=== PATIENT | female | born 1955 | race Caucasian/White ===

== ENCOUNTER 2024-01-09 09:11 | Outpatient (AMB) | payer MEDICARE, SELFPAY ==
--- NOTE | 2024-01-09 09:59 | MHC.OFFWIV ---
Intake Vital Signs 01/09/24 10:01 Weight 89.358 kg BP 136/80 Blood Pressure Location Rt brachial Position Sitting Pulse 74 Pulse Source Pulse Oximeter Pulse Oximetry (%) 98 Oxygen Delivery Method Room Air Intake Visit Reasons: EST/balance issues fell on tuesday (lobby) Intake Note: Patient here is having balance issues, has had a couple of falls since moving here in august. pt also mentions she has been having getting words out and memory issues. Son has a concern of maybe pt over medicating. Patient Tobacco Use Status: Former Tobacco user Accompanied by: Son Allergies No Known Allergies Allergy (Verified 01/09/24 10:06) Do you need a note to return to daycare/school/sports/work: No HPI HPI Comments History of Present Illness Details 1028 68 year old female hx of bipolar d/o, htn presents w/ difficulties w/ ambulation and changes in speech over the past 1-2 weeks worsening. She is here with her son who recently brought her here from [place]. These changes are new and has never occurred in the past. Patient tells me know something is really wrong because I have never felt this way. Denies chest pain, shortness breath, fevers, chills, nausea, vomiting, abdominal pain, changes in urination Patient with a very unsteady shuffling gait swaying from side to side and an interrupted speech with multiple pauses between words and some confusion. Concerns for TIA/stroke/electrolyte abnormalities/UTI. Patient should be evaluated in the emergency department [facility] Social History Patient Tobacco Use Status: Former Tobacco user Review of Systems Const All systems reviewed & are unremarkable except as noted in HPI and below Physical Exam Vital Signs: Last Vital Signs Pulse 74 01/09/24 10:01 BP 136/80 01/09/24 10:01 Pulse Ox 98 01/09/24 10:01 Oxygen Delivery Method Room Air 01/09/24 10:01 vss Appearance: Alert.? Oriented X3.? No acute distress.? Head: Normocephalic, atraumatic, no step-offs or deformities Eyes: Pupils equal, round and reactive to light.? ENT: Pharynx normal.? Neck: Normal inspection.? Neck supple.? CVS: Normal heart rate and rhythm.? Pulses normal.? Respiratory: No respiratory distress.? Breath sounds normal.? Abdomen: Soft and nontender.? Skin: Skin warm and dry.? Normal skin color.? Normal skin turgor.? Extremities: No lower extremity edema.? No calf ttp. 5/5 strength to bilateral upper and lower extremities Back: No midline tenderness, no C-spine tenderness, full range of motion, no CVA tenderness bilaterally Neuro: Oriented X 3.? No motor deficit.? No sensory deficit. CN 2-12 intact Assessment & Plan Assessment & Plan (1) Difficulty with speech: Code(s): R47.9 - Unspecified speech disturbances (2) Gait abnormality: Code(s): R26.9 - Unspecified abnormalities of gait and mobility Plan Take your medications as prescribed. If you were prescribed antibiotics today, it is important that you take your medication to their entirety, do not skip any doses, do not finish them early. Follow-up with your primary care provider this week. Return to the emergency department with new or worsening symptoms. Such as fevers, chills, chest pain, shortness of breath, nausea, vomiting, dizziness, headache, vision changes, lethargy In case of emergency call 911 Coding Level of Care Code Est Pt Level 3 (87695) Diagnoses Difficulty with speech R47.9 Gait abnormality R26.9
[2024-01-09 10:01] VITALS: BP 136/80; PULSE 74; O2SAT 98
== END 2024-01-09 15:27 | disposition home or self-care (01) ==
PROVIDERS: PCP Nurse Practitioner Family; Visit Provider Physician Assistant
DX: R47.9 Unspecified speech disturbances (principal); R26.9 Unspecified abnormalities of gait and mobility
CPT/HCPCS: 99213

== ENCOUNTER 2024-01-09 10:51 | Emergency (ER) | payer MEDICARE, SELFPAY ==
--- NOTE | ~2024-01-09 | CT_ITS ---
EXAMINATION: CT HEAD WITHOUT CONTRAST CT CERVICAL SPINE WITHOUT CONTRAST CLINICAL INFORMATION: Fall. Head strike. Neurologic deficits. COMPARISON: None available. TECHNIQUE: Contiguous axial imaging was performed from the skull base to vertex without intravenous administration of contrast. Contiguous axial imaging was performed from the upper chest through the skull base without intravenous administration of contrast. Coronal and sagittal reformats were obtained at the acquisition workstation. This CT examination was performed using dose optimization techniques as appropriate, variously including the following: *Automated exposure control. *Adjustment of mA and/or kV according to patient size (this includes techniques or standardized protocols for targeted exams where dose is matched to indication/reason for exam; i.e. extremities or head). *Use of iterative reconstruction technique. DLP: 1144 mGy-cm FINDINGS: Head: There is no evidence of acute intracranial hemorrhage or edematous territorial infarction. Delgado-white matter differentiation is preserved. Scattered and partially confluent hypoattenuation in the periventricular and deep white matter are consistent with mild to moderate microangiopathy. Proportional prominence of the ventricles and sulcal spaces without evidence of obstructive hydrocephalus. No abnormal mass effect or midline shift. No extra-axial fluid collections. No acute soft tissue or osseous abnormalities. Mild mucosal thickening of the paranasal sinuses. The mastoid air cells and middle ear cavities are clear. Cervical Spine: Instrumented anterior fusion of C4-C7. The atlantooccipital and atlantoaxial articulations remain well aligned. Moderate degenerative arthropathy of the atlantodental articulation. Straightening of the normal cervical lordosis. Mild degenerative anterolisthesis of C7 on T1. Otherwise, there is anatomic alignment of the vertebral bodies and posterior elements. No evidence of acute fracture or subluxation. The vertebral body heights are maintained. Facet and uncovertebral joint arthropathy leads to osseous encroachment on the neural foramina from C2-T1. There is no prevertebral soft tissue swelling. The thyroid gland and remaining cervical soft tissues are within normal limits. The lung apices demonstrate no abnormalities. CT/CT cervical spine wo IV con IMPRESSION: 1. No evidence of acute intracranial hemorrhage or edematous territorial infarction. 2. No evidence of acute fracture or traumatic subluxation of the cervical spine. 3. Mild to moderate underlying microangiopathy and generalized cerebral volume loss. 4. Instrumented anterior fusion of C4-C7. Moderate multilevel degenerative spondyloarthropathy of the cervical spine.
--- NOTE | ~2024-01-09 | MR_ITS ---
EXAMINATION: MR BRAIN WITHOUT CONTRAST CLINICAL INFORMATION: Question stroke. COMPARISON: Head CT dated 01/09/2024. TECHNIQUE: Multiplanar, multisequence imaging of the brain was performed without contrast. FINDINGS: No diffusion abnormalities are identified to suggest an acute infarct. The ventricles are normal in size. No mass effect or midline shift is seen. Mild to moderate scattered white matter signal changes are visible. There is mild to moderate bifrontal volume loss with concordant ex vacuo dilatation of the ventricles. There is symmetric T1 hyperintense signal change in the globus pallidus of the basal ganglia bilaterally. No extra-axial fluid collections are seen. The brainstem and cerebellum are normal. The gradient refocused acquisition is normal. The craniovertebral junction, marrow signal, and midline structures are normal. The major intracranial flow voids at the level of the [place] of [place] are preserved. The dural venous sinus flow voids are maintained. There is a mild amount of fluid in the right mastoid air cells. The left mastoid air cells are clear. There is a [id number] fluid level in the right sphenoid sinus and mild to moderate ethmoid sinus mucosal thickening. MR/MR head/brain wo con IMPRESSION: No acute intracranial process. No acute infarct. Scattered nonspecific mild to moderate white matter signal changes which may be due to chronic microangiopathy. Symmetric signal changes in the globus pallidus of the basal ganglia bilaterally is nonspecific but can be seen in the setting of hepatic dysfunction; clinically correlate.
--- NOTE | 2024-01-09 11:31 | ED.GENADULT ---
HPI - General Adult General Chief complaint: Neuro Symptoms/Deficit Stated complaint: falling memory loss Time Seen by Provider: 01/09/24 12:26 History of Present Illness HPI narrative: this is RME note I already signed the chart Related Data Home Medications Medication Instructions Recorded Confirmed acetaminophen 325 mg tablet 650 mg PO Q8H PRN ARTHRITIS PAIN 01/09/24 01/09/24 albuterol sulfate 90 mcg/actuation 1 inh inhalation BID PRN Shortness 01/09/24 01/09/24 aerosol inhaler Of Breath Or Wheezing aspirin 81 mg tablet,delayed 81 mg PO DAILY 01/09/24 01/09/24 release atorvastatin 80 mg tablet 80 mg PO DAILY 01/09/24 01/09/24 carbamazepine 200 mg tablet 200 mg PO TID 01/09/24 01/09/24 citalopram 40 mg tablet 40 mg PO DAILY 01/09/24 01/09/24 clopidogrel 75 mg tablet (Plavix) 75 mg PO DAILY 01/09/24 01/09/24 cyclobenzaprine 10 mg tablet 10 mg PO BEDTIME PRN Headache 01/09/24 01/09/24 ergocalciferol (vitamin D2) 1,250 1,250 mcg PO LEYVA 01/09/24 01/09/24 mcg (50,000 unit) capsule famotidine 40 mg tablet 40 mg PO BEDTIME 01/09/24 01/09/24 furosemide 20 mg tablet 20 mg PO DAILY 01/09/24 01/09/24 lactobacillus combination no.4 3 3,000 mmu cells PO DAILY 01/09/24 01/09/24 billion cell capsule (Probiotic) lorazepam 1 mg tablet 1 mg PO QID PRN Anxiety 01/09/24 01/09/24 metoprolol tartrate 25 mg tablet 12.5 mg PO DAILY 01/09/24 01/09/24 multivitamin with minerals-folic 1 tab PO DAILY 01/09/24 01/09/24 acid 0.4 mg tablet omega-3 fatty acids 1,000 mg PO DAILY 01/09/24 01/09/24 quetiapine 200 mg tablet,extended 200 mg PO BEDTIME 01/09/24 01/09/24 release 24 hr temazepam 30 mg capsule 30 mg PO BEDTIME PRN Sleep 01/09/24 01/09/24 Allergies Allergy/AdvReac Type Severity Reaction Status Date / Time No Known Allergies Allergy Verified 01/09/24 10:06 [facility] Social History Social History Patient Tobacco Use Status: Former Tobacco user Smoked in Last 30 Days: No Use of substances other than those prescribed or required for medical reasons: No Advance Directives: No Advance Directives Information Provided: No Physical Exam ED Vital Signs: Vital Signs - 24 hr 01/09/24 11:32 01/09/24 14:05 01/09/24 14:08 Temperature 98.1 F 97.7 F Pulse Rate 94 95 89 Respiratory Rate 16 18 Blood Pressure 127/80 131/74 146/94 H Pulse Oximetry 97 94 96 Oxygen Delivery Method Room Air Room Air 01/09/24 15:40 Temperature Pulse Rate 89 Respiratory Rate 17 Blood Pressure 146/94 H Pulse Oximetry 96 Oxygen Delivery Method Room Air BMI result Body Mass Index 38.3 Course Course Course Narrative: RME:?68 yo female here from (per Bobbi) for eval of gait/ balance disturbance, speech changes x1 week. admits to fall with head strike 3 days ago, on plavix. unknown down time. son saw her 1 day following fall. takes lorazepam- manages medications herself. 4/5 strength to RUE. no facial droop. slurred speech. aox3. ambulating w/ walker. labs imaging ordered Full HPI, ROS and PE to be performed by the primary ED provider. Reevaluation(s) Reevaluation #1: MRI showed no acute intracranial pathology, awaiting for case management and placement versus home physical therapy will Start the patient under physician observation. MRI of the brain:No acute intracranial process. No acute infarct. Scattered nonspecific mild to moderate white matter signal changes which may be due to chronic microangiopathy. Symmetric signal changes in the globus pallidus of the basal ganglia bilaterally is nonspecific but can be seen in the setting of hepatic dysfunction; clinically correlate. Time: 19:23 Medications Administered Discontinued Medications Generic Name Dose Route Start Last Admin Trade Name Freq PRN Reason Stop Dose Admin Magnesium Sulfate 2 gm in 50 mls @ 25 mls/hr 01/09/24 13:01 01/09/24 15:04 Magnesium Sulfate/H2o IV 01/09/24 15:00 Infused ONCE ONE Infusion Potassium Chloride 20 meq 01/09/24 14:02 01/09/24 14:05 Potassium Chloride Er 20 Meq Tab.Er.Prt PO 01/09/24 14:03 20 meq ONCE ONE Administration Medical Decision Making Medical Decision Making [facility] Narrative: Patient presented to emergency department because of frequent fall increasing weakness will check labs ST-T C-spine. Differential Diagnosis Differential Diagnoses: The differential diagnosis associated with the presentation includes Differential diagnosis is broad which include the CVA/polypharmacy Lab Data 01/09/24 12:28 01/09/24 12:28 Labs: Lab Results 01/09/24 01/09/24 01/09/24 Range/Units 12:28 16:24 16:27 WBC 3.5 L (4.8-10.8) X10*3/uL RBC 4.13 L (4.20-5.50) X10*6/uL Hgb 12.1 (12.0-16.0) g/dl Hct 36.3 L (37.0-47.0) % MCV 87.9 (80.0-98.0) fL MCH 29.3 (27.0-33.0) pg MCHC 33.3 (31.0-35.0) g/dl RDW 13.9 (11.0-16.0) % Plt Count 91 L (160-400) X10*3/uL MPV 10.0 (9.4-12.3) fL Immature Gran % (Auto) 0.6 H (0.0-0.4) % Neut % (Auto) 61.4 (45-73) % Lymph % (Auto) 19.4 L (20-40) % Cloud % (Auto) 14.8 H (2-11) % Eos % (Auto) 2.9 (0-4) % Baso % (Auto) 0.9 (0-2) % Lymph # (Auto) 0.7 L (1.2-4.9) X10*3/uL [place] # (Auto) 0.5 (0.1-1.2) X10*3/uL Eos # (Auto) 0.1 (0.0-0.4) X10*3/uL Baso # (Auto) 0.0 (0.0-0.2) X10*3/uL Abs Immat Gran (auto) 0.02 (0.00-0.03) X10*3/uL Absolute Neuts (auto) 2.1 (2.0-8.3) x10*3/uL Absolute Nucleated RBC 0.000 (0.0-0.012) X10*3/uL Nucleated RBC % (auto) 0.0 (0.0-0.2) /100WBC PT 15.3 H (11.1-13.3) SEC INR 1.3 H (0.9-1.1) APTT 38.9 H (26.0-36.8) SEC Sodium 140 (135-145) mmol/L Potassium 3.1 L (3.3-5.1) mmol/L Chloride 105 (96-108) mmol/L Carbon Dioxide 26 (22-29) mmol/L Anion Gap 12 (12-20) BUN 9 (9-16) mg/dL Creatinine 0.85 (0.5-1.4) mg/dL Estim Creat Clear Calc 62.8 Estimated GFR > 60 Random Glucose 104 (60-115) mg/dL Calcium 8.6 (8.4-10.2) mg/dL Magnesium 1.3 L* 1.8 (1.6-2.6) mg/dL Total Bilirubin 1.4 H (0.0-1.0) mg/dL AST 51 H (5-31) U/L ALT 24 (0-31) U/L Alkaline Phosphatase 171 H (39-117) U/L Total Creatine Kinase 450 H (26-140) U/L Total Protein 6.8 (6.5-8.0) g/dL Albumin 3.3 L (3.5-5.0) g/dL Urine Color Yellow Urine Appearance Clear Urine pH 7.5 (5.0-9.0) Ur Specific [place] 1.010 (1.005-1.025) Urine Protein Negative (Neg-Trace) mg/dL Urine Glucose (UA) Negative (Negative) mg/dL Urine Ketones Negative (Negative) mg/dL Urine Blood Negative (Negative) Urine Nitrite Negative (Negative) Ur Leukocyte Esterase Trace H (Negative) Urine RBC 0-2 (0-2) /HPF Urine WBC 0-5 (0-5) /HPF Ur Squamous Epith Cells 0-2 (0-2) /HPF Urine Bacteria None Seen (None Seen) Hyaline Casts 0-2 (0-2) /LPF COVID-19 (CODY) Negative (Negative) COVID-19 Clin Com See Note Discharge Plan Discharge Clinical Impression: Fall, Hypomagnesemia, Hypokalemia, Polypharmacy Patient Disposition: Still a Patient Prescriptions: No Action carbamazepine 200 mg Tablet 200 mg PO TID quetiapine 200 mg Tablet Extended Release 24 Hr 200 mg PO BEDTIME acetaminophen 325 mg Tablet 650 mg PO Q8H PRN (Reason: ARTHRITIS PAIN) aspirin 81 mg Tablet,Delayed Release (Dr/Ec) 81 mg PO DAILY furosemide 20 mg Tablet 20 mg PO DAILY ergocalciferol (vitamin D2) 1,250 mcg (50,000 unit) Capsule 1,250 mcg PO LYEVA [place] 3 Capsule 1,000 mg PO DAILY multivit with min-folic acid [Daily Multiple For Women 50+] 0.4 mg Tablet 1 tab PO DAILY Probiotic 3 billion cell Capsule 3,000 mmu cells PO DAILY Rx Instructions: administer with a meal cyclobenzaprine 10 mg tablet 10 mg PO BEDTIME PRN (Reason: Headache) famotidine 40 mg tablet 40 mg PO BEDTIME metoprolol tartrate 25 mg tablet 12.5 mg PO DAILY atorvastatin 80 mg tablet 80 mg PO DAILY albuterol sulfate 90 mcg/actuation HFA aerosol inhaler 1 inh inhalation BID PRN (Reason: Shortness Of Breath Or Wheezing) clopidogrel [Plavix] 75 mg tablet 75 mg PO DAILY lorazepam 1 mg tablet 1 mg PO QID PRN (Reason: Anxiety) citalopram 40 mg tablet 40 mg PO DAILY temazepam 30 mg capsule 30 mg PO BEDTIME PRN (Reason: Sleep)
[2024-01-09 11:32] VITALS: BP 127/80; PULSE 94; RESP 16; TEMP 36.7; O2SAT 97; BMI 38.3
[2024-01-09 12:32] LABS: MANUAL DIFF FLAG NO
--- NOTE | 2024-01-09 12:33 | ED.NEUROSD ---
HPI - Neuro Symptoms/Deficit General Chief Complaint: Neuro Symptoms/Deficit Stated Complaint: falling memory loss Time Seen by Provider: 01/09/24 12:26 Source: patient Mode of arrival: ambulatory Limitations: no limitations History of Present Illness HPI Narrative: This is a 68 years old female referred to us from the urgent care because for the last week she has been progressively getting weak she fell on Tuesday at home, to be noted though she has taking a lot of psychiatric medication which included benzodiazepine Flexeril. She fell on Tuesday because she lost her balance. Denies any chest pain shortness of breath. Onset (ago): week(s) (1) Timing confirmed by: family member (son) Severity: mild Quality: weak Relieving factors: none Exacerbating factors: none Context: gradual onset Associated symptoms: denies other symptoms Related Data Home Medications Medication Instructions Recorded Confirmed albuterol sulfate 90 mcg/actuation 1 inh inhalation QID 01/09/24 aerosol inhaler atorvastatin 80 mg tablet 80 mg PO DAILY 01/09/24 carbamazepine 200 mg 200 mg PO BID 01/09/24 capsule,extended release [id number] citalopram 40 mg tablet 40 mg PO DAILY 01/09/24 clopidogrel 75 mg tablet (Plavix) 75 mg PO DAILY 01/09/24 cyclobenzaprine 10 mg tablet 10 mg PO BEDTIME PRN 01/09/24 famotidine 40 mg tablet 40 mg PO BEDTIME 01/09/24 lorazepam 1 mg tablet 1 mg PO TID PRN 01/09/24 metoprolol tartrate 25 mg tablet 25 mg PO DAILY 01/09/24 quetiapine 200 mg tablet 200 mg PO BEDTIME 01/09/24 temazepam 30 mg capsule 30 mg PO BEDTIME PRN 01/09/24 Allergies Allergy/AdvReac Type Severity Reaction Status Date / Time No Known Allergies Allergy Verified 01/09/24 10:06 Review of Systems Constitutional: Constitutional: Reports no additional constitutional complaints ENT: Reports system reviewed and no additional complaints, except as documented [facility] Past Medical History Attestation statement: The following information was validated with the patient. [facility] Narrative: Bipolar disorder,htn Social History Social History Patient Tobacco Use Status: Former Tobacco user Smoked in Last 30 Days: No Use of substances other than those prescribed or required for medical reasons: No Advance Directives: No Advance Directives Information Provided: No Physical Exam Vital Signs: Vital Signs: Last Vital Signs Temp 97.7 F 01/09/24 14:05 Pulse 89 01/09/24 15:40 Resp 17 01/09/24 15:40 BP 146/94 H 01/09/24 15:40 Pulse Ox 96 01/09/24 15:40 O2 Del Method Room Air 01/09/24 15:40 BMI result Body Mass Index 38.3 Const: General: cooperative Nutritional Appearance: well nourished Orientation/consciousness: patient oriented x3 Limitations: no limitations HEENT: Head: Yes normal to inspection General nose exam: Normal external nose present Face and sinus: Yes normal facial exam Mouth: Normal oral and palatal mucosa present Neck: Neck: Yes normal visual inspection and Yes full ROM Chest: Chest palpation & inspection: normal inspection of the chest Resp: Effort & Inspection: normal respiratory effort Auscultation: rhonchi Cardio: Jugular venous distension: no JVD Rate: regular rate Rhythm: regular rhythm GI: Inspection: Yes normal to inspection Palpation (GI): Soft to palpation, not firm and nontender Auscultation: normal bowel sounds Neuro: General: patient oriented x3 Cranial nerves: Yes CN's II-XII intact bilaterally Cognition (Neuro): normal cognition Course Reevaluation(s) Reevaluation #1: pt did well with PT I think the reason for her symptoms is polypharmacy ,will get MRI brain anyway if negative will d/c home I am off shift now signed out to Dr Farris Time: 16:11 Medications Administered Discontinued Medications Generic Name Dose Route Start Last Admin Trade Name Freq PRN Reason Stop Dose Admin Magnesium Sulfate 2 gm in 50 mls @ 25 mls/hr 01/09/24 13:01 01/09/24 15:04 Magnesium Sulfate/H2o IV 01/09/24 15:00 Infused ONCE ONE Infusion Potassium Chloride 20 meq 01/09/24 14:02 01/09/24 14:05 Potassium Chloride Er 20 Meq Tab.Er.Prt PO 01/09/24 14:03 20 meq ONCE ONE Administration Procedures EJ/Peripheral Line Arm R: Time Out Performed: Yes Skin Cleansed in Sterile Fashion: Yes Size (gauge): 20 IV Secured and Dressing Applied: Yes Patient Tolerated Procedure: well Additional Comments: under US cannulated rt brachial vein with 20 saturnino catheter Medical Decision Making Lab Data 01/09/24 12:28 01/09/24 12:28 Labs: Lab Results 01/09/24 Range/Units 12:28 WBC 3.5 L (4.8-10.8) X10*3/uL RBC 4.13 L (4.20-5.50) X10*6/uL Hgb 12.1 (12.0-16.0) g/dl Hct 36.3 L (37.0-47.0) % MCV 87.9 (80.0-98.0) fL MCH 29.3 (27.0-33.0) pg MCHC 33.3 (31.0-35.0) g/dl RDW 13.9 (11.0-16.0) % Plt Count 91 L (160-400) X10*3/uL MPV 10.0 (9.4-12.3) fL Immature Gran % (Auto) 0.6 H (0.0-0.4) % Neut % (Auto) 61.4 (45-73) % Lymph % (Auto) 19.4 L (20-40) % [place] % (Auto) 14.8 H (2-11) % Eos % (Auto) 2.9 (0-4) % Baso % (Auto) 0.9 (0-2) % Lymph # (Auto) 0.7 L (1.2-4.9) X10*3/uL [place] # (Auto) 0.5 (0.1-1.2) X10*3/uL Eos # (Auto) 0.1 (0.0-0.4) X10*3/uL Baso # (Auto) 0.0 (0.0-0.2) X10*3/uL Abs Immat Gran (auto) 0.02 (0.00-0.03) X10*3/uL Absolute Neuts (auto) 2.1 (2.0-8.3) x10*3/uL Absolute Nucleated RBC 0.000 (0.0-0.012) X10*3/uL Nucleated RBC % (auto) 0.0 (0.0-0.2) /100WBC PT 15.3 H (11.1-13.3) SEC INR 1.3 H (0.9-1.1) APTT 38.9 H (26.0-36.8) SEC Sodium 140 (135-145) mmol/L Potassium 3.1 L (3.3-5.1) mmol/L Chloride 105 (96-108) mmol/L Carbon Dioxide 26 (22-29) mmol/L Anion Gap 12 (12-20) BUN 9 (9-16) mg/dL Creatinine 0.85 (0.5-1.4) mg/dL Estim Creat Clear Calc 62.8 Estimated GFR > 60 Random Glucose 104 (60-115) mg/dL Calcium 8.6 (8.4-10.2) mg/dL Magnesium 1.3 L* (1.6-2.6) mg/dL Total Bilirubin 1.4 H (0.0-1.0) mg/dL AST 51 H (5-31) U/L ALT 24 (0-31) U/L Alkaline Phosphatase 171 H (39-117) U/L Total Creatine Kinase 450 H (26-140) U/L Total Protein 6.8 (6.5-8.0) g/dL Albumin 3.3 L (3.5-5.0) g/dL Discharge Plan Discharge Clinical Impression: Hypomagnesemia, Hypokalemia, Polypharmacy Fall Qualifiers: Encounter type: initial encounter Qualified Code(s): W19.XXXA - Unspecified fall, initial encounter Patient Disposition: Still a Patient Prescriptions: No Action cyclobenzaprine 10 mg tablet 10 mg PO BEDTIME PRN famotidine 40 mg tablet 40 mg PO BEDTIME metoprolol tartrate 25 mg tablet 25 mg PO DAILY atorvastatin 80 mg tablet 80 mg PO DAILY albuterol sulfate 90 mcg/actuation HFA aerosol inhaler 1 inh inhalation QID clopidogrel [Plavix] 75 mg tablet 75 mg PO DAILY lorazepam 1 mg tablet 1 mg PO TID PRN quetiapine 200 mg tablet 200 mg PO BEDTIME citalopram 40 mg tablet 40 mg PO DAILY carbamazepine 200 mg capsule, ER multiphase 12 hr 200 mg PO BID temazepam 30 mg capsule 30 mg PO BEDTIME PRN
[2024-01-09 12:36] LABS: Basophils Percent Auto 0.9 % (0-2); Eosinophils Absolute Auto 0.1 X10*3/uL (0.0-0.4); Eosinophils Percent Auto 2.9 % (0-4); Hematocrit 36.3 % (37.0-47.0); Hemoglobin 12.1 g/dl (12.0-16.0); Imm Gran Abs Auto 0.02 X10*3/uL (0.00-0.03); Imm Gran Pct Auto 0.6 % (0.0-0.4); Lymphocytes Absolute Auto 0.7 X10*3/uL (1.2-4.9); Lymphocytes Percent Auto 19.4 % (20-40); Mean Corpuscular HGB Conc 33.3 g/dl (31.0-35.0); Mean Corpuscular Hemoglobin 29.3 pg (27.0-33.0); Mean Corpuscular Volume 87.9 fL (80.0-98.0); Monocytes Absolute Auto 0.5 X10*3/uL (0.1-1.2); Monocytes Percent Auto 14.8 % (2-11); Neutrophils Absolute Auto 2.1 x10*3/uL (2.0-8.3); Neutrophils Percent Auto 61.4 % (45-73); Red Blood Count 4.13 X10*6/uL (4.20-5.50); Red Cell Distribution Width 13.9 % (11.0-16.0); White Blood Count 3.5 X10*3/uL (4.8-10.8)
[2024-01-09 12:44] LABS: INTERNATIONAL NORM RATIO 1.3 (0.9-1.1); Prothrombin Time 15.3 SEC (11.1-13.3)
[2024-01-09 12:47] LABS: Partial Thromboplastin Time 38.9 SEC (26.0-36.8)
[2024-01-09 12:49] LABS: Alanine Aminotransferase 24 U/L (0-31); Albumin Level 3.3 g/dL (3.5-5.0); Alkaline Phosphatase 171 U/L (39-117); Anion Gap 12 (12-20); Aspartate Amino Transferase 51 U/L (5-31); Bilirubin Total 1.4 mg/dL (0.0-1.0); Blood Urea Nitrogen 9 mg/dL (9-16); Calcium 8.6 mg/dL (8.4-10.2); Carbon Dioxide 26 mmol/L (22-29); Chloride 105 mmol/L (96-108); Creatinine Clr Calc Pharmacy 62.8; Estimated Glomerular Filt Rate > 60; Glucose Random 104 mg/dL (60-115); Magnesium 1.3 mg/dL (1.6-2.6); Potassium 3.1 mmol/L (3.3-5.1); Sodium 140 mmol/L (135-145); Total Protein 6.8 g/dL (6.5-8.0)
[2024-01-09 12:55] LABS: Platelet Count 91 X10*3/uL (160-400)
--- NOTE | 2024-01-09 13:44 | PC.NURSE ---
pt is alert and oriented, skin pwd, respirations even and unlabored, pt reports for about a month not feeling herself, having difficulty work finding that comes and goes, feeling off balanced and general weak, had a fall few days ago and hit the back of her head and right upper arm bruising noticed, no viable facial droop, speech is clear at this time, moving all extremities but the left arm had a very small drift with slightly weaker hand grasp, denies pain at this time, vs stable and ns on the monitor
[2024-01-09] MEDS: Magnesium Sulfate/H2O 2 GM/50 ML PIGGYBACK IV (14:03)
[2024-01-09 14:05] VITALS: BP 131/74; PULSE 95; RESP 18; TEMP 36.5; O2SAT 94
[2024-01-09] MEDS: Potassium Chloride ER 20 MEQ TAB.ER.PRT PO (14:05)
[2024-01-09 14:08] VITALS: BP 146/94; PULSE 89; O2SAT 96
[2024-01-09 15:40] VITALS: BP 146/94; PULSE 89; RESP 17; O2SAT 96
[2024-01-09 16:35] LABS: Appearance Urine Clear; Color Urine Yellow; Glucose Urine UA Negative (Negative); Leukocyte Esterase Urine Trace (Negative); Nitrite Urine Negative (Negative); PH 7.5 (5.0-9.0); UMIC TRIGGER UACC YES; Urine Blood Negative (Negative); Urine Ketones Negative (Negative); Urine Protein Negative (Neg-Trace)
[2024-01-09 16:38] LABS: Bacteria Urine None Seen (None Seen); Hyaline Casts Urine 0-2 /LPF (0-2); RBC Urine 0-2 /HPF (0-2); Squamous Epithelial Cell Urine 0-2 /HPF (0-2); WBC Urine 0-5 /HPF (0-5)
[2024-01-09 16:47] LABS: Magnesium 1.8 mg/dL (1.6-2.6)
[2024-01-09 17:00] LABS: COVID-19 Test Negative (Negative); IDNOW Serial# 152EDE1D
--- NOTE | 2024-01-09 17:23 | PC.NURSE ---
Pt off to MRI
--- NOTE | 2024-01-09 17:37 | MHC.CM.ED ---
Addendum entered by Senait Jaquez 01/09/24 21:17: Pt noted to have steady gait with rollator. CM met with daughter in law and son at their request. Daughter in law tells CM that patient does not always use her rollator and will furniture surf at home. They understand that CM cannot arrange home PT without a PCP. They are aware that CM will follow up with Adult Medicine tomorrow regarding earlier PCP appointment for this patient. Also aware that task was sent to [facility] for intake. Contact card given. Addendum entered by Senait Jaquez 01/09/24 19:44: Awaiting am call from Adult Primary Medicine RE: First visit appointment earlier than scheduled 04/11. ([id number]). Pt to remain overnight per provider to facilitate Outpatient therapy order and earlier PCP appointment. CM to call Dr. Loera's laboratory secretary for outpatient order form.- Tori ([id number]). ED provider will need to complete and CM will fax to [facility]. Pt and son aware and agreeable. CM will follow for discharge. Addendum entered by Senait Jaquez 01/09/24 17:55: Per Dr. Loera, the PCP's normally order outpatient physical therapy. His laboratory secretary does have a form that the provider can complete for outpatient PT and then it gets faxed to PT. CM will follow up in the am. Son is requesting to speak with a provider regarding his mothers medications and possible interactions. Dr. French aware. CM called and spoke with pharmacist. They will meet with jung galindo. Addendum entered by Senait Jaquez 01/09/24 17:52: CM called Adult primary care in [place] to discuss ordering outpatient PT, as ED provider cannot order it. Also discussed patient situation and need for an earlier appointment with Gunnar Torres. CM will need to follow up in the morning regarding possible earlier appointment for this patient. Original Note: CM met with patient and her son/HCP/POA Gunnar Chambers ([phone]) per request of Dr. Baker. Pt is alert and oriented x3. Very pleasant. Moved to area from [place] to be closer to her son. Pt has had some medical issues and family wanted her closer to them. Pt had lived in [facility] for 20 years. Pt has an initial PCP appointment with Gunnar Torres on April 11. Pt had a fall today and some memory issues. Family has some concerns regarding her medications. Pt is normally independent and still drives. PT is recommending outpatient physical therapy. Pt uses a rollator. Discussed referral to [facility] for intake for possible services, including [employer]-light housekeeping, laundry and life alert. Task sent to [facility] with request to contact patient's son, Gunnar. CM following for discharge planning.
--- NOTE | 2024-01-09 18:14 | PHA.MEDREC ---
Pharmacy Consult ? Medication Reconciliation Pharmacy has completed the medication reconciliation.MED REC COMPLETE USING LIST PROVIDED AT BEDSIDE BY SON. HE IS UNSURE OF HOW CONSISTENT HIS MOTHER IS AT TAKING HER MEDICATIONS. THIS INFORMATION IS BEING RELAYED TO PROVIDER.
[2024-01-09 20:11] VITALS: BP 130/80; PULSE 89; RESP 16; TEMP 36.3; O2SAT 97
--- NOTE | 2024-01-09 20:55 | PC.NURSE ---
pt and family educated on plan of care by Dr. Oliveira and Smiley CM RN. pt and family deny further questions/concerns. nad. pt awaiting cm services consult in am. report given to overflow rn. awaiting transport.
[2024-01-09 21:32] VITALS: BP 121/68; PULSE 85; RESP 18; TEMP 36.6; O2SAT 97
--- NOTE | 2024-01-09 22:03 | PC.NURSE ---
pt came from ed and placed in overflow bed 10. pt reported that she has a small infiltrated site from an iv on previous shift in main ed from magnesium- rn observed, appears about 2 inches of elevation, no redness, mildly cool but no other issues noted. called pharmacy-[facility] pharmacist stated to place cold pack for magnesium. elevated w pillow. pt reports she feels back to baseline with no noted neuro deficits (moves all extrem. equally, clear speech, no drift of extrem., face symmetrical, aox4, strong grasp, speaks w/o difficulty).
--- NOTE | 2024-01-09 22:17 | PC.NURSE ---
this rn working on home medication list with patient at bedside.
--- NOTE | 2024-01-09 22:30 | PC.NURSE ---
home meds confirmed.
--- NOTE | 2024-01-09 23:39 | PC.NURSE ---
this rn assumed care of pt. pt resting in stretcher watching tv, no acute distress noted. pt reporting right sided neck pain, request to [facility] for tylenol.
[2024-01-10] MEDS: Acetaminophen 325 MG TABLET 650 MG PO ×2 (00:06→09:38)
--- NOTE | 2024-01-10 00:09 | PC.NURSE ---
pt medicated per mar, pt tolerated well with water.
--- NOTE | 2024-01-10 00:47 | PC.NURSE ---
pt ambulated to bathroom with walker with steady gait, denies dizziness and SOB.
[2024-01-10 01:39] VITALS: BP 115/68; PULSE 86; RESP 16; O2SAT 94
[2024-01-10 06:12] VITALS: BP 111/60; PULSE 78; RESP 20; O2SAT 98
--- NOTE | 2024-01-10 10:15 | PC.NURSE ---
assumed care of pt at 0700. pt a&o x4, pleasant, calm, and cooperative. pt ate breakfast and ambulated with walker and standby assist to bathroom, steady gait. pt asking about when she is going to be discharged. ARAVIND Martines and AZAM Jaramillo both notified. AZAM Jaramillo sts trying to set up outpatient PT. pt updated and aware of care plan. pt medicated per jan with PRN tylenol for neck pain. pt currently resting quietly in bed, in no apparent distress. rr even/unlabored. call harmon within reach. plan of care ongoing.
--- NOTE | 2024-01-10 11:57 | MHC.CM.PN ---
Patient remains in ER overflow. Outpatient physical therapy order form signed by Che NAZARIO and faxed to [facility]. Patient aware office will call to arrange an appointment. Dorys from [facility] has already spoke to patient. T/W attempted to move up patient's 1st PCP appointment to establish care. Unfortunately this is not feasable at this time because Dr Mcgowan has decreased her hours. Her VACUUM EXTRACTOR OPERATOR, Jamison, is not able to take medically complex patients. MERY BelcherO, will try to reach out to office to get a sooner appointment. Patient and son Gunnar are both aware of this. Gunnar will be at [facility] to transport patient home at 1230pm. Patient, Mita REESE and Che NAZARIO aware. Continue to monitor for d/c needs.
== END 2024-01-10 12:53 | disposition home or self-care (01) ==
PROVIDERS: Physician Assistant Medical; Emergency Provider Emergency Medicine; PCP Nurse Practitioner Family
DX: E83.42 Hypomagnesemia (principal); E87.6 Hypokalemia; Z79.899 Other long term (current) drug therapy; Z91.81 History of falling; Z11.52 Encounter for screening for COVID-19
CPT/HCPCS: 36410; 36415; 70450; 70551; 72125; 80053; 81001; 82550; 83735; 85025; 85610; 85730; 87635; 96365; 97161; 99285; J3475

== ENCOUNTER 2024-02-06 08:58 | Outpatient (AMB) | payer MEDICARE, SELFPAY ==
--- NOTE | 2024-02-06 09:00 | A.OFFPC_ITS ---
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 interaction Allergies No Known Allergies Allergy (Verified 02/27/24 22:06) Medication List - Last Reconciled 02/06/24 by Molly Mcgowan MD acetaminophen 650 mg PO Q8H PRN albuterol sulfate 90 mcg/actuation 1 inh inhalation BID PRN ammonium lactate 12% 1 appl topical BID aspirin 81 mg PO DAILY atorvastatin 80 mg PO DAILY carbamazepine 200 mg PO TID citalopram 40 mg PO DAILY clopidogrel (Plavix) 75 mg PO DAILY cyclobenzaprine 10 mg PO BEDTIME PRN ergocalciferol (vitamin D2) 1,250 mcg PO LEYVA famotidine 40 mg PO BEDTIME furosemide 20 mg PO DAILY lactobacillus combination no.4 (Probiotic) 3,000 mmu cells PO DAILY metoprolol tartrate 12.5 mg PO DAILY multivit with min-folic acid 0.4 mg 1 tab PO DAILY nystatin 1 appl topical DAILY omega-3 fatty acids 1,000 mg PO DAILY quetiapine ER 200 mg PO BEDTIME temazepam 15 mg PO BEDTIME PRN Tobacco use date assessed: 02/06/24 Fall risk assessment: 1 Fall in past year Last assessed Fall Risk: 02/06/24 Dental Screening Dental Screen Date: 02/06/24 Did you have a dental visit in the last 12 months?: No Was dental information given to patient?: Patient declined HPI 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 She recently moved up here from [place]. She has history of hypertension currently on metoprolol tartrate 12.5 mg once a day and furosemide 20 mg daily.. She has hyperlipidemia currently on atorvastatin 80 mg once a day as well as [place] 3 fatty acid supplements daily. She has coronary artery disease status post CABG x2 on 11/2018, and cardiac catheterization done 2009, and 2018 both of which came back negative for any blockage. She has history of colon cancer in 2016 , with history of ileostomy , history small-bowel obstruction and narrowing of her esophagus 11/17/2020 with history of esophageal dilatation done. She had a screening colonoscopy done by Dr. 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 She is a former smoker quit in 2012, gets yearly low-dose CTs scan for lung cancer screening. Last screening was done 07/21/2023 which showed presence of fibrotic changes of the lung which is stable and presence of pulmonary nodules measuring up to 3 mm with recommendation to repeat another low-dose chest CT in 12 months. She had a screening mammogram done last 10/04/2022 which showed scattered areas of fibroglandular density, no new focal asymmetry or suspicious grouped microcalcifications, architectural distortion or secondary signs of malignancy, no evidence of malignancy or significant change from prior study. She has been diagnosed to have bipolar 1 disorder and is currently taking citalopram to 40 mg daily, quetiapine ER 200 mg at bedtime, carbamazepine, and temazepam 15 mg at bedtime as needed for insomnia. She currently still sees her psychiatrist, Lou Solano via telehealth. [facility] Medical History (Updated 02/28/24 @ 00:47 by Molly Mcgowan MD) Cervical radiculopathy due to degenerative joint disease of spine Essential hypertension Hyperlipidemia History of radius fracture Former cigarette smoker Degenerative disc disease, cervical CAD (coronary artery disease) Hx of colon cancer, stage III Surgical History History of esophagogastroduodenoscopy (EGD) History of surgery on right wrist History of tonsillectomy History of resection of small bowel History of parotidectomy History of lysis of adhesions Hx of laparoscopic adjustable gastric banding History of exploratory laparotomy Hx laparoscopic cholecystectomy Hx of colonoscopy History of cardiac catheterization History of bunionectomy History of appendectomy History of cervical discectomy History of cervical corpectomy History of fusion of cervical spine Hx of two vessel coronary artery bypass graft Family History Sister Substance use disorder Insulin dependent type 1 diabetes mellitus Mother Colon cancer Breast cancer Coronary artery disease High cholesterol Essential hypertension Social History Patient Tobacco Use Status: Former Tobacco user e-Cigarette/Vaping Use: Never Used Advance Directives: No Advance Directives Information Provided: No Questionnaire PHQ-9 Over the last 2 weeks, how often have you been bothered by any of the following problems? 1. Little interest or pleasure in doing things: not at all 2. Feeling down, depressed, or hopeless: more than half the days 3. Trouble falling or staying asleep, or sleeping too much: more than half the days 4. Feeling tired or having little energy: not at all 5. Poor appetite or overeating: not at all 6. Feeling bad about yourself - or that you are a failure or have let yourself or your family down: not at all 7. Trouble concentrating on things, such as reading the newspaper or watching television: not at all 8. Moving or speaking so slowly that other people could have noticed. Or the opposite - being so fidgety or restless that you have been moving around a lot more than usual: not at all 9. Thoughts that you would be better off or of hurting yourself in some way: not at all Total score: 4 Depression Screening Interpretation: Positive (Currently followed by her psychiatrist, johanne solano via telehealth) Depression Screening Follow-up: Existing condition, In treatment and Community Mental Health Worker F/U Depression Screening Done: Yes 04171 - PHQ-9 Billing: Yes Source: Developed by Drs. Philipp Najera, Nga Sage, Benjamin Berman and colleagues, with an educational ashli from [employer]. Thrive Questionnaire Date Thrive assessed: 02/06/24 I am a: Patient What is your living situation today?: I have a steady place to live Within the past 12 months, did the food you bought not last and you didn't have the money to get more?: Never true Within the past 12 months, did you worry whether your food would run out before you got money to buy more?: Never true Do you have trouble paying for medicines?: No Do you have trouble getting transportation to medical appointments?: No Do you have trouble paying your heating and electricity bill?: No Do you have trouble taking care of your child, family member or friend?: No Do you have trouble with day-to-day activities such as bathing, preparing meals, shopping, managing finances, etc.?: No Are you currently unemployed and looking for a job?: No Are you interested in more education?: No THRIVE Score: 0 AUDIT C Alcohol Use Questionnaire (AUDIT-C) 1. How often do you have a drink containing alcohol?: Never Total Score: 0 REY-7 AMB Questionnaire REY-7 Date REY - 7 assessed: 02/06/24 Feeling nervous, anxious, or on edge: 0 = Not at all Not being able to stop or control worryin = Not at all Worrying too much about different things: 0 = Not at all Trouble relaxin = Not at all Being so restless that it is hard to sit still: 0 = Not at all Becoming easily annoyed or irritable: 0 = Not at all Feeling afraid as if something awful might happen: 0 = Not at all Total REY-7 score (0-4 normal; 5-9 mild; 10-14 moderate; 15-21 severe): 0 Source: Developed by Drs. Philipp Najera, Nga Sage, Benjamin Berman and colleagues, with an educational ashli from [employer]. REY-7 Assessment Billing REY-7 Assessment Tool: REY-7 Assessment 19239 Review of Systems Const Denies fatigue, Denies fever(s), Denies headache(s) and Denies weakness Eyes Denies change in vision ENT Denies dizziness, Denies headache(s), Denies nasal congestion, Denies nasal discharge and Denies sore throat Card Denies chest pain, Denies lightheadedness, Denies palpitations and Denies dyspnea Resp Denies chest congestion, Denies cough, Denies dyspnea and Denies wheezing GI Denies abdominal pain, Denies change in bowel habits and Denies heartburn Denies hematuria, Denies urinary frequency, Denies dysuria and Denies urinary urgency Musc Denies joint swelling and Reports stiffness Skin/Breast Denies breast pain, Denies breast mass, Denies lesions and Reports rash (Recurrent in skin folds) Neuro Denies dizziness, Denies headache(s) and Denies weakness Psych Reports as per HPI Endo Denies fatigue, Denies polydipsia, Denies polyuria and Denies palpitations Yonas/Lymph Denies easy bleeding and Reports easy bruising Aller/Immun Denies seasonal rhinorrhea and Denies wheezing Physical exam (Primary Care) Vital Signs: Last Vital Signs Pulse 99 02/06/24 09:05 BP 102/70 02/06/24 09:05 Pulse Ox 96 02/06/24 09:05 Oxygen Delivery Method Room Air 02/06/24 09:05 BMI result Body Mass Index 38.9 Tobacco/Smoking Status: Tobacco use Status Tobacco use date assessed 02/06/24 02/06/24 09:03 Patient Tobacco Use Status Former Tobacco user 02/06/24 09:03 e-Cigarette/Vaping Use Never Used 02/06/24 09:03 PHQ-9: PHQ-9 Score PHQ-9: Total score 4 02/13/24 03:42 Depression Screening Interpretation: Positive (Currently followed by her psychiatrist, johanne solano via telehealth) Depression Screening Follow-up: Existing condition, In treatment and Community Mental Health Worker F/U Thrive Assessment: Date of Thrive Assessment Date Thrive assessed 02/06/24 02/06/24 09:31 Const General: comfortable, no acute distress and alert Orientation/consciousness: patient oriented x3 HENMT Ears: external ears normal, TM's normal bilaterally and EAC's normal General nose exam: Normal external nose present and No nasal discharge present Mouth: Normal oral and palatal mucosa present, oropharynx normal and moist mucous membranes Eyes General: appearance normal, both eyes and all related structures Neck Neck: Yes full ROM, Yes no lymphadenopathy and Yes supple Resp Effort & Inspection: normal respiratory effort and able to speak in complete sentences Auscultation: clear to auscultation bilaterally Cardio Rate: regular rate Rhythm: regular rhythm Heart sounds: S1 normal heart sound present and S2 normal heart sound present GI Palpation (GI): Soft to palpation, nontender and no masses Auscultation: normal bowel sounds Back/Spine/Pelvis Back: No back tenderness Skin General skin exam: no rashes or lesions noted Neuro General: patient oriented x3, moves all extremities, Normal light touch and pain sensation and no focal motor deficits Cranial nerves: Yes CN's II-XII intact bilaterally Cognition (Neuro): normal cognition Extrem General: Yes full ROM, Yes no joint enlargement, Yes no clubbing, cyanosis or edema and Yes no calf tenderness Psych Appearance: grossly normal and well kempt Mental Status: mental status grossly normal Speech and movement: Normal speech and movement present Affect: normal affect Attitude: cooperative Thought process: Normal thought process present Assessment and Plan Assessment & Plan (1) Hx of colon cancer, stage III: Code(s): Z85.038 - Personal history of other malignant neoplasm of large intestine Plan: Referred to GI for follow-up regarding history of colon cancer (2) CAD (coronary artery disease): Code(s): I25.10 - Atherosclerotic heart disease of [place] coronary artery without angina pectoris Plan: Continue aspirin 81 mg daily, metoprolol tartrate 12.5 mg once a day currently on atorvastatin 80 mg daily, cardiology consult ordered (3) Hyperlipidemia: Code(s): E78.5 - Hyperlipidemia, unspecified Plan: Fasting lipid panel ordered, currently on atorvastatin 80 mg daily (4) Essential hypertension: Code(s): I10 - Essential (primary) hypertension Plan: Blood pressure at goal of less than 130/80. Continue with current medication. Reinforced importance of following a low sodium diet, getting regular exercise, and lowering stress levels. (5) Cervical radiculopathy due to degenerative joint disease of spine: Code(s): M47.22 - Other spondylosis with radiculopathy, cervical region Plan: Anterior cervical diskectomy and fusion C6-C7, cage and plate reconstruction, performed by Dr. Robbie Harrison at [facility] 01/11/2014, referral to neuro spine surgery ordered for further evaluation and management of ongoing cervical neck pain (6) Hx of two vessel coronary artery bypass graft: Code(s): Z95.1 - Presence of aortocoronary bypass graft (7) Screening for lung cancer: Code(s): Z12.2 - Encounter for screening for malignant neoplasm of respiratory organs Plan: Referral to thoracic surgery lung cancer screening Orders: Orders MM tomosynthesis screening BI 02/06/24 Z12.31 - Encounter for screening mammogram for malignant neoplasm of breast, Z87.81 - Personal history of (healed) traumatic fracture, Z78.0 - Asymptomatic menopausal state Comprehensive [place]. Panel Fast 02/09/24 E78.5 - Hyperlipidemia, unspecified, I25.10 - Atherosclerotic heart disease of [place] coronary artery without angina pectoris, Z95.1 - Presence of aortocoronary bypass graft, I10 - Essential (primary) hypertension Vitamin D 25-OH Total 02/09/24 E78.5 - Hyperlipidemia, unspecified, I25.10 - Atherosclerotic heart disease of [place] coronary artery without angina pectoris, Z95.1 - Presence of aortocoronary bypass graft, I10 - Essential (primary) hypertension XR DEXA axial skeleton 02/06/24 Z12.31 - Encounter for screening mammogram for malignant neoplasm of breast, Z87.81 - Personal history of (healed) traumatic fracture, Z78.0 - Asymptomatic menopausal state Lipid Panel 02/09/24 E78.5 - Hyperlipidemia, unspecified, I25.10 - Atherosclerotic heart disease of [place] coronary artery without angina pectoris, Z95.1 - Presence of aortocoronary bypass graft, I10 - Essential (primary) hypertension Complete Blood Count Auto Diff 02/09/24 E78.5 - Hyperlipidemia, unspecified, I25.10 - Atherosclerotic heart disease of [place] coronary artery without angina pectoris, Z95.1 - Presence of aortocoronary bypass graft, I10 - Essential (primary) hypertension Referrals Thoracic Surgery Referral Z12.2 - Encounter for screening for malignant neoplasm of respiratory organs Gastroenterology Referral Z85.038 - Personal history of other malignant neoplasm of large intestine, Z87.891 - Personal history of nicotine dependence Cardiology Referral Z95.1 - Presence of aortocoronary bypass graft, I25.10 - Atherosclerotic heart disease of [place] coronary artery without angina pectoris Neuro Spine Referral M47.22 - Other spondylosis with radiculopathy, cervical region, Z98.1 - Arthrodesis status Medications: New nystatin 1 appl topical DAILY ammonium lactate 12% 1 appl topical BID Coding Level of Care Code New Pt Level 4 (86921) Diagnoses Hx of colon cancer, stage III Z85.038 CAD (coronary artery disease) I25.10 Hyperlipidemia E78.5 Essential hypertension I10 Cervical radiculopathy due to degenerative joint disease of spine M47.22 Hx of two vessel coronary artery bypass graft Z95.1 Screening for lung cancer Z12.2 Additional Codes REY-7 Assessment Billing - REY-7 Assessment Tool: REY-7 Assessment 70704 ([id number])
[2024-02-06 09:05] VITALS: BP 102/70; PULSE 99; O2SAT 96; BMI 38.9
== END 2024-02-06 10:33 | disposition home or self-care (01) ==
PROVIDERS: PCP Nurse Practitioner Family; Visit Provider Internal Medicine
DX: Z85.038 Personal history of other malignant neoplasm of large intestine (principal); I25.10 Atherosclerotic heart disease of native coronary artery without angina pectoris; E78.5 Hyperlipidemia, unspecified; I10 Essential (primary) hypertension; M47.22 Other spondylosis with radiculopathy, cervical region; Z95.1 Presence of aortocoronary bypass graft; Z12.2 Encounter for screening for malignant neoplasm of respiratory organs
CPT/HCPCS: 99204

== ENCOUNTER 2024-02-09 08:45 | Outpatient (REF) | payer MEDICARE, SELFPAY ==
[2024-02-09 10:12] LABS: MANUAL DIFF FLAG NO
[2024-02-09 10:30] LABS: Basophils Percent Auto 0.8 % (0-2); Eosinophils Absolute Auto 0.2 X10*3/uL (0.0-0.4); Eosinophils Percent Auto 5.3 % (0-4); Hematocrit 35.6 % (37.0-47.0); Hemoglobin 12.3 g/dl (12.0-16.0); Imm Gran Abs Auto 0.01 X10*3/uL (0.00-0.03); Imm Gran Pct Auto 0.3 % (0.0-0.4); Lymphocytes Absolute Auto 0.6 X10*3/uL (1.2-4.9); Lymphocytes Percent Auto 16.7 % (20-40); Mean Corpuscular HGB Conc 34.6 g/dl (31.0-35.0); Mean Corpuscular Hemoglobin 29.8 pg (27.0-33.0); Mean Corpuscular Volume 86.2 fL (80.0-98.0); Mean Platelet Volume 11.1 fL (9.4-12.3); Monocytes Absolute Auto 0.5 X10*3/uL (0.1-1.2); Monocytes Percent Auto 13.1 % (2-11); Neutrophils Absolute Auto 2.3 x10*3/uL (2.0-8.3); Neutrophils Percent Auto 63.8 % (45-73); Platelet Count 119 X10*3/uL (160-400); Red Blood Count 4.13 X10*6/uL (4.20-5.50); Red Cell Distribution Width 13.3 % (11.0-16.0); White Blood Count 3.6 X10*3/uL (4.8-10.8)
[2024-02-09 11:21] LABS: Alanine Aminotransferase 27 U/L (0-31); Albumin Level 3.3 g/dL (3.5-5.0); Alkaline Phosphatase 189 U/L (39-117); Anion Gap 13 (12-20); Aspartate Amino Transferase 67 U/L (5-31); Blood Urea Nitrogen 8 mg/dL (9-16); Calcium 8.7 mg/dL (8.4-10.2); Carbon Dioxide 22 mmol/L (22-29); Chloride 105 mmol/L (96-108); Cholesterol 130 mg/dL (<200); Estimated Glomerular Filt Rate > 60; Glucose Fasting 97 mg/dL (60-99); HDL Cholesterol 50 mg/dL (>40); LDL Cholesterol Calculated 61 mg/dL (<100); Potassium 3.7 mmol/L (3.3-5.1); Sodium 136 mmol/L (135-145); Total Protein 6.9 g/dL (6.5-8.0); Triglycerides 96 mg/dL (<150)
[2024-02-09 11:26] LABS: Vitamin D 25-OH Total 33.1 ng/mL (>30)
== END 2024-02-09 08:46 | disposition home or self-care (01) ==
LOC: HO.HMGCLDS 08:45
PROVIDERS: PCP Internal Medicine; Visit Provider Internal Medicine
DX: E78.5 Hyperlipidemia, unspecified (principal); I25.10 Atherosclerotic heart disease of native coronary artery without angina pectoris; I10 Essential (primary) hypertension; Z95.1 Presence of aortocoronary bypass graft
CPT/HCPCS: 36415; 80053; 80061; 82306; 85025

== ENCOUNTER 2024-02-17 09:06 | Outpatient (AMB) | payer MEDICARE, SELFPAY ==
--- NOTE | 2024-02-17 09:20 | HO.SPINEOV ---
Intake Intake Visit Reasons: cervical radiculopathy Intake Note: Ms. To is here today c/o neck pain. 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 She is a very nice 68-year-old female who underwent anterior cervical fusion in 2013 in [facility]. She had anterior fusion from C4-C7. She tells me that the diagnosis at the time was suspected myelopathy, she had weakness and numbness in her hands and arms and was told she had spinal cord compression. At that time she underwent the surgery, was placed in a collar, had an uneventful recovery and actually did quite well and improved her symptoms dramatically. She was doing well until about August of last year when she started to notice increased in her neck pain. Specifically the left suboccipital area, and midline cervical neck pain. She started taking Tylenol to help with that and it did alleviate the pain to some degree. Over time the symptoms progressed to feelings of tingling in her hands with feelings of weakness in her right arm. She has also had balance issues and has had multiple falls. She was sent here today for evaluation in the setting of her history of neck surgery and cervical CT showing adjacent segment disease around her previous surgical site. PMH: She has fairly extensive medical history, she is history of coronary disease, she had what sounds like a myocardial infarction in 2019 and underwent double bypass surgery. She recovered from that uneventful and had been following up with her equestrian trainer in [place], otherwise doing stable. 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 She has a history of colon cancer in 2016, she had a colectomy, subsequently underwent chemotherapy and then had a reversal of her colostomy. She did get peripheral neuropathy after the chemo. History of parotidectomy, history of diverticulitis, history of bipolar disorder, COPD. She uses nebulizers twice a day. History of GERD, hypertension. Denies any history of bleeding disorders, blood clots, kidney issues. Social hx: She was a smoker for 30 years but quit when she had her heart attack, she has not drink, use alcohol or any recreational drugs Medications: Tylenol, albuterol, baby aspirin, Plavix, atorvastatin, Tegretol ( for mood stabilization), citalopram, cyclobenzaprine, Pepcid, Lasix, Seroquel, temazepam, omega-3 fatty acids, nystatin, multivitamin Allergies: None Physical exam: No acute distress, patient will stand up on her own with the help of a walker but is unsteady, needing assistance to walk to the examining table. She is able to stand up slowly on the examining table on her own. She has weakness of both of her hands which I would rate as 4-5. She has some mild weakness of her deltoids as well but I am not sure if this is pain related. The rest of the muscle groups of the upper extremities are normal strength. She has weakness of bilateral iliopsoas which I would rate as 4-5 as well. Distal lower extremity strength is full. She is diffusely hyperreflexic with Froilan sign on her left hand as well as clonus in both of her ankles. Imaging review: Patient has a cervical CT at [facility] in December showing extensive anterior fusion from C4-C7. There is adjacent disc break down the C3-4 as well the C7-T1 areas. They are limitations as to what I can tell about the spinal canal because of the CT scan. Impression: 60-year-old female with C4-C7 anterior cervical fusion in 2013 for which she did very well after the surgery but sounds like she is developing adjacent segment disease with posterior neck pain, balance issues, tingling of her hands with signs of myelopathy on her examination including weakness of her hands, iliopsoas and hyperreflexia. I will obtain an urgent cervical MRI so we can evaluate this a little more closely determine if she needs any more surgery. Thank you for allowing us to care for your patient. The total time spent with this visit with this patient was 45 minutes reviewing history, physical exam, cervical CT imaging review, and implementation of treatment plan or further diagnostic testing Thuan Thomas MD,PhD [facility] Orders: Orders MR cervical spine wo con Today G95.9 - Disease of spinal cord, unspecified Coding Level of Care Code New Pt Level 4 (82607) Diagnoses Cervical myelopathy G95.9
== END 2024-02-17 09:56 | disposition home or self-care (01) ==
PROVIDERS: PCP Internal Medicine; Referring Provider Internal Medicine; Visit Provider Physician Assistant
DX: G95.9 Disease of spinal cord, unspecified (principal)
CPT/HCPCS: 99204

== ENCOUNTER → 2024-02-17 09:06 | Outpatient (BNVA) | payer MEDICARE, SELFPAY | PROVIDERS: PCP Internal Medicine; Visit Provider Physician Assistant | DX: G95.9 Disease of spinal cord, unspecified (principal) | CPT/HCPCS: 99202 ==

== ENCOUNTER 2024-02-25 10:46 | Outpatient (REF) | payer MEDICARE, SELFPAY ==
--- NOTE | ~2024-02-25 | MR_ITS ---
MR CERVICAL SPINE WITHOUT CONTRAST CLINICAL INFORMATION: Disease of the spinal cord. Weakness and numbness of the arms. COMPARISON: Cervical spine CT 03/09/2024. TECHNIQUE: MRI of the cervical spine was obtained using routine sequences without contrast. FINDINGS: There are redemonstrated postoperative changes following ACDF at the C4-C7 levels and probable corpectomy at C5-C6. Surgical hardware is not diagnostically assessed on MRI. There is mild degenerative anterior subluxation of C7 on T1 which is unchanged. Cervical alignment is otherwise preserved. The craniocervical junction is unremarkable. Cervical arterial flow voids are maintained. No significant extra spinal soft tissue findings. No cord signal changes accounting for artifact. C2-C3: Uncovertebral joint spurring and advanced facet arthropathy result in moderate to severe bilateral foraminal stenosis. No central canal stenosis. Posterior disc contour normal. C3-C4: Left-sided uncovertebral joint spurring and facet arthropathy result in moderate to severe left-sided foraminal stenosis. No central canal and no right foraminal stenosis. C4-C5: Right paracentral osteophytic ridging mildly narrows the central canal. Uncovertebral joint spurring and facet arthropathy result in mild bilateral foraminal encroachment. C5-C6: Right paracentral osteophytic ridging mildly narrows the central canal. Uncovertebral joint spurring and facet arthropathy result in mild right-sided foraminal encroachment. C6-C7: Osteophytic ridging mildly narrows the central canal. Uncovertebral joint spurring and facet arthropathy result in mild to moderate right-sided foraminal encroachment. C7-T1: Mild degenerative anterior subluxation. Uncovered disc osteophyte and ligamentum flavum thickening mildly narrow the central canal. Uncovertebral joint spurring and facet arthropathy result in mild bilateral foraminal encroachment. MR/MR cervical spine wo con IMPRESSION: There are postoperative changes following ACDF at the C4-C7 levels and probable C5-C6 corpectomy. Surgical hardware is not diagnostically assessed on MRI. Spondylitic changes result in moderate to severe bilateral C2-C3 and moderate to severe left C3-C4 foraminal stenosis. There is no severe central canal stenosis within the cervical spine and there are no definite cord signal changes accounting for artifact.
== END 2024-02-25 10:47 | disposition home or self-care (01) ==
LOC: HO.MRI 10:46
PROVIDERS: PCP Internal Medicine; Visit Provider Physician Assistant
DX: Z13.89 Encounter for screening for other disorder (principal)
CPT/HCPCS: 72141

== ENCOUNTER 2024-02-27 21:43 | Inpatient (IN) | payer MEDICARE, SELFPAY ==
--- NOTE | ~2024-02-27 | CT_ITS ---
EXAMINATION: CT ABDOMEN AND PELVIS WITHOUT CONTRAST CLINICAL INFORMATION: Question small bowel obstruction COMPARISON: None available. TECHNIQUE: Multidetector volumetric imaging was performed from the superior aspect of the liver through the pubic symphysis. Sagittal and coronal reformatted images were obtained on the technologist's workstation. This CT examination was performed using dose optimization techniques as appropriate, variously including the following: *Automated exposure control *Adjustment of mA and/or kV according to patient size (this includes techniques or standardized protocols for targeted exams where dose is matched to indication/reason for exam; i.e. extremities or head) *Use of iterative reconstruction technique DLP: 733 mGy-cm FINDINGS: LUNG BASES: The visualized lung bases are grossly unremarkable. LIVER, GALLBLADDER, AND BILIARY TREE: The liver is normal in size, shape, and attenuation. No focal hepatic lesion or biliary ductal dilatation is identified on this noncontrast exam. Patient is status post cholecystectomy. PANCREAS: Moderately atrophic. SPLEEN: Borderline enlarged. ADRENAL GLANDS: Unremarkable. KIDNEYS AND URETERS: No hydronephrosis or obstructing calculus bilaterally. BLADDER: Unremarkable. GASTROINTESTINAL TRACT: Gastric band is present across the proximal stomach. The stomach distal to the band is distended with gas and fluid. There are multiple dilated gas and fluid-filled loops of proximal to mid small bowel, as well as a prominent fecalized segment of small bowel in the lower abdomen at the location of suture lines. The distalmost small bowel, in contrast, appears collapsed. Overall bowel gas pattern is suspicious for a small bowel obstruction. The colon is mostly collapsed, which limits evaluation for wall thickening. There is mild colonic diverticulosis. There is diffuse mesenteric stranding. Trace free fluid is present. No definite free air is seen. ABDOMINAL WALL: Gastric band port in the anterior subcutaneous abdominal wall. LYMPH NODES: No lymphadenopathy is seen, though assessment is limited in the absence of intravenous contrast. VASCULAR: Scattered atherosclerotic calcifications. PELVIC VISCERA: Unremarkable. OSSEOUS STRUCTURES: Degenerative changes are noted in the spine. CT/CT abdomen pelvis wo IV con IMPRESSION: 1. Multiple dilated loops of proximal to mid small bowel, suspicious for a small bowel obstruction. Transition point is suspected to be in the vicinity of a suture line in the lower abdomen. 2. Gastric band across the proximal stomach. The stomach distal to the band is distended with gas and fluid. 3. Diffuse mesenteric stranding and trace free fluid. 4. Limited evaluation for wall thickening throughout much of the colon due to luminal collapse; the possibility of a colitis would be difficult to exclude.
--- NOTE | ~2024-02-27 | XR_ITS ---
EXAMINATION: XR CHEST CLINICAL INFORMATION: Post NG tube COMPARISON: None available. TECHNIQUE: Frontal view of the chest was obtained. FINDINGS: Enteric tube tip lies in the region of the gastric antrum. Sternal wires are present. Gastric band is noted. There is slight elevation of the left hemidiaphragm. No focal consolidation is seen. No evidence of pneumothorax or significant pleural effusion. Slight prominence of the perihilar interstitium. Cardiac size is within normal limits. There is dense mitral annular calcification. No acute osseous findings are seen. XR/XR chest 1V IMPRESSION: 1. Enteric tube tip in the region of the gastric antrum. 2. Slight prominence of the perihilar interstitium, which could reflect airways disease.
[2024-02-27 22:00] VITALS: BP 128/78; BP 130/78; PULSE 78; PULSE 94; RESP 20; TEMP 36.3; O2SAT 98; BMI 36.6
--- NOTE | 2024-02-27 22:07 | ECG_ITS ---
Test Reason : CHEST PAIN Blood Pressure : / mmHG Vent. Rate : 091 BPM Atrial Rate : 000 BPM P-R Int : 000 ms QRS Dur : 114 ms QT Int : 396 ms P-R-T Axes : 000 -78 034 degrees QTc Int : 487 ms Atrial fibrillation Left anterior fascicular block Cannot rule out Anterior infarct , age undetermined Abnormal ECG No previous ECGs available Referred By: Generic ED Physician Electronically Signed By:JACEK JOYA
--- NOTE | 2024-02-27 22:15 | ED_ITS ---
HPI - Abdominal Pain General Chief Complaint: Abdominal Pain Stated Complaint: Abdominal pain, back pain, NVD hx of bowel obst Time Seen by Provider: 02/27/24 22:14 Source: patient Mode of arrival: ambulatory Limitations: no limitations History of Present Illness HPI narrative: Patient's history of colon cancer status post resection in 2016 since then she had multiple times bowel obstruction at least 5 times today since 1599 patient has been diffuse abdominal pain multiple vomiting similar to that in the past when she had bowel obstruction , patient had normal bowel movement at 15:00 last bowel obstruction was 2020 no fever no chills no chest pain or palpitation Related Data Home Medications ?Medication ?Instructions ?Recorded ?Confirmed acetaminophen 325 mg tablet 650 mg PO Q8H PRN ARTHRITIS PAIN 01/09/24 02/06/24 albuterol sulfate 90 mcg/actuation 1 inh inhalation BID PRN Shortness 01/09/24 02/06/24 aerosol inhaler Of Breath Or Wheezing aspirin 81 mg tablet,delayed 81 mg PO DAILY 01/09/24 02/06/24 release carbamazepine 200 mg tablet 200 mg PO TID 01/09/24 02/06/24 citalopram 40 mg tablet 40 mg PO DAILY 01/09/24 02/06/24 clopidogrel 75 mg tablet (Plavix) 75 mg PO DAILY 01/09/24 02/06/24 cyclobenzaprine 10 mg tablet 10 mg PO BEDTIME PRN Headache 01/09/24 02/06/24 furosemide 20 mg tablet 20 mg PO DAILY 01/09/24 02/06/24 lactobacillus combination no.4 3 3,000 mmu cells PO DAILY 01/09/24 02/06/24 billion cell capsule (Probiotic) metoprolol tartrate 25 mg tablet 12.5 mg PO DAILY 01/09/24 02/06/24 multivitamin with minerals-folic 1 tab PO DAILY 01/09/24 02/06/24 acid 0.4 mg tablet omega-3 fatty acids 1,000 mg PO DAILY 01/09/24 02/06/24 quetiapine 200 mg tablet,extended 200 mg PO BEDTIME 01/09/24 02/06/24 release 24 hr ammonium lactate 12 % topical cream 1 appl topical BID 02/06/24 02/06/24 nystatin 100,000 unit/gram topical 1 appl topical DAILY 02/06/24 02/06/24 powder temazepam 30 mg capsule 15 mg PO BEDTIME PRN Sleep 02/06/24 02/06/24 Previous Rx's ?Medication ?Instructions ?Recorded atorvastatin 80 mg tablet 80 mg PO DAILY #90 tabs 02/14/24 ergocalciferol (vitamin D2) 1,250 1,250 mcg PO LEYVA #13 caps 02/14/24 mcg (50,000 unit) capsule famotidine 40 mg tablet 40 mg PO BEDTIME #90 tabs 02/14/24 Allergies Allergy/AdvReac Type Severity Reaction Status Date / Time No Known Allergies Allergy Verified 02/27/24 22:06 Review of Systems Review of Systems Yes all other systems are reviewed and are negative [facility] Past Medical History Medical History (Updated 02/28/24 @ 06:44 by Jose Fam MD) Cervical radiculopathy due to degenerative joint disease of spine Essential hypertension Hyperlipidemia History of radius fracture Former cigarette smoker Degenerative disc disease, cervical CAD (coronary artery disease) Hx of colon cancer, stage III Surgical History History of esophagogastroduodenoscopy (EGD) History of surgery on right wrist History of tonsillectomy History of resection of small bowel History of parotidectomy History of lysis of adhesions Hx of laparoscopic adjustable gastric banding History of exploratory laparotomy Hx laparoscopic cholecystectomy Hx of colonoscopy History of cardiac catheterization History of bunionectomy History of appendectomy History of cervical discectomy History of cervical corpectomy History of fusion of cervical spine Hx of two vessel coronary artery bypass graft Family History Family History Sister Substance use disorder Insulin dependent type 1 diabetes mellitus Mother Colon cancer Breast cancer Coronary artery disease High cholesterol Essential hypertension Social History Social History Patient Tobacco Use Status: Former Tobacco user e-Cigarette/Vaping Use: Never Used Advance Directives: No Advance Directives Information Provided: No Nutrition Risks: Acute nausea or vomiting x1 week and Gastrointestinal Malabsorption Physical Exam ED Vital Signs: Vital Signs - 24 hr 02/27/24 22:00 Temperature 97.4 F Pulse Rate 94 Respiratory Rate 20 Blood Pressure 130/78 Pulse Oximetry 98 Oxygen Delivery Method Room Air BMI result Body Mass Index 36.6 Appearance: Alert. Oriented X3. In mild distress. Eyes: No pallor or icterus ENT: Pharynx normal. Oral Mucosa moist Neck: Normal inspection. Neck supple. CVS: Normal heart rate and rhythm. PACs+ Pulses normal. Respiratory: No respiratory distress. Equal air entry bilateral, no wheezing/rales/rhonchi Abdomen: Soft and tenderness in bilateral lower abdominal no rebound tenderness or guard Bowel sounds are sluggish, no mass palpable, no CVA tenderness Skin: Skin warm and dry. Normal skin color. Normal skin turgor. Extremities: No lower extremity edema. No calf tenderness Neuro: Oriented X 3. No motor deficit. Medical Decision Making Medical Decision Making [facility] Narrative: Patient clinically small-bowel obstruction with history of same multiple times NGT was placed which drained about 1200 cc of gastric fluid patient feeling much better CT scan revealed small bowel obstruction with transition point at the surgical site. Will call surgeon for admission Differential Diagnosis Differential Diagnoses: The differential diagnosis associated with the presentation includes Small bowel obstruction/diverticulitis Admission/Observation Consideration of admission/observation: Escalation of care including admission/observation considered Consult Healthcare Provider Management of the patient was discussed with: [place] Surgeon Dr. Regalado Lab Data [facility] Lab Attestation statement: I reviewed the patient's lab results. 02/27/24 23:05 02/27/24 23:05 Labs: Lab Results 02/27/24 Range/Units 23:05 WBC 7.9 (4.8-10.8) X10*3/uL RBC 4.23 (4.20-5.50) X10*6/uL Hgb 12.8 (12.0-16.0) g/dl Hct 36.9 L (37.0-47.0) % MCV 87.2 (80.0-98.0) fL MCH 30.3 (27.0-33.0) pg MCHC 34.7 (31.0-35.0) g/dl RDW 13.4 (11.0-16.0) % Plt Count 143 L (160-400) X10*3/uL MPV 10.3 (9.4-12.3) fL Immature Gran % (Auto) 0.3 (0.0-0.4) % Neut % (Auto) 80.9 H (45-73) % Lymph % (Auto) 7.0 L (20-40) % [place] % (Auto) 10.0 (2-11) % Eos % (Auto) 1.3 (0-4) % Baso % (Auto) 0.5 (0-2) % Lymph # (Auto) 0.6 L (1.2-4.9) X10*3/uL [place] # (Auto) 0.8 (0.1-1.2) X10*3/uL Eos # (Auto) 0.1 (0.0-0.4) X10*3/uL Baso # (Auto) 0.0 (0.0-0.2) X10*3/uL Abs Immat Gran (auto) 0.02 (0.00-0.03) X10*3/uL Absolute Neuts (auto) 6.4 (2.0-8.3) x10*3/uL Absolute Nucleated RBC 0.000 (0.0-0.012) X10*3/uL Nucleated RBC % (auto) 0.0 (0.0-0.2) /100WBC PT 14.5 H (11.1-13.3) SEC INR 1.2 H (0.9-1.1) APTT 35.1 (26.0-36.8) SEC Sodium 133 L (135-145) mmol/L Potassium 4.0 (3.3-5.1) mmol/L Chloride 101 (96-108) mmol/L Carbon Dioxide 22 (22-29) mmol/L Anion Gap 14 (12-20) BUN 11 (9-16) mg/dL Creatinine 0.87 (0.5-1.4) mg/dL Estim Creat Clear Calc 69.9 Estimated GFR > 60 Random Glucose 122 H (60-115) mg/dL Lactic Acid 1.5 (0.5-2.0) mmol/L Calcium 9.1 (8.4-10.2) mg/dL Magnesium 1.5 L (1.6-2.6) mg/dL Total Bilirubin 0.8 (0.0-1.0) mg/dL AST 40 H (5-31) U/L ALT 21 (0-31) U/L Alkaline Phosphatase 203 H (39-117) U/L Troponin I High Sens 4.9 (<3.5-17.0) ng/L Total Protein 7.5 (6.5-8.0) g/dL Albumin 3.6 (3.5-5.0) g/dL Independent Interpretation I performed an independent interpretation of an: CT Scan Radiology Impression Discussion of test interpretation with radiology: I have reviewed the radiologist's reading. Radiologist Impression: [address] [address] [address] Scan Report Signed Patient: Deidre To MR#: [id number] : 1955 Acct:[id number] Age/Sex: 68 / F ADM Date: 02/27/24 Loc: HO.ED Attending Dr: Ordering Physician: Jose Fam MD Date of Service: 02/27/24 Procedure(s): CT abdomen pelvis wo IV con Accession Number(s): [id number] cc: Molly Mcgowan MD; Jose Fam MD~ EXAMINATION: CT ABDOMEN AND PELVIS WITHOUT CONTRAST CLINICAL INFORMATION: Question small bowel obstruction COMPARISON: None available. TECHNIQUE: Multidetector volumetric imaging was performed from the superior aspect of the liver through the pubic symphysis. Sagittal and coronal reformatted images were obtained on the technologist's workstation. This CT examination was performed using dose optimization techniques as appropriate, variously including the following: *Automated exposure control *Adjustment of mA and/or kV according to patient size (this includes techniques or standardized protocols for targeted exams where dose is matched to indication/reason for exam; i.e. extremities or head) *Use of iterative reconstruction technique DLP: 733 mGy-cm FINDINGS: LUNG BASES: The visualized lung bases are grossly unremarkable. LIVER, GALLBLADDER, AND BILIARY TREE: The liver is normal in size, shape, and attenuation. No focal hepatic lesion or biliary ductal dilatation is identified on this noncontrast exam. Patient is status post cholecystectomy. PANCREAS: Moderately atrophic. SPLEEN: Borderline enlarged. ADRENAL GLANDS: Unremarkable. KIDNEYS AND URETERS: No hydronephrosis or obstructing calculus bilaterally. BLADDER: Unremarkable. GASTROINTESTINAL TRACT: Gastric band is present across the proximal stomach. The stomach distal to the band is distended with gas and fluid. There are multiple dilated gas and fluid-filled loops of proximal to mid small bowel, as well as a prominent fecalized segment of small bowel in the lower abdomen at the location of suture lines. The distalmost small bowel, in contrast, appears collapsed. Overall bowel gas pattern is suspicious for a small bowel obstruction. The colon is mostly collapsed, which limits evaluation for wall thickening. There is mild colonic diverticulosis. There is diffuse mesenteric stranding. Trace free fluid is present. No definite free air is seen. ABDOMINAL WALL: Gastric band port in the anterior subcutaneous abdominal wall. LYMPH NODES: No lymphadenopathy is seen, though assessment is limited in the absence of intravenous contrast. VASCULAR: Scattered atherosclerotic calcifications. PELVIC VISCERA: Unremarkable. OSSEOUS STRUCTURES: Degenerative changes are noted in the spine. CT/CT abdomen pelvis wo IV con IMPRESSION: 1. Multiple dilated loops of proximal to mid small bowel, suspicious for a small bowel obstruction. Transition point is suspected to be in the vicinity of a suture line in the lower abdomen. 2. Gastric band across the proximal stomach. The stomach distal to the band is distended with gas and fluid. 3. Diffuse mesenteric stranding and trace free fluid. 4. Limited evaluation for wall thickening throughout much of the colon due to luminal collapse; the possibility of a colitis would be difficult to exclude. Medications Administered Generic Name Dose Route Start Last Admin Trade Name Freq PRN Reason Stop Dose Admin Lactated Ringer's 1,000 mls @ 100 mls/hr 02/28/24 02:30 02/28/24 03:51 Lr IVCONT 100 mls/hr .Q10H LAURA Administration Discontinued Medications Generic Name Dose Route Start Last Admin Trade Name Freq PRN Reason Stop Dose Admin Sodium Chloride 1,000 mls @ 999 mls/hr 02/27/24 22:32 02/28/24 01:46 Ns IV 02/27/24 23:32 Infused .Q1H1M ONE Infusion Lidocaine HCl 1 appl 02/28/24 00:41 02/28/24 01:35 Lidocaine Hcl 4 % Mpf W/Madgic 5 Ml Ampul TOPICAL 02/28/24 00:42 1 appl ONCE ONE Administration Protocol Morphine Sulfate 4 mg 02/27/24 22:32 02/27/24 23:37 Morphine Sulfate 4 Mg/Ml Cartridge IVPUSH 02/27/24 22:33 4 mg ONCE ONE Administration Protocol Ondansetron HCl 4 mg 02/27/24 22:32 02/27/24 23:37 Ondansetron Hcl 4 Mg/2 Ml Vial IVPUSH 02/27/24 22:33 4 mg ONCE ONE Administration Discharge Plan Discharge Clinical Impression: Small bowel obstruction Patient Disposition: Admitted As Inpatient
[2024-02-27 23:12] LABS: MANUAL DIFF FLAG NO
[2024-02-27 23:13] LABS: Basophils Percent Auto 0.5 % (0-2); Eosinophils Absolute Auto 0.1 X10*3/uL (0.0-0.4); Eosinophils Percent Auto 1.3 % (0-4); Hematocrit 36.9 % (37.0-47.0); Hemoglobin 12.8 g/dl (12.0-16.0); Imm Gran Abs Auto 0.02 X10*3/uL (0.00-0.03); Imm Gran Pct Auto 0.3 % (0.0-0.4); Lymphocytes Absolute Auto 0.6 X10*3/uL (1.2-4.9); Mean Corpuscular HGB Conc 34.7 g/dl (31.0-35.0); Mean Corpuscular Hemoglobin 30.3 pg (27.0-33.0); Mean Corpuscular Volume 87.2 fL (80.0-98.0); Mean Platelet Volume 10.3 fL (9.4-12.3); Monocytes Absolute Auto 0.8 X10*3/uL (0.1-1.2); Neutrophils Absolute Auto 6.4 x10*3/uL (2.0-8.3); Neutrophils Percent Auto 80.9 % (45-73); Platelet Count 143 X10*3/uL (160-400); Red Blood Count 4.23 X10*6/uL (4.20-5.50); Red Cell Distribution Width 13.4 % (11.0-16.0); White Blood Count 7.9 X10*3/uL (4.8-10.8)
[2024-02-27 23:18] LABS: INTERNATIONAL NORM RATIO 1.2 (0.9-1.1); Prothrombin Time 14.5 SEC (11.1-13.3)
[2024-02-27 23:21] LABS: Lactic Acid 1.5 mmol/L (0.5-2.0); Partial Thromboplastin Time 35.1 SEC (26.0-36.8)
[2024-02-27 23:32] LABS: Troponin-I High Sensitivity 4.9 ng/L (<3.5-17.0)
[2024-02-27] MEDS: ondansetron HCL 4 MG/2 ML VIAL IVPUSH (23:37)
[2024-02-27] MEDS: 0.9 % Sodium Chloride 1,000 ML 999 ML IV (23:37)
[2024-02-27] MEDS: Morphine Sulfate 4 MG/ML CARTRIDGE IVPUSH (23:37)
[2024-02-28 00:41] LABS: Alanine Aminotransferase 21 U/L (0-31); Albumin Level 3.6 g/dL (3.5-5.0); Alkaline Phosphatase 203 U/L (39-117); Anion Gap 14 (12-20); Aspartate Amino Transferase 40 U/L (5-31); Bilirubin Total 0.8 mg/dL (0.0-1.0); Blood Urea Nitrogen 11 mg/dL (9-16); Calcium 9.1 mg/dL (8.4-10.2); Carbon Dioxide 22 mmol/L (22-29); Chloride 101 mmol/L (96-108); Creatinine Clr Calc Pharmacy 69.9; Estimated Glomerular Filt Rate > 60; Glucose Random 122 mg/dL (60-115); Magnesium 1.5 mg/dL (1.6-2.6); Sodium 133 mmol/L (135-145); Total Protein 7.5 g/dL (6.5-8.0)
[2024-02-28] MEDS: Lidocaine HCl 4 % MPF w/MADgic 5 ML AMPUL 1 APPL TOPICAL (01:35)
[2024-02-28] MEDS: Lactated Ringers 1,000 ML 100 ML IVCONT (03:51)
[2024-02-28 06:10] VITALS: BP 131/89; PULSE 100; RESP 12; TEMP 37.1; O2SAT 94
--- NOTE | 2024-02-28 07:00 | CA_ITS ---
Transthoracic Echocardiogram Patient (Last, First, Middle): Deidre To, Gender: Female Date of : 1955 Age: 68 Procedure Date: 02/28/2024 Procedure Type: Transthoracic Echocardiogram Location: S3E Height: 152.4 cm Weight: 92.53 kg BSA: 1.88 m2 Heart Rate: bpm BP: 131 / 89 mmHg Personnel Recruiter: Referring MD: Katie NAZARIO Symptoms: new onset afib Study Quality: Fair ECG Rhythm: Atrial Fibrillation Conclusions: - The left ventricular systolic function is hyperdynamic. The visually estimated ejection fraction is >70%. - There is moderately increased left ventricular wall thickness. - The left atrium is severely dilated. - There is moderate calcification of the aortic valve. There is mild aortic valve stenosis. There is mild aortic valve regurgitation. - There is severe mitral annular calcification. - Mild pulmonary hypertension is present. Findings Left Ventricle Normal left ventricular cavity size. There is moderately increased left ventricular wall thickness. The left ventricular systolic function is hyperdynamic. The visually estimated ejection fraction is >70%. Diastolic function is indeterminate on the basis of available data. Right Ventricle Mildly increased right ventricular cavity size. There is normal right ventricular systolic function. Atria The left atrium is severely dilated. The right atrium is normal in size. Aortic Valve There is moderate calcification of the aortic valve. There is mild aortic valve stenosis. There is mild aortic valve regurgitation. Mitral Valve There is severe mitral annular calcification. There is mild mitral valve regurgitation. There is no mitral valve stenosis. Pulmonic Valve The pulmonic valve is likely normal. Tricuspid Valve Normal tricuspid valve structure. There is mild tricuspid valve regurgitation. Mild pulmonary hypertension is present. Great Vessels The asc aorta is normal in size. Small plaque is seen in the sino tubular ridge. Venous The inferior vena cava is normal in size and collapses greater than 50% with inspiration. Pericardium/Pleural There is no evidence of pericardial effusion. Prior Study Comparison No prior study available for comparison. Measurements 2D Linear Measurements IVSd: 1.40 0.6-0.9/0.6-1.0 cm LVIDd: 3.75 3.9-5.3/4.2-5.9 cm LVIDd Index: 1.99 2.4-3.2/2.2-3.1 cm/m2 LVIDs: 2.51 2.0-3.6 cm LVPWd: 1.39 0.7-1.1 cm Ao Root: 2.80 2.1-3.5 cm LA Diam: 4.70 2.7-3.8/3.0-4.0 cm LAIDs Index: 2.50 1.5-2.3 cm/m2 LV Mass: 236.07 67-162/88-224 g LV Mass Index: 125.57 43-95/49-115 g/m2 LVOT Diam: 1.90 3.0+(-)1.3 cm 2D Systolic Function EF 4C: 72.20 >55% EF 2C: 60.30 >55% EF BiP: 66.80 >55% Mitral Valve MV VTI: 0.49 MV Pk Aj: 2.20 MV Mn Aj: 1.03 MV Pk Grad: 19.00 MV Mn Grad: 6.00 MV Pk E: 1.21 MV Decel Time: 187.00 E'Lateral: 9.36 E'Medial: 6.85 E/E' Med: 17.70 E/E' Lat: 12.90 PHT: 55.00 MVA PHT: 4.00 MVA Continuity: 2.06 Decel Tensas: 6.47 Aortic Valve AoV Pk Aj: 2.89 AoV Mn Aj: 1.95 AoV VTI: 0.55 AoV Pk Grad: 33.00 Aov Mn Grad: 19.00 FLETCHER Cont.VTI: 1.85 AI Pk Aj: 4.23 AI Tensas: 3.47 LVOT LVOT Pk Aj: 1.75 LVOT Mn Aj: 1.22 LVOT VTI: 0.36 LVOT Pk Grad: 12.00 LVOT Mn Grad: 7.00 LVOT Diam: 1.90 LVOT Area: 2.84 Diastolic Function MV Pk E: 1.21 E'Medial: 6.85 E/E' Med: 17.70 E' Laterial: 9.36 E/E' Lat: 12.90 Right Ventricle TAPSE (mm): 21.00 TVS' Aj: 13.00 Tricuspid Valve TR Pk Aj: 3.17 TR Pk Grad: 40.00 RA Press: 8.00 RVSP: 48.00 Great Vessels Aorta Ao Root-2D: 2.80 2.0-3.7 cm Ao Asc: 3.10 2.1-3.4 cm Pulmonary Valve PV Pk Aj: 1.22 Peak PV Grad: 6.00 Updated in Other Vendor System with Status of Final Vijay Han MD electronically signed on 02/28/2024 4:34:40 PM with status of Final
--- NOTE | 2024-02-28 07:26 | ECG_ITS ---
Test Reason : ARRYTHMIA Blood Pressure : / mmHG Vent. Rate : 102 BPM Atrial Rate : 000 BPM P-R Int : 000 ms QRS Dur : 120 ms QT Int : 392 ms P-R-T Axes : 000 -82 036 degrees QTc Int : 510 ms Atrial fibrillation with rapid ventricular response with premature ventricular or aberrantly conducted complexes Left anterior fascicular block Abnormal ECG When compared with ECG of 27-FEB-2024 22:18, No significant change was found Referred By: Jose Fam Electronically Signed By:JACEK JOYA
--- NOTE | 2024-02-28 08:05 | P.HPGS_ITS ---
History of Present Illness History of Present Illness Date of Service: 02/28/24 Chief complaint: Small bowel obstruction Narrative: Deidre To is a 68 year old female multiple previous abdominal surgeries, admitted this morning for abdominal pain and vomiting. She says that this star tania last night. She describes the pain as diffuse. She used to live in [place] but has moved here to be closer to her son who now takes care of her. She says that she has had 5 admissions in the hospital for small bowel obstruction since her surgeries. She says that she has NG tube each time this normally resolves after a few days She has a history of sigmoid resection for colon cancer in 2017 done in [place]. She says she had chemotherapy after that. She had an ileostomy at that time as well and she had this reversed eventually. She has a history of cholecystectomy. She had a gastric band placed in the this past She has a history of coronary disease and had 2 vessel bypass 5 years ago. She currently states that her abdominal pain is much improved. She had an NG tube placed early this morning with large amounts of drainage on initial placement. She says that she has had problems with memory recently . She does not recall when her last flatus or BM was. Review of Systems Constitutional: Constitutional: Denies chills and Denies fever(s) Cardiovascular: Cardiovascular: Denies chest pain, Denies dyspnea and Denies dyspnea on exertion Respiratory: Respiratory: Denies cough, Denies dyspnea and Denies dyspnea on exertion Gastrointestinal: Gastrointestinal: Denies hematochezia and Denies change in bowel habits Genitourinary: Genitourinary: Denies hematuria Musculoskeletal: Musculoskeletal: Denies back pain and Denies limited range of motion Neurologic: Denies focal weakness and Denies convulsions Psychiatric: Psychiatric: Denies depression and Denies mood swings [facility] Past Medical History Medical History Atrial fibrillation Cervical radiculopathy due to degenerative joint disease of spine Essential hypertension Hyperlipidemia History of radius fracture Former cigarette smoker Degenerative disc disease, cervical CAD (coronary artery disease) Hx of colon cancer, stage III Family History Family History Sister Substance use disorder Insulin dependent type 1 diabetes mellitus Mother Colon cancer Breast cancer Coronary artery disease High cholesterol Essential hypertension Surgical History Surgical History History of esophagogastroduodenoscopy (EGD) History of surgery on right wrist History of tonsillectomy History of resection of small bowel History of parotidectomy History of lysis of adhesions Hx of laparoscopic adjustable gastric banding History of exploratory laparotomy Hx laparoscopic cholecystectomy Hx of colonoscopy History of cardiac catheterization History of bunionectomy History of appendectomy History of cervical discectomy History of cervical corpectomy History of fusion of cervical spine Hx of two vessel coronary artery bypass graft Social History Social History Patient Tobacco Use Status: Former Tobacco user e-Cigarette/Vaping Use: Never Used Advance Directives: No Advance Directives Information Provided: No Nutrition Risks: Acute nausea or vomiting x1 week and Gastrointestinal Malabsorption Meds Allergies Allergy/AdvReac Type Severity Reaction Status Date / Time No Known Allergies Allergy Verified 02/27/24 22:06 Active Medications: Current Medications Heparin Sodium (Porcine) (Heparin Sodium,Porcine 5,000 Unit/Ml Vial) 5,000 unit SUBCUT Q8H [facility] Lactated Ringer's (Lr) 1,000 mls @ 100 mls/hr IVCONT .Q10H [facility] Last Admin: 02/28/24 03:51 Dose: 100 mls/hr Morphine Sulfate (Morphine Sulfate 4 Mg/Ml Cartridge) 3 mg IVPUSH Q3H PRN; Protocol PRN Reason: Pain, Severe (Pain Scale 7-10) Ondansetron HCl (Ondansetron Hcl 4 Mg/2 Ml Vial) 4 mg IVPUSH Q6H PRN PRN Reason: nausea Sodium Chloride (0.9 % Sodium Chloride Flush 3 Ml Syringe) 3 ml IVFLUSH QSHIFT [facility] Last Admin: 02/28/24 07:48 Dose: Not Given Home Medications ?Medication ?Instructions ?Recorded ?Confirmed ?Last Taken ?Type acetaminophen 325 mg tablet 650 mg PO Q8H PRN ARTHRITIS PAIN 01/09/24 02/06/24 Unknown History albuterol sulfate 90 mcg/actuation 1 inh inhalation BID PRN Shortness 01/09/24 02/06/24 Unknown History aerosol inhaler Of Breath Or Wheezing aspirin 81 mg tablet,delayed 81 mg PO DAILY 01/09/24 02/06/24 Unknown History release carbamazepine 200 mg tablet 200 mg PO TID 01/09/24 02/06/24 Unknown History citalopram 40 mg tablet 40 mg PO DAILY 01/09/24 02/06/24 Unknown History clopidogrel 75 mg tablet (Plavix) 75 mg PO DAILY 01/09/24 02/06/24 Unknown History cyclobenzaprine 10 mg tablet 10 mg PO BEDTIME PRN Headache 01/09/24 02/06/24 Unknown History furosemide 20 mg tablet 20 mg PO DAILY 01/09/24 02/06/24 Unknown History lactobacillus combination no.4 3 3,000 mmu cells PO DAILY 01/09/24 02/06/24 Unknown History billion cell capsule (Probiotic) metoprolol tartrate 25 mg tablet 12.5 mg PO DAILY 01/09/24 02/06/24 Unknown History multivitamin with minerals-folic 1 tab PO DAILY 01/09/24 02/06/24 Unknown History acid 0.4 mg tablet omega-3 fatty acids 1,000 mg PO DAILY 01/09/24 02/06/24 Unknown History quetiapine 200 mg tablet,extended 200 mg PO BEDTIME 01/09/24 02/06/24 Unknown History release 24 hr ammonium lactate 12 % topical cream 1 appl topical BID 02/06/24 02/06/24 Unknown History nystatin 100,000 unit/gram topical 1 appl topical DAILY 02/06/24 02/06/24 Unknown History powder temazepam 30 mg capsule 15 mg PO BEDTIME PRN Sleep 02/06/24 02/06/24 Unknown History Physical Exam Vital Signs: Vital Signs: Last Vital Signs Temp 98.7 F 02/28/24 06:10 Pulse 100 02/28/24 06:10 Resp 12 02/28/24 06:10 BP 131/89 02/28/24 06:10 Pulse Ox 94 02/28/24 06:10 O2 Del Method Room Air 02/28/24 06:10 BMI result Body Mass Index 36.6 Const: General: comfortable and no acute distress Orientation/consciousness: patient oriented x3 Neck: Neck: Yes no lymphadenopathy Resp: Auscultation: clear to auscultation bilaterally Cardio: Rhythm: abnormal rhythm GI: Other: Has long midline laparotomy incision Palpation (GI): Soft to palpation, Tenderness to palpation present (GI) (Mild tenderness diffusely) and no guarding Neuro: General: patient oriented x3 Results Results Labs: Short CBC 02/27/24 Range/Units 23:05 WBC 7.9 (4.8-10.8) X10*3/uL Hgb 12.8 (12.0-16.0) g/dl Hct 36.9 L (37.0-47.0) % Plt Count 143 L (160-400) X10*3/uL BMP 02/27/24 23:05 Sodium 133 L Potassium 4.0 Chloride 101 Carbon Dioxide 22 BUN 11 Creatinine 0.87 Calcium 9.1 Liver Function 02/27/24 Range/Units 23:05 Total Bilirubin 0.8 (0.0-1.0) mg/dL AST 40 H (5-31) U/L ALT 21 (0-31) U/L Alkaline Phosphatase 203 H (39-117) U/L Albumin 3.6 (3.5-5.0) g/dL Abdomen CT scan report/results: report reviewed and image reviewed CT scan - pelvis: report reviewed and image reviewed Additional studies: Laboratory Results WBC 7.9 X10*3/uL (4.8-10.8) 02/27/24 23:05 RBC 4.23 X10*6/uL (4.20-5.50) 02/27/24 23:05 Hgb 12.8 g/dl (12.0-16.0) 02/27/24 23:05 Hct 36.9 % (37.0-47.0) L 02/27/24 23:05 MCV 87.2 fL (80.0-98.0) 02/27/24 23:05 MCH 30.3 pg (27.0-33.0) 02/27/24 23:05 MCHC 34.7 g/dl (31.0-35.0) 02/27/24 23:05 RDW 13.4 % (11.0-16.0) 02/27/24 23:05 Plt Count 143 X10*3/uL (160-400) L 02/27/24 23:05 MPV 10.3 fL (9.4-12.3) 02/27/24 23:05 Immature Gran % (Auto) 0.3 % (0.0-0.4) 02/27/24 23:05 Neut % (Auto) 80.9 % (45-73) H 02/27/24 23:05 Lymph % (Auto) 7.0 % (20-40) L 02/27/24 23:05 Page % (Auto) 10.0 % (2-11) 02/27/24 23:05 Eos % (Auto) 1.3 % (0-4) 02/27/24 23:05 Baso % (Auto) 0.5 % (0-2) 02/27/24 23:05 Lymph # (Auto) 0.6 X10*3/uL (1.2-4.9) L 02/27/24 23:05 Page # (Auto) 0.8 X10*3/uL (0.1-1.2) 02/27/24 23:05 Eos # (Auto) 0.1 X10*3/uL (0.0-0.4) 02/27/24 23:05 Baso # (Auto) 0.0 X10*3/uL (0.0-0.2) 02/27/24 23:05 Abs Immat Gran (auto) 0.02 X10*3/uL (0.00-0.03) 02/27/24 23:05 Absolute Neuts (auto) 6.4 x10*3/uL (2.0-8.3) 02/27/24 23:05 Absolute Nucleated RBC 0.000 X10*3/uL (0.0-0.012) 02/27/24 23:05 Nucleated RBC % (auto) 0.0 /100WBC (0.0-0.2) 02/27/24 23:05 PT 14.5 SEC (11.1-13.3) H 02/27/24 23:05 INR 1.2 (0.9-1.1) H 02/27/24 23:05 APTT 35.1 SEC (26.0-36.8) 02/27/24 23:05 Sodium 133 mmol/L (135-145) L 02/27/24 23:05 Potassium 4.0 mmol/L (3.3-5.1) 02/27/24 23:05 Chloride 101 mmol/L (96-108) 02/27/24 23:05 Carbon Dioxide 22 mmol/L (22-29) 02/27/24 23:05 Anion Gap 14 (12-20) 02/27/24 23:05 BUN 11 mg/dL (9-16) 02/27/24 23:05 Creatinine 0.87 mg/dL (0.5-1.4) 02/27/24 23:05 Estim Creat Clear Calc 69.9 02/27/24 23:05 Estimated GFR > 60 02/27/24 23:05 Random Glucose 122 mg/dL (60-115) H 02/27/24 23:05 Lactic Acid 1.5 mmol/L (0.5-2.0) 02/27/24 23:05 Calcium 9.1 mg/dL (8.4-10.2) 02/27/24 23:05 Magnesium 1.5 mg/dL (1.6-2.6) L 02/27/24 23:05 Total Bilirubin 0.8 mg/dL (0.0-1.0) 02/27/24 23:05 AST 40 U/L (5-31) H 02/27/24 23:05 ALT 21 U/L (0-31) 02/27/24 23:05 Alkaline Phosphatase 203 U/L (39-117) H 02/27/24 23:05 Troponin I High Sens 4.9 ng/L (<3.5-17.0) 02/27/24 23:05 Total Protein 7.5 g/dL (6.5-8.0) 02/27/24 23:05 Albumin 3.6 g/dL (3.5-5.0) 02/27/24 23:05 Impressions Abdomen/Pelvis CT 02/27/24 22:55 IMPRESSION: 1. Multiple dilated loops of proximal to mid small bowel, suspicious for a small bowel obstruction. Transition point is suspected to be in the vicinity of a suture line in the lower abdomen. 2. Gastric band across the proximal stomach. The stomach distal to the band is distended with gas and fluid. 3. Diffuse mesenteric stranding and trace free fluid. 4. Limited evaluation for wall thickening throughout much of the colon due to luminal collapse; the possibility of a colitis would be difficult to exclude. Chest X-Ray 02/28/24 02:05 IMPRESSION: 1. Enteric tube tip in the region of the gastric antrum. 2. Slight prominence of the perihilar interstitium, which could reflect airways disease. Assessment and Plan (1) Small bowel obstruction: Status: Acute She was admitted this morning because of vomiting and abdominal pain. Her CAT scan shows dilated small bowel loops with a possible transition point in the pel vis consistent with partial small-bowel obstruction. She has had multiple episodes of this in the past in [place]. An NG tube has been placed. There was significant output initially Her abdominal exam is otherwise benign and she feels subjectively better. We will keep her NPO with the NG tube in place. She is on IV fluids for hydration. She understands that if she has worsening overall clinical picture, she may need laparotomy. She currently looks well. I have discussed the above with her son Gunnar Chambers at [phone]. (2) New onset a-fib: Status: Acute She used to be in atrial fibrillation on the monitor. This is new as she does not have a history of this from before. I have consulted the hospitalist abigail fournier. She does have a history of coronary disease so she may need to be followed by a anesthesia attending as well. Quality Stroke Does the patient have a stroke diagnosis?: No VTE Prior VTE?: No VTE Risk Level:: Medical - moderate - high VTE Device Contraindication: N/A - Device Ordered VTE Drug Contraindication: N/A - Med Ordered Procedures Date of Service Date of Service: 02/28/24
--- NOTE | 2024-02-28 09:04 | P.CONHOSP_ITS ---
History of Present Illness Data of Consult Service Date: 02/28/24 Requesting physician: Ryan Regalado Primary Care Provider: Molly Mcgowan MD [facility] Reason for consult: medical management 68-year-old female with history of hypertension, hyperlipidemia, cervical radiculopathy, coronary artery disease s/p cabg 2019, history of colon cancer with new onset atrial fibrillation admitted to general surgery with consult placed hospitalist service for medical management. She presents to the ED yesterday evening for evaluation of diffuse abdominal pain, vomiting and was diagnosed with small-bowel obstruction. While in the ED, EKG showed new onset atrial fibrillation, rate 91 with repeat EKG showing rate 102 with atrial fibrillation no acute ischemic changes. Renal function was baseline electrolyte levels normal except for mild hyponatremia of 133. She has been experiencing dyspnea on exertion for several weeks. She denies any headaches, lightheadedness, palpitations, dyspnea at rest, orthopnea, bilateral lower extremity edema, or chest pain. CXR negative for any pulmonary edema or effusions. Review of Systems 2 Review of Systems: General: No fevers, malaise, unintentional weight loss HEENT: No blurred vision, diplopia. No sore throat, nasal congestion, rhinorrhea, sinus pain, ear pain Cardiovascular: No chest pain, palpitations, or leg edema Respiratory: +GARCIA. No orthopnea, wheezing, cough GI: +abd pain, +vomiting, +nausea. No diarrhea, constipation, melena, hematochezia : No dysuria, hematuria, increased urinary frequency, decreased urinary output MSK: No myalgia, back pain Neuro: No headaches, weakness, paresthesias Skin: No rashes or lesions [facility] Medical History Atrial fibrillation Cervical radiculopathy due to degenerative joint disease of spine Essential hypertension Hyperlipidemia History of radius fracture Former cigarette smoker Degenerative disc disease, cervical CAD (coronary artery disease) Hx of colon cancer, stage III Family History Sister Substance use disorder Insulin dependent type 1 diabetes mellitus Mother Colon cancer Breast cancer Coronary artery disease High cholesterol Essential hypertension Surgical History History of esophagogastroduodenoscopy (EGD) History of surgery on right wrist History of tonsillectomy History of resection of small bowel History of parotidectomy History of lysis of adhesions Hx of laparoscopic adjustable gastric banding History of exploratory laparotomy Hx laparoscopic cholecystectomy Hx of colonoscopy History of cardiac catheterization History of bunionectomy History of appendectomy History of cervical discectomy History of cervical corpectomy History of fusion of cervical spine Hx of two vessel coronary artery bypass graft Social History Household Members: None Housing: Apartment Do you presently have visiting nurse or other home services: No Patient Tobacco Use Status: Former Tobacco user e-Cigarette/Vaping Use: Never Used Meds Allergies Allergy/AdvReac Type Severity Reaction Status Date / Time No Known Allergies Allergy Verified 02/27/24 22:06 Active Medications: Current Medications Heparin Sodium (Porcine) (Heparin Sodium,Porcine 5,000 Unit/Ml Vial) 5,000 unit SUBCUT Q8H [facility] Lactated Ringer's (Lr) 1,000 mls @ 100 mls/hr IVCONT .Q10H [facility] Last Admin: 02/28/24 03:51 Dose: 100 mls/hr Morphine Sulfate (Morphine Sulfate 4 Mg/Ml Cartridge) 3 mg IVPUSH Q3H PRN; Protocol PRN Reason: Pain, Severe (Pain Scale 7-10) Ondansetron HCl (Ondansetron Hcl 4 Mg/2 Ml Vial) 4 mg IVPUSH Q6H PRN PRN Reason: nausea Sodium Chloride (0.9 % Sodium Chloride Flush 3 Ml Syringe) 3 ml IVFLUSH QSHIFT [facility] Last Admin: 02/28/24 07:48 Dose: Not Given Home Medications ?Medication ?Instructions ?Recorded ?Confirmed ?Last Taken ?Type acetaminophen 325 mg tablet 650 mg PO Q8H PRN ARTHRITIS PAIN 01/09/24 02/28/24 Unknown History aspirin 81 mg tablet,delayed 81 mg PO DAILY 01/09/24 02/28/24 02/27/24 History release carbamazepine 200 mg tablet 200 mg PO TID 01/09/24 02/28/24 02/27/24 History citalopram 40 mg tablet 40 mg PO DAILY 01/09/24 02/28/24 02/27/24 History clopidogrel 75 mg tablet (Plavix) 75 mg PO DAILY 01/09/24 02/28/24 02/27/24 History cyclobenzaprine 10 mg tablet 10 mg PO BEDTIME PRN Pain 01/09/24 02/28/24 Unknown History furosemide 20 mg tablet 20 mg PO DAILY 01/09/24 02/28/24 02/27/24 History lactobacillus combination no.4 3 3,000 mmu cells PO DAILY 01/09/24 02/28/24 02/27/24 History billion cell capsule (Probiotic) metoprolol tartrate 25 mg tablet 12.5 mg PO BID 01/09/24 02/28/24 02/27/24 History quetiapine 200 mg tablet,extended 200 mg PO BEDTIME 01/09/24 02/28/24 02/26/24 History release 24 hr ammonium lactate 12 % topical cream 1 appl topical BID 02/06/24 02/28/24 02/27/24 History temazepam 30 mg capsule 15 mg PO BEDTIME PRN Sleep 02/06/24 02/28/24 02/26/24 History albuterol sulfate 2.5 mg/3 mL 2.5 mg inhalation BID 02/28/24 02/28/24 02/27/24 History (0.083 %) solution for nebulization multivitamin 1 tab PO DAILY 02/28/24 02/28/24 02/27/24 History omega-3 fatty acids-fish oil 684 1 cap PO DAILY 02/28/24 02/28/24 02/27/24 History mg-1,200 mg capsule,delayed release pantoprazole 40 mg tablet,delayed 40 mg PO BID 02/28/24 02/28/24 02/27/24 History release Physical Exam 2 Vital Signs and Narrative: Vital Signs: Last Vital Signs Temp 98.7 F 02/28/24 06:10 Pulse 100 02/28/24 06:10 Resp 12 02/28/24 06:10 BP 131/89 02/28/24 06:10 Pulse Ox 94 02/28/24 06:10 O2 Del Method Room Air 02/28/24 06:10 BMI result Body Mass Index 36.6 Constitutional - Awake and Alert, No apparent distress Eyes - PERRLA, EOMI Cardiovascular - S1S2, irregularly irregular, rate normal, No edema Respiratory - Normal lung expansion, Normal respiratory effort, No respiratory distress, CTA bilaterally Gastrointestinal - NT / ND; +BS; No rebound or guarding - No CVA tenderness Extremities - no calf tenderness bilaterally, no swelling Musculoskeletal - Normal inspection, normal ROM Skin - Warm/Dry Neurological - Alert & oriented x3, CN II-XII in tact, 5/5 strength BUE and BLE Psychological - Appropriate affect Results Labs 02/27/24 23:05 02/27/24 23:05 Labs: Laboratory Results - last 24 hr 02/27/24 23:05 MCV 87.2 MCH 30.3 MCHC 34.7 RDW 13.4 Plt Count 143 L MPV 10.3 Immature Gran % (Auto) 0.3 Neut % (Auto) 80.9 H Lymph % (Auto) 7.0 L [place] % (Auto) 10.0 Eos % (Auto) 1.3 Baso % (Auto) 0.5 Lymph # (Auto) 0.6 L [place] # (Auto) 0.8 Eos # (Auto) 0.1 Baso # (Auto) 0.0 Abs Immat Gran (auto) 0.02 Absolute Neuts (auto) 6.4 Absolute Nucleated RBC 0.000 Nucleated RBC % (auto) 0.0 PT 14.5 H INR 1.2 H APTT 35.1 Anion Gap 14 Estim Creat Clear Calc 69.9 Estimated GFR > 60 Random Glucose 122 H Lactic Acid 1.5 Calcium 9.1 Magnesium 1.5 L Total Bilirubin 0.8 AST 40 H ALT 21 Alkaline Phosphatase 203 H Troponin I High Sens 4.9 Total Protein 7.5 Albumin 3.6 Imaging Radiologist's Impressions: Impressions Abdomen/Pelvis CT 02/27/24 22:55 IMPRESSION: 1. Multiple dilated loops of proximal to mid small bowel, suspicious for a small bowel obstruction. Transition point is suspected to be in the vicinity of a suture line in the lower abdomen. 2. Gastric band across the proximal stomach. The stomach distal to the band is distended with gas and fluid. 3. Diffuse mesenteric stranding and trace free fluid. 4. Limited evaluation for wall thickening throughout much of the colon due to luminal collapse; the possibility of a colitis would be difficult to exclude. Chest X-Ray 02/28/24 02:05 IMPRESSION: 1. Enteric tube tip in the region of the gastric antrum. 2. Slight prominence of the perihilar interstitium, which could reflect airways disease. Assessment and Plan (1) Atrial fibrillation: Status: Inactive (2) Small bowel obstruction: Status: Acute (3) New onset a-fib: Status: Acute Plan 68-year-old female with history of hypertension, hyperlipidemia, cervical radiculopathy, coronary artery disease, history of colon cancer with new onset atrial fibrillation admitted to general surgery with consult placed hospitalist service for medical management. #SBO -plan per General surgery -NG tube in place attached to suction # new onset atrial fibrillation-rate controlled -initiate heparin drip per protocol per Cardiology, okay per Dr. Regalado -hold DAPT at this time. Will discharge on asa and eliquis, dc plavix -metoprolol 12.5 mg b.i.d. -advanced to cardiac diet -echocardiogram -cardiology consult -monitor on telemetry # hypertension -continue metoprolol, Lasix # CAD/HLD -hold DAPT in case of surgery. Continue metoprolol, statin -DC plavix on dc (cabg 2018) # mood disorder -Continue home medications Thank you for this consult, will continue following
[2024-02-28 09:27] VITALS: BP 133/62; PULSE 110; RESP 18; TEMP 36.2; O2SAT 96
--- NOTE | 2024-02-28 10:07 | PM.CNCAR ---
History of Present Illness History of Present Illness Date of Service: 02/28/24 Chief complaint: Small bowel obstruction Narrative: This is a cardiology consultation regarding atrial fibrillation. It seems that she used to live in [place] and has moved here. History of coronary artery bypass surgery in 2019. She is currently here for small bowel obstruction. In this context, noted to have atrial fibrillation and does no prior history documented. Patient herself does not have any clear cardiac symptoms at this time. Per surgery note, vomiting/abdominal pain and CT scan shows dilated small bowel suggestive of partial small bowel obstruction. She has had this apparently the past. Status post NG tube placement. She is also NPO. Review of Systems Review of Systems: Yes all other systems are reviewed and are negative Constitutional: Constitutional: Reports as per HPI and Reports no additional constitutional complaints Eyes: Eyes: Reports as per HPI and Denies no additional eye complaints ENT: Denies system reviewed and no additional complaints, except as documented and Reports as per HPI Cardiovascular: Cardiovascular: Reports as per HPI, Reports no additional cardiovascular complaints, Denies acrocyanosis, Denies cool extremities, Denies chest pain, Denies leg edema, Denies lightheadedness, Denies palpitations and Denies dyspnea Respiratory: Respiratory: Reports as per HPI, Denies no additional respiratory complaints and Denies dyspnea Gastrointestinal: Gastrointestinal: Reports as per HPI, Denies no additional gastrointestinal complaints, Reports abdominal pain, Reports nausea and Reports vomiting Genitourinary: Genitourinary: Reports as per HPI Musculoskeletal: Musculoskeletal: Reports no additional musculoskeletal complaints and Reports as per HPI Integumentary/Breasts: Skin/Breast: Reports system reviewed and no additional complaints, except as docu Neurologic: Reports system reviewed and no additional complaints, except as documented and Reports as per HPI Psychiatric: Psychiatric: Reports no additional psychiatric complaints and Reports as per HPI Endocrine: Endocrine: Reports no additional endocrine complaints, Reports as per HPI and Denies palpitations Hematologic/Lymphatic: Hematologic/Lymphatic: Reports no additional hematologic/lymphatic complaints and Reports as per HPI Allergic/Immunologic: Allergic/Immunologic: Reports no additional allergic/immunologic complaints and Reports as per HPI [facility] Past Medical History Medical History Atrial fibrillation Cervical radiculopathy due to degenerative joint disease of spine Essential hypertension Hyperlipidemia History of radius fracture Former cigarette smoker Degenerative disc disease, cervical CAD (coronary artery disease) Hx of colon cancer, stage III Family History Family History Sister Substance use disorder Insulin dependent type 1 diabetes mellitus Mother Colon cancer Breast cancer Coronary artery disease High cholesterol Essential hypertension Surgical History Surgical History History of esophagogastroduodenoscopy (EGD) History of surgery on right wrist History of tonsillectomy History of resection of small bowel History of parotidectomy History of lysis of adhesions Hx of laparoscopic adjustable gastric banding History of exploratory laparotomy Hx laparoscopic cholecystectomy Hx of colonoscopy History of cardiac catheterization History of bunionectomy History of appendectomy History of cervical discectomy History of cervical corpectomy History of fusion of cervical spine Hx of two vessel coronary artery bypass graft Social History Social History Household Members: None Housing: Apartment Do you presently have visiting nurse or other home services: No Patient Tobacco Use Status: Former Tobacco user e-Cigarette/Vaping Use: Never Used Meds Allergies Allergy/AdvReac Type Severity Reaction Status Date / Time No Known Allergies Allergy Verified 02/27/24 22:06 Active Medications: Current Medications Heparin Sodium (Porcine) (Heparin Sodium,Porcine 5,000 Unit/Ml Vial) 5,000 unit SUBCUT Q8H [facility] Lactated Ringer's (Lr) 1,000 mls @ 100 mls/hr IVCONT .Q10H [facility] Last Admin: 02/28/24 03:51 Dose: 100 mls/hr Morphine Sulfate (Morphine Sulfate 4 Mg/Ml Cartridge) 3 mg IVPUSH Q3H PRN; Protocol PRN Reason: Pain, Severe (Pain Scale 7-10) Ondansetron HCl (Ondansetron Hcl 4 Mg/2 Ml Vial) 4 mg IVPUSH Q6H PRN PRN Reason: nausea Sodium Chloride (0.9 % Sodium Chloride Flush 3 Ml Syringe) 3 ml IVFLUSH QSHIFT [facility] Last Admin: 02/28/24 07:48 Dose: Not Given Home Medications ?Medication ?Instructions ?Recorded ?Confirmed ?Last Taken ?Type acetaminophen 325 mg tablet 650 mg PO Q8H PRN ARTHRITIS PAIN 01/09/24 02/06/24 Unknown History albuterol sulfate 90 mcg/actuation 1 inh inhalation BID PRN Shortness 01/09/24 02/06/24 Unknown History aerosol inhaler Of Breath Or Wheezing aspirin 81 mg tablet,delayed 81 mg PO DAILY 01/09/24 02/06/24 Unknown History release carbamazepine 200 mg tablet 200 mg PO TID 01/09/24 02/06/24 Unknown History citalopram 40 mg tablet 40 mg PO DAILY 01/09/24 02/06/24 Unknown History clopidogrel 75 mg tablet (Plavix) 75 mg PO DAILY 01/09/24 02/06/24 Unknown History cyclobenzaprine 10 mg tablet 10 mg PO BEDTIME PRN Headache 01/09/24 02/06/24 Unknown History furosemide 20 mg tablet 20 mg PO DAILY 01/09/24 02/06/24 Unknown History lactobacillus combination no.4 3 3,000 mmu cells PO DAILY 01/09/24 02/06/24 Unknown History billion cell capsule (Probiotic) metoprolol tartrate 25 mg tablet 12.5 mg PO DAILY 01/09/24 02/06/24 Unknown History multivitamin with minerals-folic 1 tab PO DAILY 01/09/24 02/06/24 Unknown History acid 0.4 mg tablet omega-3 fatty acids 1,000 mg PO DAILY 01/09/24 02/06/24 Unknown History quetiapine 200 mg tablet,extended 200 mg PO BEDTIME 01/09/24 02/06/24 Unknown History release 24 hr ammonium lactate 12 % topical cream 1 appl topical BID 02/06/24 02/06/24 Unknown History nystatin 100,000 unit/gram topical 1 appl topical DAILY 02/06/24 02/06/24 Unknown History powder temazepam 30 mg capsule 15 mg PO BEDTIME PRN Sleep 02/06/24 02/06/24 Unknown History Physical Exam Vital Signs: Vital Signs: Last Vital Signs Temp 97.2 F 02/28/24 09:27 Pulse 110 H 02/28/24 09:27 Resp 18 02/28/24 09:27 BP 133/62 02/28/24 09:27 Pulse Ox 96 02/28/24 09:27 O2 Del Method Room Air 02/28/24 09:27 BMI result Body Mass Index 36.6 Const: General: comfortable and no acute distress Orientation/consciousness: patient oriented x3 HEENT: Other: Unremarkable Head: Yes normal to inspection Neck: Neck: Yes normal visual inspection Chest: Chest palpation & inspection: normal inspection of the chest Resp: Auscultation: clear to auscultation bilaterally Cardio: Palpation: normal PMI Heart sounds: S1 normal heart sound present, S2 normal heart sound present, no gallops, no murmurs and no rubs GI: Palpation (GI): Soft to palpation Back/Spine/Pelvis: Other: unremarkable Skin: General skin exam: no rashes or lesions noted Neuro: General: patient oriented x3 Extrem: General: Yes normal to inspection Psych: Mental Status: mental status grossly normal Objective Labs and Meds 02/27/24 23:05 02/27/24 23:05 Lab results: Laboratory Results - last 24 hr 02/27/24 23:05 WBC 7.9 RBC 4.23 Hgb 12.8 Hct 36.9 L MCV 87.2 MCH 30.3 MCHC 34.7 RDW 13.4 Plt Count 143 L MPV 10.3 Immature Gran % (Auto) 0.3 Neut % (Auto) 80.9 H Lymph % (Auto) 7.0 L [place] % (Auto) 10.0 Eos % (Auto) 1.3 Baso % (Auto) 0.5 Lymph # (Auto) 0.6 L [place] # (Auto) 0.8 Eos # (Auto) 0.1 Baso # (Auto) 0.0 Abs Immat Gran (auto) 0.02 Absolute Neuts (auto) 6.4 Absolute Nucleated RBC 0.000 Nucleated RBC % (auto) 0.0 PT 14.5 H INR 1.2 H APTT 35.1 Sodium 133 L Potassium 4.0 Chloride 101 Carbon Dioxide 22 Anion Gap 14 BUN 11 Creatinine 0.87 Estim Creat Clear Calc 69.9 Estimated GFR > 60 Random Glucose 122 H Lactic Acid 1.5 Calcium 9.1 Magnesium 1.5 L Total Bilirubin 0.8 AST 40 H ALT 21 Alkaline Phosphatase 203 H Troponin I High Sens 4.9 Total Protein 7.5 Albumin 3.6 ECG Interpretation: EKG from February 26 with atrial fibrillation at 91/Min; leftward axis; cannot exclude old anterior infarct. Repeat EKG is similar. Imaging Radiologist's impression: Impressions Abdomen/Pelvis CT 02/27/24 22:55 IMPRESSION: 1. Multiple dilated loops of proximal to mid small bowel, suspicious for a small bowel obstruction. Transition point is suspected to be in the vicinity of a suture line in the lower abdomen. 2. Gastric band across the proximal stomach. The stomach distal to the band is distended with gas and fluid. 3. Diffuse mesenteric stranding and trace free fluid. 4. Limited evaluation for wall thickening throughout much of the colon due to luminal collapse; the possibility of a colitis would be difficult to exclude. Chest X-Ray 02/28/24 02:05 IMPRESSION: 1. Enteric tube tip in the region of the gastric antrum. 2. Slight prominence of the perihilar interstitium, which could reflect airways disease. Assessment and Plan (1) New onset a-fib: Status: Acute (2) Small bowel obstruction: Status: Acute (3) CAD (coronary artery disease): Status: Acute Plan High sensitivity troponin within normal limits. Patient essentially has newly detected atrial fibrillation of uncertain duration in the context of small-bowel obstruction and with a prior history of coronary artery disease/coronary artery bypass. At the current time, she is NPO. Her ventricular rate is not too fast and hence okay to just monitor. If it does indeed go very rapid, then may need Cardizem intravenously. We will get an echocardiogram. Most likely rate control only at this time based on the overall clinical situation. With regard to anticoagulation, will need to discuss with surgery. Unclear bleeding risk with small-bowel obstruction. Will follow-up with you. Procedures Date of Service Date of Service: 02/28/24
--- NOTE | 2024-02-28 10:41 | PHA.MEDREC ---
Pharmacy Consult ? Medication Reconciliation Pharmacy has completed the medication reconciliation. Spoke to patient, she has her medication list with her and confirmed them. She takes albuterol solution BID, pantoprazole 40 mg BID, metoprolol tart 12.5 mg BID and no famotidine.
--- NOTE | 2024-02-28 12:07 | MHC.CM.PN ---
IMM delivered. Patient lives in an apartment alone. Son lives nearby and provides support/transportation PRN. Ambulates w/ rollator. Indp w/ hygiene. PCP Molly Mcgowan MD Patient reports her HCP is her son Gunnar. Copy requested. Gunnar will bring. DP: Goal is home self care. Son to transport. CM will continue to follow.
--- NOTE | 2024-02-28 14:59 | PM.EVENT ---
Event Note Date of Service: 02/29/24 Event Note: Feels better denies abdominal pain no nausea or vomiting abdomen soft and benign just started on heparin drip for the onset atrial fibrillation keep NG tube in place son Gunnar Chambers updated again Time Spent With Patient Time: Total time managing care of this patient today ____ minutes.
[2024-02-28] MEDS: carBAMazepine 200 MG TABLET PO ×2 (15:49→20:37)
[2024-02-28] MEDS: 0.9 % Sodium Chloride 1,000 ML 80 ML IVCONT (15:49)
--- NOTE | 2024-02-28 16:01 | PC.NURSE ---
Heparin drip ordered. Difficulty getting a 2nd IV line for patient to have both IV fluids and Heparin drip infusing. Pt NPO. Ultrasound guided IV trained staff attempted midline without success. 22g peripheral inserted left forearm. Phlebotomy having difficulty drawing PTT-HD. Awaiting results to start Heparin Drip. Dr. Dan aware. Patient had 5 Beat Vtach at [address] Dan notified.
[2024-02-28 16:22] LABS: PTT Heparin Drip 34.6 SEC (53-77.9)
[2024-02-28] MEDS: Heparin Sodium,Porcine 5,000 UNIT/ML VIAL 4000 UNIT IVPUSH (16:39)
[2024-02-28] MEDS: Heparin Sodium,Porcine/1/2NS 25,000 UNIT/250 ML IV.SOLN 10 UNIT IVCONT (16:44)
--- NOTE | 2024-02-28 17:29 | PC.NURSE ---
Patient can be off tele monitor for testing per Dr. Dan
--- NOTE | 2024-02-28 17:54 | HO.MIDLINE ---
Midline Insertion MIDLINE INSERTION Diagnosis:SBO Indication: poor iv access Pertinent Labs: reviewed Technique: Using sterile technique including cap and mask, glove and drape, the right arm was prepped and draped in the usual sterile fashion of full barrier technique with G. Using ultrasound guidance, right basilic vein access was obtained . 4fr nonPASV PowerMidline catheter was positioned. The procedure was performed in [facility]. Ultrasound was used to document vein patency and for needle entry. A formal ultrasound picture was recorded. [employer]ice has released the line for use and it is currently dressed with a StatLock, Tegaderm, and CHG disc. Verification has been performed for blood return and line patency. Arm Circumference: 35.5cm Equipment: BARD PowerMidline catheter Catheter Type: 4fr nonPASV catheter trimmed to 10cm Lot #: [id number]
[2024-02-28 18:18] VITALS: BP 139/85; PULSE 103; RESP 17; TEMP 36.6; O2SAT 94
[2024-02-28] MEDS: Acetaminophen 325 MG TABLET 650 MG PO (18:47)
[2024-02-28 19:09] VITALS: BP 130/73; PULSE 109; RESP 18; TEMP 36.8; O2SAT 95
[2024-02-28] MEDS: Albuterol Sulfate (0.083%) 2.5 MG/3 ML VIAL.NEB INHALE (19:33)
[2024-02-28 19:39] VITALS: PULSE 103; RESP 18; O2SAT 95
[2024-02-28] MEDS: Omeprazole 20 MG CAPSULE.DR PO (20:37)
[2024-02-28] MEDS: Metoprolol Tartrate 12.5 MG HALFTAB PO (20:37)
[2024-02-28] MEDS: QUEtiapine Fumarate 100 MG TABLET PO (20:38)
[2024-02-28] MEDS: Ammonium Lactate 12 % Cream 140 GM TUBE 1 APPL TOPICAL (20:58)
--- NOTE | 2024-02-28 21:01 | PC.NURSE ---
Small amt of bleeding noted around midline insertion site,arm elevated on a pillow,drsg with light pressure applied,will monitor,patient is on heparin drip,Dr. Helm notified
[2024-02-28] MEDS: Temazepam 15 MG CAPSULE PO (22:49)
[2024-02-28 23:48] LABS: PTT Heparin Drip 125.1 SEC (53-77.9)
[2024-02-29] VITALS (7 sets, daily range): BP systolic 126–140; BP diastolic 60–80; PULSE 95–99; RESP 16–18; TEMP 36.1–37.2; O2SAT 95–97
[2024-02-29 01:40] LABS: PTT Heparin Drip 89.8 SEC (53-77.9)
[2024-02-29] MEDS: 0.9 % Sodium Chloride 1,000 ML 80 ML IVCONT ×2 (04:14→15:30)
[2024-02-29 06:29] LABS: PTT Heparin Drip 67.7 SEC (53-77.9)
[2024-02-29] MEDS: Albuterol Sulfate (0.083%) 2.5 MG/3 ML VIAL.NEB INHALE ×2 (08:00→20:08)
[2024-02-29] MEDS: QUEtiapine Fumarate 100 MG TABLET PO ×2 (08:21→20:49)
[2024-02-29] MEDS: Furosemide 20 MG TABLET PO (08:21)
[2024-02-29] MEDS: Omeprazole 20 MG CAPSULE.DR PO ×2 (08:21→20:50)
[2024-02-29] MEDS: carBAMazepine 200 MG TABLET PO ×3 (08:21→20:50)
[2024-02-29] MEDS: Metoprolol Tartrate 12.5 MG HALFTAB PO ×2 (08:21→20:50)
[2024-02-29] MEDS: Heparin Sodium,Porcine Flush 50 UNITS, 0.9 % Sodium Chloride Flush 5 ML IVFLUSH (08:22)
[2024-02-29] MEDS: Escitalopram Oxalate 20 MG TABLET PO (08:22)
[2024-02-29] MEDS: Multivitamin TABLET 1 TAB PO (08:22)
[2024-02-29] MEDS: Atorvastatin Calcium 80 MG TABLET PO (08:22)
[2024-02-29] MEDS: Ammonium Lactate 12 % Cream 140 GM TUBE 1 APPL TOPICAL ×2 (08:23→20:46)
--- NOTE | 2024-02-29 09:03 | P.PNIM_ITS ---
Subjective Subjective Date of Service: 02/29/24 Interval History: passing gas, had 2 episodes of asympatomatic 4-5 beat NSVT Physical Exam 2 Vital Signs: Vital Signs: Last Vital Signs Temp 97.4 F 02/29/24 07:34 Pulse 99 02/29/24 08:04 Resp 16 02/29/24 08:04 BP 140/76 H 02/29/24 08:21 Pulse Ox 96 02/29/24 07:34 O2 Del Method Room Air 02/29/24 07:34 BMI result Body Mass Index 36.6 Const: General: comfortable and no acute distress O rientation/consciousness: patient oriented x3 HEENT: Other: Unremarkable Head: Yes normal to inspection Neck: Neck: Yes normal visual inspection Chest: Chest palpation & inspection: normal inspection of the chest Resp: Auscultation: clear to auscultation bilaterally Cardio: Palpation: normal PMI Heart sounds: S1 normal heart sound present, S2 normal heart sound present, no gallops, no murmurs and no rubs GI: Palpation (GI): Soft to palpation Back/Spine/Pelvis: Other: unremarkable Skin: General skin exam: no rashes or lesions noted Neuro: General: patient oriented x3 Extrem: General: Yes normal to inspection Psych: Mental Status: mental status grossly normal Objective Data Active Medications Acetaminophen (Acetaminophen 325 Mg Tablet) 650 mg PO Q8H PRN PRN Reason: ARTHRITIS PAIN Last Admin: 02/28/24 18:47 Dose: 650 mg Documented By: JENNY Albuterol Sulfate (Albuterol Sulfate (0.083%) 2.5 Mg/3 Ml Vial.Neb) 2.5 mg INHALE BID [facility] Last Admin: 02/29/24 08:00 Dose: 2.5 mg Documented By: DEANNA Atorvastatin Calcium (Atorvastatin Calcium 80 Mg Tablet) 80 mg PO DAILY [facility] Last Admin: 02/29/24 08:22 Dose: 80 mg Documented By: REBECCA Carbamazepine (Carbamazepine 200 Mg Tablet) 200 mg PO TID [facility] Last Admin: 02/29/24 08:21 Dose: 200 mg Documented By: REBECCA Heparin Sodium (Porcine) 50 (units/ Sodium Chloride 5 ml) 0 units IVFLUSH QSHIFT [facility] Last Admin: 02/29/24 08:22 Dose: 50 unit Documented By: JENNIFEREMA Ergocalciferol (Ergocalciferol (Vitamin D2) 1,250 Mcg Capsule) 1,250 mcg PO LEYVA [facility] Escitalopram Oxalate (Escitalopram Oxalate 20 Mg Tablet) 20 mg PO DAILY [facility] Last Admin: 02/29/24 08:22 Dose: 20 mg Documented By: COTEMA Furosemide (Furosemide 20 Mg Tablet) 20 mg PO DAILY [facility]; Protocol Last Admin: 02/29/24 08:21 Dose: 20 mg Documented By: COTEMA Heparin Sodium (Porcine) (Heparin Sodium,Porcine 5,000 Unit/Ml Vial) 3,900 unit 40 unit/kg (3900 unit) IVPUSH PROTOCOL BOLUS PRN; Protocol PRN Reason: 40 unit/kg - Heparin Protocol Heparin Sodium (Porcine) (Heparin Sodium,Porcine 5,000 Unit/Ml Vial) 7,700 unit 80 unit/kg (7700 unit) IVPUSH PROTOCOL BOLUS PRN; Protocol PRN Reason: 80 unit/kg - Heparin Protocol Heparin Sodium/Sodium Chloride (Heparin Sodium,Porcine/1/2ns) 25,000 unit in 250 mls @ 0 mls/hr IVCONT .Q0M [facility]; Protocol Last Titration: 02/29/24 07:11 Dose: 6.33 units/kg/hr, 6.13 mls/hr Documented By: JONATHAN Co-signed By: COTEMA Sodium Chloride (Ns) 1,000 mls @ 80 mls/hr IVCONT .[id number] [facility] Last Admin: 02/29/24 04:14 Dose: 80 mls/hr Documented By: ALEXIA Lactic Acid (Ammonium Lactate 12 % Cream 140 Gm Tube) 1 appl TOPICAL BID [facility]; Protocol Last Admin: 02/29/24 08:23 Dose: 1 appl Documented By: COTEMA Metoprolol Tartrate (Metoprolol Tartrate 12.5 Mg Halftab) 12.5 mg PO BID [facility]; Protocol Last Admin: 02/29/24 08:21 Dose: 12.5 mg Documented By: COTEMA Morphine Sulfate (Morphine Sulfate 4 Mg/Ml Cartridge) 3 mg IVPUSH Q3H PRN; Protocol PRN Reason: Pain, Severe (Pain Scale 7-10) Multivitamins/Vitamin C (Multivitamin Tablet) 1 tab PO DAILY [facility] Last Admin: 02/29/24 08:22 Dose: 1 tab Documented By: HO.COTEMA Omeprazole (Omeprazole 20 Mg Capsule.) 20 mg PO BID [facility] Last Admin: 02/29/24 08:21 Dose: 20 mg Documented By: COTEMA Ondansetron HCl (Ondansetron Hcl 4 Mg/2 Ml Vial) 4 mg IVPUSH Q6H PRN PRN Reason: nausea Quetiapine Fumarate (Quetiapine Fumarate 100 Mg Tablet) 100 mg PO BID [facility] Last Admin: 02/29/24 08:21 Dose: 100 mg Documented By: COTEMA Sodium Chloride (0.9 % Sodium Chloride Flush 3 Ml Syringe) 3 ml IVFLUSH QSHIFT [facility] Last Admin: 02/29/24 07:22 Dose: Not Given Documented By: COTEMA Non-Admin Reason: IV Running Temazepam (Temazepam 15 Mg Capsule) 15 mg PO BEDTIME PRN PRN Reason: Sleep Last Admin: 02/28/24 22:49 Dose: 15 mg Documented By: BEIT Labs 02/27/24 23:05 02/27/24 23:05 Labs: Laboratory Results - last 24 hr 02/28/24 02/28/24 02/29/24 15:48 23:18 01:19 aPTT Heparin Protocol 34.6 L 125.1 H* D 89.8 H D 02/29/24 05:59 aPTT Heparin Protocol 67.7 D Assessment and Plan (1) New onset a-fib: Status: Acute Plan 68F PMH htn, hld, cervical radiculopathy, CAD, colon ca, presented with SBO, now with ?new onset afib SBO plan per surgery has NGT, npo, ivf, reports passing gas afib - ?new onset rate reasonably well controlled on metoprolol tartate 12.5mg bid continue iv heparin drip - change to eliquis when SBO resolved echo - EF >70%, LAE, lvh (see report) htn metoprolol CAD holding DAPT in case of surgery when restarting, can hold off on plavix indefinitely as now on anticoagulation, continue asa when restarting statin dvt prophylaxis - on iv heparin full code Quality Stroke Does the patient have a stroke diagnosis?: No VTE Prior VTE?: No VTE Risk Level:: Medical - moderate - high VTE Device Contraindication: N/A - Device Ordered VTE Drug Contraindication: N/A - Med Ordered
--- NOTE | 2024-02-29 09:52 | P.PNGS_ITS ---
Subjective Subjective Date of Service: 02/29/24 <So Mullins PA-C - Last Filed: 02/29/24 09:55> 02/29/24 <yRan Regalado MD - Last Filed: 02/29/24 13:36> Interval history: Denies abdominal pain or nausea. She is passing flatus. Feels hungry. OOB to bathroom to void. <So Mullins PA-C - Last Filed: 02/29/24 09:55> Physical Exam 2 Vital Signs: Vital Signs: Last Vital Signs Temp 97.4 F 02/29/24 07:34 Pulse 99 02/29/24 08:04 Resp 16 02/29/24 08:04 BP 140/76 H 02/29/24 08:21 Pulse Ox 96 02/29/24 07:34 O2 Del Method Room Air 02/29/24 07:34 BMI result Body Mass Index 36.6 <So Mullins PA-C - Last Filed: 02/29/24 09:55> Const: General: comfortable, no acute distress and alert <So Mullins PA-C - Last Filed: 02/29/24 09:55> Orientation/consciousness: patient oriented x3 <So Mullins PA-C - Last Filed: 02/29/24 09:55> Resp: Effort & Inspection: normal respiratory effort <So Mullins PA-C - Last Filed: 02/29/24 09:55> GI: Inspection: No distended <So Mullins PA-C - Last Filed: 02/29/24 09:55> Palpation (GI): Soft to palpation, Tenderness to palpation present (GI) (very mild discomfort upper abd) and no guarding <So Mullins PA-C - Last Filed: 02/29/24 09:55> Skin: General skin exam: no rashes or lesions noted <BIANCA Weinstein Last Filed: 02/29/24 09:55> Neuro: General: patient oriented x3 and moves all extremities <BIANCA Weinstein Last Filed: 02/29/24 09:55> Objective Data Active Medications Acetaminophen (Acetaminophen 325 Mg Tablet) 650 mg PO Q8H PRN PRN Reason: ARTHRITIS PAIN Last Admin: 02/28/24 18:47 Dose: 650 mg Documented By: JENNY Albuterol Sulfate (Albuterol Sulfate (0.083%) 2.5 Mg/3 Ml Vial.Neb) 2.5 mg INHALE BID [facility] Last Admin: 02/29/24 08:00 Dose: 2.5 mg Documented By: DEANNA Atorvastatin Calcium (Atorvastatin Calcium 80 Mg Tablet) 80 mg PO DAILY [facility] Last Admin: 02/29/24 08:22 Dose: 80 mg Documented By: COTEMA Carbamazepine (Carbamazepine 200 Mg Tablet) 200 mg PO TID [facility] Last Admin: 02/29/24 08:21 Dose: 200 mg Documented By: COTEMA Heparin Sodium (Porcine) 50 (units/ Sodium Chloride 5 ml) [address] [facility] [facility] Last Admin: 02/29/24 08:22 Dose: 50 unit Documented By: COTEMA Ergocalciferol (Ergocalciferol (Vitamin D2) 1,250 Mcg Capsule) 1,250 mcg PO [facility] Escitalopram Oxalate (Escitalopram Oxalate 20 Mg Tablet) 20 mg PO DAILY [facility] Last Admin: 02/29/24 08:22 Dose: 20 mg Documented By: COTEMA Furosemide (Furosemide 20 Mg Tablet) 20 mg PO DAILY [facility]; Protocol Last Admin: 02/29/24 08:21 Dose: 20 mg Documented By: COTEMA Heparin Sodium (Porcine) (Heparin Sodium,Porcine 5,000 Unit/Ml Vial) 3,900 unit 40 unit/kg (3900 unit) IVPUSH PROTOCOL BOLUS PRN; Protocol PRN Reason: 40 unit/kg - Heparin Protocol Heparin Sodium (Porcine) (Heparin Sodium,Porcine 5,000 Unit/Ml Vial) 7,700 unit 80 unit/kg (7700 unit) IVPUSH PROTOCOL BOLUS PRN; Protocol PRN Reason: 80 unit/kg - Heparin Protocol Heparin Sodium/Sodium Chloride (Heparin Sodium,Porcine/1/2ns) 25,000 unit in 250 mls @ 0 mls/hr IVCONT .Q0M [facility]; Protocol Last Titration: 02/29/24 07:11 Dose: 6.33 units/kg/hr, 6.13 mls/hr Documented By: JONATHAN Co-signed By: COTEMA Sodium Chloride (Ns) 1,000 mls @ 80 mls/hr IVCONT .[id number] [facility] Last Admin: 02/29/24 04:14 Dose: 80 mls/hr Documented By: ALEXIA Magnesium Sulfate (Magnesium Sulfate/H2o) 2 gm in 50 mls @ 25 mls/hr IV ONCE ONE Stop: 02/29/24 11:02 Lactic Acid (Ammonium Lactate 12 % Cream 140 Gm Tube) 1 appl TOPICAL BID [facility]; Protocol Last Admin: 02/29/24 08:23 Dose: 1 appl Documented By: COTEMA Metoprolol Tartrate (Metoprolol Tartrate 12.5 Mg Halftab) 12.5 mg PO BID [facility]; Protocol Last Admin: 02/29/24 08:21 Dose: 12.5 mg Documented By: COTEMA Morphine Sulfate (Morphine Sulfate 4 Mg/Ml Cartridge) 3 mg IVPUSH Q3H PRN; Protocol PRN Reason: Pain, Severe (Pain Scale 7-10) Multivitamins/Vitamin C (Multivitamin Tablet) 1 tab PO DAILY [facility] Last Admin: 02/29/24 08:22 Dose: 1 tab Documented By: JENNIFEREMA Omeprazole (Omeprazole 20 Mg Capsule.) 20 mg PO BID [facility] Last Admin: 02/29/24 08:21 Dose: 20 mg Documented By: COTEMA Ondansetron HCl (Ondansetron Hcl 4 Mg/2 Ml Vial) 4 mg IVPUSH Q6H PRN PRN Reason: nausea Quetiapine Fumarate (Quetiapine Fumarate 100 Mg Tablet) 100 mg PO BID [facility] Last Admin: 02/29/24 08:21 Dose: 100 mg Documented By: COTEMA Sodium Chloride (0.9 % Sodium Chloride Flush 3 Ml Syringe) 3 ml IVFLUSH QSHIFT [facility] Last Admin: 02/29/24 07:22 Dose: Not Given Documented By: COTEMA Non-Admin Reason: IV Running Temazepam (Temazepam 15 Mg Capsule) 15 mg PO BEDTIME PRN PRN Reason: Sleep Last Admin: 02/28/24 22:49 Dose: 15 mg Documented By: JADONIT <So Mullins PA-C - Last Filed: 02/29/24 09:55> Labs CBC & Chem 7: 02/27/24 23:05 02/27/24 23:05 <So Mullins PA-C - Last Filed: 02/29/24 09:55> Labs: Laboratory Results - last 24 hr 02/28/24 02/28/24 02/29/24 15:48 23:18 01:19 aPTT Heparin Protocol 34.6 L 125.1 H* D 89.8 H D 02/29/24 05:59 aPTT Heparin Protocol 67.7 D <So Mullins PA-C - Last Filed: 02/29/24 09:55> Procedures Date of Service Date of Service: 02/29/24 <So Mullins PA-C - Last Filed: 02/29/24 09:55> 02/29/24 <Ryan Regalado MD - Last Filed: 02/29/24 13:36> Progress Note: A&P Assessment and plan (1) New onset a-fib: Status: Acute <So Mullins PA-C - Last Filed: 02/29/24 09:55> (2) Small bowel obstruction: Status: Acute <So Mullins PA-C - Last Filed: 02/29/24 09:55> Assessment and Plan: Much improved Denies abdominal pain Passing flatus Abdomen soft and benign She looks well Likely to DC her NG tube today Hospitalist following for new onset AFib Seen and examined independently <Ryan Regalado MD - Last Filed: 02/29/24 13:36> Assessment and Plan: SBO symptoms resolved, now with evidence of GI function and NGT output low. Will clamp NGT for 4 hrs, check residual. Unclamp sooner if develops recurrent abd pain, nausea or vomiting. Encouraged OOB/ambulation today. Hospitalists following- ?new onset a fib- on metoprolol tartate bid and heparin drip while NPO. Appreciate input. <So Mullins PA-C - Last Filed: 02/29/24 09:55> Time Spent With Patient Time: Total time managing care of this patient today ____ minutes. <So Mullins PA-C - Last Filed: 02/29/24 09:55> Quality Stroke Does the patient have a stroke diagnosis?: No <So Mullins PA-C - Last Filed: 02/29/24 09:55> VTE Prior VTE?: No <BIANCA Weinstein Last Filed: 02/29/24 09:55> VTE Risk Level:: Medical - moderate - high <BIANCA Weinstein Last Filed: 02/29/24 09:55> VTE Device Contraindication: N/A - Device Ordered <BIANCA Weinstein Last Filed: 02/29/24 09:55> VTE Drug Contraindication: N/A - Med Ordered <BIANCA Weinstein Last Filed: 02/29/24 09:55>
[2024-02-29] MEDS: Magnesium Sulfate/H2O 2 GM/50 ML PIGGYBACK IV (10:26)
[2024-02-29 14:18] LABS: PTT Heparin Drip 73.7 SEC (53-77.9)
--- NOTE | 2024-02-29 14:27 | MHC.CM.PN ---
CM assisted patient in completing HCP. Patient named agents 1) son Gunnar and 2) daughter in law Tess. Copy given to patient and son, copy placed in chart and uploaded to [employer].
[2024-02-29] MEDS: Heparin Sodium,Porcine/1/2NS 25,000 UNIT/250 ML IV.SOLN 6.13 UNIT IVCONT (15:27)
--- NOTE | 2024-02-29 15:30 | MHC.CM.PN ---
per rounds pt not dc today dc plan remains home no services
[2024-02-29] MEDS: Acetaminophen 325 MG TABLET 650 MG PO (20:49)
[2024-03-01] MEDS: Temazepam 15 MG CAPSULE PO (01:28)
[2024-03-01] MEDS: 0.9 % Sodium Chloride 1,000 ML 80 ML IVCONT (02:57)
[2024-03-01 03:01] VITALS: BP 100/57; PULSE 79; RESP 16; TEMP 36.6; O2SAT 95
[2024-03-01 06:06] LABS: Hematocrit 30.6 % (37.0-47.0); Mean Corpuscular HGB Conc 32.7 g/dl (31.0-35.0); Mean Corpuscular Hemoglobin 29.5 pg (27.0-33.0); Mean Corpuscular Volume 90.3 fL (80.0-98.0); Mean Platelet Volume 10.4 fL (9.4-12.3); Red Blood Count 3.39 X10*6/uL (4.20-5.50); Red Cell Distribution Width 13.8 % (11.0-16.0)
[2024-03-01 06:17] LABS: PTT Heparin Drip 42.4 SEC (53-77.9)
[2024-03-01 06:31] LABS: Alanine Aminotransferase 17 U/L (0-31); Albumin Level 2.7 g/dL (3.5-5.0); Alkaline Phosphatase 157 U/L (39-117); Aspartate Amino Transferase 44 U/L (5-31); Bilirubin Direct 0.5 mg/dL (0.0-0.5); Bilirubin Total 0.9 mg/dL (0.0-1.0); Blood Urea Nitrogen 11 mg/dL (9-16); Calcium 7.9 mg/dL (8.4-10.2); Carbon Dioxide 22 mmol/L (22-29); Chloride 108 mmol/L (96-108); Estimated Glomerular Filt Rate > 60; Glucose Fasting 92 mg/dL (60-99); Magnesium 1.6 mg/dL (1.6-2.6); Potassium 3.4 mmol/L (3.3-5.1); Sodium 138 mmol/L (135-145); Total Protein 5.5 g/dL (6.5-8.0)
[2024-03-01 06:33] LABS: Platelet Count 95 X10*3/uL (160-400)
[2024-03-01 06:34] LABS: Anion Gap 11 (12-20)
[2024-03-01] MEDS: Heparin Sodium,Porcine 5,000 UNIT/ML VIAL 3900 UNIT IVPUSH (07:15)
[2024-03-01 07:31] VITALS: BP 121/75; PULSE 92; RESP 16; TEMP 36.3; O2SAT 96
[2024-03-01] MEDS: Albuterol Sulfate (0.083%) 2.5 MG/3 ML VIAL.NEB INHALE (07:35)
[2024-03-01 07:36] VITALS: PULSE 92; RESP 16; O2SAT 97
--- NOTE | 2024-03-01 07:37 | P.PNGS_ITS ---
Subjective Subjective Date of Service: 03/01/24 <So Mullins PA-C - Last Filed: 03/01/24 07:39> 03/01/24 <Ryan Regalado MD - Last Filed: 03/01/24 08:07> Interval history: Tolerating liquids without nausea or vomiting. Denies abd pain. Passing flatus and moving bowels. <So Mullins PA-C - Last Filed: 03/01/24 07:39> Physical Exam 2 Vital Signs: Vital Signs: Last Vital Signs Temp 97.4 F 03/01/24 07:31 Pulse 92 03/01/24 07:36 Resp 16 03/01/24 07:36 BP 121/75 03/01/24 07:31 Pulse Ox 96 03/01/24 07:31 O2 Del Method Room Air 03/01/24 07:31 BMI result Body Mass Index 36.6 <So Mullins PA-C - Last Filed: 03/01/24 07:39> Const: General: comfortable, no acute distress and alert <So Mullins PA-C - Last Filed: 03/01/24 07:39> Orientation/consciousness: patient oriented x3 <So Mullins PA-C - Last Filed: 03/01/24 07:39> Resp: Effort & Inspection: normal respiratory effort <So Mullins PA-C - Last Filed: 03/01/24 07:39> GI: Inspection: No distended <So Mullins PA-C - Last Filed: 03/01/24 07:39> Palpation (GI): Soft to palpation, nontender and no guarding <So Mullins PA-C - Last Filed: 03/01/24 07:39> Skin: General skin exam: no rashes or lesions noted <BIANCA Weinstein Last Filed: 03/01/24 07:39> Neuro: General: patient oriented x3 and moves all extremities <BIANCA Weinstein Last Filed: 03/01/24 07:39> Objective Data Active Medications Acetaminophen (Acetaminophen 325 Mg Tablet) 650 mg PO Q8H PRN PRN Reason: ARTHRITIS PAIN Last Admin: 02/29/24 20:49 Dose: 650 mg Documented By: ELYSSA Albuterol Sulfate (Albuterol Sulfate (0.083%) 2.5 Mg/3 Ml Vial.Neb) 2.5 mg INHALE BID [facility] Last Admin: 03/01/24 07:35 Dose: 2.5 mg Documented By: DEANNA Atorvastatin Calcium (Atorvastatin Calcium 80 Mg Tablet) 80 mg PO DAILY [facility] Last Admin: 02/29/24 08:22 Dose: 80 mg Documented By: COTEMA Carbamazepine (Carbamazepine 200 Mg Tablet) 200 mg PO TID [facility] Last Admin: 02/29/24 20:50 Dose: 200 mg Documented By: ELYSSA Heparin Sodium (Porcine) 50 (units/ Sodium Chloride 5 ml) [facility] Last Admin: 03/01/24 07:36 Dose: Not Given Documented By: EUSEBIO Non-Admin Reason: Heparin infusion running. Ergocalciferol (Ergocalciferol (Vitamin D2) 1,250 Mcg Capsule) 1,250 mcg PO LEYVA [facility] Escitalopram Oxalate (Escitalopram Oxalate 20 Mg Tablet) 20 mg PO DAILY [facility] Last Admin: 02/29/24 08:22 Dose: 20 mg Documented By: COTEMA Furosemide (Furosemide 20 Mg Tablet) 20 mg PO DAILY [facility]; Protocol Last Admin: 02/29/24 08:21 Dose: 20 mg Documented By: COTEMA Heparin Sodium (Porcine) (Heparin Sodium,Porcine 5,000 Unit/Ml Vial) 3,900 unit 40 unit/kg (3900 unit) IVPUSH PROTOCOL BOLUS PRN; Protocol PRN Reason: 40 unit/kg - Heparin Protocol Last Admin: 03/01/24 07:15 Dose: 3,900 unit Documented By: EUESBIO Heparin Sodium (Porcine) (Heparin Sodium,Porcine 5,000 Unit/Ml Vial) 7,700 unit 80 unit/kg (7700 unit) IVPUSH PROTOCOL BOLUS PRN; Protocol PRN Reason: 80 unit/kg - Heparin Protocol Heparin Sodium/Sodium Chloride (Heparin Sodium,Porcine/1/2ns) 25,000 unit in 250 mls @ 0 mls/hr IVCONT .Q0M [facility]; Protocol Last Titration: 03/01/24 07:19 Dose: 8.33 units/kg/hr, 8.06 mls/hr Documented By: EUSEBIO Co-signed By: DAVID Sodium Chloride (Ns) 1,000 mls @ 80 mls/hr IVCONT .[id number] [facility] Last Admin: 03/01/24 02:57 Dose: 80 mls/hr Documented By: ELYSSA Lactic Acid (Ammonium Lactate 12 % Cream 140 Gm Tube) 1 appl TOPICAL BID [facility]; Protocol Last Admin: 02/29/24 20:46 Dose: 1 appl Documented By: ELYSSA Metoprolol Tartrate (Metoprolol Tartrate 12.5 Mg Halftab) 12.5 mg PO BID [facility]; Protocol Last Admin: 02/29/24 20:50 Dose: 12.5 mg Documented By: ELYSSA Morphine Sulfate (Morphine Sulfate 4 Mg/Ml Cartridge) 3 mg IVPUSH Q3H PRN; Protocol PRN Reason: Pain, Severe (Pain Scale 7-10) Multivitamins/Vitamin C (Multivitamin Tablet) 1 tab PO DAILY [facility] Last Admin: 02/29/24 08:22 Dose: 1 tab Documented By: COTEMA Omeprazole (Omeprazole 20 Mg Capsule.Dr) 20 mg PO BID [facility] Last Admin: 02/29/24 20:50 Dose: 20 mg Documented By: ELYSSA Ondansetron HCl (Ondansetron Hcl 4 Mg/2 Ml Vial) 4 mg IVPUSH Q6H PRN PRN Reason: nausea Quetiapine Fumarate (Quetiapine Fumarate 100 Mg Tablet) 100 mg PO BID [facility] Last Admin: 02/29/24 20:49 Dose: 100 mg Documented By: ELYSSA Sodium Chloride (0.9 % Sodium Chloride Flush 3 Ml Syringe) 3 ml IVFLUSH QSHIFT [facility] Last Admin: 02/29/24 23:01 Dose: Not Given Documented By: ELYSSA Non-Admin Reason: IV Running Temazepam (Temazepam 15 Mg Capsule) 15 mg PO BEDTIME PRN PRN Reason: Sleep Last Admin: 03/01/24 01:28 Dose: 15 mg Documented By: ELYSSA <So Mullins PA-C - Last Filed: 03/01/24 07:39> Labs CBC & Chem 7: 03/01/24 05:49 03/01/24 05:49 <So Mullins PA-C - Last Filed: 03/01/24 07:39> Labs: Laboratory Results - last 24 hr 02/29/24 03/01/24 14:03 05:49 MCV 90.3 MCH 29.5 MCHC 32.7 RDW 13.8 Plt Count 95 L D MPV 10.4 Absolute Nucleated RBC 0.000 Nucleated RBC % (auto) 0.0 aPTT Heparin Protocol 73.7 42.4 L D Anion Gap 11 L Estim Creat Clear Calc 80.0 Estimated GFR > 60 Fasting Glucose 92 Calcium 7.9 L D Magnesium 1.6 Total Bilirubin 0.9 Direct Bilirubin 0.5 AST 44 H ALT 17 Alkaline Phosphatase 157 H Total Protein 5.5 L Albumin 2.7 L <So Mullins PA-C - Last Filed: 03/01/24 07:39> Procedures Date of Service Date of Service: 03/01/24 <So Mullins PA-C - Last Filed: 03/01/24 07:39> 03/01/24 <Ryan Regalado MD - Last Filed: 03/01/24 08:07> Progress Note: A&P Assessment and plan (1) New onset a-fib: Status: Acute <So Mullins PA-C - Last Filed: 03/01/24 07:39> Assessment and Plan: denies abdl pain has been tolerating clears passing flatus, had BMs abd soft ok to advance diet as tolerated seen and examined independently <Ryan Regalado MD - Last Filed: 03/01/24 08:07> (2) Small bowel obstruction: Status: Acute <So Mullins PA-C - Last Filed: 03/01/24 07:39> Assessment and Plan: SBO resolved. Abd remains benign, good GI function. Will advance to solid diet. Can transition to PO anticoag. <So Mullins PA-C - Last Filed: 03/01/24 07:39> Time Spent With Patient Time: Total time managing care of this patient today ____ minutes. <BIANCA Weinstein Last Filed: 03/01/24 07:39> Quality Stroke Does the patient have a stroke diagnosis?: No <BIANCA Weinstein Filed: 03/01/24 07:39> VTE Prior VTE?: No <So Mullins PA-C - Last Filed: 03/01/24 07:39> VTE Risk Level:: Medical - moderate - high <So Mullins PA-C - Last Filed: 03/01/24 07:39> VTE Device Contraindication: N/A - Device Ordered <So Mullins PA-C - Last Filed: 03/01/24 07:39> VTE Drug Contraindication: N/A - Med Ordered <BIANCA Weinstein Last Filed: 03/01/24 07:39>
[2024-03-01 08:40] VITALS: BP 121/69; PULSE 84
[2024-03-01 08:44] VITALS: BP 121/69
[2024-03-01] MEDS: Escitalopram Oxalate 20 MG TABLET PO (08:44)
[2024-03-01] MEDS: Ammonium Lactate 12 % Cream 140 GM TUBE 1 APPL TOPICAL (08:44)
[2024-03-01] MEDS: Furosemide 20 MG TABLET PO (08:44)
[2024-03-01] MEDS: 0.9 % Sodium Chloride Flush 3 ML SYRINGE IVFLUSH (08:44)
[2024-03-01] MEDS: carBAMazepine 200 MG TABLET PO ×2 (08:45→15:09)
[2024-03-01] MEDS: QUEtiapine Fumarate 100 MG TABLET PO (08:45)
[2024-03-01] MEDS: Multivitamin TABLET 1 TAB PO (08:45)
[2024-03-01] MEDS: Metoprolol Tartrate 12.5 MG HALFTAB PO (08:45)
[2024-03-01] MEDS: Omeprazole 20 MG CAPSULE.DR PO (08:45)
[2024-03-01] MEDS: Atorvastatin Calcium 80 MG TABLET PO (08:45)
[2024-03-01] MEDS: Apixaban 5 MG TABLET PO (10:26)
--- NOTE | 2024-03-01 11:03 | P.PNIM_ITS ---
Subjective Subjective Date of Service: 03/01/24 Interval History: seen and evaluated feels better overall tolerating diet passing gas Review of Systems Review of Systems: Yes all other systems are reviewed and are negative Physical Exam 2 Vital Signs: Vital Signs: Last Vital Signs Temp 97.4 F 03/01/24 07:31 Pulse 84 03/01/24 08:40 Resp 16 03/01/24 07:36 BP 121/69 03/01/24 08:44 Pulse Ox 96 03/01/24 07:31 O2 Del Method Room Air 03/01/24 07:31 BMI result Body Mass Index 36.6 Const: Other: Constitutional : interactive, not in distress Cardiovascular : no JVP, no lower extremity edema Respiratory : bilateral chest movement, not in resp distress Gastrointestinal: soft, lax, Non tender Skin : Warm, Dry Neurological : Alert & oriented , No focal deficit Objective Data Active Medications Acetaminophen (Acetaminophen 325 Mg Tablet) 650 mg PO Q8H PRN PRN Reason: ARTHRITIS PAIN Last Admin: 02/29/24 20:49 Dose: 650 mg Documented By: ELYSSA Albuterol Sulfate (Albuterol Sulfate (0.083%) 2.5 Mg/3 Ml Vial.Neb) 2.5 mg INHALE BID [facility] Last Admin: 03/01/24 07:35 Dose: 2.5 mg Documented By: DEANNA Apixaban (Apixaban 5 Mg Tablet) 5 mg PO BID [facility] Last Admin: 03/01/24 10:26 Dose: 5 mg Documented By: EUSEBIO Atorvastatin Calcium (Atorvastatin Calcium 80 Mg Tablet) 80 mg PO DAILY [facility] Last Admin: 03/01/24 08:45 Dose: 80 mg Documented By: EUSEBIO Carbamazepine (Carbamazepine 200 Mg Tablet) 200 mg PO TID [facility] Last Admin: 03/01/24 08:45 Dose: 200 mg Documented By: EUSEBIO Ergocalciferol (Ergocalciferol (Vitamin D2) 1,250 Mcg Capsule) 1,250 mcg PO [facility] Escitalopram Oxalate (Escitalopram Oxalate 20 Mg Tablet) 20 mg PO DAILY [facility] Last Admin: 03/01/24 08:44 Dose: 20 mg Documented By: EUSEBIO Furosemide (Furosemide 20 Mg Tablet) 20 mg PO DAILY [facility]; Protocol Last Admin: 03/01/24 08:44 Dose: 20 mg Documented By: EUSEBIO Sodium Chloride (Ns) 1,000 mls @ 80 mls/hr IVCONT .[id number] [facility] Last Infusion: 03/01/24 10:21 Dose: 0 mls/hr Documented By: EUSEBIO Lactic Acid (Ammonium Lactate 12 % Cream 140 Gm Tube) 1 appl TOPICAL BID [facility]; Protocol Last Admin: 03/01/24 08:44 Dose: 1 appl Documented By: EUSEBIO Metoprolol Tartrate (Metoprolol Tartrate 12.5 Mg Halftab) 12.5 mg PO BID [facility]; Protocol Last Admin: 03/01/24 08:45 Dose: 12.5 mg Documented By: EUSEBIO Morphine Sulfate (Morphine Sulfate 4 Mg/Ml Cartridge) 3 mg IVPUSH Q3H PRN; Protocol PRN Reason: Pain, Severe (Pain Scale 7-10) Multivitamins/Vitamin C (Multivitamin Tablet) 1 tab PO DAILY [facility] Last Admin: 03/01/24 08:45 Dose: 1 tab Documented By: EUSEBIO Omeprazole (Omeprazole 20 Mg Capsule.Dr) 20 mg PO BID [facility] Last Admin: 03/01/24 08:45 Dose: 20 mg Documented By: EUSEBIO Ondansetron HCl (Ondansetron Hcl 4 Mg/2 Ml Vial) 4 mg IVPUSH Q6H PRN PRN Reason: nausea Quetiapine Fumarate (Quetiapine Fumarate 100 Mg Tablet) 100 mg PO BID [facility] Last Admin: 03/01/24 08:45 Dose: 100 mg Documented By: EUSEBIO Sodium Chloride (0.9 % Sodium Chloride Flush 3 Ml Syringe) 3 ml IVFLUSH QSHIFT [facility] Last Admin: 03/01/24 08:44 Dose: 3 ml Documented By: EUSEBIO Temazepam (Temazepam 15 Mg Capsule) 15 mg PO BEDTIME PRN PRN Reason: Sleep Last Admin: 03/01/24 01:28 Dose: 15 mg Documented By: ELYSSA Labs 03/01/24 05:49 03/01/24 05:49 Labs: Laboratory Results - last 24 hr 02/29/24 03/01/24 14:03 05:49 MCV 90.3 MCH 29.5 MCHC 32.7 RDW 13.8 Plt Count 95 L D MPV 10.4 Absolute Nucleated RBC 0.000 Nucleated RBC % (auto) 0.0 aPTT Heparin Protocol 73.7 42.4 L D Anion Gap 11 L Estim Creat Clear Calc 80.0 Estimated GFR > 60 Fasting Glucose 92 Calcium 7.9 L D Magnesium 1.6 Total Bilirubin 0.9 Direct Bilirubin 0.5 AST 44 H ALT 17 Alkaline Phosphatase 157 H Total Protein 5.5 L Albumin 2.7 L Assessment and Plan (1) New onset a-fib: Status: Acute Plan 68F PMH htn, hld, cervical radiculopathy, CAD, colon ca, presented with SBO, now with ?new onset afib SBO plan per surgery tolerating PO , advanced to regular afib of new onset echo - EF >70%, LAE, lvh (see report) controlled on metoprolol tartate 12.5mg bid dc iv heparin drip - start eliquis DC Plavix htn metoprolol CAD holding DAPT in case of surgery can hold off on plavix indefinitely as now on anticoagulation, continue asa statin dvt prophylaxis - on iv heparin full code Quality Stroke Does the patient have a stroke diagnosis?: No VTE Prior VTE?: No VTE Risk Level:: Medical - moderate - high VTE Device Contraindication: N/A - Device Ordered VTE Drug Contraindication: N/A - Med Ordered
[2024-03-01 11:43] VITALS: PULSE 117; O2SAT 96
--- NOTE | 2024-03-01 13:28 | PM.EVENT ---
Event Note Date of Service: 03/01/24 Event Note: States she feels well well tolerating diet Has BMs and flatus Denies abdominal pain Abdomen soft and benign, nontender She has been ambulating Okay to DC home She says she is familiar with her small-bowel obstruction as she has had 5 episodes in the past She is to follow up with her primary care physician because of her new onset atrial fibrillation She has been started on Eliquis Discussed with hospitalist service Time Spent With Patient Time: Total time managing care of this patient today ____ minutes.
--- NOTE | 2024-03-01 13:38 | MHC.CM.PN ---
IMM 03/01/24 Patient is discharged to home self care. She has arranged for transportation home.
--- NOTE | 2024-03-01 15:25 | HO.REMOVAL ---
Removal of PICC/Midline Removal of PICC/Midline: Removal of PICC/Midline: 1. Date: 03/01/24 2. Reason removed: No longer needed 3. Inserted length: 10 CM 4. Removed length: 10 CM intact midline 5. A dressing was placed over the site upon removal. No edema or bleeding at the site.
--- NOTE | 2024-03-05 11:47 | PM.DS ---
DS: Providers Provider Date of Service: 03/01/24 Date of admission: 02/28/24 02:19 Date of discharge: 03/01/24 Primary care physician: Molly Mcgowan MD Attending physician on admission: Ryan Regalado Consults: 02/28/24 02:24 Consult to Hospitalist Routine Comment: Consulting Provider: Hospitalist Reason For Exam: HTN, CAD 02/28/24 09:09 Consult to Cardiology Routine Consulting Provider: [facility] Cardiovascular Services Reason for consultation: new onset afib Attending physician on discharge: Ryan Regalado DS: Diagnosis Discharge Diagnosis (1) New onset a-fib: Status: Acute DS: Summary Hospital Course Hospital Course: HPI AT ADMISSION: Deidre To is a 68 year old female multiple previous abdominal surgeries, admitted this morning for abdominal pain and vomiting. She says that this started last night. She describes the pain as diffuse. She used to live in [place] but has moved here to be closer to her son who now takes care of her. She says that she has had 5 admissions in the hospital for small bowel obstruction since her surgeries. She says that she has NG tube each time this normally resolves after a few days. She has a history of sigmoid resection for colon cancer in 2017 done in [place]. She says she had chemotherapy after that. She had an ileostomy at that time as well and she had this reversed eventually. She has a history of cholecystectomy. She had a gastric band placed in the this past. She has a history of coronary disease and had 2 vessel bypass 5 years ago. Her CAT scan shows dilated small bowel loops with a possible transition point in the pelvis consistent with partial small-bowel obstruction. She reports multiple episodes of SBOs in the past in [place]. She had an NG tube placed early this morning with large amounts of drainage on initial placement. She currently states that her abdominal pain is much improved. She says that she has had problems with memory recently. She does not recall when her last flatus or BM was. HOSPITAL COURSE: She was admitted to the surgical service for further treatment of the SBO. NGT was placed in the ED and this was continued to suction for bowel decompression. She was continued on IVF, PRN IV analgesics and antiemetics. She had an uncomplicated hospital course. She had very little NGT output the following day and her symptoms had resolved. Her NGT was clamped and she was reassessed and had little residual and remained asymptomatic. She had also began to pass flatus. The NGT was discontinued and she was started on clear liquids. Her diet was advanced the following day to solids. She was tolerating a solid diet without any abdominal pain, nausea or vomiting and was moving her bowels with a benign abdomen on the day of discharge. She was discharged to home on 03/01/24 in stable condition. New onset A fib She was found to be in atrial fibrillation on the monitor in the ED and confirmed on EKG which was new. Hospitalist and cardiology consult was obtained for further management. Her rate appeared to be controlled and her home medication of metoprolol 12.5 mg BID was continued. She was started on heparin drip per protocol. Echo was performed which showed EF >70%, LAE, lvh (see report). Heparin drip was continued until she could tolerate oral intake and she was transitioned to Xarelto 20mg PO every night. Given her anticoagulation, the plavix was discontinued. 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 Status at Discharge Functional status at discharge: independent ambulation Overall status at discharge: patient is progressing back to baseline Time Attestation Discharge Coordination Time (in mins): 40 Quality: Safe Use of Opioids Does Pt have an Active Cancer Diagnosis on the Problem List?: No Quality: Stroke Does the patient have a stroke diagnosis?: No Physical Exam Vital Signs: Vital Signs: Last Vital Signs Temp 97.4 F 03/01/24 07:31 Pulse 117 H 03/01/24 11:43 Resp 16 03/01/24 07:36 BP 121/69 03/01/24 08:44 Pulse Ox 96 03/01/24 11:43 O2 Del Method Room Air 03/01/24 07:31 BMI result Body Mass Index 36.6 Const: General: comfortable, no acute distress and alert GI: Inspection: No distended Palpation (GI): Soft to palpation and nontender Percussion: Yes normal to percussion Skin: General skin exam: no rashes or lesions noted Discharge Plan Discharge Anticipated Discharge Date/Time: 03/01/24 13:27 Patient Disposition: Home, Self-Care Discharge Diagnosis: SBO, a fib Referrals: Molly Mcgowan MD [Primary Care Provider] - 1 Week Discharge Medications: New Xarelto 20 mg tablet 20 mg PO QPM Qty: 90 0RF Rx Instructions: must administer with evening meal Continued atorvastatin 80 mg tablet 80 mg PO DAILY Qty: 90 1RF ergocalciferol (vitamin D2) 1,250 mcg (50,000 unit) capsule 1,250 mcg PO LEYVA Qty: 13 0RF carbamazepine 200 mg Tablet 200 mg PO TID quetiapine 200 mg Tablet Extended Release 24 Hr 200 mg PO BEDTIME acetaminophen 325 mg Tablet 650 mg PO Q8H PRN (Reason: ARTHRITIS PAIN) aspirin 81 mg Tablet,Delayed Release (Dr/Ec) 81 mg PO DAILY furosemide 20 mg Tablet 20 mg PO DAILY Probiotic 3 billion cell Capsule 3,000 mmu cells PO DAILY Rx Instructions: administer with a meal multivitamin Tablet 1 tab PO DAILY albuterol sulfate 2.5 mg /3 mL (0.083 %) Solution For Nebulization 2.5 mg INHALATION BID pantoprazole 40 mg Tablet,Delayed Release (Dr/Ec) 40 mg PO BID omega-3 fatty acids-fish oil 684-1,200 mg Capsule,Delayed Release(Dr/Ec) 1 cap PO DAILY ammonium lactate 12 % cream 1 appl topical BID cyclobenzaprine 10 mg tablet 10 mg PO BEDTIME PRN (Reason: Pain) metoprolol tartrate 25 mg tablet 12.5 mg PO BID citalopram 40 mg tablet 40 mg PO DAILY temazepam 30 mg capsule 15 mg PO BEDTIME PRN (Reason: Sleep) Discontinued clopidogrel [Plavix] 75 mg tablet 75 mg PO DAILY Discharge Orders: Discharge Order (Routine); Ordered 03/01/24 Ordered By: Ryan Regalado Diet: Advance to usual diet Activity on Discharge: No heavy lifting Stand Alone Forms: Patient Portal Discharge page Print Language: Tamazight Activity Restrictions/Additional Instructions: Follow up with your PCP doctor regarding your new atrial fibrillation. Call Your Doctor If: ? ? -Your temperature exceeds 101.5? F? ? ? -You experience excessive pain or swelling ? ? -You have an unexpected reaction to medication ? ? -You experience continued vomiting/nausea Care Plan Goals: Return to baseline health and resume normal activities. Health Concerns: hx of colon cancer CAD new onset a fib Plan of Treatment: conservative management of SBO anticoagulation for a fib Assessment: Improved Discharge Date/Time: 03/01/24 15:59
== END 2024-03-01 15:59 | disposition home or self-care (01) | DRG 389 ==
LOC: HO.ED 22:14 → HO.EDOVER 02-28 02:29 → HO.S3 02-28 07:23
PROVIDERS: Internal Medicine; Physician Assistant; Admitting Provider Surgery; Emergency Provider Internal Medicine; PCP Internal Medicine; Visit Provider Surgery
DX: K56.609 Unspecified intestinal obstruction, unspecified as to partial versus complete obstruction (principal); I47.20 Ventricular tachycardia, unspecified; I25.10 Atherosclerotic heart disease of native coronary artery without angina pectoris; I10 Essential (primary) hypertension; E78.5 Hyperlipidemia, unspecified; F39 Unspecified mood [affective] disorder; I48.91 Unspecified atrial fibrillation; Z95.1 Presence of aortocoronary bypass graft; Z85.038 Personal history of other malignant neoplasm of large intestine; Z87.891 Personal history of nicotine dependence; Z79.82 Long term (current) use of aspirin; Z79.899 Other long term (current) drug therapy
CPT/HCPCS: 36410; 36415; 71045; 72141; 74176; 80048; 80053; 80076; 83605; 83735; 84484; 85025; 85027; 85610; 85730; 93005; 93306; 94640; 97162; 99285; C1751; J1642; J1644; J2270; J2405; J3475; J7120

== ENCOUNTER → 2024-02-27 22:07 | Outpatient (BNV) | payer MEDICARE, SELFPAY | PROVIDERS: Admitting Provider Surgery; Emergency Provider Internal Medicine; PCP Internal Medicine; Visit Provider Internal Medicine | DX: R07.9 Chest pain, unspecified (principal); I48.91 Unspecified atrial fibrillation; I44.4 Left anterior fascicular block | CPT/HCPCS: 93010 ==

== ENCOUNTER → 2024-02-28 02:19 | Outpatient (BNV) | payer MEDICARE, SELFPAY | PROVIDERS: Admitting Provider Surgery; Emergency Provider Internal Medicine; PCP Internal Medicine; Visit Provider Internal Medicine | DX: I48.91 Unspecified atrial fibrillation (principal); K56.609 Unspecified intestinal obstruction, unspecified as to partial versus complete obstruction; I25.10 Atherosclerotic heart disease of native coronary artery without angina pectoris; I35.2 Nonrheumatic aortic (valve) stenosis with insufficiency; I34.81 Nonrheumatic mitral (valve) annulus calcification | CPT/HCPCS: 93010; 93306; 99223 ==

== ENCOUNTER → 2024-02-28 02:19 | Outpatient (BNV) | payer MEDICARE, SELFPAY | PROVIDERS: Admitting Provider Surgery; Emergency Provider Internal Medicine; PCP Internal Medicine; Visit Provider Physician Assistant | DX: I48.91 Unspecified atrial fibrillation (principal) | CPT/HCPCS: 99222; 99231; 99232 ==

== ENCOUNTER → 2024-02-28 02:19 | Outpatient (BNV) | payer MEDICARE, SELFPAY | PROVIDERS: Admitting Provider Surgery; Emergency Provider Internal Medicine; PCP Internal Medicine; Visit Provider Surgery | DX: K56.609 Unspecified intestinal obstruction, unspecified as to partial versus complete obstruction (principal); I48.91 Unspecified atrial fibrillation | CPT/HCPCS: 99223; 99232; 99239 ==

== ENCOUNTER 2024-03-13 09:26 | Outpatient (AMB) | payer MEDICARE, SELFPAY ==
--- NOTE | 2024-03-13 09:56 | MHC.PC.OV ---
Vital Signs 03/13/24 09:57 Height 5 ft Weight 195 lb BMI 38.1 BP 102/80 Blood Pressure Location Lt brachial Position Sitting Pulse 96 Pulse Source Pulse Oximeter Pulse Oximetry (%) 95 Oxygen Delivery Method Room Air Intake Visit Reasons: [facility] Intake Note: Pt is here today for her [facility] Allergies No Known Allergies Allergy (Verified 04/04/24 13:50) Tobacco use date assessed: 03/13/24 Fall risk assessment: 1 Fall in past year Last assessed Fall Risk: 03/13/24 Dental Screening Dental Screen Date: 03/13/24 Did you have a dental visit in the last 12 months?: No Was dental information given to patient?: Patient declined HPI [facility] HPI Details 68 year old female with history of colon cancer s/p multiple previous abdominal surgeries, history of coronary disease and had 2 vessel bypass 5 years ago recently admitted for acute abdominal pain and vomitig . CT scan showed partial small-bowel obstruction, treated with placement of an NG tube with large amounts of drainage on initial placement, and resolution of symptomss. Her diet was advanced and tolerated solid diet without any abdominal pain, nausea or vomiting and was moving her bowels with a benign abdomen on the day of discharge. She was discharged to home on 03/01/24 in stable condition. She was found to be in atrial fibrillation on the monitor in the ED and confirmed on EKG . Cardiology consult obtained ,continued on metoprolol 12.5 mg BID Echo was performed which showed EF >70%, LAE, lvh . Shwas placed on Xarelto 20mg PO every night, plavix was discontinued. She has been feeling well since discharge, except for some gait unsteadiness, and has an appointment already with cardiology scheduled for 05/08/2024. [facility] Medical History Unsteady gait Thrombocytopenia Anemia Atrial fibrillation Cervical radiculopathy due to degenerative joint disease of spine Essential hypertension Hyperlipidemia History of radius fracture Former cigarette smoker Degenerative disc disease, cervical CAD (coronary artery disease) Hx of colon cancer, stage III Surgical History History of esophagogastroduodenoscopy (EGD) History of surgery on right wrist History of tonsillectomy History of resection of small bowel History of parotidectomy History of lysis of adhesions Hx of laparoscopic adjustable gastric banding History of exploratory laparotomy Hx laparoscopic cholecystectomy Hx of colonoscopy History of cardiac catheterization History of bunionectomy History of appendectomy History of cervical discectomy History of cervical corpectomy History of fusion of cervical spine Hx of two vessel coronary artery bypass graft Family History Sister Substance use disorder Insulin dependent type 1 diabetes mellitus Mother Colon cancer Breast cancer Coronary artery disease High cholesterol Essential hypertension Social History Household Members: None Housing: Apartment Do you presently have visiting nurse or other home services: No Patient Tobacco Use Status: Former Tobacco user e-Cigarette/Vaping Use: Never Used service: No Current occupational status: retired Cognitive needs: No Hearing needs: No Vision needs: Yes Questionnaire Thrive Questionnaire Date Thrive assessed: 02/28/24 REY-7 AMB Questionnaire REY-7 Date REY - 7 assessed: 02/06/24 Source: Developed by Drs. Philipp Najera, Nga Sage, Benjamin Berman and colleagues, with an educational ashli from [employer]. Review of Systems Const Denies fatigue, Denies fever(s), Denies headache(s) and Denies weakness Eyes Denies change in vision ENT Denies dizziness, Denies headache(s), Denies nasal congestion and Denies sore throat Card Denies chest pain, Denies lightheadedness, Denies palpitations and Denies dyspnea Resp Denies chest congestion, Denies cough, Denies dyspnea and Denies wheezing GI Denies abdominal pain, Denies change in bowel habits and Denies heartburn Denies hematuria, Denies urinary frequency, Denies dysuria and Denies urinary urgency Musc Denies joint swelling and Reports stiffness Neuro Denies dizziness, Denies headache(s) and Denies weakness Psych Reports as per HPI Endo Denies fatigue, Denies polydipsia, Denies polyuria and Denies palpitations Yonas/Lymph Denies easy bleeding and Reports easy bruising Aller/Immun Denies seasonal rhinorrhea and Denies wheezing Physical exam (Primary Care) Vital Signs: Last Vital Signs Pulse 96 03/13/24 09:57 BP 102/80 03/13/24 09:57 Pulse Ox 95 03/13/24 09:57 Oxygen Delivery Method Room Air 03/13/24 09:57 BMI result Body Mass Index 38.1 Tobacco/Smoking Status: Tobacco use Status Tobacco use date assessed 03/13/24 03/13/24 09:59 Patient Tobacco Use Status Former Tobacco user 03/13/24 09:59 e-Cigarette/Vaping Use Never Used 03/13/24 09:59 Thrive Assessment: Date of Thrive Assessment Date Thrive assessed 02/28/24 03/13/24 09:59 Const General: comfortable, no acute distress and alert Orientation/consciousness: patient oriented x3 HENMT Ears: external ears normal General nose exam: Normal external nose present and No nasal discharge present Mouth: Normal oral and palatal mucosa present, oropharynx normal and moist mucous membranes Eyes General: appearance normal, both eyes and all related structures Neck Neck: Yes full ROM, Yes no lymphadenopathy and Yes supple Resp Effort & Inspection: normal respiratory effort and able to speak in complete sentences Auscultation: clear to auscultation bilaterally Cardio Rhythm: abnormal rhythm irregularly irregular GI Palpation (GI): Soft to palpation, nontender and no masses Auscultation: normal bowel sounds Back/Spine/Pelvis Back: No back tenderness Skin General skin exam: no rashes or lesions noted Neuro General: patient oriented x3, moves all extremities, Normal light touch and pain sensation and no focal motor deficits Cranial nerves: Yes CN's II-XII intact bilaterally Cognition (Neuro): normal cognition Extrem General: Yes full ROM, Yes no joint enlargement, Yes no clubbing, cyanosis or edema and Yes no calf tenderness Psych Appearance: grossly normal and well kempt Mental Status: mental status grossly normal Speech and movement: Normal speech and movement present Affect: normal affect Attitude: cooperative Thought process: Normal thought process present Results Reviewed Results Reviewed: Name: Deidre To Age/Sex: 68/F : 1955 Unit#: [id number] Attend Dr: Ryan Regalado MD Re02/28/24 Status: DIS IN Location: [facility] 351-1 Disch: 03/01/24 SPEC : [id number] PABLITO: 03/01/24 STATUS: COMP REQ : [id number] RECD: 03/01/[address]: Roni Dan MD COMP: 03/01/24 ENTERED: 03/01/[address]: Molly Mcgowan MD, Francis MD ORDERED: CBC No Diff Test Result Flag Reference WBC 4.0 L 4.8-10.8 X10*3/uL RBC 3.39 L 4.20-5.50 X10*6/uL HGB 10.0 # L 12.0-16.0 g/dl HCT 30.6 L 37.0-47.0 % MCV 90.3 80.0-98.0 fL MCH 29.5 27.0-33.0 pg MCHC 32.7 31.0-35.0 g/dl RDW 13.8 11.0-16.0 % PLT 95 # L 160-400 X10*3/uL Confirmed by smear. MPV 10.4 9.4-12.3 fL NRBC Pct Auto 0.0 0.0-0.2 /100WBC NRBC Abs Auto 0.000 0.0-0.012 X10*3/uL Name: Deidre To Age/Sex: 68/F : 1955 Unit#: [id number] Attend Dr: Ryan Regalado MD Re02/28/24 Status: DIS IN Location: [place] [address] Disch: 03/01/24 SPEC : [id number] PABLITO: 03/01/24 STATUS: COMP REQ : [id number] RECD: 03/01/[address]: Roni Dan MD COMP: 03/01/24 ENTERED: 03/01/[address]: Molly Mcgowan MD, Francis MD ORDERED: Liver Panel, Met Prof Fast, MG Test Result Flag Reference Sodium 138 135-145 mmol/L Potassium 3.4 3.3-5.1 mmol/L CL 108 96-108 mmol/L CO2 22 22-29 mmol/L Gap 11 L 12-20 BUN 11 9-16 mg/dL Creat 0.76 0.5-1.4 mg/dL Estimated CrCl 80.0 Provided height and weight: 162.56 cm, 96.8 kg. eGFR (calculated from the MDRD study equation) and eCrCl (calculated from the Cockcroft-Gault equation) are based on different parameters and may not yield comparable results. If eCrCl result is absurd, please check patient's height/weight. EGFR > 60 NOTE: For -[place] individuals, multiply the result by 1.210. Chronic Kidney Disease: Estimated GFR < 60 mL/min/1.73m2 Severe Kidney Disease: Estimated GFR < 15 mL/min/1.73m2 FBS 92 60-99 mg/dL CA 7.9 # L 8.4-10.2 mg/dL Magnesium 1.6 1.6-2.6 mg/dL Total Bili 0.9 0.0-1.0 mg/dL Direct Bili 0.5 0.0-0.5 mg/dL AST (GOT) 44 H 5-31 U/L ALT (GPT) 17 0-31 U/L Protein, Total 5.5 L 6.5-8.0 g/dL Alb 2.7 L 3.5-5.0 g/dL Alk Phos 157 H 39-117 U/L Assessment and Plan Assessment & Plan (1) New onset a-fib: Code(s): I48.91 - Unspecified atrial fibrillation Plan: Patient currently taking 12.5 mg metoprolol, also taking 20 mg of rivaroxaban. Patient has 1st cardiology appointment in 1 month (2) Hypocalcemia: Code(s): E83.51 - Hypocalcemia Plan: Likely due to recent episodes of nausea and vomiting due to small-bowel obstruction. Comprehensive metabolic panel ordered (3) Unsteady gait: Code(s): R26.81 - Unsteadiness on feet Plan: Referred to physical therapy (4) Anemia: Comment: Most recent hemoglobin 12.3 and HCT is 36.2 Code(s): D64.9 - Anemia, unspecified Qualifiers: Anemia type: unspecified type Qualified Code(s): D64.9 - Anemia, unspecified Plan: Will check iron profile and CBC again in 2 weeks Orders: Orders Comprehensive [place]. Panel Fast 2 Weeks I48.91 - Unspecified atrial fibrillation, D64.9 - Anemia, unspecified, D69.6 - Thrombocytopenia, unspecified, E83.51 - Hypocalcemia IRON PROFILE 2 Weeks I48.91 - Unspecified atrial fibrillation, D64.9 - Anemia, unspecified, D69.6 - Thrombocytopenia, unspecified, E83.51 - Hypocalcemia PT Evaluation and Treatment 03/13/24 R26.81 - Unsteadiness on feet AMB EKG-In Office 03/13/24 I48.91 - Unspecified atrial fibrillation Complete Blood Count Auto Diff 2 Weeks I48.91 - Unspecified atrial fibrillation, D64.9 - Anemia, unspecified, D69.6 - Thrombocytopenia, unspecified, E83.51 - Hypocalcemia Medications: Refilled rivaroxaban (Xarelto) must administer with evening meal 20 mg PO QPM 90 tabs 1RF Coding Level of Care Code Est Pt Level 4 (03622) Diagnoses New onset a-fib I48.91 Hypocalcemia E83.51 Unsteady gait R26.81 Anemia, unspecified type D64.9 Anemia type: unspecified type
[2024-03-13 09:57] VITALS: BP 102/80; PULSE 96; O2SAT 95; BMI 38.1
== END 2024-03-13 11:03 | disposition home or self-care (01) ==
PROVIDERS: PCP Internal Medicine; Visit Provider Internal Medicine
DX: I48.91 Unspecified atrial fibrillation (principal); E83.51 Hypocalcemia; R26.81 Unsteadiness on feet; D64.9 Anemia, unspecified
CPT/HCPCS: 99214

== ENCOUNTER 2024-03-22 12:23 | Outpatient (REF) | payer MEDICARE, SELFPAY ==
--- NOTE | ~2024-03-22 | MM_ITS ---
EXAMINATION: BONE DENSITOMETRY CLINICAL INDICATION: Encounter for screening mammogram for malignant neoplasm of breast. COMPARISON: This is the patient's baseline examination. TECHNIQUE: Using a Nexis Vision DXA System (software version: 13.1) manufactured by [employer], dual-energy x-ray absorptiometry was performed of the lumbar spine and left hip. The images are of good technical quality. Summary results are attached. FINDINGS: LEFT FEMUR, NECK: BMD 1.109 g/cm2, Z-score 1.6, T-score 0.5, normal. LEFT FEMUR, TOTAL: BMD 1.221 g/cm2, Z-score 2.5, T-score 1.7, normal. AP SPINE L1-L3 (excluding L4): The data of L1-L4 has been changed to exclude the L4 vertebral body, because degenerative sclerosis at this level may cause overestimation of lumbar spine density. BMD 1.285 g/cm2, Z-score 1.8, T-score 1.0, normal. IDENTIFIED RISK FACTORS: History of fracture (adult), menopause. HISTORY OF FRACTURE: Wrist. MEDICATIONS: Vitamin D. MM/XR DEXA axial skeleton IMPRESSION: 1. DIAGNOSIS: Normal bone density based on the lowest T-score value of 0.5 in the femoral neck applying World Health Organization criteria. 2. 10-YEAR FRACTURE RISK PREDICTION, FRAX: According to the guidelines, FRAX calculation should only be performed on patients in the osteopenia bone density category. Therefore, FRAX was not performed on this patient.? 3. Treatment Recommendations: NOF guidelines recommend consideration for treatment in postmenopausal women and men age 50 and older presenting with the following: -A hip or vertebral (clinical or morphometric) fracture. -T-score less than or equal to -2.5 at the femoral neck or spine after appropriate evaluation to exclude secondary causes. -Low bone mass at the hip or spine and a 10-year fracture probability by FRAX of greater than or equal to 3% for hip fracture or greater than or equal to 20% for major osteoporotic fracture based on the [place] adapted WHO algorithm. 4. Other Recommendations: All treatment decisions require clinical judgment and consideration of individual patient factors, including patient preferences, comorbidities, previous drug use, risk factors not captured in the FRAX model (e.g. frailty, falls, vitamin D deficiency, increased bone turnover, interval significant decline in bone density) and possible under or overestimation of fracture risk by FRAX. FUTURE SCAN RECOMMENDATION: People with diagnosed cases of osteoporosis or at high risk for fracture should have regular bone mineral density tests. For patients eligible for Medicare, routine testing is allowed once every 2 years. The testing frequency can be increased to one year for patients who have rapidly progressing disease, those who are receiving or discontinuing medical therapy to restore bone mass, or have additional risk factors.
--- NOTE | ~2024-03-22 | MM_ITS ---
EXAMINATION: MM SCREENING DIGITAL BREAST TOMOSYNTHESIS, BILATERAL CLINICAL INFORMATION: Screening. Asymptomatic. COMPARISON: Mammography: This study is compared with prior exams dating back to 2020. TECHNIQUE: Digital breast tomosynthesis is performed in both the craniocaudal and mediolateral oblique views along with computer-aided detection (CAD). Synthesized 2D images are generated from the tomosynthesis. FINDINGS: There are scattered areas of fibroglandular density (ACR BI-RADS breast composition Category b). There are no significant masses, abnormal calcifications, or other abnormalities. Bilateral, benign secretory calcifications are present in each breast. MM/MM tomosynthesis screening BI IMPRESSION: No mammographic evidence of malignancy. ASSESSMENT: BI-RADS BI-RADS 2 - Benign Findings RECOMMENDATION: Routine annual mammography screening. 1 year F/U This examination should not preclude the clinical evaluation of a suspicious palpable abnormality. This patient's information was entered into a reminder system with a target due date for their next mammogram.
== END 2024-03-22 12:24 | disposition home or self-care (01) ==
LOC: HO.MAMMO 12:23
PROVIDERS: PCP Internal Medicine; Visit Provider Internal Medicine
DX: Z12.31 Encounter for screening mammogram for malignant neoplasm of breast (principal); Z13.820 Encounter for screening for osteoporosis; Z78.0 Asymptomatic menopausal state; Z87.81 Personal history of (healed) traumatic fracture
CPT/HCPCS: 77063; 77067; 77080

== ENCOUNTER → 2024-03-22 13:00 | Outpatient (BNV) | payer MEDICARE, SELFPAY | PROVIDERS: PCP Internal Medicine; Visit Provider Radiology Diagnostic Radiology | DX: Z12.31 Encounter for screening mammogram for malignant neoplasm of breast (principal) | CPT/HCPCS: 77063; 77067 ==

== ENCOUNTER 2024-03-30 13:01 | Outpatient (REF) | payer MEDICARE, SELFPAY ==
[2024-03-30 16:07] LABS: MANUAL DIFF FLAG NO
[2024-03-30 16:20] LABS: Basophils Percent Auto 0.7 % (0-2); Eosinophils Absolute Auto 0.2 X10*3/uL (0.0-0.4); Eosinophils Percent Auto 4.8 % (0-4); Hematocrit 36.3 % (37.0-47.0); Hemoglobin 12.3 g/dl (12.0-16.0); Imm Gran Abs Auto 0.01 X10*3/uL (0.00-0.03); Imm Gran Pct Auto 0.2 % (0.0-0.4); Lymphocytes Absolute Auto 0.7 X10*3/uL (1.2-4.9); Lymphocytes Percent Auto 17.7 % (20-40); Mean Corpuscular HGB Conc 33.9 g/dl (31.0-35.0); Mean Corpuscular Hemoglobin 29.9 pg (27.0-33.0); Mean Corpuscular Volume 88.3 fL (80.0-98.0); Mean Platelet Volume 10.9 fL (9.4-12.3); Monocytes Absolute Auto 0.7 X10*3/uL (0.1-1.2); Monocytes Percent Auto 16.5 % (2-11); Neutrophils Absolute Auto 2.5 x10*3/uL (2.0-8.3); Neutrophils Percent Auto 60.1 % (45-73); Platelet Count 132 X10*3/uL (160-400); Red Blood Count 4.11 X10*6/uL (4.20-5.50); Red Cell Distribution Width 13.1 % (11.0-16.0); White Blood Count 4.2 X10*3/uL (4.8-10.8)
[2024-03-30 16:21] LABS: Alanine Aminotransferase 21 U/L (0-31); Albumin Level 3.7 g/dL (3.5-5.0); Alkaline Phosphatase 186 U/L (39-117); Anion Gap 15 (12-20); Aspartate Amino Transferase 48 U/L (5-31); Bilirubin Total 0.8 mg/dL (0.0-1.0); Blood Urea Nitrogen 8 mg/dL (9-16); Calcium 8.9 mg/dL (8.4-10.2); Carbon Dioxide 23 mmol/L (22-29); Chloride 103 mmol/L (96-108); Estimated Glomerular Filt Rate > 60; Glucose Fasting 65 mg/dL (60-99); Iron 53 mcg/dL (30-160); Percent Iron Saturation 18 % (15-50); Potassium 3.9 mmol/L (3.3-5.1); Sodium 137 mmol/L (135-145); Total Iron Binding Capacity 291 mcg/dL (228-428); Total Protein 7.5 g/dL (6.5-8.0); Unsaturated Iron Binding 238 ug/dL
== END 2024-03-30 13:02 | disposition home or self-care (01) ==
LOC: HO.HMGCLDS 13:01
PROVIDERS: PCP Internal Medicine; Visit Provider Internal Medicine
DX: I48.91 Unspecified atrial fibrillation (principal); D64.9 Anemia, unspecified; D69.6 Thrombocytopenia, unspecified; E83.51 Hypocalcemia
CPT/HCPCS: 36415; 80053; 83540; 85025

== ENCOUNTER → 2024-04-04 13:25 | Outpatient (AMB) | payer MEDICARE, SELFPAY ==
[2024-04-04 13:50] VITALS: BP 96/70; PULSE 66; O2SAT 96; BMI 38.5
--- NOTE | 2024-04-04 13:50 | A.OFFPC_ITS ---
Vital Signs 04/04/24 13:50 Height 5 ft Weight 197 lb BMI 38.5 BP 96/70 Blood Pressure Location Rt brachial Position Sitting Pulse 66 Pulse Source Pulse Oximeter Pulse Oximetry (%) 96 Oxygen Delivery Method Room Air Intake Visit Reasons: cataract surgery Dr. farris 04/23 & 04/30 Intake Note: Pt is here today for her cartaract surgery with Dr. Farris Rt eye 04/23 & Lt eye 04/30 Allergies No Known Allergies Allergy (Verified 04/04/24 13:50) Medication List - Last Reconciled 04/04/24 by PIETRO Ornelas acetaminophen 650 mg PO Q8H PRN albuterol sulfate 2.5 mg inhalation BID ammonium lactate 12% 1 appl topical BID aspirin 81 mg PO DAILY atorvastatin 80 mg PO DAILY carbamazepine 200 mg PO TID citalopram 40 mg PO DAILY cyclobenzaprine 10 mg PO BEDTIME PRN ergocalciferol (vitamin D2) 1,250 mcg PO LEYVA famotidine 40 mg PO DAILY furosemide 20 mg PO DAILY lactobacillus combination no.4 (Probiotic) 3,000 mmu cells PO DAILY metoprolol tartrate 12.5 mg PO BID multivitamin 1 tab PO DAILY omega-3 fatty acids-fish oil 684-1,200 mg 1 cap PO DAILY omeprazole 20 mg PO BID quetiapine ER 200 mg PO BEDTIME rivaroxaban (Xarelto) 20 mg PO QPM temazepam 15 mg PO BEDTIME PRN Tobacco use date assessed: 04/04/24 Fall risk assessment: 1 Fall in past year Last assessed Fall Risk: 04/04/24 Dental Screening Dental Screen Date: 04/04/24 Did you have a dental visit in the last 12 months?: No Was dental information given to patient?: Patient declined HPI HPI Comments History of Present Illness Details Patient is a 68-year-old female in today for preop clearance for bilateral cataract surgery. She has a past medical history significant for hypertension, coronary artery disease, AFib, hyperlipidemia, colon cancer, GERD, and Bipolar disorder. Patient has no complaints at the time of appointment. She is scheduled to get cataract surgery on 04/23/2024 and 04/30/2024. [facility] Medical History Unsteady gait Thrombocytopenia Anemia Atrial fibrillation Cervical radiculopathy due to degenerative joint disease of spine Essential hypertension Hyperlipidemia History of radius fracture Former cigarette smoker Degenerative disc disease, cervical CAD (coronary artery disease) Hx of colon cancer, stage III Surgical History History of esophagogastroduodenoscopy (EGD) History of surgery on right wrist History of tonsillectomy History of resection of small bowel History of parotidectomy History of lysis of adhesions Hx of laparoscopic adjustable gastric banding History of exploratory laparotomy Hx laparoscopic cholecystectomy Hx of colonoscopy History of cardiac catheterization History of bunionectomy History of appendectomy History of cervical discectomy History of cervical corpectomy History of fusion of cervical spine Hx of two vessel coronary artery bypass graft Family History Sister Substance use disorder Insulin dependent type 1 diabetes mellitus Mother Colon cancer Breast cancer Coronary artery disease High cholesterol Essential hypertension Social History Household Members: None Housing: Apartment Do you presently have visiting nurse or other home services: No Patient Tobacco Use Status: Former Tobacco user e-Cigarette/Vaping Use: Never Used service: No Current occupational status: retired Cognitive needs: No Hearing needs: No Vision needs: Yes Questionnaire PHQ-9 Over the last 2 weeks, how often have you been bothered by any of the following problems? 20409 - PHQ-9 Billing: Patient declined-do not bill Source: Developed by Drs. Philipp Najera, Nga Sage, Benjamin Berman and colleagues, with an educational ashli from [employer]. Thrive Questionnaire Date Thrive assessed: 02/28/24 REY-7 AMB Questionnaire REY-7 Date REY - 7 assessed: 02/06/24 Source: Developed by Drs. Philipp Najera, Nga Sage, Benjamin Berman and colleagues, with an educational ashli from [employer]. REY-7 Assessment Billing REY-7 Assessment Tool: pt declined-do not bill Review of Systems Const All systems reviewed & are unremarkable except as noted in HPI and below Physical exam (Primary Care) Vital Signs: Last Vital Signs Pulse 66 04/04/24 13:50 BP 96/70 04/04/24 13:50 Pulse Ox 96 04/04/24 13:50 Oxygen Delivery Method Room Air 04/04/24 13:50 Care Plan Goal for BP management: Patient has been instructed to take blood pressure measurements at home multiple times during the day. BMI result Body Mass Index 38.5 Tobacco/Smoking Status: Tobacco use Status Tobacco use date assessed 04/04/24 04/04/24 13:58 Patient Tobacco Use Status Former Tobacco user 04/04/24 13:58 e-Cigarette/Vaping Use Never Used 04/04/24 13:58 Thrive Assessment: Date of Thrive Assessment Date Thrive assessed 02/28/24 04/04/24 13:58 Const Other: Appearance: Alert.? Oriented X3.? No acute distress.? Head: Normocephalic, atraumatic, Eyes: Pupils equal, round and reactive to light. Sclera white. ? ENT: Pharynx normal.?TM intact and pearly espino. Neck: Normal inspection.? Neck supple.? CVS: Afib controlled.? Pulses normal.? Respiratory: No respiratory distress.? Breath sounds normal.? Neuro: Oriented X 3.? Office Procedures EKG [id number], Complete Assessment and Plan Assessment & Plan (1) Pre-operative clearance: Comment: Patient is here for preop clearance for bilateral cataract surgery. Due to patient's new onset AFib, she has not yet been seen by Cardiology, will need preoperative clearance from Cardiology before procedure. Code(s): Z01.818 - Encounter for other preprocedural examination (2) New onset a-fib: Comment: Patient currently taking 12.5 mg metoprolol, also taking 20 mg of rivaroxaban. Patient has 1st cardiology appointment in 1 month Code(s): I48.91 - Unspecified atrial fibrillation (3) Hyperlipidemia: Comment: Patient is currently taking 80 mg atorvastatin. Code(s): E78.5 - Hyperlipidemia, unspecified Qualifiers: Hyperlipidemia type: unspecified Qualified Code(s): E78.5 - Hyperlipidemia, unspecified (4) CAD (coronary artery disease): Comment: History of CABG x2 in 2019. Patient currently taking 81 mg aspirin, atorvastatin 80 mg, metoprolol 12.5 mg, and furosemide 20 mg. Patient is also utilizing the omega-3 fatty acid fish oil. Code(s): I25.10 - Atherosclerotic heart disease of resighini coronary artery without angina pectoris Qualifiers: Coronary Disease-Associated Artery/Lesion type: unspecified vessel or lesion type Associated angina: unspecified whether angina present [place] vs. transplanted heart: resighini heart Qualified Code(s): I25.10 - Atherosclerotic heart disease of resighini coronary artery without angina pectoris (5) GERD (gastroesophageal reflux disease): Comment: Patient is currently taking famotidine 40 mg p.o. daily. Code(s): K21.9 - Gastro-esophageal reflux disease without esophagitis Qualifiers: Esophagitis presence: esophagitis presence not specified Qualified Code(s): K21.9 - Gastro-esophageal reflux disease without esophagitis (6) Anemia: Comment: Most recent hemoglobin 12.3 and HCT is 36.2 Code(s): D64.9 - Anemia, unspecified Qualifiers: Anemia type: unspecified type Qualified Code(s): D64.9 - Anemia, unspecified Plan Patient will need clearance from cardiology. Orders: Orders AMB EKG-In Office Today Z13.6 - Encounter for screening for cardiovascular disorders Coding Level of Care Code Est Pt Level 3 (79245) Diagnoses Pre-operative clearance Z01.818 New onset a-fib I48.91 Hyperlipidemia, unspecified hyperlipidemia type E78.5 Hyperlipidemia type: unspecified Coronary artery disease involving resighini heart, unspecified vessel or lesion type, unspecified whether angina present I25.10 Coronary Disease-Associated Artery/Lesion type: unspecified vessel or lesion type Associated angina: unspecified whether angina present [place] vs. transplanted heart: resighini heart Gastroesophageal reflux disease, unspecified whether esophagitis present K21.9 Esophagitis presence: esophagitis presence not specified Anemia, unspecified type D64.9 Anemia type: unspecified type CPT Codes EKG - CPT: 31193-[id number], Complete ([id number]) Time Spent (min) 32
== END ==
PROVIDERS: PCP Internal Medicine; Visit Provider Nurse Practitioner Primary Care
DX: I48.91 Unspecified atrial fibrillation (principal); E78.5 Hyperlipidemia, unspecified; I25.10 Atherosclerotic heart disease of native coronary artery without angina pectoris
CPT/HCPCS: 93000; 99213

== ENCOUNTER 2024-04-10 15:19 | Outpatient (AMB) | payer MEDICARE, SELFPAY ==
[2024-04-10 15:24] VITALS: BP 102/58; PULSE 87; BMI 38.3
--- NOTE | 2024-04-10 15:24 | MHC.OFFVIS ---
Vital Signs 04/10/24 15:24 Height 5 ft Weight 196 lb 3.382 oz BMI 38.3 BP 102/58 L Blood Pressure Location Lt brachial Position Sitting Pulse 87 Pulse Source Monitor Intake Visit Reasons: pre-op cataract with ekg Allergies No Known Allergies Allergy (Verified 04/04/24 13:50) Medication List - Last Reconciled 04/10/24 by Concetta Arce NP acetaminophen 650 mg PO Q8H PRN albuterol sulfate 2.5 mg inhalation BID ammonium lactate 12% 1 appl topical BID aspirin 81 mg PO DAILY atorvastatin 80 mg PO DAILY carbamazepine 200 mg PO TID citalopram 40 mg PO DAILY cyclobenzaprine 10 mg PO BEDTIME PRN ergocalciferol (vitamin D2) 1,250 mcg PO LEYVA famotidine 40 mg PO DAILY furosemide 20 mg PO DAILY lactobacillus combination no.4 (Probiotic) 3,000 mmu cells PO DAILY metoprolol tartrate 12.5 mg PO BID multivitamin 1 tab PO DAILY omeprazole 20 mg PO BID quetiapine ER 200 mg PO BEDTIME rivaroxaban (Xarelto) 20 mg PO QPM temazepam 15 mg PO BEDTIME PRN HPI Comments Details: 68-year-old female presents for preop clearance for bilateral cataract surgery. Past medical history significant for hypertension, coronary artery disease with two vessel grafting, Atrial fibrillation, and hyperlipidemia. Patient denies any chest pains, shortness of breath, or dizziness. She is scheduled to get cataract surgery on 04/23/2024 and 04/30/2024. She is pretty sedentary due to needing to use a walker for ambulation. [facility] Medical History Unsteady gait Thrombocytopenia Anemia Atrial fibrillation Cervical radiculopathy due to degenerative joint disease of spine Essential hypertension Hyperlipidemia History of radius fracture Former cigarette smoker Degenerative disc disease, cervical CAD (coronary artery disease) Hx of colon cancer, stage III Surgical History History of esophagogastroduodenoscopy (EGD) History of surgery on right wrist History of tonsillectomy History of resection of small bowel History of parotidectomy History of lysis of adhesions Hx of laparoscopic adjustable gastric banding History of exploratory laparotomy Hx laparoscopic cholecystectomy Hx of colonoscopy History of cardiac catheterization History of bunionectomy History of appendectomy History of cervical discectomy History of cervical corpectomy History of fusion of cervical spine Hx of two vessel coronary artery bypass graft Family History Sister Substance use disorder Insulin dependent type 1 diabetes mellitus Mother Colon cancer Breast cancer Coronary artery disease High cholesterol Essential hypertension Social History Household Members: None Housing: Apartment Do you presently have visiting nurse or other home services: No Patient Tobacco Use Status: Former Tobacco user e-Cigarette/Vaping Use: Never Used service: No Current occupational status: retired Cognitive needs: No Hearing needs: No Vision needs: Yes Review of Systems Const Denies weakness ENT Denies dizziness Card Denies chest pain, Denies chest pain with activity, Denies syncope, Denies rapid heart rate, Denies pedal edema, Denies edema, Denies leg edema, Denies lightheadedness, Denies palpitations, Denies dyspnea, Denies dyspnea on exertion and Denies orthopnea Resp Denies cough, Denies dyspnea and Denies dyspnea on exertion GI Denies hematochezia and Denies change in stool character Musc Denies abnormal gait, Denies muscle cramps, Denies muscle weakness, Denies numbness, Denies radiating pain into limb and Denies tingling Neuro Denies abnormal gait, Denies dizziness, Denies syncope, Denies numbness, Denies tingling and Denies weakness Endo Denies palpitations Physical Exam Vital Signs: Last Vital Signs Pulse 87 04/10/24 15:24 BP 102/58 L 04/10/24 15:24 BMI result Body Mass Index 38.3 Office Procedures EKG Details: EKG today. Atrial fibrillation. Left anterior fascicular block. Rate 87 bpm. QRS 108ms. QTc 486ms. [id number], Complete Assessment & Plan Assessment & Plan (1) Pre-operative clearance: Comment: Patient is here for preop clearance for bilateral cataract surgery. Due to patient's new onset AFib, she has not yet been seen by Cardiology, will need preoperative clearance from Cardiology before procedure. Code(s): Z01.818 - Encounter for other preprocedural examination Category: Medical Plan Cataract surgery on 04/23 and 04/[address] Lang. Patient is a intermediate cardiac risk for procedure. Continue all medications. Medications: Changed From metoprolol tartrate 12.5 mg PO BID To metoprolol tartrate 12.5 mg (1/2 x 25 mg) PO BID 90 tabs 3RF 90 days Coding Level of Care Code Est Pt Level 3 (96228) Diagnoses Pre-operative clearance Z01.818 CPT Codes EKG - CPT: [id number], Complete ([id number])
== END 2024-04-10 16:03 | disposition home or self-care (01) ==
PROVIDERS: PCP Internal Medicine; Visit Provider Nurse Practitioner
DX: I10 Essential (primary) hypertension (principal); I25.10 Atherosclerotic heart disease of native coronary artery without angina pectoris; Z01.810 Encounter for preprocedural cardiovascular examination
CPT/HCPCS: 93010; 99213

== ENCOUNTER → 2024-04-10 15:19 | Outpatient (BNVA) | payer MEDICARE, SELFPAY | PROVIDERS: PCP Internal Medicine; Visit Provider Nurse Practitioner | DX: Z01.818 Encounter for other preprocedural examination (principal); I48.91 Unspecified atrial fibrillation; I44.4 Left anterior fascicular block; R94.31 Abnormal electrocardiogram [ECG] [EKG] | CPT/HCPCS: 93005; 99212 ==

== ENCOUNTER 2024-04-13 11:12 | Outpatient (AMB) | payer MEDICARE, SELFPAY ==
--- NOTE | 2024-04-13 11:10 | MHC.OFFWIV ---
Intake Vital Signs 04/13/24 11:11 Height 5 ft BP 120/80 Blood Pressure Location Lt brachial Position Sitting Pulse 80 Pulse Source Pulse Oximeter Temp 97.7 F Temp Source Temporal Artery Scan Pulse Oximetry (%) 95 Oxygen Delivery Method Room Air Intake Visit Reasons: EST/ Intake Note: pt is her today for dizziness started today Patient Tobacco Use Status: Former Tobacco user Allergies No Known Allergies Allergy (Verified 04/13/24 11:27) Do you need a note to return to daycare/school/sports/work: No HPI HPI Comments History of Present Illness Details She came from PT and sent for concern afib She was diagnosed in February after an admission On Xarelto and metoprolol Was at PT prior to arrival and they said BP was low and HR from 70s-100s She saw a new honing machine set up operator recently and was on metoprolol 25mg 1/2 tab daily and was switched to 1/2 tab twice daily Only taking this for 2 days and feeling more lightheaded; no call to cardiology office Last dose was her morning pill She said her symptoms has been intermittent No worsening factors; its random No improving factors She denies CP or SOB No palpitations No syncope, HT or LOC + dizziness that she describes as lightheaded No numbness, tingling or weakness. 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 [facility] Medical History Unsteady gait Thrombocytopenia Anemia Atrial fibrillation Cervical radiculopathy due to degenerative joint disease of spine Essential hypertension Hyperlipidemia History of radius fracture Former cigarette smoker Degenerative disc disease, cervical CAD (coronary artery disease) Hx of colon cancer, stage III Surgical History History of esophagogastroduodenoscopy (EGD) History of surgery on right wrist History of tonsillectomy History of resection of small bowel History of parotidectomy History of lysis of adhesions Hx of laparoscopic adjustable gastric banding History of exploratory laparotomy Hx laparoscopic cholecystectomy Hx of colonoscopy History of cardiac catheterization History of bunionectomy History of appendectomy History of cervical discectomy History of cervical corpectomy History of fusion of cervical spine Hx of two vessel coronary artery bypass graft Family History Sister Substance use disorder Insulin dependent type 1 diabetes mellitus Mother Colon cancer Breast cancer Coronary artery disease High cholesterol Essential hypertension Social History Household Members: None Housing: Apartment Do you presently have visiting nurse or other home services: No Patient Tobacco Use Status: Former Tobacco user e-Cigarette/Vaping Use: Never Used service: No Current occupational status: retired Cognitive needs: No Hearing needs: No Vision needs: Yes Review of Systems Const Denies body aches, Denies chills, Denies fever(s) and Denies frequent falls Eyes Denies blurry vision ENT Reports dizziness and Denies sore throat Card Denies chest pain, Denies syncope, Denies rapid heart rate (irregular HR at PT prior to arrival), Denies leg edema and Denies dyspnea Resp Denies cough and Denies dyspnea GI Denies nausea and Denies vomiting Skin/Breast Denies rash Neuro Reports dizziness, Denies syncope, Denies frequent falls, Denies lack of coordination and Reports paresthesias (chronic neuropathy from chemo. No change) Physical Exam Vital Signs: Last Vital Signs Temp 97.7 F 04/13/24 11:11 Pulse 80 04/13/24 11:11 BP 120/80 04/13/24 11:11 Pulse Ox 95 04/13/24 11:11 Oxygen Delivery Method Room Air 04/13/24 11:11 General: Non-toxic, NAD. Speaking full sentences. Sitting upright in wheelchair Skin: Warm dry throughout Eye: EOMI, PERRL HENT: Airway patent. Uvula midline. No pharyngeal erythema or edema. No CLIN APPLICATION SPECIALIST. No tongue deviation Bilateral canals clear. TM non-erythematous, non-bulging. No TM perforation or hemotympanum noted. Respiratory: CTA bilaterally. No wheezes, rales or rhonchi Cardiac: irregularly irregular. No tachycardia appreciated. No pitting edema or calf tenderness bilaterally. MSK: Free movement of arms and legs from wheelchair without deficit noted. Neurology: A/O. No aphasia or facial droop. Psych: Good mood and affect Assessment & Plan Assessment & Plan (1) Lightheaded: Code(s): R42 - Dizziness and giddiness Plan: Patient seen and evaluated. I attempted to call cardiology office where she was seen 04/10/24 by Concetta Arce MARKETING PROPOSAL COORDINATOR and left a message with desk to call me back at the office to discuss EKG obtained in office; atrial flutter but I reviewed as atrial fibrillation. Only change when compared to previous EKG was a lightly more prominent t wave inversion in III. Vital signs are stable and I had pt up and ambulating in the office with steady gait denying dizziness. She said she does not have a ride home. We discussed with ehr family and personal cardiac hx that she needs to go for labs in ER and she refuses. She signed AMA against going to ER and against not operating motor vehicle and is aware of risks such as . She states she has no dizziness now. We had long discussion on no operating motor vehicle, any onset CP, recurrent dizziness etc go to ER She will hold metoprolol tonight and keep trying to cards office to discuss Patient gave verbal understanding and had no additional questions or concerns at time of discharge All questions answered Coding Level of Care Code Est Pt Level 4 (04458) Diagnoses Lightheaded R42
[2024-04-13 11:11] VITALS: BP 120/80; PULSE 80; TEMP 36.5; O2SAT 95
== END 2024-04-13 14:04 | disposition home or self-care (01) ==
PROVIDERS: PCP Internal Medicine; Visit Provider Physician Assistant
DX: R42 Dizziness and giddiness (principal)
CPT/HCPCS: 99214

== ENCOUNTER 2024-05-07 11:18 | Outpatient (AMB) | payer MEDICARE, SELFPAY ==
--- NOTE | 2024-05-07 11:30 | MHC.PC.OV ---
Vital Signs 05/07/24 11:32 Height 5 ft Weight 195 lb BMI 38.1 BP 102/62 Blood Pressure Location Lt brachial Position Sitting Pulse 72 Pulse Source Pulse Oximeter Pulse Oximetry (%) 95 Oxygen Delivery Method Room Air Intake Visit Reasons: Follow-up on her lipids after labs done Intake Note: Pt is here today to f/u CAD Allergies No Known Allergies Allergy (Verified 06/04/24 14:02) Medication List - Last Reconciled 08/14/24 by Molly Mcgowan MD acetaminophen 650 mg PO Q8H PRN albuterol sulfate 2.5 mg inhalation BID ammonium lactate 12% 1 appl topical BID aspirin 81 mg PO DAILY atorvastatin 80 mg PO DAILY carbamazepine 200 mg PO TID cholecalciferol (vitamin D3) 50 mcg PO DAILY citalopram 40 mg PO DAILY cyclobenzaprine 10 mg PO BEDTIME PRN famotidine 40 mg PO DAILY furosemide 20 mg PO DAILY lactobacillus combination no.4 (Probiotic) 3,000 mmu cells PO DAILY@0800 metoprolol tartrate 12.5 mg (1/2 x 25 mg) PO BID 90 days multivitamin 1 tab PO DAILY nystatin 1 appl topical DAILY PRN quetiapine ER 200 mg PO BEDTIME rivaroxaban (Xarelto) 20 mg PO DAILY@1700 temazepam 15 mg PO BEDTIME Tobacco use date assessed: 04/04/24 Dental Screening Dental Screen Date: 04/04/24 HPI HPI Comments History of Present Illness Details 68-year-old lady with past medical history of colon cancer, atrial fibrillation, coronary artery disease status post CABG, hypertension, here today for follow-up on her lipids. She had recent fasting labs done which showed fasting lipids are within normal limits. Currently on atorvastatin 80 mg daily. Has been feeling well with no complaints at present time. [facility] Medical History History of small bowel obstruction Hx of colon cancer, stage III Bipolar 1 disorder CAD (coronary artery disease) Persistent atrial fibrillation Essential hypertension Hyperlipidemia Personal history of nicotine dependence Unsteady gait Thrombocytopenia Anemia Cervical radiculopathy due to degenerative joint disease of spine History of radius fracture Degenerative disc disease, cervical Acquired deafness of left ear Surgical History History of coronary artery bypass graft x 2 (~2019) History of cardiac catheterization History of partial colectomy (~2015) History of reversal of ileostomy History of resection of small bowel (~2020) History of laparoscopic adjustable gastric banding (~2004) History of laparoscopic cholecystectomy (~2003) History of parotidectomy (~2014) History of cervical discectomy (~2013) History of surgery on right wrist History of colonoscopy History of esophagogastroduodenoscopy (EGD) History of appendectomy (~2003) History of tonsillectomy History of bunionectomy Family History Sister Substance use disorder Insulin dependent type 1 diabetes mellitus Mother Colon cancer Breast cancer Coronary artery disease High cholesterol Essential hypertension Social History Household Members: None Housing: Apartment Do you presently have visiting nurse or other home services: No Alcohol intake: current Alcohol intake frequency: holidays/special occasions only Patient Tobacco Use Status: Former Tobacco user Years Smoked: (former smoker - onset 30yo, 1ppd x 33yrs, 30pyh, quit 11/2018) e-Cigarette/Vaping Use: Never Used Second Hand Smoke Exposure: No Advance Directives Date on File: 03/02/24 service: No Current occupational status: retired Cognitive needs: No Hearing needs: No Vision needs: Yes Questionnaire Thrive Questionnaire Date Thrive assessed: 02/28/24 REY-7 AMB Questionnaire REY-7 Date REY - 7 assessed: 02/06/24 Source: Developed by Drs. Philipp Najera, Nga Sage, Benjamin Berman and colleagues, with an educational ashli from [employer]. Review of Systems Const Denies chills, Denies fatigue, Denies fever(s), Denies frequent falls, Denies weakness, Denies weight gain and Denies weight loss Eyes Denies change in vision ENT Denies dizziness Card Denies chest pain, Denies leg edema, Denies lightheadedness, Denies palpitations, Denies dyspnea and Denies dyspnea on exertion Resp Denies cough, Denies dyspnea and Denies dyspnea on exertion GI Denies hematochezia Reports no additional complaints Musc Denies abnormal gait, Denies muscle weakness, Denies numbness, Denies radiating pain into limb and Denies tingling Neuro Denies abnormal gait, Denies dizziness, Denies frequent falls, Denies numbness, Denies tingling and Denies weakness Psych Reports no additional complaints Endo Denies fatigue and Denies palpitations Yonas/Lymph Reports no additional complaints Aller/Immun Reports no additional complaints Physical exam (Primary Care) Vital Signs: Last Vital Signs Pulse 72 05/07/24 11:32 BP 102/62 05/07/24 11:32 Pulse Ox 95 05/07/24 11:32 Oxygen Delivery Method Room Air 05/07/24 11:32 BMI result Body Mass Index 38.1 Tobacco/Smoking Status: Tobacco use Status Tobacco use date assessed 04/04/24 05/07/24 11:32 Patient Tobacco Use Status Former Tobacco user 05/07/24 11:32 e-Cigarette/Vaping Use Never Used 05/07/24 11:32 Thrive Assessment: Date of Thrive Assessment Date Thrive assessed 02/28/24 05/07/24 11:32 Const General: comfortable, no acute distress and alert Orientation/consciousness: patient oriented x3 HENMT Ears: external ears normal General nose exam: Normal external nose present and No nasal discharge present Mouth: Normal oral and palatal mucosa present, oropharynx normal and moist mucous membranes Eyes General: appearance normal, both eyes and all related structures Neck Neck: Yes full ROM, Yes no lymphadenopathy and Yes supple Resp Effort & Inspection: normal respiratory effort and able to speak in complete sentences Auscultation: clear to auscultation bilaterally Cardio Rhythm: abnormal rhythm irregularly irregular GI Palpation (GI): Soft to palpation, nontender and no masses Auscultation: normal bowel sounds Back/Spine/Pelvis Back: No back tenderness Skin General skin exam: no rashes or lesions noted Neuro General: patient oriented x3, moves all extremities, Normal light touch and pain sensation and no focal motor deficits Cranial nerves: Yes CN's II-XII intact bilaterally Cognition (Neuro): normal cognition Extrem General: Yes full ROM, Yes no joint enlargement, Yes no clubbing, cyanosis or edema and Yes no calf tenderness Results Reviewed Results Reviewed: siobhan: Deidre To Age/Sex: 68/F : 1955 Unit#: [id number] Attend Dr: Molly Mcgowan MD Re03/30/24 Status: DEP [facility]F [facility] Disch: SPEC : [id number] PABLITO: 03/30/24 STATUS: COMP REQ : [id number] RECD: 03/30/[address]: Molly Mcgowan MD COMP: 03/30/24 ENTERED: 03/30/[address]: ORDERED: CMP Fast, IRON PROF Test Result Flag Reference Sodium 137 135-145 mmol/L Potassium 3.9 3.3-5.1 mmol/L CL 103 96-108 mmol/L CO2 23 22-29 mmol/L Gap 15 12-20 BUN 8 L 9-16 mg/dL Creat 0.81 0.5-1.4 mg/dL EGFR > 60 NOTE: For -Spanish individuals, multiply the result by 1.210. Chronic Kidney Disease: Estimated GFR < 60 mL/min/1.73m2 Severe Kidney Disease: Estimated GFR < 15 mL/min/1.73m2 FBS 65 60-99 mg/dL CA 8.9 # 8.4-10.2 mg/dL Iron 53 30-160 mcg/dL TIBC 291 228-428 mcg/dL Saturation 18 15-50 % UIBC 238 ug/dL Total Bili 0.8 0.0-1.0 mg/dL AST (GOT) 48 H 5-31 U/L ALT (GPT) 21 0-31 U/L Protein, Total 7.5 6.5-8.0 g/dL Alb 3.7 3.5-5.0 g/dL Alk Phos 186 H 39-117 U/L SPEC : [id number] PABLITO: 03/30/24 STATUS: COMP REQ : [id number] RECD: 03/30/[address]: Molly Mcgowan MD COMP: 03/30/24 ENTERED: 03/30/[address]: ORDERED: CBC Auto Diff Test Result Flag Reference WBC 4.2 L 4.8-10.8 X10*3/uL RBC 4.11 # L 4.20-5.50 X10*6/uL HGB 12.3 # 12.0-16.0 g/dl HCT 36.3 L 37.0-47.0 % MCV 88.3 80.0-98.0 fL MCH 29.9 27.0-33.0 pg MCHC 33.9 31.0-35.0 g/dl RDW 13.1 11.0-16.0 % PLT 132 # L 160-400 X10*3/uL MPV 10.9 9.4-12.3 fL Neut Pct Auto 60.1 45-73 % ImGran Pct Auto 0.2 0.0-0.4 % Lymp Pct Auto 17.7 L 20-40 % [place] Pct Auto 16.5 H 2-11 % Eos Pct Auto 4.8 H 0-4 % Baso Pct Auto 0.7 0-2 % NRBC Pct Auto 0.0 0.0-0.2 /100WBC ANC Neut Abs # 2.5 2.0-8.3 x10*3/uL ImGran Abs Auto 0.01 0.00-0.03 X10*3/uL Lymph Abs Auto 0.7 L 1.2-4.9 X10*3/uL [place] Abs Auto 0.7 0.1-1.2 X10*3/uL Eos Abs Auto 0.2 0.0-0.4 X10*3/uL Baso Abs Auto 0.0 0.0-0.2 X10*3/uL NRBC Abs Auto 0.000 0.0-0.012 X10*3/uL Name: Deidre To Age/Sex: 68/F : 1955 Unit#: [id number] Attend Dr: Molly Mcgowan MD Re02/09/24 Status: DEP REF Location: [facility] Disch: SPEC : [id number] PABLITO: 02/09/24 STATUS: COMP REQ : [id number] RECD: 02/09/[address]: Molly Mcgowan MD COMP: 02/09/24 ENTERED: 02/09/[address]: ORDERED: CMP Fast, Lipid Panel, Vitamin D 25-OH Test Result Flag Reference Sodium 136 135-145 mmol/L Potassium 3.7 3.3-5.1 mmol/L CL 105 96-108 mmol/L CO2 22 22-29 mmol/L Gap 13 12-20 BUN 8 L 9-16 mg/dL Creat 0.70 0.5-1.4 mg/dL EGFR > 60 NOTE: For -Spanish individuals, multiply the result by 1.210. Chronic Kidney Disease: Estimated GFR < 60 mL/min/1.73m2 Severe Kidney Disease: Estimated GFR < 15 mL/min/1.73m2 FBS 97 60-99 mg/dL CA 8.7 8.4-10.2 mg/dL Total Bili 1.0 0.0-1.0 mg/dL AST (GOT) 67 H 5-31 U/L ALT (GPT) 27 0-31 U/L Protein, Total 6.9 6.5-8.0 g/dL Alb 3.3 L 3.5-5.0 g/dL Triglyceride 96 <150 mg/dL Desirable Triglyceride: less than 150 mg/dL Borderline High Triglyceride 150-199 mg/dL High Triglyceride: 200-499 mg/dL Very High Triglyceride: greater than or equal to 5OO mg/dL Cholesterol 130 <200 mg/dL Desirable Cholesterol: less than 200 mg/dL Borderline High Cholesterol: 200-239 mg/dL High Cholesterol: greater than 239 mg/dL LDL Calculated 61 <100 mg/dL Desirable LDL: less than 100 mg/dL Near Optimal/Above Optimal LDL: 110-129 mg/dL Borderline High LDL: 130-159 mg/dL High LDL: 160-189 mg/dL Very High LDL: greater than or equal to 190 mg/dL HDL 50 >40 mg/dL Desirable HDL: greater than 40 mg/dL Note: This HDL assay may give artificially low results in patients with liver disease. Alk Phos 189 H 39-117 U/L Vit D 25-OH Tot 33.1 >30 ng/mL Health Based Reference Values* < 20 ng/mL Deficient 20-30 ng/mL Insufficient > 30 ng/mL Sufficient Assessment and Plan Assessment & Plan (1) CAD (coronary artery disease): Code(s): I25.10 - Atherosclerotic heart disease of [place] coronary artery without angina pectoris Qualifiers: Associated angina: unspecified whether angina present Coronary Disease-Associated Artery/Lesion type: unspecified vessel or lesion type [place] vs. transplanted heart: [place] heart Qualified Code(s): I25.10 - Atherosclerotic heart disease of [place] coronary artery without angina pectoris Plan: History of CABG x2 in 2019. Patient currently taking 81 mg aspirin, atorvastatin 80 mg, metoprolol 12.5 mg, and furosemide 20 mg. Patient is also utilizing the omega-3 fatty acid fish oil. (2) Hyperlipidemia: Comment: Patient is currently taking 80 mg atorvastatin. Code(s): E78.5 - Hyperlipidemia, unspecified Qualifiers: Hyperlipidemia type: unspecified Qualified Code(s): E78.5 - Hyperlipidemia, unspecified Plan: Last fasting lipids done 02/01/2024 showed results within normal limits, will continue on atorvastatin 80 mg daily, and reinforced importance of following a low cholesterol diet and staying active. Orders: Orders Aspartate Amino Transferase 05/07/24 I25.10 - Atherosclerotic heart disease of [place] coronary artery without angina pectoris, E78.5 - Hyperlipidemia, unspecified Lipid Panel 05/07/24 I25.10 - Atherosclerotic heart disease of [place] coronary artery without angina pectoris, E78.5 - Hyperlipidemia, unspecified Alanine Aminotransferase 05/07/24 I25.10 - Atherosclerotic heart disease of [place] coronary artery without angina pectoris, E78.5 - Hyperlipidemia, unspecified Medications: New cholecalciferol (vitamin D3) 50 mcg PO DAILY 90 caps 3RF Refilled atorvastatin 80 mg PO DAILY 90 tabs 3RF Coding Level of Care Code Est Pt Level 4 (37590) Complex EM visit Add On G2211 Diagnoses Coronary artery disease involving [place] heart, unspecified vessel or lesion type, unspecified whether angina present I25.10 Associated angina: unspecified whether angina present Coronary Disease-Associated Artery/Lesion type: unspecified vessel or lesion type [place] vs. transplanted heart: mi[place]q heart Hyperlipidemia, unspecified hyperlipidemia type E78.5 Hyperlipidemia type: unspecified
[2024-05-07 11:32] VITALS: BP 102/62; PULSE 72; O2SAT 95; BMI 38.1
== END 2024-05-07 12:08 | disposition home or self-care (01) ==
PROVIDERS: PCP Internal Medicine; Visit Provider Internal Medicine
DX: I25.10 Atherosclerotic heart disease of native coronary artery without angina pectoris (principal); E78.5 Hyperlipidemia, unspecified
CPT/HCPCS: 99214; G2211

== ENCOUNTER 2024-05-08 09:13 | Outpatient (AMB) | payer MEDICARE, SELFPAY ==
[2024-05-08 09:15] VITALS: BP 100/60; PULSE 75; BMI 37.9
--- NOTE | 2024-05-08 09:15 | A.OFFVIS_ITS ---
Vital Signs 05/08/24 09:15 Height 5 ft Weight 194 lb 0.108 oz BMI 37.9 BP 100/60 Blood Pressure Location Lt brachial Position Sitting Pulse 75 Pulse Source Pulse Oximeter Intake Visit Reasons: [facility] dc fu/?Atherosclerotic heart disease Allergies No Known Allergies Allergy (Verified 05/07/24 11:33) Medication List - Last Reconciled 05/08/24 by Vijay Han MD acetaminophen 650 mg PO Q8H PRN albuterol sulfate 2.5 mg inhalation BID ammonium lactate 12% 1 appl topical BID aspirin 81 mg PO DAILY atorvastatin 80 mg PO DAILY carbamazepine 200 mg PO TID cholecalciferol (vitamin D3) 50 mcg PO DAILY citalopram 40 mg PO DAILY cyclobenzaprine 10 mg PO BEDTIME PRN furosemide 20 mg PO DAILY ketorolac 0.5% drps ophthalmic (eye) lactobacillus combination no.4 (Probiotic) 3,000 mmu cells PO DAILY metoprolol tartrate 12.5 mg (1/2 x 25 mg) PO BID 90 days multivitamin 1 tab PO DAILY prednisolone acetate 1% drps ophthalmic (eye) quetiapine ER 200 mg PO BEDTIME rivaroxaban (Xarelto) 20 mg PO QPM HPI Comments Details: Deidre returns for follow-up after recent hospitalization. She was actually admitted for small-bowel obstruction and in that setting was diagnosed with atrial fibrillation. Per available information, she has moved from [place] few months back. She underwent coronary artery bypass surgery around 2019 in [facility]. There is no previous diagnosis of atrial fibrillation according to her. Any case, she generally feels fine. One episode of chest pain while in the bathroom. Last for few minutes and then resolved completely. Otherwise feels okay. [facility] Medical History Unsteady gait Thrombocytopenia Anemia Atrial fibrillation Cervical radiculopathy due to degenerative joint disease of spine Essential hypertension Hyperlipidemia History of radius fracture Former cigarette smoker Degenerative disc disease, cervical CAD (coronary artery disease) Hx of colon cancer, stage III Surgical History History of esophagogastroduodenoscopy (EGD) History of surgery on right wrist History of tonsillectomy History of resection of small bowel History of parotidectomy History of lysis of adhesions Hx of laparoscopic adjustable gastric banding History of exploratory laparotomy Hx laparoscopic cholecystectomy Hx of colonoscopy History of cardiac catheterization History of bunionectomy History of appendectomy History of cervical discectomy History of cervical corpectomy History of fusion of cervical spine Hx of two vessel coronary artery bypass graft Family History Sister Substance use disorder Insulin dependent type 1 diabetes mellitus Mother Colon cancer Breast cancer Coronary artery disease High cholesterol Essential hypertension Social History Household Members: None Housing: Apartment Do you presently have visiting nurse or other home services: No Patient Tobacco Use Status: Former Tobacco user e-Cigarette/Vaping Use: Never Used service: No Current occupational status: retired Cognitive needs: No Hearing needs: No Vision needs: Yes Review of Systems Const Denies weakness ENT Denies dizziness Card Denies chest pain, Denies chest pain with activity, Denies syncope, Denies rapid heart rate, Denies pedal edema, Denies edema, Denies leg edema, Denies lightheadedness, Denies palpitations, Denies dyspnea, Denies dyspnea on exertion and Denies orthopnea Resp Denies cough, Denies dyspnea and Denies dyspnea on exertion GI Denies hematochezia and Denies change in stool character Musc Denies abnormal gait, Denies muscle cramps, Denies muscle weakness, Denies numbness, Denies radiating pain into limb and Denies tingling Neuro Denies abnormal gait, Denies dizziness, Denies syncope, Denies numbness, Denies tingling and Denies weakness Endo Denies palpitations Physical Exam Vital Signs: Last Vital Signs Pulse 75 05/08/24 09:15 BP 100/60 05/08/24 09:15 BMI result Body Mass Index 37.9 Const General: comfortable and no acute distress Orientation/consciousness: patient oriented x3 HEENT Other: Unremarkable Head: Yes normal to inspection Neck Neck: Yes normal visual inspection Chest Chest palpation & inspection: normal inspection of the chest Resp Auscultation: clear to auscultation bilaterally Cardio Palpation: normal PMI Heart sounds: S1 normal heart sound present, S2 normal heart sound present, no gallops, Murmur heart sound present systolic II/ and at the right sternal border and no rubs GI Palpation (GI): Soft to palpation Back/Spine/Pelvis Other: unremarkable Skin General skin exam: no rashes or lesions noted Neuro General: patient oriented x3 Extrem General: Yes normal to inspection Psych Mental Status: mental status grossly normal Assessment & Plan Assessment & Plan (1) Persistent atrial fibrillation: Code(s): I48.19 - Other persistent atrial fibrillation Category: Medical Plan: By last EKG from March, in atrial fibrillation at a rate of 81/Min. Incomplete right bundle-branch block pattern. Leftward axis. Cannot exclude old anterior infarct. She has on a small dose of beta-[place]. Also on Xarelto. No changes at this time. On the echocardiogram, left atrium described to be severely dilated. May indicate chronicity. We will get Holter. (2) Status post coronary artery bypass graft: Code(s): Z95.1 - Presence of aortocoronary bypass graft Category: Surgical Plan: History of CABG in 2019. Recent episode of chest pain, but not clear if it is cardiac or not. Will obtain myocardial perfusion imaging study. (3) Nonrheumatic aortic (valve) stenosis: Code(s): I35.0 - Nonrheumatic aortic (valve) stenosis Category: Medical Plan: Echocardiogram with moderate aortic valve calcification with mild stenosis/regurgitation. Will continue to monitor. (4) Mitral annular calcification: Code(s): I34.81 - Nonrheumatic mitral (valve) annulus calcification Category: Medical Plan: Severe mitral annular calcification but no significant valvular dysfunction. Increased risk of developing calcific mitral stenosis in the future. 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 Orders: Orders CA lexiscan stress w kip Today I20.9 - Angina pectoris, unspecified ECG 3 day holter monitor Today I48.19 - Other persistent atrial fibrillation NM cardiolite stress test Today R07.2 - Precordial pain Coding Level of Care Code Est Pt Level 4 (37426) Diagnoses Persistent atrial fibrillation I48.19 Status post coronary artery bypass graft Z95.1 Nonrheumatic aortic (valve) stenosis I35.0 Mitral annular calcification I34.81
== END 2024-05-08 09:57 | disposition home or self-care (01) ==
PROVIDERS: PCP Internal Medicine; Visit Provider Internal Medicine
DX: I48.19 Other persistent atrial fibrillation (principal); Z95.1 Presence of aortocoronary bypass graft; I35.0 Nonrheumatic aortic (valve) stenosis; I34.81 Nonrheumatic mitral (valve) annulus calcification
CPT/HCPCS: 99214

== ENCOUNTER → 2024-05-08 09:13 | Outpatient (BNVA) | payer MEDICARE, SELFPAY | PROVIDERS: PCP Internal Medicine; Visit Provider Internal Medicine | DX: I48.19 Other persistent atrial fibrillation (principal); I35.0 Nonrheumatic aortic (valve) stenosis; I34.81 Nonrheumatic mitral (valve) annulus calcification; I25.10 Atherosclerotic heart disease of native coronary artery without angina pectoris; I10 Essential (primary) hypertension; Z95.1 Presence of aortocoronary bypass graft | CPT/HCPCS: 99212 ==

== ENCOUNTER 2024-05-10 19:12 | Emergency (ER) | payer MEDICARE, SELFPAY ==
--- NOTE | ~2024-05-10 | XR_ITS ---
EXAMINATION: XR CHEST CLINICAL INFORMATION: Chest pain. COMPARISON: 02/28/2024 TECHNIQUE: Frontal view of the chest was obtained. FINDINGS: Sternal wires and ECG leads overlie the chest. Marked mitral annular calcification. Cardiac silhouette is within normal limits in size. Pulmonary vasculature is normal. No pulmonary edema. No consolidation, pneumothorax, or pleural effusion. No acute osseous findings. XR/XR chest 1V IMPRESSION: 1. No acute pulmonary findings. 2. Marked mitral annular calcification.
[2024-05-10 19:17] VITALS: BP 107/56; BP 119/78; PULSE 70; PULSE 80; RESP 19; TEMP 36.8; O2SAT 95; O2SAT 96; BMI 38.1
--- NOTE | 2024-05-10 19:35 | ED.CHESTPAIN ---
HPI - Chest Pain General Chief Complaint: Chest Pain Stated Complaint: INTERMITTEN CHEST PAIN,HX AFIB Time Seen by Provider: 05/10/24 19:35 Source: patient and EMS Mode of arrival: EMS Limitations: no limitations History of Present Illness ED Provider: DR. Oliveira HPI narrative: 68-year-old female with history of thrombocytopenia, anemia, AFib on Eliquis, cervical radiculopathy, HTN, HLD, former cigarette smoker, CAD presented today for evaluation of chest pain for the past 2 days described as intermittent chest pain lasts for few minutes then resolved completely, pain is localized to the mid chest with no radiation, no other associated symptoms no shortness of breath, no fever, no chills. Patient was seen by Dr. Han her transplant registered nurse 2 days ago who ordered Holter monitor, stress test to be scheduled as outpatient. Patient currently have no chest pain shortness of breath, no lower extremity swelling, no PND. Related Data Home Medications ?Medication ?Instructions ?Recorded ?Confirmed acetaminophen 325 mg tablet 650 mg PO Q8H PRN ARTHRITIS PAIN 01/09/24 05/08/24 aspirin 81 mg tablet,delayed 81 mg PO DAILY 01/09/24 05/08/24 release carbamazepine 200 mg tablet 200 mg PO TID 01/09/24 05/08/24 citalopram 40 mg tablet 40 mg PO DAILY 01/09/24 05/08/24 furosemide 20 mg tablet 20 mg PO DAILY 01/09/24 05/08/24 quetiapine 200 mg tablet,extended 200 mg PO BEDTIME 01/09/24 05/08/24 release 24 hr ammonium lactate 12 % topical cream 1 appl topical BID 02/06/24 05/08/24 albuterol sulfate 2.5 mg/3 mL 2.5 mg inhalation BID 02/28/24 05/08/24 (0.083 %) solution for nebulization multivitamin 1 tab PO DAILY 02/28/24 05/08/24 lactobacillus combination no.4 3 3,000 mmu cells PO DAILY 04/10/24 05/08/24 billion cell capsule (Probiotic) ketorolac 0.5 % eye drops drp ophthalmic (eye) 04/13/24 05/08/24 prednisolone acetate 1 % eye drp ophthalmic (eye) 04/13/24 05/08/24 drops,suspension Previous Rx's ?Medication ?Instructions ?Recorded rivaroxaban 20 mg tablet (Xarelto) 20 mg PO QPM #90 tabs 03/13/24 cyclobenzaprine 10 mg tablet 10 mg PO BEDTIME PRN Painful 03/21/24 muscle spasm #30 tabs metoprolol tartrate 25 mg tablet 12.5 mg (1/2 x 25 mg) PO BID 90 04/11/24 days #90 tabs atorvastatin 80 mg tablet 80 mg PO DAILY #90 tabs 05/07/24 cholecalciferol (vitamin D3) 50 50 mcg PO DAILY #90 caps 05/07/24 mcg (2,000 unit) capsule Allergies Allergy/AdvReac Type Severity Reaction Status Date / Time No Known Allergies Allergy Verified 05/10/24 19:19 Review of Systems Review of Systems: All other systems are reviewed and are negative Constitutional: Reports as per HPI and Reports no additional constitutional complaints Eyes: Reports as per HPI and Reports no additional eye complaints Reports system reviewed and no additional complaints, except as documented Cardiovascular: Reports as per HPI and Reports no additional cardiovascular complaints Respiratory: Reports as per HPI and Reports no additional respiratory complaints Gastrointestinal: Reports as per HPI and Reports no additional gastrointestinal complaints Genitourinary: Reports no additional female genitourinary complaints Musculoskeletal: Reports no additional musculoskeletal complaints Skin/Breast: Reports system reviewed and no additional complaints, except as docu Psychiatric: Reports no additional psychiatric complaints Endocrine: Reports no additional endocrine complaints Hematologic/Lymphatic: Reports no additional hematologic/lymphatic complaints Allergic/Immunologic: Reports no additional allergic/immunologic complaints Reports system reviewed and no additional complaints, except as documented and Reports Abnormal speech present [facility] Past Medical History Medical History Unsteady gait Thrombocytopenia Anemia Atrial fibrillation Cervical radiculopathy due to degenerative joint disease of spine Essential hypertension Hyperlipidemia History of radius fracture Former cigarette smoker Degenerative disc disease, cervical CAD (coronary artery disease) Hx of colon cancer, stage III Surgical History History of esophagogastroduodenoscopy (EGD) History of surgery on right wrist History of tonsillectomy History of resection of small bowel History of parotidectomy History of lysis of adhesions Hx of laparoscopic adjustable gastric banding History of exploratory laparotomy Hx laparoscopic cholecystectomy Hx of colonoscopy History of cardiac catheterization History of bunionectomy History of appendectomy History of cervical discectomy History of cervical corpectomy History of fusion of cervical spine Hx of two vessel coronary artery bypass graft Family History Family History Sister Substance use disorder Insulin dependent type 1 diabetes mellitus Mother Colon cancer Breast cancer Coronary artery disease High cholesterol Essential hypertension Social History Social History Household Members: None Housing: Apartment Do you presently have visiting nurse or other home services: No Alcohol intake: current Alcohol intake frequency: holidays/special occasions only Patient Tobacco Use Status: Former Tobacco user Smoked in Last 30 Days: No e-Cigarette/Vaping Use: Never Used Use of substances other than those prescribed or required for medical reasons: No Advance Directives: Yes Advance Directives on File: Yes Advance Directives Date on File: 05/09/24 service: No Current occupational status: retired Cognitive needs: No Hearing needs: No Vision needs: Yes Physical Exam Vital Signs: Vital Signs: Last Vital Signs Temp 98.1 F 05/11/24 01:00 Pulse 64 05/11/24 01:00 Resp 17 05/11/24 01:00 BP 115/77 05/11/24 01:00 Pulse Ox 96 05/11/24 01:00 O2 Del Method Room Air 05/11/24 01:00 BMI result Body Mass Index 38.1 Vital signs have been reviewed and appear to be correct. Blood pressure elevated. Heart rate normal. Respiratory rate normal. Temperature normal. Oxygen saturation normal. Appearance: Alert. Oriented X3. No acute distress. Head: Normal external exam. Normocephalic. Atraumatic. No Cespedes signs noted. No raccoon eyes noted Eyes: PERRLA. EOMI. Conjunctiva and sclera normal. Eyelids normal. ENT: TM's Normal. Pharynx normal. Uvula midline. Moist mucous membranes. No trismus noted. No drooling noted. No muffled voice noted. Neck: Normal inspection. Neck supple. FROM. No adenopathy. Thyroid Normal. No meningeal signs. No neck mass noted. CVS: Normal heart rate and rhythm. Heart sound normal. No murmurs noted. Pulses normal throughout. Respiratory: No respiratory distress. Painless inspiration. Breath sounds normal. No wheezes/rales/rhonchi noted. Chest nontender. No accessory muscle usage noted or decreased air movement noted. Abdomen: Soft and nontender. Bowel sounds normal in all 4 quadrants. No distention noted. No organomegaly noted. No visible injury noted. Back: No CVA tenderness. Full range of motion noted. Skin: Skin warm and dry. Normal skin color. Normal skin turgor. No rashes/lesions/lacerations noted. Extremities: No lower extremity edema. Extremities exhibit normal range of motion. Extremities nontender. Neuro: Oriented X 3. Cranial nerve exam: II-XII are grossly intact No motor deficit. No sensory deficit. Reflexes normal. Course Reevaluation(s) Reevaluation #1: 68-year-old female came in for evaluation chest pain, no evidence of ACS, patient is scheduled to have outpatient stress test and Holter monitor by Dr. Han patient was instructed to follow-up with her PCP and transplant registered nurse and return if symptoms persist. Hypomagnesemia with repleted in the ED. Time: 00:30 Medications Administered Discontinued Medications Generic Name Dose Route Start Last Admin Trade Name Freq PRN Reason Stop Dose Admin Magnesium Sulfate 2 gm in 50 mls @ 25 mls/hr 05/10/24 21:23 05/11/24 01:03 Magnesium Sulfate/H2o IV 05/10/24 23:22 Infused ONCE ONE Infusion Medical Decision Making Differential Diagnosis Differential Diagnoses: The differential diagnosis associated with the presentation includes (ACS, pneumonia, pneumothorax, pleural effusion, electrolyte derangement, severe anemia.) Admission/Observation Consideration of admission/observation: Escalation of care including admission/observation considered Lab Data MDM Lab Attestation statement: I reviewed the patient's lab results. 05/10/24 20:49 05/10/24 20:49 Labs: Lab Results 05/10/24 05/10/24 Range/Units 20:49 22:16 WBC 4.0 L (4.8-10.8) X10*3/uL RBC 3.87 L (4.20-5.50) X10*6/uL Hgb 11.5 L (12.0-16.0) g/dl Hct 33.3 L (37.0-47.0) % MCV 86.0 (80.0-98.0) fL MCH 29.7 (27.0-33.0) pg MCHC 34.5 (31.0-35.0) g/dl RDW 13.2 (11.0-16.0) % Plt Count 119 L (160-400) X10*3/uL MPV 10.6 (9.4-12.3) fL Immature Gran % (Auto) 0.5 H (0.0-0.4) % Neut % (Auto) 53.9 (45-73) % Lymph % (Auto) 20.7 (20-40) % [place] % (Auto) 18.6 H (2-11) % Eos % (Auto) 5.5 H (0-4) % Baso % (Auto) 0.8 (0-2) % Lymph # (Auto) 0.8 L (1.2-4.9) X10*3/uL [place] # (Auto) 0.7 (0.1-1.2) X10*3/uL Eos # (Auto) 0.2 (0.0-0.4) X10*3/uL Baso # (Auto) 0.0 (0.0-0.2) X10*3/uL Abs Immat Gran (auto) 0.02 (0.00-0.03) X10*3/uL Absolute Neuts (auto) 2.1 (2.0-8.3) x10*3/uL Absolute Nucleated RBC 0.000 (0.0-0.012) X10*3/uL Nucleated RBC % (auto) 0.0 (0.0-0.2) /100WBC Sodium 136 (135-145) mmol/L Potassium 3.8 (3.3-5.1) mmol/L Chloride 106 (96-108) mmol/L Carbon Dioxide 23 (22-29) mmol/L Anion Gap 11 L (12-20) BUN 12 (9-16) mg/dL Creatinine 0.78 (0.5-1.4) mg/dL Estim Creat Clear Calc 68.3 Estimated GFR > 60 Random Glucose 113 (60-115) mg/dL Calcium 8.5 (8.4-10.2) mg/dL Magnesium 1.4 L* (1.6-2.6) mg/dL Total Bilirubin 0.6 (0.0-1.0) mg/dL Direct Bilirubin 0.3 (0.0-0.5) mg/dL AST 38 H (5-31) U/L ALT 19 (0-31) U/L Alkaline Phosphatase 198 H (39-117) U/L Troponin I High Sens 6.0 5.9 (<3.5-17.0) ng/L B-Natriuretic Peptide 283 H (<100) pg/mL Total Protein 6.7 (6.5-8.0) g/dL Albumin 3.3 L (3.5-5.0) g/dL Lipase 26 (8-78) U/L Influenza Type A (PCR) NEGATIVE (Negative) Influenza Type B (PCR) NEGATIVE (Negative) RSV RNA Qual (PCR) NEGATIVE (Negative) SARS-CoV-2 RNA (RT-PCR) NEGATIVE (Negative) Independent Interpretation I performed an independent interpretation of an: EKG (A flutter with variable AV block at 80 b. p.m. otherwise normal intervals, no change from previous EKG.) and Plain X-Ray (No acute intrathoracic pathology.) Radiology Impression Discussion of test interpretation with radiology: I have reviewed the radiologist's reading. Discharge Plan Discharge Clinical Impression: Atypical chest pain, Hypomagnesemia Patient Disposition: Home, Self-Care Instructions: Chest Pain (ED) Prescriptions: No Action cyclobenzaprine 10 mg tablet 10 mg PO BEDTIME PRN (Reason: Painful muscle spasm) Qty: 30 0RF carbamazepine 200 mg Tablet 200 mg PO TID quetiapine 200 mg Tablet Extended Release 24 Hr 200 mg PO BEDTIME acetaminophen 325 mg Tablet 650 mg PO Q8H PRN (Reason: ARTHRITIS PAIN) aspirin 81 mg Tablet,Delayed Release (Dr/Ec) 81 mg PO DAILY furosemide 20 mg Tablet 20 mg PO DAILY Probiotic 3 billion cell capsule 3,000 mmu cells PO DAILY Rx Instructions: administer with a meal multivitamin Tablet 1 tab PO DAILY albuterol sulfate 2.5 mg /3 mL (0.083 %) Solution For Nebulization 2.5 mg INHALATION BID cholecalciferol (vitamin D3) 50 mcg (2,000 unit) capsule 50 mcg PO DAILY Qty: 90 3RF atorvastatin 80 mg tablet 80 mg PO DAILY Qty: 90 3RF Xarelto 20 mg tablet 20 mg PO QPM Qty: 90 1RF Rx Instructions: must administer with evening meal ammonium lactate 12 % cream 1 appl topical BID citalopram 40 mg tablet 40 mg PO DAILY ketorolac 0.5 % drops ophthalmic (eye) prednisolone acetate 1 % drops,suspension ophthalmic (eye) metoprolol tartrate 25 mg tablet 12.5 mg PO BID 90 Days Qty: 90 3RF Referrals: Molly Mcgowan MD [Primary Care Provider] - Vijay Han MD [Physician] - Print Language: Arabic
--- NOTE | 2024-05-10 19:36 | ECG_ITS ---
Test Reason : CHEST PAIN Blood Pressure : / mmHG Vent. Rate : 081 BPM Atrial Rate : 277 BPM P-R Int : 000 ms QRS Dur : 114 ms QT Int : 424 ms P-R-T Axes : 000 -68 014 degrees QTc Int : 492 ms Atrial flutter with variable A-V block Left anterior fascicular block Minimal voltage criteria for LVH, may be normal variant ( Shiv product ) Cannot rule out Anterior infarct , age undetermined Abnormal ECG When compared with ECG of 28-FEB-2024 07:29, Atrial flutter has replaced Atrial fibrillation Referred By: Josué Oliveira Electronically Signed By:SHELIA DELGADILLO MD
--- NOTE | 2024-05-10 20:17 | MHC.EDTECH ---
patient came in by ambulances with chest pain I was in the middle of a blood draw when I was done with my blood draw I went to do the ekg
[2024-05-10 20:57] LABS: MANUAL DIFF FLAG NO
[2024-05-10 21:03] LABS: Basophils Percent Auto 0.8 % (0-2); Eosinophils Absolute Auto 0.2 X10*3/uL (0.0-0.4); Eosinophils Percent Auto 5.5 % (0-4); Hematocrit 33.3 % (37.0-47.0); Hemoglobin 11.5 g/dl (12.0-16.0); Imm Gran Abs Auto 0.02 X10*3/uL (0.00-0.03); Imm Gran Pct Auto 0.5 % (0.0-0.4); Lymphocytes Absolute Auto 0.8 X10*3/uL (1.2-4.9); Lymphocytes Percent Auto 20.7 % (20-40); Mean Corpuscular HGB Conc 34.5 g/dl (31.0-35.0); Mean Corpuscular Hemoglobin 29.7 pg (27.0-33.0); Mean Platelet Volume 10.6 fL (9.4-12.3); Monocytes Absolute Auto 0.7 X10*3/uL (0.1-1.2); Monocytes Percent Auto 18.6 % (2-11); Neutrophils Absolute Auto 2.1 x10*3/uL (2.0-8.3); Neutrophils Percent Auto 53.9 % (45-73); Platelet Count 119 X10*3/uL (160-400); Red Blood Count 3.87 X10*6/uL (4.20-5.50); Red Cell Distribution Width 13.2 % (11.0-16.0)
[2024-05-10 21:24] LABS: Alanine Aminotransferase 19 U/L (0-31); Albumin Level 3.3 g/dL (3.5-5.0); Alkaline Phosphatase 198 U/L (39-117); Anion Gap 11 (12-20); Aspartate Amino Transferase 38 U/L (5-31); Bilirubin Direct 0.3 mg/dL (0.0-0.5); Bilirubin Total 0.6 mg/dL (0.0-1.0); Blood Urea Nitrogen 12 mg/dL (9-16); Calcium 8.5 mg/dL (8.4-10.2); Carbon Dioxide 23 mmol/L (22-29); Chloride 106 mmol/L (96-108); Creatinine Clr Calc Pharmacy 68.3; Estimated Glomerular Filt Rate > 60; Glucose Random 113 mg/dL (60-115); Lipase 26 U/L (8-78); Magnesium 1.4 mg/dL (1.6-2.6); Potassium 3.8 mmol/L (3.3-5.1); Sodium 136 mmol/L (135-145); Total Protein 6.7 g/dL (6.5-8.0)
[2024-05-10 21:25] LABS: B Type Natriuretic Peptide 283 pg/mL (<100)
[2024-05-10 21:36] LABS: Influenza A PCR NEGATIVE (Negative); Influenza B PCR NEGATIVE (Negative); Resp Syncy Virus RNA Qual PCR NEGATIVE (Negative); SARS COV2 PCR INHOUSE NEGATIVE (Negative)
[2024-05-10] MEDS: Magnesium Sulfate/H2O 2 GM/50 ML PIGGYBACK IV (21:54)
[2024-05-10 22:44] LABS: Troponin-I High Sensitivity 5.9 ng/L (<3.5-17.0)
[2024-05-10 23:08] VITALS: BP 135/67; PULSE 62; RESP 13; TEMP 36.7; O2SAT 95
[2024-05-11 01:00] VITALS: BP 115/77; PULSE 64; RESP 17; TEMP 36.7; O2SAT 96
[2024-05-11 02:13] VITALS: BP 115/77; PULSE 64; RESP 17; TEMP 36.7; O2SAT 96
== END 2024-05-11 02:13 | disposition home or self-care (01) ==
PROVIDERS: Emergency Provider Emergency Medicine; PCP Internal Medicine
DX: R07.89 Other chest pain (principal); E83.42 Hypomagnesemia; I10 Essential (primary) hypertension; E78.5 Hyperlipidemia, unspecified; I48.19 Other persistent atrial fibrillation; Z79.82 Long term (current) use of aspirin; Z79.899 Other long term (current) drug therapy; Z79.01 Long term (current) use of anticoagulants; Z87.891 Personal history of nicotine dependence; Z85.038 Personal history of other malignant neoplasm of large intestine; Z95.1 Presence of aortocoronary bypass graft; Z03.818 Encounter for observation for suspected exposure to other biological agents ruled out
CPT/HCPCS: 0241U; 36415; 71045; 80048; 80076; 83690; 83735; 83880; 84484; 85025; 93005; 96365; 96366; 99285; J3475

== ENCOUNTER → 2024-05-10 19:36 | Outpatient (BNV) | payer MEDICARE, SELFPAY | PROVIDERS: Emergency Provider Emergency Medicine; PCP Internal Medicine; Visit Provider Internal Medicine Cardiovascular Disease | DX: R07.9 Chest pain, unspecified (principal) | CPT/HCPCS: 93010 ==

== ENCOUNTER 2024-05-15 17:34 | Inpatient (IN) | payer MEDICARE, SELFPAY ==
--- NOTE | ~2024-05-15 | CT_ITS ---
EXAMINATION: CT ABDOMEN AND PELVIS WITH CONTRAST CLINICAL INFORMATION: Mid abdominal pain, nausea and vomiting. COMPARISON: CT abdomen and pelvis 02/28/2024 TECHNIQUE: Multidetector volumetric images were obtained from the superior aspect of the liver through the pubic symphysis following administration 85 mL of Omnipaque 350 intravenous contrast. Sagittal and coronal reformatted images were obtained on the technologist's workstation. Oral contrast: No This CT examination was performed using dose optimization techniques as appropriate, variously including the following: *Automated exposure control *Adjustment of mA and/or kV according to patient size (this includes techniques or standardized protocols for targeted exams where dose is matched to indication/reason for exam; i.e. extremities or head) *Use of iterative reconstruction technique DLP: 673 mGy-cm FINDINGS: LUNG BASES: There is mitral valve calcification. Heart size is normal. The lung bases are clear. LIVER, GALLBLADDER, AND BILIARY TREE: The liver is normal in size, shape, and attenuation. No focal hepatic lesion or biliary ductal dilatation is present. The gallbladder has been surgically removed.. PANCREAS: Unremarkable. SPLEEN: Unremarkable. ADRENAL GLANDS: Unremarkable. KIDNEYS AND URETERS: The kidneys are normal in size, shape, and attenuation. No hydronephrosis, hydroureter, or calculi seen. No perinephric stranding. BLADDER: Unremarkable. GASTROINTESTINAL TRACT: There is gastric band noted below the GE junction. There are postsurgical changes involving adjacent several levels or small bowel with distended but small bowel with air-fluid levels. There is small bowel segment of mural thickening and narrowing on coronal image likely low-grade obstruction. This could be secondary to inflammatory process or adhesions. There is nonspecific mild mural thickening involving the ascending colon with diverticuli but no diverticulitis suspected. There is diffuse haziness seen throughout the mesentery without any abscess, free air or free fluid. Postsurgical changes are seen in the sigmoid colon with an to slight anastomosis and patent anastomosis. There is blind ending loop of sigmoid colon. ABDOMINAL WALL: There are postsurgical scarring but no evidence of hernia along the anterior wall LYMPH NODES: Normal. VASCULAR: Unremarkable. PELVIC VISCERA: Unremarkable. OSSEOUS STRUCTURES: No aggressive lytic or sclerotic process seen. Is mild degenerative disc changes with spondylosis L1-L2 disc level. CT/CT abdomen pelvis w IV con IMPRESSION: 1. Postsurgical changes involving the small bowel with distended small bowel loops with air-fluid levels. There is a segment of small bowel mural thickening and narrowing on coronal image likely low-grade obstruction. There is diffuse haziness seen throughout the mesentery without any abscess, free air or free fluid. 2. There is a gastric band noted below the GE junction. 3. There is mild mural thickening involving the ascending colon with scattered diverticuli but no diverticulitis suspected. Suspect colitis. 4. Recommend barium small bowel follow-through. Fleischner guidelines were followed.
--- NOTE | ~2024-05-15 | XR_ITS ---
EXAMINATION: PORTABLE CHEST 1 VIEW CLINICAL INFORMATION: NGT placement. COMPARISON: 05/10/2024 chest x-ray. TECHNIQUE: Portable frontal view of the chest was obtained. FINDINGS: Lungs are hyperexpanded with chronic appearing coarse reticular markings seen. There is central vascular prominence and I cannot exclude a component of mild edema on chronic changes. No significant effusion or pneumothorax. Patient is status post sternotomy with prominent mitral annular calcification. Nasogastric tube is in place with the tip likely coiled in the fundal aspect of the stomach. Cervical spine hardware noted. No acute bony abnormality XR/XR chest 1V IMPRESSION: Nasogastric tube tip likely coiled in the fundal aspect of the stomach. Chronic appearing and postoperative changes otherwise. Central vascular prominence suggesting mild edema on chronic changes.
--- NOTE | ~2024-05-15 | FL_ITS ---
EXAMINATION: FL SMALL BOWEL SERIES CLINICAL INFORMATION: SBO. COMPARISON: No prior. CT abdomen pelvis dated prior day. TECHNIQUE: Following a knit goods washer image of the abdomen, contrast was administered orally, and interval abdominal radiographs were performed to assess for contrast progression through the small bowel. 240 mL of Gastroview were administered by So NAZARIO via NG tube. Following contrast transit through the small bowel and into the colon, multiple overhead radiographs were obtained. No fluoroscopy was utilized. FINDINGS: Review of the CT examination from prior day demonstrates small bowel dilatation to the level of an anastomotic suture line in the distal ileum right lower quadrant, with completely decompressed terminal ileum, highly suspicious for adhesions versus anastomotic stricture. In addition, there is clear robust wall thickening of the descending and proximal transverse colon, consistent with colitis. There is wall thickening of the most proximal jejunum with associated full thickening, suggesting jejunal inflammation. There is interloop ascites in this region. The splenic flexure, descending colon, sigmoid colon, and rectum appear normal. Logistician image of the abdomen demonstrates a few mildly dilated loops of small bowel in the central abdomen. An NG tube is curled within the gastric fundus. There is a gastric band device in place, with normal phi angle. There are cholecystectomy clips. No free intraperitoneal air. There are surgical clips anterior to the heart. Mild cardiomegaly with dense calcification of the mitral valve annulus noted. Lung bases demonstrate mild linear type atelectasis. Logistician view of the pelvis demonstrates anastomotic sutures seen right lower quadrant just above the right SI joint. There is contrast from prior CT within the urinary bladder. Extensive enthesopathy is present in the gluteal insertions, greater and lesser trochanters. Mild osteoarthritic changes of both hip joints are present. No suspicious bone lesions seen. After contrast administration, immediate overhead radiographs demonstrate progression of contrast into the mid jejunum, which is mildly dilated. Normal jejunal fold pattern present. Small focus of contrast within the descending colon is present, of uncertain origin or significance. 30 minute images demonstrate contrast within the ascending colon, a decompressed terminal ileum, and throughout the entire small bowel. Contrast also seen in the left colon and rectum. Transit time is 30 minutes. For some reason, the examination was continued to 60 minutes, with images demonstrating similar findings. FL/FL small bowel follow through IMPRESSION: 1. Low-grade small bowel obstruction suspected with transition point in the distal ileum at the site of a small bowel-small bowel anastomosis, suggesting strictures or possible adhesions as etiology. The terminal ileum leading into the ileocecal valve is completely decompressed. 2. Contrast seen in the right colon at 30 minutes, suggesting normal transit time. CT from prior day demonstrates diffuse wall thickening and inflammation of the ascending and proximal transverse colon consistent with colitis. This was not mentioned on the official reading of the CT examination. Also, there is no evidence of prior sigmoid anastomosis stenosis on that examination. 3. Gastric band device in place without evidence of slippage. Cholecystectomy clips in place. Additional ancillary findings as discussed in the body of the report.
[2024-05-15 17:37] VITALS: BP 124/70; PULSE 93; O2SAT 95
--- NOTE | 2024-05-15 17:38 | ECG_ITS ---
Test Reason : HX AFIB Blood Pressure : / mmHG Vent. Rate : 101 BPM Atrial Rate : 000 BPM P-R Int : 000 ms QRS Dur : 120 ms QT Int : 344 ms P-R-T Axes : 000 -72 025 degrees QTc Int : 446 ms Atrial flutter with rapid ventricular response Right bundle branch block Left anterior fascicular block Bifascicular block Possible Lateral infarct (cited on or before 10-MAY-2024) Abnormal ECG When compared with ECG of 10-MAY-2024 19:59, No significant changes seen Referred By: Laureen Hunter Electronically Signed By:JACEK JOYA
[2024-05-15 17:39] VITALS: BP 105/60; PULSE 100; RESP 18; TEMP 37.3; O2SAT 94; BMI 37.3
[2024-05-15 18:22] LABS: MANUAL DIFF FLAG NO
[2024-05-15] MEDS: 0.9 % Sodium Chloride 1,000 ML 999 ML IV (18:27)
--- NOTE | 2024-05-15 18:27 | ED.ABDPAIN ---
HPI - Abdominal Pain General Chief Complaint: Abdominal Pain Stated Complaint: N/V, NO BOWEL MOVEMENT X4 DAYS, AFIB 100-115 Time Seen by Provider: 05/15/24 17:38 Source: patient Mode of arrival: EMS Limitations: no limitations History of Present Illness HPI narrative: Patient is a 68-year-old female with past medical history of cervical radiculopathy, DJD, hypertension, hyperlipidemia, CAD, atrial fibrillation on Xarelto, colon cancer stage III s/p chemo and colon resection in remission since 2016 with multiple subsequent bowel obstructions (6 prior with most recent approximately 1 month ago) who presents emergency department via EMS for evaluation of abdominal pain nausea vomiting lack of bowel movement for 3 days with expressed concern for bowel obstruction. Experiencing multiple episodes of yellow/green emesis, persistent nausea, mid abdominal pain that is constant in nature. Reports last bowel movement was 2 nights ago described as diarrhea. She denies associated chest pain, palpitations, shortness of breath, difficulty breathing, back pain, genitourinary symptoms, hematochezia, melena. Related Data Home Medications ?Medication ?Instructions ?Recorded ?Confirmed acetaminophen 325 mg tablet 650 mg PO Q8H PRN ARTHRITIS PAIN 01/09/24 05/08/24 aspirin 81 mg tablet,delayed 81 mg PO DAILY 01/09/24 05/08/24 release carbamazepine 200 mg tablet 200 mg PO TID 01/09/24 05/08/24 citalopram 40 mg tablet 40 mg PO DAILY 01/09/24 05/08/24 furosemide 20 mg tablet 20 mg PO DAILY 01/09/24 05/08/24 quetiapine 200 mg tablet,extended 200 mg PO BEDTIME 01/09/24 05/08/24 release 24 hr ammonium lactate 12 % topical cream 1 appl topical BID 02/06/24 05/08/24 albuterol sulfate 2.5 mg/3 mL 2.5 mg inhalation BID 02/28/24 05/08/24 (0.083 %) solution for nebulization multivitamin 1 tab PO DAILY 02/28/24 05/08/24 lactobacillus combination no.4 3 3,000 mmu cells PO DAILY 04/10/24 05/08/24 billion cell capsule (Probiotic) ketorolac 0.5 % eye drops drp ophthalmic (eye) 04/13/24 05/08/24 prednisolone acetate 1 % eye drp ophthalmic (eye) 04/13/24 05/08/24 drops,suspension Previous Rx's ?Medication ?Instructions ?Recorded rivaroxaban 20 mg tablet (Xarelto) 20 mg PO QPM #90 tabs 03/13/24 cyclobenzaprine 10 mg tablet 10 mg PO BEDTIME PRN Painful 03/21/24 muscle spasm #30 tabs metoprolol tartrate 25 mg tablet 12.5 mg (1/2 x 25 mg) PO BID 90 04/11/24 days #90 tabs atorvastatin 80 mg tablet 80 mg PO DAILY #90 tabs 05/07/24 cholecalciferol (vitamin D3) 50 50 mcg PO DAILY #90 caps 05/07/24 mcg (2,000 unit) capsule Allergies Allergy/AdvReac Type Severity Reaction Status Date / Time No Known Allergies Allergy Verified 05/15/24 17:40 Review of Systems Review of Systems Yes all other systems are reviewed and are negative PMFSH Past Medical History Attestation statement: The following information was validated with the patient. Source: old records reviewed Medical History Unsteady gait Thrombocytopenia Anemia Atrial fibrillation Cervical radiculopathy due to degenerative joint disease of spine Essential hypertension Hyperlipidemia History of radius fracture Former cigarette smoker Degenerative disc disease, cervical CAD (coronary artery disease) Hx of colon cancer, stage III Surgical History History of esophagogastroduodenoscopy (EGD) History of surgery on right wrist History of tonsillectomy History of resection of small bowel History of parotidectomy History of lysis of adhesions Hx of laparoscopic adjustable gastric banding History of exploratory laparotomy Hx laparoscopic cholecystectomy Hx of colonoscopy History of cardiac catheterization History of bunionectomy History of appendectomy History of cervical discectomy History of cervical corpectomy History of fusion of cervical spine Hx of two vessel coronary artery bypass graft Family History Family History Sister Substance use disorder Insulin dependent type 1 diabetes mellitus Mother Colon cancer Breast cancer Coronary artery disease High cholesterol Essential hypertension Social History Social History Household Members: None Housing: Apartment Do you presently have visiting nurse or other home services: No Alcohol intake: current Alcohol intake frequency: holidays/special occasions only Patient Tobacco Use Status: Former Tobacco user Smoked in Last 30 Days: No e-Cigarette/Vaping Use: Never Used Use of substances other than those prescribed or required for medical reasons: No Advance Directives: Yes Advance Directives on File: Yes Advance Directives Date on File: 03/02/24 Do you have a plan to hurt others: No Plan Nutrition Risks: No Nutritional Risk service: No Current occupational status: retired Cognitive needs: No Hearing needs: No Vision needs: Yes Physical Exam ED Vital Signs: Vital Signs - 24 hr 05/15/24 17:39 05/15/24 19:57 Temperature 99.1 F 98.9 F Pulse Rate 100 103 H Respiratory Rate 18 16 Blood Pressure 105/60 100/67 Pulse Oximetry 94 97 Oxygen Delivery Method Room Air Room Air BMI result Body Mass Index 37.3 Appearance: Alert.?Oriented to person, place and time. No acute distress.?Normal affect. Eyes: Pupils equal, round and reactive to light.? ENT: Pharynx normal.?? Neck: Normal inspection.? Neck supple.?? CVS: Heart sounds normal. Normal heart rate and rhythm.? Pulses normal.?? Respiratory: No respiratory distress.? Lung sounds clear to auscultation bilaterally?? Abdomen: Semifirm with diffuse tenderness along the mid abdomen, no rigidity or guarding. Normoactive bowel sounds. No pulsatile mass.?? Skin: Skin warm and dry.? Normal skin color.? Extremities: No lower extremity edema.? No calf ttp? Neuro: Moves all extremities spontaneously. Sensation intact bilaterally. Course Reevaluation(s) Reevaluation #1: CT revealing evidence concerning for low-grade bowel obstruction, mural thickening of the ascending colon suspicious for colitis. Discussed this case with surgery, Dr. Christy, plan for admission to surgical service, with hospitalist for medicine consult. NGT to be placed. Patient updated on plan of care. Medical Decision Making Medical Decision Making MDM Narrative: Patient is a 68-year-old female with past medical history of cervical radiculopathy, DJD, hypertension, hyperlipidemia, CAD, atrial fibrillation on Xarelto, colon cancer stage III s/p chemo and colon resection in remission since 2017 with multiple subsequent bowel obstructions as per HPI who presents emergency department for evaluation of abdominal pain nausea vomiting lack of bowel movement for 3 days with expressed concern for bowel obstruction. Will obtain CBC to evaluate for leukocytosis/ anemia, CMP and lipase to evaluate for abnormal electrolytes /abnormal renal function/ abnormal hepatic/biliary function, EKG to evaluate for ischemia/arrhythmia. CT of the abdomen and pelvis and Urinalysis. EKG reveals atrial fibrillation with RVR ranging 90s-105, borderline blood pressure, would defer the beta-victoria was at this time, will monitor rate closely and treat accordingly persistent elevated right Differential Diagnosis Differential Diagnoses: The differential diagnosis associated with the presentation includes (SBO, gastroenteritis, diverticulitis, malignancy) Admission/Observation Consideration of admission/observation: Escalation of care including admission/observation considered Lab Data MDM Lab Attestation statement: I reviewed the patient's lab results. CBC is without leukocytosis or anemia, mild thrombocytopenia consistent with baseline. No electrolyte derangement. No LION. No lactic acidosis. 05/15/24 18:15 05/15/24 18:15 Labs: Lab Results 05/15/24 05/15/24 Range/Units 18:15 19:27 WBC 6.0 (4.8-10.8) X10*3/uL RBC 4.37 (4.20-5.50) X10*6/uL Hgb 12.9 (12.0-16.0) g/dl Hct 38.3 (37.0-47.0) % MCV 87.6 (80.0-98.0) fL MCH 29.5 (27.0-33.0) pg MCHC 33.7 (31.0-35.0) g/dl RDW 13.2 (11.0-16.0) % Plt Count 117 L (160-400) X10*3/uL MPV 10.5 (9.4-12.3) fL Immature Gran % (Auto) 0.2 (0.0-0.4) % Neut % (Auto) 76.4 H (45-73) % Lymph % (Auto) 9.4 L (20-40) % [place] % (Auto) 12.7 H (2-11) % Eos % (Auto) 1.0 (0-4) % Baso % (Auto) 0.3 (0-2) % Lymph # (Auto) 0.6 L (1.2-4.9) X10*3/uL [place] # (Auto) 0.8 (0.1-1.2) X10*3/uL Eos # (Auto) 0.1 (0.0-0.4) X10*3/uL Baso # (Auto) 0.0 (0.0-0.2) X10*3/uL Abs Immat Gran (auto) 0.01 (0.00-0.03) X10*3/uL Absolute Neuts (auto) 4.6 (2.0-8.3) x10*3/uL Absolute Nucleated RBC 0.000 (0.0-0.012) X10*3/uL Nucleated RBC % (auto) 0.0 (0.0-0.2) /100WBC Sodium 136 (135-145) mmol/L Potassium 4.6 D (3.3-5.1) mmol/L Chloride 102 (96-108) mmol/L Carbon Dioxide 25 (22-29) mmol/L Anion Gap 14 (12-20) BUN 15 (9-16) mg/dL Creatinine 0.93 (0.5-1.4) mg/dL Estim Creat Clear Calc 56.6 Estimated GFR 60 Random Glucose 121 H (60-115) mg/dL Lactic Acid 1.8 (0.5-2.0) mmol/L Calcium 9.2 D (8.4-10.2) mg/dL Magnesium 1.5 L (1.6-2.6) mg/dL Total Bilirubin 1.1 H (0.0-1.0) mg/dL AST 50 H (5-31) U/L ALT 24 (0-31) U/L Alkaline Phosphatase 224 H (39-117) U/L Total Protein 7.3 (6.5-8.0) g/dL Albumin 3.6 (3.5-5.0) g/dL Lipase 14 (8-78) U/L Influenza Type A (PCR) NEGATIVE (Negative) Influenza Type B (PCR) NEGATIVE (Negative) RSV RNA Qual (PCR) NEGATIVE (Negative) SARS-CoV-2 RNA (RT-PCR) NEGATIVE (Negative) Independent Interpretation I performed an independent interpretation of an: EKG Interpretation: Rate:101 Rhythm:? AFib RVR Normal QRS complex.?? ST T wave :??No ST elevation, no ST depression qTC: 446 prior studies:? April 2024 The study has been interpreted contemporaneously by me. Radiology Impression Discussion of test interpretation with radiology: I have reviewed the radiologist's reading. Radiologist Impression: CT/CT abdomen pelvis w IV con IMPRESSION: 1. Postsurgical changes involving the small bowel with distended small bowel loops with air-fluid levels. There is a segment of small bowel mural thickening and narrowing on coronal image likely low-grade obstruction. There is diffuse haziness seen throughout the mesentery without any abscess, free air or free fluid. 2. There is a gastric band noted below the GE junction. 3. There is mild mural thickening involving the ascending colon with scattered diverticuli but no diverticulitis suspected. Suspect colitis. 4. Recommend barium small bowel follow-through. External Record Review External record reviewed: Outpatient record Medications Administered Generic Name Dose Route Start Last Admin Trade Name Freq PRN Reason Stop Dose Admin Lactated Ringer's 1,000 mls @ 100 mls/hr 05/15/24 21:30 05/15/24 22:25 Lr IVCONT 100 mls/hr .Q10H LAURA Administration Sodium Chloride 3 ml 05/16/24 00:00 05/16/24 01:10 0.9 % Sodium Chloride Flush 3 Ml Syringe IVFLUSH Not Given QSHIFT LAURA Discontinued Medications Generic Name Dose Route Start Last Admin Trade Name Freq PRN Reason Stop Dose Admin Sodium Chloride 1,000 mls @ 999 mls/hr 05/15/24 18:15 05/15/24 19:28 Ns IV 05/15/24 19:15 Infused .Q1H1M LAURA Infusion Magnesium Sulfate 2 gm in 50 mls @ 25 mls/hr 05/15/24 22:25 05/16/24 01:10 Magnesium Sulfate/H2o IV 05/16/24 00:24 Infused ONCE ONE Infusion Iohexol 100 ml 05/15/24 19:04 05/15/24 19:04 Iohexol 350 Mg/Ml 100 Ml Infus..Btl IV 05/15/24 19:05 85 ml ONCE ONE Administration Morphine Sulfate 4 mg 05/15/24 18:10 05/15/24 18:48 Morphine Sulfate 4 Mg/Ml Cartridge IVPUSH 05/15/24 18:11 4 mg ONCE ONE Administration Protocol Ondansetron HCl 4 mg 05/15/24 18:10 05/15/24 18:48 Ondansetron Hcl 4 Mg/2 Ml Vial IVPUSH 05/15/24 18:11 4 mg ONCE ONE Administration Critical Care Time Critical Care Time Critical Care Time: Yes Total Critical Care Time: 35 Attestation: I personally attest to this critical care time spent taking care of the patient exclusive of all other billable procedures was approximately 35 minutes including initial evaluation of patient, ordering tests, IV morphine for pain management and re-evaluation, EKG interpretation, medical consultation, documentation, re-evaluation. Discharge Plan Discharge Clinical Impression: Small bowel obstruction, Persistent atrial fibrillation Patient Disposition: Admitted As Inpatient
[2024-05-15 18:39] LABS: Alanine Aminotransferase 24 U/L (0-31); Albumin Level 3.6 g/dL (3.5-5.0); Alkaline Phosphatase 224 U/L (39-117); Anion Gap 14 (12-20); Aspartate Amino Transferase 50 U/L (5-31); Bilirubin Total 1.1 mg/dL (0.0-1.0); Blood Urea Nitrogen 15 mg/dL (9-16); Calcium 9.2 mg/dL (8.4-10.2); Carbon Dioxide 25 mmol/L (22-29); Chloride 102 mmol/L (96-108); Creatinine Clr Calc Pharmacy 56.6; Estimated Glomerular Filt Rate 60; Glucose Random 121 mg/dL (60-115); Lipase 14 U/L (8-78); Magnesium 1.5 mg/dL (1.6-2.6); Potassium 4.6 mmol/L (3.3-5.1); Sodium 136 mmol/L (135-145); Total Protein 7.3 g/dL (6.5-8.0)
[2024-05-15 18:46] LABS: Basophils Percent Auto 0.3 % (0-2); Eosinophils Absolute Auto 0.1 X10*3/uL (0.0-0.4); Hematocrit 38.3 % (37.0-47.0); Hemoglobin 12.9 g/dl (12.0-16.0); Imm Gran Abs Auto 0.01 X10*3/uL (0.00-0.03); Imm Gran Pct Auto 0.2 % (0.0-0.4); Lymphocytes Absolute Auto 0.6 X10*3/uL (1.2-4.9); Lymphocytes Percent Auto 9.4 % (20-40); Mean Corpuscular HGB Conc 33.7 g/dl (31.0-35.0); Mean Corpuscular Hemoglobin 29.5 pg (27.0-33.0); Mean Corpuscular Volume 87.6 fL (80.0-98.0); Mean Platelet Volume 10.5 fL (9.4-12.3); Monocytes Absolute Auto 0.8 X10*3/uL (0.1-1.2); Monocytes Percent Auto 12.7 % (2-11); Neutrophils Absolute Auto 4.6 x10*3/uL (2.0-8.3); Neutrophils Percent Auto 76.4 % (45-73); Platelet Count 117 X10*3/uL (160-400); Red Blood Count 4.37 X10*6/uL (4.20-5.50); Red Cell Distribution Width 13.2 % (11.0-16.0)
[2024-05-15] MEDS: Morphine Sulfate 4 MG/ML CARTRIDGE IVPUSH (18:48)
[2024-05-15] MEDS: ondansetron HCL 4 MG/2 ML VIAL IVPUSH (18:48)
[2024-05-15] MEDS: iohexoL 350 MG/ML 100 ML INFUS..BTL IV (19:04)
[2024-05-15 19:05] LABS: Influenza A PCR NEGATIVE (Negative); Influenza B PCR NEGATIVE (Negative); Resp Syncy Virus RNA Qual PCR NEGATIVE (Negative); SARS COV2 PCR INHOUSE NEGATIVE (Negative)
[2024-05-15 19:48] LABS: Lactic Acid 1.8 mmol/L (0.5-2.0)
[2024-05-15 19:57] VITALS: BP 100/67; PULSE 103; RESP 16; TEMP 37.2; O2SAT 97
[2024-05-15] MEDS: Lactated Ringers 1,000 ML 100 ML IVCONT (22:25)
[2024-05-15] MEDS: Magnesium Sulfate/H2O 2 GM/50 ML PIGGYBACK IV (23:09)
[2024-05-15 23:20] VITALS: BP 105/70; PULSE 100; RESP 16; TEMP 36.9; O2SAT 96
[2024-05-16 05:11] LABS: Anion Gap 14 (12-20); Blood Urea Nitrogen 16 mg/dL (9-16); Carbon Dioxide 22 mmol/L (22-29); Chloride 104 mmol/L (96-108); Creatinine Clr Calc Pharmacy 57.8; Estimated Glomerular Filt Rate > 60; Glucose Random 102 mg/dL (60-115); Potassium 3.8 mmol/L (3.3-5.1); Sodium 136 mmol/L (135-145)
[2024-05-16 05:12] VITALS: BP 98/65; PULSE 74; RESP 16; TEMP 37.2; O2SAT 95
[2024-05-16 07:28] VITALS: BP 111/65; PULSE 88; RESP 16; TEMP 36.8; O2SAT 93
[2024-05-16] MEDS: Lactated Ringers 1,000 ML 100 ML IVCONT ×2 (08:11→20:34)
[2024-05-16] MEDS: 0.9 % Sodium Chloride Flush 3 ML SYRINGE IVFLUSH (08:12)
--- NOTE | 2024-05-16 08:20 | PM.HPGS ---
History of Present Illness History of Present Illness Date of Service: 05/16/24 Chief complaint: sbo Narrative: Deidre To is a 68 year old female with extensive PMH significant for hypertension, hyperlipidemia, CAD, atrial fibrillation on Xarelto, aortic stenosis, who presented to the ED with complaints of abdominal pain. She reports the pain began on Tuesday and was diffuse. She developed nausea, vomiting. She initially had diarrhea however has had no flatus or BM in 2 days. Her abdomen became distended and firm and given concern for obstruction she sought care in the ED. She is from [place] and has had multiple previous abdominal surgeries including history of sigmoid resection, ileostomy for colon cancer in 2017 with subsequent reversal, cholecystectomy, gastric band. She has had multiple episodes of SBOs, all managed nonoperatively. Work up in the ED included CBC, BMP, LFTs. Lactic acid was normal. CT scan was performed which showed dilated small bowel with mural thickening and narrowing concerning for obstruction with diffuse haziness seen throughout the mesentery and mild mural thickening involving the ascending colon. She denies fever, chills, hematemesis, melena, BRBPR, sick contacts. She has a history of coronary disease and had 2 vessel bypass 5 years ago. She was recently seen in the ED for evaluation of chest pain. She f/u with cardiology and is awaiting holter monitor, myocardial perfusion imaging study. Review of Systems Constitutional: Constitutional: Denies chills and Denies fever(s) ENT: Denies dizziness Cardiovascular: Cardiovascular: Denies chest pain and Denies dyspnea Respiratory: Respiratory: Denies dyspnea Gastrointestinal: Gastrointestinal: Reports as per HPI, Denies melena, Denies hematochezia, Reports nausea, Reports vomiting and Denies hematemesis Integumentary/Breasts: Skin/Breast: Denies rash and Denies jaundice Neurologic: Denies dizziness PMFSH Past Medical History Medical History Unsteady gait Thrombocytopenia Anemia Atrial fibrillation Cervical radiculopathy due to degenerative joint disease of spine Essential hypertension Hyperlipidemia History of radius fracture Former cigarette smoker Degenerative disc disease, cervical CAD (coronary artery disease) Hx of colon cancer, stage III Family History Family History Sister Substance use disorder Insulin dependent type 1 diabetes mellitus Mother Colon cancer Breast cancer Coronary artery disease High cholesterol Essential hypertension Surgical History Surgical History History of esophagogastroduodenoscopy (EGD) History of surgery on right wrist History of tonsillectomy History of resection of small bowel History of parotidectomy History of lysis of adhesions Hx of laparoscopic adjustable gastric banding History of exploratory laparotomy Hx laparoscopic cholecystectomy Hx of colonoscopy History of cardiac catheterization History of bunionectomy History of appendectomy History of cervical discectomy History of cervical corpectomy History of fusion of cervical spine Hx of two vessel coronary artery bypass graft Social History Social History Household Members: None Housing: Apartment Do you presently have visiting nurse or other home services: No Alcohol intake: current Alcohol intake frequency: holidays/special occasions only Patient Tobacco Use Status: Former Tobacco user Smoked in Last 30 Days: No e-Cigarette/Vaping Use: Never Used Use of substances other than those prescribed or required for medical reasons: No Advance Directives: Yes Advance Directives on File: Yes Advance Directives Date on File: 03/02/24 Do you have a plan to hurt others: No Plan Nutrition Risks: No Nutritional Risk service: No Current occupational status: retired Cognitive needs: No Hearing needs: No Vision needs: Yes Meds Allergies Allergy/AdvReac Type Severity Reaction Status Date / Time No Known Allergies Allergy Verified 05/15/24 17:40 Active Medications: Current Medications Acetaminophen (Acetaminophen 325 Mg Tablet) 650 mg PO Q6H PRN PRN Reason: Pain, Mild (Pain Scale 1-3), fever or headache Calcium Carbonate (Calcium Carbonate 750 Mg Tab.Chew) 750 mg PO Q4H PRN PRN Reason: Heartburn Hydromorphone HCl (Hydromorphone Hcl 1 Mg/Ml Syringe) 0.5 mg IVPUSH Q4H PRN; Protocol PRN Reason: Pain, Severe (Pain Scale 7-10) Lactated Ringer's (Lr) 1,000 mls @ 100 mls/hr IVCONT .Q10H [facility] Last Admin: 05/16/24 08:11 Dose: 100 mls/hr Magnesium Hydroxide (Milk Of Magnesia 30 Ml Oral.Susp) 30 ml PO DAILY PRN PRN Reason: Constipation Melatonin (Melatonin 3 Mg Tablet) 6 mg PO BEDTIME PRN PRN Reason: Insomnia Ondansetron HCl (Ondansetron Hcl 4 Mg/2 Ml Vial) 4 mg IVPUSH Q8H PRN PRN Reason: Nausea and Vomiting Sodium Chloride (0.9 % Sodium Chloride Flush 3 Ml Syringe) 3 [facility] Last Admin: 05/16/24 08:12 Dose: 3 ml Home Medications ?Medication ?Instructions ?Recorded ?Confirmed ?Last Taken ?Type acetaminophen 325 mg tablet 650 mg PO Q8H PRN ARTHRITIS PAIN 01/09/24 05/16/24 05/15/24 History aspirin 81 mg tablet,delayed 81 mg PO DAILY 01/09/24 05/16/24 05/15/24 History release carbamazepine 200 mg tablet 200 mg PO TID 01/09/24 05/16/24 05/15/24 History citalopram 40 mg tablet 40 mg PO DAILY 01/09/24 05/16/24 05/15/24 History furosemide 20 mg tablet 20 mg PO DAILY 01/09/24 05/16/24 05/15/24 History quetiapine 200 mg tablet,extended 200 mg PO BEDTIME 01/09/24 05/16/24 05/13/24 History release 24 hr ammonium lactate 12 % topical cream 1 appl topical BID 02/06/24 05/16/24 05/15/24 History albuterol sulfate 2.5 mg/3 mL 2.5 mg inhalation BID 02/28/24 05/16/24 05/15/24 History (0.083 %) solution for nebulization multivitamin 1 tab PO DAILY 02/28/24 05/16/24 05/15/24 History lactobacillus combination no.4 3 3,000 mmu cells PO DAILY@0800 04/10/24 05/16/24 05/15/24 History billion cell capsule (Probiotic) ketorolac 0.5 % eye drops 1 drp ophthalmic-Left TID 04/13/24 05/16/24 05/15/24 History prednisolone acetate 1 % eye 1 drp ophthalmic-Left TID 04/13/24 05/16/24 05/15/24 History drops,suspension famotidine 40 mg tablet 40 mg PO DAILY 05/16/24 05/16/24 05/15/24 History rivaroxaban 20 mg tablet (Xarelto) 20 mg PO DAILY@1700 05/16/24 05/16/24 05/15/24 History temazepam 15 mg capsule 15 mg PO BEDTIME 05/16/24 05/16/24 05/13/24 History Physical Exam Vital Signs: Vital Signs: Last Vital Signs Temp 98.3 F 05/16/24 07:28 Pulse 88 05/16/24 07:28 Resp 16 05/16/24 07:28 BP 111/65 05/16/24 07:28 Pulse Ox 93 05/16/24 07:28 O2 Del Method Room Air 05/16/24 07:28 BMI result Body Mass Index 37.3 Const: General: comfortable, no acute distress and alert Orientation/consciousness: patient oriented x3 HEENT: Other: NGT in place, dark bilious output Resp: Effort & Inspection: normal respiratory effort GI: Inspection: Yes distended Palpation (GI): Soft to palpation, Tenderness to palpation present (GI) (mild diffuse, more increased lower abdomen ) and no guarding Percussion: Yes tympanic to percussion Skin: General skin exam: no rashes or lesions noted Neuro: General: patient oriented x3 and moves all extremities Results Results Labs: Short CBC 05/15/24 Range/Units 18:15 WBC 6.0 (4.8-10.8) X10*3/uL Hgb 12.9 (12.0-16.0) g/dl Hct 38.3 (37.0-47.0) % Plt Count 117 L (160-400) X10*3/uL BMP 05/15/24 05/16/24 18:15 04:18 Sodium 136 136 Potassium 4.6 D 3.8 Chloride 102 104 Carbon Dioxide 25 22 BUN 15 16 Creatinine 0.93 0.91 Calcium 9.2 D 9.0 Liver Function 05/15/24 Range/Units 18:15 Total Bilirubin 1.1 H (0.0-1.0) mg/dL AST 50 H (5-31) U/L ALT 24 (0-31) U/L Alkaline Phosphatase 224 H (39-117) U/L Albumin 3.6 (3.5-5.0) g/dL Abdomen CT scan report/results: report reviewed and image reviewed Assessment and Plan (1) Small bowel obstruction: Status: Acute Plan Deidre Campoli is a 68 year old female with extensive PMH including multiple abd surgeries and hx of SBOs who presented to the ED with complaints of abdominal pain, nausea, vomiting and obstipation with CT scan concerning for SBO. She has been admitted to the surgical service for further treatment of the SBO. She is nontoxic appearing with a benign abdomen with mild tenderness. She has no leukocytosis or lactic acidosis. SBFT will be obtained this morning with contrast through the NGT. Hopefully this will be therapeutic for her. Cont NGT for decompression, bowel rest, IVF, PRN analgesics for pain control. She understands that if she has worsening of overall clinical picture, she may need laparotomy. She currently looks well. Hospitalist consult will be obtained for management of her medical comorbidities. Quality Stroke Does the patient have a stroke diagnosis?: No VTE Prior VTE?: No VTE Risk Level:: Surgical - low VTE Device Contraindication: Treatment Not Indicated VTE Drug Contraindication: Treatment Not Indicated Procedures Date of Service Date of Service: 05/16/24
--- NOTE | 2024-05-16 08:21 | MHC.CM.PN ---
PT REPORTS SHE LIVES ALONE AND IS INDEPENDENT WITH CARE SHE HAS NO SERVICES AND USES A WALKER FOR DME PT HAS A HCP ON FILE SHE CONFIRMS IS ACCURATE PCP: [facility] DELIVERED DCP: HOME NO SERVICES VIA PRIVATE TRANSPORT
--- NOTE | 2024-05-16 08:39 | PHA.MEDREC ---
Pharmacy Consult ? Medication Reconciliation Pharmacy has completed the medication reconciliation. ?Patient was a good historian and confirmed all meds. Took her last Xarelto dose last night, 05/15.
--- NOTE | 2024-05-16 09:06 | HO.PM.IMCN ---
History of Present Illness Data of Consult Service Date: 05/16/24 Requesting physician: So Mullins Primary Care Provider: Molly Mcgowan MD [facility] Reason for consult: medical management 68 year old female with extensive PMH significant for hypertension, hyperlipidemia, CAD s/p cabg x2 2019, atrial fibrillation on Xarelto, aortic stenosis, recent cataract surgery, hx colon ca s/p ileostomy w/ reversal and chemo admitted general surgery for management of SBO with consult placed hospitalist service for medical management. She is currently being managed conservatively with NG tube in place and will be administered contrast through NG tube. She is also NPO for bowel rest. She currently reports she is comfortable and denies any pain. No recurrent nausea or vomiting. Denies any fevers, chills, urinary symptoms, diarrhea, lightheadedness, worsening shortness of breath from baseline, palpitations, or chest pain. Vital signs this morning are within normal limits. Hematology studies are significant for thrombocytopenia of 117, which is noted to be chronic and consistent with baseline. Renal function and electrolyte levels are normal. EKG had shown persistent atrial fibrillation initially with RVR, rate 101 improved with IV fluids, rate now controlled. Review of Systems Review of Systems: Yes all other systems are reviewed and are negative [facility] Medical History Unsteady gait Thrombocytopenia Anemia Atrial fibrillation Cervical radiculopathy due to degenerative joint disease of spine Essential hypertension Hyperlipidemia History of radius fracture Former cigarette smoker Degenerative disc disease, cervical CAD (coronary artery disease) Hx of colon cancer, stage III Family History Sister Substance use disorder Insulin dependent type 1 diabetes mellitus Mother Colon cancer Breast cancer Coronary artery disease High cholesterol Essential hypertension Surgical History History of esophagogastroduodenoscopy (EGD) History of surgery on right wrist History of tonsillectomy History of resection of small bowel History of parotidectomy History of lysis of adhesions Hx of laparoscopic adjustable gastric banding History of exploratory laparotomy Hx laparoscopic cholecystectomy Hx of colonoscopy History of cardiac catheterization History of bunionectomy History of appendectomy History of cervical discectomy History of cervical corpectomy History of fusion of cervical spine Hx of two vessel coronary artery bypass graft Social History Household Members: None Housing: Apartment Do you presently have visiting nurse or other home services: No Alcohol intake: current Alcohol intake frequency: holidays/special occasions only Patient Tobacco Use Status: Former Tobacco user e-Cigarette/Vaping Use: Never Used Advance Directives Date on File: 03/02/24 service: No Current occupational status: retired Cognitive needs: No Hearing needs: No Vision needs: Yes Meds Allergies Allergy/AdvReac Type Severity Reaction Status Date / Time No Known Allergies Allergy Verified 05/15/24 17:40 Active Medications: Current Medications Acetaminophen (Acetaminophen 325 Mg Tablet) 650 mg PO Q6H PRN PRN Reason: Pain, Mild (Pain Scale 1-3), fever or headache Calcium Carbonate (Calcium Carbonate 750 Mg Tab.Chew) 750 mg PO Q4H PRN PRN Reason: Heartburn Hydromorphone HCl (Hydromorphone Hcl 1 Mg/Ml Syringe) 0.5 mg IVPUSH Q4H PRN; Protocol PRN Reason: Pain, Severe (Pain Scale 7-10) Lactated Ringer's (Lr) 1,000 mls @ 100 mls/hr IVCONT .Q10H [facility] Last Admin: 05/16/24 08:11 Dose: 100 mls/hr Magnesium Hydroxide (Milk Of Magnesia 30 Ml Oral.Susp) 30 ml PO DAILY PRN PRN Reason: Constipation Melatonin (Melatonin 3 Mg Tablet) 6 mg PO BEDTIME PRN PRN Reason: Insomnia Ondansetron HCl (Ondansetron Hcl 4 Mg/2 Ml Vial) 4 mg IVPUSH Q8H PRN PRN Reason: Nausea and Vomiting Sodium Chloride (0.9 % Sodium Chloride Flush 3 Ml Syringe) 3 ml IVFLUSH QSHIFT [facility] Last Admin: 05/16/24 08:12 Dose: 3 ml Home Medications ?Medication ?Instructions ?Recorded ?Confirmed ?Last Taken ?Type acetaminophen 325 mg tablet 650 mg PO Q8H PRN ARTHRITIS PAIN 01/09/24 05/16/24 05/15/24 History aspirin 81 mg tablet,delayed 81 mg PO DAILY 01/09/24 05/16/24 05/15/24 History release carbamazepine 200 mg tablet 200 mg PO TID 01/09/24 05/16/24 05/15/24 History citalopram 40 mg tablet 40 mg PO DAILY 01/09/24 05/16/24 05/15/24 History furosemide 20 mg tablet 20 mg PO DAILY 01/09/24 05/16/24 05/15/24 History quetiapine 200 mg tablet,extended 200 mg PO BEDTIME 01/09/24 05/16/24 05/13/24 History release 24 hr ammonium lactate 12 % topical cream 1 appl topical BID 02/06/24 05/16/24 05/15/24 History albuterol sulfate 2.5 mg/3 mL 2.5 mg inhalation BID 02/28/24 05/16/24 05/15/24 History (0.083 %) solution for nebulization multivitamin 1 tab PO DAILY 02/28/24 05/16/24 05/15/24 History lactobacillus combination no.4 3 3,000 mmu cells PO DAILY@0800 04/10/24 05/16/24 05/15/24 History billion cell capsule (Probiotic) ketorolac 0.5 % eye drops 1 drp ophthalmic-Left TID 04/13/24 05/16/24 05/15/24 History prednisolone acetate 1 % eye 1 drp ophthalmic-Left TID 04/13/24 05/16/24 05/15/24 History drops,suspension famotidine 40 mg tablet 40 mg PO DAILY 05/16/24 05/16/24 05/15/24 History rivaroxaban 20 mg tablet (Xarelto) 20 mg PO DAILY@1700 05/16/24 05/16/24 05/15/24 History temazepam 15 mg capsule 15 mg PO BEDTIME 05/16/24 05/16/24 05/13/24 History Physical Exam Vital Signs and Narrative: Vital Signs: Last Vital Signs Temp 98.3 F 05/16/24 07:28 Pulse 88 05/16/24 07:28 Resp 16 05/16/24 07:28 BP 111/65 05/16/24 07:28 Pulse Ox 93 05/16/24 07:28 O2 Del Method Room Air 05/16/24 07:28 BMI result Body Mass Index 37.3 Constitutional - Awake and Alert, No apparent distress Eyes - PERRLA, EOMI Cardiovascular - S1S2, RRR, No edema Respiratory - Normal lung expansion, Normal respiratory effort, No respiratory distress, CTA bilaterally Extremities - no calf tenderness bilaterally, no swelling Skin - Warm/Dry Neurological - Alert & oriented x3 Psychological - Appropriate affect Results Labs 05/15/24 18:15 05/16/24 04:18 Labs: Laboratory Results - last 24 hr 05/15/24 05/15/24 05/16/24 18:15 19:27 04:18 MCV 87.6 MCH 29.5 MCHC 33.7 RDW 13.2 Plt Count 117 L MPV 10.5 Immature Gran % (Auto) 0.2 Neut % (Auto) 76.4 H Lymph % (Auto) 9.4 L [place] % (Auto) 12.7 H Eos % (Auto) 1.0 Baso % (Auto) 0.3 Lymph # (Auto) 0.6 L [place] # (Auto) 0.8 Eos # (Auto) 0.1 Baso # (Auto) 0.0 Abs Immat Gran (auto) 0.01 Absolute Neuts (auto) 4.6 Absolute Nucleated RBC 0.000 Nucleated RBC % (auto) 0.0 Anion Gap 14 14 Estim Creat Clear Calc 56.6 57.8 Estimated GFR 60 > 60 Random Glucose 121 H 102 Lactic Acid 1.8 Calcium 9.2 D 9.0 Magnesium 1.5 L 2.0 Total Bilirubin 1.1 H AST 50 H ALT 24 Alkaline Phosphatase 224 H Total Protein 7.3 Albumin 3.6 Lipase 14 Influenza Type A (PCR) NEGATIVE Influenza Type B (PCR) NEGATIVE RSV RNA Qual (PCR) NEGATIVE SARS-CoV-2 RNA (RT-PCR) NEGATIVE Imaging Radiologist's Impressions: Impressions Abdomen/Pelvis CT 05/15/24 19:19 IMPRESSION: 1. Postsurgical changes involving the small bowel with distended small bowel loops with air-fluid levels. There is a segment of small bowel mural thickening and narrowing on coronal image likely low-grade obstruction. There is diffuse haziness seen throughout the mesentery without any abscess, free air or free fluid. 2. There is a gastric band noted below the GE junction. 3. There is mild mural thickening involving the ascending colon with scattered diverticuli but no diverticulitis suspected. Suspect colitis. 4. Recommend barium small bowel follow-through. Fleischner guidelines were followed. Chest X-Ray 05/15/24 22:55 IMPRESSION: Nasogastric tube tip likely coiled in the fundal aspect of the stomach. Chronic appearing and postoperative changes otherwise. Central vascular prominence suggesting mild edema on chronic changes. Assessment and Plan (1) Small bowel obstruction: Status: Acute Plan 68 year old female with extensive PMH significant for hypertension, hyperlipidemia, CAD s/p cabg x2 2019, atrial fibrillation on Xarelto, aortic stenosis, recent cataract surgery, hx colon ca s/p ileostomy w/ reversal and chemo admitted general surgery for management of SBO with consult placed hospitalist service for medical management. #SBO -plan per general surgery, conservative management at this time # persistent atrial fibrillation-rate now controlled -hold Xarelto. Will initiate therapeutic Lovenox at 90 mg starting this evening -continue metoprolol for rate control #CAD s/p CABG x2 2019/hld -hold asa. Has thombocytopenia. Should clinical course worsen, pt should be administered platelets preoperatively if plt <50k -continue bb, statin -echo 02/2024 showed hyperdynamic LV systolic function EF >70%. mild aortic valve stenosis and mild aortic valve regurgitation, mild pulmonary htn. severely dilated left atrium #Cataract surgery -continue eye drops #HTN -continue metoprolol, lasix Thank you for this consult, will continue following along with you
[2024-05-16 09:39] VITALS: BP 170/84; PULSE 100; RESP 18; TEMP 36.3; O2SAT 95
[2024-05-16] MEDS: Ketorolac Tromethamine 0.5% Op 5 ML DROPS 1 DROP EYE-LEFT ×3 (10:18→20:45)
[2024-05-16] MEDS: Atorvastatin Calcium 80 MG TABLET PO (10:19)
[2024-05-16] MEDS: Furosemide 20 MG TABLET PO (10:19)
[2024-05-16] MEDS: Escitalopram Oxalate 20 MG TABLET PO (10:20)
[2024-05-16] MEDS: Metoprolol Tartrate 12.5 MG HALFTAB PO ×2 (10:20→20:31)
[2024-05-16] MEDS: QUEtiapine Fumarate 100 MG TABLET PO ×2 (10:20→20:31)
[2024-05-16] MEDS: carBAMazepine 200 MG TABLET PO ×3 (10:20→20:32)
[2024-05-16] MEDS: Diatrizoate Meglumine, Sodium 120 ML SOLUTION 240 ML PO (12:48)
[2024-05-16] MEDS: prednisoLONE Acetate 1 % Oph Susp 5 ML DRPBTL 1 DROP EYE-LEFT ×2 (14:14→20:45)
[2024-05-16 15:43] VITALS: BP 121/68; PULSE 96; RESP 18; TEMP 36.3; O2SAT 96
[2024-05-16] MEDS: Albuterol Sulfate (0.083%) 2.5 MG/3 ML VIAL.NEB INHALE (19:53)
[2024-05-16 19:58] VITALS: PULSE 82; RESP 12; O2SAT 96
[2024-05-16] MEDS: Enoxaparin Sodium 100 MG/ML SYRINGE 90 MG SUBCUT (20:31)
[2024-05-16] MEDS: Temazepam 15 MG CAPSULE PO (20:31)
[2024-05-16] MEDS: Cyclobenzaprine HCl 10 MG TABLET PO (20:31)
[2024-05-16] MEDS: Loperamide HCl 2 MG CAPSULE PO (22:31)
[2024-05-17 02:49] VITALS: BP 132/87; PULSE 86; RESP 18; TEMP 36.6; O2SAT 95
--- NOTE | 2024-05-17 06:07 | PC.NURSE ---
RN removed NG Tube and started clear liquid diet per orders from Dr. Christy, patient fluids hep lock if tolerating fluids. call harmon in reach. all needs met.
[2024-05-17 06:51] VITALS: BP 134/66; PULSE 95; RESP 17; TEMP 36.1; O2SAT 95
[2024-05-17 07:30] VITALS: PULSE 95; RESP 17; O2SAT 96
[2024-05-17] MEDS: Albuterol Sulfate (0.083%) 2.5 MG/3 ML VIAL.NEB INHALE (07:30)
[2024-05-17] MEDS: Ammonium Lactate 12 % Cream 140 GM TUBE 1 APPL TOPICAL (08:39)
[2024-05-17] MEDS: Ketorolac Tromethamine 0.5% Op 5 ML DROPS 1 DROP EYE-LEFT (08:39)
[2024-05-17] MEDS: Enoxaparin Sodium 100 MG/ML SYRINGE 90 MG SUBCUT (08:39)
[2024-05-17] MEDS: Cholecalciferol (Vitamin D3) 25 MCG TABLET 50 MCG PO (08:39)
[2024-05-17] MEDS: prednisoLONE Acetate 1 % Oph Susp 5 ML DRPBTL 1 DROP EYE-LEFT (08:39)
[2024-05-17] MEDS: Escitalopram Oxalate 20 MG TABLET PO (08:40)
[2024-05-17] MEDS: Furosemide 20 MG TABLET PO (08:40)
[2024-05-17] MEDS: Metoprolol Tartrate 12.5 MG HALFTAB PO (08:40)
[2024-05-17] MEDS: Famotidine 20 MG TABLET 40 MG PO (08:40)
[2024-05-17] MEDS: carBAMazepine 200 MG TABLET PO (08:40)
[2024-05-17] MEDS: Multivitamin TABLET 1 TAB PO (08:40)
[2024-05-17] MEDS: Atorvastatin Calcium 80 MG TABLET PO (08:41)
[2024-05-17 08:45] LABS: Anion Gap 15 (12-20); Blood Urea Nitrogen 15 mg/dL (9-16); Calcium 8.9 mg/dL (8.4-10.2); Carbon Dioxide 21 mmol/L (22-29); Chloride 108 mmol/L (96-108); Creatinine Clr Calc Pharmacy 68.3; Estimated Glomerular Filt Rate > 60; Glucose Fasting 89 mg/dL (60-99); Magnesium 1.7 mg/dL (1.6-2.6); Potassium 3.8 mmol/L (3.3-5.1); Sodium 140 mmol/L (135-145)
--- NOTE | 2024-05-17 10:26 | PM.PNGS ---
Subjective Subjective Date of Service: 05/17/24 Physical Exam Vital Signs: Vital Signs: Last Vital Signs Temp 97 F 05/17/24 06:51 Pulse 95 05/17/24 07:30 Resp 17 05/17/24 07:30 BP 134/66 05/17/24 06:51 Pulse Ox 95 05/17/24 06:51 O2 Del Method Room Air 05/17/24 06:51 BMI result Body Mass Index 37.3 Objective Data Active Medications Acetaminophen (Acetaminophen 325 Mg Tablet) 650 mg PO Q6H PRN PRN Reason: Pain, Mild (Pain Scale 1-3), fever or headache Albuterol Sulfate (Albuterol Sulfate (0.083%) 2.5 Mg/3 Ml Vial.Neb) 2.5 mg INHALE BID [facility] Last Admin: 05/17/24 07:30 Dose: 2.5 mg Documented By: DEANNA Atorvastatin Calcium (Atorvastatin Calcium 80 Mg Tablet) 80 mg PO DAILY [facility] Last Admin: 05/17/24 08:41 Dose: 80 mg Documented By: MAHIN Calcium Carbonate (Calcium Carbonate 750 Mg Tab.Chew) 750 mg PO Q4H PRN PRN Reason: Heartburn Carbamazepine (Carbamazepine 200 Mg Tablet) 200 mg PO TID [facility] Last Admin: 05/17/24 08:40 Dose: 200 mg Documented By: MAHIN Cyclobenzaprine HCl (Cyclobenzaprine Hcl 10 Mg Tablet) 10 mg PO BEDTIME PRN PRN Reason: Painful muscle spasm Last Admin: 05/16/24 20:31 Dose: 10 mg Documented By: MO Enoxaparin Sodium (Enoxaparin Sodium 100 Mg/Ml Syringe) 90 mg 1 mg/kg (90 mg) SUBCUT Q12H [facility] Last Admin: 05/17/24 08:39 Dose: 90 mg Documented By: MAHIN Escitalopram Oxalate (Escitalopram Oxalate 20 Mg Tablet) 20 mg PO DAILY [facility] Last Admin: 05/17/24 08:40 Dose: 20 mg Documented By: MAHIN Famotidine (Famotidine 20 Mg Tablet) 40 mg PO DAILY [facility] Last Admin: 05/17/24 08:40 Dose: 40 mg Documented By: MAHIN Furosemide (Furosemide 20 Mg Tablet) 20 mg PO DAILY [facility]; Protocol Last Admin: 05/17/24 08:40 Dose: 20 mg Documented By: MAHIN Hydromorphone HCl (Hydromorphone Hcl 1 Mg/Ml Syringe) 0.5 mg IVPUSH Q4H PRN; Protocol PRN Reason: Pain, Severe (Pain Scale 7-10) Lactated Ringer's (Lr) 1,000 mls @ 100 mls/hr IVCONT .Q10H [facility] Last Admin: 05/17/24 09:48 Dose: Not Given Documented By: MAHIN Non-Admin Reason: on hold Ketorolac Tromethamine (Ketorolac Tromethamine 0.5% Op 5 Ml Drops) 1 drop EYE-LEFT TID [facility] Last Admin: 05/17/24 08:39 Dose: 1 drop Documented By: MAHIN Lactic Acid (Ammonium Lactate 12 % Cream 140 Gm Tube) 1 appl TOPICAL BID [facility]; Protocol Last Admin: 05/17/24 08:39 Dose: 1 appl Documented By: MAHIN Magnesium Hydroxide (Milk Of Magnesia 30 Ml Oral.Susp) 30 ml PO DAILY PRN PRN Reason: Constipation Melatonin (Melatonin 3 Mg Tablet) 6 mg PO BEDTIME PRN PRN Reason: Insomnia Metoprolol Tartrate (Metoprolol Tartrate 12.5 Mg Halftab) 12.5 mg PO BID [facility]; Protocol Last Admin: 05/17/24 08:40 Dose: 12.5 mg Documented By: MAHIN Multivitamins/Vitamin C (Multivitamin Tablet) 1 tab PO DAILY [facility] Last Admin: 05/17/24 08:40 Dose: 1 tab Documented By: MAHIN Ondansetron HCl (Ondansetron Hcl 4 Mg/2 Ml Vial) 4 mg IVPUSH Q8H PRN PRN Reason: Nausea and Vomiting Prednisolone Acetate (Prednisolone Acetate 1 % Oph Susp 5 Ml Drpbtl) 1 drop EYE-LEFT TID [facility] Last Admin: 05/17/24 08:39 Dose: 1 drop Documented By: MAHIN Quetiapine Fumarate (Quetiapine Fumarate 100 Mg Tablet) 100 mg PO BID [facility] Last Admin: 05/17/24 08:41 Dose: Not Given Documented By: MAHIN Non-Admin Reason: Patient Refused Sodium Chloride (0.9 % Sodium Chloride Flush 3 Ml Syringe) 3 ml IVFLUSH QSHIFT [facility] Last Admin: 05/17/24 09:46 Dose: Not Given Documented By: MAHIN Non-Admin Reason: Previously Administered Temazepam (Temazepam 15 Mg Capsule) 15 mg PO BEDTIME [facility] Last Admin: 05/16/24 20:31 Dose: 15 mg Documented By: MO Vitamin D (Cholecalciferol (Vitamin D3) 25 Mcg Tablet) 50 mcg PO DAILY [facility] Last Admin: 05/17/24 08:39 Dose: 50 mcg Documented By: MAHIN Labs 05/15/24 18:15 05/17/24 07:34 Labs: Laboratory Results - last 24 hr 05/17/24 07:34 Anion Gap 15 Estim Creat Clear Calc 68.3 Estimated GFR > 60 Fasting Glucose 89 Calcium 8.9 Magnesium 1.7 Procedures Date of Service Date of Service: 05/17/24 Progress Note: A&P Time Spent With Patient Time: Total time managing care of this patient today ____ minutes. Quality Stroke Does the patient have a stroke diagnosis?: No VTE Prior VTE?: No VTE Risk Level:: Surgical - low VTE Device Contraindication: Treatment Not Indicated VTE Drug Contraindication: Treatment Not Indicated
--- NOTE | 2024-05-17 10:57 | HO.PM.IMPN ---
Subjective Subjective Date of Service: 05/17/24 Interval History: medical f/u for surgery patient with SBO she is reporting multiple bowel movment overnight and tolerating liquid diet Physical Exam Vital Signs: Vital Signs: Last Vital Signs Temp 97 F 05/17/24 06:51 Pulse 95 05/17/24 07:30 Resp 17 05/17/24 07:30 BP 134/66 05/17/24 06:51 Pulse Ox 95 05/17/24 06:51 O2 Del Method Room Air 05/17/24 06:51 BMI result Body Mass Index 37.3 Const: Other: General: AO X 3, no acute distress Resp: CTA bilateral CVS: S1,S2,RRR GI: +BS, NT, no distention Skin: No rash Neuro: motor grossly intact Psych: appropriate affect Objective Data Active Medications Acetaminophen (Acetaminophen 325 Mg Tablet) 650 mg PO Q6H PRN PRN Reason: Pain, Mild (Pain Scale 1-3), fever or headache Albuterol Sulfate (Albuterol Sulfate (0.083%) 2.5 Mg/3 Ml Vial.Neb) 2.5 mg INHALE BID [facility] Last Admin: 05/17/24 07:30 Dose: 2.5 mg Documented By: DEANNA Atorvastatin Calcium (Atorvastatin Calcium 80 Mg Tablet) 80 mg PO DAILY [facility] Last Admin: 05/17/24 08:41 Dose: 80 mg Documented By: MAHIN Calcium Carbonate (Calcium Carbonate 750 Mg Tab.Chew) 750 mg PO Q4H PRN PRN Reason: Heartburn Carbamazepine (Carbamazepine 200 Mg Tablet) 200 mg PO TID [facility] Last Admin: 05/17/24 08:40 Dose: 200 mg Documented By: MAHIN Cyclobenzaprine HCl (Cyclobenzaprine Hcl 10 Mg Tablet) 10 mg PO BEDTIME PRN PRN Reason: Painful muscle spasm Last Admin: 05/16/24 20:31 Dose: 10 mg Documented By: MO Enoxaparin Sodium (Enoxaparin Sodium 100 Mg/Ml Syringe) 90 mg 1 mg/kg (90 mg) SUBCUT Q12H [facility] Last Admin: 05/17/24 08:39 Dose: 90 mg Documented By: MAHIN Escitalopram Oxalate (Escitalopram Oxalate 20 Mg Tablet) 20 mg PO DAILY [facility] Last Admin: 05/17/24 08:40 Dose: 20 mg Documented By: MAHIN Famotidine (Famotidine 20 Mg Tablet) 40 mg PO DAILY [facility] Last Admin: 05/17/24 08:40 Dose: 40 mg Documented By: MAHIN Furosemide (Furosemide 20 Mg Tablet) 20 mg PO DAILY [facility]; Protocol Last Admin: 05/17/24 08:40 Dose: 20 mg Documented By: MAHIN Hydromorphone HCl (Hydromorphone Hcl 1 Mg/Ml Syringe) 0.5 mg IVPUSH Q4H PRN; Protocol PRN Reason: Pain, Severe (Pain Scale 7-10) Lactated Ringer's (Lr) 1,000 mls @ 100 mls/hr IVCONT .Q10H [facility] Last Admin: 05/17/24 09:48 Dose: Not Given Documented By: MAHIN Non-Admin Reason: on hold Ketorolac Tromethamine (Ketorolac Tromethamine 0.5% Op 5 Ml Drops) 1 drop EYE-LEFT TID [facility] Last Admin: 05/17/24 08:39 Dose: 1 drop Documented By: MAHIN Lactic Acid (Ammonium Lactate 12 % Cream 140 Gm Tube) 1 appl TOPICAL BID [facility]; Protocol Last Admin: 05/17/24 08:39 Dose: 1 appl Documented By: MAHIN Magnesium Hydroxide (Milk Of Magnesia 30 Ml Oral.Susp) 30 ml PO DAILY PRN PRN Reason: Constipation Melatonin (Melatonin 3 Mg Tablet) 6 mg PO BEDTIME PRN PRN Reason: Insomnia Metoprolol Tartrate (Metoprolol Tartrate 12.5 Mg Halftab) 12.5 mg PO BID [facility]; Protocol Last Admin: 05/17/24 08:40 Dose: 12.5 mg Documented By: MAHIN Multivitamins/Vitamin C (Multivitamin Tablet) 1 tab PO DAILY [facility] Last Admin: 05/17/24 08:40 Dose: 1 tab Documented By: MAHIN Ondansetron HCl (Ondansetron Hcl 4 Mg/2 Ml Vial) 4 mg IVPUSH Q8H PRN PRN Reason: Nausea and Vomiting Prednisolone Acetate (Prednisolone Acetate 1 % Oph Susp 5 Ml Drpbtl) 1 drop EYE-LEFT TID [facility] Last Admin: 05/17/24 08:39 Dose: 1 drop Documented By: HO.SOFFAA Quetiapine Fumarate (Quetiapine Fumarate 100 Mg Tablet) 100 mg PO BID [facility] Last Admin: 05/17/24 08:41 Dose: Not Given Documented By: MAHIN Non-Admin Reason: Patient Refused Sodium Chloride (0.9 % Sodium Chloride Flush 3 Ml Syringe) 3 ml IVFLUSH QSHIFT [facility] Last Admin: 05/17/24 09:46 Dose: Not Given Documented By: MAHIN Non-Admin Reason: Previously Administered Temazepam (Temazepam 15 Mg Capsule) 15 mg PO BEDTIME [facility] Last Admin: 05/16/24 20:31 Dose: 15 mg Documented By: MO Vitamin D (Cholecalciferol (Vitamin D3) 25 Mcg Tablet) 50 mcg PO DAILY [facility] Last Admin: 05/17/24 08:39 Dose: 50 mcg Documented By: MAHIN Labs 05/15/24 18:15 05/17/24 07:34 Labs: Laboratory Results - last 24 hr 05/17/24 07:34 Anion Gap 15 Estim Creat Clear Calc 68.3 Estimated GFR > 60 Fasting Glucose 89 Calcium 8.9 Magnesium 1.7 Assessment and Plan (1) Small bowel obstruction: Status: Acute (2) Essential hypertension: Status: Acute (3) Hyperlipidemia: Status: Acute Plan 68 year old female with extensive PMH significant for hypertension, hyperlipidemia, CAD s/p cabg x2 2019, atrial fibrillation on Xarelto, aortic stenosis, recent cataract surgery, hx colon ca s/p ileostomy w/ reversal and chemo admitted general surgery for management of SBO with consult placed hospitalist service for medical management. #SBO--seems to be resolving -plan per general surgery, conservative management at this time # persistent atrial fibrillation-rate now controlled -hold Xarelto. Lovenox, and if no surgery planned then resume Xarelto 12 hours after last lovenox dose -continue metoprolol for rate control #CAD s/p CABG x2 2019/hld -hold asa. Has thombocytopenia. Should clinical course worsen, pt should be administered platelets preoperatively if plt <50k -continue bb, statin -echo 02/2024 showed hyperdynamic LV systolic function EF >70%. mild aortic valve stenosis and mild aortic valve regurgitation, mild pulmonary htn. severely dilated left atrium #Cataract surgery -continue eye drops #HTN -continue metoprolol, lasix medically no acute issues, transition back to Xarelto if plan for DC Quality Stroke Does the patient have a stroke diagnosis?: No VTE Prior VTE?: No VTE Risk Level:: Surgical - low VTE Device Contraindication: Treatment Not Indicated VTE Drug Contraindication: Treatment Not Indicated
--- NOTE | 2024-05-17 13:02 | P.DS_ITS ---
DS: Providers Provider Date of Service: 05/17/24 Date of admission: 05/15/24 21:29 Primary care physician: Molly Mcgowan MD Attending physician on admission: Vielka Benton Consults: 05/15/24 21:28 Consult to Hospitalist Routine Comment: Consulting Provider: Hospitalist Reason For Exam: co-morbidities DS: Diagnosis Discharge Diagnosis (1) Small bowel obstruction: Start date: 05/15/24 Start time: 13:03 Status: Acute (2) Essential hypertension: Status: Acute (3) Hyperlipidemia: Status: Acute DS: Summary Hospital Course Hospital Course: Pt admitted with psbo and did well with conservtive care withinf 36 hrs - SBFT showing contrast in colon and she's feeling well and wants to go home - passing gas and stool abdo benign great bowel sonds Time Attestation Total time managing care of this patient today: 30 mintues. Discharge Coordination Time (in mins): 30 Quality: Safe Use of Opioids Does Pt have an Active Cancer Diagnosis on the Problem List?: No Quality: Stroke Does the patient have a stroke diagnosis?: No Physical Exam Vital Signs: Vital Signs: Last Vital Signs Temp 97 F 05/17/24 06:51 Pulse 95 05/17/24 07:30 Resp 17 05/17/24 07:30 BP 134/66 05/17/24 06:51 Pulse Ox 95 05/17/24 06:51 O2 Del Method Room Air 05/17/24 06:51 BMI result Body Mass Index 37.3 Const: General: cooperative, healthy appearing, comfortable and no acute distress Orientation/consciousness: patient oriented x3 GI: Inspection: Yes normal to inspection Palpation (GI): Soft to palpation and nontender Auscultation: normal bowel sounds Neuro: General: patient oriented x3 DS: Data Data Completed and Pending Completed studies during hospitalization [Text1]: Procedures Insertion of Infusion Device into Right Basilic Vein, Percutaneous Approach (02/28/24) Labs on day of discharge: Laboratory Results - last 24 hr 05/17/24 07:34 Sodium 140 Potassium 3.8 Chloride 108 Carbon Dioxide 21 L Anion Gap 15 BUN 15 Creatinine 0.77 Estim Creat Clear Calc 68.3 Estimated GFR > 60 Fasting Glucose 89 Calcium 8.9 Magnesium 1.7 Discharge Plan Discharge Anticipated Discharge Date/Time: 05/17/24 13:00 Patient Disposition: Home, Self-Care Discharge Diagnosis: sbo Referrals: Molly Mcgowan MD [Primary Care Provider] - 1 Week Discharge Medications: Continued cyclobenzaprine 10 mg tablet 10 mg PO BEDTIME PRN (Reason: Painful muscle spasm) Qty: 30 0RF famotidine 40 mg tablet 40 mg PO DAILY temazepam 15 mg capsule 15 mg PO BEDTIME Xarelto 20 mg tablet 20 mg PO DAILY@1700 Rx Instructions: must administer with evening meal carbamazepine 200 mg Tablet 200 mg PO TID quetiapine 200 mg Tablet Extended Release 24 Hr 200 mg PO BEDTIME acetaminophen 325 mg Tablet 650 mg PO Q8H PRN (Reason: ARTHRITIS PAIN) aspirin 81 mg Tablet,Delayed Release (Dr/Ec) 81 mg PO DAILY furosemide 20 mg Tablet 20 mg PO DAILY Probiotic 3 billion cell capsule 3,000 mmu cells PO DAILY@0800 Rx Instructions: administer with a meal multivitamin Tablet 1 tab PO DAILY albuterol sulfate 2.5 mg /3 mL (0.083 %) Solution For Nebulization 2.5 mg INHALATION BID cholecalciferol (vitamin D3) 50 mcg (2,000 unit) capsule 50 mcg PO DAILY Qty: 90 3RF atorvastatin 80 mg tablet 80 mg PO DAILY Qty: 90 3RF ammonium lactate 12 % cream 1 appl topical BID Rx Instructions: APPLIED TO FEET citalopram 40 mg tablet 40 mg PO DAILY ketorolac 0.5 % drops 1 drp ophthalmic-Left TID prednisolone acetate 1 % drops,suspension 1 drp ophthalmic-Left TID metoprolol tartrate 25 mg tablet 12.5 mg PO BID 90 Days Qty: 90 3RF Discharge Orders: Discharge Order (Routine); Ordered 05/17/24 Ordered By: Vielka Benton Diet: Advance to usual diet Activity on Discharge: No heavy lifting Stand Alone Forms: Patient Portal Discharge page Print Language: Citizen Of [place] Care Plan Goals: return to baseline Health Concerns: none Plan of Treatment: convalesence, slow inrease diet to regular in 48 hrs, f.u next week as outpt in surgical office Assessment: stable
--- NOTE | 2024-05-17 13:10 | MHC.CM.PN ---
Patient medically cleared for dc home self care. Son will provide transportation at 2pm. RN aware.
== END 2024-05-17 13:37 | disposition home or self-care (01) | DRG 389 ==
LOC: HO.ED 18:38 → HO.EDOVER 21:52 → HO.S3 05-16 07:46
PROVIDERS: Nurse Practitioner Family; Physician Assistant Surgical; Admitting Provider Surgery; Emergency Provider Internal Medicine; PCP Internal Medicine; Visit Provider Surgery
DX: K56.609 Unspecified intestinal obstruction, unspecified as to partial versus complete obstruction (principal); I48.19 Other persistent atrial fibrillation; I25.10 Atherosclerotic heart disease of native coronary artery without angina pectoris; K59.00 Constipation, unspecified; E78.5 Hyperlipidemia, unspecified; I10 Essential (primary) hypertension; I35.2 Nonrheumatic aortic (valve) stenosis with insufficiency; D69.6 Thrombocytopenia, unspecified; Z95.1 Presence of aortocoronary bypass graft; Z85.038 Personal history of other malignant neoplasm of large intestine; Z87.891 Personal history of nicotine dependence; Z79.01 Long term (current) use of anticoagulants; Z79.82 Long term (current) use of aspirin; Z79.899 Other long term (current) drug therapy
CPT/HCPCS: 0241U; 36415; 71045; 74177; 74250; 80048; 80053; 83605; 83690; 83735; 85025; 93005; 94640; 99285; J1650; J2270; J2405; J3475; J7120; Q9967

== ENCOUNTER → 2024-05-15 17:38 | Outpatient (BNV) | payer MEDICARE, SELFPAY | PROVIDERS: Admitting Provider Surgery; Emergency Provider Internal Medicine; PCP Internal Medicine; Visit Provider Internal Medicine | DX: I48.92 Unspecified atrial flutter (principal); I45.2 Bifascicular block; R94.31 Abnormal electrocardiogram [ECG] [EKG] | CPT/HCPCS: 93010 ==

== ENCOUNTER 2024-05-15 21:29 | Outpatient (BNV) | payer MEDICARE, SELFPAY | END 2024-05-16 12:30 | PROVIDERS: Admitting Provider Surgery; Emergency Provider Internal Medicine; PCP Internal Medicine; Visit Provider Radiology Diagnostic Radiology | DX: K56.609 Unspecified intestinal obstruction, unspecified as to partial versus complete obstruction (principal) | CPT/HCPCS: 74250 ==

== ENCOUNTER → 2024-05-15 21:29 | Outpatient (BNV) | payer MEDICARE, SELFPAY | PROVIDERS: Admitting Provider Surgery; Emergency Provider Internal Medicine; PCP Internal Medicine; Visit Provider Physician Assistant Surgical | DX: K56.609 Unspecified intestinal obstruction, unspecified as to partial versus complete obstruction (principal); I10 Essential (primary) hypertension; E78.5 Hyperlipidemia, unspecified | CPT/HCPCS: 99222; 99238 ==

== ENCOUNTER → 2024-05-15 21:29 | Outpatient (BNV) | payer MEDICARE, SELFPAY | PROVIDERS: Admitting Provider Surgery; Emergency Provider Internal Medicine; PCP Internal Medicine; Visit Provider Physician Assistant | DX: K56.609 Unspecified intestinal obstruction, unspecified as to partial versus complete obstruction (principal); I10 Essential (primary) hypertension; E78.5 Hyperlipidemia, unspecified | CPT/HCPCS: 99222; 99231 ==

== ENCOUNTER → 2024-05-18 07:47 | Outpatient (REF) | payer MEDICARE, SELFPAY ==
--- NOTE | ~2024-05-18 | NM_ITS ---
Myocardial perfusion study Indication: Precordial chest pain to evaluate for myocardial ischemia Technique: The patient was brought in for a Lexiscan perfusion study on 05/18/2024. Patient performed low-level exercise and was injected 0.4 mg of Lexiscan intravenously. Within a minute of injection, 30 mCi of sestamibi was given intravenously. Images were obtained using the SPECT gamma camera interlaced with the gating device. Images were obtained in supine position. Resting perfusion study was performed on 05/22/2024. Patient was administered 30 mCi of sestamibi intravenously at rest. Images were then obtained in supine position. Images obtained with and without CT attenuation. Total DLP 82 mGy-cm. Images were processed with the software and compared side to side in short axis, horizontal long axis and vertical long axis views. Findings: The stress perfusion study showed non attenuated images show mildly reduced uptake in the apex of the LV myocardium. Remainder of the LV myocardium is normally perfused. Attenuation corrected images show mildly reduced uptake in the anteroapical and moderately reduced uptake in the apex of the LV cardia.. The gated study shows normal LV systolic function with calculated LVEF of 54%. LV cavity is normal size. The gated study shows normal systolic wall thickening and contraction of segments. Resting study shows no change in perfusion pattern compared to stress perfusion study. Gating at rest reveals normal systolic wall motion with ejection fraction at 57%. The findings are consistent with no clear reversible defect suggestive of ischemia. Likely normal perfusion. NM/NM cardiolite stress test Impression: 1. Myocardial perfusion imaging study shows likely normal myocardial perfusion 2. Gated LVEF is 54% 3. Transient ischemic dilatation not present EKG is nondiagnostic for ischemia
--- NOTE | 2024-05-18 07:54 | CA_ITS ---
Acquisition Time: 2024-05-18 08:03:30 Total Exercise Time: 00:02:00 Test Indications: AFIB Medications: Protocol: LEXISCAN Max HR: 102 BPM 67% of Pred: 152 BPM Max BP: 098/064 mmHG Max Work Load: 1.0 METS Pharmacological stress test with lexiscan injection while sitting, without anginal symptoms, without arrhythmias, with normotensive response to injection, with nondiagnoisitic EKGs. Aminophylline 75mg IVP given to reverse Lexiscan. Nuclear images pending. Test reviewed with Dr. Han. Referred By: Vijay aHn Overread By: Concetta Arce
--- NOTE | 2024-05-18 07:54 | HM_ITS ---
* Total monitoring time 3 days. * Underlying rhythm is atrial fibrillation. Average ventricular rate 77/Min. * Rare ventricular ectopy. One 3 beat run; cannot exclude aberrant conduction. * No significant pauses or AV blocks. * Patient markers used in association with atrial fibrillation. * Chest pain and shortness of breath in diary associated with atrial fibrillation, borderline increased rate. MTDD
== END ==
LOC: HO.CARD 07:47
PROVIDERS: PCP Internal Medicine; Visit Provider Internal Medicine
DX: R07.2 Precordial pain (principal); I20.9 Angina pectoris, unspecified; I48.19 Other persistent atrial fibrillation
CPT/HCPCS: 78452; 93017; 93242; A9500; J0280; J2785

== ENCOUNTER → 2024-05-18 07:54 | Outpatient (BNV) | payer MEDICARE, SELFPAY | PROVIDERS: PCP Internal Medicine; Visit Provider Nurse Practitioner | DX: I48.91 Unspecified atrial fibrillation (principal) | CPT/HCPCS: 78452; 93016; 93018; 93244 ==

== ENCOUNTER 2024-06-04 11:00 | Outpatient (RCR) | payer MEDICARE, SELFPAY ==
[2024-05-23 11:01] VITALS: BP 98/62; O2SAT 95
--- NOTE | 2024-05-23 13:43 | MHC.PT.EP ---
[facility] [place] [facility] [place] [facility] [place] [facility] [address] Manjit Jaime [address] [phone] F: [phone] F: [phone] F: [phone] F: [phone] Physical Therapy Plan of Care Date of Evaluation: 05/23/24 Date of Surgery: Diagnosis: This is a 68 yo female presenting to skilled PT with a script for unsteady gait. Assessment: This is a 68 yo female presenting to skilled PT with a script for unsteady gait. Patient recently hospitalized on multiple occasions this year for new onset of AFIB this Spring and concerns for bowel obstruction more recently a few weeks ago. She was d/c'd home with PT services for home safety eval as well as referred to outpatient PT for cardiovascular endurance training, functional strengthening, gait and balance training on multiple different occasions. Patient reporting her ongoing balance issues now for many years. She has been walking with a rollator now for 2 years. She reports multiple falls, the most recently was 2 months ago when she was walking to her kitchen when she fell (unsure why but thinks it was from the AFIB). 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 Of note she was previously here for an initial eval last month however was experiencing lightheadedness and AFIB, she was sent next door to walk in but also rescheduled for after her cataract surgery. Assessment reveals pain that ranges from up to a 5/10 at the worst mainly in hands, feet and abdomen. Patient demos poor ROM and strength for UB and LB, impaired endurance, gait, posture and balance. Based on functional limitations, impaired QOL and pain tolerance patient is a good candidate for skilled PT 2x/wk for 5wks. Frequency and Duration: The patient will be seen 2x/wk for 5wks Short Term Goals: Pt will demonstrate improved postural awareness and understanding of core engagement with supine and standing tasks without cues throughout session to improve balance safety as well as improve strength in 2 weeks. Pt will continue to reinforce precautions, sitting, standing and ADL modifications with proper body mechanics and prevent falls in 2 wks. Pt will finish DGI for baseline in 2 weeks Half-Way Goals: Pt will demonstrate improved outcome measure by 5 points in 5 weeks for improved functional mobility Pt will improve LB MMT by at least 1 grade in 5 wks Pt will be I in HEP and compliant in 5 wks Treatment Plan: Modalities to reduce pain, spasms and effusion. Manual therapy to restore motion and function. Therapeutic exercise to improve strength and flexibility. Neuromuscular re-education for posture and balance. Therapeutic activities to return to functional activities of daily living. Electronically signed by: Renetta Ames, PT Please sign and return to therapist. Thank you for your referral.
--- NOTE | 2024-06-15 14:51 | MHC.PT.DC ---
[facility] [place] Office [place] Office [place] Office [address] Manjit Jaime [address] [phone] F: [phone] F: [phone] F: [phone] F: [phone] Physical Therapy Discharge Report Diagnosis: This is a 68 yo female presenting to skilled PT with a script for unsteady gait. Date of Surgery: Date of Evaluation: 05/23/24 Date of Discharge: 06/15/24 Treatments to Date: 4 Cancellations to Date: 0 No Shows to Date: 0 Discharge Status: Discharge Summary: Patient came to 4 visits of PT and then proceeded to no show the next 3. Due to visit non-compliance, patient was DC'd from therapy. Electronically signed by: Renetta Ames, PT Please sign and return to therapist. Thank you for your referral.
== END 2024-06-15 14:51 | disposition home or self-care (01) ==
LOC: HO.PTCHIC 11:00
PROVIDERS: PCP Internal Medicine; Visit Provider Internal Medicine
DX: R26.81 Unsteadiness on feet (principal)
CPT/HCPCS: 97110; 97162

== ENCOUNTER 2024-06-04 11:47 | Outpatient (AMB) | payer MEDICARE, SELFPAY ==
--- NOTE | 2024-06-04 13:37 | A.OFFPC_ITS ---
Vital Signs 06/04/24 13:38 Height 5 ft Weight 189 lb BMI 36.9 BP 100/62 Blood Pressure Location Rt brachial Position Sitting Pulse 72 Pulse Source Pulse Oximeter Pulse Oximetry (%) 95 Oxygen Delivery Method Room Air Intake Visit Reasons: D[place] [facility] [place] Int[place] Note: Pt is here today for her [facility] [place]N Allergies No Known Allergies Allergy (Verified 06/04/24 14:02) Medication List - Last Reconciled 06/04/24 by Molly Mcgowan MD acetaminophen 650 mg PO Q8H PRN albuterol sulfate 2.5 mg inhalation BID ammonium lactate 12% 1 appl topical BID aspirin 81 mg PO DAILY atorvastatin 80 mg PO DAILY carbamazepine 200 mg PO TID cholecalciferol (vitamin D3) 50 mcg PO DAILY citalopram 40 mg PO DAILY cyclobenzaprine 10 mg PO BEDTIME PRN famotidine 40 mg PO DAILY furosemide 20 mg PO DAILY lactobacillus combination no.4 (Probiotic) 3,000 mmu cells PO DAILY@0800 metoprolol tartrate 12.5 mg (1/2 x 25 mg) PO BID 90 days multivitamin 1 tab PO DAILY nystatin 1 appl topical DAILY PRN quetiapine ER 200 mg PO BEDTIME rivaroxaban (Xarelto) 20 mg PO DAILY@1700 temazepam 15 mg PO BEDTIME Tobacco use date assessed: 06/04/24 Dental Screening Dental Screen Date: 06/04/24 Did you have a dental visit in the last 12 months?: No Did you have a dental problem in the last 6 months where you did not have access to dental care?: No Was dental information given to patient?: Patient declined HPI D/c [place] [facility] [place] HPI Details 68-year-old lady with history of colon c ancer stage III, CAD s/p CABG, atrial fibrillation, nonrheumatic aortic valve stenosis, hyperlipidemia, hyperte nsion, GERD, thrombocytopenia, cervical Radiculopathy due to cervical degenerative disc disease, here today for hospital discharge follow-up . She was recently admitted for partial small-bowel obstruction, which was treated conservatively, and resolved within 36 hours. Small-bowel follow-through showing contrast in colon and she is feeling well and passing gas and stool. Denies any abdominal pain, nausea and vomiting has resolved.. Her diet was slowly advanced to her usual diet, denies any new symptoms at present time. [facility] Medical History (Updated 06/04/24 @ 17:13 by Molly Mcgowan MD) History of small bowel obstruction Hx of colon cancer, stage III Bipolar 1 disorder CAD (coronary artery disease) Persistent atrial fibrillation Essential hypertension Hyperlipidemia Personal history of nicotine dependence Unsteady gait Thrombocytopenia Anemia Cervical radiculopathy due to degenerative joint disease of spine History of radius fracture Degenerative disc disease, cervical Acquired deafness of left ear Surgical History History of coronary artery bypass graft x 2 (~2019) History of cardiac catheterization History of resection of small bowel (~2020) History of exploratory laparotomy History of lysis of adhesions History of laparoscopic adjustable gastric banding (~2004) History of laparoscopic cholecystectomy (~2003) History of parotidectomy (~2014) History of cervical discectomy (~2013) History of cervical corpectomy (~2013) History of fusion of cervical spine History of surgery on right wrist History of colonoscopy History of esophagogastroduodenoscopy (EGD) History of appendectomy (~2003) History of tonsillectomy History of bunionectomy Family History Sister Substance use disorder Insulin dependent type 1 diabetes mellitus Mother Colon cancer Breast cancer Coronary artery disease High cholesterol Essential hypertension Social History Household Members: None Housing: Apartment Do you presently have visiting nurse or other home services: No Alcohol intake: current Alcohol intake frequency: holidays/special occasions only Patient Tobacco Use Status: Former Tobacco user e-Cigarette/Vaping Use: Never Used Second Hand Smoke Exposure: No Advance Directives Date on File: 03/02/24 service: No Current occupational status: retired Cognitive needs: No Hearing needs: No Vision needs: Yes Questionnaire PHQ-9 Over the last 2 weeks, how often have you been bothered by any of the following problems? 1. Little interest or pleasure in doing things: not at all 2. Feeling down, depressed, or hopeless: not at all 3. Trouble falling or staying asleep, or sleeping too much: several days 4. Feeling tired or having little energy: not at all 5. Poor appetite or overeating: not at all 6. Feeling bad about yourself - or that you are a failure or have let yourself or your family down: not at all 7. Trouble concentrating on things, such as reading the newspaper or watching television: not at all 8. Moving or speaking so slowly that other people could have noticed. Or the opposite - being so fidgety or restless that you have been moving around a lot more than usual: not at all 9. Thoughts that you would be better off or of hurting yourself in some way: not at all Total score: 1 Depression Screening Interpretation: Negative Depression Screening Done: Yes 95345 - PHQ-9 Billing: Yes Source: Developed by Drs. Philipp Najera, Nga Sage, Benjamin Berman and colleagues, with an educational ashli from [employer]. Thrive Questionnaire Date Thrive assessed: 05/28/24 I am a: Patient What is your living situation today?: I have a steady place to live Within the past 12 months, did the food you bought not last and you didn't have the money to get more?: Never true Within the past 12 months, did you worry whether your food would run out before you got money to buy more?: Never true Do you have trouble paying for medicines?: No Do you have trouble getting transportation to medical appointments?: No Do you have trouble paying your heating and electricity bill?: No Do you have trouble taking care of your child, family member or friend?: No Do you have trouble with day-to-day activities such as bathing, preparing meals, shopping, managing finances, etc.?: No Are you currently unemployed and looking for a job?: No Are you interested in more education?: No Please select the resources that you would like help with: Housing/Intermediate Currently or been in a relationship where the following occur: No concerns reported THRIVE Score: 0 AUDIT C Alcohol Use Questionnaire (AUDIT-C) 1. How often do you have a drink containing alcohol?: 2-4 times a month 2. How many drinks containing alcohol do you have on a typical day when you are drinking?: 1 or 2 3. How often do you have six or more drinks on one occasion?: Never Total Score: 2 REY-7 AMB Questionnaire REY-7 Date REY - 7 assessed: 02/06/24 Feeling nervous, anxious, or on edge: 0 = Not at all Not being able to stop or control worryin = Not at all Worrying too much about different things: 0 = Not at all Trouble relaxin = Not at all Being so restless that it is hard to sit still: 0 = Not at all Becoming easily annoyed or irritable: 0 = Not at all Feeling afraid as if something awful might happen: 0 = Not at all Total REY-7 score (0-4 normal; 5-9 mild; 10-14 moderate; 15-21 severe): 0 Source: Developed by Drs. Philipp Najera, Nga Sage, Benjamin Berman and colleagues, with an educational ashli from [employer]. REY-7 Assessment Billing REY-7 Assessment Tool: REY-7 Assessment 34678 Review of Systems Const Denies fever(s), Denies headache(s) and Denies weakness Eyes Details: Had recent cataract surgery ENT Denies dizziness, Denies headache(s) and Denies nasal congestion Card Denies chest pain, Denies lightheadedness, Denies palpitations and Denies dyspnea Resp Denies chest congestion, Denies cough and Denies dyspnea GI Denies abdominal pain, Denies change in bowel habits and Denies heartburn Denies urinary frequency, Denies dysuria and Denies urinary urgency Musc Denies joint swelling and Reports stiffness Skin/Breast Denies breast pain, Denies breast mass and Denies rash Neuro Denies dizziness, Denies headache(s) and Denies weakness Psych Reports as per HPI Endo Denies polydipsia, Denies polyuria and Denies palpitations Yonas/Lymph Denies easy bleeding and Reports easy bruising Aller/Immun Denies seasonal rhinorrhea Physical exam (Primary Care) Vital Signs: Last Vital Signs Pulse 72 06/04/24 13:38 BP 100/62 06/04/24 13:38 Pulse Ox 95 06/04/24 13:38 Oxygen Delivery Method Room Air 06/04/24 13:38 BMI result Body Mass Index 36.9 Tobacco/Smoking Status: Tobacco use Status Tobacco use date assessed 06/04/24 06/04/24 13:43 Patient Tobacco Use Status Former Tobacco user 06/04/24 13:38 e-Cigarette/Vaping Use Never Used 06/04/24 13:38 PHQ-9: PHQ-9 Score PHQ-9: Total score 1 06/04/24 14:11 Depression Screening Interpretation: Negative Thrive Assessment: Date of Thrive Assessment Date Thrive assessed 05/28/24 06/04/24 13:38 Currently or been in a relationship where the following occur: No concerns reported Const General: comfortable, no acute distress and alert Orientation/consciousness: patient oriented x3 HENMT Ears: external ears normal General nose exam: Normal external nose present and No nasal discharge present Mouth: Normal oral and palatal mucosa present, oropharynx normal and moist mucous membranes Eyes General: appearance normal, both eyes and all related structures Neck Neck: Yes full ROM, Yes no lymphadenopathy and Yes supple Resp Effort & Inspection: normal respiratory effort and able to speak in complete sentences Auscultation: clear to auscultation bilaterally Cardio Rhythm: abnormal rhythm irregularly irregular GI Palpation (GI): Soft to palpation, nontender and no masses Auscultation: normal bowel sounds Back/Spine/Pelvis Back: No back tenderness Skin General skin exam: no rashes or lesions noted Neuro General: patient oriented x3, moves all extremities, Normal light touch and pain sensation and no focal motor deficits Cranial nerves: Yes CN's II-XII intact bilaterally Cognition (Neuro): normal cognition Extrem General: Yes full ROM, Yes no joint enlargement, Yes no clubbing, cyanosis or edema and Yes no calf tenderness Assessment and Plan Assessment & Plan (1) History of small bowel obstruction: Code(s): Z87.19 - Personal history of other diseases of the digestive system Plan: Patient slowly advancing her diet back to her usual diet, avoidance of eating a lot of seeds, fruits with a peel on it, corn, nuts. Advised to stay well- hydrated, and stay active (2) Essential hypertension: Code(s): I10 - Essential (primary) hypertension Plan: Blood pressure at goal of less than 130/80. Continue with current medication. Reinforced importance of following a low sodium diet, getting regular exercise, and lowering stress levels. Coding Level of Care Code Est Pt Level 4 (26868) Complex EM visit Add On G2211 Diagnoses History of small bowel obstruction Z87.19 Essential hypertension I10 Additional Codes REY-7 Assessment Billing - RYE-7 Assessment Tool: REY-7 Assessment 67344 ([id number])
[2024-06-04 13:38] VITALS: BP 100/62; PULSE 72; O2SAT 95; BMI 36.9
== END 2024-06-04 14:45 | disposition home or self-care (01) ==
PROVIDERS: PCP Internal Medicine; Visit Provider Internal Medicine
DX: I10 Essential (primary) hypertension (principal); Z87.19 Personal history of other diseases of the digestive system
CPT/HCPCS: 99214; G2211

== ENCOUNTER 2024-06-29 09:17 | Outpatient (AMB) | payer MEDICARE, SELFPAY ==
--- NOTE | 2024-06-29 07:44 | MHC.OFFVIS ---
Intake Visit Reasons: Former Smoker Allergies No Known Allergies Allergy (Verified 06/04/24 14:02) HPI HPI Former Smoker: Details: Initial visit for this 68yo smoker with a 30PYH. Patient started smoking at age 30 for 33 years at 1ppd. She quit 5 years ago - 12/02/2018 (after CABG). . Denies marijuana use. Denies second hand smoke exposure. Denies exposure to chemicals or substances like asbestos. . Denies known family history of lung cancer. Her had lung cancer at age 48. Reports personal history of Colon cancer. Had partial colectomy and ileostomy in 2016. Did Chemo and had ileostomy reversed. Denies chest CT in last year. . Denies recent travel outside the [place]. Denies recent respiratory illness or recent hospitalization for respiratory issues. Denies testing positive for COVID. Admits receiving COVID Vaccine. x 4. . Denies fever, chills, new/worsening cough, hemoptysis, hoarseness or dysphagia. Denies significant chest pain, significant dyspnea or unintentional weight loss. Patient Lung Cancer Screening Questionnaire reviewed with patient by provider. . Shared Decision Making Completed. Patient meets criteria. Discussed in detail with patient, the risk vs benefit of LDCT screening. Patient consents to proceed with scan. Discussed and encouraged continued smoking cessation. [facility] Medical History (Updated 06/29/24 @ 09:34 by Katie Ro PA-C) History of small bowel obstruction Hx of colon cancer, stage III Bipolar 1 disorder CAD (coronary artery disease) Persistent atrial fibrillation Essential hypertension Hyperlipidemia Personal history of nicotine dependence Unsteady gait Thrombocytopenia Anemia Cervical radiculopathy due to degenerative joint disease of spine History of radius fracture Degenerative disc disease, cervical Acquired deafness of left ear Surgical History (Updated 06/29/24 @ 09:32 by Katie Ro PA-C) History of coronary artery bypass graft x 2 (~2018) History of cardiac catheterization History of partial colectomy (~2015) History of reversal of ileostomy History of resection of small bowel (~2020) History of laparoscopic adjustable gastric banding (~2004) History of laparoscopic cholecystectomy (~2003) History of parotidectomy (~2014) History of cervical discectomy (~2013) History of surgery on right wrist History of colonoscopy History of esophagogastroduodenoscopy (EGD) History of appendectomy (~2003) History of tonsillectomy History of bunionectomy Family History Sister Substance use disorder Insulin dependent type 1 diabetes mellitus Mother Colon cancer Breast cancer Coronary artery disease High cholesterol Essential hypertension Social History (Updated 06/29/24 @ 09:21 by Katie Ro PA-C) Household Members: None Housing: Apartment Do you presently have visiting nurse or other home services: No Alcohol intake: current Alcohol intake frequency: holidays/special occasions only Patient Tobacco Use Status: Former Tobacco user Years Smoked: (former smoker - onset 30yo, 1ppd x 33yrs, 30pyh, quit 11/2018) e-Cigarette/Vaping Use: Never Used Second Hand Smoke Exposure: No Advance Directives Date on File: 03/02/24 service: No Current occupational status: retired Cognitive needs: No Hearing needs: No Vision needs: Yes Assessment & Plan Assessment & Plan (1) Personal history of nicotine dependence: Comment: (former smoker - onset 30yo, 1ppd x 33yrs, 30pyh, quit 11/2018) Code(s): Z87.891 - Personal history of nicotine dependence Category: Medical Plan: - SDM visit completed today in office. - Patient meets criteria for LDCT for lung cancer screening purposes and is asymptomatic. - Smoking cessation counseling offered. Patients can always call [phone]. - Will arrange for a LDCT scan of the chest for screening purposes at [facility]. - Risks, benefits, and alternatives were discussed in detail and the patient agrees to proceed. - Risks discussed include but are not limited to: radiation exposure, anxiety during testing and while awaiting results, false negatives, false positives and possibility of additional intervention such as further imaging or surgical procedures for benign disease. - Benefits are obviously detection of lung cancer at an early stage which can lead to improved outcomes. - Discussed the importance of screening program compliance with adherence to yearly LDCT scan as scheduled - or sooner interval scans for personalized screening regimen. - Discussed follow up plan. Our office will send a letter discussing results and if needed set up phone call and office visit based on CT findings. - Patient educated on results categorization and the management decisions for suspicious findings potentially found on the screening LDCT scan. Any patient with a Lung RADS score of 3 or 4 will be reviewed by a multidisciplinary team at [facility] to form a plan of action in regards to scan findings. - If further work up is warranted for a suspicious lung finding this will be followed by the Lung Cancer Screening program in conjunction with the Thoracic Surgery Department at [facility]. - A copy of the office note and LDCT will be sent to the patient's PCP - as well as documentation on any associated further plans of care. - Incidental findings on LDCT are the PCP's responsibility. These findings are indicated with an S finding on the LDCT Assessment. A note discussing the findings will be sent to the PCP who is then responsible for further management. - All questions answered.? Coding Level of Care Code Lung Cancer Screening G0296 Diagnoses Personal history of nicotine dependence Z87.891
== END 2024-06-29 10:10 | disposition home or self-care (01) ==
PROVIDERS: PCP Internal Medicine; Referring Provider Internal Medicine; Visit Provider Physician Assistant Medical
DX: Z87.891 Personal history of nicotine dependence (principal)
CPT/HCPCS: G0296

== ENCOUNTER 2024-06-29 09:35 | Outpatient (REF) | payer MEDICARE, SELFPAY ==
--- NOTE | ~2024-06-29 | CT_ITS ---
EXAMINATION: CT LOW-DOSE SCREENING CHEST WITHOUT CONTRAST CLINICAL INFORMATION: Personal history of nicotine dependence. Former smoker. The patient has a 28 pack-year history of smoking, having quit for years ago. COMPARISON: X-ray chest May 15, 2024. TECHNIQUE: Multidetector volumetric CT imaging of the chest is performed on a Siemens SOMATOM Definition scanner without contrast using low dose technique. Additional 2D coronal and sagittal reformatted images and axial 3D maximum intensity projection (MIP) images are generated on the CT workstation. This CT examination was performed using dose optimization techniques as appropriate, variously including the following: *Automated exposure control. *Adjustment of mA and/or kV according to patient size (this includes techniques or standardized protocols for targeted exams where dose is matched to indication/reason for exam; i.e. extremities or head). *Use of iterative reconstruction technique. TOTAL EXAM DLP: 49 mGy-cm. CTDIvol: 1.62 mGy. FINDINGS: PULMONARY NODULES: No suspicious pulmonary nodules. LUNGS: Lungs bilaterally symmetrically expanded. There is moderate emphysema and bronchial thickening. No effusion or pneumothorax. There are prominent reticular branching densities most marked in the upper lobes with some mild ground-glass change. No evidence of honeycombing. Central airways patent. MEDIASTINUM: No mediastinal, hilar or axillary adenopathy or free fluid collection. CORONARY ARTERY CALCIFICATION: Severe. THYROID GLAND: Unremarkable to the extent seen. CARDIOVASCULAR STRUCTURES: Heart size upper limits of normal. No aortic aneurysm. No pericardial effusion. CHEST WALL/AXILLA: Unremarkable. UPPER ABDOMEN: A lap-band is present. Included portions of the solid organs in the upper abdomen unremarkable on noncontrast imaging. OSSEOUS STRUCTURES: Status post median sternotomy. ACDF hardware is noted. CT/CT lung screening IMPRESSION: No findings seen suspicious for malignancy. ASSESSMENT: 1. Lung-RADS Category 1: Negative. There are no nodules or there are definitely benign nodules. N/A. 2. Lung-RADS Category S: Negative. There are no clinically significant or potentially clinically significant findings not related to the lungs requiring urgent additional evaluation. RECOMMENDATION: Continued routine annual low-dose CT lung screening in 1 year is recommended. An order for CT CHEST LOW DOSE CANCER SCREENING ([id number]) can be placed. Electronically signed by: Derik Cancino MD 07/31/2024 11:09 PM EDT RP
== END 2024-06-29 09:36 | disposition home or self-care (01) ==
LOC: HO.CT 09:35
PROVIDERS: PCP Internal Medicine; Visit Provider Physician Assistant Medical
DX: Z12.2 Encounter for screening for malignant neoplasm of respiratory organs (principal); Z87.891 Personal history of nicotine dependence
CPT/HCPCS: 71271; G0296

== ENCOUNTER 2024-07-24 10:53 | Outpatient (AMB) | payer MEDICARE, SELFPAY ==
[2024-07-24 11:09] VITALS: BP 100/62; PULSE 66; BMI 36.8
--- NOTE | 2024-07-24 11:09 | MHC.OFFVIS ---
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 Cutter Required: No Accompanied by: Self / Same As Patient Allergies No Known Allergies Allergy (Verified 06/04/24 14:02) Medication List - Last Reconciled 07/24/24 by Vijay Han MD acetaminophen 650 mg PO Q8H PRN albuterol sulfate 2.5 mg inhalation BID ammonium lactate 12% 1 appl topical BID aspirin 81 mg PO DAILY atorvastatin 80 mg PO DAILY carbamazepine 200 mg PO TID cholecalciferol (vitamin D3) 50 mcg PO DAILY citalopram 40 mg PO DAILY cyclobenzaprine 10 mg PO BEDTIME PRN famotidine 40 mg PO DAILY furosemide 20 mg PO DAILY lactobacillus combination no.4 (Probiotic) 3,000 mmu cells PO DAILY@0800 metoprolol tartrate 12.5 mg (1/2 x 25 mg) PO BID 90 days multivitamin 1 tab PO DAILY nystatin 1 appl topical DAILY PRN quetiapine ER 200 mg PO BEDTIME rivaroxaban (Xarelto) 20 mg PO DAILY@1700 temazepam 15 mg PO BEDTIME HPI Comments Details: Deidre returns for follow-up. In february 2024, she was admitted for small-bowel obstruction. In that setting, diagnosed atrial fibrillation. Per patient, not previously known. Otherwise, [place] [facility] [place] Last few years, she has been in [place]. Now moved locally. Otherwise, she states she feels fine. No new cardiac complaints. [facility] Medical History (Updated 07/24/24 @ 11:54 by Vijay Han MD) History of small bowel obstruction Hx of colon cancer, stage III Bipolar 1 disorder CAD (coronary artery disease) Persistent atrial fibrillation Essential hypertension Hyperlipidemia Personal history of nicotine dependence Unsteady gait Thrombocytopenia Anemia Cervical radiculopathy due to degenerative joint disease of spine History of radius fracture Degenerative disc disease, cervical Acquired deafness of left ear Surgical History History of coronary artery bypass graft x 2 (~2018) History of cardiac catheterization History of partial colectomy (~2015) History of reversal of ileostomy History of resection of small bowel (~2020) History of laparoscopic adjustable gastric banding (~2004) History of laparoscopic cholecystectomy (~2003) History of parotidectomy (~2014) History of cervical discectomy (~2013) History of surgery on right wrist History of colonoscopy History of esophagogastroduodenoscopy (EGD) History of appendectomy (~2003) History of tonsillectomy History of bunionectomy Family History Sister Substance use disorder Insulin dependent type 1 diabetes mellitus Mother Colon cancer Breast cancer Coronary artery disease High cholesterol Essential hypertension Social History Household Members: None Housing: Apartment Do you presently have visiting nurse or other home services: No Alcohol intake: current Alcohol intake frequency: holidays/special occasions only Patient Tobacco Use Status: Former Tobacco user Years Smoked: (former smoker - onset 30yo, 1ppd x 33yrs, 30pyh, quit 11/2018) e-Cigarette/Vaping Use: Never Used Second Hand Smoke Exposure: No Advance Directives Date on File: 03/02/24 service: No Current occupational status: retired Cognitive needs: No Hearing needs: No Vision needs: Yes Review of Systems Const Denies chills, Denies fatigue, Denies fever(s), Denies frequent falls, Denies weakness, Denies weight gain and Denies weight loss ENT Denies dizziness Card Denies chest pain, Denies leg edema, Denies lightheadedness, Denies palpitations, Denies dyspnea and Denies dyspnea on exertion Resp Denies cough, Denies dyspnea and Denies dyspnea on exertion GI Denies hematochezia Musc Denies abnormal gait, Denies muscle weakness, Denies numbness, Denies radiating pain into limb and Denies tingling Neuro Denies abnormal gait, Denies dizziness, Denies frequent falls, Denies numbness, Denies tingling and Denies weakness Endo Denies fatigue and Denies palpitations Physical Exam Vital Signs: Last Vital Signs Pulse 66 07/24/24 11:09 BP 100/62 07/24/24 11:09 BMI result Body Mass Index 36.8 Const General: comfortable and no acute distress Orientation/consciousness: patient oriented x3 HEENT Other: Unremarkable Head: Yes normal to inspection Neck Neck: Yes normal visual inspection Chest Chest palpation & inspection: normal inspection of the chest Resp Auscultation: clear to auscultation bilaterally Cardio Palpation: normal PMI Heart sounds: S1 normal heart sound present, S2 normal heart sound present, no gallops, no murmurs and no rubs GI Palpation (GI): Soft to palpation Back/Spine/Pelvis Other: unremarkable Skin General skin exam: no rashes or lesions noted Neuro General: patient oriented x3 Extrem General: Yes normal to inspection Psych Mental Status: mental status grossly normal Assessment & Plan Assessment & Plan (1) Persistent atrial fibrillation: Code(s): I48.19 - Other persistent atrial fibrillation Category: Medical Plan: In the Holter, underlying atrial fibrillation with an average rate of 77/Min. On the echocardiogram, left atrium described to be severely dilated. May indicate chronicity. Continue beta-blockers and Xarelto. (2) Status post coronary artery bypass graft: Code(s): Z95.1 - Presence of aortocoronary bypass graft Category: Surgical Plan: History of CABG in 2019. Myocardial perfusion imaging study from 05/2024 shows likely normal perfusion. LDL is well controlled at 61 mg/dL. (3) Nonrheumatic aortic (valve) stenosis: Code(s): I35.0 - Nonrheumatic aortic (valve) stenosis Category: Medical Plan: Echocardiogram with moderate aortic valve calcification with mild stenosis/regurgitation. Will continue to monitor. (4) Mitral annular calcification: Code(s): I34.81 - Nonrheumatic mitral (valve) annulus calcification Category: Medical Plan: Severe mitral annular calcification but no significant valvular dysfunction. Increased risk of developing calcific mitral stenosis in the future. (5) Bilateral carotid artery stenosis: Code(s): I65.23 - Occlusion and stenosis of bilateral carotid arteries Category: Medical Plan: Ultrasound [place]-right buzdxuf-63-88% plaque in the bulb/bifurcation area extending into internal carotid artery; 30% right common carotid artery; left carotid 50% in the common carotid artery and 40-50% in the bulb/bifurcation. May recheck. Orders: Orders US carotid duplex BI Today I65.23 - Occlusion and stenosis of bilateral carotid arteries Coding Level of Care Code Est Pt Level 4 (73099) Diagnoses Persistent atrial fibrillation I48.19 Status post coronary artery bypass graft Z95.1 Nonrheumatic aortic (valve) stenosis I35.0 Mitral annular calcification I34.81 Bilateral carotid artery stenosis I65.23
== END 2024-07-24 11:38 | disposition home or self-care (01) ==
PROVIDERS: PCP Internal Medicine; Visit Provider Internal Medicine
DX: I48.19 Other persistent atrial fibrillation (principal); Z95.1 Presence of aortocoronary bypass graft; I35.0 Nonrheumatic aortic (valve) stenosis; I34.81 Nonrheumatic mitral (valve) annulus calcification; I65.23 Occlusion and stenosis of bilateral carotid arteries
CPT/HCPCS: 99214

== ENCOUNTER → 2024-07-24 10:53 | Outpatient (BNVA) | payer MEDICARE, SELFPAY | PROVIDERS: PCP Internal Medicine; Visit Provider Internal Medicine | DX: I48.19 Other persistent atrial fibrillation (principal); I35.0 Nonrheumatic aortic (valve) stenosis; I34.81 Nonrheumatic mitral (valve) annulus calcification; I65.23 Occlusion and stenosis of bilateral carotid arteries; Z95.1 Presence of aortocoronary bypass graft | CPT/HCPCS: 99212 ==

== ENCOUNTER 2024-07-30 09:56 | Outpatient (REF) | payer MEDICARE, SELFPAY ==
--- NOTE | ~2024-07-30 | US_ITS ---
EXAMINATION: US EXTRACRANIAL CAROTID DUPLEX, BILATERAL CLINICAL INFORMATION: Occlusion and stenosis of bilateral carotid arteries COMPARISON: None available. TECHNIQUE: Real-time ultrasound and Doppler techniques (integrating B-mode 2-D vascular images, Doppler spectral analysis and color-flow Doppler imaging) were utilized to interrogate the extracranial carotid arteries, the vertebral arteries and proximal subclavian arteries bilaterally. The degree of stenosis is determined by criteria similar to NASCET. FINDINGS: Right Side: 1. There is severe atherosclerotic plaque seen in the bifurcation/proximal ICA region. 2. The common carotid artery PSV proximally is 79 cm/s and distally 72 cm/s. 3. The proximal internal carotid artery velocities are 69 cm/s systolic and 23 cm/s diastolic. 4. The proximal external carotid artery PSV is 65 cm/s. 5. The vertebral artery shows antegrade flow. 6. The subclavian artery waveforms are normal. Left Side: 1. There is severe atherosclerotic plaque seen in the bifurcation/proximal ICA region. 2. The common carotid artery PSV proximally is 80 cm/s and distally 80 cm/s. 3. The proximal internal carotid artery velocities are 64 cm/s systolic and 28 cm/s diastolic. 4. The proximal external carotid artery PSV is 68 cm/s. 5. The vertebral artery shows antegrade flow. 6. The subclavian artery waveforms are normal. US/US carotid duplex BI IMPRESSION: 1. RIGHT: Minimal, non-hemodynamically significant stenosis of the proximal right internal carotid artery corresponding to a 0-49% stenosis by velocity criteria. 2. LEFT: Minimal, non-hemodynamically significant stenosis of the proximal left internal carotid artery corresponding to a 0-49% stenosis by velocity criteria. Electronically signed by: Sharri Fernandez MD 07/31/2024 04:15 PM EDT
== END 2024-07-30 09:57 | disposition home or self-care (01) ==
LOC: HO.HMGCX 09:56
PROVIDERS: PCP Internal Medicine; Visit Provider Internal Medicine
DX: I65.23 Occlusion and stenosis of bilateral carotid arteries (principal)
CPT/HCPCS: 93880

== ENCOUNTER 2024-08-28 11:53 | Outpatient (AMB) | payer MEDICARE, SELFPAY ==
[2024-08-28 12:18] VITALS: BP 120/80; PULSE 97; BMI 36.1
--- NOTE | 2024-08-28 12:18 | A.OFFVIS_ITS ---
Vital Signs 3 08/28/24 12:18 Height 5 ft Weight 185 lb BMI 36.1 BP 120/80 Blood Pressure Location Lt brachial Position Sitting Pulse 97 Intake Visit Reasons: Colonoscopy Screening Intake Note: Deidre presents as a new patient for colonoscopy screening. CC: Last colonoscopy done in [place] 3 years ago and before that in 2016 where a cancerous mass was found. She had the mass removed and underwent chemotherapy, ileostomy, and ileostomy reversal. She c/o diarrhea and a lot of gas. Patient reports frequent bowel obstructions after ileostomy reversal. 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 He is referred by Molly Mcgowan of [facility] [place]. PMX AFib Coronary artery disease Smoker Coronary artery disease Aortic valve stenosis Hypertension High cholesterol History of small-bowel obstruction/history of colorectal cancer stage III Bipolar 1 disorder Thrombocytopenia History of radius fracture Cervical degenerative disc disease Deaf in the left ear * SURGICAL HISTORY CABG Partial colectomy Ileostomy reversal Small-bowel resection Gastric banding surgery Cholecystectomy Parotidectomy Cervical diskectomy Fracture repair right wrist Colonoscopy- - [facility] Esophagogastroduodenoscopy -2021 Appendectomy Bunionectomy Tonsillectomy Cataract surgery * ALLERGIES NKDA * [employer] [facility] LABS: Laboratory Tests 05/15/24 05/17/24 18:15 07:34 WBC 6.0 Hgb 12.9 Hct 38.3 Plt Count 117 L Creatinine 0.77 Estimated GFR > 60 Total Bilirubin 1.1 H AST 50 H ALT 24 Alkaline Phosphatase 224 H TODAY'S VISIT She is suffering SBO's. Takes imodium 4 a day but then will have cic for a day and takes metamucil.......other samuel severe diarrhea since partial colectomy. She was seen in our ER Dr. Christy. She has GERD well controlled on famotidine. I think will give her a trial of cholestyramine and Creon as Imodium likely is partially contributing to the likelihood of small-bowel obstructions. She was dx'ed with afib and is new on xarelto - Dr. De Paz. I think we need to check with his office to determine whether Xarelto can be held colonoscopy. ROV 2 weeks to al [facility] Medical History C. difficile colitis Tremor Diplopia History of small bowel obstruction Hx of colon cancer, stage III Bipolar 1 disorder CAD (coronary artery disease) Persistent atrial fibrillation Essential hypertension Hyperlipidemia Personal history of nicotine dependence Unsteady gait Thrombocytopenia Anemia Cervical radiculopathy due to degenerative joint disease of spine History of radius fracture Degenerative disc disease, cervical Acquired deafness of left ear Surgical History Status post coronary artery bypass graft History of coronary artery bypass graft x 2 (~2018) History of cardiac catheterization History of partial colectomy (~2015) History of reversal of ileostomy History of resection of small bowel (~2020) History of laparoscopic adjustable gastric banding (~2004) History of laparoscopic cholecystectomy (~2003) History of parotidectomy (~2014) History of cervical discectomy (~2013) History of surgery on right wrist History of colonoscopy History of esophagogastroduodenoscopy (EGD) History of appendectomy (~2003) History of tonsillectomy History of bunionectomy Family History Sister Substance use disorder Insulin dependent type 1 diabetes mellitus Mother Colon cancer Breast cancer Coronary artery disease High cholesterol Essential hypertension Father Heart disease Brother Heart disease Social History Household Members: None Housing: Apartment Do you presently have visiting nurse or other home services: No Unable to assess alcohol history related to: Unable to respond Alcohol intake: never Patient Tobacco Use Status: Former Tobacco user Tobacco use type: Cigarette Years Smoked: (former smoker - onset 30yo, 1ppd x 33yrs, 30pyh, quit 11/2018) e-Cigarette/Vaping Use: Never Used Second Hand Smoke Exposure: No Advance Directives Date on File: 03/02/24 service: No Current occupational status: retired Cognitive needs: No Hearing needs: No Vision needs: Yes Review of Systems Const Denies fatigue, Denies fever(s), Denies night sweats, Denies poor appetite and Denies weight loss ENT Reports Normal hearing present, Denies dysphagia, Denies odynophagia, Denies throat swelling and Denies tongue swelling Card Reports irregular heart rhythm Resp Reports no additional complaints GI Details: Denies abdominal pain, Denies melena, Denies bloating, Denies hematochezia, Denies constipation, Denies GI cramping, Denies dysphagia, Denies excessive flatus, Denies early satiety, Reports heartburn, Denies diarrhea, Reports loose stools, Denies nausea, Denies odynophagia, Denies vomiting and Denies hematemesis Skin/Breast Denies pruritus, Denies lesions, Denies rash and Denies jaundice Neuro Reports Normal hearing present and Denies Abnormal speech present Endo Denies fatigue Aller/Immun Denies throat swelling and Denies tongue swelling Physical Exam Vital Signs: Last Vital Signs Pulse 97 08/28/24 12:18 BP 120/80 08/28/24 12:18 BMI result Body Mass Index 36.1 Const General: cooperative, no acute distress, well developed and well groomed Nutritional Appearance: well nourished and obese Orientation/consciousness: oriented to person, oriented to place and oriented to time Limitations: No language barrier HEENT Head: Yes normocephalic and Yes atraumatic Eyes General: appearance normal, both eyes and all related structures Pupils: Equal, round and reactive pupils present Neck Neck: Yes normal visual inspection and Yes no lymphadenopathy Thyroid: Thyroid normal Resp Effort & Inspection: normal respiratory effort and able to speak in complete sentences Auscultation: clear to auscultation bilaterally Cardio Rate: regular rate Rhythm: regular rhythm Heart sounds: Normal, physiologic split S2 sound present Peripheral pulses: radial pulses present and posterior tibial pulses present GI Inspection: No distended, Yes Abdominal panniculus present and Yes obesity Palpation (GI): Soft to palpation, nontender, no guarding, not rigid and No hepatosplenomegaly present Percussion: Yes normal to percussion Auscultation: normal bowel sounds Rectal Exam - Female: deferred Abdomen image: 2 1. surgical scars 2. Skin General skin exam: no rashes or lesions noted, turgor normal, skin not dry, no jaundice, No spider nevi and no striae Rashes: no rashes Nails: normal Neuro General: oriented to person, oriented to place and oriented to time Cranial nerves: Yes Equal, round and reactive pupils present and Yes Normal hearing present Speech: No Abnormal speech present Extrem General: Yes normal to inspection, No clubbing, No cyanosis and Yes edema Psych Appearance: grossly normal and well kempt Mental Status: mental status grossly normal Speech and movement: Normal speech and movement present Affect: normal affect Attitude: cooperative Thought process: Normal thought process present and not confabulating Thought content: Normal thought content present Insight: Limited insight present (Psych) Judgement: Limited judgement present (Psych) Results Reviewed Results Reviewed: Laboratory Tests 05/15/24 05/17/24 18:15 07:34 WBC 6.0 Hgb 12.9 Hct 38.3 Plt Count 117 L Creatinine 0.77 Estimated GFR > 60 Total Bilirubin 1.1 H AST 50 H ALT 24 Alkaline Phosphatase 224 H Assessment & Plan Assessment & Plan (1) Short bowel syndrome: Code(s): K90.829 - Short bowel syndrome, unspecified Category: Medical (2) Pre-op examination: Code(s): Z01.818 - Encounter for other preprocedural examination Category: Medical Plan She is suffering SBO's. Takes imodium 4 a day but then will have cic for a day and takes metamucil.......other samuel severe diarrhea since partial colectomy. She was seen in our ER Dr. Christy. She has GERD well controlled on famotidine. I think will give her a trial of cholestyramine and Creon as Imodium likely is partially contributing to the likelihood of small-bowel obstructions. She was dx'ed with afib and is new on xarelto - Dr. De Paz. I think we need to check with his office to determine whether Xarelto can be held colonoscopy. ROV 2 weeks to eval Orders: Orders 2 Colonoscopy - GI Use Only 08/28/24 Z01.818 - Encounter for other preprocedural examination Medications: New 2 doxycycline hyclate 100 mg PO BID 28 tabs 0RF 14 days peg 3350-electrolytes 236-22.74-6.74 -5.86 gram (Golytely) until fecal effluent is clear; do not exceed a total volume of 2,000 mL 240 mL PO Q10M 4,000 mL 0RF 1 day Z12.11 - Encounter for screening for malignant neoplasm of colon [id number] 36,000-114,000- 180,000 unit (Creon) administer with meals and/or snacks 2 caps PO BID 120 caps 6RF K90.829 - Short bowel syndrome, unspecified cholestyramine (with sugar) 4 gram administer w/meal; avoid other meds within 1hr before or 4-6hr after dose 4 grams PO DAILY 60 ea 3RF Coding Level of Care Code New Pt Level 3 (06086) Diagnoses Short bowel syndrome K90.829 Pre-op examination Z01.818
== END 2024-08-28 15:14 | disposition home or self-care (01) ==
PROVIDERS: PCP Internal Medicine; Visit Provider Nurse Practitioner
DX: K90.829 Short bowel syndrome, unspecified (principal); Z01.818 Encounter for other preprocedural examination; Z12.11 Encounter for screening for malignant neoplasm of colon; Z90.49 Acquired absence of other specified parts of digestive tract
CPT/HCPCS: 99203

== ENCOUNTER → 2024-08-28 11:53 | Outpatient (BNVA) | payer MEDICARE, SELFPAY | PROVIDERS: PCP Internal Medicine; Visit Provider Nurse Practitioner | DX: Z01.818 Encounter for other preprocedural examination (principal); K90.829 Short bowel syndrome, unspecified | CPT/HCPCS: 99202 ==

== ENCOUNTER 2024-09-03 08:10 | Outpatient (AMB) | payer MEDICARE, SELFPAY ==
[2024-09-03 08:19] VITALS: BP 100/70; PULSE 78; O2SAT 98; BMI 37.1
--- NOTE | 2024-09-03 08:19 | A.OFFVIS_ITS ---
Intake Vital Signs 09/03/24 08:19 Height 5 ft Weight 190 lb BMI 37.1 BP 100/70 Blood Pressure Location Lt brachial Position Sitting Pulse 78 Pulse Source Pulse Oximeter Pulse Oximetry (%) 98 Oxygen Delivery Method Room Air Intake Visit Reasons: SWV G0439 Intake Note: Pt is here today for her SWV: Last mammogram 03/22/24, bone density scan 03/22/24, colonoscopy 08/30/22 Allergies No Known Allergies Allergy (Verified 09/03/24 09:16) Medication List - Last Reconciled 09/03/24 by Molly Mcgowan MD acetaminophen 650 mg PO Q8H PRN albuterol sulfate 2.5 mg inhalation BID ammonium lactate 12% 1 appl topical BID aspirin 81 mg PO DAILY atorvastatin 80 mg PO DAILY carbamazepine 200 mg PO TID cholecalciferol (vitamin D3) 50 mcg PO DAILY cholestyramine (with sugar) 4 gram 4 grams PO DAILY citalopram 40 mg PO DAILY cyclobenzaprine 10 mg PO BEDTIME PRN doxycycline hyclate 100 mg PO BID 14 days famotidine 40 mg PO DAILY furosemide 20 mg PO DAILY lactobacillus combination no.4 (Probiotic) 3,000 mmu cells PO DAILY@0800 [id number] 36,000-114,000- 180,000 unit (Creon) 2 caps PO BID metoprolol tartrate 12.5 mg (1/2 x 25 mg) PO BID 90 days multivitamin 1 tab PO DAILY nystatin 1 appl topical DAILY PRN peg 3350-electrolytes 236-22.74-6.74 -5.86 gram (Golytely) 240 mL PO Q10M 1 day quetiapine ER 200 mg PO BEDTIME rivaroxaban (Xarelto) 20 mg PO DAILY@1700 temazepam 15 mg PO BEDTIME HPI SWV G0439 HPI Details AWV ? 68 year old lady with past medical history significant for hyperlipidemia hypertension, coronary artery disease s/p CABG persistent atrial fibrillation on anticoagulation with Xarelto, essential hypertension, chronic GERD, cervical degenerative disc disease, bilateral carotid artery stenosis and short bowel syndrome, presents for her ? Annual Wellness Visit, initial visit .? She is up-to-date with her screening mammogram and bone density scan done earlier this year showing normal results. She is up-to-date with her screening colonoscopy done 08/30/2020. Her fasting lipid panel and fasting blood sugar was checked earlier this year which came back with normal results. She is up-to-date with her flu vaccine, Tdap, pneumococcal vaccine Shingrix vaccine and COVID booster ? Medical / Social History Reviewed? Past Medical History ?Yes . ? [place] of Care / Care Team list updated ?Yes . ? Surgical/Hospitalization History ?Yes . ? Current Medications (including OTC and supplements) ?Yes . ? Family History ?Yes . ? Tobacco Control form ?Yes . ? AUDIT-C (Alcohol use) form ?Yes . ? Illicit drug use in Social History ?Yes . ? Current diagnosis of depression? ?No ? Appropriate PHQ2/PHQ9 completed ?Yes . ? Data entered by ?Welding Machine Operator Thermit and reviewed by provider ? Fall Risk ? Fall History? Have you had any falls with injury in the past year? ?No . ? Have you had two or more falls in the past year? ?No . ? Fall Risk Assessment: ?No falls in the past year . ? HRA filled out by the patient, reviewed by Provider and scanned. ?AWV ? Balance? Romberg ?positive ? Tandem walk ?unable. ? Walk and Turn ? with difficulty , uses a walker. ? Rise from sit to stand ?Yes . ?Vision? Corrective lens none ? Vision screen ? Up-to-date, has an appointment [place] clinical support specialist due to double vision ?Hearing? Whisper test ?fail, decreased hearing in left ear due to ruptured tympanic membrane ?Written Plan?Completed. See Patient Documents.? [facility] Medical History History of small bowel obstruction Hx of colon cancer, stage III Bipolar 1 disorder CAD (coronary artery disease) Persistent atrial fibrillation Essential hypertension Hyperlipidemia Personal history of nicotine dependence Unsteady gait Thrombocytopenia Anemia Cervical radiculopathy due to degenerative joint disease of spine History of radius fracture Degenerative disc disease, cervical Acquired deafness of left ear Surgical History History of coronary artery bypass graft x 2 (~2018) History of cardiac catheterization History of partial colectomy (~2015) History of reversal of ileostomy History of resection of small bowel (~2020) History of laparoscopic adjustable gastric banding (~2004) History of laparoscopic cholecystectomy (~2003) History of parotidectomy (~2014) History of cervical discectomy (~2013) History of surgery on right wrist History of colonoscopy History of esophagogastroduodenoscopy (EGD) History of appendectomy (~2003) History of tonsillectomy History of bunionectomy Family History Sister Substance use disorder Insulin dependent type 1 diabetes mellitus Mother Colon cancer Breast cancer Coronary artery disease High cholesterol Essential hypertension Father Heart disease Brother Heart disease Social History Household Members: None Housing: Apartment Do you presently have visiting nurse or other home services: No Alcohol intake: current Alcohol intake frequency: holidays/special occasions only Patient Tobacco Use Status: Former Tobacco user Years Smoked: (former smoker - onset 30yo, 1ppd x 33yrs, 30pyh, quit 11/2018) e-Cigarette/Vaping Use: Never Used Second Hand Smoke Exposure: No Advance Directives Date on File: 03/02/24 service: No Current occupational status: retired Cognitive needs: No Hearing needs: No Vision needs: Yes Questionnaire Medicare Wellness Checkup What [age] 65-69 What gender do you identify with?: female During the past 4 weeks, how much have you been bothered by emotional problems such as feeling anxious, depressed, irritable, sad or downhearted, and blue?: moderately During the past 4 weeks, has your physical & emotional health limited your social activities with family, friends, neighbors, or groups?: not at all During the past 4 weeks, how much bodily pain have you generally had?: severe pain During the past 4 weeks, was someone available to help you if you needed & wanted help?: yes, as much as I wanted During the past 4 weeks, what was the hardest physical activity you could do for at least 2 minutes?: light Can you get to places out of walking distance without help? (For eg., can you travel alone on buses, taxis or drive your car?): Yes Can you go shopping for groceries or clothes without someone's help?: Yes Can you prepare your own meals?: Yes Can you do your housework without help?: Yes Because of any health problems, do you need the help of another person with your personal care needs such as eating, bathing, dressing or getting around the house?: No Can you handle your own money without help?: Yes During the past 4 weeks, how would you rate your health in general?: good During the past 4 weeks how have things been going for you?: good & bad parts about equal Are you having difficulties driving your car?: no Do you always fasten your seat belt when you are in a car?: yes, usually During past 4 weeks, have you been bothered by the following: never: Falling or dizzy when standing up, Sexual problems?, Trouble eating well? and Problems using the telephone? and sometimes: Teeth or denture problems? and Tiredness or fatigue? Have you fallen 2 or more times in the past year?: Yes Are you afraid of falling?: No Are you a smoker?: no During the past 4 weeks, how many drinks of wine, beer, or other alcoholic beverages did you have?: no alcohol at all Do you exercise for about 20 minutes 3 or more times a week?: no, I usually do not exercise this much Have you been given information to help with the following?: no: Hazards in your house that might hurt you? and no: Keeping track of your medications? How often do you have trouble taking medicines the way you have been told to take them?: I always take medicine as prescribed How confident are you that you can control & manage most of your health problems?: very confident What is your race?: White Mini Mental State Exam (MMSE) Orientation What is the (year) (season) (date) (day) (month)?: year (2023), season (fall), date (09/03/24), day (tuesday) and month (august) Where are we (state) (county) (town or city) (hospital) (floor)?: state ([place]), county ([place]), town or city ([place]) and hospital/clinic ([facility]) Score Score: 9 Activity of Daily Living Bathing - sponge bath, tub bath or shower: receives no assistance (gets in/out by self, if usual bathing means Dressing - getting clothes from closets & drawers, including inner/outer garments & fasteners.: gets clothes & gets completely dressed without help Toileting - going to the 'toilet room' for urine/bowel elimination & cleaning self/arranging clothes: goes to toilet room, cleans self, arranges clothes with out help Transfer: moves in & out of bed and chair without help (may use support object) Continence: has occasional 'accidents' Feeding: feeds self without help Total Score: 0 Information obtained from: patient Using telephone: independent Traveling: independent Shopping: needs assistance Preparing meals: independent Housework: needs assistance Taking medicine: independent Managing money: independent PHQ-9 Over the last 2 weeks, how often have you been bothered by any of the following problems? 1. Little interest or pleasure in doing things: several days 2. Feeling down, depressed, or hopeless: several days 3. Trouble falling or staying asleep, or sleeping too much: more than half the days 4. Feeling tired or having little energy: several days 5. Poor appetite or overeating: not at all 6. Feeling bad about yourself - or that you are a failure or have let yourself or your family down: not at all 7. Trouble concentrating on things, such as reading the newspaper or watching television: not at all 8. Moving or speaking so slowly that other people could have noticed. Or the opposite - being so fidgety or restless that you have been moving around a lot more than usual: not at all 9. Thoughts that you would be better off or of hurting yourself in some way: not at all Total score: 5 Depression Screening Interpretation: Positive Depression Screening Follow-up: Existing condition, In treatment and Community Mental Health Worker F/U Depression Screening Done: Yes 84530 - PHQ-9 Billing: Yes Source: Developed by Drs. Philipp Najera, Nga Sage, Benjamin Berman and colleagues, with an educational ashli from [employer]. Physical Exam Vital Signs: Last Vital Signs Pulse 78 09/03/24 08:19 BP 100/70 09/03/24 08:19 Pulse Ox 98 09/03/24 08:19 Oxygen Delivery Method Room Air 09/03/24 08:19 BMI result Body Mass Index 37.1 Assessment & Plan Assessment & Plan (1) Encounter for annual wellness visit (AWV) in Medicare patient: Code(s): Z00.00 - Encounter for general adult medical examination without abnormal findings Plan: Medical wellness checklist reviewed, discussed with patient and updated. Copy given (2) CAD (coronary artery disease): Code(s): I25.10 - Atherosclerotic heart disease of three affiliated coronary artery without angina pectoris Qualifiers: Associated angina: unspecified whether angina present Coronary Disease- Associated Artery/Lesion type: unspecified vessel or lesion type [place] vs. transplanted heart: three affiliated heart Qualified Code(s): I25.10 - Atherosclerotic heart disease of three affiliated coronary artery without angina pectoris Plan: Currently on aspirin 81 mg daily atorvastatin 80 mg daily and metoprolol tartrate 12.5 mg 1 tablet twice a day (3) Bilateral carotid artery stenosis: Code(s): I65.23 - Occlusion and stenosis of bilateral carotid arteries Plan: Continued on aspirin 81 mg daily, reinforced importance of good blood pressure , glucose and cholesterol control (4) Short bowel syndrome: Code(s): K90.829 - Short bowel syndrome, unspecified Qualifiers: Short bowel syndrome type: unspecified whether colon in continuity Qualified Code(s): K90.829 - Short bowel syndrome, unspecified Plan: Followed by GI clinic, currently on Creon for by and doxycycline as well as cholestyramine (5) Persistent atrial fibrillation: Code(s): I48.19 - Other persistent atrial fibrillation Plan: Currently on Xarelto 20 mg once a day and metoprolol tartrate 12.5 mg 1 tablet twice a day, followed by cardiology (6) Essential hypertension: Code(s): I10 - Essential (primary) hypertension Plan: Blood pressure at goal of less than 130/80. Continue with current medication. Reinforced importance of following a low sodium diet, getting regular exercise, and lowering stress levels. (7) Hyperlipidemia: Comment: Patient is currently taking 80 mg atorvastatin. Code(s): E78.5 - Hyperlipidemia, unspecified Qualifiers: Hyperlipidemia type: unspecified Qualified Code(s): E78.5 - Hyperlipidemia, unspecified Plan: Taking Toradol that 80 mg once a day (8) GERD (gastroesophageal reflux disease): Comment: Patient is currently taking famotidine 40 mg p.o. daily. Code(s): K21.9 - Gastro-esophageal reflux disease without esophagitis Qualifiers: Esophagitis presence: esophagitis presence not specified Qualified Code(s): K21.9 - Gastro-esophageal reflux disease without esophagitis Plan: On famotidine 40 mg daily (9) Degenerative disc disease, cervical: Code(s): M50.30 - Other cervical disc degeneration, unspecified cervical region Plan: Takes acetaminophen 650 mg 1 tablet every 8 hours as needed and cyclobenzaprine 10 mg 1 tablet at bedtime as needed for painful muscle spasm (10) Advanced directives, counseling/discussion: Code(s): Z71.89 - Other specified counseling Plan: Initiated the conversation about Advanced Directives. Advanced Directives help patients prepare for current and future decisions about their medical treatment and place of care. Discussed with patient that it is a process where a patients current condition and prognosis are reviewed, their wishes for information regarding their illness are elicited, and likely medical dilemmas are presented and options discussed. Healthcare proxy already done, MOLST form completed today. These forms can be amended as needed, reviewed yearly and make changes as needed Quality Reporting (2019) Depression/Bipolar (159/160/161/177) PHQ-9: Total score: 5 Coding Level of Care Code Medicare First (G0438) Diagnoses Encounter for annual wellness visit (AWV) in Medicare patient Z00.00 Coronary artery disease involving three affiliated heart, unspecified vessel or lesion type, unspecified whether angina present I25.10 Associated angina: unspecified whether angina present Coronary Disease-Associated Artery/Lesion type: unspecified vessel or lesion type [place] vs. transplanted heart: three affiliated heart Bilateral carotid artery stenosis I65.23 Short bowel syndrome, unspecified whether colon in continuity K90.829 Short bowel syndrome type: unspecified whether colon in continuity Persistent atrial fibrillation I48.19 Essential hypertension I10 Hyperlipidemia, unspecified hyperlipidemia type E78.5 Hyperlipidemia type: unspecified Gastroesophageal reflux disease, unspecified whether esophagitis present K21.9 Esophagitis presence: esophagitis presence not specified Degenerative disc disease, cervical M50.30 Advanced directives, counseling/discussion Z71.89 CPT Codes Advance Care Planning - Time spent: 16-45 minutes ([id number]) Advance Care Planning Advance Care Planning discussion: Completed/Scanned Date of discussion: 09/03/24 Who was present: Patient Forms completed: MOLST Time spent: 16-45 minutes Actual minutes spent: 16
== END 2024-09-03 09:20 | disposition home or self-care (01) ==
PROVIDERS: PCP Internal Medicine; Visit Provider Internal Medicine
DX: Z00.00 Encounter for general adult medical examination without abnormal findings (principal); I48.19 Other persistent atrial fibrillation; I25.10 Atherosclerotic heart disease of native coronary artery without angina pectoris; I65.23 Occlusion and stenosis of bilateral carotid arteries; K90.829 Short bowel syndrome, unspecified; I10 Essential (primary) hypertension; E78.5 Hyperlipidemia, unspecified; K21.9 Gastro-esophageal reflux disease without esophagitis; M50.30 Other cervical disc degeneration, unspecified cervical region

== ENCOUNTER → 2024-09-03 08:10 | Outpatient (BNVA) | payer MEDICARE, SELFPAY | PROVIDERS: PCP Internal Medicine; Visit Provider Internal Medicine | DX: Z00.00 Encounter for general adult medical examination without abnormal findings (principal); I25.10 Atherosclerotic heart disease of native coronary artery without angina pectoris; I65.23 Occlusion and stenosis of bilateral carotid arteries; K90.829 Short bowel syndrome, unspecified; I48.19 Other persistent atrial fibrillation; I10 Essential (primary) hypertension; E78.5 Hyperlipidemia, unspecified; K21.9 Gastro-esophageal reflux disease without esophagitis; M50.30 Other cervical disc degeneration, unspecified cervical region; Z79.01 Long term (current) use of anticoagulants; Z79.82 Long term (current) use of aspirin; Z79.899 Other long term (current) drug therapy; Z71.89 Other specified counseling | CPT/HCPCS: 96127; 99497 ==

== ENCOUNTER 2024-09-11 08:48 | Outpatient (AMB) | payer MEDICARE, SELFPAY ==
[2024-09-11 08:51] VITALS: BP 130/72; PULSE 78; TEMP 36.6; O2SAT 98; BMI 37.1
--- NOTE | 2024-09-11 08:51 | MHC.OFFWIV ---
Intake Vital Signs 09/11/24 08:51 Height 5 ft Weight 190 lb BMI 37.1 BP 130/72 Blood Pressure Location Rt brachial Position Sitting Pulse 78 Pulse Source Pulse Oximeter Temp 97.9 F Temp Source Oral Pulse Oximetry (%) 98 Oxygen Delivery Method Room Air Intake Visit Reasons: EP-rt side leg and hand sore Intake Note: pt is here for right side leg soreness and hand too due to a fall in her apartment Patient Tobacco Use Status: Former Tobacco user Allergies No Known Allergies Allergy (Verified 09/11/24 08:51) Do you need a note to return to daycare/school/sports/work: No HPI HPI Comments History of Present Illness Details Patient is a 68-year-old female with a past medical history of short bowel syndrome and atrial fibrillation on Eliquis complaining of a fall last night in her apartment. She tells me she has chronic double vision in her right eye and her field map technician is currently working on a prism to correct this. She tells me just prior to her fall she felt dizzy, she states it felt like she lost her equilibrium so she fell over onto her right side with her walker onto tile in her home. She did not hit her head, she did not lose consciousness. She denies any chest pain or shortness of breath or any upper respiratory symptoms or fevers. She tells me she has been taking 3 new medications for the past 2 weeks which her GI doctor gave her, doxycycline twice a day for 14 days, Creon and cholestyramine. She tells me she did not like taking the medications as they made her nauseous and she has not been eating much because of it, she finished taking all of these medications 2 days ago. She tells me she has had 3 episodes of dizziness in the last week. She states the dizziness is not worse when she changes positions. [facility] Medical History History of small bowel obstruction Hx of colon cancer, stage III Bipolar 1 disorder CAD (coronary artery disease) Persistent atrial fibrillation Essential hypertension Hyperlipidemia Personal history of nicotine dependence Unsteady gait Thrombocytopenia Anemia Cervical radiculopathy due to degenerative joint disease of spine History of radius fracture Degenerative disc disease, cervical Acquired deafness of left ear Surgical History History of coronary artery bypass graft x 2 (~2018) History of cardiac catheterization History of partial colectomy (~2015) History of reversal of ileostomy History of resection of small bowel (~2020) History of laparoscopic adjustable gastric banding (~2004) History of laparoscopic cholecystectomy (~2003) History of parotidectomy (~2014) History of cervical discectomy (~2013) History of surgery on right wrist History of colonoscopy History of esophagogastroduodenoscopy (EGD) History of appendectomy (~2003) History of tonsillectomy History of bunionectomy Family History Sister Substance use disorder Insulin dependent type 1 diabetes mellitus Mother Colon cancer Breast cancer Coronary artery disease High cholesterol Essential hypertension Father Heart disease Brother Heart disease Social History Household Members: None Housing: Apartment Do you presently have visiting nurse or other home services: No Alcohol intake: current Alcohol intake frequency: holidays/special occasions only Patient Tobacco Use Status: Former Tobacco user Years Smoked: (former smoker - onset 30yo, 1ppd x 33yrs, 30pyh, quit 11/2018) e-Cigarette/Vaping Use: Never Used Second Hand Smoke Exposure: No Advance Directives Date on File: 03/02/24 service: No Current occupational status: retired Cognitive needs: No Hearing needs: No Vision needs: Yes Review of Systems Const All systems reviewed & are unremarkable except as noted in HPI and below Physical Exam Vital Signs: Last Vital Signs Temp 97.9 F 09/11/24 08:51 Pulse 78 09/11/24 08:51 BP 130/72 09/11/24 08:51 Pulse Ox 98 09/11/24 08:51 Oxygen Delivery Method Room Air 09/11/24 08:51 BMI result Body Mass Index 37.1 Const General: cooperative, healthy appearing, comfortable, no acute distress and well developed Orientation/consciousness: patient oriented x3 Limitations: no limitations HEENT Head: Yes normal to inspection Ears: hearing grossly normal bilaterally, external ears normal, TM's normal bilaterally and Abnormal EAC present excessive cerumen on the right General nose exam: Normal external nose present Face and sinus: Yes normal facial exam Mouth: Normal oral and palatal mucosa present Throat: Yes posterior oropharynx normal Eyes General: appearance normal, both eyes and all related structures Neck Neck: Yes normal visual inspection and Yes full ROM Resp Effort & Inspection: normal respiratory effort and able to speak in complete sentences Auscultation: clear to auscultation bilaterally Cardio Rate: regular rate Rhythm: regular rhythm Heart sounds: normal S1 and S2 Skin General skin exam: no rashes or lesions noted Neuro General: patient oriented x3 Extrem General: Yes normal to inspection Right upper extremity: wrist Details: normal ROM and normal vascular exam; no tenderness, no swelling, no unusual warmth, no abrasions, no lacerations and no ecchymosis and Extremity exam: right hand (Association Executive strength 4/5 bilaterally) Details: normal capillary refill, neuromotor exam normal, neurosensory exam normal, tendon exam normal, no swelling and ecchymosis Location: of the 5th digit Location: at the proximal phalanx; no unusual warmth, no abrasions and no lacerations Office Procedures Cerumen Removal From which ear canal was the cerumen removed: right Removal: irrigation Notes: patient tolerated procedure well, no complications and ear canal clear [id number] Irrigation/Lavage Assessment & Plan Assessment & Plan (1) Dizziness: Code(s): R42 - Dizziness and giddiness Plan: Vital signs are stable, patient seems to be in a normal sinus rhythm right now, as auscultated. Her dizziness is likely secondary to reduced p.o. intake and low volume as she has felt nauseous of the last 2 weeks while taking doxycycline. Patient does live alone but she is here with her son so we did give her son precautions on using extra caution when she feels the dizziness coming on, she may benefit from someone staying with her for the next day or 2 to ensure this dizziness resolves. Recommended she slightly increase her p.o. intake (she takes lasix) over the next couple of days and if her symptoms do not subside, she should follow up with her PCP or go to the emergency department for a thorough workup. (2) Traumatic ecchymosis of right hand: Code(s): S60.221A - Contusion of right hand, initial encounter Qualifiers: Encounter type: initial encounter Qualified Code(s): S60.221A - Contusion of right hand, initial encounter Plan: Physical exam relatively normal, just some bruising as she is on a blood thinner. Plan See above Coding Level of Care Code Est Pt Level 4 (15571) Diagnoses Dizziness R42 Traumatic ecchymosis of right hand, initial encounter S60.221A Encounter type: initial encounter CPT Codes Office Procedure - CPT: 70621-Tvo Irrigation/Lavage ([id number])
== END 2024-09-11 10:04 | disposition home or self-care (01) ==
PROVIDERS: PCP Internal Medicine; Visit Provider Physician Assistant
DX: R42 Dizziness and giddiness (principal); S60.221A Contusion of right hand, initial encounter; H61.21 Impacted cerumen, right ear

== ENCOUNTER 2024-09-12 13:54 | Inpatient (IN) | payer MEDICARE, SELFPAY ==
[2024-09-12] VITALS (8 sets, daily range): BP systolic 93–137; BP diastolic 50–81; PULSE 54–89; RESP 12–18; TEMP 36–36.6; O2SAT 95–98; BMI 35.7; BMI 37.9
--- NOTE | ~2024-09-12 | CT_ITS ---
EXAMINATION: CT HEAD WITHOUT CONTRAST (STROKE PROTOCOL) CLINICAL INFORMATION: Stroke protocol. COMPARISON: CT dated January 09, 2024 TECHNIQUE: Contiguous axial imaging was performed from the skull base to vertex without intravenous administration of contrast. This CT examination was performed using dose optimization techniques as appropriate, variously including the following: *Automated exposure control *Adjustment of mA and/or kV according to patient size (this includes techniques or standardized protocols for targeted exams where dose is matched to indication/reason for exam; i.e. extremities or head) *Use of iterative reconstruction technique DLP: 698 mGy-cm FINDINGS: No acute intracranial hemorrhage, mass effect, midline shift, hydrocephalus or herniation. Bilateral multifocal patchy and confluent deep periventricular white matter hypodensities involving centrum semiovale and engle radiata. Delgado-white matter differentiation is normal. Old lacunar infarcts, basal ganglia. Posterior cranial fossa contents demonstrated no acute intracranial hemorrhage or mass effect. Calcified plaques in the V4 segment left vertebral artery, basilar artery and cavernous of the cavernous segments both ICA. Tympanic cavities and mastoid air cells are aerated. No air-fluid levels in the included paranasal sinuses. Bony calvarium is intact. Vascular clips in the right parotid compartment. CT/CT head for stroke IMPRESSION: No acute intracranial hemorrhage. Small vessel occlusive disease. Superimposed acute nonhemorrhagic ischemia/stroke cannot be entirely excluded. This critical result was discussed with at hours on . It was ascertained that the content and urgency of the report was understood at the time of direct communication. Electronically signed by: Filipe Berumen MD 09/12/2024 02:20 PM EDT
--- NOTE | ~2024-09-12 | XR_ITS ---
EXAMINATION: XR CHEST CLINICAL INFORMATION: cpchest pain. COMPARISON: Collated to x-ray dated May 15, 2024.. TECHNIQUE: Frontal view of the chest was obtained. FINDINGS: Pulmonary reticular pattern. No consolidation, pleural effusion or pneumothorax. Calcified plaque, mitral valve. Sternal wires. Cardiomediastinal silhouette size is normal. Multilevel thoracolumbar spondylosis. There is a radiopaque ring with a catheter in the left upper quadrant abdomen and likely gastric banding demonstrated a 15-20 degrees angle. Metallic plate in the lower cervical spine.. XR/XR chest 1V IMPRESSION: Chronic interstitial lung disease. Electronically signed by: Filipe Berumen MD 09/12/2024 02:47 PM EDT
--- NOTE | ~2024-09-12 | CT_ITS ---
EXAMINATION: CTA NECK WITH CONTRAST (STROKE) CTA BRAIN WITH CONTRAST (STROKE) CLINICAL INFORMATION: Headache, weakness COMPARISON: None available. TECHNIQUE: CTA of the head and neck was performed in the axial plane from the mediastinum to the skull vertex using 70 mL Omnipaque 350 intravenous contrast. Additional reformatted multiplanar images including maximum intensity projection MIP images are generated on the CT workstation. This CT examination was performed using dose optimization techniques as appropriate, variously including the following: *Automated exposure control *Adjustment of mA and/or kV according to patient size (this includes techniques or standardized protocols for targeted exams where dose is matched to indication/reason for exam; i.e. extremities or head) *Use of iterative reconstruction technique DLP: 1475 mGy-cm FINDINGS: The degree of stenosis determined by criteria similar to NASCET. CTA NECK: Common origin of the innominate and left common carotid artery, normal variant. Mild atherosclerotic disease scattered through the great vessels without significant stenosis. The origins and cervical segments of the common carotid arteries are patent. There is atherosclerotic plaque involving the distal segment of the left common carotid artery resulting in mild subsegmental stenosis. The common carotid artery bifurcations demonstrate mural calcifications extending into the proximal segments of the cervical internal carotid arteries bilaterally. There is approximately 55% focal stenosis of the right cervical ICA and less than 50% focal stenosis of the left cervical ICA. The remaining segments of the cervical ICAs are patent bilaterally. Nondominant right vertebral artery. The origins and cervical segments of the vertebral arteries are patent bilaterally. No hemodynamically significant stenosis, dissection, or aneurysm. The visualized branches of the external carotid arteries are unremarkable. CTA HEAD: Mild atherosclerotic calcifications of the bilateral carotid siphons. Anterior circulation: The petrous, cavernous, supraclinoid segments of the internal carotid arteries are patent bilaterally. The major branches of the anterior and middle cerebral arteries as well as anterior communicating artery complex are patent. No large vessel occlusion, saccular aneurysm, or dissection. Posterior circulation: The intracranial vertebral arteries are patent bilaterally. The basilar artery is normal in course and caliber. The posterior cerebral and superior cerebellar arteries arise normally from the basilar summit. No aneurysm. On delayed imaging, the venous structures demonstrate normal contrast opacification. No filling defect. No abnormal intracranial enhancement. Soft tissues: No suspicious neck mass or cervical adenopathy. Lungs: Mosaic attenuation bilaterally. Bones: No acute osseous abnormality. No lytic or blastic osseous lesions. Multilevel degenerative changes of the visualized spine. Sequelae of sternotomy. Sequela of anterior spinal fusion at C4-C6. CT/CT angio head neck stroke IMPRESSION: CTA head demonstrates no large vessel occlusion, saccular aneurysm, or dissection. CTA neck demonstrates 55% focal stenosis of the right cervical ICA and less than 50% focal stenosis of the left cervical ICA. There is also mild short segment stenosis of the distal left common carotid artery. Electronically signed by: Rose Marie Potts MD 09/12/2024 02:57 PM EDT RP
--- NOTE | 2024-09-12 14:01 | ECG_ITS ---
Test Reason : STROKE ALERT Blood Pressure : / mmHG Vent. Rate : 080 BPM Atrial Rate : 278 BPM P-R Int : 000 ms QRS Dur : 116 ms QT Int : 440 ms P-R-T Axes : 000 -72 014 degrees QTc Int : 507 ms Atrial flutter with variable A-V block Incomplete right bundle branch block Left anterior fascicular block Minimal voltage criteria for LVH, may be normal variant ( [place] product ) Prolonged QT Abnormal ECG When compared with ECG of 15-MAY-2024 17:47, No significant changes seen Referred By: Olivia Barrientos Electronically Signed By:JACEK JOYA
[2024-09-12 14:08] LABS: Glucose, Whole Blood 96 mg/dL (60-115)
[2024-09-12 14:27] LABS: MANUAL DIFF FLAG NO
[2024-09-12] MEDS: iohexoL 350 MG/ML 100 ML INFUS..BTL IV (14:30)
[2024-09-12] MEDS: 0.9 % Sodium Chloride 1,000 ML 999 ML IV (14:30)
--- NOTE | 2024-09-12 14:30 | PC.NURSE ---
biba from home d/t stroke like sx x tuesday. pt reports loss of balance/weakness/double vision since tuesday. pt also reports BRITT x this morning. bilateral weakness in upper/lower extremities present. +thinners (Xarelto). pt also reports going to urgent care yesterday w/ similar sx as well as decreased PO intake/n/v. upon ED arrival - alert and oriented x 4. vss and up to date. pt immediately to CT. pt noted to have bilateral decreased upper/lower extremity strength. pt seemingly weak. face symmetrical. no slur in speech noted. 20gIV placed in the left AC - labs obtained/sent to lab. after pt had CT completed, pt to ED3. pt changed into hospital attire. nsr on the box shook patcher. ekg performed by tech. pt on RA w/o difficulty. no sob/wob noted. respirations even/unlabored. family bedside for support. plan of care ongoing. call harmon placed within reach.
[2024-09-12 14:35] LABS: INTERNATIONAL NORM RATIO 1.6 (0.9-1.1); Prothrombin Time 19.2 SEC (10.9-12.4)
[2024-09-12 14:37] LABS: Partial Thromboplastin Time 36.9 SEC (26.0-36.8)
[2024-09-12 14:38] LABS: Basophils Absolute Auto 0.1 X10*3/uL (0.0-0.2); Basophils Percent Auto 1.3 % (0-2); Eosinophils Absolute Auto 0.2 X10*3/uL (0.0-0.4); Eosinophils Percent Auto 4.7 % (0-4); Hematocrit 37.9 % (37.0-47.0); Lymphocytes Absolute Auto 0.9 X10*3/uL (1.2-4.9); Lymphocytes Percent Auto 22.8 % (20-40); Mean Corpuscular HGB Conc 34.3 g/dl (31.0-35.0); Mean Corpuscular Hemoglobin 29.7 pg (27.0-33.0); Mean Corpuscular Volume 86.7 fL (80.0-98.0); Mean Platelet Volume 10.9 fL (9.4-12.3); Monocytes Absolute Auto 0.7 X10*3/uL (0.1-1.2); Monocytes Percent Auto 18.1 % (2-11); Neutrophils Percent Auto 53.1 % (45-73); Platelet Count 113 X10*3/uL (160-400); Red Blood Count 4.37 X10*6/uL (4.20-5.50); Red Cell Distribution Width 14.1 % (11.0-16.0); White Blood Count 3.8 X10*3/uL (4.8-10.8)
--- NOTE | 2024-09-12 14:40 | PC.NURSE ---
pt passed nursing swallow evaluation w/o difficulty. no complications noted. IVF continues to infuse at this time. plan of care going. call harmon placed within reach.
[2024-09-12 14:43] LABS: Anion Gap 14 (12-20); Blood Urea Nitrogen 18 mg/dL (9-16); Calcium 8.1 mg/dL (8.4-10.2); Carbon Dioxide 24 mmol/L (22-29); Chloride 103 mmol/L (96-108); Creatinine Clr Calc Pharmacy 56.4; Estimated Glomerular Filt Rate > 60; Glucose Random 95 mg/dL (60-115); Potassium 3.5 mmol/L (3.3-5.1); Sodium 137 mmol/L (135-145)
[2024-09-12 14:52] LABS: Troponin-I High Sensitivity 9.7 ng/L (<3.5-17.0)
--- NOTE | 2024-09-12 15:04 | ED.NEUROSD ---
HPI - Neuro Symptoms/Deficit General Chief Complaint: Neuro Symptoms/Deficit Stated Complaint: stroke alert Time Seen by Provider: 09/12/24 14:00 History of Present Illness HPI Narrative: Patient is a 68-year-old female with a history of atrial fibrillation history of being on Xarelto, previous history of colon cancer status post resection. Presented today with generalized malaise weakness. Patient stated that the symptom has been getting worse over last 2 days. There is no focal weakness. There is no chest pain or diaphoresis. Symptom especially worse today. She came in for further evaluation. Positive decreased p.o. intake. No vomiting no diaphoresis. No chest pain. Related Data Home Medications ?Medication ?Instructions ?Recorded ?Confirmed acetaminophen 325 mg tablet 650 mg PO Q8H PRN ARTHRITIS PAIN 01/09/24 08/14/24 aspirin 81 mg tablet,delayed 81 mg PO DAILY 01/09/24 08/14/24 release citalopram 40 mg tablet 40 mg PO DAILY 01/09/24 08/14/24 quetiapine 200 mg tablet,extended 200 mg PO BEDTIME 01/09/24 08/14/24 release 24 hr ammonium lactate 12 % topical cream 1 appl topical BID 02/06/24 08/14/24 albuterol sulfate 2.5 mg/3 mL 2.5 mg inhalation BID 02/28/24 08/14/24 (0.083 %) solution for nebulization multivitamin 1 tab PO DAILY 02/28/24 08/14/24 lactobacillus combination no.4 3 3,000 mmu cells PO DAILY@0800 04/10/24 08/14/24 billion cell capsule (Probiotic) rivaroxaban 20 mg tablet (Xarelto) 20 mg PO DAILY@1700 05/16/24 07/24/24 temazepam 15 mg capsule 15 mg PO BEDTIME 05/16/24 07/24/24 Previous Rx's ?Medication ?Instructions ?Recorded cyclobenzaprine 10 mg tablet 10 mg PO BEDTIME PRN Painful 03/21/24 muscle spasm #30 tabs metoprolol tartrate 25 mg tablet 12.5 mg (1/2 x 25 mg) PO BID 90 04/11/24 days #90 tabs atorvastatin 80 mg tablet 80 mg PO DAILY #90 tabs 05/07/24 cholecalciferol (vitamin D3) 50 50 mcg PO DAILY #90 caps 05/07/24 mcg (2,000 unit) capsule nystatin 100,000 unit/gram topical 1 appl topical DAILY PRN rash #30 05/28/24 powder grams famotidine 40 mg tablet 40 mg PO DAILY #90 tabs 07/31/24 furosemide 20 mg tablet 20 mg PO DAILY #30 tabs 08/06/24 carbamazepine 200 mg tablet 200 mg PO TID #90 tabs 08/13/24 cholestyramine (with sugar) 4 gram 4 g PO DAILY #60 ea 08/28/24 powder for susp in a packet doxycycline hyclate 100 mg tablet 100 mg PO BID 14 days #28 tabs 08/28/24 [id number] 2 cap PO BID #120 caps 08/28/24 36,000-114,000-180,000 unit capsule,delay rel (Creon) Allergies Allergy/AdvReac Type Severity Reaction Status Date / Time No Known Allergies Allergy Verified 09/12/24 14:06 [facility] Past Medical History Medical History History of small bowel obstruction Hx of colon cancer, stage III Bipolar 1 disorder CAD (coronary artery disease) Persistent atrial fibrillation Essential hypertension Hyperlipidemia Personal history of nicotine dependence Unsteady gait Thrombocytopenia Anemia Cervical radiculopathy due to degenerative joint disease of spine History of radius fracture Degenerative disc disease, cervical Acquired deafness of left ear Surgical History History of coronary artery bypass graft x 2 (~2018) History of cardiac catheterization History of partial colectomy (~2015) History of reversal of ileostomy History of resection of small bowel (~2020) History of laparoscopic adjustable gastric banding (~2004) History of laparoscopic cholecystectomy (~2003) History of parotidectomy (~2014) History of cervical discectomy (~2013) History of surgery on right wrist History of colonoscopy History of esophagogastroduodenoscopy (EGD) History of appendectomy (~2003) History of tonsillectomy History of bunionectomy Family History Family History Sister Substance use disorder Insulin dependent type 1 diabetes mellitus Mother Colon cancer Breast cancer Coronary artery disease High cholesterol Essential hypertension Father Heart disease Brother Heart disease Social History Social History Household Members: None Housing: Apartment Do you presently have visiting nurse or other home services: No Alcohol intake: current Alcohol intake frequency: holidays/special occasions only Patient Tobacco Use Status: Former Tobacco user Years Smoked: (former smoker - onset 30yo, 1ppd x 33yrs, 30pyh, quit 11/2018) Smoked in Last 30 Days: No e-Cigarette/Vaping Use: Never Used Second Hand Smoke Exposure: No Use of substances other than those prescribed or required for medical reasons: No Advance Directives: Yes Advance Directives on File: Yes Advance Directives Date on File: 03/02/24 Do you have a plan to hurt others: No Plan service: No Current occupational status: retired Cognitive needs: No Hearing needs: No Vision needs: Yes Physical Exam Vital Signs: Vital Signs: Last Vital Signs Temp 97.0 F 09/12/24 16:43 Pulse 54 09/12/24 17:43 Resp 16 09/12/24 16:43 BP 93/50 L 09/12/24 17:43 Pulse Ox 95 09/12/24 16:43 O2 Del Method Room Air 09/12/24 16:43 BMI result Body Mass Index 35.7 Medications Administered Discontinued Medications Generic Name Dose Route Start Last Admin Trade Name Yousifq PRN Reason Stop Dose Admin Ceftriaxone Sodium 1 gm 09/12/24 16:52 09/12/24 17:51 Ceftriaxone Sodium 1 Gm Vial IVPUSH 09/12/24 16:53 1 gm ONCE ONE Administration Sodium Chloride 1,000 mls @ 999 mls/hr 09/12/24 14:15 09/12/24 16:08 Ns IV 09/12/24 15:15 Infused .Q1H1M LAURA Infusion Iohexol 100 ml 09/12/24 14:29 09/12/24 14:30 Iohexol 350 Mg/Ml 100 Ml Infus..Btl IV 09/12/24 14:30 70 ml ONCE ONE Administration Medical Decision Making Medical Decision Making [facility] Narrative: Patient presented today with having generalized malaise weakness. Not quite feeling well. CT scan of the head was grossly negative for any acute evidence of bleeding. CTA showed no large vessel occlusion. Patient's glucose was normal no evidence for hypoglycemia. Patient is urine showed possible UTI antibiotic was started. Patient will require admission as she feels generally weak not quite herself currently in stable condition. Differential Diagnosis Differential Diagnoses: The differential diagnosis associated with the presentation includes UTI, CVA, intracranial bleed Admission/Observation Consideration of admission/observation: Escalation of care including admission/observation considered Consult Healthcare Provider Management of the patient was discussed with: Hospitalist Lab Data MDM Lab Attestation statement: I reviewed the patient's lab results. 09/12/24 14:23 09/12/24 14:23 Labs: Lab Results 09/12/24 09/12/24 09/12/24 Range/Units 14:02 14:23 15:03 WBC 3.8 L (4.8-10.8) X10*3/uL RBC 4.37 (4.20-5.50) X10*6/uL Hgb 13.0 (12.0-16.0) g/dl Hct 37.9 (37.0-47.0) % MCV 86.7 (80.0-98.0) fL MCH 29.7 (27.0-33.0) pg MCHC 34.3 (31.0-35.0) g/dl RDW 14.1 (11.0-16.0) % Plt Count 113 L (160-400) X10*3/uL MPV 10.9 (9.4-12.3) fL Immature Gran % (Auto) 0.0 (0.0-0.4) % Neut % (Auto) 53.1 (45-73) % Lymph % (Auto) 22.8 (20-40) % [place] % (Auto) 18.1 H (2-11) % Eos % (Auto) 4.7 H (0-4) % Baso % (Auto) 1.3 (0-2) % Lymph # (Auto) 0.9 L (1.2-4.9) X10*3/uL [place] # (Auto) 0.7 (0.1-1.2) X10*3/uL Eos # (Auto) 0.2 (0.0-0.4) X10*3/uL Baso # (Auto) 0.1 (0.0-0.2) X10*3/uL Abs Immat Gran (auto) 0.00 (0.00-0.03) X10*3/uL Absolute Neuts (auto) 2.0 (2.0-8.3) x10*3/uL Absolute Nucleated RBC 0.000 (0.0-0.012) X10*3/uL Nucleated RBC % (auto) 0.0 (0.0-0.2) /100WBC PT 19.2 H (10.9-12.4) SEC INR 1.6 H (0.9-1.1) APTT 36.9 H (26.0-36.8) SEC Sodium 137 (135-145) mmol/L Potassium 3.5 (3.3-5.1) mmol/L Chloride 103 (96-108) mmol/L Carbon Dioxide 24 (22-29) mmol/L Anion Gap 14 (12-20) BUN 18 H (9-16) mg/dL Creatinine 0.91 (0.5-1.4) mg/dL Estim Creat Clear Calc 56.4 Estimated GFR > 60 POC Glucose 96 (60-115) mg/dL Random Glucose 95 (60-115) mg/dL Calcium 8.1 L D (8.4-10.2) mg/dL Troponin I High Sens 9.7 D (<3.5-17.0) ng/L Urine Color Yellow Urine Appearance Clear Urine pH 6.5 (5.0-9.0) Ur Specific [place] 1.020 (1.005-1.025) Urine Protein Negative (Neg-Trace) mg/dL Urine Glucose (UA) Negative (Negative) mg/dL Urine Ketones Negative (Negative) mg/dL Urine Blood Negative (Negative) Urine Nitrite Negative (Negative) Ur Leukocyte Esterase Moderate (2+) H (Negative) Urine RBC 0-2 (0-2) /HPF Urine WBC 6-10 H (0-5) /HPF Ur Squamous Epith Cells 0-2 (0-2) /HPF Urine Bacteria None Seen (None Seen) Hyaline Casts 0-2 (0-2) /LPF Independent Interpretation I performed an independent interpretation of an: EKG (My interpretation patient's EKG shows an atrial flutter pattern heart rate was 80 QRS is normal QTC is prolonged no acute ST segment elevation noted.) and CT Scan (CT head was grossly negative for any acute evidence of bleeding. I discussed the finding with the radiologist. CTA was read as no large vessel occlusions) Radiology Impression Discussion of test interpretation with radiology: I have reviewed the radiologist's reading. Independent Historian Clinical information obtained from an independent historian. History obtained from or confirmed by: EMS External Record Review External record reviewed: Inpatient record Chronic Conditions Patient?s care impacted by: Hypertension Atrial fibrillation on Eliquis Social Determinants Patient?s care significantly limited by Social Determinants of Health including: Problems related to primary support group Discharge Plan Discharge Clinical Impression: Urinary tract infection Patient Disposition: Admitted As Inpatient Print Language: Albanian
--- NOTE | 2024-09-12 15:05 | PC.NURSE ---
1:1 assist needed to ambulate to bathroom. urine obtained/sent to lab by [facility].
[2024-09-12 15:11] LABS: Appearance Urine Clear; Color Urine Yellow; Glucose Urine UA Negative (Negative); Leukocyte Esterase Urine Moderate (2+) (Negative); Nitrite Urine Negative (Negative); PH 6.5 (5.0-9.0); UMIC TRIGGER UACC YES; Urine Blood Negative (Negative); Urine Ketones Negative (Negative); Urine Protein Negative (Neg-Trace)
[2024-09-12 15:14] LABS: Bacteria Urine None Seen (None Seen); Hyaline Casts Urine 0-2 /LPF (0-2); RBC Urine 0-2 /HPF (0-2); Squamous Epithelial Cell Urine 0-2 /HPF (0-2); UACC Culture Trigger YES
--- NOTE | 2024-09-12 16:08 | MHC.STROKE ---
Met with patient and son in room 3. Pt awake, alert and oriented x 3. skin warm and dry. resp even , easy unlabored. speaking in full clear sentences. Engaged in conversation. Reports not feeling well for approximately 2 weeks. Went to urgent care yesterday. States that she has recently started on some new medications for hx of GI issues and thinks they're not agreeing with me . Today reported a headache. Pt wearing patch on right eye. States if she doesn't wear the patch she feels really dizzy . Describes it as being on a boat. Stroke Education discussed with patient and son. Booklet provided. Risk factors including afib, blood pressure, diet discussed. All questions answered. Will continue to assist as needed.
--- NOTE | 2024-09-12 17:47 | PC.NURSE ---
orthostatic vital signs +. pt verbalizes increased dizziness/double vision when standing. admitting provider notified/aware.
[2024-09-12] MEDS: cefTRIAXone sodium 1 GM VIAL IVPUSH (17:51)
--- NOTE | 2024-09-12 17:55 | PM.IMHP ---
History of Present Illness Date of Service: 09/12/24 Chief Complaint: Dizziness, fall A 68 years old lady with PMH of 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 The patient had decreased activity and lost significant amount of weight over the last year (40-50 lbs) per her son. She reports double vision since she had cataract surgery months ago. For the last few days she has been feeling more unsteady and dizzy upon standing up and going to the bathroom. Fell at home with no injuries on Tuesday. No chest pain, palpitations, SOB, nausea, vomiting, diarrhea or urinary symptoms. In ED found to have UTI. Positive orthostatic vitals. CT and CTA were negative for any acute findings. Admitted for further evaluation and treatment. Review of Systems Review of Systems: No fever, chills but has weakness No chest pain, palpitation No shortness of breath or coughing No abdominal pain, nausea or vomiting No urinary symptoms No any rash or wounds [facility] Medical History History of small bowel obstruction Hx of colon cancer, stage III Bipolar 1 disorder CAD (coronary artery disease) Persistent atrial fibrillation Essential hypertension Hyperlipidemia Personal history of nicotine dependence Unsteady gait Thrombocytopenia Anemia Cervical radiculopathy due to degenerative joint disease of spine History of radius fracture Degenerative disc disease, cervical Acquired deafness of left ear Family History Sister Substance use disorder Insulin dependent type 1 diabetes mellitus Mother Colon cancer Breast cancer Coronary artery disease High cholesterol Essential hypertension Father Heart disease Brother Heart disease Surgical History History of coronary artery bypass graft x 2 (~2018) History of cardiac catheterization History of partial colectomy (~2015) History of reversal of ileostomy History of resection of small bowel (~2020) History of laparoscopic adjustable gastric banding (~2004) History of laparoscopic cholecystectomy (~2003) History of parotidectomy (~2014) History of cervical discectomy (~2013) History of surgery on right wrist History of colonoscopy History of esophagogastroduodenoscopy (EGD) History of appendectomy (~2003) History of tonsillectomy History of bunionectomy Social History Household Members: None Housing: Apartment Do you presently have visiting nurse or other home services: No Alcohol intake: current Alcohol intake frequency: holidays/special occasions only Patient Tobacco Use Status: Former Tobacco user Years Smoked: (former smoker - onset 30yo, 1ppd x 33yrs, 30pyh, quit 11/2018) Smoked in Last 30 Days: No e-Cigarette/Vaping Use: Never Used Second Hand Smoke Exposure: No Use of substances other than those prescribed or required for medical reasons: No Advance Directives: Yes Advance Directives on File: Yes Advance Directives Date on File: 03/02/24 Do you have a plan to hurt others: No Plan service: No Current occupational status: retired Cognitive needs: No Hearing needs: No Vision needs: Yes Meds Allergies Allergy/AdvReac Type Severity Reaction Status Date / Time No Known Allergies Allergy Verified 09/12/24 14:06 Active Medications: Current Medications Acetaminophen (Acetaminophen 325 Mg Tablet) 650 mg PO Q6H PRN PRN Reason: Pain, Mild (Pain Scale 1-3), fever or headache Aspirin (Aspirin Enteric Coated 81 Mg Tablet.Dr) 81 mg PO DAILY LAURA Carbamazepine (Carbamazepine 100 Mg Tab.Chew) 100 mg PO TID [facility] Ceftriaxone Sodium (Ceftriaxone Sodium 1 Gm Vial) 1 gm IVPUSH Q24H [facility] Sodium Chloride (Ns) 500 mls @ 500 mls/hr IV .Q1H LAURA Stop: 09/12/24 18:59 Metoprolol Tartrate (Metoprolol Tartrate 12.5 Mg Halftab) 12.5 mg PO BID [facility]; Protocol Ondansetron HCl (Ondansetron Hcl 4 Mg/2 Ml Vial) 4 mg IVPUSH Q8H PRN PRN Reason: Nausea and Vomiting Quetiapine Fumarate (Quetiapine Fumarate 50 Mg Tablet) 50 mg PO BEDTIME PRN PRN Reason: Insomnia Rivaroxaban (Rivaroxaban 20 Mg Tablet) 20 mg PO DAILY@1700 [facility] Temazepam (Temazepam 15 Mg Capsule) 15 mg PO BEDTIME PRN PRN Reason: Insomnia Home Medications ?Medication ?Instructions ?Recorded ?Confirmed ?Last Taken ?Type acetaminophen 325 mg tablet 650 mg PO Q8H PRN ARTHRITIS PAIN 01/09/24 08/14/24 05/15/24 History aspirin 81 mg tablet,delayed 81 mg PO DAILY 01/09/24 08/14/24 05/15/24 History release citalopram 40 mg tablet 40 mg PO DAILY 01/09/24 08/14/24 05/15/24 History quetiapine 200 mg tablet,extended 200 mg PO BEDTIME 01/09/24 08/14/24 05/13/24 History release 24 hr ammonium lactate 12 % topical cream 1 appl topical BID 02/06/24 08/14/24 05/15/24 History albuterol sulfate 2.5 mg/3 mL 2.5 mg inhalation BID 02/28/24 08/14/24 05/15/24 History (0.083 %) solution for nebulization multivitamin 1 tab PO DAILY 02/28/24 08/14/24 05/15/24 History lactobacillus combination no.4 3 3,000 mmu cells PO DAILY@0800 04/10/24 08/14/24 05/15/24 History billion cell capsule (Probiotic) rivaroxaban 20 mg tablet (Xarelto) 20 mg PO DAILY@1700 05/16/24 07/24/24 05/15/24 History temazepam 15 mg capsule 15 mg PO BEDTIME 05/16/24 07/24/24 05/13/24 History Physical Exam Vital Signs and Narrative: Vital Signs: Last Vital Signs Temp 97.0 F 09/12/24 16:43 Pulse 54 09/12/24 17:43 Resp 16 09/12/24 16:43 BP 93/50 L 09/12/24 17:43 Pulse Ox 95 09/12/24 16:43 O2 Del Method Room Air 09/12/24 16:43 BMI result Body Mass Index 35.7 Const: Other: Constitutional : Awake, interactive, not in distress Neck : Normal inspection, Supple Cardiovascular : irregular irregular, no JVP, no lower extremity edema Respiratory : good bilateral air entry, no crackles, wheezes or rhonchi Gastrointestinal: soft, lax, Normal bowel sounds, Non tender Skin : Warm, Dry Neurological : Alert & oriented x3, No focal deficit Results Labs 09/12/24 14:23 09/12/24 14:23 Labs: Laboratory Results - last 24 hr 09/12/24 09/12/24 09/12/24 14:02 14:23 15:03 MCV 86.7 MCH 29.7 MCHC 34.3 RDW 14.1 Plt Count 113 L MPV 10.9 Immature Gran % (Auto) 0.0 Neut % (Auto) 53.1 Lymph % (Auto) 22.8 [place] % (Auto) 18.1 H Eos % (Auto) 4.7 H Baso % (Auto) 1.3 Lymph # (Auto) 0.9 L [place] # (Auto) 0.7 Eos # (Auto) 0.2 Baso # (Auto) 0.1 Abs Immat Gran (auto) 0.00 Absolute Neuts (auto) 2.0 Absolute Nucleated RBC 0.000 Nucleated RBC % (auto) 0.0 PT 19.2 H INR 1.6 H APTT 36.9 H Anion Gap 14 Estim Creat Clear Calc 56.4 Estimated GFR > 60 POC Glucose 96 Random Glucose 95 Calcium 8.1 L D Troponin I High Sens 9.7 D Urine Color Yellow Urine Appearance Clear Urine pH 6.5 Ur Specific [place] 1.020 Urine Protein Negative Urine Glucose (UA) Negative Urine Ketones Negative Urine Blood Negative Urine Nitrite Negative Ur Leukocyte Esterase Moderate (2+) H Urine RBC 0-2 Urine WBC 6-10 H Ur Squamous Epith Cells 0-2 Urine Bacteria None Seen Hyaline Casts 0-2 Imaging Radiologist's Impressions: Impressions Head CT 09/12/24 14:01 IMPRESSION: No acute intracranial hemorrhage. Small vessel occlusive disease. Superimposed acute nonhemorrhagic ischemia/stroke cannot be entirely excluded. This critical result was discussed with at hours on . It was ascertained that the content and urgency of the report was understood at the time of direct communication. Electronically signed by: Filipe Berumen MD 09/12/2024 02:20 PM EDT RP Chest X-Ray 09/12/24 14:02 IMPRESSION: Chronic interstitial lung disease. Electronically signed by: Filipe Berumen MD 09/12/2024 02:47 PM EDT RP Head/Neck CTA 09/12/24 14:14 IMPRESSION: CTA head demonstrates no large vessel occlusion, saccular aneurysm, or dissection. CTA neck demonstrates 55% focal stenosis of the right cervical ICA and less than 50% focal stenosis of the left cervical ICA. There is also mild short segment stenosis of the distal left common carotid artery. Electronically signed by: Rose Marie Potts MD 09/12/2024 02:57 PM EDT RP Assessment and Plan (1) Urinary tract infection: Status: Acute (2) Dizziness: Status: Acute (3) Postural hypotension: Status: Acute Plan A 68 years old lady with PMH of 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 Dizziness 2/2 orthostatic hypotension Likely multifactorial with decrease PO intake, weight loss and polypharmacy CT , CTA negative for any acute findings bolus of fluids Hold lasix and Flexiril Decrease Carbamazepine, Seroquel Monitor BP Fall 2/2 dizziness PT evaluation UTI pending cultures Start Ceftriaxone Persistant Afib Xarelto, Metoprolol DVT PPx Xarelto The patient will likely need 2 overnight hospital stay pending resolution of postural changes and treatment of urine infection pending PT eval. Quality Stroke Does the patient have a stroke diagnosis?: No VTE Prior VTE?: No VTE Risk Level:: Medical - moderate - high VTE Device Contraindication: Treatment Not Indicated VTE Drug Contraindication: N/A - Med Ordered
[2024-09-12] MEDS: 0.9 % Sodium Chloride 500 ML IV (18:32)
--- NOTE | 2024-09-12 19:12 | PHA.MEDREC ---
Addendum entered by Lashay Mai RPh 09/12/24 19:50: reviewed by [facility]. Original Note: Pharmacy Consult ? Medication Reconciliation Pharmacy has completed the medication reconciliation. Spoke to patient to confirm med list. Patient had a list of medications on son's phone. Patient states she is no longer taking Doxycycline hyc 100 mg, and Creon .
[2024-09-12] MEDS: Rivaroxaban 20 MG TABLET PO (22:03)
[2024-09-12] MEDS: carBAMazepine 100 MG TAB.CHEW PO (22:03)
[2024-09-12] MEDS: Metoprolol Tartrate 12.5 MG HALFTAB PO (22:03)
[2024-09-12] MEDS: Temazepam 15 MG CAPSULE PO (23:01)
[2024-09-12] MEDS: QUEtiapine Fumarate 50 MG TABLET PO (23:22)
[2024-09-13] VITALS (10 sets, daily range): BP systolic 94–140; BP diastolic 51–84; PULSE 54–84; RESP 18–20; TEMP 36.1–36.9; O2SAT 96–97
--- NOTE | 2024-09-13 | ECG_ITS ---
Test Reason : chest pain Blood Pressure : / mmHG Vent. Rate : 076 BPM Atrial Rate : 000 BPM P-R Int : 000 ms QRS Dur : 114 ms QT Int : 450 ms P-R-T Axes : 000 -66 012 degrees QTc Int : 506 ms Atrial fibrillation Incomplete right bundle branch block Left anterior fascicular block Minimal voltage criteria for LVH, may be normal variant ( [place] product ) Prolonged QT Abnormal ECG When compared with ECG of 12-SEP-2024 14:33, Atrial fibrillation has replaced Atrial flutter Referred By: Zoraida Graves Electronically Signed By:JACEK JOYA
[2024-09-13 07:01] LABS: Prothrombin Time Whole Bld POC 18.4 sec (11.1-13.5); ~PT, ~INR - Anti Coag Clinic 1.5 (0.9-1.1)
[2024-09-13 08:12] LABS: Anion Gap 13 (12-20); Blood Urea Nitrogen 18 mg/dL (9-16); Calcium 8.1 mg/dL (8.4-10.2); Carbon Dioxide 25 mmol/L (22-29); Chloride 105 mmol/L (96-108); Creatinine Clr Calc Pharmacy 59.7; Estimated Glomerular Filt Rate > 60; Glucose Random 92 mg/dL (60-115); Potassium 3.4 mmol/L (3.3-5.1); Sodium 140 mmol/L (135-145)
[2024-09-13 08:21] LABS: Troponin-I High Sensitivity 12.6 ng/L (<3.5-17.0)
[2024-09-13] MEDS: Metoprolol Tartrate 12.5 MG HALFTAB PO ×2 (08:31→20:32)
[2024-09-13] MEDS: Aspirin Enteric Coated 81 MG TABLET.DR PO (08:32)
[2024-09-13] MEDS: Acetaminophen 325 MG TABLET 650 MG PO (08:32)
[2024-09-13] MEDS: carBAMazepine 100 MG TAB.CHEW PO (08:32)
--- NOTE | 2024-09-13 09:49 | P.CNNE_ITS ---
History of Present Illness Data of Consult Service Date: 09/13/24 Primary Care Provider: Molly Mcgowan MD HPI Reason for consult: Unsteadiness and double vision 68 years old woman who came to hospital with loss of balance and double vision. She reported that double vision started in summer after cataract surgery. Now and then she would see vertigo diplopia. She has been using a walker for ambulation and yesterday or day before yesterday she felt unsteady like she was swaying on a boat. She had felt sense of motion or spinning sensation for few seconds upon turning in the past. There was no mental confusion associated with the symptoms or headache. Review of Systems 2 Review of Systems: No recent cold or flu-like illness no ear pain or discharge or sudden change in hearing PMFSH Past Medical History Medical History History of small bowel obstruction Hx of colon cancer, stage III Bipolar 1 disorder CAD (coronary artery disease) Persistent atrial fibrillation Essential hypertension Hyperlipidemia Personal history of nicotine dependence Unsteady gait Thrombocytopenia Anemia Cervical radiculopathy due to degenerative joint disease of spine History of radius fracture Degenerative disc disease, cervical Acquired deafness of left ear Family History Family History Sister Substance use disorder Insulin dependent type 1 diabetes mellitus Mother Colon cancer Breast cancer Coronary artery disease High cholesterol Essential hypertension Father Heart disease Brother Heart disease Surgical History Surgical History History of coronary artery bypass graft x 2 (~2018) History of cardiac catheterization History of partial colectomy (~2015) History of reversal of ileostomy History of resection of small bowel (~2020) History of laparoscopic adjustable gastric banding (~2004) History of laparoscopic cholecystectomy (~2003) History of parotidectomy (~2014) History of cervical discectomy (~2013) History of surgery on right wrist History of colonoscopy History of esophagogastroduodenoscopy (EGD) History of appendectomy (~2003) History of tonsillectomy History of bunionectomy Social History Social History Household Members: None Housing: Apartment Do you presently have visiting nurse or other home services: No Unable to assess alcohol history related to: Unable to respond Alcohol intake: current Alcohol intake frequency: holidays/special occasions only Patient Tobacco Use Status: Former Tobacco user Tobacco use type: Cigarette Years Smoked: (former smoker - onset 30yo, 1ppd x 33yrs, 30pyh, quit 11/2018) Smoked in Last 30 Days: No e-Cigarette/Vaping Use: Never Used Patient Interested in Nicotine Replacement: No Second Hand Smoke Exposure: No Use of substances other than those prescribed or required for medical reasons: No Currently Displaying Signs/Symptoms of Drug Intoxication Withdrawal: No Have you been hit, kicked, punched, or otherwise hurt by someone within the past year? If so, by whom?: No Do you feel safe in your current relationship?: No Current Relationship Is there a partner from a previous relationship who is making you feel unsafe now?: No Advance Directives: Yes Advance Directives on File: Yes Advance Directives Date on File: 03/02/24 Do you have a plan to hurt others: No Plan Recently lost weight without trying: Unsure How much weight loss: Unsure Eating poorly because of decreased appetite: Yes Nutrition screen score: 5 Nutrition Risks: No Nutritional Risk Patient : No : No Poor oral hygiene: No service: No Current occupational status: retired Cognitive needs: No Hearing needs: No Vision needs: Yes Meds Allergies Allergy/AdvReac Type Severity Reaction Status Date / Time No Known Allergies Allergy Verified 09/12/24 14:06 Active Medications: Current Medications Acetaminophen (Acetaminophen 325 Mg Tablet) 650 mg PO Q6H PRN PRN Reason: Pain, Mild (Pain Scale 1-3), fever or headache Last Admin: 09/13/24 08:32 Dose: 650 mg Aspirin (Aspirin Enteric Coated 81 Mg Tablet.Dr) 81 mg PO DAILY [facility] Last Admin: 09/13/24 08:32 Dose: 81 mg Carbamazepine (Carbamazepine 100 Mg Tab.Chew) 100 mg PO TID [facility] Last Admin: 09/13/24 08:32 Dose: 100 mg Ceftriaxone Sodium (Ceftriaxone Sodium 1 Gm Vial) 1 gm IVPUSH Q24H [facility] Metoprolol Tartrate (Metoprolol Tartrate 12.5 Mg Halftab) 12.5 mg PO BID [facility]; Protocol Last Admin: 09/13/24 08:31 Dose: 12.5 mg Ondansetron HCl (Ondansetron Hcl 4 Mg/2 Ml Vial) 4 mg IVPUSH Q8H PRN PRN Reason: Nausea and Vomiting Quetiapine Fumarate (Quetiapine Fumarate 50 Mg Tablet) 50 mg PO BEDTIME PRN PRN Reason: Insomnia Last Admin: 09/12/24 23:22 Dose: 50 mg Rivaroxaban (Rivaroxaban 20 Mg Tablet) 20 mg PO DAILY@1700 [facility] Last Admin: 09/12/24 22:03 Dose: 20 mg Temazepam (Temazepam 15 Mg Capsule) 15 mg PO BEDTIME PRN PRN Reason: Insomnia Last Admin: 09/12/24 23:01 Dose: 15 mg Home Medications ?Medication ?Instructions ?Recorded ?Confirmed ?Last Taken ?Type acetaminophen 325 mg tablet 650 mg PO Q8H PRN ARTHRITIS PAIN 01/09/24 09/12/24 05/15/24 History aspirin 81 mg tablet,delayed 81 mg PO DAILY 01/09/24 09/12/24 09/12/24 History release citalopram 40 mg tablet 40 mg PO DAILY 01/09/24 09/12/24 09/12/24 History quetiapine 200 mg tablet,extended 200 mg PO BEDTIME 01/09/24 09/12/24 09/11/24 History release 24 hr ammonium lactate 12 % topical cream 1 appl topical BID PRN Rash 02/06/24 09/12/24 05/15/24 History albuterol sulfate 2.5 mg/3 mL 2.5 mg inhalation BID 02/28/24 09/12/24 09/12/24 History (0.083 %) solution for nebulization multivitamin 1 tab PO DAILY 02/28/24 09/12/24 09/12/24 History lactobacillus combination no.4 3 3,000 mmu cells PO DAILY@0800 04/10/24 09/12/24 09/12/24 History billion cell capsule (Probiotic) rivaroxaban 20 mg tablet (Xarelto) 20 mg PO DAILY@1700 05/16/24 09/12/24 09/12/24 History temazepam 15 mg capsule 15 mg PO BEDTIME 05/16/24 09/12/24 09/11/24 History Physical Exam 2 Vital Signs: Vital Signs: Last Vital Signs Temp 98.4 F 09/13/24 07:34 Pulse 72 09/13/24 08:15 Resp 18 09/13/24 07:34 BP 124/69 09/13/24 08:15 Pulse Ox 97 09/13/24 08:15 O2 Del Method Room Air 09/13/24 07:34 BMI result Body Mass Index 37.9 Neuro: Other: She is alert and awake with normal spontaneity of speech fluency comprehension and affect. With rightward gaze she said double and diplopia disappeared with closing 1 eye. There was no focal weakness. [id number] testing revealed mild ataxia. Speech was normal. Results Labs 09/12/24 14:23 09/13/24 07:34 Labs: Short CBC 09/12/24 Range/Units 14:23 WBC 3.8 L (4.8-10.8) X10*3/uL Hgb 13.0 (12.0-16.0) g/dl Hct 37.9 (37.0-47.0) % Plt Count 113 L (160-400) X10*3/uL BMP 09/12/24 09/13/24 14:23 07:34 Sodium 137 140 Potassium 3.5 3.4 Chloride 103 105 Carbon Dioxide 24 25 BUN 18 H 18 H Creatinine 0.91 0.89 Calcium 8.1 L D 8.1 L Urine 09/12/24 Range/Units 15:03 Urine Color Yellow Urine Appearance Clear Urine pH 6.5 (5.0-9.0) Ur Specific [place] 1.020 (1.005-1.025) Urine Protein Negative (Neg-Trace) mg/dL Urine Glucose (UA) Negative (Negative) mg/dL Head CT revealed [id number] diffuse cortical atrophy. CTA did not reveal any vascular lesion. Assessment and Plan (1) Dizziness: Status: Acute Probably peripheral vestibular disorder contributing to multifactorial gait disorder. She was advised that there was no medicinal treatment for this and she should be careful and use a walker and avoid activities that could put her at risk of falling. (2) Diplopia: Status: Acute Likely due to right lateral rectus palsy. It could improve in few months or might require ophthalmological correction. If it worsens, neuromuscular disorder can be considered but at this time it was not worsening and there was no ptosis. Procedures Date of Service Date of Service: 09/13/24
--- NOTE | 2024-09-13 10:06 | ED_ITS ---
HPI - Neuro Symptoms/Deficit General Chief Complaint: Neuro Symptoms/Deficit Stated Complaint: stroke alert Time Seen by Provider: 09/12/24 14:00 Related Data Home Medications ?Medication ?Instructions ?Recorded ?Confirmed acetaminophen 325 mg tablet 650 mg PO Q8H PRN ARTHRITIS PAIN 01/09/24 09/12/24 aspirin 81 mg tablet,delayed 81 mg PO DAILY 01/09/24 09/12/24 release citalopram 40 mg tablet 40 mg PO DAILY 01/09/24 09/12/24 quetiapine 200 mg tablet,extended 200 mg PO BEDTIME 01/09/24 09/12/24 release 24 hr ammonium lactate 12 % topical cream 1 appl topical BID PRN Rash 02/06/24 09/12/24 albuterol sulfate 2.5 mg/3 mL 2.5 mg inhalation BID 02/28/24 09/12/24 (0.083 %) solution for nebulization multivitamin 1 tab PO DAILY 02/28/24 09/12/24 lactobacillus combination no.4 3 3,000 mmu cells PO DAILY@0800 04/10/24 09/12/24 billion cell capsule (Probiotic) rivaroxaban 20 mg tablet (Xarelto) 20 mg PO DAILY@1700 05/16/24 09/12/24 temazepam 15 mg capsule 15 mg PO BEDTIME 05/16/24 09/12/24 Previous Rx's ?Medication ?Instructions ?Recorded metoprolol tartrate 25 mg tablet 12.5 mg (1/2 x 25 mg) PO BID 90 04/11/24 days #90 tabs atorvastatin 80 mg tablet 80 mg PO DAILY #90 tabs 05/07/24 cholecalciferol (vitamin D3) 50 50 mcg PO DAILY #90 caps 05/07/24 mcg (2,000 unit) capsule nystatin 100,000 unit/gram topical 1 appl topical DAILY PRN rash #30 05/28/24 powder grams famotidine 40 mg tablet 40 mg PO DAILY #90 tabs 07/31/24 furosemide 20 mg tablet 20 mg PO DAILY #30 tabs 08/06/24 carbamazepine 200 mg tablet 200 mg PO TID #90 tabs 08/13/24 cholestyramine (with sugar) 4 gram 4 g PO DAILY #60 ea 08/28/24 powder for susp in a packet Allergies Allergy/AdvReac Type Severity Reaction Status Date / Time No Known Allergies Allergy Verified 09/12/24 14:06 [facility] Past Medical History Medical History History of small bowel obstruction Hx of colon cancer, stage III Bipolar 1 disorder CAD (coronary artery disease) Persistent atrial fibrillation Essential hypertension Hyperlipidemia Personal history of nicotine dependence Unsteady gait Thrombocytopenia Anemia Cervical radiculopathy due to degenerative joint disease of spine History of radius fracture Degenerative disc disease, cervical Acquired deafness of left ear Surgical History History of coronary artery bypass graft x 2 (~2018) History of cardiac catheterization History of partial colectomy (~2015) History of reversal of ileostomy History of resection of small bowel (~2020) History of laparoscopic adjustable gastric banding (~2004) History of laparoscopic cholecystectomy (~2003) History of parotidectomy (~2014) History of cervical discectomy (~2013) History of surgery on right wrist History of colonoscopy History of esophagogastroduodenoscopy (EGD) History of appendectomy (~2003) History of tonsillectomy History of bunionectomy Family History Family History Sister Substance use disorder Insulin dependent type 1 diabetes mellitus Mother Colon cancer Breast cancer Coronary artery disease High cholesterol Essential hypertension Father Heart disease Brother Heart disease Social History Social History Household Members: None Housing: Apartment Do you presently have visiting nurse or other home services: No Unable to assess alcohol history related to: Unable to respond Alcohol intake: current Alcohol intake frequency: holidays/special occasions only Patient Tobacco Use Status: Former Tobacco user Tobacco use type: Cigarette Years Smoked: (former smoker - onset 30yo, 1ppd x 33yrs, 30pyh, quit 11/2018) Smoked in Last 30 Days: No e-Cigarette/Vaping Use: Never Used Patient Interested in Nicotine Replacement: No Second Hand Smoke Exposure: No Use of substances other than those prescribed or required for medical reasons: No Currently Displaying Signs/Symptoms of Drug Intoxication Withdrawal: No Have you been hit, kicked, punched, or otherwise hurt by someone within the past year? If so, by whom?: No Do you feel safe in your current relationship?: No Current Relationship Is there a partner from a previous relationship who is making you feel unsafe now?: No Advance Directives: Yes Advance Directives on File: Yes Advance Directives Date on File: 03/02/24 Do you have a plan to hurt others: No Plan Recently lost weight without trying: Unsure How much weight loss: Unsure Eating poorly because of decreased appetite: Yes Nutrition screen score: 5 Nutrition Risks: No Nutritional Risk Patient : No : No Poor oral hygiene: No service: No Current occupational status: retired Cognitive needs: No Hearing needs: No Vision needs: Yes Physical Exam 2 Vital Signs: Vital Signs: Last Vital Signs Temp 98.4 F 09/13/24 07:34 Pulse 72 09/13/24 08:15 Resp 18 09/13/24 07:34 BP 124/69 09/13/24 08:15 Pulse Ox 97 09/13/24 08:15 O2 Del Method Room Air 09/13/24 07:34 BMI result Body Mass Index 35.7 Medications Administered Generic Name Dose Route Start Last Admin Trade Name Freq PRN Reason Stop Dose Admin Acetaminophen 650 mg 09/12/24 17:41 09/13/24 08:32 Acetaminophen 325 Mg Tablet PO 650 mg Q6H PRN Administration Pain, Mild (Pain Scale 1-3), fever or headache Aspirin 81 mg 09/13/24 09:00 09/13/24 08:32 Aspirin Enteric Coated 81 Mg Tablet.Dr PO 81 mg DAILY [facility] Administration Carbamazepine 100 mg 09/12/24 21:00 09/13/24 08:32 Carbamazepine 100 Mg Tab.Chew PO 100 mg TID [facility] Administration Metoprolol Tartrate 12.5 mg 09/12/24 21:00 09/13/24 08:31 Metoprolol Tartrate 12.5 Mg Halftab PO 12.5 mg BID [facility] Administration Protocol Quetiapine Fumarate 50 mg 09/12/24 17:50 09/12/24 23:22 Quetiapine Fumarate 50 Mg Tablet PO 50 mg BEDTIME PRN Administration Insomnia Rivaroxaban 20 mg 09/12/24 21:30 09/12/24 22:03 Rivaroxaban 20 Mg Tablet PO 20 mg DAILY@1700 [facility] Administration Temazepam 15 mg 09/12/24 17:50 09/12/24 23:01 Temazepam 15 Mg Capsule PO 15 mg BEDTIME PRN Administration Insomnia Discontinued Medications Generic Name Dose Route Start Last Admin Trade Name Yousifq PRN Reason Stop Dose Admin Ceftriaxone Sodium 1 gm 09/12/24 16:52 09/12/24 17:51 Ceftriaxone Sodium 1 Gm Vial IVPUSH 09/12/24 16:53 1 gm ONCE ONE Administration Sodium Chloride 1,000 mls @ 999 mls/hr 09/12/24 14:15 09/12/24 16:08 Ns IV 09/12/24 15:15 Infused .Q1H1M [facility]A Infusion Sodium Chloride 500 mls @ 500 mls/hr 09/12/24 18:00 09/12/24 20:27 Ns IV 09/12/24 18:59 Infused .Q1H [facility] Infusion Iohexol 100 ml 09/12/24 14:29 09/12/24 14:30 Iohexol 350 Mg/Ml 100 Ml Infus..Btl IV 09/12/24 14:30 70 ml ONCE ONE Administration Medical Decision Making Lab Data 09/12/24 14:23 09/13/24 07:34 Labs: Lab Results 09/12/24 09/12/24 09/12/24 Range/Units 14:02 14:23 15:03 WBC 3.8 L (4.8-10.8) X10*3/uL RBC 4.37 (4.20-5.50) X10*6/uL Hgb 13.0 (12.0-16.0) g/dl Hct 37.9 (37.0-47.0) % MCV 86.7 (80.0-98.0) fL MCH 29.7 (27.0-33.0) pg MCHC 34.3 (31.0-35.0) g/dl RDW 14.1 (11.0-16.0) % Plt Count 113 L (160-400) X10*3/uL MPV 10.9 (9.4-12.3) fL Immature Gran % (Auto) 0.0 (0.0-0.4) % Neut % (Auto) 53.1 (45-73) % Lymph % (Auto) 22.8 (20-40) % [place] % (Auto) 18.1 H (2-11) % Eos % (Auto) 4.7 H (0-4) % Baso % (Auto) 1.3 (0-2) % Lymph # (Auto) 0.9 L (1.2-4.9) X10*3/uL [place] # (Auto) 0.7 (0.1-1.2) X10*3/uL Eos # (Auto) 0.2 (0.0-0.4) X10*3/uL Baso # (Auto) 0.1 (0.0-0.2) X10*3/uL Abs Immat Gran (auto) 0.00 (0.00-0.03) X10*3/uL Absolute Neuts (auto) 2.0 (2.0-8.3) x10*3/uL Absolute Nucleated RBC 0.000 (0.0-0.012) X10*3/uL Nucleated RBC % (auto) 0.0 (0.0-0.2) /100WBC PT 19.2 H (10.9-12.4) SEC Whole Blood PT 18.4 H (11.1-13.5) sec INR 1.6 H (0.9-1.1) Whole Blood INR 1.5 H (0.9-1.1) APTT 36.9 H (26.0-36.8) SEC Sodium 137 (135-145) mmol/L Potassium 3.5 (3.3-5.1) mmol/L Chloride 103 (96-108) mmol/L Carbon Dioxide 24 (22-29) mmol/L Anion Gap 14 (12-20) BUN 18 H (9-16) mg/dL Creatinine 0.91 (0.5-1.4) mg/dL Estim Creat Clear Calc 56.4 Estimated GFR > 60 POC Glucose 96 (60-115) mg/dL Random Glucose 95 (60-115) mg/dL Calcium 8.1 L D (8.4-10.2) mg/dL Troponin I High Sens 9.7 D (<3.5-17.0) ng/L Urine Color Yellow Urine Appearance Clear Urine pH 6.5 (5.0-9.0) Ur Specific [place] 1.020 (1.005-1.025) Urine Protein Negative (Neg-Trace) mg/dL Urine Glucose (UA) Negative (Negative) mg/dL Urine Ketones Negative (Negative) mg/dL Urine Blood Negative (Negative) Urine Nitrite Negative (Negative) Ur Leukocyte Esterase Moderate (2+) H (Negative) Urine RBC 0-2 (0-2) /HPF Urine WBC 6-10 H (0-5) /HPF Ur Squamous Epith Cells 0-2 (0-2) /HPF Urine Bacteria None Seen (None Seen) Hyaline Casts 0-2 (0-2) /LPF NIH Stroke Scale Internal: Initial- Upon Arrival Level of Consciousness: Alert Level of Consciousness Questions: Answers both questions correctly Level of Consciousness Commands: Performs both tasks correctly Best Gaze: Normal Visual: No visual loss Facial Palsy: Normal Motor Arm (Right): No drift Motor Arm (Left): No drift Motor Leg (Right): No drift Motor Leg (Left): No drift Limb Ataxia: Absent Sensory: Normal Best Language: No aphasia Dysarthia: Normal Extinction and Inattention: No abnormality Score: 0 Discharge Plan Discharge Clinical Impression: Urinary tract infection Patient Disposition: Admitted As Inpatient Interventions: Admission Worksheet (ED) Last Done: 09/12/24 19:51 Discharge Date/Time: 09/12/24 20:47
--- NOTE | 2024-09-13 10:24 | P.PNIM_ITS ---
Subjective Subjective Date of Service: 09/13/24 Interval History: seen and evaluated this morning feels better overall reports tremors in her hands reported chest discomfort overnight; EKG w no acute findings No other events Review of Systems Review of Systems: Yes all other systems are reviewed and are negative Physical Exam 2 Vital Signs: Vital Signs: Last Vital Signs Temp 98.4 F 09/13/24 07:34 Pulse 72 09/13/24 08:15 Resp 18 09/13/24 07:34 BP 124/69 09/13/24 08:15 Pulse Ox 97 09/13/24 08:15 O2 Del Method Room Air 09/13/24 07:34 BMI result Body Mass Index 37.9 Const: Other: Constitutional : Awake, interactive, not in distress Neck : Normal inspection, Supple Cardiovascular : irregular irregular, no JVP, no lower extremity edema Respiratory : good bilateral air entry, no crackles, wheezes or rhonchi Gastrointestinal: soft, lax, Normal bowel sounds, Non tender Skin : Warm, Dry Neurological : Alert & oriented x3, No focal deficit, action tremors Objective Data Active Medications Acetaminophen (Acetaminophen 325 Mg Tablet) 650 mg PO Q6H PRN PRN Reason: Pain, Mild (Pain Scale 1-3), fever or headache Last Admin: 09/13/24 08:32 Dose: 650 mg Documented By: BARBRA Aspirin (Aspirin Enteric Coated 81 Mg Tablet.Dr) 81 mg PO DAILY [facility] Last Admin: 09/13/24 08:32 Dose: 81 mg Documented By: BARBRA Carbamazepine (Carbamazepine 100 Mg Tab.Chew) 100 mg PO TID [facility] Last Admin: 09/13/24 08:32 Dose: 100 mg Documented By: BARBRA Ceftriaxone Sodium (Ceftriaxone Sodium 1 Gm Vial) 1 gm IVPUSH Q24H [facility] Metoprolol Tartrate (Metoprolol Tartrate 12.5 Mg Halftab) 12.5 mg PO BID [facility]; Protocol Last Admin: 09/13/24 08:31 Dose: 12.5 mg Documented By: BARBRA Ondansetron HCl (Ondansetron Hcl 4 Mg/2 Ml Vial) 4 mg IVPUSH Q8H PRN PRN Reason: Nausea and Vomiting Quetiapine Fumarate (Quetiapine Fumarate 50 Mg Tablet) 50 mg PO BEDTIME PRN PRN Reason: Insomnia Last Admin: 09/12/24 23:22 Dose: 50 mg Documented By: SHERI Rivaroxaban (Rivaroxaban 20 Mg Tablet) 20 mg PO DAILY@1700 [facility] Last Admin: 09/12/24 22:03 Dose: 20 mg Documented By: SHERI Temazepam (Temazepam 15 Mg Capsule) 15 mg PO BEDTIME PRN PRN Reason: Insomnia Last Admin: 09/12/24 23:01 Dose: 15 mg Documented By: SHERI Labs 09/12/24 14:23 09/13/24 07:34 Labs: Laboratory Results - last 24 hr 09/12/24 09/12/24 09/12/24 14:02 14:23 15:03 MCV 86.7 MCH 29.7 MCHC 34.3 RDW 14.1 Plt Count 113 L MPV 10.9 Immature Gran % (Auto) 0.0 Neut % (Auto) 53.1 Lymph % (Auto) 22.8 [place] % (Auto) 18.1 H Eos % (Auto) 4.7 H Baso % (Auto) 1.3 Lymph # (Auto) 0.9 L [place] # (Auto) 0.7 Eos # (Auto) 0.2 Baso # (Auto) 0.1 Abs Immat Gran (auto) 0.00 Absolute Neuts (auto) 2.0 Absolute Nucleated RBC 0.000 Nucleated RBC % (auto) 0.0 PT 19.2 H Whole Blood PT 18.4 H INR 1.6 H Whole Blood INR 1.5 H APTT 36.9 H Anion Gap 14 Estim Creat Clear Calc 56.4 Estimated GFR > 60 POC Glucose 96 Random Glucose 95 Calcium 8.1 L D Troponin I High Sens 9.7 D Urine Color Yellow Urine Appearance Clear Urine pH 6.5 Ur Specific [place] 1.020 Urine Protein Negative Urine Glucose (UA) Negative Urine Ketones Negative Urine Blood Negative Urine Nitrite Negative Ur Leukocyte Esterase Moderate (2+) H Urine RBC 0-2 Urine WBC 6-10 H Ur Squamous Epith Cells 0-2 Urine Bacteria None Seen Hyaline Casts 0-2 09/13/24 07:34 MCV MCH MCHC RDW Plt Count MPV Immature Gran % (Auto) Neut % (Auto) Lymph % (Auto) [place] % (Auto) Eos % (Auto) Baso % (Auto) Lymph # (Auto) [place] # (Auto) Eos # (Auto) Baso # (Auto) Abs Immat Gran (auto) Absolute Neuts (auto) Absolute Nucleated RBC Nucleated RBC % (auto) PT Whole Blood PT INR Whole Blood INR APTT Anion Gap 13 Estim Creat Clear Calc 59.7 Estimated GFR > 60 POC Glucose Random Glucose 92 Calcium 8.1 L Troponin I High Sens 12.6 Urine Color Urine Appearance Urine pH Ur Specific [place] Urine Protein Urine Glucose (UA) Urine Ketones Urine Blood Urine Nitrite Ur Leukocyte Esterase Urine RBC Urine WBC Ur Squamous Epith Cells Urine Bacteria Hyaline Casts Assessment and Plan (1) Postural hypotension: Status: Acute (2) Diplopia: Status: Acute (3) Tremor: Status: Acute Plan A 68 years old lady with PMH of 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 Dizziness 2/2 orthostatic hypotension Likely multifactorial with decrease PO intake, weight loss and polypharmacy CT , CTA negative for any acute findings bolus of fluids Hold lasix and Flexiril Decrease Carbamazepine, Seroquel Monitor BP Action tremors Likely withdrawal from reducing doses of Seroquel and Carbamazepine To reduce doses not more than 20% for now. Adjustments made Carbamazepine reduced to 150 tid Seroquel to 150 mg bedtime Neuro to evaluate no other events Diplopia post eye surgery 6 months ago, following with opth CTA negative for any acute findings Fall 2/2 dizziness PT evaluation UTI pending cultures continue Ceftriaxone Persistant Afib Xarelto, Metoprolol DVT PPx Xarelto The patient will likely need overnight hospital stay pending resolution of postural changes and treatment of urine infection pending neuro eval Quality Stroke Does the patient have a stroke diagnosis?: No VTE Prior VTE?: No VTE Risk Level:: Medical - moderate - high VTE Device Contraindication: Treatment Not Indicated VTE Drug Contraindication: N/A - Med Ordered
--- NOTE | 2024-09-13 10:48 | MHC.CM.PN ---
IMM 09/13/24, Pt lives alone, she is independent, no home health services. For DME, she uses a walker. HCP is on file, names her son: Gunnar. She has used STR and VNA services in the past in [place] where she used to live, following surgery. PT rec. STR, referral choices discussed with pt., referrals out. PCP confirmed: Dr. Mcgowan. DCP: STR via BLS, CM to follow and assist with DC plan.
[2024-09-13] MEDS: QUEtiapine Fumarate 25 MG TABLET PO (11:18)
[2024-09-13 14:05] LABS: Carbamazepine Tegretol 8.1 mcg/mL (5.0-12.0)
[2024-09-13] MEDS: carBAMazepine 100 MG TAB.CHEW 150 MG PO ×2 (15:18→20:33)
[2024-09-13] MEDS: cefTRIAXone sodium 1 GM VIAL IVPUSH (16:59)
[2024-09-13] MEDS: Rivaroxaban 20 MG TABLET PO (16:59)
[2024-09-13] MEDS: QUEtiapine Fumarate 50 MG TABLET 150 MG PO (20:33)
[2024-09-13] MEDS: Temazepam 15 MG CAPSULE PO (23:00)
[2024-09-14] VITALS (9 sets, daily range): BP systolic 86–136; BP diastolic 58–80; PULSE 61–103; RESP 14–20; TEMP 36–37.1; O2SAT 95–98
--- NOTE | 2024-09-14 09:15 | PC.NURSE ---
This RN went to flush patient's IV, IV leaking and no blood return. Multiple attempts for new IV access including ultrasound guided with no success. notified there is no IV access at this time.
[2024-09-14] MEDS: Ondansetron ODT 8 MG TAB.RAPDIS TRANSLINGU (09:42)
[2024-09-14] MEDS: carBAMazepine 100 MG TAB.CHEW 150 MG PO ×3 (10:24→21:39)
[2024-09-14] MEDS: Aspirin Enteric Coated 81 MG TABLET.DR PO (10:24)
[2024-09-14] MEDS: Midodrine HCl 5 MG TABLET PO (10:24)
--- NOTE | 2024-09-14 13:08 | P.PNIM_ITS ---
Subjective Subjective Date of Service: 09/14/24 Interval History: seen and evaluated this morning feels better overall less tremors in her hands still having positive orthostatic findings No other events Review of Systems Review of Systems: Yes all other systems are reviewed and are negative Physical Exam 2 Vital Signs: Vital Signs: Last Vital Signs Temp 97.8 F 09/14/24 11:54 Pulse 78 09/14/24 11:54 Resp 19 09/14/24 11:54 BP 119/75 09/14/24 11:54 Pulse Ox 98 09/14/24 11:54 O2 Del Method Room Air 09/14/24 11:54 BMI result Body Mass Index 37.9 Const: Other: Constitutional : Awake, interactive, not in distress Neck : Normal inspection, Supple Cardiovascular : irregular irregular, no JVP, no lower extremity edema Respiratory : good bilateral air entry, no crackles, wheezes or rhonchi Gastrointestinal: soft, lax, Normal bowel sounds, Non tender Skin : Warm, Dry Neurological : Alert & oriented x3, No focal deficit, action tremors Objective Data Active Medications Acetaminophen (Acetaminophen 325 Mg Tablet) 650 mg PO Q6H PRN PRN Reason: Pain, Mild (Pain Scale 1-3), fever or headache Last Admin: 09/13/24 08:32 Dose: 650 mg Documented By: BARBRA Aspirin (Aspirin Enteric Coated 81 Mg Tablet.) 81 mg PO DAILY [facility] Last Admin: 09/14/24 10:24 Dose: 81 mg Documented By: BARBRA Carbamazepine (Carbamazepine 100 Mg Tab.Chew) 150 mg PO TID [facility] Last Admin: 09/14/24 10:24 Dose: 150 mg Documented By: BARBRA Ceftriaxone Sodium (Ceftriaxone Sodium 1 Gm Vial) 1 gm IVPUSH Q24H [facility] Last Admin: 09/13/24 16:59 Dose: 1 gm Documented By: BARBRA Metoprolol Tartrate (Metoprolol Tartrate 12.5 Mg Halftab) 12.5 mg PO BID [facility]; Protocol Last Admin: 09/14/24 10:37 Dose: Not Given Documented By: BARBRA Non-Admin Reason: Physician Approved Midodrine (Midodrine Hcl 2.5 Mg Tablet) 2.5 mg PO TID [facility] Ondansetron HCl (Ondansetron Hcl 4 Mg/2 Ml Vial) 4 mg IVPUSH Q8H PRN PRN Reason: Nausea and Vomiting Ondansetron HCl (Ondansetron Odt 8 Mg Tab.Rapdis) 8 mg TRANSLINGU Q8H PRN PRN Reason: Nausea and Vomiting Last Admin: 09/14/24 09:42 Dose: 8 mg Documented By: BARBRA Quetiapine Fumarate (Quetiapine Fumarate 50 Mg Tablet) 150 mg PO BEDTIME [facility] Last Admin: 09/13/24 20:33 Dose: 150 mg Documented By: EYAL Rivaroxaban (Rivaroxaban 20 Mg Tablet) 20 mg PO DAILY@1700 [facility] Last Admin: 09/13/24 16:59 Dose: 20 mg Documented By: BARBRA Temazepam (Temazepam 15 Mg Capsule) 15 mg PO BEDTIME PRN PRN Reason: Insomnia Last Admin: 09/13/24 23:00 Dose: 15 mg Documented By: EYAL Labs 09/12/24 14:23 09/13/24 07:34 Labs: Laboratory Results - last 24 hr 09/13/24 13:00 Carbamazepine 8.1 Microbiology Microbiology Results: Microbiology 09/12/24 15:03 Urine Culture - Final Urine clean catch - Clean Catch Midstream Assessment and Plan (1) Tremor: Status: Acute (2) Diplopia: Status: Acute (3) Postural hypotension: Status: Acute (4) Urinary tract infection: Status: Acute Plan A 68 years old lady with PMH of 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 Dizziness and fall 2/2 orthostatic hypotension Likely multifactorial with decrease PO intake, physical deconditioning, weight loss and polypharmacy CT , CTA negative for any acute findings Hold lasix and Flexiril Decrease Carbamazepine, Seroquel start Midodrine Monitor BP PT rec STR placement Action tremors Likely withdrawal from reducing doses of Seroquel and Carbamazepine To reduce doses not more than 20% for now. Adjustments made Carbamazepine reduced to 150 tid Seroquel to 150 mg bedtime Neuro input appreciated, Probably peripheral vestibular disorder contributing to multifactorial gait disorder. 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 It could improve in few months or might require ophthalmological correction. Fall 2/2 dizziness PT evaluation UTI pending cultures continue Ceftriaxone Persistant Afib Xarelto, Metoprolol DVT PPx Xarelto The patient will likely need overnight hospital stay pending resolution of postural changes and treatment of urine infection pending cultures and safe discharge plan Quality Stroke Does the patient have a stroke diagnosis?: No VTE Prior VTE?: No VTE Risk Level:: Medical - moderate - high VTE Device Contraindication: Treatment Not Indicated VTE Drug Contraindication: N/A - Med Ordered
--- NOTE | 2024-09-14 13:30 | MHC.CM.PN ---
Per rounds, pt. is not ready for DC, she requires treatment for UTI and resolution of postural changes. DCP is for her to go to [facility] at [facility], anticipate DC on 09/15/24.
[2024-09-14] MEDS: Midodrine HCl 2.5 MG TABLET PO ×2 (16:02→21:40)
[2024-09-14] MEDS: Rivaroxaban 20 MG TABLET PO (16:02)
[2024-09-14] MEDS: cefuroxime axetiL 250 MG TABLET PO (21:39)
[2024-09-14] MEDS: QUEtiapine Fumarate 50 MG TABLET 150 MG PO (21:39)
[2024-09-14] MEDS: Temazepam 15 MG CAPSULE PO (23:03)
[2024-09-15] VITALS (12 sets, daily range): BP systolic 97–141; BP diastolic 53–70; PULSE 79–104; RESP 14–20; TEMP 36.1–37.1; O2SAT 94–97
[2024-09-15] MEDS: Midodrine HCl 2.5 MG TABLET PO (09:28)
[2024-09-15] MEDS: Aspirin Enteric Coated 81 MG TABLET.DR PO (09:28)
[2024-09-15] MEDS: cefuroxime axetiL 250 MG TABLET PO ×2 (09:28→22:13)
[2024-09-15] MEDS: carBAMazepine 100 MG TAB.CHEW 150 MG PO ×3 (09:29→22:13)
--- NOTE | 2024-09-15 11:19 | HO.PM.IMPN ---
Subjective Subjective Date of Service: 09/15/24 Interval History: seen and evaluated this morning feels better overall less tremors in her hands still having positive orthostatic findings with dizziness No other events Review of Systems Review of Systems: Yes all other systems are reviewed and are negative Physical Exam Vital Signs: Vital Signs: Last Vital Signs Temp 97.8 F 09/15/24 07:47 Pulse 104 H 09/15/24 08:23 Resp 18 09/15/24 08:23 BP 97/53 L 09/15/24 08:23 Pulse Ox 96 09/15/24 08:23 O2 Del Method Room Air 09/15/24 08:23 BMI result Body Mass Index 37.9 Const: Other: Constitutional : Awake, interactive, not in distress Neck : Normal inspection, Supple Cardiovascular : irregular irregular, no JVP, no lower extremity edema Respiratory : good bilateral air entry, no crackles, wheezes or rhonchi Gastrointestinal: soft, lax, Normal bowel sounds, Non tender Skin : Warm, Dry Neurological : Alert & oriented x3, No focal deficit, action tremors Objective Data Active Medications Acetaminophen (Acetaminophen 325 Mg Tablet) 650 mg PO Q6H PRN PRN Reason: Pain, Mild (Pain Scale 1-3), fever or headache Last Admin: 09/13/24 08:32 Dose: 650 mg Documented By: BARBRA Aspirin (Aspirin Enteric Coated 81 Mg Tablet.) 81 mg PO DAILY [facility] Last Admin: 09/15/24 09:28 Dose: 81 mg Documented By: AYDE Carbamazepine (Carbamazepine 100 Mg Tab.Chew) 150 mg PO TID [facility] Last Admin: 09/15/24 09:29 Dose: 150 mg Documented By: AYDE Cefuroxime Axetil (Cefuroxime Axetil 250 Mg Tablet) 250 mg PO Q12H [facility] Last Admin: 09/15/24 09:28 Dose: 250 mg Documented By: AYDE Fludrocortisone Acetate (Fludrocortisone Acetate 0.1 Mg Tablet) 0.1 mg PO QAM [facility] Lactated Ringer's (Lr) 1,000 mls @ 100 mls/hr IVCONT .Q10H [facility] Stop: 09/16/24 11:00 Metoprolol Tartrate (Metoprolol Tartrate 12.5 Mg Halftab) 12.5 mg PO BID [facility]; Protocol Last Admin: 09/14/24 10:37 Dose: Not Given Documented By: BARBRA Non-Admin Reason: Physician Approved Midodrine (Midodrine Hcl 5 Mg Tablet) 5 mg PO TID [facility] Ondansetron HCl (Ondansetron Hcl 4 Mg/2 Ml Vial) 4 mg IVPUSH Q8H PRN PRN Reason: Nausea and Vomiting Ondansetron HCl (Ondansetron Odt 8 Mg Tab.Rapdis) 8 mg TRANSLINGU Q8H PRN PRN Reason: Nausea and Vomiting Last Admin: 09/14/24 09:42 Dose: 8 mg Documented By: BARBRA Quetiapine Fumarate (Quetiapine Fumarate 100 Mg Tablet) 100 mg PO BEDTIME [facility] Rivaroxaban (Rivaroxaban 20 Mg Tablet) 20 mg PO DAILY@1700 [facility] Last Admin: 09/14/24 16:02 Dose: 20 mg Documented By: BARBRA Temazepam (Temazepam 15 Mg Capsule) 15 mg PO BEDTIME PRN PRN Reason: Insomnia Last Admin: 09/14/24 23:03 Dose: 15 mg Documented By: ROULA Labs 09/12/24 14:23 09/13/24 07:34 Microbiology Microbiology Results: Microbiology 09/12/24 15:03 Urine Culture - Final Urine clean catch - Clean Catch Midstream Assessment and Plan (1) Tremor: Status: Acute (2) Diplopia: Status: Acute (3) Postural hypotension: Status: Acute (4) Urinary tract infection: Status: Acute Plan A 68 years old lady with PMH of 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 Dizziness and fall 2/2 orthostatic hypotension Likely multifactorial with decrease PO intake, physical deconditioning, weight loss and polypharmacy CT , CTA negative for any acute findings Hold lasix and Flexiril Decrease Carbamazepine, Seroquel start Midodrine 5 miguel angel tid and Fludricortisone IVF today Monitor BP PT rec STR placement Action tremors Likely withdrawal from reducing doses of Seroquel and Carbamazepine To reduce doses not more than 20% for now. Adjustments made Carbamazepine reduced to 150 tid Seroquel to 100 mg bedtime Neuro input appreciated, Probably peripheral vestibular disorder contributing to multifactorial gait disorder. 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 It could improve in few months or might require ophthalmological correction. Fall 2/2 dizziness PT evaluation UTI negative cultures changed to Ceftin Persistant Afib Xarelto, Metoprolol DVT PPx Xarelto The patient will likely need overnight hospital stay pending resolution of postural changes and treatment of urine infection pending cultures and safe discharge plan Quality Stroke Does the patient have a stroke diagnosis?: No VTE Prior VTE?: No VTE Risk Level:: Medical - moderate - high VTE Device Contraindication: Treatment Not Indicated VTE Drug Contraindication: N/A - Med Ordered
[2024-09-15] MEDS: Midodrine HCl 5 MG TABLET PO ×2 (14:15→22:13)
[2024-09-15] MEDS: Fludrocortisone Acetate 0.1 MG TABLET PO (14:15)
[2024-09-15] MEDS: Metoprolol Tartrate 12.5 MG HALFTAB PO ×2 (14:52→22:13)
[2024-09-15] MEDS: Rivaroxaban 20 MG TABLET PO (17:37)
[2024-09-15] MEDS: Acetaminophen 325 MG TABLET 650 MG PO (19:59)
--- NOTE | 2024-09-15 20:20 | ECG_ITS ---
Test Reason : CP Blood Pressure : / mmHG Vent. Rate : 083 BPM Atrial Rate : 000 BPM P-R Int : 000 ms QRS Dur : 112 ms QT Int : 428 ms P-R-T Axes : 000 -66 008 degrees QTc Int : 502 ms Atrial fibrillation Incomplete right bundle branch block Left anterior fascicular block Minimal voltage criteria for LVH, may be normal variant ( Shiv product ) Prolonged QT Abnormal ECG No significant changes when compared with the previous EKG of 13 sep 2024 Referred By: Zoraida Graves Electronically Signed By:JACEK JOYA
[2024-09-15] MEDS: QUEtiapine Fumarate 100 MG TABLET PO (22:14)
[2024-09-15] MEDS: Temazepam 15 MG CAPSULE PO (23:01)
[2024-09-15] MEDS: Lactated Ringers 1,000 ML 100 ML IVCONT (23:03)
[2024-09-16 01:54] LABS: Troponin-I High Sensitivity 63.9 ng/L (<3.5-17.0)
[2024-09-16 04:00] VITALS: BP 115/72; PULSE 66; RESP 15; TEMP 36.5; O2SAT 97
[2024-09-16 07:47] VITALS: BP 122/66; PULSE 92; RESP 18; TEMP 36.6; O2SAT 97
[2024-09-16 09:33] LABS: Troponin-I High Sensitivity 28.9 ng/L (<3.5-17.0)
[2024-09-16] MEDS: cefuroxime axetiL 250 MG TABLET PO (09:53)
[2024-09-16] MEDS: Midodrine HCl 5 MG TABLET PO (09:54)
[2024-09-16] MEDS: carBAMazepine 100 MG TAB.CHEW 150 MG PO (09:54)
[2024-09-16] MEDS: Metoprolol Tartrate 12.5 MG HALFTAB PO (09:54)
[2024-09-16] MEDS: Aspirin Enteric Coated 81 MG TABLET.DR PO (09:54)
[2024-09-16] MEDS: Lactated Ringers 1,000 ML 100 ML IVCONT (10:01)
--- NOTE | 2024-09-16 10:45 | PM.DS ---
DS: Providers Provider Date of Service: 09/16/24 Date of admission: 09/12/24 17:45 Date of discharge: 09/16/24 Primary care physician: Molly Mcgowan MD Consults: 09/13/24 08:20 Consult to Neurology Routine Consulting Provider: [facility] Reason for consultation: jerky movements, unsteadiness, double vision DS: Diagnosis Discharge Diagnosis (1) Tremor: Status: Acute (2) Diplopia: Status: Acute (3) Postural hypotension: Status: Acute (4) Urinary tract infection: Status: Acute DS: Summary Hospital Course Hospital Course: Admission note HPI A 68 years old lady with PMH of 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 The patient had decreased activity and lost significant amount of weight over the last year (40-50 lbs) per her son. She reports double vision since she had cataract surgery months ago. For the last few days she has been feeling more unsteady and dizzy upon standing up and going to the bathroom. Fell at home with no injuries on Tuesday. No chest pain, palpitations, SOB, nausea, vomiting, diarrhea or urinary symptoms. In ED found to have UTI. Positive orthostatic vitals. CT and CTA were negative for any acute findings. Admitted for further evaluation and treatment. Hospital course The patient was admitted for evaluation of Dizziness and fall secondary to orthostatic hypotension in state of decrease PO intake, physical deconditioning, weight loss and polypharmacy. Head CT , CTA negative for any acute findings. Held lasix and Flexiril. Decreased Carbamazepine, Seroquel with addition of Midodrine 5 miguel angel tid and Fludricortisone with IV fluids. Improved significantly and was able to ambulate with no reported lightheadedness or fall. To hold Fludricortisone on discharge as we are discontiuing Lasix. For Action tremors , Likely withdrawal from reducing doses of Seroquel and Carbamazepine. Neuro input appreciated, Probably peripheral vestibular disorder contributing to multifactorial gait disorder. stable, not worsening. better after improving her Diplopia, post eye surgery 6 months ago, following with opth. CTA negative for any acute findings. 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 It could improve in few months or might require ophthalmological correction. Fall secondary to dizziness, PT evaluation recommended short term rehab. UTI, negative cultures. Finished 3 days of antibiotics. Discharge plan Encourage high Protein diet and drinking more liquids, add supplement Decrease Seroquel to 100 mg Decrease Carbamazepine to 150 mg tid Start Midodrine 5 mg daily for now, to be lowered as tolerated in future Stop Lasix and monitor body weight for fluid retention Increase physical activity as tolerated Time Attestation Discharge Coordination Time (in mins): 36 Quality: Safe Use of Opioids Does Pt have an Active Cancer Diagnosis on the Problem List?: No Quality: Stroke Does the patient have a stroke diagnosis?: No Physical Exam Vital Signs: Vital Signs: Last Vital Signs Temp 97.8 F 09/16/24 07:47 Pulse 92 09/16/24 07:47 Resp 18 09/16/24 07:47 BP 122/66 09/16/24 07:47 Pulse Ox 97 09/16/24 07:47 O2 Del Method Room Air 09/16/24 07:47 BMI result Body Mass Index 37.9 Const: Other: Constitutional : Awake, interactive, not in distress Neck : Normal inspection, Supple Cardiovascular : irregular irregular, no JVP, no lower extremity edema Respiratory : good bilateral air entry, no crackles, wheezes or rhonchi Gastrointestinal: soft, lax, Normal bowel sounds, Non tender Skin : Warm, Dry Neurological : Alert & oriented x3, No focal deficit, action tremors DS: Data Data Completed and Pending Completed studies during hospitalization [Text1]: Procedures Insertion of Infusion Device into Right Basilic Vein, Percutaneous Approach (02/28/24) Labs on day of discharge: Laboratory Results - last 24 hr 09/15/24 09/16/24 09/16/24 21:13 01:17 EST 08:35 Troponin I High Sens 77.0 H* D 63.9 H* 28.[address] scan - head: Radiologist's impression: ITS Impressions Head CT 09/12/24 14:01 IMPRESSION: No acute intracranial hemorrhage. Small vessel occlusive disease. Superimposed acute nonhemorrhagic ischemia/stroke cannot be entirely excluded. This critical result was discussed with at hours on . It was ascertained that the content and urgency of the report was understood at the time of direct communication. Electronically signed by: Filipe Berumen MD 09/12/2024 02:20 PM EDT RP Chest X-Ray 09/12/24 14:02 IMPRESSION: Chronic interstitial lung disease. Electronically signed by: Filipe Berumen MD 09/12/2024 02:47 PM EDT RP Head/Neck CTA 09/12/24 14:14 IMPRESSION: CTA head demonstrates no large vessel occlusion, saccular aneurysm, or dissection. CTA neck demonstrates 55% focal stenosis of the right cervical ICA and less than 50% focal stenosis of the left cervical ICA. There is also mild short segment stenosis of the distal left common carotid artery. Electronically signed by: Rose Marie Potts MD 09/12/2024 02:57 PM EDT RP Discharge Plan Discharge Anticipated Discharge Date/Time: 09/16/24 10:34 Patient Disposition: Xfer SNF Discharge Diagnosis: Postural hypotension UTI Referrals: Molly Mcgowan MD [Primary Care Provider] - 1 Week Discharge Medications: New midodrine 5 mg Tablet 5 mg PO TID Qty: 90 0RF quetiapine 100 mg Tablet 100 mg PO BEDTIME Qty: 90 0RF ondansetron 8 mg Tablet,Disintegrating 8 mg translingual Q8H PRN (Reason: Nausea And Vomiting) Qty: 20 0RF carbamazepine 100 mg Tablet,Chewable 150 mg PO TID Qty: 150 0RF Continued nystatin 100,000 unit/gram powder 1 appl topical DAILY PRN (Reason: rash) Qty: 30 0RF famotidine 40 mg tablet 40 mg PO DAILY Qty: 90 1RF temazepam 15 mg capsule 15 mg PO BEDTIME Xarelto 20 mg tablet 20 mg PO DAILY@1700 Rx Instructions: must administer with evening meal acetaminophen 325 mg Tablet 650 mg PO Q8H PRN (Reason: ARTHRITIS PAIN) aspirin 81 mg Tablet,Delayed Release (Dr/Ec) 81 mg PO DAILY Probiotic 3 billion cell capsule 3,000 mmu cells PO DAILY@0800 Rx Instructions: administer with a meal multivitamin Tablet 1 tab PO DAILY albuterol sulfate 2.5 mg /3 mL (0.083 %) Solution For Nebulization 2.5 mg INHALATION BID cholecalciferol (vitamin D3) 50 mcg (2,000 unit) capsule 50 mcg PO DAILY Qty: 90 3RF atorvastatin 80 mg tablet 80 mg PO DAILY Qty: 90 3RF ammonium lactate 12 % cream 1 appl topical BID PRN (Reason: Rash) Rx Instructions: APPLIED TO FEET citalopram 40 mg tablet 40 mg PO DAILY metoprolol tartrate 25 mg tablet 12.5 mg PO BID 90 Days Qty: 90 3RF cholestyramine (with sugar) 4 gram powder in packet 4 g PO DAILY Qty: 60 3RF Rx Instructions: administer w/meal; avoid other meds within 1hr before or 4-6hr after dose Discontinued furosemide 20 mg tablet 20 mg PO DAILY Qty: 30 5RF carbamazepine 200 mg tablet 200 mg PO TID Qty: 90 1RF quetiapine 200 mg Tablet Extended Release 24 Hr 200 mg PO BEDTIME Discharge Orders: Discharge Order (Routine); Ordered 09/16/24 Ordered By: Gopi Abbott Diet: Advance to usual diet Activity on Discharge: As tolerated Stand Alone Forms: Patient Portal Discharge page Print Language: Slovenian Care Plan Goals: Encourage high Protein diet and drinking more liquids, add supplement Decrease Seroquel to 100 mg Decrease Carbamazepine to 150 mg tid Start Midodrine 5 mg daily for now, to be lowered as tolerated in future Stop Lasix and monitor body weight for fluid retention Increase physical activity as tolerated Health Concerns: Postural hypotension weight loss Plan of Treatment: Stop lasix, decrease Seorquel and Carbamazepine , Start Midodrine Increase physical activity Assessment: as above
[2024-09-16 11:46] VITALS: BP 117/70; PULSE 66; RESP 18; TEMP 36.7; O2SAT 98
--- NOTE | 2024-09-16 12:42 | MHC.CM.PN ---
PT CLEARED TO DC TO [facility] FOR STR TODAY BLS TRANSPORT ARRANGED VIA [facility] FOR 1400
--- NOTE | 2024-09-18 11:41 | P.CDIM_ITS ---
PROVIDER RESPONSE TEXT: To clarify, the appropriate diagnosis supported by the clinical indicators: Obesity: 2 QUERY TEXT: PHYSICIAN'S DOCUMENTATION REQUEST Date of Query: 09/13/2024 11:47 AM EDT Patient Name: Deidre To Admit Date: 09/12/2024 Dear Gopi Abbott MD, A review of the medical record indicates additional documentation may be needed. Please review below and update the documentation accordingly. Clinical Indicators: Height: 5ft Weight: 88kg BMI: 37.9 Other Clinical Notes Supporting Significance of the BMI: Nursing notes Height and Weight: Obese class II If possible, please provide an associated diagnosis related to the abnormal BMI, such as: Overweight Obesity class I, 2, 3 Obesity Due to other cause Specify the other cause Severe or Morbid Obesity Other (explain) Clinically unable to determine (explain) Thank you, Elle Rasmussen, CCS, CDIS Use of terms such as suspected, likely, concern for, or probable (associated with a specific diagnosi s that is being evaluated, monitored, or treated as if it exists) are acceptable and can be coded in the inpatient se tting, when documented at the time of discharge. Please use your independent medical judgment in providing your response. THIS QUERY IS PART OF THE PERMANENT MEDICAL RECORD
== END 2024-09-16 15:05 | disposition skilled nursing facility (03) | DRG 312 ==
LOC: HO.ED 16:40 → HO.EDOVER 18:24 → HO.IMC 18:58
PROVIDERS: Internal Medicine; Admitting Provider Student in an Organized Health Care Education/Training Program; Emergency Provider Emergency Medicine Emergency Medical Services; PCP Internal Medicine; Visit Provider Student in an Organized Health Care Education/Training Program
DX: I95.1 Orthostatic hypotension (principal); N39.0 Urinary tract infection, site not specified; K90.829 Short bowel syndrome, unspecified; I48.19 Other persistent atrial fibrillation; F19.939 Other psychoactive substance use, unspecified with withdrawal, unspecified; I25.10 Atherosclerotic heart disease of native coronary artery without angina pectoris; H53.2 Diplopia; E66.812 Obesity, class 2; Z68.37 Body mass index [BMI] 37.0-37.9, adult; Z71.3 Dietary counseling and surveillance; T50.915A Adverse effect of multiple unspecified drugs, medicaments and biological substances, initial encounter; Z87.891 Personal history of nicotine dependence; Z85.038 Personal history of other malignant neoplasm of large intestine; Z98.0 Intestinal bypass and anastomosis status; Z79.01 Long term (current) use of anticoagulants; Z79.82 Long term (current) use of aspirin; Z79.899 Other long term (current) drug therapy
CPT/HCPCS: 36415; 69209; 70450; 70496; 70498; 71045; 80048; 80156; 81001; 82947; 84484; 85025; 85610; 85730; 87086; 93005; 97116; 97162; 99212; 99285; J0696; J7120; Q9967

== ENCOUNTER → 2024-09-12 14:01 | Outpatient (BNV) | payer MEDICARE, SELFPAY | PROVIDERS: Admitting Provider Student in an Organized Health Care Education/Training Program; Emergency Provider Emergency Medicine Emergency Medical Services; PCP Internal Medicine; Visit Provider Internal Medicine | DX: I48.92 Unspecified atrial flutter (principal); I45.10 Unspecified right bundle-branch block; I44.4 Left anterior fascicular block; R94.31 Abnormal electrocardiogram [ECG] [EKG] | CPT/HCPCS: 93010 ==

== ENCOUNTER → 2024-09-12 14:02 | Outpatient (BNV) | payer MEDICARE, SELFPAY | PROVIDERS: Emergency Provider Emergency Medicine Emergency Medical Services; PCP Internal Medicine; Visit Provider Radiology Diagnostic Radiology | DX: I65.23 Occlusion and stenosis of bilateral carotid arteries (principal) | CPT/HCPCS: 70450; 71045 ==

== ENCOUNTER → 2024-09-12 14:45 | Outpatient (BNV) | payer MEDICARE, SELFPAY | PROVIDERS: Emergency Provider Emergency Medicine Emergency Medical Services; PCP Internal Medicine; Visit Provider Student in an Organized Health Care Education/Training Program | DX: R25.1 Tremor, unspecified (principal); H53.2 Diplopia; I95.1 Orthostatic hypotension; N39.0 Urinary tract infection, site not specified | CPT/HCPCS: 99222; 99231; 99232; 99239 ==

== ENCOUNTER 2024-09-12 17:45 | Outpatient (BNV) | payer MEDICARE, SELFPAY | END 2024-09-13 07:36 | PROVIDERS: Admitting Provider Student in an Organized Health Care Education/Training Program; Emergency Provider Emergency Medicine Emergency Medical Services; PCP Internal Medicine; Visit Provider Internal Medicine | DX: R07.9 Chest pain, unspecified (principal); I45.10 Unspecified right bundle-branch block; I44.4 Left anterior fascicular block; R94.31 Abnormal electrocardiogram [ECG] [EKG] | CPT/HCPCS: 93010 ==

== ENCOUNTER 2024-09-12 17:45 | Outpatient (BNV) | payer MEDICARE, SELFPAY | END 2024-09-15 20:20 | PROVIDERS: Admitting Provider Student in an Organized Health Care Education/Training Program; Emergency Provider Emergency Medicine Emergency Medical Services; PCP Internal Medicine; Visit Provider Internal Medicine | DX: R07.9 Chest pain, unspecified (principal); I45.19 Other right bundle-branch block; R94.31 Abnormal electrocardiogram [ECG] [EKG] | CPT/HCPCS: 93010 ==

== ENCOUNTER → 2024-09-12 17:45 | Outpatient (BNV) | payer MEDICARE, SELFPAY | PROVIDERS: Admitting Provider Student in an Organized Health Care Education/Training Program; Emergency Provider Emergency Medicine Emergency Medical Services; PCP Internal Medicine; Visit Provider Psychiatry & Neurology Neurology | DX: R42 Dizziness and giddiness (principal); H53.2 Diplopia; Z91.81 History of falling | CPT/HCPCS: 99222 ==

== ENCOUNTER 2024-09-26 11:37 | Outpatient (AMB) | payer MEDICARE, SELFPAY ==
--- NOTE | 2024-09-26 11:44 | A.OFFVIS_ITS ---
Vital Signs 09/26/24 11:46 Height 5 ft Weight 190 lb 14.725 oz BMI 37.3 BP 109/65 Blood Pressure Location Rt brachial Position Sitting Pulse 104 H Intake Visit Reasons: 2 week follow up r/s from 09/11 Intake Note: Patient in office today in follow up CC: Patient admitted to [facility] hospital on 09/12 after going to the ER with c/o with generalized malaise weakness and discharged on 09/16 to [facility]. Patient c/o a lot of nausea. 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 Takes imodium 4 a day but then will have cic for a day and takes metamucil.......other samuel severe diarrhea since partial colectomy. She was seen in our ER Dr. Christy. She has GERD well controlled on famotidine. She was dx'ed with afib and is new on pedro - Dr. De Paz. 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 - Short bowel syndrome, unspecified Category: Medical Orders: Orders Colonoscopy - GI Use Only Today Z01.818 - Encounter for other preprocedural examination Medications: New doxycycline hyclate 100 mg PO BID 14 days 28 tabs 0RF peg 3350-electrolytes 236-22.74-6.74 -5.86 gram (Golytely) until fecal effluent is clear; do not exceed a total volume of 2,000 mL 240 mL PO Q10M 1 day 4,000 mL 0RF Z12.11 - Encounter for screening for malignant neoplasm of colon [id number] 36,000-114,000- 180,000 unit (Creon) administer with meals and/or snacks 2 caps PO BID 120 caps 6RF K90.829 - Short bowel syndrome, unspecified cholestyramine (with sugar) 4 gram administer w/meal; avoid other meds within 1hr before or 4-6hr after dose 4 grams PO DAILY 60 ea 3RF COLONOSCOPY BIOPSY CORRESPONDENCE On 08/29/24 @ 08:45 Jayde Morejon Wrote To Jose Francisco Emanuel Hi - Patient had sent a health portal message that I had responded to this morning and I will be mailing the patient assistance program erik to see if she qualifies. Creon is covered under her benefits, problem is Digestive Enzymes tend to be on a higher tier with higher oop cost so alternatives would be the same On 08/29/24 @ 08:43 Jose Francisco Emanuel Wrote To Jayde Morejon Ryan can you please look into this. On 08/28/24 @ 17:39 Sharmila Tirado Wrote To Jose Francisco Emanuel Please do a PA or look into her insurance to see if there is an alternative such as [employer] etc. On 08/28/24 @ 16:04 Stephy Paul Wrote To Sharmila iTrado (2) Patient LVM on MA line stating that her Creon is going to be a $250 copay - unfortunately she is unable to do that at this time and would like to know if there is an alternative that can be sent? TODAY'S VISIT She fell and was hospitalized here, and then went to [facility]. Since she was fed better food while here instead of frozen dinners, her stool have been more solid. Her son now is buying her foods from [employer] to re [employer] and her stool are more formed (but they were not at [facility] The cholestyramine would not dissolve for her and she found it unpalatable. She paid for the creon and is taking it. Will continue this for now. With all of this she has not been contacted for colonoscopy. WIll re send procedure request. ROV 8 weeks. She has had nausea since the cholestyramine, doing better with zofran qd and I will refill and we will eval if nausea is better after stop the cholestyramine. [facility] Medical History (Updated 12/05/24 @ 00:01 by Tung Anderson) Partial small bowel obstruction C. difficile colitis Tremor Diplopia History of small bowel obstruction Hx of colon cancer, stage III Bipolar 1 disorder CAD (coronary artery disease) Persistent atrial fibrillation Essential hypertension Hyperlipidemia Personal history of nicotine dependence Unsteady gait Thrombocytopenia Anemia Cervical radiculopathy due to degenerative joint disease of spine History of radius fracture Degenerative disc disease, cervical Acquired deafness of left ear Surgical History Status post coronary artery bypass graft History of coronary artery bypass graft x 2 (~2018) History of cardiac catheterization History of partial colectomy (~2015) History of reversal of ileostomy History of resection of small bowel (~2020) History of laparoscopic adjustable gastric banding (~2004) History of laparoscopic cholecystectomy (~2003) History of parotidectomy (~2014) History of cervical discectomy (~2013) History of surgery on right wrist History of colonoscopy History of esophagogastroduodenoscopy (EGD) History of appendectomy (~2003) History of tonsillectomy History of bunionectomy Family History Sister Substance use disorder Insulin dependent type 1 diabetes mellitus Mother Colon cancer Breast cancer Coronary artery disease High cholesterol Essential hypertension Father Heart disease Brother Heart disease Social History Household Members: None Housing: Apartment Do you presently have visiting nurse or other home services: No Unable to assess alcohol history related to: Unable to respond Alcohol intake: never Patient Tobacco Use Status: Former Tobacco user Tobacco use type: Cigarette Years Smoked: (former smoker - onset 30yo, 1ppd x 33yrs, 30pyh, quit 11/2018) e-Cigarette/Vaping Use: Never Used Second Hand Smoke Exposure: No Advance Directives Date on File: 03/02/24 service: No Current occupational status: retired Cognitive needs: No Hearing needs: No Vision needs: Yes Review of Systems Const Denies fatigue, Denies fever(s), Denies night sweats, Denies poor appetite and Denies weight loss ENT Reports Normal hearing present, Denies dental pain, Denies dysphagia, Denies hearing loss, Denies mouth pain, Denies odynophagia, Denies throat swelling, Denies tongue swelling and Reports other (Dentition adequate) Card Reports no additional complaints Resp Reports no additional complaints GI Details: Denies abdominal pain, Denies melena, Denies bloating, Denies hematochezia, Denies constipation, Denies GI cramping, Denies dysphagia, Denies excessive flatus, Denies early satiety, Reports heartburn, Reports diarrhea, Reports nausea, Denies odynophagia, Denies vomiting and Denies hematemesis Skin/Breast Denies pruritus, Denies lesions, Denies rash and Denies jaundice Neuro Reports Normal hearing present and Denies Abnormal speech present Endo Denies fatigue Aller/Immun Denies throat swelling and Denies tongue swelling Physical Exam Vital Signs: Last Vital Signs Pulse 104 H 09/26/24 11:46 BP 109/65 09/26/24 11:46 BMI result Body Mass Index 37.3 Const General: cooperative, no acute distress, well developed and well groomed Nutritional Appearance: well nourished and obese Orientation/consciousness: oriented to person, oriented to place and oriented to time Limitations: No language barrier and ambulation with walker HEENT Head: Yes normocephalic and Yes atraumatic Eyes General: appearance normal, both eyes and all related structures Pupils: Equal, round and reactive pupils present Neck Neck: Yes normal visual inspection and Yes no lymphadenopathy Thyroid: Thyroid normal Resp Effort & Inspection: normal respiratory effort and able to speak in complete sentences Auscultation: clear to auscultation bilaterally Cardio Rate: regular rate Rhythm: regular rhythm Heart sounds: Normal, physiologic split S2 sound present Peripheral pulses: radial pulses present and posterior tibial pulses present GI Inspection: No distended, No Abdominal panniculus present and Yes obesity Palpation (GI): Soft to palpation, nontender, no guarding, not rigid and No hepatosplenomegaly present Percussion: Yes normal to percussion Auscultation: normal bowel sounds Rectal Exam - Female: deferred Skin General skin exam: no rashes or lesions noted, turgor normal, skin not dry, no jaundice, No spider nevi and no striae Rashes: no rashes Nails: normal Neuro General: oriented to person, oriented to place and oriented to time Cranial nerves: Yes Equal, round and reactive pupils present and Yes Normal hearing present Speech: No Abnormal speech present Extrem General: Yes normal to inspection, No clubbing, No cyanosis and No edema Psych Appearance: grossly normal and well kempt Mental Status: mental status grossly normal Speech and movement: Normal speech and movement present Affect: normal affect Attitude: cooperative Thought process: Normal thought process present and not confabulating Thought content: Normal thought content present Insight: Limited insight present (Psych) Judgement: Limited judgement present (Psych) Assessment & Plan Assessment & Plan (1) Short bowel syndrome: Code(s): K90.829 - Short bowel syndrome, unspecified Category: Medical Qualifiers: Short bowel syndrome type: unspecified whether colon in continuity Qualified Code(s): K90.829 - Short bowel syndrome, unspecified (2) History of small bowel obstruction: Code(s): Z87.19 - Personal history of other diseases of the digestive system Category: Medical (3) GERD (gastroesophageal reflux disease): Comment: Patient is currently taking famotidine 40 mg p.o. daily. Code(s): K21.9 - Gastro-esophageal reflux disease without esophagitis Category: Medical Qualifiers: Esophagitis presence: esophagitis presence not specified Qualified Code(s): K21.9 - Gastro-esophageal reflux disease without esophagitis (4) Nausea and vomiting: Code(s): R11.2 - Nausea with vomiting, unspecified Category: Medical Plan She fell and was hospitalized here, and then went to [facility]. Since she was fed better food while here instead of frozen dinners, her stool have been more solid. Her son now is buying her foods from [employer] to [facility] and her stool are more formed (but they were not at [facility].). The cholestyramine would not dissolve for her and she found it unpalatable. She paid for the creon and is taking it. Will continue this for now. With all of this she has not been contacted for colonoscopy. WIll re send procedure request. OUSMANE 8 weeks. She has had nausea since the cholestyramine, doing better with zofran qd and I will refill and we will eval if nausea is better after stop the cholestyramine. COLONOSCOPY BIOPSY Medications: Refilled ondansetron 8 mg translingual Q8H PRN 60 tabs 6RF Nausea And Vomiting R11.2 - Nausea with vomiting, unspecified Coding Level of Care Code Est Pt Level 3 (66609) Diagnoses Short bowel syndrome, unspecified whether colon in continuity K90.829 Short bowel syndrome type: unspecified whether colon in continuity History of small bowel obstruction Z87.19 Gastroesophageal reflux disease, unspecified whether esophagitis present K21.9 Esophagitis presence: esophagitis presence not specified Nausea and vomiting R11.2
[2024-09-26 11:46] VITALS: BP 109/65; PULSE 104; BMI 37.3
== END 2024-09-26 12:32 | disposition home or self-care (01) ==
PROVIDERS: PCP Internal Medicine; Visit Provider Nurse Practitioner
DX: K90.829 Short bowel syndrome, unspecified (principal); Z87.19 Personal history of other diseases of the digestive system; K21.9 Gastro-esophageal reflux disease without esophagitis; R11.2 Nausea with vomiting, unspecified
CPT/HCPCS: 99213

== ENCOUNTER → 2024-09-26 11:37 | Outpatient (BNVA) | payer MEDICARE, SELFPAY | PROVIDERS: PCP Internal Medicine; Visit Provider Nurse Practitioner | DX: K90.829 Short bowel syndrome, unspecified (principal); K21.9 Gastro-esophageal reflux disease without esophagitis; R11.2 Nausea with vomiting, unspecified; Z87.19 Personal history of other diseases of the digestive system | CPT/HCPCS: 99212 ==

== ENCOUNTER 2024-10-02 18:08 | Inpatient (IN) | payer MEDICARE, SELFPAY ==
--- NOTE | ~2024-10-02 | CT_ITS ---
EXAMINATION: CT ABDOMEN AND PELVIS WITH CONTRAST CLINICAL INFORMATION: Abdominal pain shortness of breath. COMPARISON: Chest radiograph 09/12/2024. CT abdomen pelvis 05/15/2024. TECHNIQUE: Multidetector volumetric images were obtained from the superior aspect of the liver through the pubic symphysis following administration 85 mL of Omnipaque 350 intravenous contrast. Sagittal and coronal reformatted images were obtained on the technologist's workstation. Oral contrast: No This CT examination was performed using dose optimization techniques as appropriate, variously including the following: *Automated exposure control *Adjustment of mA and/or kV according to patient size (this includes techniques or standardized protocols for targeted exams where dose is matched to indication/reason for exam; i.e. extremities or head) *Use of iterative reconstruction technique DLP: 769 mGy-cm FINDINGS: LUNG BASES: The visualized lung bases are unremarkable. Partial visualization of dense mitral annulus calcification LIVER, GALLBLADDER, AND BILIARY TREE: The liver demonstrates subtle diffuse contour irregularity. The liver is normal in size. No focal parenchymal lesions of the liver Cholecystectomy clips PANCREAS: Unremarkable. SPLEEN: Unremarkable. ADRENAL GLANDS: Unremarkable. KIDNEYS AND URETERS: The kidneys are normal in size, shape, and attenuation. No hydronephrosis, hydroureter, or calculi seen. No perinephric stranding. BLADDER: Unremarkable. GASTROINTESTINAL TRACT: Mild concentric mural thickening of the cecum and ascending colon is noted with findings extending contiguously into the proximal transverse colon. Small bowel anastomotic sutures are noted. Dilated small bowel segments measuring up to 3.8 cm in diameter are present proximal to the sutures. Equalization of small bowel intestinal contents is noted. An adjustable laparoscopic gastric band is noted. Stomach demonstrates moderate fluid distention. A mild-moderate quantity of diffuse lesions scattered free intraperitoneal fluid is noted (4 Hounsfield units). No free intraperitoneal gas identified. No twisting of the small bowel mesentery noted. Grossly normal intraluminal opacification of the visualized components of the superior mesenteric artery. ABDOMINAL WALL: A ventral midline incisional scar is noted. No abdominal wall intestinal hernias identified. LYMPH NODES: Normal. VASCULAR: Diffuse calcific atherosclerosis PELVIC VISCERA: The uterus is atrophic. No adnexal lesions noted. OSSEOUS STRUCTURES: No suspicious skeletal abnormalities identified. CT/CT abdomen pelvis w IV con IMPRESSION: *Findings suspicious for small bowel obstruction. Proximal small bowel is abnormally dilated up to 3.8 cm in diameter and equalization of the small bowel succus entericus is present consistent with abnormal small bowel motility. A transition point between dilated and nondilated small bowel is noted within the midline lower abdominal quadrants in the region of small bowel anastomotic sutures. No intestinal hernia is noted. No evidence of small bowel volvulus. The obstruction may be secondary to otherwise occult adhesions or dysfunction in the region of the small bowel anastomosis. No free intraperitoneal gas identified. A mild-moderate quantity of low density free intraperitoneal fluid is present increased in extent compared to findings present on the comparison study of 05/15/2024. *Mild concentric contiguous mural thickening of the cecum, ascending colon and hepatic flexure of the colon. These findings may represent colitis. The distribution of findings is suspicious for possible C. difficile colitis. *Borderline contour irregularity of the liver. These findings could represent early CT evidence of hepatic disease and cirrhosis. No definitive evidence of cirrhosis. As clinically indicated, consider further evaluation with hepatic ultrasound. *Adjustable gastric lap band in situ. Electronically signed by: Osiel Landrum MD 10/03/2024 12:04 AM [facility]
--- NOTE | ~2024-10-02 | XR_ITS ---
EXAMINATION: XR CHEST CLINICAL INFORMATION: NGT COMPARISON: X-ray dated September 12, 2024 TECHNIQUE: Frontal view of the chest was obtained. FINDINGS: Multiple wires overlapping the cardiomediastinal silhouette at the gastroesophageal junction. There is an NG tube coiled in the epigastric region just below and at the level of the gastric banding. Pulmonary reticular pattern. No gross consolidation pleural effusion or pneumothorax. Sternal wires. Metallic plate lower cervical spine. Multilevel thoracic spondylosis. Degenerative changes in the left shoulder. XR/XR chest 1V IMPRESSION: The NG tube appears to be at the gastroesophageal junction. Electronically signed by: Filipe Berumen MD 10/04/2024 07:15 AM [facility]
[2024-10-02 18:13] VITALS: BP 138/72; PULSE 100; O2SAT 96
[2024-10-02 18:16] VITALS: BP 124/82; PULSE 115; RESP 19; TEMP 36.6; O2SAT 95; BMI 37.0
--- NOTE | 2024-10-02 18:32 | ECG_ITS ---
Test Reason : CP Blood Pressure : / mmHG Vent. Rate : 109 BPM Atrial Rate : 000 BPM P-R Int : 000 ms QRS Dur : 108 ms QT Int : 382 ms P-R-T Axes : 000 -68 004 degrees QTc Int : 514 ms Atrial fibrillation with rapid ventricular response Left anterior fascicular block Minimal voltage criteria for LVH, may be normal variant ( Dulac product ) Cannot rule out Anterior infarct , age undetermined Abnormal ECG When compared with ECG of 15-SEP-2024 20:20, No significant change was found Referred By: Olivia Barrientos Electronically Signed By:SHELIA DELGADILLO MD
--- NOTE | 2024-10-02 18:35 | ED_ITS ---
HPI - Abdominal Pain General Chief Complaint: Abdominal Pain Stated Complaint: low abd pain Time Seen by Provider: 10/02/24 18:14 History of Present Illness HPI narrative: Patient is a 68-year-old female with a history of colon cancer status post resection in the past. History of small-bowel obstruction history of short bowel syndrome history of carotid stenosis history of AFib on Xarelto presented today with having increasing abdominal pain in the lower abdomen along with no bowel movement for the last 2 days. Is passing small amount of gas. No fever no chills. No diaphoresis. Also history of previous lap band. Related Data Home Medications ?Medication ?Instructions ?Recorded ?Confirmed acetaminophen 325 mg tablet 650 mg PO Q8H PRN ARTHRITIS PAIN 01/09/24 09/12/24 aspirin 81 mg tablet,delayed 81 mg PO DAILY 01/09/24 09/12/24 release citalopram 40 mg tablet 40 mg PO DAILY 01/09/24 09/12/24 ammonium lactate 12 % topical cream 1 appl topical BID PRN Rash 02/06/24 09/12/24 albuterol sulfate 2.5 mg/3 mL 2.5 mg inhalation BID 02/28/24 09/12/24 (0.083 %) solution for nebulization multivitamin 1 tab PO DAILY 02/28/24 09/12/24 lactobacillus combination no.4 3 3,000 mmu cells PO DAILY@0800 04/10/24 09/12/24 billion cell capsule (Probiotic) temazepam 15 mg capsule 15 mg PO BEDTIME 05/16/24 09/12/24 Previous Rx's ?Medication ?Instructions ?Recorded metoprolol tartrate 25 mg tablet 12.5 mg (1/2 x 25 mg) PO BID 90 04/11/24 days #90 tabs atorvastatin 80 mg tablet 80 mg PO DAILY #90 tabs 05/07/24 cholecalciferol (vitamin D3) 50 50 mcg PO DAILY #90 caps 05/07/24 mcg (2,000 unit) capsule nystatin 100,000 unit/gram topical 1 appl topical DAILY PRN rash #30 05/28/24 powder grams famotidine 40 mg tablet 40 mg PO DAILY #90 tabs 07/31/24 cholestyramine (with sugar) 4 gram 4 g PO DAILY #60 ea 08/28/24 powder for susp in a packet carbamazepine 100 mg chewable 150 mg (1.5 x 100 mg) PO TID #150 09/16/24 tablet tabs midodrine 5 mg tablet 5 mg PO TID #90 tabs 09/16/24 quetiapine 100 mg tablet 100 mg PO BEDTIME #90 tabs 09/16/24 ondansetron 8 mg disintegrating 8 mg translingual Q8H PRN Nausea 09/26/24 tablet And Vomiting #60 tabs rivaroxaban 20 mg tablet (Xarelto) 20 mg PO DAILY@1700 #90 tabs 09/27/24 Allergies Allergy/AdvReac Type Severity Reaction Status Date / Time No Known Allergies Allergy Verified 10/02/24 18:20 Review of Systems Review of Systems Positive abdominal pain Yes all other systems are reviewed and are negative PMFSH Past Medical History Attestation statement: The following information was validated with the patient. Medical History Tremor Diplopia History of small bowel obstruction Hx of colon cancer, stage III Bipolar 1 disorder CAD (coronary artery disease) Persistent atrial fibrillation Essential hypertension Hyperlipidemia Personal history of nicotine dependence Unsteady gait Thrombocytopenia Anemia Cervical radiculopathy due to degenerative joint disease of spine History of radius fracture Degenerative disc disease, cervical Acquired deafness of left ear Surgical History Status post coronary artery bypass graft History of coronary artery bypass graft x 2 (~2018) History of cardiac catheterization History of partial colectomy (~2015) History of reversal of ileostomy History of resection of small bowel (~2020) History of laparoscopic adjustable gastric banding (~2004) History of laparoscopic cholecystectomy (~2003) History of parotidectomy (~2014) History of cervical discectomy (~2013) History of surgery on right wrist History of colonoscopy History of esophagogastroduodenoscopy (EGD) History of appendectomy (~2003) History of tonsillectomy History of bunionectomy Family History Family History Sister Substance use disorder Insulin dependent type 1 diabetes mellitus Mother Colon cancer Breast cancer Coronary artery disease High cholesterol Essential hypertension Father Heart disease Brother Heart disease Social History Social History Household Members: None Housing: Apartment Do you presently have visiting nurse or other home services: No Unable to assess alcohol history related to: Unable to respond Alcohol intake: current Alcohol intake frequency: holidays/special occasions only Patient Tobacco Use Status: Former Tobacco user Tobacco use type: Cigarette Years Smoked: (former smoker - onset 30yo, 1ppd x 33yrs, 30pyh, quit 11/2018) e-Cigarette/Vaping Use: Never Used Second Hand Smoke Exposure: No Advance Directives: Yes Advance Directives on File: Yes Advance Directives Date on File: 03/02/24 service: No Current occupational status: retired Cognitive needs: No Hearing needs: No Vision needs: Yes Physical Exam ED Vital Signs: Vital Signs - 24 hr 10/02/24 18:16 10/02/24 19:41 10/02/24 23:07 Temperature 98 F 98.0 F 98.0 F Pulse Rate 115 H 100 105 H Respiratory Rate 19 13 17 Blood Pressure 124/82 134/82 127/75 Pulse Oximetry 95 97 96 Oxygen Delivery Method Room Air Room Air Room Air BMI result Body Mass Index 37.0 Appearance: Alert. Oriented X3. No acute distress. Eyes: Pupils equal, round and reactive to light. ENT: Pharynx normal. Neck: Normal inspection. Neck supple. No lymph nodes noted. No crepitus CVS: Normal heart rate and rhythm. Pulses normal. Normal S1 and S2 Respiratory: No respiratory distress. Breath sounds normal. No Wheezing. No rales Abdomen: Soft and nontender. No rigidity. No distention. good BS x4 Skin: Skin warm and dry. Normal skin color. Normal skin turgor. Extremities: No lower extremity edema. Neurovascular intact to all extremities. No Lacerations. No Rash Neuro: Oriented X 3. No motor deficit. No sensory deficit. Moving all extermities. No slurred speech Medical Decision Making Medical Decision Making MDM Narrative: Patient presented today with having abdominal pain in the lower abdomen has a history of small-bowel obstruction multiple abdominal surgery in the past history of colon cancer history of lap band. CT scan of the abdomen pelvis done. Consistent with having small bowel obstruction per radiology's interpretation. Case consulted with surgery. Will admit patient for further evaluation. Fairly in stable condition. Patient has a history of being on blood thinners she is on Xarelto for atrial fibrillation. Her white count is normal at this time. Patient is electrolytes showed a normal creatinine. Urine show no gross evidence of infection. Currently in stable condition awaiting admission Differential Diagnosis Differential Diagnoses: The differential diagnosis associated with the presentation includes Small-bowel obstruction, abscess, perforation Admission/Observation Consideration of admission/observation: Escalation of care including admission/observation considered Consult Healthcare Provider Management of the patient was discussed with: Material Handling Technician (Surgeon) Lab Data MDM Lab Attestation statement: I reviewed the patient's lab results. 10/02/24 20:13 10/02/24 20:13 Labs: Lab Results 10/02/24 10/02/24 Range/Units 20:13 23:04 WBC 6.2 (4.8-10.8) X10*3/uL RBC 4.33 (4.20-5.50) X10*6/uL Hgb 13.1 (12.0-16.0) g/dl Hct 37.6 (37.0-47.0) % MCV 86.8 (80.0-98.0) fL MCH 30.3 (27.0-33.0) pg MCHC 34.8 (31.0-35.0) g/dl RDW 14.1 (11.0-16.0) % Plt Count 156 L D (160-400) X10*3/uL MPV 10.4 (9.4-12.3) fL Immature Gran % (Auto) 0.5 H (0.0-0.4) % Neut % (Auto) 70.5 (45-73) % Lymph % (Auto) 11.7 L (20-40) % [place] % (Auto) 15.7 H (2-11) % Eos % (Auto) 1.1 (0-4) % Baso % (Auto) 0.5 (0-2) % Lymph # (Auto) 0.7 L (1.2-4.9) X10*3/uL [place] # (Auto) 1.0 (0.1-1.2) X10*3/uL Eos # (Auto) 0.1 (0.0-0.4) X10*3/uL Baso # (Auto) 0.0 (0.0-0.2) X10*3/uL Abs Immat Gran (auto) 0.03 (0.00-0.03) X10*3/uL Absolute Neuts (auto) 4.4 (2.0-8.3) x10*3/uL Absolute Nucleated RBC 0.000 (0.0-0.012) X10*3/uL Nucleated RBC % (auto) 0.0 (0.0-0.2) /100WBC Sodium 132 L (135-145) mmol/L Potassium 3.7 (3.3-5.1) mmol/L Chloride 102 (96-108) mmol/L Carbon Dioxide 22 (22-29) mmol/L Anion Gap 12 (12-20) BUN 8 L (9-16) mg/dL Creatinine 0.80 (0.5-1.4) mg/dL Estim Creat Clear Calc 65.5 Estimated GFR > 60 Random Glucose 114 (60-115) mg/dL Calcium 8.3 L (8.4-10.2) mg/dL Total Bilirubin 1.1 H (0.0-1.0) mg/dL Direct Bilirubin 0.5 (0.0-0.5) mg/dL AST 66 H (5-31) U/L ALT 30 (0-31) U/L Alkaline Phosphatase 198 H (39-117) U/L Total Protein 7.2 (6.5-8.0) g/dL Albumin 3.4 L (3.5-5.0) g/dL Lipase 22 (8-78) U/L Urine Color Yellow Urine Appearance Clear Urine pH 5.5 (5.0-9.0) Ur Specific [place] >= 1.030 H (1.005-1.025) Urine Protein Negative (Neg-Trace) mg/dL Urine Glucose (UA) Negative (Negative) mg/dL Urine Ketones Negative (Negative) mg/dL Urine Blood Negative (Negative) Urine Nitrite Negative (Negative) Ur Leukocyte Esterase Trace H (Negative) Urine RBC 0-2 (0-2) /HPF Urine WBC 6-10 H (0-5) /HPF Ur Squamous Epith Cells 3-5 (0-2) /HPF Urine Bacteria None Seen (None Seen) Hyaline Casts 0-2 (0-2) /LPF Radiology Impression Discussion of test interpretation with radiology: I have reviewed the radiologist's reading. Independent Historian Clinical information obtained from an independent historian. History obtained from or confirmed by: Friend External Record Review External record reviewed: Inpatient record Chronic Conditions History of bowel obstruction in the past. History of atrial fibrillation on blood thinners Medications Administered Discontinued Medications Generic Name Dose Route Start Last Admin Trade Name Freq PRN Reason Stop Dose Admin Diatrizoate Meglum/Diatrizoate Sod 30 ml 10/02/24 21:31 10/02/24 21:32 Diatrizoate Meglumine, Sodium 30 Ml Solution PO 10/02/24 21:32 30 ml ONCE ONE Administration Hydromorphone HCl 0.5 mg 10/02/24 20:36 10/02/24 20:59 Hydromorphone Hcl 0.5 Mg/0.5 Ml Syringe IVPUSH 10/02/24 20:37 0.5 mg ONCE ONE Administration Protocol Sodium Chloride 1,000 mls @ 999 mls/hr 10/02/24 18:45 10/02/24 18:41 Ns IV 10/02/24 19:45 999 mls/hr .Q1H1M LAURA Administration Iohexol 85 ml 10/02/24 21:32 10/02/24 21:34 Iohexol 350 Mg/Ml 100 Ml Infus..Btl IV 10/02/24 21:33 85 ml ONCE ONE Administration Ondansetron HCl 4 mg 10/02/24 20:34 10/02/24 20:59 Ondansetron Hcl 4 Mg/2 Ml Vial IVPUSH 10/02/24 20:35 4 mg ONCE ONE Administration Discharge Plan Discharge Clinical Impression: Obstruction of small intestine due to peritoneal adhesion Patient Disposition: Admitted As Inpatient Prescriptions: No Action nystatin 100,000 unit/gram powder 1 appl topical DAILY PRN (Reason: rash) Qty: 30 0RF famotidine 40 mg tablet 40 mg PO DAILY Qty: 90 1RF Xarelto 20 mg tablet 20 mg PO DAILY@1700 Qty: 90 1RF Rx Instructions: must administer with evening meal temazepam 15 mg capsule 15 mg PO BEDTIME acetaminophen 325 mg Tablet 650 mg PO Q8H PRN (Reason: ARTHRITIS PAIN) aspirin 81 mg Tablet,Delayed Release (Dr/Ec) 81 mg PO DAILY Probiotic 3 billion cell capsule 3,000 mmu cells PO DAILY@0800 Rx Instructions: administer with a meal multivitamin Tablet 1 tab PO DAILY albuterol sulfate 2.5 mg /3 mL (0.083 %) Solution For Nebulization 2.5 mg INHALATION BID midodrine 5 mg Tablet 5 mg PO TID Qty: 90 0RF quetiapine 100 mg Tablet 100 mg PO BEDTIME Qty: 90 0RF carbamazepine 100 mg Tablet,Chewable 150 mg PO TID Qty: 150 0RF cholecalciferol (vitamin D3) 50 mcg (2,000 unit) capsule 50 mcg PO DAILY Qty: 90 3RF atorvastatin 80 mg tablet 80 mg PO DAILY Qty: 90 3RF ammonium lactate 12 % cream 1 appl topical BID PRN (Reason: Rash) Rx Instructions: APPLIED TO FEET citalopram 40 mg tablet 40 mg PO DAILY metoprolol tartrate 25 mg tablet 12.5 mg PO BID 90 Days Qty: 90 3RF cholestyramine (with sugar) 4 gram powder in packet 4 g PO DAILY Qty: 60 3RF Rx Instructions: administer w/meal; avoid other meds within 1hr before or 4-6hr after dose ondansetron 8 mg tablet,disintegrating 8 mg translingual Q8H PRN (Reason: Nausea And Vomiting) Qty: 60 6RF Print Language: Pashto
[2024-10-02] MEDS: 0.9 % Sodium Chloride 1,000 ML 999 ML IV (18:41)
[2024-10-02 19:41] VITALS: BP 134/82; PULSE 100; RESP 13; TEMP 36.7; O2SAT 97
[2024-10-02 20:18] LABS: MANUAL DIFF FLAG NO
[2024-10-02 20:19] LABS: Basophils Percent Auto 0.5 % (0-2); Eosinophils Absolute Auto 0.1 X10*3/uL (0.0-0.4); Eosinophils Percent Auto 1.1 % (0-4); Hematocrit 37.6 % (37.0-47.0); Hemoglobin 13.1 g/dl (12.0-16.0); Imm Gran Abs Auto 0.03 X10*3/uL (0.00-0.03); Imm Gran Pct Auto 0.5 % (0.0-0.4); Lymphocytes Absolute Auto 0.7 X10*3/uL (1.2-4.9); Lymphocytes Percent Auto 11.7 % (20-40); Mean Corpuscular HGB Conc 34.8 g/dl (31.0-35.0); Mean Corpuscular Hemoglobin 30.3 pg (27.0-33.0); Mean Corpuscular Volume 86.8 fL (80.0-98.0); Mean Platelet Volume 10.4 fL (9.4-12.3); Monocytes Percent Auto 15.7 % (2-11); Neutrophils Absolute Auto 4.4 x10*3/uL (2.0-8.3); Neutrophils Percent Auto 70.5 % (45-73); Platelet Count 156 X10*3/uL (160-400); Red Blood Count 4.33 X10*6/uL (4.20-5.50); Red Cell Distribution Width 14.1 % (11.0-16.0); White Blood Count 6.2 X10*3/uL (4.8-10.8)
[2024-10-02 20:35] LABS: Alanine Aminotransferase 30 U/L (0-31); Albumin Level 3.4 g/dL (3.5-5.0); Alkaline Phosphatase 198 U/L (39-117); Anion Gap 12 (12-20); Aspartate Amino Transferase 66 U/L (5-31); Bilirubin Direct 0.5 mg/dL (0.0-0.5); Bilirubin Total 1.1 mg/dL (0.0-1.0); Blood Urea Nitrogen 8 mg/dL (9-16); Calcium 8.3 mg/dL (8.4-10.2); Carbon Dioxide 22 mmol/L (22-29); Chloride 102 mmol/L (96-108); Creatinine Clr Calc Pharmacy 65.5; Estimated Glomerular Filt Rate > 60; Glucose Random 114 mg/dL (60-115); Lipase 22 U/L (8-78); Potassium 3.7 mmol/L (3.3-5.1); Sodium 132 mmol/L (135-145); Total Protein 7.2 g/dL (6.5-8.0)
[2024-10-02] MEDS: HYDROmorphone HCl 0.5 MG/0.5 ML SYRINGE IVPUSH (20:59)
[2024-10-02] MEDS: ondansetron HCL 4 MG/2 ML VIAL IVPUSH (20:59)
[2024-10-02] MEDS: Diatrizoate Meglumine, Sodium 30 ML SOLUTION PO (21:32)
[2024-10-02] MEDS: iohexoL 350 MG/ML 100 ML INFUS..BTL 85 ML IV (21:34)
[2024-10-02 23:07] VITALS: BP 127/75; PULSE 105; RESP 17; TEMP 36.7; O2SAT 96
[2024-10-02 23:16] LABS: Appearance Urine Clear; Color Urine Yellow; Glucose Urine UA Negative (Negative); Leukocyte Esterase Urine Trace (Negative); Nitrite Urine Negative (Negative); PH 5.5 (5.0-9.0); Specific Gravity - Urine >= 1.030 (1.005-1.025); UMIC TRIGGER UACC YES; Urine Blood Negative (Negative); Urine Ketones Negative (Negative); Urine Protein Negative (Neg-Trace)
[2024-10-02 23:18] LABS: Bacteria Urine None Seen (None Seen); Hyaline Casts Urine 0-2 /LPF (0-2); RBC Urine 0-2 /HPF (0-2); UACC Culture Trigger YES
[2024-10-03] MEDS: Morphine Sulfate 2 MG/ML CARTRIDGE IVPUSH ×3 (02:48→15:35)
--- NOTE | 2024-10-03 02:51 | PC.NURSE ---
pt c/o 05/23 abdominal px. medicated with PRN medication
[2024-10-03 03:45] VITALS: BP 145/82; PULSE 109; RESP 18; TEMP 36.3; O2SAT 95
[2024-10-03] MEDS: 0.9 % Sodium Chloride Flush 3 ML SYRINGE IVFLUSH (07:30)
[2024-10-03 07:36] VITALS: BP 125/86; PULSE 105; RESP 16; TEMP 36.8; O2SAT 96
--- NOTE | 2024-10-03 07:56 | P.HPGS_ITS ---
History of Present Illness History of Present Illness Date of Service: 10/09/24 Chief complaint: nausea Narrative: Deidre To is a 68 year old femalewith multiple previous abdominal surgeries, admitted this last night for abdominal pain and nausea. She says that this started about 3 days ago. She describes the pain as diffuse. She has had been admitted here before for similar problems woth note of small bowel obstruction. She used to live in [place] but has moved here to be closer to her son who now takes care of her. She says that she has had maybe 7 admissions in the hospital for small bowel obstruction since her surgeries. She says that she has NG tube each time and this normally resolves after a few days She has a history of sigmoid resection for colon cancer in 2017 done in [place]. She says she had chemotherapy after that. She had an ileostomy at that time as well and she had this reversed eventually. She has a history of cholecystectomy. She has a gastric band in place. She has a history of coronary disease and had 2 vessel bypass 5 years ago. She currently states that her abdominal pain is still present and comes in waves. She describes dry heaving. She says she has noted small amount of flatus last night. She is on Xarelto for atrial fibrillation. I will consult the Hospitalist service. Review of Systems Constitutional: Constitutional: Denies chills and Denies fever(s) Cardiovascular: Cardiovascular: Denies chest pain, Denies dyspnea and Denies dyspnea on exertion Respiratory: Respiratory: Denies cough, Denies dyspnea and Denies dyspnea on exertion Gastrointestinal: Gastrointestinal: Denies hematochezia and Denies change in bowel habits Genitourinary: Genitourinary: Denies hematuria Musculoskeletal: Musculoskeletal: Denies back pain and Denies limited range of motion Neurologic: Denies focal weakness, Reports memory loss and Denies convulsions Psychiatric: Psychiatric: Denies depression, Reports memory loss and Denies mood swings [facility] Past Medical History Medical History C. difficile colitis Tremor Diplopia History of small bowel obstruction Hx of colon cancer, stage III Bipolar 1 disorder CAD (coronary artery disease) Persistent atrial fibrillation Essential hypertension Hyperlipidemia Personal history of nicotine dependence Unsteady gait Thrombocytopenia Anemia Cervical radiculopathy due to degenerative joint disease of spine History of radius fracture Degenerative disc disease, cervical Acquired deafness of left ear Family History Family History Sister Substance use disorder Insulin dependent type 1 diabetes mellitus Mother Colon cancer Breast cancer Coronary artery disease High cholesterol Essential hypertension Father Heart disease Brother Heart disease Surgical History Surgical History Status post coronary artery bypass graft History of coronary artery bypass graft x 2 (~2018) History of cardiac catheterization History of partial colectomy (~2015) History of reversal of ileostomy History of resection of small bowel (~2020) History of laparoscopic adjustable gastric banding (~2004) History of laparoscopic cholecystectomy (~2003) History of parotidectomy (~2014) History of cervical discectomy (~2013) History of surgery on right wrist History of colonoscopy History of esophagogastroduodenoscopy (EGD) History of appendectomy (~2003) History of tonsillectomy History of bunionectomy Social History Social History Household Members: None Housing: Apartment Do you presently have visiting nurse or other home services: No Unable to assess alcohol history related to: Unable to respond Alcohol intake: never Patient Tobacco Use Status: Former Tobacco user Tobacco use type: Cigarette Years Smoked: (former smoker - onset 30yo, 1ppd x 33yrs, 30pyh, quit 11/2018) e-Cigarette/Vaping Use: Never Used Second Hand Smoke Exposure: No Advance Directives Date on File: 03/02/24 service: No Current occupational status: retired Cognitive needs: No Hearing needs: No Vision needs: Yes Meds Allergies Allergy/AdvReac Type Severity Reaction Status Date / Time No Known Allergies Allergy Verified 10/02/24 18:20 Active Medications: Current Medications Acetaminophen (Acetaminophen 325 Mg Tablet) 650 mg PO Q6H PRN PRN Reason: Pain, Mild (Pain Scale 1-3), fever or headache Albuterol Sulfate (Albuterol Sulfate 90 Mcg 8 Gm Inhaler) 1 puff INHALE RQ6H PRN PRN Reason: Wheezing Calcium Carbonate (Calcium Carbonate 750 Mg Tab.Chew) 750 mg PO Q4H PRN PRN Reason: Heartburn Lactated Ringer's (Lr) 1,000 mls @ 100 mls/hr IVCONT .Q10H [facility] Magnesium Hydroxide (Milk Of Magnesia 30 Ml Oral.Susp) 30 ml PO DAILY PRN PRN Reason: Constipation Melatonin (Melatonin 3 Mg Tablet) 6 mg PO BEDTIME PRN PRN Reason: Insomnia Morphine Sulfate (Morphine Sulfate 2 Mg/Ml Cartridge) 2 mg IVPUSH Q3H PRN; Protocol PRN Reason: Pain, Severe (Pain Scale 7-10) Ondansetron HCl (Ondansetron Hcl 4 Mg/2 Ml Vial) 4 mg IVPUSH Q6H PRN PRN Reason: Nausea and Vomiting Sodium Chloride (0.9 % Sodium Chloride Flush 3 Ml Syringe) [facility] Last Admin: 10/03/24 07:30 Dose: 3 ml Home Medications ?Medication ?Instructions ?Recorded ?Confirmed ?Last Taken ?Type acetaminophen 325 mg tablet 650 mg PO Q8H PRN ARTHRITIS PAIN 01/09/24 10/03/24 05/15/24 History aspirin 81 mg tablet,delayed 81 mg PO DAILY 01/09/24 10/03/24 10/02/24 History release citalopram 40 mg tablet 40 mg PO DAILY 01/09/24 10/03/24 10/02/24 History ammonium lactate 12 % topical cream 1 appl topical BID PRN Rash 02/06/24 10/03/24 05/15/24 History multivitamin 1 tab PO DAILY 02/28/24 10/03/24 10/02/24 History lactobacillus combination no.4 3 3,000 mmu cells PO DAILY@0800 04/10/24 10/03/24 10/02/24 History billion cell capsule (Probiotic) temazepam 15 mg capsule 15 mg PO BEDTIME 05/16/24 10/03/24 09/30/24 History albuterol sulfate 2.5 mg/3 mL 2.5 mg inhalation Q6H PRN dyspnea 10/03/24 10/03/24 Unknown History (0.083 %) solution for nebulization [id number] 2 cap PO BID 10/03/24 10/03/24 10/02/24 History 36,000-114,000-180,000 unit capsule,delay rel (Creon) midodrine 5 mg tablet 5 mg PO TID PRN Low BP 10/03/24 10/03/24 Unknown History Physical Exam Vital Signs: Vital Signs: Last Vital Signs Temp 98.2 F 10/03/24 07:36 Pulse 105 H 10/03/24 07:36 Resp 16 10/03/24 07:36 BP 125/86 10/03/24 07:36 Pulse Ox 96 10/03/24 07:36 O2 Del Method Room Air 10/03/24 07:36 BMI result Body Mass Index 37.0 Const: Other: Morbidly obese General: no acute distress Orientation/consciousness: patient oriented x3 Neck: Neck: Yes no lymphadenopathy Resp: Auscultation: clear to auscultation bilaterally Cardio: Rhythm: regular rhythm GI: Palpation (GI): Soft to palpation, Tenderness to palpation present (GI) (some diffuse tenderness), no guarding and not rigid Neuro: General: patient oriented x3 Results Results Labs: Short CBC 10/02/24 Range/Units 20:13 WBC 6.2 (4.8-10.8) X10*3/uL Hgb 13.1 (12.0-16.0) g/dl Hct 37.6 (37.0-47.0) % Plt Count 156 L D (160-400) X10*3/uL BMP 10/02/24 20:13 Sodium 132 L Potassium 3.7 Chloride 102 Carbon Dioxide 22 BUN 8 L Creatinine 0.80 Calcium 8.3 L Liver Function 10/02/24 Range/Units 20:13 Total Bilirubin 1.1 H (0.0-1.0) mg/dL Direct Bilirubin 0.5 (0.0-0.5) mg/dL AST 66 H (5-31) U/L ALT 30 (0-31) U/L Alkaline Phosphatase 198 H (39-117) U/L Albumin 3.4 L (3.5-5.0) g/dL Urine 10/02/24 Range/Units 23:04 Urine Color Yellow Urine Appearance Clear Urine pH 5.5 (5.0-9.0) Ur Specific [place] >= 1.030 H (1.005-1.025) Urine Protein Negative (Neg-Trace) mg/dL Urine Glucose (UA) Negative (Negative) mg/dL Abdomen CT scan report/results: report reviewed and image reviewed CT scan - pelvis: report reviewed and image reviewed Additional studies: Laboratory Results WBC 6.2 X10*3/uL (4.8-10.8) 10/02/24 20:13 RBC 4.33 X10*6/uL (4.20-5.50) 10/02/24 20:13 Hgb 13.1 g/dl (12.0-16.0) 10/02/24 20:13 Hct 37.6 % (37.0-47.0) 10/02/24 20:13 MCV 86.8 fL (80.0-98.0) 10/02/24 20:13 MCH 30.3 pg (27.0-33.0) 10/02/24 20:13 MCHC 34.8 g/dl (31.0-35.0) 10/02/24 20:13 RDW 14.1 % (11.0-16.0) 10/02/24 20:13 Plt Count 156 X10*3/uL (160-400) L D 10/02/24 20:13 MPV 10.4 fL (9.4-12.3) 10/02/24 20:13 Immature Gran % (Auto) 0.5 % (0.0-0.4) H 10/02/24 20:13 Neut % (Auto) 70.5 % (45-73) 10/02/24 20:13 Lymph % (Auto) 11.7 % (20-40) L 10/02/24 20:13 [place] % (Auto) 15.7 % (2-11) H 10/02/24 20:13 Eos % (Auto) 1.1 % (0-4) 10/02/24 20:13 Baso % (Auto) 0.5 % (0-2) 10/02/24 20:13 Lymph # (Auto) 0.7 X10*3/uL (1.2-4.9) L 10/02/24 20:13 [place] # (Auto) 1.0 X10*3/uL (0.1-1.2) 10/02/24 20:13 Eos # (Auto) 0.1 X10*3/uL (0.0-0.4) 10/02/24 20:13 Baso # (Auto) 0.0 X10*3/uL (0.0-0.2) 10/02/24 20:13 Abs Immat Gran (auto) 0.03 X10*3/uL (0.00-0.03) 10/02/24 20:13 Absolute Neuts (auto) 4.4 x10*3/uL (2.0-8.3) 10/02/24 20:13 Absolute Nucleated RBC 0.000 X10*3/uL (0.0-0.012) 10/02/24 20:13 Nucleated RBC % (auto) 0.0 /100WBC (0.0-0.2) 10/02/24 20:13 Sodium 132 mmol/L (135-145) L 10/02/24 20:13 Potassium 3.7 mmol/L (3.3-5.1) 10/02/24 20:13 Chloride 102 mmol/L (96-108) 10/02/24 20:13 Carbon Dioxide 22 mmol/L (22-29) 10/02/24 20:13 Anion Gap 12 (12-20) 10/02/24 20:13 BUN 8 mg/dL (9-16) L 10/02/24 20:13 Creatinine 0.80 mg/dL (0.5-1.4) 10/02/24 20:13 Estim Creat Clear Calc 65.5 10/02/24 20:13 Estimated GFR > 60 10/02/24 20:13 Random Glucose 114 mg/dL (60-115) 10/02/24 20:13 Calcium 8.3 mg/dL (8.4-10.2) L 10/02/24 20:13 Total Bilirubin 1.1 mg/dL (0.0-1.0) H 10/02/24 20:13 Direct Bilirubin 0.5 mg/dL (0.0-0.5) 10/02/24 20:13 AST 66 U/L (5-31) H 10/02/24 20:13 ALT 30 U/L (0-31) 10/02/24 20:13 Alkaline Phosphatase 198 U/L (39-117) H 10/02/24 20:13 Total Protein 7.2 g/dL (6.5-8.0) 10/02/24 20:13 Albumin 3.4 g/dL (3.5-5.0) L 10/02/24 20:13 Lipase 22 U/L (8-78) 10/02/24 20:13 Urine Color Yellow 10/02/24 23:04 Urine Appearance Clear 10/02/24 23:04 Urine pH 5.5 (5.0-9.0) 10/02/24 23:04 Ur Specific [place] >= 1.030 (1.005-1.025) H 10/02/24 23:04 Urine Protein Negative mg/dL (Neg-Trace) 10/02/24 23:04 Urine Glucose (UA) Negative mg/dL (Negative) 10/02/24 23:04 Urine Ketones Negative mg/dL (Negative) 10/02/24 23:04 Urine Blood Negative (Negative) 10/02/24 23:04 Urine Nitrite Negative (Negative) 10/02/24 23:04 Ur Leukocyte Esterase Trace (Negative) H 10/02/24 23:04 Urine RBC 0-2 /HPF (0-2) 10/02/24 23:04 Urine WBC 6-10 /HPF (0-5) H 10/02/24 23:04 Ur Squamous Epith Cells 3-5 /HPF (0-2) 10/02/24 23:04 Urine Bacteria None Seen (None Seen) 10/02/24 23:04 Hyaline Casts 0-2 /LPF (0-2) 10/02/24 23:04 Impressions Abdomen/Pelvis CT 10/02/24 21:15 IMPRESSION: *Findings suspicious for small bowel obstruction. Proximal small bowel is abnormally dilated up to 3.8 cm in diameter and equalization of the small bowel succus entericus is present consistent with abnormal small bowel motility. A transition point between dilated and nondilated small bowel is noted within the midline lower abdominal quadrants in the region of small bowel anastomotic sutures. No intestinal hernia is noted. No evidence of small bowel volvulus. The obstruction may be secondary to otherwise occult adhesions or dysfunction in the region of the small bowel anastomosis. No free intraperitoneal gas identified. A mild-moderate quantity of low density free intraperitoneal fluid is present increased in extent compared to findings present on the comparison study of 05/15/2024. *Mild concentric contiguous mural thickening of the cecum, ascending colon and hepatic flexure of the colon. These findings may represent colitis. The distribution of findings is suspicious for possible C. difficile colitis. *Borderline contour irregularity of the liver. These findings could represent early CT evidence of hepatic disease and cirrhosis. No definitive evidence of cirrhosis. As clinically indicated, consider further evaluation with hepatic ultrasound. *Adjustable gastric lap band in situ. Electronically signed by: Osiel Landrum MD 10/03/2024 12:04 AM [facility] Assessment and Plan (1) Small bowel obstruction: Status: Acute She has abdominal pain, nausea with CT scan findings suggestive of small bowel obstruction. There is note of air in the colon. There appears to be a transition point in the mid-abdomen. Etiology may be adhesions or anastomotic stricture. I will place an NGT as she continues to have nausea and crampy pain. I explained to her that if she does not improve within a reasonable period of time or if she clinically worsens, she may need laparotomy. Her exam is otherwise at this time. Review of her CT scan however does show what appears to be edema of the colon and transverse colon. Etiology is uncertain but I will check her C diff as well. She does have some fluid surrounding this area as well. Her Xarelto is being held at this time. Quality Stroke Does the patient have a stroke diagnosis?: No VTE Prior VTE?: No VTE Risk Level:: Surgical - low VTE Device Contraindication: N/A - Device Ordered VTE Drug Contraindication: Treatment Not Indicated Procedures Date of Service Date of Service: 10/09/24
--- NOTE | 2024-10-03 08:35 | HO.PM.IMCN ---
History of Present Illness Data of Consult Service Date: 10/03/24 Requesting physician: Ryan Regalado Primary Care Provider: Molly Mcgowan MD HPI Reason for consult: medical consult Patient is a 68-year-old female with a past medical history significant recurrent small-bowel obstructions, multiple previous abdominal, cancer in 2017 status post sigmoid resection, chemotherapy, ileostomy with reversal, history of gastric band, mild aortic stenosis, hypertension, previous smoking history, double bypass in 2019, GERD and persistent AFib on Xarelto, who presented to the ED with abdominal pain and nausea. Found to have a a small-bowel obstruction and placed on NG tube for decompression. She reports a history of a 8 previous NG tube decompressions in the past. She denies any chest pain, shortness of breath, LE edema, pulmonary diagnoses, or any other concerns aside from nausea and abd pain. Review of Systems Constitutional: Constitutional: Denies chills, Denies fatigue, Denies fever(s) and Denies headache(s) Eyes: Eyes: Denies change in vision ENT: Denies headache(s), Denies nasal congestion, Denies nasal discharge and Denies nasal obstruction Cardiovascular: Cardiovascular: Denies chest pain, Denies rapid heart rate, Denies leg edema and Denies dyspnea Respiratory: Respiratory: Denies chest congestion, Denies cough and Denies dyspnea Gastrointestinal: Gastrointestinal: Reports as per HPI, Reports diarrhea (chronic) and Reports nausea Genitourinary: Genitourinary: Denies dysuria and Denies urinary urgency Musculoskeletal: Musculoskeletal: Denies myalgias Integumentary/Breasts: Skin/Breast: Denies rash Neurologic: Denies confusion and Denies headache(s) Psychiatric: Psychiatric: Denies confusion Endocrine: Endocrine: Denies fatigue [facility] Medical History (Updated 10/03/24 @ 09:00 by Stephy Man PA-C) Tremor Diplopia History of small bowel obstruction Hx of colon cancer, stage III Bipolar 1 disorder CAD (coronary artery disease) Persistent atrial fibrillation Essential hypertension Hyperlipidemia Personal history of nicotine dependence Unsteady gait Thrombocytopenia Anemia Cervical radiculopathy due to degenerative joint disease of spine History of radius fracture Degenerative disc disease, cervical Acquired deafness of left ear Family History Sister Substance use disorder Insulin dependent type 1 diabetes mellitus Mother Colon cancer Breast cancer Coronary artery disease High cholesterol Essential hypertension Father Heart disease Brother Heart disease Surgical History Status post coronary artery bypass graft History of coronary artery bypass graft x 2 (~2018) History of cardiac catheterization History of partial colectomy (~2015) History of reversal of ileostomy History of resection of small bowel (~2020) History of laparoscopic adjustable gastric banding (~2004) History of laparoscopic cholecystectomy (~2003) History of parotidectomy (~2014) History of cervical discectomy (~2013) History of surgery on right wrist History of colonoscopy History of esophagogastroduodenoscopy (EGD) History of appendectomy (~2003) History of tonsillectomy History of bunionectomy Social History Household Members: None Housing: Apartment Do you presently have visiting nurse or other home services: No Unable to assess alcohol history related to: Unable to respond Alcohol intake: never Patient Tobacco Use Status: Former Tobacco user Tobacco use type: Cigarette Years Smoked: (former smoker - onset 30yo, 1ppd x 33yrs, 30pyh, quit 11/2018) Smoked in Last 30 Days: No e-Cigarette/Vaping Use: Never Used Second Hand Smoke Exposure: No Use of substances other than those prescribed or required for medical reasons: No Currently Displaying Signs/Symptoms of Drug Intoxication Withdrawal: No Have you been hit, kicked, punched, or otherwise hurt by someone within the past year? If so, by whom?: No Do you feel safe in your current relationship?: No Current Relationship Is there a partner from a previous relationship who is making you feel unsafe now?: No Are you made to feel afraid or neglected: No Advance Directives: Yes Advance Directives on File: Yes Advance Directives Date on File: 03/02/24 Do you have a plan to hurt others: No Plan Recently lost weight without trying: Unsure Eating poorly because of decreased appetite: No Nutrition Risks: No Nutritional Risk Patient : No service: No Current occupational status: retired Cognitive needs: No Hearing needs: No Vision needs: Yes Meds Allergies Allergy/AdvReac Type Severity Reaction Status Date / Time No Known Allergies Allergy Verified 10/02/24 18:20 Active Medications: Current Medications Acetaminophen (Acetaminophen 325 Mg Tablet) 650 mg PO Q6H PRN PRN Reason: Pain, Mild (Pain Scale 1-3), fever or headache Albuterol Sulfate (Albuterol Sulfate 90 Mcg 8 Gm Inhaler) 1 puff INHALE RQ6H PRN PRN Reason: Wheezing Calcium Carbonate (Calcium Carbonate 750 Mg Tab.Chew) 750 mg PO Q4H PRN PRN Reason: Heartburn Lactated Ringer's (Lr) 1,000 mls @ 100 mls/hr IVCONT .Q10H [facility] Magnesium Hydroxide (Milk Of Magnesia 30 Ml Oral.Susp) 30 ml PO DAILY PRN PRN Reason: Constipation Melatonin (Melatonin 3 Mg Tablet) 6 mg PO BEDTIME PRN PRN Reason: Insomnia Morphine Sulfate (Morphine Sulfate 2 Mg/Ml Cartridge) 2 mg IVPUSH Q3H PRN; Protocol PRN Reason: Pain, Severe (Pain Scale 7-10) Ondansetron HCl (Ondansetron Hcl 4 Mg/2 Ml Vial) 4 mg IVPUSH Q6H PRN PRN Reason: Nausea and Vomiting Sodium Chloride (0.9 % Sodium Chloride Flush 3 Ml Syringe) [facility] Last Admin: 10/03/24 07:30 Dose: 3 ml Home Medications ?Medication ?Instructions ?Recorded ?Confirmed ?Last Taken ?Type acetaminophen 325 mg tablet 650 mg PO Q8H PRN ARTHRITIS PAIN 01/09/24 10/03/24 05/15/24 History aspirin 81 mg tablet,delayed 81 mg PO DAILY 01/09/24 10/03/24 10/02/24 History release citalopram 40 mg tablet 40 mg PO DAILY 01/09/24 10/03/24 10/02/24 History ammonium lactate 12 % topical cream 1 appl topical BID PRN Rash 02/06/24 10/03/24 05/15/24 History multivitamin 1 tab PO DAILY 02/28/24 10/03/24 10/02/24 History lactobacillus combination no.4 3 3,000 mmu cells PO DAILY@0800 04/10/24 10/03/24 10/02/24 History billion cell capsule (Probiotic) temazepam 15 mg capsule 15 mg PO BEDTIME 05/16/24 10/03/24 09/30/24 History albuterol sulfate 2.5 mg/3 mL 2.5 mg inhalation Q6H PRN dyspnea 10/03/24 10/03/24 Unknown History (0.083 %) solution for nebulization [id number] 2 cap PO BID 10/03/24 10/03/24 10/02/24 History 36,000-114,000-180,000 unit capsule,delay rel (Creon) midodrine 5 mg tablet 5 mg PO TID PRN Low BP 10/03/24 10/03/24 Unknown History Physical Exam Vital Signs and Narrative: Vital Signs: Last Vital Signs Temp 98.2 F 10/03/24 07:36 Pulse 105 H 10/03/24 07:36 Resp 16 10/03/24 07:36 BP 125/86 10/03/24 07:36 Pulse Ox 96 10/03/24 07:36 O2 Del Method Room Air 10/03/24 07:36 BMI result Body Mass Index 37.0 General: AOx3, no acute distress Resp: CTA bilaterally CVS: mildly tachycardic, irregularly irregular GI: hypoactive but present BS, genrealized tenderness Skin: Warm, dry Extremities: No edema Psych: Appropriate affect Const: General: No confusion Orientation/consciousness: No confusion Neuro: General: No confusion Results Labs 10/02/24 20:13 10/02/24 20:13 Labs: Laboratory Results - last 24 hr 10/02/24 10/02/24 20:13 23:04 MCV 86.8 MCH 30.3 MCHC 34.8 RDW 14.1 Plt Count 156 L D MPV 10.4 Immature Gran % (Auto) 0.5 H Neut % (Auto) 70.5 Lymph % (Auto) 11.7 L [place] % (Auto) 15.7 H Eos % (Auto) 1.1 Baso % (Auto) 0.5 Lymph # (Auto) 0.7 L [place] # (Auto) 1.0 Eos # (Auto) 0.1 Baso # (Auto) 0.0 Abs Immat Gran (auto) 0.03 Absolute Neuts (auto) 4.4 Absolute Nucleated RBC 0.000 Nucleated RBC % (auto) 0.0 Anion Gap 12 Estim Creat Clear Calc 65.5 Estimated GFR > 60 Random Glucose 114 Calcium 8.3 L Total Bilirubin 1.1 H Direct Bilirubin 0.5 AST 66 H ALT 30 Alkaline Phosphatase 198 H Total Protein 7.2 Albumin 3.4 L Lipase 22 Urine Color Yellow Urine Appearance Clear Urine pH 5.5 Ur Specific [place] >= 1.030 H Urine Protein Negative Urine Glucose (UA) Negative Urine Ketones Negative Urine Blood Negative Urine Nitrite Negative Ur Leukocyte Esterase Trace H Urine RBC 0-2 Urine WBC 6-10 H Ur Squamous Epith Cells 3-5 Urine Bacteria None Seen Hyaline Casts 0-2 Imaging Radiologist's Impressions: Impressions Abdomen/Pelvis CT 10/02/24 21:15 IMPRESSION: *Findings suspicious for small bowel obstruction. Proximal small bowel is abnormally dilated up to 3.8 cm in diameter and equalization of the small bowel succus entericus is present consistent with abnormal small bowel motility. A transition point between dilated and nondilated small bowel is noted within the midline lower abdominal quadrants in the region of small bowel anastomotic sutures. No intestinal hernia is noted. No evidence of small bowel volvulus. The obstruction may be secondary to otherwise occult adhesions or dysfunction in the region of the small bowel anastomosis. No free intraperitoneal gas identified. A mild-moderate quantity of low density free intraperitoneal fluid is present increased in extent compared to findings present on the comparison study of 05/15/2024. *Mild concentric contiguous mural thickening of the cecum, ascending colon and hepatic flexure of the colon. These findings may represent colitis. The distribution of findings is suspicious for possible C. difficile colitis. *Borderline contour irregularity of the liver. These findings could represent early CT evidence of hepatic disease and cirrhosis. No definitive evidence of cirrhosis. As clinically indicated, consider further evaluation with hepatic ultrasound. *Adjustable gastric lap band in situ. Electronically signed by: Osiel Landrum MD 10/03/2024 12:04 AM [facility] Assessment and Plan (1) Small bowel obstruction: Status: Acute (2) Persistent atrial fibrillation: Status: Chronic (3) CAD (coronary artery disease): Qualifiers: Associated angina: unspecified whether angina present Coronary Disease-Associated Artery/Lesion type: unspecified vessel or lesion type [place] vs. transplanted heart: [place] heart Qualified Code(s): I25.10 - Atherosclerotic heart disease of [place] coronary artery without angina pectoris Status: Chronic (4) Nonrheumatic aortic (valve) stenosis: Status: Chronic (5) Obesity (BMI 35.0-39.9 without comorbidity): Status: Chronic Plan Patient is a 68-year-old female with a past medical history significant recurrent small-bowel obstructions, multiple previous abdominal, cancer in 2017 status post sigmoid resection, chemotherapy, ileostomy with reversal, history of gastric band, mild aortic stenosis, hypertension, previous smoking history, CAD s/p CABG x2 in 2019, GERD, bipolar, and persistent AFib on Xarelto, who presented to the ED with abdominal pain and nausea. Found to have a a small-bowel obstruction and placed on NG tube for decompression. SBO - NG tube in place - plan per surgery a fib - hold xarelto due to possible surgery, resume when appropriate - hold metoprolol for now as she is on NG tube, treat with IV meds as needed - start tele now HTN - BP ok, holding meds for now CAD/hx CABG in 2019 - hold ASA - echo 03/07 with EF >70%, mild , severe mitral annular calcification, mild pulmonary HTN prolonged QTc - K normal, will add mag level - avoid QT prolonging agents for now when possible bipolar - holding carbamazepine and seroquel for now due to NG tube - may consult psych for alternatives medications if withdrawal Thank you for allowing me to participate in the pt's care. Will continue to follow. Please contact the medical team if any questions or concerns.
--- NOTE | 2024-10-03 08:49 | MHC.CM.PN ---
IMM 10/03/24 DX Nausea Female 68 lives alone. She is independent with equipment, walker+ tub bench. HCP is on file. DP home self care. Her son will provide transportation home.
--- NOTE | 2024-10-03 09:10 | PHA.MEDREC ---
Addendum entered by Jose Antonio Hays RPh 10/03/24 10:15: Med rec was reviewed by [facility]. Patient confirmed she is not taking furosemide (hasn't been taking it for 2 months). Original Note: Pharmacy Consult ? Medication Reconciliation Pharmacy has completed the medication reconciliation. Spoke to patient to confirm med list. Patient was able to tell me the medications she is taking. Patient states she is no longer taking Cholestyramine 4 mg powder packets. patient confirmed Quetiapine is now 100 mg at bed time and Carbamazepine 150 mg TID. The dose's were decrease because of her weight loss.
[2024-10-03] MEDS: Lactated Ringers 1,000 ML 100 ML IVCONT ×2 (09:18→20:08)
[2024-10-03 09:37] LABS: Magnesium 1.4 mg/dL (1.6-2.6)
[2024-10-03] MEDS: Magnesium Sulfate/H2O 2 GM/50 ML PIGGYBACK IV (10:22)
[2024-10-03 11:21] VITALS: BP 141/72; PULSE 112; RESP 18; TEMP 36.8; O2SAT 97
[2024-10-03 14:59] VITALS: BP 147/80; PULSE 110; RESP 18; TEMP 36.4; O2SAT 96
--- NOTE | 2024-10-03 16:16 | PM.EVENT ---
Event Note Date of Service: 10/04/24 Event Note: Seen on afternoon rounds Tired, has not slept last night She says she still has crampy pain that comes in waves NG tube output not a lot She says she has passed flatus today Abdomen is soft and benign with no guarding or rebound Pain management for now NG tube for decompression Repeat labs in the morning Chest x-ray post NG tube insertion shows tip of NG tube to be in the stomach Time Spent With Patient Time: Total time managing care of this patient today ____ minutes.
[2024-10-03] MEDS: Metoprolol Tartrate 5 MG/5 ML VIAL IVPUSH (16:36)
[2024-10-03 19:35] VITALS: BP 144/90; PULSE 105; RESP 18; TEMP 36.8; O2SAT 96
[2024-10-03] MEDS: Temazepam 15 MG CAPSULE PO (21:02)
[2024-10-03 23:45] VITALS: BP 148/73; PULSE 107; RESP 16; TEMP 37; O2SAT 95
[2024-10-04] VITALS (13 sets, daily range): BP systolic 100–132; BP diastolic 61–85; PULSE 99–128; RESP 16–18; TEMP 36.1–37.1; O2SAT 94–97
[2024-10-04] MEDS: Morphine Sulfate 2 MG/ML CARTRIDGE IVPUSH ×2 (00:59→07:49)
[2024-10-04] MEDS: Metoprolol Tartrate 5 MG/5 ML VIAL IVPUSH ×2 (03:43→11:42)
[2024-10-04] MEDS: Lactated Ringers 1,000 ML 100 ML IVCONT ×2 (05:05→18:11)
[2024-10-04 07:54] LABS: Hematocrit 36.2 % (37.0-47.0); Hemoglobin 12.3 g/dl (12.0-16.0); Mean Corpuscular Volume 88.3 fL (80.0-98.0); Mean Platelet Volume 10.3 fL (9.4-12.3); Platelet Count 170 X10*3/uL (160-400); Red Cell Distribution Width 14.6 % (11.0-16.0); White Blood Count 7.4 X10*3/uL (4.8-10.8)
[2024-10-04] MEDS: ondansetron HCL 4 MG/2 ML VIAL IVPUSH ×2 (07:58→16:01)
[2024-10-04 08:08] LABS: Anion Gap 14 (12-20); Blood Urea Nitrogen 6 mg/dL (9-16); Calcium 8.8 mg/dL (8.4-10.2); Carbon Dioxide 24 mmol/L (22-29); Chloride 103 mmol/L (96-108); Estimated Glomerular Filt Rate > 60; Glucose Random 98 mg/dL (60-115); Potassium 4.2 mmol/L (3.3-5.1); Sodium 137 mmol/L (135-145)
--- NOTE | 2024-10-04 08:27 | P.PNGS_ITS ---
Subjective Subjective Date of Service: 10/04/24 Interval history: Describes occasional crampy lower abdominal pain Overall, she says she feels better Passing more flatus overnight Physical Exam 2 Vital Signs: Vital Signs: Last Vital Signs Temp 98.8 F 10/04/24 07:15 Pulse 111 H 10/04/24 07:28 Resp 16 10/04/24 07:15 BP 132/84 10/04/24 07:15 Pulse Ox 95 10/04/24 07:15 O2 Del Method Room Air 10/04/24 07:15 BMI result Body Mass Index 37.0 Const: Other: Looks well General: comfortable and no acute distress Resp: Effort & Inspection: normal respiratory effort Cardio: Rate: tachycardic GI: Palpation (GI): Soft to palpation, not firm, Tenderness to palpation present (GI) (Mild tenderness lower abdomen) and no guarding Objective Data Active Medications Acetaminophen (Acetaminophen 325 Mg Tablet) 650 mg PO Q6H PRN PRN Reason: Pain, Mild (Pain Scale 1-3), fever or headache Albuterol Sulfate (Albuterol Sulfate 90 Mcg 8 Gm Inhaler) 1 puff INHALE RQ6H PRN PRN Reason: Wheezing Calcium Carbonate (Calcium Carbonate 750 Mg Tab.Chew) 750 mg PO Q4H PRN PRN Reason: Heartburn Lactated Ringer's (Lr) 1,000 mls @ 100 mls/hr IVCONT .Q10H [facility] Last Admin: 10/04/24 05:05 Dose: 100 mls/hr Documented By: DAWIT Magnesium Hydroxide (Milk Of Magnesia 30 Ml Oral.Susp) 30 ml PO DAILY PRN PRN Reason: Constipation Melatonin (Melatonin 3 Mg Tablet) 6 mg PO BEDTIME PRN PRN Reason: Insomnia Metoprolol Tartrate (Metoprolol Tartrate 5 Mg/5 Ml Vial) 5 mg IVPUSH Q6H PRN; Protocol PRN Reason: hr>100 Last Admin: 10/04/24 03:43 Dose: 5 mg Documented By: DAWIT Morphine Sulfate (Morphine Sulfate 2 Mg/Ml Cartridge) 2 mg IVPUSH Q2H PRN; Protocol PRN Reason: Pain, Severe (Pain Scale 7-10) Last Admin: 10/04/24 07:49 Dose: 2 mg Documented By: JENNY Ondansetron HCl (Ondansetron Hcl 4 Mg/2 Ml Vial) 4 mg IVPUSH Q6H PRN PRN Reason: Nausea and Vomiting Last Admin: 10/04/24 07:58 Dose: 4 mg Documented By: JENNY Sodium Chloride (0.9 % Sodium Chloride Flush 3 Ml Syringe) 3 ml IVFLUSH QSHIFT [facility] Last Admin: 10/04/24 07:45 Dose: Not Given Documented By: JENNY Non-Admin Reason: IV Running Temazepam (Temazepam 15 Mg Capsule) 15 mg PO BEDTIME [facility] Last Admin: 10/03/24 21:02 Dose: 15 mg Documented By: DAWIT Labs 10/04/24 07:31 10/04/24 07:31 Labs: Laboratory Results - last 24 hr 10/02/24 10/03/24 10/04/24 20:13 14:01 07:31 MCV 88.3 MCH 30.0 MCHC 34.0 RDW 14.6 Plt Count 170 MPV 10.3 Absolute Nucleated RBC 0.000 Nucleated RBC % (auto) 0.0 Anion Gap 14 Estim Creat Clear Calc 76.0 Estimated GFR > 60 Random Glucose 98 Calcium 8.8 D Magnesium 1.4 L* 2.0 Procedures Date of Service Date of Service: 10/04/24 Progress Note: A&P Assessment and plan (1) Small bowel obstruction: Status: Acute Assessment and Plan: NG tube output 250 overnight She does describe some flatus We will monitor NG tube output today Abdomen is soft and benign Labs okay Heart rate elevated - she is on metoprolol Looks well overall CT scan showed edema as well of the right colon along with free fluid C diff test order Time Spent With Patient Time: Total time managing care of this patient today ____ minutes. Quality Stroke Does the patient have a stroke diagnosis?: No VTE Prior VTE?: No VTE Risk Level:: Surgical - low VTE Device Contraindication: N/A - Device Ordered VTE Drug Contraindication: Treatment Not Indicated
[2024-10-04 09:40] LABS: Magnesium 1.8 mg/dL (1.6-2.6)
--- NOTE | 2024-10-04 09:47 | P.PNIM_ITS ---
Subjective Subjective Date of Service: 10/04/24 Interval History: Patient is a 68-year-old female admitted for small-bowel obstruction on NG tube for decompression Has had some output with NG tube, passing flatus, no bowel movement. Nausea controlled. No general medical concerns including chest pain, shortness of breath or lower extremity edema. She is very concerned about restarting her Eliquis as soon as possible due to her diagnosis of AFib. Currently on pneumoboots Had episodes of tachycardia yesterday requiring metoprolol 5mg q.6h p.r.n. Constitutional Constitutional: Denies headache(s) Eyes Eyes: Denies change in vision ENT Ears, Nose, Mouth, and Throat: Denies headache(s), Denies nasal congestion, Denies nasal discharge and Denies sore throat Cardiovascular Cardiovascular: Denies chest pain, Denies rapid heart rate, Denies leg edema and Denies dyspnea Respiratory Respiratory: Denies cough, Denies dyspnea and Denies wheezing Gastrointestinal Gastrointestinal: Reports as per HPI Genitourinary Genitourinary: Denies dysuria Neurologic Neurologic: Denies headache(s) Allergic/Immunologic Allergic/Immunologic: Denies wheezing Physical Exam 2 Vital Signs: Vital Signs: Last Vital Signs Temp 98.8 F 10/04/24 07:15 Pulse 111 H 10/04/24 07:28 Resp 16 10/04/24 07:15 BP 132/84 10/04/24 07:15 Pulse Ox 95 10/04/24 07:15 O2 Del Method Room Air 10/04/24 07:15 BMI result Body Mass Index 37.0 General: AOx3, no acute distress Resp: CTA bilaterally CVS: mild tachy rate 108-112 on monitor while examined, irregularly irregular GI: +BS, mild tenderness, no distention Skin: Warm, dry Extremities: No edema Psych: Appropriate affect Objective Data Active Medications Acetaminophen (Acetaminophen 325 Mg Tablet) 650 mg PO Q6H PRN PRN Reason: Pain, Mild (Pain Scale 1-3), fever or headache Albuterol Sulfate (Albuterol Sulfate 90 Mcg 8 Gm Inhaler) 1 puff INHALE RQ6H PRN PRN Reason: Wheezing Calcium Carbonate (Calcium Carbonate 750 Mg Tab.Chew) 750 mg PO Q4H PRN PRN Reason: Heartburn Lactated Ringer's (Lr) 1,000 mls @ 100 mls/hr IVCONT .Q10H [facility] Last Admin: 10/04/24 05:05 Dose: 100 mls/hr Documented By: DAWIT Magnesium Hydroxide (Milk Of Magnesia 30 Ml Oral.Susp) 30 ml PO DAILY PRN PRN Reason: Constipation Melatonin (Melatonin 3 Mg Tablet) 6 mg PO BEDTIME PRN PRN Reason: Insomnia Metoprolol Tartrate (Metoprolol Tartrate 5 Mg/5 Ml Vial) 5 mg IVPUSH Q6H PRN; Protocol PRN Reason: hr>100 Last Admin: 10/04/24 03:43 Dose: 5 mg Documented By: DAWIT Morphine Sulfate (Morphine Sulfate 2 Mg/Ml Cartridge) 2 mg IVPUSH Q2H PRN; Protocol PRN Reason: Pain, Severe (Pain Scale 7-10) Last Admin: 10/04/24 07:49 Dose: 2 mg Documented By: JENNY Ondansetron HCl (Ondansetron Hcl 4 Mg/2 Ml Vial) 4 mg IVPUSH Q6H PRN PRN Reason: Nausea and Vomiting Last Admin: 10/04/24 07:58 Dose: 4 mg Documented By: JENNY Sodium Chloride (0.9 % Sodium Chloride Flush 3 Ml Syringe) 3 ml IVFLUSH QSHIFT [facility] Last Admin: 10/04/24 07:45 Dose: Not Given Documented By: JENNY Non-Admin Reason: IV Running Temazepam (Temazepam 15 Mg Capsule) 15 mg PO BEDTIME [facility] Last Admin: 10/03/24 21:02 Dose: 15 mg Documented By: DAWIT Labs 10/04/24 07:31 10/04/24 07:31 Labs: Laboratory Results - last 24 hr 10/03/24 10/04/24 14:01 07:31 MCV 88.3 MCH 30.0 MCHC 34.0 RDW 14.6 Plt Count 170 MPV 10.3 Absolute Nucleated RBC 0.000 Nucleated RBC % (auto) 0.0 Anion Gap 14 Estim Creat Clear Calc 76.0 Estimated GFR > 60 Random Glucose 98 Calcium 8.8 D Magnesium 2.0 1.8 Assessment and Plan (1) Small bowel obstruction: Status: Acute (2) Persistent atrial fibrillation: Status: Chronic Plan Patient is a 68-year-old female with a past medical history significant recurrent small-bowel obstructions, multiple previous abdominal, cancer in 2017 status post sigmoid resection, chemotherapy, ileostomy with reversal, history of gastric band, mild aortic stenosis, hypertension, previous smoking history, CAD s/p CABG x2 in 2019, GERD, bipolar, and persistent AFib on Xarelto, who presented to the ED with abdominal pain and nausea. Found to have a a small- bowel obstruction and placed on NG tube for decompression. SBO - NG tube in place - plan per surgery chronic a fib - episodes of tachycardia yesterday - hold xarelto due to possible surgery, resume when appropriate - IV metoprolol 5mg Q6H PRN HR >100 - continue tele HTN - BP ok, holding meds for now CAD/hx CABG in 2019 - hold ASA - echo 03/07 with EF >70%, mild , severe mitral annular calcification, mild pulmonary HTN prolonged QTc - K normal, mag low normal will give another gram - avoid QT prolonging agents for now when possible bipolar - holding carbamazepine and seroquel for now due to NG tube - may consult psych for alternatives medications if withdrawal Thank you for allowing me to participate in the pt's care. Will continue to follow. Please contact the medical team if any questions or concerns. Quality Stroke Does the patient have a stroke diagnosis?: No VTE Prior VTE?: No VTE Risk Level:: Surgical - low VTE Device Contraindication: N/A - Device Ordered VTE Drug Contraindication: Treatment Not Indicated
[2024-10-04] MEDS: Magnesium Sulfate/D5W 1 GM/100 ML PIGGYBACK IV (11:13)
--- NOTE | 2024-10-04 11:13 | PC.NURSE ---
HR elevated,120,patient had a dose of IV Lopressor early am which did not bring her HR down below 100,ARAVIND Keyes notified,patient denies chest pain or sob
[2024-10-04] MEDS: Throat Lozenge, Medicated LOZENGE 1 LOZENGE MUCOUS MEM (12:28)
--- NOTE | 2024-10-04 15:01 | P.CDIM_ITS ---
PROVIDER RESPONSE TEXT: To clarify, the appropriate diagnosis supported by the clinical indicators: Partial SBO QUERY TEXT: PHYSICIAN'S DOCUMENTATION REQUEST Date of Query: 10/04/2024 01:12 PM EST Patient Name: Deidre To Admit Date: 10/03/2024 Dear Ryan Regalado MD, A review of the medical record indicates additional documentation may be needed. Please review below and update the documentation accordingly. Clinical Indicators: Per General Surgery Progress Note 10/04/24: SBO NGT Based on the above, could you clarify the appropriate diagnosis, if significant, that supports the ab ove abnormalities and additional evaluation, monitoring, and/or treatment rendered: Partial SBO Complete SBO Other (explain) Clinically unable to determine (explain) Thank you, Leta Newton RN Use of terms such as suspected, likely, concern for, or probable (associated with a specific diagnosi s that is being evaluated, monitored, or treated as if it exists) are acceptable and can be coded in the inpatient se tting, when documented at the time of discharge. Please use your independent medical judgment in providing your response. THIS QUERY IS PART OF THE PERMANENT MEDICAL RECORD
--- NOTE | 2024-10-04 15:36 | PM.EVENT ---
Event Note Date of Service: 10/04/24 Event Note: Seen on afternoon rounds She says she feels better No nausea or vomiting Crampy pain much improved She states she has been passing a lot of flatus Abdomen is soft, benign, no significant tenderness No diarrhea No fever Minimal NG tube output NG tube therefore removed Okay to have ice chips for now Looks well, sitting on recliner Time Spent With Patient Time: Total time managing care of this patient today ____ minutes.
[2024-10-04] MEDS: 0.9 % Sodium Chloride Flush 3 ML SYRINGE IVFLUSH ×2 (16:01→20:53)
[2024-10-04] MEDS: Metoprolol Tartrate 12.5 MG HALFTAB PO (18:12)
[2024-10-04 20:02] LABS: CDiff Gene PCR POSITIVE (Negative)
[2024-10-04 20:43] LABS: CDIFF Internal ctrl Dots and bkg OK (V)
[2024-10-04 20:50] LABS: CDiff Toxin Negative (Negative)
[2024-10-04] MEDS: Temazepam 15 MG CAPSULE PO (20:54)
--- NOTE | 2024-10-04 21:00 | PM.EVENT ---
Event Note Date of Service: 10/04/24 Event Note: Lab reported cdiff gene +. Toxin pending. Initiated p.o. vancomycin through NG tube. Consulting Infectious Disease. Time Spent With Patient Time: Total time managing care of this patient today ____ minutes.
[2024-10-04] MEDS: vancomycin HCL Oral Solution 125 MG/5 ML SOLN.RECON NG-TUBE (22:11)
[2024-10-05 03:14] VITALS: BP 108/60; PULSE 108; RESP 16; TEMP 36.1; O2SAT 96
[2024-10-05] MEDS: vancomycin HCL Oral Solution 125 MG/5 ML SOLN.RECON NG-TUBE ×3 (03:23→14:25)
[2024-10-05] MEDS: Lactated Ringers 1,000 ML 100 ML IVCONT ×2 (05:57→16:53)
[2024-10-05 07:29] VITALS: BP 108/67; PULSE 110; RESP 16; TEMP 36.8; O2SAT 95
[2024-10-05] MEDS: Metoprolol Tartrate 12.5 MG HALFTAB PO (07:51)
[2024-10-05] MEDS: 0.9 % Sodium Chloride Flush 3 ML SYRINGE IVFLUSH ×2 (07:51→16:53)
[2024-10-05 08:52] LABS: Hemoglobin 11.8 g/dl (12.0-16.0); Mean Corpuscular HGB Conc 33.7 g/dl (31.0-35.0); Mean Corpuscular Hemoglobin 30.3 pg (27.0-33.0); Mean Platelet Volume 9.9 fL (9.4-12.3); Platelet Count 154 X10*3/uL (160-400); Red Blood Count 3.89 X10*6/uL (4.20-5.50); Red Cell Distribution Width 14.9 % (11.0-16.0); White Blood Count 6.5 X10*3/uL (4.8-10.8)
--- NOTE | 2024-10-05 09:05 | PM.PNGS ---
Subjective Subjective Date of Service: 10/05/24 Interval history: She feels much better today Denies crampy pain No nausea or vomiting C diff test was positive Physical Exam Vital Signs: Vital Signs: Last Vital Signs Temp 98.2 F 10/05/24 07:29 Pulse 110 H 10/05/24 07:29 Resp 16 10/05/24 07:29 BP 108/67 10/05/24 07:29 Pulse Ox 95 10/05/24 07:29 O2 Del Method Room Air 10/05/24 07:29 BMI result Body Mass Index 37.0 Const: General: comfortable and no acute distress Resp: Effort & Inspection: normal respiratory effort Cardio: Rate: tachycardic GI: Palpation (GI): Soft to palpation, not firm and nontender Objective Data Active Medications Acetaminophen (Acetaminophen 325 Mg Tablet) 650 mg PO Q6H PRN PRN Reason: Pain, Mild (Pain Scale 1-3), fever or headache Albuterol Sulfate (Albuterol Sulfate 90 Mcg 8 Gm Inhaler) 1 puff INHALE RQ6H PRN PRN Reason: Wheezing Benzocaine (Throat Lozenge, Medicated Lozenge) 1 lozenge MUCOUS MEM Q2H PRN PRN Reason: Sore Throat Last Admin: 10/04/24 12:28 Dose: 1 lozenge Documented By: JENNY Calcium Carbonate (Calcium Carbonate 750 Mg Tab.Chew) 750 mg PO Q4H PRN PRN Reason: Heartburn Lactated Ringer's (Lr) 1,000 mls @ 100 mls/hr IVCONT .Q10H [facility] Last Admin: 10/05/24 05:57 Dose: 100 mls/hr Documented By: OSVALDO Magnesium Hydroxide (Milk Of Magnesia 30 Ml Oral.Susp) 30 ml PO DAILY PRN PRN Reason: Constipation Melatonin (Melatonin 3 Mg Tablet) 6 mg PO BEDTIME PRN PRN Reason: Insomnia Metoprolol Tartrate (Metoprolol Tartrate 5 Mg/5 Ml Vial) 5 mg IVPUSH Q6H PRN; Protocol PRN Reason: hr>100 Last Admin: 10/04/24 11:42 Dose: 5 mg Documented By: ANVIN Comments: HR128 Metoprolol Tartrate (Metoprolol Tartrate 12.5 Mg Halftab) 12.5 mg PO BID [facility]; Protocol Last Admin: 10/05/24 07:51 Dose: 12.5 mg Documented By: JENNY Morphine Sulfate (Morphine Sulfate 2 Mg/Ml Cartridge) 2 mg IVPUSH Q2H PRN; Protocol PRN Reason: Pain, Severe (Pain Scale 7-10) Last Admin: 10/04/24 07:49 Dose: 2 mg Documented By: JENNY Ondansetron HCl (Ondansetron Hcl 4 Mg/2 Ml Vial) 4 mg IVPUSH Q6H PRN PRN Reason: Nausea and Vomiting Last Admin: 10/04/24 16:01 Dose: 4 mg Documented By: JENNY Sodium Chloride (0.9 % Sodium Chloride Flush 3 Ml Syringe) 3 ml IVFLUSH QSHIFT [facility] Last Admin: 10/05/24 07:51 Dose: 3 ml Documented By: JENNY Temazepam (Temazepam 15 Mg Capsule) 15 mg PO BEDTIME [facility] Last Admin: 10/04/24 20:54 Dose: 15 mg Documented By: OSVALDO Vancomycin HCl (Vancomycin Hcl Oral Solution 125 Mg/5 Ml Soln.Recon) 125 mg NG-TUBE Q6H [facility] Last Admin: 10/05/24 07:52 Dose: 125 mg Documented By: JENNY Labs 10/05/24 08:29 10/04/24 07:31 Labs: Laboratory Results - last 24 hr 10/04/24 10/04/24 10/05/24 07:31 18:53 08:29 MCV 90.0 MCH 30.3 MCHC 33.7 RDW 14.9 Plt Count 154 L MPV 9.9 Absolute Nucleated RBC 0.000 Nucleated RBC % (auto) 0.0 Magnesium 1.8 C. difficile Tox B Gene POSITIVE A* C. difficile Toxin A&B Negative C. difficile Interpret SEE NOTE Microbiology Microbiology Results: Microbiology 10/02/24 Unknown Urine Culture - Final Urine clean catch - Clean Catch Midstream Escherichia coli Enterococcus faecalis Procedures Date of Service Date of Service: 10/05/24 Progress Note: A&P Assessment and plan (1) Small bowel obstruction: Status: Acute Assessment and Plan: Symptoms resolved Abdomen soft and benign Nausea or vomiting We will start on clear liquids Okay to have p.o. metoprolol (2) C. difficile colitis: Status: Acute Assessment and Plan: C diff test positive She has no diarrhea Her CAT scan does show thickening of the right colon and transverse Vancomycin p.o. start Appreciate hospitalist follow-up Time Spent With Patient Time: Total time managing care of this patient today ____ minutes. Quality Stroke Does the patient have a stroke diagnosis?: No VTE Prior VTE?: No VTE Risk Level:: Surgical - low VTE Device Contraindication: N/A - Device Ordered VTE Drug Contraindication: Treatment Not Indicated
[2024-10-05 09:12] LABS: Anion Gap 15 (12-20); Blood Urea Nitrogen 10 mg/dL (9-16); Calcium 8.7 mg/dL (8.4-10.2); Carbon Dioxide 24 mmol/L (22-29); Chloride 103 mmol/L (96-108); Creatinine Clr Calc Pharmacy 71.8; Estimated Glomerular Filt Rate > 60; Glucose Random 85 mg/dL (60-115); Potassium 4.7 mmol/L (3.3-5.1); Sodium 137 mmol/L (135-145)
--- NOTE | 2024-10-05 11:27 | P.PNIM_ITS ---
Subjective Subjective Date of Service: 10/06/24 Interval History: overall is doing better, ngt out, had bm this morning hr still on high side, she denies any urinary sympotoms Physical Exam 2 Vital Signs: Vital Signs: Last Vital Signs Temp 98.2 F 10/05/24 07:29 Pulse 110 H 10/05/24 07:29 Resp 16 10/05/24 07:29 BP 108/67 10/05/24 07:29 Pulse Ox 95 10/05/24 07:29 O2 Del Method Room Air 10/05/24 07:29 BMI result Body Mass Index 37.0 Const: Other: General: AO X 3, no acute distress Resp: CTA bilateral CVS: S1,S2, iregular iregular GI: +BS, NT, no distention Skin: No rash Neuro: motor grossly intact Psych: appropriate affect Objective Data Active Medications Acetaminophen (Acetaminophen 325 Mg Tablet) 650 mg PO Q6H PRN PRN Reason: Pain, Mild (Pain Scale 1-3), fever or headache Albuterol Sulfate (Albuterol Sulfate 90 Mcg 8 Gm Inhaler) 1 puff INHALE RQ6H PRN PRN Reason: Wheezing Benzocaine (Throat Lozenge, Medicated Lozenge) 1 lozenge MUCOUS MEM Q2H PRN PRN Reason: Sore Throat Last Admin: 10/04/24 12:28 Dose: 1 lozenge Documented By: JENNY Calcium Carbonate (Calcium Carbonate 750 Mg Tab.Chew) 750 mg PO Q4H PRN PRN Reason: Heartburn Lactated Ringer's (Lr) 1,000 mls @ 100 mls/hr IVCONT .Q10H [facility] Last Admin: 10/05/24 05:57 Dose: 100 mls/hr Documented By: OSVALDO Magnesium Hydroxide (Milk Of Magnesia 30 Ml Oral.Susp) 30 ml PO DAILY PRN PRN Reason: Constipation Melatonin (Melatonin 3 Mg Tablet) 6 mg PO BEDTIME PRN PRN Reason: Insomnia Metoprolol Tartrate (Metoprolol Tartrate 5 Mg/5 Ml Vial) 5 mg IVPUSH Q6H PRN; Protocol PRN Reason: hr>100 Last Admin: 10/04/24 11:42 Dose: 5 mg Documented By: NAVIN Comments: HR128 Metoprolol Tartrate (Metoprolol Tartrate 12.5 Mg Halftab) 12.5 mg PO BID [facility]; Protocol Last Admin: 10/05/24 07:51 Dose: 12.5 mg Documented By: JENNY Morphine Sulfate (Morphine Sulfate 2 Mg/Ml Cartridge) 2 mg IVPUSH Q2H PRN; Protocol PRN Reason: Pain, Severe (Pain Scale 7-10) Last Admin: 10/04/24 07:49 Dose: 2 mg Documented By: JENNY Ondansetron HCl (Ondansetron Hcl 4 Mg/2 Ml Vial) 4 mg IVPUSH Q6H PRN PRN Reason: Nausea and Vomiting Last Admin: 10/04/24 16:01 Dose: 4 mg Documented By: JENNY Sodium Chloride (0.9 % Sodium Chloride Flush 3 Ml Syringe) 3 ml IVFLUSH QSHIFT [facility] Last Admin: 10/05/24 07:51 Dose: 3 ml Documented By: JENNY Temazepam (Temazepam 15 Mg Capsule) 15 mg PO BEDTIME [facility] Last Admin: 10/04/24 20:54 Dose: 15 mg Documented By: OSVALDO Vancomycin HCl (Vancomycin Hcl Oral Solution 125 Mg/5 Ml Soln.Recon) 125 mg NG- TUBE Q6H [facility] Last Admin: 10/05/24 07:52 Dose: 125 mg Documented By: JENNY Labs 10/05/24 08:29 10/05/24 08:29 Labs: Laboratory Results - last 24 hr 10/04/24 10/05/24 18:53 08:29 MCV 90.0 MCH 30.3 MCHC 33.7 RDW 14.9 Plt Count 154 L MPV 9.9 Absolute Nucleated RBC 0.000 Nucleated RBC % (auto) 0.0 Anion Gap 15 Estim Creat Clear Calc 71.8 Estimated GFR > 60 Random Glucose 85 Calcium 8.7 C. difficile Tox B Gene POSITIVE A* C. difficile Toxin A&B Negative C. difficile Interpret SEE NOTE Microbiology Microbiology Results: Microbiology 10/02/24 Unknown Urine Culture - Final Urine clean catch - Clean Catch Midstream Escherichia coli Enterococcus faecalis Assessment and Plan (1) Small bowel obstruction: Status: Acute (2) Persistent atrial fibrillation: Status: Chronic Plan 68-year-old female with a past medical history significant recurrent small-bowel obstructions, multiple previous abdominal, cancer in 2017 status post sigmoid resection, chemotherapy, ileostomy with reversal, history of gastric band, mild aortic stenosis, hypertension, previous smoking history, CAD s/p CABG x2 in 2019, GERD, bipolar, and persistent AFib on Xarelto, who presented to the ED with abdominal pain and nausea. Found to have a a small-bowel obstruction and placed on NG tube for decompression. SBO--NGT removed, pt had bm this morning, further management per surgery chronic a fib - rate not controlled, continue metoprolol and adjust dose for optimal heart rate control resume xarelto if no surgery planned. Cdif--started on Vanco for 10 to 14 days +UA with culture showing E. Faecacium and resistant e coli -no reported symptoms, likely colonization and no indication for Abx which could make C dif worse HTN - continue metoprolol CAD/hx CABG in 2019 - hold ASA - echo 03/07 with EF >70%, mild , severe mitral annular calcification, mild pulmonary HTN prolonged QTc - K normal, mag low normal will give another gram - avoid QT prolonging agents for now when possible bipolar - continue carbamazepine and seroquel - dvt--device Quality Stroke Does the patient have a stroke diagnosis?: No VTE Prior VTE?: No VTE Risk Level:: Surgical - low VTE Device Contraindication: N/A - Device Ordered VTE Drug Contraindication: Treatment Not Indicated
[2024-10-05 12:00] VITALS: BP 127/58; PULSE 97; RESP 16; TEMP 36.6; O2SAT 96
--- NOTE | 2024-10-05 12:16 | MHC.CM.PN ---
EMR REVIEWED. PT IS NOT MEDICALLY CLEARED FOR DC HOME, C DIFF +, VANCO INITIATED. CM WILL CONTINUE TO FOLLOW FOR ANY CHANGE TO DC PLAN/NEEDS.
[2024-10-05] MEDS: carBAMazepine 100 MG TAB.CHEW 150 MG PO ×2 (14:26→20:48)
[2024-10-05 15:27] VITALS: BP 118/61; PULSE 102; RESP 16; TEMP 36.6; O2SAT 97
[2024-10-05] MEDS: vancomycin HCL Oral Solution 125 MG/5 ML SOLN.RECON PO (18:41)
[2024-10-05 19:32] VITALS: BP 158/76; PULSE 106; RESP 16; TEMP 37.2; O2SAT 95
[2024-10-05] MEDS: Metoprolol Tartrate 25 MG TABLET PO (20:48)
--- NOTE | 2024-10-05 22:01 | P.CNID_ITS ---
History of Present Illness Data of Consult Service Date: 10/05/24 Requesting physician: Ryan Regalado Primary Care Provider: Molly Mcgowan MD HPI Reason for consult: abdominal discomfort, Cdiff PCR She presents with 7/10 pain lower abdomen with no fever or chills. She has had colon cancer. She has h/o SBO and short bowel syndrome She also has lap band. Urine shows E coli and enterococcus faecalis but she has no urinary symptoms. Review of Systems 2 Review of Systems: Yes all other systems are reviewed and are negative [facility] Past Medical History Medical History C. difficile colitis Tremor Diplopia History of small bowel obstruction Hx of colon cancer, stage III Bipolar 1 disorder CAD (coronary artery disease) Persistent atrial fibrillation Essential hypertension Hyperlipidemia Personal history of nicotine dependence Unsteady gait Thrombocytopenia Anemia Cervical radiculopathy due to degenerative joint disease of spine History of radius fracture Degenerative disc disease, cervical Acquired deafness of left ear Family History Family History Sister Substance use disorder Insulin dependent type 1 diabetes mellitus Mother Colon cancer Breast cancer Coronary artery disease High cholesterol Essential hypertension Father Heart disease Brother Heart disease Family history: reviewed and not pertinent Surgical History Surgical History Status post coronary artery bypass graft History of coronary artery bypass graft x 2 (~2018) History of cardiac catheterization History of partial colectomy (~2015) History of reversal of ileostomy History of resection of small bowel (~2020) History of laparoscopic adjustable gastric banding (~2004) History of laparoscopic cholecystectomy (~2003) History of parotidectomy (~2014) History of cervical discectomy (~2013) History of surgery on right wrist History of colonoscopy History of esophagogastroduodenoscopy (EGD) History of appendectomy (~2003) History of tonsillectomy History of bunionectomy Social History Social History Household Members: None Housing: Apartment Do you presently have visiting nurse or other home services: No Unable to assess alcohol history related to: Unable to respond Alcohol intake: never Patient Tobacco Use Status: Former Tobacco user Tobacco use type: Cigarette Years Smoked: (former smoker - onset 30yo, 1ppd x 33yrs, 30pyh, quit 11/2018) Smoked in Last 30 Days: No e-Cigarette/Vaping Use: Never Used Second Hand Smoke Exposure: No Use of substances other than those prescribed or required for medical reasons: No Currently Displaying Signs/Symptoms of Drug Intoxication Withdrawal: No Have you been hit, kicked, punched, or otherwise hurt by someone within the past year? If so, by whom?: No Do you feel safe in your current relationship?: No Current Relationship Is there a partner from a previous relationship who is making you feel unsafe now?: No Are you made to feel afraid or neglected: No Advance Directives: Yes Advance Directives on File: Yes Advance Directives Date on File: 03/02/24 Do you have a plan to hurt others: No Plan Recently lost weight without trying: Unsure Eating poorly because of decreased appetite: No Nutrition Risks: No Nutritional Risk Patient : No service: No Current occupational status: retired Cognitive needs: No Hearing needs: No Vision needs: Yes Meds Allergies Allergy/AdvReac Type Severity Reaction Status Date / Time No Known Allergies Allergy Verified 10/02/24 18:20 Active Medications: Current Medications Acetaminophen (Acetaminophen 325 Mg Tablet) 650 mg PO Q6H PRN PRN Reason: Pain, Mild (Pain Scale 1-3), fever or headache Albuterol Sulfate (Albuterol Sulfate 90 Mcg 8 Gm Inhaler) 1 puff INHALE RQ6H PRN PRN Reason: Wheezing Albuterol Sulfate (Albuterol Sulfate (0.083%) 2.5 Mg/3 Ml Vial.Neb) 2.5 mg INHALE Q6H PRN PRN Reason: dyspnea Atorvastatin Calcium (Atorvastatin Calcium 80 Mg Tablet) 80 mg PO DAILY [facility] Benzocaine (Throat Lozenge, Medicated Lozenge) 1 lozenge MUCOUS MEM Q2H PRN PRN Reason: Sore Throat Last Admin: 10/04/24 12:28 Dose: 1 lozenge Calcium Carbonate (Calcium Carbonate 750 Mg Tab.Chew) 750 mg PO Q4H PRN PRN Reason: Heartburn Carbamazepine (Carbamazepine 100 Mg Tab.Chew) 150 mg PO TID [facility] Last Admin: 10/05/24 20:48 Dose: 150 mg Escitalopram Oxalate (Escitalopram Oxalate 20 Mg Tablet) 20 mg PO DAILY [facility] Lactated Ringer's (Lr) 1,000 mls @ 60 mls/hr IVCONT .[id number] [facility] Last Admin: 10/05/24 16:53 Dose: 100 mls/hr Magnesium Hydroxide (Milk Of Magnesia 30 Ml Oral.Susp) 30 ml PO DAILY PRN PRN Reason: Constipation Melatonin (Melatonin 3 Mg Tablet) 6 mg PO BEDTIME PRN PRN Reason: Insomnia Metoprolol Tartrate (Metoprolol Tartrate 5 Mg/5 Ml Vial) 5 mg IVPUSH Q6H PRN; Protocol PRN Reason: hr>100 Last Admin: 10/04/24 11:42 Dose: 5 mg Metoprolol Tartrate (Metoprolol Tartrate 25 Mg Tablet) 25 mg PO BID [facility]; Protocol Last Admin: 10/05/24 20:48 Dose: 25 mg Morphine Sulfate (Morphine Sulfate 2 Mg/Ml Cartridge) 2 mg IVPUSH Q2H PRN; Protocol PRN Reason: Pain, Severe (Pain Scale 7-10) Last Admin: 10/04/24 07:49 Dose: 2 mg Ondansetron HCl (Ondansetron Hcl 4 Mg/2 Ml Vial) 4 mg IVPUSH Q6H PRN PRN Reason: Nausea and Vomiting Last Admin: 10/04/24 16:01 Dose: 4 mg Quetiapine Fumarate (Quetiapine Fumarate 100 Mg Tablet) 100 mg PO BEDTIME [facility] Sodium Chloride (0.9 % Sodium Chloride Flush 3 Ml Syringe) 3 ml IVFLUSH QSHIFT [facility] Last Admin: 10/05/24 16:53 Dose: 3 ml Temazepam (Temazepam 15 Mg Capsule) 15 mg PO BEDTIME [facility] Last Admin: 10/04/24 20:54 Dose: 15 mg Vancomycin HCl (Vancomycin Hcl Oral Solution 125 Mg/5 Ml Soln.Recon) 125 mg PO Q6H [facility] Last Admin: 10/05/24 18:41 Dose: 125 mg Home Medications ?Medication ?Instructions ?Recorded ?Confirmed ?Last Taken ?Type acetaminophen 325 mg tablet 650 mg PO Q8H PRN ARTHRITIS PAIN 01/09/24 10/03/24 05/15/24 History aspirin 81 mg tablet,delayed 81 mg PO DAILY 01/09/24 10/03/24 10/02/24 History release citalopram 40 mg tablet 40 mg PO DAILY 01/09/24 10/03/24 10/02/24 History ammonium lactate 12 % topical cream 1 appl topical BID PRN Rash 02/06/24 10/03/24 05/15/24 History multivitamin 1 tab PO DAILY 02/28/24 10/03/24 10/02/24 History lactobacillus combination no.4 3 3,000 mmu cells PO DAILY@0800 04/10/24 10/03/24 10/02/24 History billion cell capsule (Probiotic) temazepam 15 mg capsule 15 mg PO BEDTIME 05/16/24 10/03/24 09/30/24 History albuterol sulfate 2.5 mg/3 mL 2.5 mg inhalation Q6H PRN dyspnea 10/03/24 10/03/24 Unknown History (0.083 %) solution for nebulization [id number] 2 cap PO BID 10/03/24 10/03/24 10/02/24 History 36,000-114,000-180,000 unit capsule,delay rel (Creon) midodrine 5 mg tablet 5 mg PO TID PRN Low BP 10/03/24 10/03/24 Unknown History Physical Exam 2 Vital Signs: Vital Signs: Last Vital Signs Temp 98.9 F 10/05/24 19:32 Pulse 106 H 10/05/24 19:32 Resp 16 10/05/24 19:32 BP 158/76 H 10/05/24 19:32 Pulse Ox 95 10/05/24 19:32 O2 Del Method Room Air 10/05/24 19:32 BMI result Body Mass Index 37.0 Const: General: cooperative HEENT: Head: Yes normal to inspection Face and sinus: Yes normal facial exam Mouth: Normal oral and palatal mucosa present Teeth and gingiva: d entition normal Eyes: General: appearance normal, both eyes and all related structures P upils: Equal, round and reactive pupils present Resp: Effort & Inspection: normal respiratory effort Cardio: Rate: regular rate Rhythm: regular rhythm GI: Other: mild abdominal discomfort Palpation (GI): Soft to palpation and nontender : General: Yes no CVA tenderness Back/Spine/Pelvis: Back: no CVA tenderness Skin: General skin exam: no rashes or lesions noted Neuro: General: moves all extremities Cranial nerves: Yes Equal, round and reactive pupils present Extrem: General: Yes normal to inspection Psych: Appearance: grossly normal Results Labs 10/05/24 08:29 10/05/24 08:29 Labs: Short CBC 10/05/24 Range/Units 08:29 WBC 6.5 (4.8-10.8) X10*3/uL Hgb 11.8 L (12.0-16.0) g/dl Hct 35.0 L (37.0-47.0) % Plt Count 154 L (160-400) X10*3/uL BMP 10/05/24 08:29 Sodium 137 Potassium 4.7 Chloride 103 Carbon Dioxide 24 BUN 10 Creatinine 0.73 Calcium 8.7 Microbiology Microbiology Results: Microbiology 10/02/24 Unknown Urine clean catch - Clean Catch Midstream Urine Culture - Final Escherichia coli Enterococcus faecalis Assessment and Plan (1) C. difficile colitis: Status: Acute (2) Small bowel obstruction: Status: Acute Plan She has symptomatic Cdiff. Toxin is negative but PCR positive and symptomatic so less likely colonization and more likely active disease. There is no signs of urinary infection and likely bacteriuria is colonization. Would give po Vancomycin 125 mg qid for 10 days likely. No antibiotics for urine
[2024-10-05] MEDS: Temazepam 15 MG CAPSULE PO (22:06)
[2024-10-05] MEDS: QUEtiapine Fumarate 100 MG TABLET PO (22:06)
[2024-10-05 23:26] VITALS: BP 94/57; PULSE 101; RESP 17; TEMP 36.4; O2SAT 95
[2024-10-06] VITALS (8 sets, daily range): BP systolic 103–134; BP diastolic 69–87; PULSE 84–124; RESP 17–114; TEMP 36.2–36.6; O2SAT 93–98
--- NOTE | 2024-10-06 | ECG_ITS ---
Test Reason : tachycardia Blood Pressure : / mmHG Vent. Rate : 098 BPM Atrial Rate : 000 BPM P-R Int : 000 ms QRS Dur : 084 ms QT Int : 342 ms P-R-T Axes : 000 -57 -08 degrees QTc Int : 436 ms Atrial fibrillation Left axis deviation Inferior infarct , age undetermined Abnormal ECG When compared with ECG of 02-OCT-2024 18:52, Left anterior fascicular block is no longer Present QT has shortened Referred By[facility] Electronically Signed By:SHELIA DELGADILLO MD
[2024-10-06] MEDS: vancomycin HCL Oral Solution 125 MG/5 ML SOLN.RECON PO ×4 (00:05→18:10)
--- NOTE | 2024-10-06 09:54 | P.PNGS_ITS ---
Subjective Subjective Date of Service: 10/06/24 Interval history: Patient was doing well. She is tolerating her diet. She has had marked decrease in her loose stool. She has no abdominal pain or symptoms. She would like to know if she can be discharged home. Physical Exam 2 Vital Signs: Vital Signs: Last Vital Signs Temp 97.3 F 10/06/24 08:00 Pulse 120 H 10/06/24 08:00 Resp 18 10/06/24 08:00 BP 124/87 10/06/24 08:00 Pulse Ox 98 10/06/24 08:00 O2 Del Method Room Air 10/06/24 08:00 BMI result Body Mass Index 37.0 GI: Other: Abdomen is soft, moderately corpulent, benign Objective Data Active Medications Acetaminophen (Acetaminophen 325 Mg Tablet) 650 mg PO Q6H PRN PRN Reason: Pain, Mild (Pain Scale 1-3), fever or headache Albuterol Sulfate (Albuterol Sulfate 90 Mcg 8 Gm Inhaler) 1 puff INHALE RQ6H PRN PRN Reason: Wheezing Albuterol Sulfate (Albuterol Sulfate (0.083%) 2.5 Mg/3 Ml Vial.Neb) 2.5 mg INHALE Q6H PRN PRN Reason: dyspnea Atorvastatin Calcium (Atorvastatin Calcium 80 Mg Tablet) 80 mg PO DAILY [facility] Benzocaine (Throat Lozenge, Medicated Lozenge) 1 lozenge MUCOUS MEM Q2H PRN PRN Reason: Sore Throat Last Admin: 10/04/24 12:28 Dose: 1 lozenge Documented By: JENNY Calcium Carbonate (Calcium Carbonate 750 Mg Tab.Chew) 750 mg PO Q4H PRN PRN Reason: Heartburn Carbamazepine (Carbamazepine 100 Mg Tab.Chew) 150 mg PO TID [facility] Last Admin: 10/05/24 20:48 Dose: 150 mg Documented By: LAINE Escitalopram Oxalate (Escitalopram Oxalate 20 Mg Tablet) 20 mg PO DAILY [facility] Lactated Ringer's (Lr) 1,000 mls @ 60 mls/hr IVCONT .[id number] [facility] Last Admin: 10/05/24 16:53 Dose: 100 mls/hr Documented By: JENNY Magnesium Hydroxide (Milk Of Magnesia 30 Ml Oral.Susp) 30 ml PO DAILY PRN PRN Reason: Constipation Melatonin (Melatonin 3 Mg Tablet) 6 mg PO BEDTIME PRN PRN Reason: Insomnia Metoprolol Tartrate (Metoprolol Tartrate 5 Mg/5 Ml Vial) 5 mg IVPUSH Q6H PRN; Protocol PRN Reason: hr>100 Last Admin: 10/04/24 11:42 Dose: 5 mg Documented By: NAVIN Comments: HR128 Metoprolol Tartrate (Metoprolol Tartrate 25 Mg Tablet) 25 mg PO BID [facility]; Protocol Last Admin: 10/05/24 20:48 Dose: 25 mg Documented By: LAINE Morphine Sulfate (Morphine Sulfate 2 Mg/Ml Cartridge) 2 mg IVPUSH Q2H PRN; Protocol PRN Reason: Pain, Severe (Pain Scale 7-10) Last Admin: 10/04/24 07:49 Dose: 2 mg Documented By: JENNY Ondansetron HCl (Ondansetron Hcl 4 Mg/2 Ml Vial) 4 mg IVPUSH Q6H PRN PRN Reason: Nausea and Vomiting Last Admin: 10/04/24 16:01 Dose: 4 mg Documented By: JENNY Quetiapine Fumarate (Quetiapine Fumarate 100 Mg Tablet) 100 mg PO BEDTIME [facility] Last Admin: 10/05/24 22:06 Dose: 100 mg Documented By: LAINE Sodium Chloride (0.9 % Sodium Chloride Flush 3 Ml Syringe) [address] [facility] Last Admin: 10/06/24 00:06 Dose: Not Given Documented By: LAINE Non-Admin Reason: IV Running Temazepam (Temazepam 15 Mg Capsule) 15 mg PO BEDTIME [facility] Last Admin: 10/05/24 22:06 Dose: 15 mg Documented By: LAINE Vancomycin HCl (Vancomycin Hcl Oral Solution 125 Mg/5 Ml Soln.Recon) 125 mg PO Q6H [facility] Last Admin: 10/06/24 05:47 Dose: 125 mg Documented By: LAINE Labs 10/05/24 08:29 10/05/24 08:29 Microbiology Microbiology Results: Microbiology 10/02/24 Unknown Urine Culture - Final Urine clean catch - Clean Catch Midstream Escherichia coli Enterococcus faecalis Procedures Date of Service Date of Service: 10/06/24 Progress Note: A&P Assessment and plan (1) C. difficile colitis: Status: Acute Plan Current plan is discharge home with discharge instructions reviewed with the patient as well as to be printed out. Patient will follow up with Dr. Regalado. Time Spent With Patient Time: Total time managing care of this patient today ____ minutes. Quality Stroke Does the patient have a stroke diagnosis?: No VTE Prior VTE?: No VTE Risk Level:: Surgical - low VTE Device Contraindication: N/A - Device Ordered VTE Drug Contraindication: Treatment Not Indicated
[2024-10-06] MEDS: Atorvastatin Calcium 80 MG TABLET PO (10:20)
[2024-10-06] MEDS: Escitalopram Oxalate 20 MG TABLET PO (10:20)
[2024-10-06] MEDS: Metoprolol Tartrate 25 MG TABLET PO ×3 (10:20→21:54)
[2024-10-06] MEDS: 0.9 % Sodium Chloride Flush 3 ML SYRINGE IVFLUSH (10:21)
[2024-10-06] MEDS: carBAMazepine 100 MG TAB.CHEW 150 MG PO ×3 (10:21→21:54)
[2024-10-06] MEDS: Lactated Ringers 1,000 ML 100 ML IVCONT (10:29)
--- NOTE | 2024-10-06 10:34 | MHC.CM.PN ---
PT TO DC HOME TODAY WITH NO SERVICES SON TO TRANSPORT
[2024-10-06] MEDS: Rivaroxaban 20 MG TABLET PO (18:16)
[2024-10-06] MEDS: QUEtiapine Fumarate 100 MG TABLET PO (21:54)
[2024-10-06] MEDS: Temazepam 15 MG CAPSULE PO (21:54)
[2024-10-07] VITALS: BP 109/61; PULSE 105; RESP 17; TEMP 36.2; O2SAT 95
[2024-10-07] MEDS: vancomycin HCL Oral Solution 125 MG/5 ML SOLN.RECON PO ×3 (00:12→11:40)
[2024-10-07 03:31] VITALS: BP 102/68; PULSE 78; RESP 16; TEMP 36.1; O2SAT 95
--- NOTE | 2024-10-07 07:24 | HO.PM.IMPN ---
Subjective Subjective Date of Service: 10/07/24 Interval History: Discharged cancelled yesterday d/t tacycardia, uncontrolled AFIB HR is now better and her symptoms and she has no new symptoms Physical Exam Vital Signs: Vital Signs: Last Vital Signs Temp 96.9 F 10/07/24 03:31 Pulse 78 10/07/24 03:31 Resp 16 10/07/24 03:31 BP 102/68 10/07/24 03:31 Pulse Ox 95 10/07/24 03:31 O2 Del Method Room Air 10/07/24 03:31 BMI result Body Mass Index 37.0 Const: Other: General: AO X 3, no acute distress Resp: CTA bilateral CVS: S1,S2,RRR GI: +BS, NT, no distention Skin: No rash Neuro: motor grossly intact Psych: appropriate affect Objective Data Active Medications Acetaminophen (Acetaminophen 325 Mg Tablet) 650 mg PO Q6H PRN PRN Reason: Pain, Mild (Pain Scale 1-3), fever or headache Albuterol Sulfate (Albuterol Sulfate 90 Mcg 8 Gm Inhaler) 1 puff INHALE RQ6H PRN PRN Reason: Wheezing Albuterol Sulfate (Albuterol Sulfate (0.083%) 2.5 Mg/3 Ml Vial.Neb) 2.5 mg INHALE Q6H PRN PRN Reason: dyspnea Atorvastatin Calcium (Atorvastatin Calcium 80 Mg Tablet) 80 mg PO DAILY [facility] Last Admin: 10/06/24 10:20 Dose: 80 mg Documented By: KATHY Benzocaine (Throat Lozenge, Medicated Lozenge) 1 lozenge MUCOUS MEM Q2H PRN PRN Reason: Sore Throat Last Admin: 10/04/24 12:28 Dose: 1 lozenge Documented By: JENNY Calcium Carbonate (Calcium Carbonate 750 Mg Tab.Chew) 750 mg PO Q4H PRN PRN Reason: Heartburn Carbamazepine (Carbamazepine 100 Mg Tab.Chew) 150 mg PO TID [facility] Last Admin: 10/06/24 21:54 Dose: 150 mg Documented By: LAINE Escitalopram Oxalate (Escitalopram Oxalate 20 Mg Tablet) 20 mg PO DAILY [facility] Last Admin: 10/06/24 10:20 Dose: 20 mg Documented By: KATHY Magnesium Hydroxide (Milk Of Magnesia 30 Ml Oral.Susp) 30 ml PO DAILY PRN PRN Reason: Constipation Melatonin (Melatonin 3 Mg Tablet) 6 mg PO BEDTIME PRN PRN Reason: Insomnia Metoprolol Tartrate (Metoprolol Tartrate 50 Mg Tablet) 50 mg PO BID LAURA; Protocol Morphine Sulfate (Morphine Sulfate 2 Mg/Ml Cartridge) 2 mg IVPUSH Q2H PRN; Protocol PRN Reason: Pain, Severe (Pain Scale 7-10) Last Admin: 10/04/24 07:49 Dose: 2 mg Documented By: JENNY Ondansetron HCl (Ondansetron Hcl 4 Mg/2 Ml Vial) 4 mg IVPUSH Q6H PRN PRN Reason: Nausea and Vomiting Last Admin: 10/04/24 16:01 Dose: 4 mg Documented By: JENNY Quetiapine Fumarate (Quetiapine Fumarate 100 Mg Tablet) 100 mg PO BEDTIME [facility] Last Admin: 10/06/24 21:54 Dose: 100 mg Documented By: LAINE Rivaroxaban (Rivaroxaban 20 Mg Tablet) 20 mg PO DAILY@1700 [facility] Last Admin: 10/06/24 18:16 Dose: 20 mg Documented By: KATHY Sodium Chloride (0.9 % Sodium Chloride Flush 3 Ml Syringe) 3 ml IVFLUSH QSHIFT [facility] Last Admin: 10/07/24 00:13 Dose: Not Given Documented By: LAINE Non-Admin Reason: No Access Temazepam (Temazepam 15 Mg Capsule) 15 mg PO BEDTIME [facility] Last Admin: 10/06/24 21:54 Dose: 15 mg Documented By: LAINE Vancomycin HCl (Vancomycin Hcl Oral Solution 125 Mg/5 Ml Soln.Recon) 125 mg PO Q6H [facility] Last Admin: 10/07/24 05:47 Dose: 125 mg Documented By: LAINE Labs 10/05/24 08:29 10/05/24 08:29 Assessment and Plan (1) Small bowel obstruction: Status: Acute (2) Persistent atrial fibrillation: Status: Chronic Plan 68-year-old female with a past medical history significant recurrent small-bowel obstructions, multiple previous abdominal, cancer in 2017 status post sigmoid resection, chemotherapy, ileostomy with reversal, history of gastric band, mild aortic stenosis, hypertension, previous smoking history, CAD s/p CABG x2 in 2019, GERD, bipolar, and persistent AFib on Xarelto, who presented to the ED with abdominal pain and nausea. Found to have a a small-bowel obstruction and placed on NG tube for decompression. SBO--managed conservatively and resolved. chronic a fib - rate is now controlled. continue metoprolol at adjusted dose of 50 mg twice daily continue xarelto follow up on outpatient basis with cardiologys Cdif--started on Vanco for 10 to 14 days +UA with culture showing E. Faecacium and resistant e coli -no reported symptoms, likely colonization and no indication for Abx which could make C dif worse HTN - continue metoprolol CAD/hx CABG in 2019 - can resume ASA - echo 03/07 with EF >70%, mild , severe mitral annular calcification, mild pulmonary HTN prolonged QTc--resolved on repeat ECG bipolar - continue carbamazepine and seroquel - dvt--xarelto From medical standpoint, ok to discharge today Quality Stroke Does the patient have a stroke diagnosis?: No VTE Prior VTE?: No VTE Risk Level:: Surgical - low VTE Device Contraindication: N/A - Device Ordered VTE Drug Contraindication: Treatment Not Indicated
[2024-10-07 08:00] VITALS: BP 130/76; PULSE 115; RESP 17; TEMP 36.5; O2SAT 95
[2024-10-07 08:43] VITALS: BP 130/76; PULSE 115
[2024-10-07] MEDS: Atorvastatin Calcium 80 MG TABLET PO (08:43)
[2024-10-07] MEDS: carBAMazepine 100 MG TAB.CHEW 150 MG PO (08:43)
[2024-10-07] MEDS: Escitalopram Oxalate 20 MG TABLET PO (08:43)
[2024-10-07] MEDS: Metoprolol Tartrate 50 MG TABLET PO (08:43)
[2024-10-07 11:35] VITALS: PULSE 84
--- NOTE | 2024-10-07 11:36 | PC.NURSE ---
pt on tele with HR between 75-95, h/o afib, per Dr. Luz Maria smith to remove tele and discharge patient.
--- NOTE | 2024-10-09 10:21 | PM.DS ---
DS: Providers Provider Date of Service: 10/07/24 Date of admission: 10/03/24 00:34 Date of discharge: 10/07/24 Primary care physician: Molly Mcgowan MD Attending physician on admission: Ryan Regalado Consults: 10/03/24 07:55 Consult to Hospitalist Routine Comment: Consulting Provider: [facility] Reason For Exam: HTN, CAD 10/04/24 21:01 Consult to Infectious Diseases Routine Consulting Provider: [facility] Reason for consultation: cdiff 10/05/24 11:37 Consult to Infectious Diseases Routine Consulting Provider: [facility] Reason for consultation: ? cdif, and uti? Attending physician on discharge: Hu Christy DS: Diagnosis Discharge Diagnosis (1) Small bowel obstruction: Status: Acute DS: Summary Hospital Course Hospital Course: HPI AT ADMISSION: Deidre To is a 68 year old femalewith multiple previous abdominal surgeries, admitted this last night for abdominal pain and nausea. She says that this started about 3 days ago. She describes the pain as diffuse. She has had been admitted here before for similar problems with note of small bowel obstruction. She used to live in [place] but has moved here to be closer to her son who now takes care of her. She says that she has had maybe 7 admissions in the hospital for small bowel obstruction since her surgeries. She says that she has NG tube each time and this normally resolves after a few days She has a history of sigmoid resection for colon cancer in 2017 done in [place]. She says she had chemotherapy after that. She had an ileostomy at that time as well and she had this reversed eventually. She has a history of cholecystectomy. She has a gastric band in place. She has a history of coronary disease and had 2 vessel bypass 5 years ago. She is on Xarelto for atrial fibrillation. CT scan findings suggestive of small bowel obstruction. There is note of air in the colon. There appears to be a transition point in the mid-abdomen. She also has edema of the colon and transverse colon. She currently states that her abdominal pain is still present and comes in waves. She describes dry heaving. She says she has noted small amount of flatus last night. HOSPITAL COURSE: She was admitted to the surgical service for further treatment of the SBO possibly secondary to adhesions or anastomotic stricture. NGT was inserted. Xarelto was held for possible surgical intervention. C diff was ordered. Hospitalist service was consulted for medical comorbities. Her c diff PCR came back positive. She was started on PO vanco via the NGT. She improved symptomatically the following day and began to pass flatus. Her NGT output was monitored and remained scant throughout the day and was removed on HD #1. She was advanced to clear liquids. ID was consulted who felt C was active and recommended po Vancomycin 125 mg qid for 10 days. Patient's urine culture was positive for E coli and Enterococcus faecalis however she was asymptomatic and bacteriuria felt to be colonization, therefore no abx were given for this. She continued to improve symptomatically and her loose stools improved. Xarelto was resumed. Her diet was advanced. She had persistent tachycardia and her metoprolol was increased to 50mg PO BID with outpatient cardiology f/u. On the day of discharge, she was tolerating a solid diet, she had loose stools but improved. She was ambulating without difficulty. Her abdomen was benign and soft, NTND. She was hemodynamically stable with controlled HR. She was discharged to home on 10/07/24 on PO vancomycin. She is to follow up with Dr. Regalado in the office in 1 week. She is to follow up with cardiology upon discharge. Status at Discharge Functional status at discharge: independent ambulation Overall status at discharge: patient is progressing back to baseline Time Attestation Discharge Coordination Time (in mins): 40 Quality: Safe Use of Opioids Does Pt have an Active Cancer Diagnosis on the Problem List?: No Quality: Stroke Does the patient have a stroke diagnosis?: No Physical Exam Vital Signs: Vital Signs: Last Vital Signs Temp 97.7 F 10/07/24 08:00 Pulse 84 10/07/24 11:35 Resp 17 10/07/24 08:00 BP 130/76 10/07/24 08:43 Pulse Ox 95 10/07/24 08:00 O2 Del Method Room Air 10/07/24 08:00 BMI result Body Mass Index 37.0 Const: General: comfortable, no acute distress and alert Orientation/consciousness: patient oriented x3 Resp: Effort & Inspection: normal respiratory effort GI: Inspection: No distended Palpation (GI): Soft to palpation and nontender Neuro: General: patient oriented x3 and moves all extremities DS: Data Data Completed and Pending Completed studies during hospitalization [Text1]: Procedures Insertion of Infusion Device into Right Basilic Vein, Percutaneous Approach (02/28/24) Discharge Plan Discharge Anticipated Discharge Date/Time: 10/07/24 11:34 Patient Disposition: Home, Self-Care Discharge Diagnosis: partial small bowel osbtruction; C diff colitis Referrals: Molly Mcgowan MD [Primary Care Provider] - 1 Week Ryan Regalado MD [Physician] - 1 Week Discharge Medications: New vancomycin [Vancocin] 125 mg capsule 125 mg PO QID Qty: 36 0RF metoprolol tartrate 50 mg Tablet 50 mg PO BID Qty: 180 0RF Protocol: Hold for SBP/HR < HOLD for SBP < : 90 HOLD for HR < : 60 Continued nystatin 100,000 unit/gram powder 1 appl topical DAILY PRN (Reason: rash) Qty: 30 0RF famotidine 40 mg tablet 40 mg PO DAILY Qty: 90 1RF Xarelto 20 mg tablet 20 mg PO DAILY@1700 Qty: 90 1RF Rx Instructions: must administer with evening meal temazepam 15 mg capsule 15 mg PO BEDTIME midodrine 5 mg tablet 5 mg PO TID PRN (Reason: Low BP) albuterol sulfate 2.5 mg /3 mL (0.083 %) solution for nebulization 2.5 mg inhalation Q6H PRN (Reason: dyspnea) Creon 36,000-114,000- 180,000 unit capsule,delayed release(DR/EC) 2 cap PO BID acetaminophen 325 mg Tablet 650 mg PO Q8H PRN (Reason: ARTHRITIS PAIN) aspirin 81 mg Tablet,Delayed Release (Dr/Ec) 81 mg PO DAILY Probiotic 3 billion cell capsule 3,000 mmu cells PO DAILY@0800 Rx Instructions: administer with a meal multivitamin Tablet 1 tab PO DAILY quetiapine 100 mg Tablet 100 mg PO BEDTIME Qty: 90 0RF carbamazepine 100 mg Tablet,Chewable 150 mg PO TID Qty: 150 0RF cholecalciferol (vitamin D3) 50 mcg (2,000 unit) capsule 50 mcg PO DAILY Qty: 90 3RF atorvastatin 80 mg tablet 80 mg PO DAILY Qty: 90 3RF ammonium lactate 12 % cream 1 appl topical BID PRN (Reason: Rash) Rx Instructions: APPLIED TO FEET citalopram 40 mg tablet 40 mg PO DAILY ondansetron 8 mg tablet,disintegrating 8 mg translingual Q8H PRN (Reason: Nausea And Vomiting) Qty: 60 6RF Discontinued metoprolol tartrate 25 mg tablet 12.5 mg PO BID 90 Days Qty: 90 3RF Discharge Orders: Discharge Order (Routine); Ordered 10/07/24 Ordered By: Hu Christy Diet: Advance to usual diet Activity on Discharge: As tolerated Stand Alone Forms: Patient Portal Discharge page Print Language: Bolivian Care Plan Goals: Returned to baseline Health Concerns: C diff colitis History of small-bowel obstruction Atrial fibrillation Plan of Treatment: Oral vanco Resume home meds metoprolol dose changed to 50 mg twice daily Assessment: Doing well Patient Instructions: C. Diff (Clostridioides Difficile) Infection (DC) Discharge Date/Time: 10/07/24 13:27
== END 2024-10-07 13:27 | disposition home or self-care (01) | DRG 389 ==
LOC: HO.ED 10-03 00:47 → HO.EDOVER 10-03 00:47 → HO.S3 10-03 00:53
PROVIDERS: Physician Assistant; Admitting Provider Surgery; Emergency Provider Emergency Medicine Emergency Medical Services; PCP Internal Medicine; Visit Provider Surgery
DX: K56.51 Intestinal adhesions [bands], with partial obstruction (principal); A04.72 Enterocolitis due to Clostridium difficile, not specified as recurrent; I48.19 Other persistent atrial fibrillation; I25.10 Atherosclerotic heart disease of native coronary artery without angina pectoris; I35.0 Nonrheumatic aortic (valve) stenosis; I10 Essential (primary) hypertension; I27.20 Pulmonary hypertension, unspecified; R94.31 Abnormal electrocardiogram [ECG] [EKG]; R00.0 Tachycardia, unspecified; F31.9 Bipolar disorder, unspecified; Z85.038 Personal history of other malignant neoplasm of large intestine; Z98.84 Bariatric surgery status; Z95.1 Presence of aortocoronary bypass graft; Z87.891 Personal history of nicotine dependence; Z79.82 Long term (current) use of aspirin; Z79.899 Other long term (current) drug therapy
CPT/HCPCS: 36415; 71045; 74177; 80048; 80076; 81001; 83690; 83735; 85025; 85027; 87086; 87088; 87186; 87324; 87493; 93005; 99285; J1171; J2270; J2405; J3475; J7120; Q9967

== ENCOUNTER → 2024-10-02 18:32 | Outpatient (BNV) | payer MEDICARE, SELFPAY | PROVIDERS: Admitting Provider Surgery; Emergency Provider Emergency Medicine Emergency Medical Services; PCP Internal Medicine; Visit Provider Internal Medicine Cardiovascular Disease | DX: R07.9 Chest pain, unspecified (principal); I48.91 Unspecified atrial fibrillation; R94.31 Abnormal electrocardiogram [ECG] [EKG] | CPT/HCPCS: 93010 ==

== ENCOUNTER 2024-10-03 00:34 | Outpatient (BNV) | payer MEDICARE, SELFPAY | END 2024-10-06 14:31 | PROVIDERS: Admitting Provider Surgery; Emergency Provider Emergency Medicine Emergency Medical Services; PCP Internal Medicine; Visit Provider Internal Medicine Cardiovascular Disease | DX: R00.0 Tachycardia, unspecified (principal); I48.91 Unspecified atrial fibrillation; R94.31 Abnormal electrocardiogram [ECG] [EKG] | CPT/HCPCS: 93010 ==

== ENCOUNTER 2024-10-03 00:34 | Outpatient (BNV) | payer MEDICARE, SELFPAY | END 2024-10-03 15:37 | PROVIDERS: Admitting Provider Surgery; Emergency Provider Emergency Medicine Emergency Medical Services; PCP Internal Medicine; Visit Provider Radiology Diagnostic Radiology | DX: R11.0 Nausea (principal); Z97.8 Presence of other specified devices | CPT/HCPCS: 71045 ==

== ENCOUNTER → 2024-10-03 00:34 | Outpatient (BNV) | payer MEDICARE, SELFPAY | PROVIDERS: Admitting Provider Surgery; Emergency Provider Emergency Medicine Emergency Medical Services; PCP Internal Medicine; Visit Provider Physician Assistant | DX: I48.19 Other persistent atrial fibrillation (principal); I25.10 Atherosclerotic heart disease of native coronary artery without angina pectoris; I35.0 Nonrheumatic aortic (valve) stenosis; K56.609 Unspecified intestinal obstruction, unspecified as to partial versus complete obstruction; E66.9 Obesity, unspecified | CPT/HCPCS: 99222; 99232; 99499 ==

== ENCOUNTER → 2024-10-03 00:34 | Outpatient (BNV) | payer MEDICARE, SELFPAY | PROVIDERS: Admitting Provider Surgery; Emergency Provider Emergency Medicine Emergency Medical Services; PCP Internal Medicine; Visit Provider Surgery | DX: K56.609 Unspecified intestinal obstruction, unspecified as to partial versus complete obstruction (principal) | CPT/HCPCS: 99222; 99232; 99239; 99499 ==

== ENCOUNTER → 2024-10-03 00:34 | Outpatient (BNV) | payer MEDICARE, SELFPAY | PROVIDERS: Admitting Provider Surgery; Emergency Provider Emergency Medicine Emergency Medical Services; PCP Internal Medicine; Visit Provider Internal Medicine | DX: A04.72 Enterocolitis due to Clostridium difficile, not specified as recurrent (principal); K56.609 Unspecified intestinal obstruction, unspecified as to partial versus complete obstruction | CPT/HCPCS: 99222 ==

== ENCOUNTER → 2024-10-19 09:37 | Outpatient (REF) | payer MEDICARE, SELFPAY ==
--- NOTE | 2024-10-19 09:41 | HM_ITS ---
* Total monitoring time 3 days. * Underlying rhythm is atrial fibrillation with an average rate of 75/Min. * Rare ventricular ectopy. Very brief runs, longest 3 beats. * No significant pauses or high-grade AV blocks. * No patient markers or diary events. MTDD
--- OUTSIDE RECORDS SUMMARY | 2024-10-24 07:03 | XMS_ITS ---
[facility] Organization [facility] Address [address] [place] [id number] Care Team Providers Care Asset Specialist Name Role Phone Juan M WADDELL, Molly Jensen Primary Care Provider Un available Black, Carli Unavailable [phone] REASON FOR VISIT No Show Encounters Encounter Location Date Provider Diagnosis [facility] [address] [place] [address] 05/10/2024 Carli Black Plan Of Treatment No Information Progress Notes * Deidre TODOB: (68 yo F)Acc No.[id number]:05/10/2024 Patient:?YousufrEinDeidre :1955???Age:68 Y???Sex:Female Address:[address] [place] [address] [place] [address] * true * Date:? Generated for Radhai david/Yasmeen/eTransmitting on:?10/24/2024 07:03 AM EST
--- OUTSIDE RECORDS SUMMARY | 2024-10-24 07:04 | XMS_ITS ---
Author Organization [facility] Address [address] [place] [id number] Care Team Providers Care Insole Channeler Name Role Phone Juan M WADDELL, Molly Jensen Primary Care Provider Un available Carli Jenkins [phone] Encounters Encounter Location Date Provider Diagnosis [address] [address] 05/10/2024 Carli Jenkins Plan Of Treatment No Information Progress Notes * Deidre TODOB: (68 yo F)Acc No.[id number]:05/10/2024 Progress Note Patient:Deidre SMILEY Provider:?Carli Jenkins DPM :1955???Age:68 Y???Sex:Female D ate:05/10/2024 Address:[address] [place] [id number] Pcp:Sumanth Orozco Subjective: * Chief Complaints: * ??? * Medical History:? Objective: * Vitals:? Assessment: Plan: * Treatment: * Images: * The named appointment provid er may or may not be the originator of this progress note, and it is not deemed complete until electronically signed by the appointment provider. Sign off status: Pending * Provider:?Carli Jenkins DPM Date:?2023 Generated for Steve hernandez/Yasmeen/eTransmitting on:?10/24/2024 07:03 AM EST
--- OUTSIDE RECORDS SUMMARY | 2024-10-24 07:04 | XMS_ITS | Patient Health Record ---
Author Organization [facility] [place] Address [address] [place] [address] Care Team Providers Care Nurse Practitioner Adult Name Role Phone Juan M WADDELL, Molly Jensen Primary Care Provider Un available Black, Carli Unavailable [phone] Allergies No Known Allergies Reason For Referral No Information Medications Medication SIG (Take, Route, Frequency, Duration) Notes Start Date End Date Status Shelby 3 1000 MG 1 capsule Orally Thr ee times a day Active Multivitamin Active Tylenol Active Plavix 75 MG 1 tablet Orally Once a day Active Vitamin D 12.5 MCG/0.25ML 0.25 mL Orally Once a day Active Probiotic Active Furosemide 20 MG 1 tablet Orally Once a day Active Albuterol Sulfate Ac tive Citalopram Hydrobromide 40 MG 0.5 tablet Orally Once a day Active Famotidine 40 MG 1 tablet at bedtime Orally Once a day Active QUEtiapine Fumarate ER 200 MG 1 tablet in the evening Orally Once a day Active Metoprolol Succinate ER 25 MG 1 tablet Orally Once a day Active Temazepam 30 MG 1 capsule at bedtime as needed Orally Once a day Active carBAMazepine 200 MG 1 tablet Orally Twi ce a day Active Cyclobenzaprine HCl 10 MG 1 tablet at be dtime as needed Orally Once a day Active LORazepam 2 MG/ML 1 mL as needed Orall y Twice a day Active Atorvastatin Calcium 80 MG 1 tablet Oral ly Once a day Active Aspir-81 Active Ammonium Lactate 12 % 1 application Exte rnally Twice a day for 30 days Active Social History Tobacco Use: Social History Observation Description Date Details (start date - stop date) Former Smoker NA - NA Tobacco Use/Smoking Question Answer Notes Are you a: former smoker Additional Findings: Tobacco Non-User Current no n-smoker Alcohol Screen Question Answer Notes Did you have a drink containing alcohol in the p ast year? No Points 0 Interpretation Negative Tobacco use other than smoking: Question Answer Notes Are you an other tobacco user? 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 confirmed Problem Atherosclerosis of grayling artery of both lower extremities, with unspecified presence of clinical manifestation (I70.203) Active confirmed Vital Signs Height 5 ft 1 in in 01/26/2024 Weight 199 lbs 01/26/2024 BMI 37.6 kg/m2 01/26/2024 Procedures Procedure Date Ordered Date Performed Result Body Sit e 44672-NCCN SKIN LESIONS, 2 TO 4 01/26/2024 N/A G2227-YTAOZRIZ DYSTROPHIC NAILS ANY # 01/26/2024 N/A Encounters Encounter Location Date Provider Diagnosis [facility] [address] 01/26/2024 Carli Black Pain in right toe(s) M79.674 ; Pain in left toe(s) M79.675 ; Xerosis of skin L85.3 ; Drug-induced polyneuropathy G62.0 ; Adverse effect of antineoplastic and immunosuppressive drugs, initial encounter T45.1X5A ; Other hammer toe(s) (acquired), right foot M20.41 and Other hammer toe(s) (acquired), left foot M20.42 [facility] [address] [address] [facility] [address] [facility] [address] [address] 01/26/2024 Carlimita Jenkins [facility] [place] [address] [place] [address] 05/10/2024 Carli Jenkins Assessments Encounter Date Diagnosis (ICD Code) Assessment Notes Treatment Notes Treatment Clinical Notes Section Notes 01/26/2024 Pain in right toe(s) (ICD-10 - M79.674) 01/26/2024 Pain in left toe(s) (ICD-10 - M79.675) 01/26/2024 Xerosis of skin (ICD-10 - L85.3) 01/26/2024 Drug-induced polyneuropathy (ICD-10 - G62.0) 01/26/2024 Adverse effect of antineoplastic and immunosuppressive drugs, initial encounter (ICD-10 - T45.1X5A) 01/26/2024 Other hammer toe(s) (acquired), right foot (ICD-10 - M20.41) 01/26/2024 Other hammer toe(s) (acquired), left foot (ICD-10 - M20.42) Plan Of Treatment Pending Test Test Name Order Date 13007-JGXB SKIN LESIONS, 2 TO 4 01/26/20 24 P1332-UVBYXWOJ DYSTROPHIC NAILS ANY # Insurance Providers Payer Name Payer Address Payer Phone Subscriber Number Group Number Insured Name Patient Relationship to Insured Coverage Start Date Coverage End Date Medicare National [employer] [address] [place] [address] [id number] Deidre To Self - patient is the insured AARP Secondary to Medicare [address] [place] [address] [id number] Deidre To Self - patient is the insured Medical (General) History Medical History History ICD Code Arthritis Back,Hip,and Knee pain CAD (Cholesterol) Cancer Cataracts Depression Diverticulosis Gall bladder problems Headaches/Migraines Heart disease Hiatal hernia High blood pressure Menieres disease Numbness Psychiatric disorder Reflux ( GERD) ulcer Measles Mumps Chicken pox Joint implants/screws Replacement Heart Valves Transfusions Surgical History Surgery Date(Month/Year) heart surgery neck surgery colon cancer 06/2016 left foot 1996 Hospitalization History Reason Date(Month/Year) [facility] -fall 02/04
--- OUTSIDE RECORDS SUMMARY | 2024-10-24 07:04 | XMS_ITS ---
Author Organization [facility] Address [address] [facility] [place] [address] Care Team Providers Care Permaculture Designer Name Role Phone Juan M WADDELL, Molly Jensen Primary Care Provider Un available Black, Carli Unavailable [phone] REASON FOR VISIT Secondary Ins Encounters Encounter Location Date [facility] [address] [address] 01/26/2024 Carli Black Plan Of Treatment No Information Progress Notes * Deidre TODOB: (68 yo F)Acc No.[id number]:01/26/2024 Patient:?Yousuf Deidre :1955???Age:68 Y???Sex:Female Address:[address] [place] [address], [place] [address] * true * Date:? Generated for Steve hernandez/Yasmeen/eTransmitting on:?10/24/2024 07:04 AM EST
== END ==
LOC: HO.CARD 09:37
PROVIDERS: PCP Internal Medicine; Visit Provider Internal Medicine
DX: I48.19 Other persistent atrial fibrillation (principal)
CPT/HCPCS: 93242

== ENCOUNTER → 2024-10-19 09:41 | Outpatient (BNV) | payer MEDICARE, SELFPAY | PROVIDERS: PCP Internal Medicine; Visit Provider Internal Medicine | DX: I48.91 Unspecified atrial fibrillation (principal) | CPT/HCPCS: 93244 ==

== ENCOUNTER 2024-11-12 19:01 | Inpatient (IN) | payer MEDICARE, SELFPAY ==
--- NOTE | ~2024-11-12 | CT_ITS ---
CLINICAL HISTORY: abd pain, vomiting Exam: CT abdomen and pelvis with intravenous contrast. Comparison: October 02, 2024. Findings: CT abdomen: Emphysematous changes are seen within the lung bases. Additional areas of streaky density may be related to edema or atelectasis. Bones are osteopenic. No acute fracture identified. Dense calcification of the mitral valve and aortic root. Sternotomy wires are evident. Lap band device is again seen. This is looped along the gastroesophageal junction with port seen within the subcutaneous fat of the left midabdomen. Numerous collateral vessels are seen adjacent to the lap band device as before. Gallbladder is surgically absent. Heterogeneous attenuation of the liver with mild periportal edema. Nodularity along the periphery of the liver. No discrete hepatic mass lesions identified. There is narrowing of the extrahepatic portal vein to the level of the portal confluence. There is focal dilation of the level of the portal confluence as seen previously. Splenic vein and superior mesenteric vein are patent. However, numerous collateral vessels are identified including gastric and esophageal varices. Spleen, pancreas, adrenal glands, and kidneys are unchanged in appearance. Prominent distention of the stomach with fluid and air. Numerous fluid-filled dilated loops of small bowel with numerous small bowel air-fluid levels. Small-bowel small loops are dilated to 4.5 cm. No free air is seen. Diffuse mesenteric induration with small volume free fluid. CT pelvis: Wall thickening of the colon, especially of the distal sigmoid colon and rectum. Suture material is seen at the rectosigmoid junction. Less pronounced colonic wall thickening in the more proximal colon. However, there is no areas of sparing of the colon. Distal small bowel is decompressed to the level of anastomotic sutures in the right hemipelvis with dilation of the small bowel proximal to this. Scattered mesenteric induration small volume free pelvic fluid. Impression: 1. Findings indicative of at least a partial small bowel obstruction at the anastomotic sutures within the right lower quadrant. 2. Aggarwal colitis. Differential considerations include pseudomembranous colitis or ulcerative colitis. 3. Cirrhotic liver with narrowing of the extrahepatic portal vein and numerous collateral vessels. This document has been electronically signed by: Barrett Mancia MD on 11/12/2024 20:57:33
--- NOTE | ~2024-11-12 | XR_ITS ---
CLINICAL HISTORY: NG tube placement 1 view chest x-ray Comparison: 11/13/2024 Findings: Portions of the exam are obscured by overlying material. The lungs are clear. Heart size is normal. No acute fracture. IMPRESSION: 1. No acute findings. This document has been electronically signed by: Celestine Ayala MD on 11/14/2024 20:33:18
--- NOTE | ~2024-11-12 | XR_ITS ---
CLINICAL HISTORY: NGT Exam: AP portable chest x-ray. Comparison: CT of the abdomen and pelvis November 12, 2024 and chest x-ray October 03, 2024. Findings: Enteric sump tube has tip projected over the left aspect of the proximal to mid gastric body. Sternotomy wires are evident. Cardiac silhouette is borderline enlarged. Lap band device is seen at the gastroesophageal junction as on the patient's recent CT scan. Dense calcification of the mitral valve. Interstitial markings are prominent. However, no focal infiltrates or pleural effusion is identified. Spinal fusion hardware within the cervical spine. Impression: 1. Enteric sump tube as above. 2. Nonspecific interstitial prominence. This can be seen with mild edema, atelectasis, or interstitial lung disease. This document has been electronically signed by: Barrett Mancia MD on 11/13/2024 06:16:59
[2024-11-12 19:09] VITALS: BP 134/72; BP 150/88; PULSE 76; PULSE 88; RESP 16; TEMP 36.9; O2SAT 94; O2SAT 97; BMI 37.4
--- NOTE | 2024-11-12 19:09 | ECG_ITS ---
Test Reason : ABD PAIN Blood Pressure : / mmHG Vent. Rate : 094 BPM Atrial Rate : 300 BPM P-R Int : 000 ms QRS Dur : 114 ms QT Int : 392 ms P-R-T Axes : 000 -63 006 degrees QTc Int : 490 ms Atrial fibrillation Left anterior fascicular block Prolonged QT Abnormal ECG When compared with ECG of 06-OCT-2024 14:31, Criteria for Inferior infarct are no longer Present QT has lengthened Referred By: Smith Galvan Electronically Signed By:SHELIA DELGADILLO MD
--- NOTE | 2024-11-12 19:14 | ED.ABDPAIN ---
HPI - Abdominal Pain General Chief Complaint: Abdominal Pain Stated Complaint: abd tenderness, vomiting Time Seen by Provider: 11/12/24 19:08 Source: patient History of Present Illness ED Provider: Cole MENDOZA narrative: 68-year-old female with past medical history colon cancer status post resection complicated by multiple bowel obstructions presenting for abdominal pain, nausea and vomiting. Patient's symptoms began this morning. She states that she normally has a bowel movement in the morning after breakfast however this morning she did not have a bowel movement after breakfast and she has not had a bowel movement since. She is also endorsing nausea and multiple episodes of nonbloody nonbilious emesis. She denies symptoms. She feels that she is obstructed as this is how her symptoms of obstruction present. She denies chest pain, shortness of breath, fevers, chills. Related Data Home Medications ?Medication ?Instructions ?Recorded ?Confirmed acetaminophen 325 mg tablet 650 mg PO Q8H PRN ARTHRITIS PAIN 01/09/24 10/09/24 aspirin 81 mg tablet,delayed 81 mg PO DAILY 01/09/24 10/09/24 release citalopram 40 mg tablet 40 mg PO DAILY 01/09/24 10/09/24 ammonium lactate 12 % topical cream 1 appl topical BID PRN Rash 02/06/24 10/09/24 multivitamin 1 tab PO DAILY 02/28/24 10/09/24 lactobacillus combination no.4 3 3,000 mmu cells PO DAILY@0800 04/10/24 10/09/24 billion cell capsule (Probiotic) temazepam 15 mg capsule 15 mg PO BEDTIME 05/16/24 10/09/24 albuterol sulfate 2.5 mg/3 mL 2.5 mg inhalation Q6H PRN dyspnea 10/03/24 10/09/24 (0.083 %) solution for nebulization [id number] 2 cap PO BID 10/03/24 10/09/24 36,000-114,000-180,000 unit capsule,delay rel (Creon) midodrine 5 mg tablet 5 mg PO TID PRN Low BP 10/03/24 10/09/24 Previous Rx's ?Medication ?Instructions ?Recorded atorvastatin 80 mg tablet 80 mg PO DAILY #90 tabs 05/07/24 cholecalciferol (vitamin D3) 50 50 mcg PO DAILY #90 caps 05/07/24 mcg (2,000 unit) capsule nystatin 100,000 unit/gram topical 1 appl topical DAILY PRN rash #30 05/28/24 powder grams famotidine 40 mg tablet 40 mg PO DAILY #90 tabs 07/31/24 carbamazepine 100 mg chewable 150 mg (1.5 x 100 mg) PO TID #150 09/16/24 tablet tabs quetiapine 100 mg tablet 100 mg PO BEDTIME #90 tabs 09/16/24 ondansetron 8 mg disintegrating 8 mg translingual Q8H PRN Nausea 09/26/24 tablet And Vomiting #60 tabs rivaroxaban 20 mg tablet (Xarelto) 20 mg PO DAILY@1700 #90 tabs 09/27/24 vancomycin 125 mg capsule 125 mg PO QID #36 caps 10/05/24 (Vancocin) metoprolol tartrate 50 mg tablet 50 mg PO BID #180 tabs 10/07/24 dicyclomine 20 mg tablet 20 mg PO QID 30 days #120 tabs 10/26/24 Allergies Allergy/AdvReac Type Severity Reaction Status Date / Time No Known Allergies Allergy Verified 11/12/24 19:20 Review of Systems Review of Systems Patient endorses abdominal pain, nausea and vomiting Yes all other systems are reviewed and are negative [facility] Past Medical History Medical History C. difficile colitis Tremor Diplopia History of small bowel obstruction Hx of colon cancer, stage III Bipolar 1 disorder CAD (coronary artery disease) Persistent atrial fibrillation Essential hypertension Hyperlipidemia Personal history of nicotine dependence Unsteady gait Thrombocytopenia Anemia Cervical radiculopathy due to degenerative joint disease of spine History of radius fracture Degenerative disc disease, cervical Acquired deafness of left ear Surgical History Status post coronary artery bypass graft History of coronary artery bypass graft x 2 (~2018) History of cardiac catheterization History of partial colectomy (~2015) History of reversal of ileostomy History of resection of small bowel (~2020) History of laparoscopic adjustable gastric banding (~2004) History of laparoscopic cholecystectomy (~2003) History of parotidectomy (~2014) History of cervical discectomy (~2013) History of surgery on right wrist History of colonoscopy History of esophagogastroduodenoscopy (EGD) History of appendectomy (~2003) History of tonsillectomy History of bunionectomy Family History Family History Sister Substance use disorder Insulin dependent type 1 diabetes mellitus Mother Colon cancer Breast cancer Coronary artery disease High cholesterol Essential hypertension Father Heart disease Brother Heart disease Social History Social History Household Members: None Housing: Apartment Do you presently have visiting nurse or other home services: No Unable to assess alcohol history related to: Unable to respond Alcohol intake: never Patient Tobacco Use Status: Former Tobacco user Tobacco use type: Cigarette Years Smoked: (former smoker - onset 30yo, 1ppd x 33yrs, 30pyh, quit 11/2018) e-Cigarette/Vaping Use: Never Used Second Hand Smoke Exposure: No Advance Directives: Yes Advance Directives on File: Yes Advance Directives Date on File: 03/02/24 Do you have a plan to hurt others: No Plan service: No Current occupational status: retired Cognitive needs: No Hearing needs: No Vision needs: Yes Physical Exam ED Vital Signs: Vital Signs - 24 hr 11/12/24 19:09 11/12/24 19:53 Temperature 98.4 F 98.4 F Pulse Rate 76 78 Respiratory Rate 16 16 Blood Pressure 134/72 116/75 Pulse Oximetry 94 93 Oxygen Delivery Method Room Air Room Air BMI result Body Mass Index 37.4 Well-appearing female in no acute distress Lungs clear to auscultation bilaterally with unlabored breathing Normal S1-S2 regular rate and rhythm Abdomen is soft, mildly distended with lower quadrant tenderness to palpation Medical Decision Making Medical Decision Making MDM Narrative: 68-year-old female presenting for nausea, vomiting abdominal pain. I am concerned for the following; bowel obstruction, diverticulitis, gastroenteritis, biliary disease, pancreatitis -labs and imaging studies ordered -Zofran and morphine ordered -labs notable for stable H&H, no white count, low magnesium, -I reviewed patient's CT and appreciate distended small intestine. The radiology impression is reading a partial small bowel obstruction I consulted overnight surgeon Dr. Jesika Rg who accepted patient for admission Lab Data 11/12/24 19:33 11/12/24 19:33 Labs: Lab Results 11/12/24 Range/Units 19:33 WBC 6.3 (4.8-10.8) X10*3/uL RBC 4.18 L (4.20-5.50) X10*6/uL Hgb 12.2 (12.0-16.0) g/dl Hct 35.7 L (37.0-47.0) % MCV 85.4 (80.0-98.0) fL MCH 29.2 (27.0-33.0) pg MCHC 34.2 (31.0-35.0) g/dl RDW 13.6 (11.0-16.0) % Plt Count 142 L (160-400) X10*3/uL MPV 10.1 (9.4-12.3) fL Immature Gran % (Auto) 0.3 (0.0-0.4) % Neut % (Auto) 78.2 H (45-73) % Lymph % (Auto) 7.8 L (20-40) % [place] % (Auto) 11.8 H (2-11) % Eos % (Auto) 1.4 (0-4) % Baso % (Auto) 0.5 (0-2) % Lymph # (Auto) 0.5 L (1.2-4.9) X10*3/uL [place] # (Auto) 0.7 (0.1-1.2) X10*3/uL Eos # (Auto) 0.1 (0.0-0.4) X10*3/uL Baso # (Auto) 0.0 (0.0-0.2) X10*3/uL Abs Immat Gran (auto) 0.02 (0.00-0.03) X10*3/uL Absolute Neuts (auto) 4.9 (2.0-8.3) x10*3/uL Absolute Nucleated RBC 0.000 (0.0-0.012) X10*3/uL Nucleated RBC % (auto) 0.0 (0.0-0.2) /100WBC Sodium 133 L (135-145) mmol/L Potassium 4.1 (3.3-5.1) mmol/L Chloride 104 (96-108) mmol/L Carbon Dioxide 21 L (22-29) mmol/L Anion Gap 12 (12-20) BUN 10 (9-16) mg/dL Creatinine 0.77 (0.5-1.4) mg/dL Estim Creat Clear Calc 68.4 Estimated GFR > 60 Random Glucose 120 H (60-115) mg/dL Lactic Acid 1.6 (0.5-2.0) mmol/L Calcium 8.7 (8.4-10.2) mg/dL Phosphorus 3.9 (2.7-4.5) mg/dL Magnesium 1.3 L* (1.6-2.6) mg/dL Total Bilirubin 0.9 (0.0-1.0) mg/dL Direct Bilirubin 0.4 (0.0-0.5) mg/dL AST 62 H (5-31) U/L ALT 29 (0-31) U/L Alkaline Phosphatase 206 H (39-117) U/L Troponin I High Sens 9.1 D (<3.5-17.0) ng/L Total Protein 7.3 (6.5-8.0) g/dL Albumin 3.4 L (3.5-5.0) g/dL Lipase 29 (8-78) U/L Medications Administered Discontinued Medications Generic Name Dose Route Start Last Admin Trade Name Freq PRN Reason Stop Dose Admin Iohexol 100 ml 11/12/24 20:19 11/12/24 20:19 Iohexol 350 Mg/Ml 100 Ml Infus..Btl IV 11/12/24 20:20 85 ml ONCE ONE Administration Morphine Sulfate 4 mg 11/12/24 19:50 11/12/24 19:58 Morphine Sulfate 4 Mg/Ml Cartridge IVPUSH 11/12/24 19:51 4 mg ONCE ONE Administration Protocol Ondansetron HCl 4 mg 11/12/24 19:12 11/12/24 19:37 Ondansetron Hcl 4 Mg/2 Ml Vial IVPUSH 11/12/24 19:13 4 mg ONCE ONE Administration Discharge Plan Discharge Clinical Impression: Bowel obstruction Qualifiers: Intestinal obstruction type: unspecified Intestinal obstruction extent: partial Qualified Code(s): K56.600 - Partial intestinal obstruction, unspecified as to cause Patient Disposition: Admitted As Inpatient Print Language: Guinean
[2024-11-12 19:37] LABS: MANUAL DIFF FLAG NO
[2024-11-12] MEDS: ondansetron HCL 4 MG/2 ML VIAL IVPUSH ×2 (19:37→23:02)
[2024-11-12 19:38] LABS: Basophils Percent Auto 0.5 % (0-2); Eosinophils Absolute Auto 0.1 X10*3/uL (0.0-0.4); Eosinophils Percent Auto 1.4 % (0-4); Hematocrit 35.7 % (37.0-47.0); Hemoglobin 12.2 g/dl (12.0-16.0); Imm Gran Abs Auto 0.02 X10*3/uL (0.00-0.03); Imm Gran Pct Auto 0.3 % (0.0-0.4); Lymphocytes Absolute Auto 0.5 X10*3/uL (1.2-4.9); Lymphocytes Percent Auto 7.8 % (20-40); Mean Corpuscular HGB Conc 34.2 g/dl (31.0-35.0); Mean Corpuscular Hemoglobin 29.2 pg (27.0-33.0); Mean Corpuscular Volume 85.4 fL (80.0-98.0); Mean Platelet Volume 10.1 fL (9.4-12.3); Monocytes Absolute Auto 0.7 X10*3/uL (0.1-1.2); Monocytes Percent Auto 11.8 % (2-11); Neutrophils Absolute Auto 4.9 x10*3/uL (2.0-8.3); Neutrophils Percent Auto 78.2 % (45-73); Platelet Count 142 X10*3/uL (160-400); Red Blood Count 4.18 X10*6/uL (4.20-5.50); Red Cell Distribution Width 13.6 % (11.0-16.0); White Blood Count 6.3 X10*3/uL (4.8-10.8)
[2024-11-12 19:53] VITALS: BP 116/75; PULSE 78; RESP 16; TEMP 36.9; O2SAT 93
--- NOTE | 2024-11-12 19:53 | MHC.EDTECH ---
This pct assumed care of Patient at 1920 ,vitals taken ,ekg taken and was read by Provider .
[2024-11-12 19:58] LABS: Lactic Acid 1.6 mmol/L (0.5-2.0)
[2024-11-12] MEDS: Morphine Sulfate 4 MG/ML CARTRIDGE IVPUSH (19:58)
[2024-11-12 20:03] LABS: Alanine Aminotransferase 29 U/L (0-31); Albumin Level 3.4 g/dL (3.5-5.0); Alkaline Phosphatase 206 U/L (39-117); Anion Gap 12 (12-20); Aspartate Amino Transferase 62 U/L (5-31); Bilirubin Direct 0.4 mg/dL (0.0-0.5); Bilirubin Total 0.9 mg/dL (0.0-1.0); Blood Urea Nitrogen 10 mg/dL (9-16); Calcium 8.7 mg/dL (8.4-10.2); Carbon Dioxide 21 mmol/L (22-29); Chloride 104 mmol/L (96-108); Creatinine Clr Calc Pharmacy 68.4; Estimated Glomerular Filt Rate > 60; Glucose Random 120 mg/dL (60-115); Lipase 29 U/L (8-78); Magnesium 1.3 mg/dL (1.6-2.6); Phosphorus 3.9 mg/dL (2.7-4.5); Potassium 4.1 mmol/L (3.3-5.1); Sodium 133 mmol/L (135-145); Total Protein 7.3 g/dL (6.5-8.0)
[2024-11-12 20:06] LABS: Troponin-I High Sensitivity 9.1 ng/L (<3.5-17.0)
[2024-11-12] MEDS: iohexoL 350 MG/ML 100 ML INFUS..BTL IV (20:19)
--- NOTE | 2024-11-12 21:00 | PC.NURSE ---
this rn assumed care of pt @ 1907 from [facility]. pt calm and cooperative 20 g iv placed in L Ac pt tolerated well labs obtained pt medicated according to mar
[2024-11-12 21:34] VITALS: BP 131/92; PULSE 87; RESP 16; TEMP 37.3; O2SAT 95
--- NOTE | 2024-11-12 21:39 | MHC.EDTECH ---
2200 rounding done ,vitals taken ,Patient belongings list done .No apparent distress noted ,Plan of care continue .
[2024-11-12] MEDS: Magnesium Sulfate/D5W 1 GM/100 ML PIGGYBACK IV (21:53)
--- NOTE | 2024-11-12 22:07 | PHA.MEDREC ---
Addendum entered by Gracy Clements [facility] 11/12/24 22:36: Reviewed. Patients carbamazepine dose was increased after last discharge to 200 mg tid. Patient is no longer on furosemide. Original Note: Pharmacy Consult ? Medication Reconciliation Pharmacy has completed the medication reconciliation. Spoke to patient to confirm med list. Patient states she is no longer taking Cholestyramine powder packets, Dicyclomine 20 mg, and Vancomycin 125 mg.
[2024-11-12 22:22] LABS: Appearance Urine Clear; Color Urine Yellow; Glucose Urine UA Negative (Negative); Leukocyte Esterase Urine Negative (Negative); Nitrite Urine Negative (Negative); Specific Gravity - Urine >= 1.030 (1.005-1.025); Urine Blood Negative (Negative); Urine Ketones Negative (Negative); Urine Protein Negative (Neg-Trace)
--- NOTE | 2024-11-12 22:38 | P.CONHOSP_ITS ---
History of Present Illness Data of Consult Service Date: 11/12/24 Requesting physician: Ryan Regalado Primary Care Provider: MD KELLY Gunderson Reason for consult: medical consult Patient is a 68-year-old female with a past medical history significant recurrent small-bowel obstructions, multiple previous abdominal, cancer in 2017 status post sigmoid resection, chemotherapy, ileostomy with reversal, history of gastric band, mild aortic stenosis, hypertension, previous smoking history, double bypass in 2019, GERD and persistent AFib on Xarelto, who presented to the ED with abdominal pain and nausea. Found to have at least a partial small-bowel obstruction, mae colitis (c diff vs UC), and new cirrhotic liver with narrowing of the extrahepatic portal vein and numerous collateral vessels. Patient that she has never had any heavy alcohol consumption however mother has a history of fatty liver disease and cirrhosis. Patient reports she has high cholesterol as well and takes a statin. She was previously admitted for several days for a small-bowel obstruction which was treated with NG decompression. This hospital stay was complicated by C diff colitis and episodes of AFib and she was discharged home with the higher dose of metoprolol, 50 mg b.i.d.. She reports that she had a Holter monitor outpatient and was told to continue with metoprolol 50 mg b.i.d.. Review of Systems 2 Constitutional: Constitutional: Denies chills, Denies fatigue, Denies fever(s) and Denies headache(s) Eyes: Eyes: Denies change in vision ENT: Denies headache(s), Denies nasal congestion, Denies nasal discharge and Denies sore throat Cardiovascular: Cardiovascular: Denies chest pain, Denies rapid heart rate, Denies lightheadedness and Denies dyspnea Respiratory: Respiratory: Denies chest congestion, Denies cough, Denies dyspnea and Denies wheezing Gastrointestinal: Gastrointestinal: Denies coffee ground emesis, Reports constipation, Denies diarrhea, Reports nausea, Reports vomiting and Denies hematemesis Genitourinary: Genitourinary: Denies dysuria and Denies urinary urgency Musculoskeletal: Musculoskeletal: Denies myalgias Integumentary/Breasts: Skin/Breast: Denies rash Neurologic: Denies confusion and Denies headache(s) Psychiatric: Psychiatric: Denies confusion Endocrine: Endocrine: Denies fatigue Hematologic/Lymphatic: Hematologic/Lymphatic: Denies easy bleeding Allergic/Immunologic: Allergic/Immunologic: Denies wheezing [facility] Medical History C. difficile colitis Tremor Diplopia History of small bowel obstruction Hx of colon cancer, stage III Bipolar 1 disorder CAD (coronary artery disease) Persistent atrial fibrillation Essential hypertension Hyperlipidemia Personal history of nicotine dependence Unsteady gait Thrombocytopenia Anemia Cervical radiculopathy due to degenerative joint disease of spine History of radius fracture Degenerative disc disease, cervical Acquired deafness of left ear Family History Sister Substance use disorder Insulin dependent type 1 diabetes mellitus Mother Colon cancer Breast cancer Coronary artery disease High cholesterol Essential hypertension Father Heart disease Brother Heart disease Surgical History Status post coronary artery bypass graft History of coronary artery bypass graft x 2 (~2018) History of cardiac catheterization History of partial colectomy (~2015) History of reversal of ileostomy History of resection of small bowel (~2020) History of laparoscopic adjustable gastric banding (~2004) History of laparoscopic cholecystectomy (~2003) History of parotidectomy (~2014) History of cervical discectomy (~2013) History of surgery on right wrist History of colonoscopy History of esophagogastroduodenoscopy (EGD) History of appendectomy (~2003) History of tonsillectomy History of bunionectomy Social History Household Members: None Housing: Apartment Do you presently have visiting nurse or other home services: No Unable to assess alcohol history related to: Unable to respond Alcohol intake: never Patient Tobacco Use Status: Former Tobacco user Tobacco use type: Cigarette Years Smoked: (former smoker - onset 30yo, 1ppd x 33yrs, 30pyh, quit 11/2018) e-Cigarette/Vaping Use: Never Used Second Hand Smoke Exposure: No Advance Directives: Yes Advance Directives on File: Yes Advance Directives Date on File: 03/02/24 Do you have a plan to hurt others: No Plan service: No Current occupational status: retired Cognitive needs: No Hearing needs: No Vision needs: Yes Meds Allergies Allergy/AdvReac Type Severity Reaction Status Date / Time No Known Allergies Allergy Verified 11/12/24 19:20 Active Medications: Current Medications Acetaminophen (Acetaminophen 325 Mg Tablet) 650 mg PO Q6H PRN PRN Reason: Pain, Mild 1-3,fever,headache Albuterol Sulfate (Albuterol Sulfate 90 Mcg 8 Gm Inhaler) 2 puff INHALE Q6H PRN PRN Reason: shortness of breath Lactated Ringer's (Lr) 1,000 mls @ 100 mls/hr IVCONT .Q10H [facility] Melatonin (Melatonin 3 Mg Tablet) 6 mg PO BEDTIME PRN PRN Reason: Insomnia Metoprolol Tartrate (Metoprolol Tartrate 50 Mg Tablet) 50 mg PO BID LAURA; Protocol Morphine Sulfate (Morphine Sulfate 4 Mg/Ml Cartridge) 3 mg IVPUSH Q3H PRN; Protocol PRN Reason: Pain, Severe (Pain Scale 7-10) Ondansetron HCl (Ondansetron Hcl 4 Mg/2 Ml Vial) 4 mg IVPUSH Q8H PRN PRN Reason: Nausea and Vomiting Sodium Chloride (0.9 % Sodium Chloride Flush 3 Ml Syringe) 3 ml IVFLUSH QSHIFT [facility] Home Medications ?Medication ?Instructions ?Recorded ?Confirmed ?Last Taken ?Type acetaminophen 325 mg tablet 650 mg PO Q8H PRN ARTHRITIS PAIN 01/09/24 11/12/24 05/15/24 History aspirin 81 mg tablet,delayed 81 mg PO DAILY 01/09/24 11/12/24 11/12/24 History release citalopram 40 mg tablet 40 mg PO DAILY 01/09/24 11/12/24 11/12/24 History ammonium lactate 12 % topical cream 1 appl topical BID PRN Rash 02/06/24 11/12/24 05/15/24 History multivitamin 1 tab PO DAILY 02/28/24 11/12/24 11/12/24 History lactobacillus combination no.4 3 3,000 mmu cells PO DAILY@0800 04/10/24 11/12/24 11/12/24 History billion cell capsule (Probiotic) temazepam 15 mg capsule 15 mg PO BEDTIME 05/16/24 11/12/24 11/11/24 History albuterol sulfate 2.5 mg/3 mL 2.5 mg inhalation Q6H PRN dyspnea 10/03/24 11/12/24 Unknown History (0.083 %) solution for nebulization [id number]-mhmmobzy-yxuatkq 2 cap PO BID 10/03/24 11/12/24 11/12/24 History 36,000-114,000-180,000 unit capsule,delay rel (Creon) midodrine 5 mg tablet 5 mg PO TID PRN Low BP 10/03/24 11/12/24 Unknown History carbamazepine 200 mg tablet 200 mg PO TID 11/12/24 11/12/24 Unknown History Physical Exam 2 Vital Signs and Narrative: Vital Signs: Last Vital Signs Temp 99.1 F 11/12/24 21:34 Pulse 87 11/12/24 21:34 Resp 16 11/12/24 21:34 BP 131/92 H 11/12/24 21:34 Pulse Ox 95 11/12/24 21:34 O2 Del Method Room Air 11/12/24 21:34 BMI result Body Mass Index 37.4 General: AOx3, no acute distress Resp: CTA bilaterally CVS:regularly irregular, normal rate GI: + hyopactive but present BS, NT, mild distention Skin: Warm, dry Neuro: Cranial nerves II-XII grossly intact bilaterally. Motor grossly intact bilaterally Extremities: No LE edema Psych: Appropriate affect Const: General: No confusion Orientation/consciousness: No confusion Neuro: General: No confusion Results Labs 11/12/24 19:33 11/12/24 19:33 Labs: Laboratory Results - last 24 hr 11/12/24 11/12/24 19:33 22:15 MCV 85.4 MCH 29.2 MCHC 34.2 RDW 13.6 Plt Count 142 L MPV 10.1 Immature Gran % (Auto) 0.3 Neut % (Auto) 78.2 H Lymph % (Auto) 7.8 L [place] % (Auto) 11.8 H Eos % (Auto) 1.4 Baso % (Auto) 0.5 Lymph # (Auto) 0.5 L [place] # (Auto) 0.7 Eos # (Auto) 0.1 Baso # (Auto) 0.0 Abs Immat Gran (auto) 0.02 Absolute Neuts (auto) 4.9 Absolute Nucleated RBC 0.000 Nucleated RBC % (auto) 0.0 Anion Gap 12 Estim Creat Clear Calc 68.4 Estimated GFR > 60 Random Glucose 120 H Lactic Acid 1.6 Calcium 8.7 Phosphorus 3.9 Magnesium 1.3 L* Total Bilirubin 0.9 Direct Bilirubin 0.4 AST 62 H ALT 29 Alkaline Phosphatase 206 H Troponin I High Sens 9.1 D Total Protein 7.3 Albumin 3.4 L Lipase 29 Urine Color Yellow Urine Appearance Clear Urine pH 6.0 Ur Specific [place] >= 1.030 H Urine Protein Negative Urine Glucose (UA) Negative Urine Ketones Negative Urine Blood Negative Urine Nitrite Negative Ur Leukocyte Esterase Negative Assessment and Plan (1) Bowel obstruction: Qualifiers: Intestinal obstruction extent: partial Intestinal obstruction type: u nspecified Qualified Code(s): K56.600 - Partial intestinal obstruction, unspecified as to cause Status: Acute (2) Cirrhosis of liver: Status: Acute (3) Colitis: Status: Acute Plan Patient is a 68-year-old female with a past medical history significant recurrent small-bowel obstructions, multiple previous abdominal, cancer in 2017 status post sigmoid resection, chemotherapy, ileostomy with reversal, history of gastric band, mild aortic stenosis, hypertension, previous smoking history, double bypass in 2019, GERD and persistent AFib on Xarelto, who presented to the ED with abdominal pain and nausea. Found to have at least a partial small-bowel obstruction, mae colitis (c diff vs UC), and new cirrhotic liver with narrowing of the extrahepatic portal vein and numerous collateral vessels. SBO - CT with at least a partial small bowel obstruction, mae colitis (C diff versus ulcerative colitis), and new cirrhosis - NPO - plan per surgery - continue zofran PRN for nausea, added benadryl as pt still nauseas and has hx of QT prolongation, currently borderline colitis - recently had c diff with SBO in 10/07 during admission, treated with PO vanco - no diarrhea at home but also did not have any last time either - cdiff stool test ordered - CT also suggested it could be UC, suggest outpt GI w/u new dx cirrhosis - previous CT suggestive of cirrhosis vs chronic liver disease, new CT more suggestive of cirrhosis, has not had further w/u - mild elevation of AST 62, ALT normal 29, ALP elevated at 206 - suggest outpt GI w/u AFib - continue Xarelto and metoprolol 50 mg b.i.d. when appropriate - monitor with telemetry HTN - continue metoprolol when appropriate CAD/hx CABG in 2019 - continue ASA when appropriate - echo 03/07 with EF >70%, mild , severe mitral annular calcification, mild pulmonary HTN prolonged QTc - K normal, mag low, given 1g in ED - avoid QT prolonging agents for now when possible bipolar - continue carbamazepine and seroquel when appropriate Thank you for allowing me to participate in the pt's care. Signing off for now. Please contact the medical team if any questions or concerns.
[2024-11-12] MEDS: Lactated Ringers 1,000 ML 100 ML IVCONT (23:33)
[2024-11-13] VITALS (7 sets, daily range): BP systolic 104–131; BP diastolic 57–73; PULSE 95–105; RESP 16–18; TEMP 36.5–37.3; O2SAT 93–96; BMI 37.3
--- NOTE | 2024-11-13 00:11 | MHC.EDTECH ---
0000 rounding done ,vitals taken ,Patient awake watching television ,no apparent distress noted ,Plan of care continue .
--- NOTE | 2024-11-13 03:28 | PC.NURSE ---
pt reports to this rn increased abd rigidity. this rn noted active bowel sounds present this rn made dr puga aware of abd rigidity with positive bowel sounds per md place ngt verbal order with read back for ngt to low suction intermittent placed by this rn
[2024-11-13] MEDS: diphenhydrAMINE HCL 50 MG/ML VIAL 25 MG IVPUSH ×2 (03:42→19:40)
--- NOTE | 2024-11-13 05:40 | PC.NURSE ---
ng tube placed pt tolerated well, denies nausea at this time awaiting chest xray at this time
[2024-11-13 05:42] LABS: Anion Gap 12 (12-20); Blood Urea Nitrogen 10 mg/dL (9-16); Calcium 9.1 mg/dL (8.4-10.2); Carbon Dioxide 24 mmol/L (22-29); Chloride 102 mmol/L (96-108); Creatinine Clr Calc Pharmacy 70.2; Estimated Glomerular Filt Rate > 60; Glucose Random 121 mg/dL (60-115); Potassium 4.2 mmol/L (3.3-5.1); Sodium 134 mmol/L (135-145)
--- NOTE | 2024-11-13 07:38 | P.HPGS_ITS ---
History of Present Illness History of Present Illness Date of Service: 11/25/24 Chief complaint: partial SBO Narrative: Deidre To is a 68 year old female admitted last night because of the abdominal pain and vomiting. She is actually well known to this service. She has had multiple abdominal surgeries including sigmoid colon resection with ileostomy for colon cancer in 2017, reversal of ileostomy, cholecystectomy and gastric band. These were all done in [place]. She has had multiple episodes of small-bowel obstructions since then. She had moved to the area last year to be with her son. She was actually admitted to the hospital twice this year and the last 1 was in September, for the same reasons. She started to have abdominal pain around lunchtime yesterday along with nausea and vomiting. This persisted throughout the afternoon. She therefore came to the emergency room last night. She says she recalls having flatus all the way until yesterday morning. She does state that she feels better this morning. She says that her abdominal pain is much improved. An NG tube had been inserted last night on admission. She has a history of coronary disease, and with two-vessel CABG, liver cirrhosis, carotid artery disease, hypertension, valvular disease, chronic neck pain and back pain. Review of Systems Constitutional: Constitutional: Denies chills and Denies fever(s) Cardiovascular: Cardiovascular: Denies chest pain, Denies dyspnea and Denies dyspnea on exertion Respiratory: Respiratory: Denies cough, Denies dyspnea and Denies dyspnea on exertion Gastrointestinal: Gastrointestinal: Denies hematochezia, Denies change in bowel habits and Reports vomiting Genitourinary: Genitourinary: Denies hematuria Musculoskeletal: Musculoskeletal: Reports back pain and Denies limited range of motion Neurologic: Denies focal weakness and Denies convulsions Psychiatric: Psychiatric: Denies depression and Denies mood swings [facility] Past Medical History Medical History (Updated 11/25/24 @ 00:00 by Background Daemon) Partial small bowel obstruction C. difficile colitis Tremor Diplopia History of small bowel obstruction Hx of colon cancer, stage III Bipolar 1 disorder CAD (coronary artery disease) Persistent atrial fibrillation Essential hypertension Hyperlipidemia Personal history of nicotine dependence Unsteady gait Thrombocytopenia Anemia Cervical radiculopathy due to degenerative joint disease of spine History of radius fracture Degenerative disc disease, cervical Acquired deafness of left ear Family History Family History Sister Substance use disorder Insulin dependent type 1 diabetes mellitus Mother Colon cancer Breast cancer Coronary artery disease High cholesterol Essential hypertension Father Heart disease Brother Heart disease Surgical History Surgical History Status post coronary artery bypass graft History of coronary artery bypass graft x 2 (~2018) History of cardiac catheterization History of partial colectomy (~2015) History of reversal of ileostomy History of resection of small bowel (~2020) History of laparoscopic adjustable gastric banding (~2004) History of laparoscopic cholecystectomy (~2003) History of parotidectomy (~2014) History of cervical discectomy (~2013) History of surgery on right wrist History of colonoscopy History of esophagogastroduodenoscopy (EGD) History of appendectomy (~2003) History of tonsillectomy History of bunionectomy Social History Social History Household Members: None Housing: Apartment Do you presently have visiting nurse or other home services: No Unable to assess alcohol history related to: Unable to respond Alcohol intake: never Patient Tobacco Use Status: Former Tobacco user Tobacco use type: Cigarette Years Smoked: (former smoker - onset 30yo, 1ppd x 33yrs, 30pyh, quit 11/2018) e-Cigarette/Vaping Use: Never Used Second Hand Smoke Exposure: No Advance Directives Date on File: 03/02/24 service: No Current occupational status: retired Cognitive needs: No Hearing needs: No Vision needs: Yes Meds Allergies Allergy/AdvReac Type Severity Reaction Status Date / Time No Known Allergies Allergy Verified 11/12/24 19:20 Active Medications: Current Medications Acetaminophen (Acetaminophen 325 Mg Tablet) 650 mg PO Q6H PRN PRN Reason: Pain, Mild 1-3,fever,headache Albuterol Sulfate (Albuterol Sulfate 90 Mcg 8 Gm Inhaler) 2 puff INHALE Q6H PRN PRN Reason: shortness of breath Diphenhydramine HCl (Diphenhydramine Hcl 50 Mg/Ml Vial) 25 mg IVPUSH Q6H PRN PRN Reason: Nausea and Vomiting Last Admin: 11/13/24 03:42 Dose: 25 mg Lactated Ringer's (Lr) 1,000 mls @ 100 mls/hr IVCONT .Q10H [facility] Last Admin: 11/12/24 23:33 Dose: 100 mls/hr Melatonin (Melatonin 3 Mg Tablet) 6 mg PO BEDTIME PRN PRN Reason: Insomnia Metoprolol Tartrate (Metoprolol Tartrate 50 Mg Tablet) 50 mg PO BID [facility]; Protocol Morphine Sulfate (Morphine Sulfate 4 Mg/Ml Cartridge) 3 mg IVPUSH Q3H PRN; Protocol PRN Reason: Pain, Severe (Pain Scale 7-10) Ondansetron HCl (Ondansetron Hcl 4 Mg/2 Ml Vial) 4 mg IVPUSH Q8H PRN PRN Reason: Nausea and Vomiting Sodium Chloride (0.9 % Sodium Chloride Flush 3 Ml Syringe) 3 ml IVFLUSH QSHIFT [facility] Last Admin: 11/13/24 01:13 Dose: Not Given Home Medications ?Medication ?Instructions ?Recorded ?Confirmed ?Last Taken ?Type acetaminophen 325 mg tablet 650 mg PO Q8H PRN ARTHRITIS PAIN 01/09/24 11/19/24 05/15/24 History aspirin 81 mg tablet,delayed 81 mg PO DAILY 01/09/24 11/19/24 11/12/24 History release citalopram 40 mg tablet 40 mg PO DAILY 01/09/24 11/19/24 11/12/24 History ammonium lactate 12 % topical cream 1 appl topical BID PRN Rash 02/06/24 11/19/24 05/15/24 History multivitamin 1 tab PO DAILY 02/28/24 11/19/24 11/12/24 History lactobacillus combination no.4 3 3,000 mmu cells PO DAILY@0800 04/10/24 11/19/24 11/12/24 History billion cell capsule (Probiotic) temazepam 15 mg capsule 15 mg PO BEDTIME 05/16/24 11/19/24 11/11/24 History albuterol sulfate 2.5 mg/3 mL 2.5 mg inhalation Q6H PRN dyspnea 10/03/24 11/19/24 Unknown History (0.083 %) solution for nebulization [id number] 2 cap PO BID 10/03/24 11/19/24 11/12/24 History 36,000-114,000-180,000 unit capsule,delay rel (Creon) midodrine 5 mg tablet 5 mg PO TID PRN Low BP 10/03/24 11/19/24 Unknown History carbamazepine 200 mg tablet 200 mg PO TID 11/12/24 11/19/24 Unknown History Physical Exam Vital Signs: Vital Signs: Last Vital Signs Temp 99.2 F 11/13/24 06:45 Pulse 100 11/13/24 06:45 Resp 18 11/13/24 06:45 BP 126/66 11/13/24 06:45 Pulse Ox 95 11/13/24 06:45 O2 Del Method Room Air 11/13/24 06:45 BMI result Body Mass Index 37.4 Const: General: comfortable and no acute distress Orientation/consciousne ss: patient oriented x3 Neck: Neck: Yes no lymphadenopathy Resp: Auscultation: clear to auscultation bilaterally Cardio: Rhythm: regular rhythm GI: Palpation (GI): Soft to palpation, not firm, Tenderness to palpation present (GI) (Mild tenderness diffusely) and no guarding Neuro: General: patient oriented x3 Results Results Labs: Short CBC 11/12/24 Range/Units 19:33 WBC 6.3 (4.8-10.8) X10*3/uL Hgb 12.2 (12.0-16.0) g/dl Hct 35.7 L (37.0-47.0) % Plt Count 142 L (160-400) X10*3/uL BMP 11/12/24 11/13/24 19:33 05:15 Sodium 133 L 134 L Potassium 4.1 4.2 Chloride 104 102 Carbon Dioxide 21 L 24 BUN 10 10 Creatinine 0.77 0.75 Calcium 8.7 9.1 Liver Function 11/12/24 Range/Units 19:33 Total Bilirubin 0.9 (0.0-1.0) mg/dL Direct Bilirubin 0.4 (0.0-0.5) mg/dL AST 62 H (5-31) U/L ALT 29 (0-31) U/L Alkaline Phosphatase 206 H (39-117) U/L Albumin 3.4 L (3.5-5.0) g/dL Urine 11/12/24 Range/Units 22:15 Urine Color Yellow Urine Appearance Clear Urine pH 6.0 (5.0-9.0) Ur Specific [place] >= 1.030 H (1.005-1.025) Urine Protein Negative (Neg-Trace) mg/dL Urine Glucose (UA) Negative (Negative) mg/dL Assessment and Plan (1) Partial small bowel obstruction: Status: Resolved She was admitted because of the abdominal pain, nausea and vomiting. She had a CAT scan suggestive of partial small-bowel obstruction which seems to be secondary to stenosis in her anastomosis in the ileum. She has good amounts of air distally in the colon. There is fecalization in the small bowel proximal to this anastomosis. There was also note of some thickening of the colon wall. I am going to order for stool studies for C diff although she does not have diarrhea nor leukocytosis. She feels much better this morning. She has an NG tube in place. Her abdominal exam is very benign. We will monitor her with serial abdominal exams. We will await for return of GI function. If she does not improve further, we will consider doing a small bowel series with Gastrografin. She has had multiple episodes in the past and is familiar with her small bowel obstruction episodes. I have requested for hospitalist consult as well in view of her multiple medical problems. We will hold her Xarelto for now in case she will require surgical intervention. We will start her on subQ heparin tomorrow. Quality Stroke Does the patient have a stroke diagnosis?: No VTE Prior VTE?: No VTE Risk Level:: Medical - moderate - high VTE Device Contraindication: N/A - Device Ordered VTE Drug Contraindication: N/A - Med Ordered Procedures Date of Service Date of Service: 11/25/24
--- NOTE | 2024-11-13 09:57 | MHC.CM.PN ---
PT LIVES ALONE HAD NO SERVIES HAS OWN RIDE HOME DC PLAN HOME NO SERVIES
[2024-11-13] MEDS: Morphine Sulfate 4 MG/ML CARTRIDGE 3 MG IVPUSH ×2 (10:18→19:40)
[2024-11-13] MEDS: Metoprolol Tartrate 50 MG TABLET PO ×2 (10:19→22:07)
[2024-11-13] MEDS: Lactated Ringers 1,000 ML 100 ML IVCONT (10:20)
--- NOTE | 2024-11-13 14:15 | MHC.CLN ---
RE; CONSULT PT REPORTED 60# WT LOSS X 1 YEAR CURRENT WT 86.8KG PREVIOUS WT 88KG (05/08/24) PT WITHOUT SIGNIFICANT WT CHANGES X 6 MONTHS REMAINS OBESE FOR HT CONTINUE CURRENT CARE PLAN
--- NOTE | 2024-11-13 15:29 | PM.EVENT ---
Event Note Date of Service: 11/13/24 Event Note: Seen earlier for afternoon rounds Currently comfortable, not toxic looking However, says she gets pain meds NG tube in place Abdomen remained soft, mildly distended She denies flatus Await passage of flatus and BMs She understands if she does not improve within a reasonable period of time, she may need laparotomy NG tube to low wall suction Hospitalist following Possible small bowel series down the line Time Spent With Patient Time: Total time managing care of this patient today ____ minutes.
[2024-11-13] MEDS: Temazepam 15 MG CAPSULE PO (22:06)
[2024-11-13] MEDS: QUEtiapine Fumarate 100 MG TABLET PO (22:07)
[2024-11-13] MEDS: carBAMazepine 200 MG TABLET PO (22:07)
[2024-11-14] MEDS: Lactated Ringers 1,000 ML 100 ML IVCONT ×2 (00:01→11:58)
[2024-11-14 03:06] VITALS: BP 114/73; PULSE 101; RESP 18; TEMP 36.2; O2SAT 93
[2024-11-14 06:35] LABS: MANUAL DIFF FLAG NO
[2024-11-14 06:39] LABS: Basophils Percent Auto 0.5 % (0-2); Eosinophils Absolute Auto 0.1 X10*3/uL (0.0-0.4); Eosinophils Percent Auto 1.8 % (0-4); Hematocrit 34.1 % (37.0-47.0); Hemoglobin 11.4 g/dl (12.0-16.0); Imm Gran Abs Auto 0.02 X10*3/uL (0.00-0.03); Imm Gran Pct Auto 0.3 % (0.0-0.4); Lymphocytes Absolute Auto 0.8 X10*3/uL (1.2-4.9); Lymphocytes Percent Auto 13.1 % (20-40); Mean Corpuscular HGB Conc 33.4 g/dl (31.0-35.0); Mean Corpuscular Hemoglobin 29.4 pg (27.0-33.0); Mean Corpuscular Volume 87.9 fL (80.0-98.0); Mean Platelet Volume 10.8 fL (9.4-12.3); Monocytes Absolute Auto 1.2 X10*3/uL (0.1-1.2); Monocytes Percent Auto 18.8 % (2-11); Neutrophils Absolute Auto 4.1 x10*3/uL (2.0-8.3); Neutrophils Percent Auto 65.5 % (45-73); Platelet Count 145 X10*3/uL (160-400); Red Blood Count 3.88 X10*6/uL (4.20-5.50); Red Cell Distribution Width 14.1 % (11.0-16.0); White Blood Count 6.2 X10*3/uL (4.8-10.8)
[2024-11-14 06:55] LABS: Anion Gap 14 (12-20); Blood Urea Nitrogen 14 mg/dL (9-16); Calcium 8.6 mg/dL (8.4-10.2); Carbon Dioxide 24 mmol/L (22-29); Chloride 101 mmol/L (96-108); Creatinine Clr Calc Pharmacy 67.5; Estimated Glomerular Filt Rate > 60; Glucose Random 98 mg/dL (60-115); Potassium 4.4 mmol/L (3.3-5.1); Sodium 135 mmol/L (135-145)
[2024-11-14 07:19] VITALS: BP 110/74; PULSE 107; RESP 18; TEMP 36.1; O2SAT 92
--- NOTE | 2024-11-14 08:14 | PM.PNGS ---
Subjective Subjective Date of Service: 11/14/24 Interval history: Reports passing a small amount of flatus this morning but still feels nauseous. NG tube continues to produce high output. Fluid appears clear, nonbilious, possibly from p.o. ice chips Physical Exam Vital Signs: Vital Signs: Last Vital Signs Temp 96.9 F 11/14/24 07:19 Pulse 107 H 11/14/24 07:19 Resp 18 11/14/24 07:19 BP 110/74 11/14/24 07:19 Pulse Ox 92 11/14/24 07:19 O2 Del Method Room Air 11/14/24 07:19 BMI result Body Mass Index 37.3 Const: General: no acute distress Nutritional Appearance: well nourished Orientation/consciousness: patient oriented x3 Resp: Effort & Inspection: normal respiratory effort, no audible wheezes, no cough and no respiratory distress GI: Other: Mildly distended, tympanitic to percussion. Patient reports increased nausea with percussion. No rebound or guarding. Skin: Other: Warm, dry, no rash Neuro: General: patient oriented x3 Objective Data Active Medications Acetaminophen (Acetaminophen 325 Mg Tablet) 650 mg PO Q6H PRN PRN Reason: Pain, Mild 1-3,fever,headache Albuterol Sulfate (Albuterol Sulfate 90 Mcg 8 Gm Inhaler) 2 puff INHALE Q6H PRN PRN Reason: shortness of breath Carbamazepine (Carbamazepine 200 Mg Tablet) 200 mg PO TID [facility] Last Admin: 11/13/24 22:07 Dose: 200 mg Documented By: ANNAMARIA Diphenhydramine HCl (Diphenhydramine Hcl 50 Mg/Ml Vial) 25 mg IVPUSH Q6H PRN PRN Reason: Nausea and Vomiting Last Admin: 11/13/24 19:40 Dose: 25 mg Documented By: ANNAMARIA Heparin Sodium (Porcine) (Heparin Sodium,Porcine 5,000 Unit/Ml Vial) 5,000 unit SUBCUT Q8H [facility] Lactated Ringer's (Lr) 1,000 mls @ 100 mls/hr IVCONT .Q10H [facility] Last Admin: 11/14/24 00:01 Dose: 100 mls/hr Documented By: ANNAMARIA Melatonin (Melatonin 3 Mg Tablet) 6 mg PO BEDTIME PRN PRN Reason: Insomnia Metoprolol Tartrate (Metoprolol Tartrate 50 Mg Tablet) 50 mg PO BID [facility]; Protocol Last Admin: 11/13/24 22:07 Dose: 50 mg Documented By: ANNAMARIA Morphine Sulfate (Morphine Sulfate 4 Mg/Ml Cartridge) 3 mg IVPUSH Q3H PRN; Protocol PRN Reason: Pain, Severe (Pain Scale 7-10) Last Admin: 11/13/24 19:40 Dose: 3 mg Documented By: ANNAMARIA Ondansetron HCl (Ondansetron Hcl 4 Mg/2 Ml Vial) 4 mg IVPUSH Q8H PRN PRN Reason: Nausea and Vomiting Quetiapine Fumarate (Quetiapine Fumarate 100 Mg Tablet) 100 mg PO BEDTIME [facility] Last Admin: 11/13/24 22:07 Dose: 100 mg Documented By: ANNAMARIA Sodium Chloride (0.9 % Sodium Chloride Flush 3 Ml Syringe) 3 ml IVFLUSH QSHIFT [facility] Last Admin: 11/14/24 00:05 Dose: Not Given Documented By: ANNAMARIA Non-Admin Reason: IV Running Temazepam (Temazepam 15 Mg Capsule) 15 mg PO BEDTIME [facility] Last Admin: 11/13/24 22:06 Dose: 15 mg Documented By: ANNAMARIA Labs 11/14/24 05:27 11/14/24 05:27 Labs: Laboratory Results - last 24 hr 11/14/24 05:27 MCV 87.9 MCH 29.4 MCHC 33.4 RDW 14.1 Plt Count 145 L MPV 10.8 Immature Gran % (Auto) 0.3 Neut % (Auto) 65.5 Lymph % (Auto) 13.1 L [place] % (Auto) 18.8 H Eos % (Auto) 1.8 Baso % (Auto) 0.5 Lymph # (Auto) 0.8 L [place] # (Auto) 1.2 Eos # (Auto) 0.1 Baso # (Auto) 0.0 Abs Immat Gran (auto) 0.02 Absolute Neuts (auto) 4.1 Absolute Nucleated RBC 0.000 Nucleated RBC % (auto) 0.0 Anion Gap 14 Estim Creat Clear Calc 67.5 Estimated GFR > 60 Random Glucose 98 Calcium 8.6 Procedures Date of Service Date of Service: 11/14/24 Progress Note: A&P Assessment and plan (1) Bowel obstruction: Status: Acute Plan 68-year-old female patient with a prior history of colon cancer now with recurrent small-bowel obstruction. NG tube in place with production of 1250 mL fluid for the past 24 hours. She is passing a small amount of flatus but no significant improvement in her symptoms. Continue NG tube decompression. Possible small-bowel series tomorrow no improvement. Time Spent With Patient Time: Total time managing care of this patient today ____ minutes. Quality Stroke Does the patient have a stroke diagnosis?: No VTE Prior VTE?: No VTE Risk Level:: Medical - moderate - high VTE Device Contraindication: N/A - Device Ordered VTE Drug Contraindication: N/A - Med Ordered
[2024-11-14] MEDS: 0.9 % Sodium Chloride Flush 3 ML SYRINGE IVFLUSH ×3 (09:20→20:04)
[2024-11-14] MEDS: ondansetron HCL 4 MG/2 ML VIAL IVPUSH (09:21)
[2024-11-14] MEDS: carBAMazepine 200 MG TABLET PO ×3 (09:21→20:03)
[2024-11-14] MEDS: Morphine Sulfate 4 MG/ML CARTRIDGE 3 MG IVPUSH (09:22)
[2024-11-14 09:30] VITALS: BP 118/73; PULSE 113
[2024-11-14] MEDS: Metoprolol Tartrate 50 MG TABLET PO ×2 (09:30→20:03)
[2024-11-14] MEDS: Heparin Sodium,Porcine 5,000 UNIT/ML VIAL 5000 UNIT SUBCUT ×2 (09:34→18:47)
--- NOTE | 2024-11-14 10:21 | HO.PM.IMPN ---
Subjective Subjective Date of Service: 11/14/24 Interval History: c/o heartburn, had run of pvcs Physical Exam Vital Signs: Vital Signs: Last Vital Signs Temp 96.9 F 11/14/24 07:19 Pulse 113 H 11/14/24 09:30 Resp 18 11/14/24 07:19 BP 118/73 11/14/24 09:30 Pulse Ox 92 11/14/24 07:19 O2 Del Method Room Air 11/14/24 07:19 BMI result Body Mass Index 37.3 Const: General: no acute distress Nutritional Appearance: well nourished Orientation/consciousness: patient oriented x3 Resp: Effort & Inspection: normal respiratory effort, no audible wheezes, no cough and no respiratory distress GI: Other: Mildly distended, tympanitic to percussion. Patient reports increased nausea with percussion. No rebound or guarding. Skin: Other: Warm, dry, no rash Neuro: General: patient oriented x3 Objective Data Active Medications Acetaminophen (Acetaminophen 325 Mg Tablet) 650 mg PO Q6H PRN PRN Reason: Pain, Mild 1-3,fever,headache Albuterol Sulfate (Albuterol Sulfate 90 Mcg 8 Gm Inhaler) 2 puff INHALE Q6H PRN PRN Reason: shortness of breath Carbamazepine (Carbamazepine 200 Mg Tablet) 200 mg PO TID [facility] Last Admin: 11/14/24 09:21 Dose: 200 mg Documented By: KATHY Diphenhydramine HCl (Diphenhydramine Hcl 50 Mg/Ml Vial) 25 mg IVPUSH Q6H PRN PRN Reason: Nausea and Vomiting Last Admin: 11/13/24 19:40 Dose: 25 mg Documented By: ANNAMARIA Heparin Sodium (Porcine) (Heparin Sodium,Porcine 5,000 Unit/Ml Vial) 5,000 unit SUBCUT Q8H [facility] Last Admin: 11/14/24 09:34 Dose: 5,000 unit Documented By: KATHY Lactated Ringer's (Lr) 1,000 mls @ 100 mls/hr IVCONT .Q10H [facility] Last Admin: 11/14/24 00:01 Dose: 100 mls/hr Documented By: ANNAMARIA Melatonin (Melatonin 3 Mg Tablet) 6 mg PO BEDTIME PRN PRN Reason: Insomnia Metoprolol Tartrate (Metoprolol Tartrate 50 Mg Tablet) 50 mg PO BID [facility]; Protocol Last Admin: 11/14/24 09:30 Dose: 50 mg Documented By: KATHY Morphine Sulfate (Morphine Sulfate 4 Mg/Ml Cartridge) 3 mg IVPUSH Q3H PRN; Protocol PRN Reason: Pain, Severe (Pain Scale 7-10) Last Admin: 11/14/24 09:22 Dose: 3 mg Documented By: KATHY Ondansetron HCl (Ondansetron Hcl 4 Mg/2 Ml Vial) 4 mg IVPUSH Q8H PRN PRN Reason: Nausea and Vomiting Last Admin: 11/14/24 09:21 Dose: 4 mg Documented By: KATHY Quetiapine Fumarate (Quetiapine Fumarate 100 Mg Tablet) 100 mg PO BEDTIME [facility] Last Admin: 11/13/24 22:07 Dose: 100 mg Documented By: ANNAMARIA Sodium Chloride (0.9 % Sodium Chloride Flush 3 Ml Syringe) 3 ml IVFLUSH QSHIFT [facility] Last Admin: 11/14/24 09:20 Dose: 3 ml Documented By: KATHY Temazepam (Temazepam 15 Mg Capsule) 15 mg PO BEDTIME [facility] Last Admin: 11/13/24 22:06 Dose: 15 mg Documented By: ANNAMARIA Labs 11/14/24 05:27 11/14/24 05:27 Labs: Laboratory Results - last 24 hr 11/14/24 05:27 MCV 87.9 MCH 29.4 MCHC 33.4 RDW 14.1 Plt Count 145 L MPV 10.8 Immature Gran % (Auto) 0.3 Neut % (Auto) 65.5 Lymph % (Auto) 13.1 L [place] % (Auto) 18.8 H Eos % (Auto) 1.8 Baso % (Auto) 0.5 Lymph # (Auto) 0.8 L [place] # (Auto) 1.2 Eos # (Auto) 0.1 Baso # (Auto) 0.0 Abs Immat Gran (auto) 0.02 Absolute Neuts (auto) 4.1 Absolute Nucleated RBC 0.000 Nucleated RBC % (auto) 0.0 Anion Gap 14 Estim Creat Clear Calc 67.5 Estimated GFR > 60 Random Glucose 98 Calcium 8.6 Assessment and Plan (1) CAD (coronary artery disease): Status: Chronic Plan 68F PMH chronic AFib, colon CA status post sigmoid resection and chemotherapy, recurrent small-bowel obstructions, mild aortic stenosis, history of gastric band, hypertension, coronary artery disease, GERD presented with abdominal pain and nausea found to have partial small-bowel obstruction Small-bowel obstruction Management per surgery Acute hypomagnesemia Replace and monitor Chronic atrial fibrillation Continue metoprolol - IV, Xarelto on hold for possible procedure Coronary artery disease Meds on hold due to obstruction CT with concern for cirrhosis Likely nonalcoholic fatty liver, follow up outpatient Quality Stroke Does the patient have a stroke diagnosis?: No VTE Prior VTE?: No VTE Risk Level:: Medical - moderate - high VTE Device Contraindication: N/A - Device Ordered VTE Drug Contraindication: N/A - Med Ordered
[2024-11-14 10:59] LABS: Hematocrit 34.7 % (37.0-47.0); Hemoglobin 11.4 g/dl (12.0-16.0); Mean Corpuscular HGB Conc 32.9 g/dl (31.0-35.0); Mean Corpuscular Hemoglobin 29.3 pg (27.0-33.0); Mean Corpuscular Volume 89.2 fL (80.0-98.0); Mean Platelet Volume 10.3 fL (9.4-12.3); Platelet Count 126 X10*3/uL (160-400); Red Blood Count 3.89 X10*6/uL (4.20-5.50); Red Cell Distribution Width 14.2 % (11.0-16.0); White Blood Count 5.9 X10*3/uL (4.8-10.8)
[2024-11-14 11:10] LABS: Anion Gap 16 (12-20); Blood Urea Nitrogen 14 mg/dL (9-16); Calcium 8.6 mg/dL (8.4-10.2); Carbon Dioxide 22 mmol/L (22-29); Chloride 102 mmol/L (96-108); Creatinine Clr Calc Pharmacy 66.6; Estimated Glomerular Filt Rate > 60; Glucose Random 105 mg/dL (60-115); Potassium 4.5 mmol/L (3.3-5.1); Sodium 135 mmol/L (135-145)
[2024-11-14 11:15] LABS: Magnesium 1.4 mg/dL (1.6-2.6)
[2024-11-14] MEDS: Magnesium Sulfate/H2O 2 GM/50 ML PIGGYBACK IV ×2 (11:54→20:03)
[2024-11-14] MEDS: Pantoprazole Sodium 40 MG/10 ML VIAL IVPUSH (11:54)
[2024-11-14 15:04] VITALS: BP 109/59; PULSE 82; RESP 16; TEMP 36.4; O2SAT 94
[2024-11-14 19:52] VITALS: BP 130/72; PULSE 100; RESP 18; TEMP 36.3; O2SAT 96
--- NOTE | 2024-11-14 19:52 | PC.NURSE ---
Pt reported just prior to change of shift that she felt the NG tube might be displaced and asked for an xray. She reports with all the past 9 times she has had them they never felt like this in the back of her throat. Drainage in tubing all day was bilious green, at time of complaint was noted to be watery with very slight pink tinge. Dr. Jeffrey and oncoming RN aware. No amira red blood noted.
[2024-11-14 20:03] VITALS: BP 130/72; PULSE 100
[2024-11-14] MEDS: Temazepam 15 MG CAPSULE PO (20:03)
[2024-11-14] MEDS: QUEtiapine Fumarate 100 MG TABLET PO (20:03)
[2024-11-14 22:54] LABS: CDiff Gene PCR NEGATIVE (Negative)
[2024-11-15] MEDS: Heparin Sodium,Porcine 5,000 UNIT/ML VIAL 5000 UNIT SUBCUT ×3 (02:12→17:38)
[2024-11-15 03:45] VITALS: BP 130/71; PULSE 87; RESP 18; TEMP 36.2; O2SAT 95
[2024-11-15] MEDS: Pantoprazole Sodium 40 MG/10 ML VIAL IVPUSH (06:12)
[2024-11-15 06:14] LABS: Hematocrit 32.1 % (37.0-47.0); Hemoglobin 10.7 g/dl (12.0-16.0); Mean Corpuscular HGB Conc 33.3 g/dl (31.0-35.0); Mean Corpuscular Hemoglobin 29.4 pg (27.0-33.0); Mean Corpuscular Volume 88.2 fL (80.0-98.0); Mean Platelet Volume 10.7 fL (9.4-12.3); Platelet Count 105 X10*3/uL (160-400); Red Blood Count 3.64 X10*6/uL (4.20-5.50); Red Cell Distribution Width 14.3 % (11.0-16.0); White Blood Count 3.8 X10*3/uL (4.8-10.8)
[2024-11-15 06:20] LABS: Anion Gap 13 (12-20); Blood Urea Nitrogen 17 mg/dL (9-16); Calcium 8.3 mg/dL (8.4-10.2); Carbon Dioxide 22 mmol/L (22-29); Chloride 104 mmol/L (96-108); Creatinine Clr Calc Pharmacy 67.5; Estimated Glomerular Filt Rate > 60; Glucose Random 86 mg/dL (60-115); Magnesium 1.9 mg/dL (1.6-2.6); Potassium 4.3 mmol/L (3.3-5.1); Sodium 135 mmol/L (135-145)
[2024-11-15 07:23] VITALS: BP 114/67; PULSE 99; RESP 18; TEMP 36.2; O2SAT 94
[2024-11-15] MEDS: Metoprolol Tartrate 50 MG TABLET PO ×2 (07:29→21:01)
[2024-11-15] MEDS: carBAMazepine 200 MG TABLET PO ×3 (07:29→22:59)
[2024-11-15] MEDS: 0.9 % Sodium Chloride Flush 3 ML SYRINGE IVFLUSH (07:30)
--- NOTE | 2024-11-15 07:52 | PC.NURSE ---
NG clamped as requested by Dr. Regalado
[2024-11-15] MEDS: Lactated Ringers 1,000 ML 80 ML IVCONT ×2 (08:02→20:57)
--- NOTE | 2024-11-15 08:02 | HO.PM.IMPN ---
Subjective Subjective Date of Service: 11/15/24 Interval History: Reports bowel movement and flatus Physical Exam Vital Signs: Vital Signs: Last Vital Signs Temp 97.1 F 11/15/24 07:23 Pulse 99 11/15/24 07:23 Resp 18 11/15/24 07:23 BP 114/67 11/15/24 07:23 Pulse Ox 94 11/15/24 07:23 O2 Del Method Room Air 11/15/24 07:23 BMI result Body Mass Index 37.3 Const: General: no acute distress Nutritional Appearance: well nourished Orientation/consciousness: patient oriented x3 Resp: Effort & Inspection: normal respiratory effort, no audible wheezes, no cough and no respiratory distress GI: Other: Mildly distended, tympanitic to percussion. Patient reports increased nausea with percussion. No rebound or guarding. Skin: Other: Warm, dry, no rash Neuro: General: patient oriented x3 Objective Data Active Medications Acetaminophen (Acetaminophen 325 Mg Tablet) 650 mg PO Q6H PRN PRN Reason: Pain, Mild 1-3,fever,headache Albuterol Sulfate (Albuterol Sulfate 90 Mcg 8 Gm Inhaler) 2 puff INHALE Q6H PRN PRN Reason: shortness of breath Carbamazepine (Carbamazepine 200 Mg Tablet) 200 mg PO TID [facility] Last Admin: 11/15/24 07:29 Dose: 200 mg Documented By: JENNY Diphenhydramine HCl (Diphenhydramine Hcl 50 Mg/Ml Vial) 25 mg IVPUSH Q6H PRN PRN Reason: Nausea and Vomiting Last Admin: 11/13/24 19:40 Dose: 25 mg Documented By: ANNAMARIA Heparin Sodium (Porcine) (Heparin Sodium,Porcine 5,000 Unit/Ml Vial) 5,000 unit SUBCUT Q8H [facility] Last Admin: 11/15/24 02:12 Dose: 5,000 unit Documented By: SACHIN Lactated Ringer's (Lr) 1,000 mls @ 80 mls/hr IVCONT .[id number] [facility] Last Admin: 11/15/24 08:02 Dose: 80 mls/hr Documented By: JENNY Melatonin (Melatonin 3 Mg Tablet) 6 mg PO BEDTIME PRN PRN Reason: Insomnia Metoprolol Tartrate (Metoprolol Tartrate 50 Mg Tablet) 50 mg PO BID [facility]; Protocol Last Admin: 11/15/24 07:29 Dose: 50 mg Documented By: JENNY Morphine Sulfate (Morphine Sulfate 4 Mg/Ml Cartridge) 3 mg IVPUSH Q3H PRN; Protocol PRN Reason: Pain, Severe (Pain Scale 7-10) Last Admin: 11/14/24 09:22 Dose: 3 mg Documented By: KATHY Ondansetron HCl (Ondansetron Hcl 4 Mg/2 Ml Vial) 4 mg IVPUSH Q8H PRN PRN Reason: Nausea and Vomiting Last Admin: 11/14/24 09:21 Dose: 4 mg Documented By: KATHY Pantoprazole Sodium (Pantoprazole Sodium 40 Mg/10 Ml Vial) 40 mg IVPUSH DAILY@0630 [facility] Last Admin: 11/15/24 06:12 Dose: 40 mg Documented By: SACHIN Quetiapine Fumarate (Quetiapine Fumarate 100 Mg Tablet) 100 mg PO BEDTIME [facility] Last Admin: 11/14/24 20:03 Dose: 100 mg Documented By: SACHIN Sodium Chloride (0.9 % Sodium Chloride Flush 3 Ml Syringe) 3 ml IVFLUSH QSHIFT [facility] Last Admin: 11/15/24 07:30 Dose: 3 ml Documented By: JENNY Temazepam (Temazepam 15 Mg Capsule) 15 mg PO BEDTIME [facility] Last Admin: 11/14/24 20:03 Dose: 15 mg Documented By: SACHIN Labs 11/15/24 05:15 11/15/24 05:15 Labs: Laboratory Results - last 24 hr 11/14/24 11/14/24 11/15/24 10:45 21:56 05:15 MCV 89.2 88.2 MCH 29.3 29.4 MCHC 32.9 33.3 RDW 14.2 14.3 Plt Count 126 L 105 L MPV 10.3 10.7 Absolute Nucleated RBC 0.000 0.000 Nucleated RBC % (auto) 0.0 0.0 Anion Gap 16 13 Estim Creat Clear Calc 66.6 67.5 Estimated GFR > 60 > 60 Random Glucose 105 86 Calcium 8.6 8.3 L Magnesium 1.4 L* 1.9 C. difficile Tox B Gene NEGATIVE Assessment and Plan (1) CAD (coronary artery disease): Status: Chronic Plan 68F PMH chronic AFib, colon CA status post sigmoid resection and chemotherapy, recurrent small-bowel obstructions, mild aortic stenosis, history of gastric band, hypertension, coronary artery disease, GERD presented with abdominal pain and nausea found to have partial small-bowel obstruction Small-bowel obstruction Management per surgery Acute hypomagnesemia Replaced monitor NSVT Magnesium replaced, no further events Chronic atrial fibrillation Continue metoprolol - IV, Xarelto on hold for possible procedure Coronary artery disease Meds on hold due to obstruction CT with concern for cirrhosis Likely nonalcoholic fatty liver, follow up outpatient Quality Stroke Does the patient have a stroke diagnosis?: No VTE Prior VTE?: No VTE Risk Level:: Medical - moderate - high VTE Device Contraindication: N/A - Device Ordered VTE Drug Contraindication: N/A - Med Ordered
--- NOTE | 2024-11-15 08:04 | PM.PNGS ---
Subjective Subjective Date of Service: 11/15/24 Interval history: States she feels better Minimal pain if at all Has had BMs, flatus Physical Exam Vital Signs: Vital Signs: Last Vital Signs Temp 97.1 F 11/15/24 07:23 Pulse 99 11/15/24 07:23 Resp 18 11/15/24 07:23 BP 114/67 11/15/24 07:23 Pulse Ox 94 11/15/24 07:23 O2 Del Method Room Air 11/15/24 07:23 BMI result Body Mass Index 37.3 Const: General: comfortable and no acute distress Resp: Effort & Inspection: normal respiratory effort Cardio: Rate: regular rate GI: Palpation (GI): Soft to palpation, not firm, nontender and no guarding Objective Data Active Medications Acetaminophen (Acetaminophen 325 Mg Tablet) 650 mg PO Q6H PRN PRN Reason: Pain, Mild 1-3,fever,headache Albuterol Sulfate (Albuterol Sulfate 90 Mcg 8 Gm Inhaler) 2 puff INHALE Q6H PRN PRN Reason: shortness of breath Carbamazepine (Carbamazepine 200 Mg Tablet) 200 mg PO TID [facility] Last Admin: 11/15/24 07:29 Dose: 200 mg Documented By: JENNY Diphenhydramine HCl (Diphenhydramine Hcl 50 Mg/Ml Vial) 25 mg IVPUSH Q6H PRN PRN Reason: Nausea and Vomiting Last Admin: 11/13/24 19:40 Dose: 25 mg Documented By: ANNAMARIA Heparin Sodium (Porcine) (Heparin Sodium,Porcine 5,000 Unit/Ml Vial) 5,000 unit SUBCUT Q8H [facility] Last Admin: 11/15/24 02:12 Dose: 5,000 unit Documented By: SACHIN Lactated Ringer's (Lr) 1,000 mls @ 80 mls/hr IVCONT .[id number] [facility] Last Admin: 11/15/24 08:02 Dose: 80 mls/hr Documented By: JENNY Melatonin (Melatonin 3 Mg Tablet) 6 mg PO BEDTIME PRN PRN Reason: Insomnia Metoprolol Tartrate (Metoprolol Tartrate 50 Mg Tablet) 50 mg PO BID [facility]; Protocol Last Admin: 11/15/24 07:29 Dose: 50 mg Documented By: JENNY Morphine Sulfate (Morphine Sulfate 4 Mg/Ml Cartridge) 3 mg IVPUSH Q3H PRN; Protocol PRN Reason: Pain, Severe (Pain Scale 7-10) Last Admin: 11/14/24 09:22 Dose: 3 mg Documented By: KATHY Ondansetron HCl (Ondansetron Hcl 4 Mg/2 Ml Vial) 4 mg IVPUSH Q8H PRN PRN Reason: Nausea and Vomiting Last Admin: 11/14/24 09:21 Dose: 4 mg Documented By: KATHY Pantoprazole Sodium (Pantoprazole Sodium 40 Mg/10 Ml Vial) 40 mg IVPUSH DAILY@0630 [facility] Last Admin: 11/15/24 06:12 Dose: 40 mg Documented By: SACHIN Quetiapine Fumarate (Quetiapine Fumarate 100 Mg Tablet) 100 mg PO BEDTIME [facility] Last Admin: 11/14/24 20:03 Dose: 100 mg Documented By: SACHIN Sodium Chloride (0.9 % Sodium Chloride Flush 3 Ml Syringe) 3 ml IVFLUSH QSHIFT [facility] Last Admin: 11/15/24 07:30 Dose: 3 ml Documented By: JENNY Temazepam (Temazepam 15 Mg Capsule) 15 mg PO BEDTIME [facility] Last Admin: 11/14/24 20:03 Dose: 15 mg Documented By: SACHIN Labs 11/15/24 05:15 11/15/24 05:15 Labs: Laboratory Results - last 24 hr 11/14/24 11/14/24 11/15/24 10:45 21:56 05:15 MCV 89.2 88.2 MCH 29.3 29.4 MCHC 32.9 33.3 RDW 14.2 14.3 Plt Count 126 L 105 L MPV 10.3 10.7 Absolute Nucleated RBC 0.000 0.000 Nucleated RBC % (auto) 0.0 0.0 Anion Gap 16 13 Estim Creat Clear Calc 66.6 67.5 Estimated GFR > 60 > 60 Random Glucose 105 86 Calcium 8.6 8.3 L Magnesium 1.4 L* 1.9 C. difficile Tox B Gene NEGATIVE Procedures Date of Service Date of Service: 11/15/24 Progress Note: A&P Assessment and plan (1) Partial small bowel obstruction: Status: Acute Assessment and Plan: Feels better Has BMs and flatus We will clamp NG tube and evaluate later Magnesium replaced Abdomen is soft Time Spent With Patient Time: Total time managing care of this patient today ____ minutes. Quality Stroke Does the patient have a stroke diagnosis?: No VTE Prior VTE?: No VTE Risk Level:: Medical - moderate - high VTE Device Contraindication: N/A - Device Ordered VTE Drug Contraindication: N/A - Med Ordered
--- NOTE | 2024-11-15 13:06 | PC.NURSE ---
NG tube removed by Dr. Regalado,patient tolerated it well
[2024-11-15] MEDS: Albuterol Sulfate 90 MCG 8 GM INHALER 2 PUFF INHALE (13:46)
[2024-11-15 13:49] VITALS: PULSE 85; RESP 16; O2SAT 94
[2024-11-15 15:10] VITALS: BP 115/65; PULSE 95; RESP 16; TEMP 36.7; O2SAT 96
--- NOTE | 2024-11-15 15:29 | PM.EVENT ---
Event Note Date of Service: 11/15/24 Event Note: Seen earlier for afternoon rounds NG tube had been clamped all day Denies any nausea or vomiting I checked residuals - no significant residuals I removed the NG tube Okay to have sips of clears Ambulate Abdomen remained soft and benign Time Spent With Patient Time: Total time managing care of this patient today ____ minutes.
[2024-11-15 19:17] VITALS: BP 127/57; PULSE 99; RESP 18; TEMP 36.9; O2SAT 98
[2024-11-15] MEDS: Temazepam 15 MG CAPSULE PO (22:59)
[2024-11-15] MEDS: QUEtiapine Fumarate 100 MG TABLET PO (22:59)
[2024-11-16] MEDS: Heparin Sodium,Porcine 5,000 UNIT/ML VIAL 5000 UNIT SUBCUT ×3 (03:11→17:15)
[2024-11-16 03:15] VITALS: BP 119/65; PULSE 70; RESP 18; TEMP 36.4; O2SAT 94
[2024-11-16] MEDS: Pantoprazole Sodium 40 MG/10 ML VIAL IVPUSH (06:12)
[2024-11-16 07:08] LABS: Hematocrit 31.1 % (37.0-47.0); Hemoglobin 10.3 g/dl (12.0-16.0); Mean Corpuscular HGB Conc 33.1 g/dl (31.0-35.0); Mean Corpuscular Hemoglobin 29.4 pg (27.0-33.0); Mean Corpuscular Volume 88.9 fL (80.0-98.0); Mean Platelet Volume 10.7 fL (9.4-12.3); Platelet Count 110 X10*3/uL (160-400); Red Cell Distribution Width 14.4 % (11.0-16.0); White Blood Count 2.8 X10*3/uL (4.8-10.8)
[2024-11-16 07:49] VITALS: BP 111/72; PULSE 91; RESP 18; TEMP 36.6; O2SAT 96
[2024-11-16 08:09] LABS: Anion Gap 13 (12-20); Blood Urea Nitrogen 15 mg/dL (9-16); Calcium 7.8 mg/dL (8.4-10.2); Carbon Dioxide 23 mmol/L (22-29); Chloride 104 mmol/L (96-108); Creatinine Clr Calc Pharmacy 77.4; Estimated Glomerular Filt Rate > 60; Glucose Random 65 mg/dL (60-115); Potassium 3.8 mmol/L (3.3-5.1); Sodium 136 mmol/L (135-145)
--- NOTE | 2024-11-16 08:16 | PM.PNGS ---
Subjective Subjective Date of Service: 11/16/24 Interval history: Continues to feel well Has flatus and BMs No nausea or vomiting Denies pain Says she has been drinking water and clear liquids Wants to eat Physical Exam Vital Signs: Vital Signs: Last Vital Signs Temp 98 F 11/16/24 07:49 Pulse 91 11/16/24 07:49 Resp 18 11/16/24 07:49 BP 111/72 11/16/24 07:49 Pulse Ox 96 11/16/24 07:49 O2 Del Method Room Air 11/16/24 07:49 BMI result Body Mass Index 37.3 Const: General: comfortable and no acute distress Resp: Effort & Inspection: normal respiratory effort Cardio: Rate: regular rate GI: Palpation (GI): Soft to palpation, not firm, nontender and no guarding Objective Data Active Medications Acetaminophen (Acetaminophen 325 Mg Tablet) 650 mg PO Q6H PRN PRN Reason: Pain, Mild 1-3,fever,headache Albuterol Sulfate (Albuterol Sulfate 90 Mcg 8 Gm Inhaler) 2 puff INHALE Q6H PRN PRN Reason: shortness of breath Last Admin: 11/15/24 13:46 Dose: 2 puff Documented By: PATRICIA Carbamazepine (Carbamazepine 200 Mg Tablet) 200 mg PO TID [facility] Last Admin: 11/15/24 22:59 Dose: 200 mg Documented By: ABHI Diphenhydramine HCl (Diphenhydramine Hcl 50 Mg/Ml Vial) 25 mg IVPUSH Q6H PRN PRN Reason: Nausea and Vomiting Last Admin: 11/13/24 19:40 Dose: 25 mg Documented By: ANNAMARIA Heparin Sodium (Porcine) (Heparin Sodium,Porcine 5,000 Unit/Ml Vial) 5,000 unit SUBCUT Q8H [facility] Last Admin: 11/16/24 03:11 Dose: 5,000 unit Documented By: ABHI Lactated Ringer's (Lr) 1,000 mls @ 80 mls/hr IVCONT .[id number] [facility] Last Admin: 11/15/24 20:57 Dose: 80 mls/hr Documented By: ABHI Melatonin (Melatonin 3 Mg Tablet) 6 mg PO BEDTIME PRN PRN Reason: Insomnia Metoprolol Tartrate (Metoprolol Tartrate 50 Mg Tablet) 50 mg PO BID [facility]; Protocol Last Admin: 11/15/24 21:01 Dose: 50 mg Documented By: ABHI Morphine Sulfate (Morphine Sulfate 4 Mg/Ml Cartridge) 3 mg IVPUSH Q3H PRN; Protocol PRN Reason: Pain, Severe (Pain Scale 7-10) Last Admin: 11/14/24 09:22 Dose: 3 mg Documented By: KATHY Ondansetron HCl (Ondansetron Hcl 4 Mg/2 Ml Vial) 4 mg IVPUSH Q8H PRN PRN Reason: Nausea and Vomiting Last Admin: 11/14/24 09:21 Dose: 4 mg Documented By: KATHY Pantoprazole Sodium (Pantoprazole Sodium 40 Mg/10 Ml Vial) 40 mg IVPUSH DAILY@0630 [facility] Last Admin: 11/16/24 06:12 Dose: 40 mg Documented By: ABHI Quetiapine Fumarate (Quetiapine Fumarate 100 Mg Tablet) 100 mg PO BEDTIME [facility] Last Admin: 11/15/24 22:59 Dose: 100 mg Documented By: ABHI Sodium Chloride (0.9 % Sodium Chloride Flush 3 Ml Syringe) 3 ml IVFLUSH QSHIFT [facility] Last Admin: 11/16/24 00:57 Dose: Not Given Documented By: ABHI Non-Admin Reason: IV Running Temazepam (Temazepam 15 Mg Capsule) 15 mg PO BEDTIME [facility] Last Admin: 11/15/24 22:59 Dose: 15 mg Documented By: ABHI Labs 11/16/24 05:13 11/16/24 05:13 Labs: Laboratory Results - last 24 hr 11/16/24 05:13 MCV 88.9 MCH 29.4 MCHC 33.1 RDW 14.4 Plt Count 110 L MPV 10.7 Absolute Nucleated RBC 0.000 Nucleated RBC % (auto) 0.0 Anion Gap 13 Estim Creat Clear Calc 77.4 Estimated GFR > 60 Random Glucose 65 Calcium 7.8 L D Procedures Date of Service Date of Service: 11/16/24 Progress Note: A&P Assessment and plan (1) Partial small bowel obstruction: Status: Acute Assessment and Plan: Symptoms resolved Tolerating clears We will start full liquids today Replace potassium Replace magnesium Looks well Abdomen soft and benign Time Spent With Patient Time: Total time managing care of this patient today ____ minutes. Quality Stroke Does the patient have a stroke diagnosis?: No VTE Prior VTE?: No VTE Risk Level:: Medical - moderate - high VTE Device Contraindication: N/A - Device Ordered VTE Drug Contraindication: N/A - Med Ordered
[2024-11-16] MEDS: Metoprolol Tartrate 50 MG TABLET PO ×2 (08:20→20:10)
[2024-11-16] MEDS: carBAMazepine 200 MG TABLET PO ×3 (08:20→20:10)
[2024-11-16] MEDS: 0.9 % Sodium Chloride Flush 3 ML SYRINGE IVFLUSH ×2 (08:20→15:06)
[2024-11-16 08:35] LABS: Magnesium 1.4 mg/dL (1.6-2.6)
--- NOTE | 2024-11-16 09:18 | HO.PM.IMPN ---
Subjective Subjective Date of Service: 11/16/24 Interval History: Reports bowel movement and flatus Physical Exam Vital Signs: Vital Signs: Last Vital Signs Temp 98 F 11/16/24 07:49 Pulse 91 11/16/24 07:49 Resp 18 11/16/24 07:49 BP 111/72 11/16/24 07:49 Pulse Ox 96 11/16/24 07:49 O2 Del Method Room Air 11/16/24 07:49 BMI result Body Mass Index 37.3 Const: General: comfortable and no acute distress Resp: Effort & Inspection: normal respiratory effort Cardio: Rate: regular rate GI: Palpation (GI): Soft to palpation, not firm, nontender and no guarding Objective Data Active Medications Acetaminophen (Acetaminophen 325 Mg Tablet) 650 mg PO Q6H PRN PRN Reason: Pain, Mild 1-3,fever,headache Albuterol Sulfate (Albuterol Sulfate 90 Mcg 8 Gm Inhaler) 2 puff INHALE Q6H PRN PRN Reason: shortness of breath Last Admin: 11/15/24 13:46 Dose: 2 puff Documented By: PATRICIA Carbamazepine (Carbamazepine 200 Mg Tablet) 200 mg PO TID [facility] Last Admin: 11/16/24 08:20 Dose: 200 mg Documented By: JENNY Diphenhydramine HCl (Diphenhydramine Hcl 50 Mg/Ml Vial) 25 mg IVPUSH Q6H PRN PRN Reason: Nausea and Vomiting Last Admin: 11/13/24 19:40 Dose: 25 mg Documented By: ANNAMARIA Heparin Sodium (Porcine) (Heparin Sodium,Porcine 5,000 Unit/Ml Vial) 5,000 unit SUBCUT Q8H [facility] Last Admin: 11/16/24 08:28 Dose: 5,000 unit Documented By: JENNY Lactated Ringer's (Lr) 1,000 mls @ 80 mls/hr IVCONT .[id number] [facility] Last Admin: 11/15/24 20:57 Dose: 80 mls/hr Documented By: ABHI Magnesium Sulfate (Magnesium Sulfate/H2o) 2 gm in 50 mls @ 25 mls/hr IV ONCE ONE Stop: 11/16/24 10:47 Melatonin (Melatonin 3 Mg Tablet) 6 mg PO BEDTIME PRN PRN Reason: Insomnia Metoprolol Tartrate (Metoprolol Tartrate 50 Mg Tablet) 50 mg PO BID [facility]; Protocol Last Admin: 11/16/24 08:20 Dose: 50 mg Documented By: JENNY Morphine Sulfate (Morphine Sulfate 4 Mg/Ml Cartridge) 3 mg IVPUSH Q3H PRN; Protocol PRN Reason: Pain, Severe (Pain Scale 7-10) Last Admin: 11/14/24 09:22 Dose: 3 mg Documented By: KATHY Ondansetron HCl (Ondansetron Hcl 4 Mg/2 Ml Vial) 4 mg IVPUSH Q8H PRN PRN Reason: Nausea and Vomiting Last Admin: 11/14/24 09:21 Dose: 4 mg Documented By: KATHY Pantoprazole Sodium (Pantoprazole Sodium 40 Mg/10 Ml Vial) 40 mg IVPUSH DAILY@0630 [facility] Last Admin: 11/16/24 06:12 Dose: 40 mg Documented By: ABHI Quetiapine Fumarate (Quetiapine Fumarate 100 Mg Tablet) 100 mg PO BEDTIME [facility] Last Admin: 11/15/24 22:59 Dose: 100 mg Documented By: ABHI Sodium Chloride (0.9 % Sodium Chloride Flush 3 Ml Syringe) 3 ml IVFLUSH QSHIFT [facility] Last Admin: 11/16/24 08:20 Dose: 3 ml Documented By: JENNY Temazepam (Temazepam 15 Mg Capsule) 15 mg PO BEDTIME [facility] Last Admin: 11/15/24 22:59 Dose: 15 mg Documented By: ABHI Labs 11/16/24 05:13 11/16/24 05:13 Labs: Laboratory Results - last 24 hr 11/16/24 05:13 MCV 88.9 MCH 29.4 MCHC 33.1 RDW 14.4 Plt Count 110 L MPV 10.7 Absolute Nucleated RBC 0.000 Nucleated RBC % (auto) 0.0 Anion Gap 13 Estim Creat Clear Calc 77.4 Estimated GFR > 60 Random Glucose 65 Calcium 7.8 L D Magnesium 1.4 L* Assessment and Plan (1) CAD (coronary artery disease): Status: Chronic Plan 68F PMH chronic AFib, colon CA status post sigmoid resection and chemotherapy, recurrent small-bowel obstructions, mild aortic stenosis, history of gastric band, hypertension, coronary artery disease, GERD presented with abdominal pain and nausea found to have partial small-bowel obstruction Small-bowel obstruction Management per surgery Acute hypomagnesemia Replace monitor NSVT no further events Chronic atrial fibrillation Continue metoprolol - IV, Xarelto on hold for possible procedure Coronary artery disease Meds on hold due to obstruction CT with concern for cirrhosis Likely nonalcoholic fatty liver, follow up outpatient Quality Stroke Does the patient have a stroke diagnosis?: No VTE Prior VTE?: No VTE Risk Level:: Medical - moderate - high VTE Device Contraindication: N/A - Device Ordered VTE Drug Contraindication: N/A - Med Ordered
[2024-11-16] MEDS: Potassium Chloride ER 20 MEQ TAB.ER.PRT 40 MEQ PO (09:31)
[2024-11-16] MEDS: Magnesium Sulfate/H2O 2 GM/50 ML PIGGYBACK IV (09:31)
[2024-11-16 09:38] VITALS: PULSE 79; RESP 18; O2SAT 97
[2024-11-16] MEDS: Albuterol Sulfate 90 MCG 8 GM INHALER 2 PUFF INHALE (09:46)
[2024-11-16] MEDS: Lactated Ringers 1,000 ML 80 ML IVCONT ×2 (10:34→23:57)
--- NOTE | 2024-11-16 13:04 | MHC.CM.PN ---
pt not discussed at rounds pt is a surgical patient
--- NOTE | 2024-11-16 13:31 | PM.EVENT ---
Event Note Date of Service: 11/16/24 Event Note: Seen on afternoon rounds Tolerating full liquids Feels well Denies abdominal pain Denies nausea or vomiting Abdomen remained soft and benign We will try on regular diet for dinner If she continues to tolerate this, possible DC home tomorrow Time Spent With Patient Time: Total time managing care of this patient today ____ minutes.
[2024-11-16 15:22] VITALS: BP 122/73; PULSE 92; RESP 18; TEMP 36.8; O2SAT 97
[2024-11-16 19:04] VITALS: BP 125/70; PULSE 84; RESP 18; TEMP 36.4; O2SAT 96
[2024-11-16 20:10] VITALS: BP 125/70; PULSE 84
[2024-11-16] MEDS: Temazepam 15 MG CAPSULE PO (21:56)
[2024-11-16] MEDS: QUEtiapine Fumarate 100 MG TABLET PO (21:56)
[2024-11-17] MEDS: Heparin Sodium,Porcine 5,000 UNIT/ML VIAL 5000 UNIT SUBCUT (01:26)
[2024-11-17 03:03] VITALS: BP 110/73; PULSE 98; RESP 18; TEMP 36.4; O2SAT 94
[2024-11-17] MEDS: Pantoprazole Sodium 40 MG/10 ML VIAL IVPUSH (05:07)
[2024-11-17 05:39] LABS: Hemoglobin 10.8 g/dl (12.0-16.0); Mean Corpuscular HGB Conc 33.8 g/dl (31.0-35.0); Mean Corpuscular Hemoglobin 29.6 pg (27.0-33.0); Mean Corpuscular Volume 87.7 fL (80.0-98.0); Platelet Count 111 X10*3/uL (160-400); Red Blood Count 3.65 X10*6/uL (4.20-5.50); Red Cell Distribution Width 14.3 % (11.0-16.0); White Blood Count 3.4 X10*3/uL (4.8-10.8)
[2024-11-17 05:55] LABS: Anion Gap 11 (12-20); Blood Urea Nitrogen 11 mg/dL (9-16); Calcium 7.8 mg/dL (8.4-10.2); Carbon Dioxide 24 mmol/L (22-29); Chloride 106 mmol/L (96-108); Creatinine Clr Calc Pharmacy 74.1; Estimated Glomerular Filt Rate > 60; Glucose Random 92 mg/dL (60-115); Magnesium 1.5 mg/dL (1.6-2.6); Potassium 4.4 mmol/L (3.3-5.1); Sodium 137 mmol/L (135-145)
[2024-11-17] MEDS: Magnesium Sulfate/H2O 2 GM/50 ML PIGGYBACK IV (07:20)
[2024-11-17 07:27] VITALS: BP 161/81; PULSE 96; RESP 17; TEMP 36.8; O2SAT 96
[2024-11-17] MEDS: Metoprolol Tartrate 50 MG TABLET PO (08:00)
[2024-11-17] MEDS: carBAMazepine 200 MG TABLET PO (08:00)
--- NOTE | 2024-11-17 08:38 | MHC.CM.PN ---
Patient medically cleared for dc home self care. Son will provide transport ~10am. RN aware. IMM delivered.
--- NOTE | 2024-11-17 08:49 | P.PNGS_ITS ---
Subjective Subjective Date of Service: 11/17/24 Interval history: Patient tolerated a regular diet last evening and feels great this morning. She feels ready for discharge to home today. Reports several bowel movements yesterday which were formed. Physical Exam 2 Vital Signs: Vital Signs: Last Vital Signs Temp 98.2 F 11/17/24 07:27 Pulse 96 11/17/24 07:27 Resp 17 11/17/24 07:27 BP 161/81 H 11/17/24 07:27 Pulse Ox 96 11/17/24 07:27 O2 Del Method Room Air 11/17/24 07:27 BMI result Body Mass Index 37.3 Const: General: comfortable and no acute distress Resp: Effort & Inspection: normal respiratory effort Cardio: Rate: regular rate GI: Palpation (GI): Soft to palpation, not firm, nontender and no guarding Objective Data Active Medications Acetaminophen (Acetaminophen 325 Mg Tablet) 650 mg PO Q6H PRN PRN Reason: Pain, Mild 1-3,fever,headache Albuterol Sulfate (Albuterol Sulfate 90 Mcg 8 Gm Inhaler) 2 puff INHALE Q6H PRN PRN Reason: shortness of breath Last Admin: 11/16/24 09:46 Dose: 2 puff Documented By: JENNY Carbamazepine (Carbamazepine 200 Mg Tablet) 200 mg PO TID [facility] Last Admin: 11/17/24 08:00 Dose: 200 mg Documented By: MELBA Diphenhydramine HCl (Diphenhydramine Hcl 50 Mg/Ml Vial) 25 mg IVPUSH Q6H PRN PRN Reason: Nausea and Vomiting Last Admin: 11/13/24 19:40 Dose: 25 mg Documented By: ANNAMARIA Heparin Sodium (Porcine) (Heparin Sodium,Porcine 5,000 Unit/Ml Vial) 5,000 unit SUBCUT Q8H [facility] Last Admin: 11/17/24 01:26 Dose: 5,000 unit Documented By: YESENIA Magnesium Sulfate (Magnesium Sulfate/H2o) 2 gm in 50 mls @ 25 mls/hr IV ONCE ONE Stop: 11/17/24 08:57 Last Admin: 11/17/24 07:20 Dose: 25 mls/hr Documented By: MELBA Melatonin (Melatonin 3 Mg Tablet) 6 mg PO BEDTIME PRN PRN Reason: Insomnia Metoprolol Tartrate (Metoprolol Tartrate 50 Mg Tablet) 50 mg PO BID [facility]; Protocol Last Admin: 11/17/24 08:00 Dose: 50 mg Documented By: MELBA Morphine Sulfate (Morphine Sulfate 4 Mg/Ml Cartridge) 3 mg IVPUSH Q3H PRN; Protocol PRN Reason: Pain, Severe (Pain Scale 7-10) Last Admin: 11/14/24 09:22 Dose: 3 mg Documented By: KATHY Ondansetron HCl (Ondansetron Hcl 4 Mg/2 Ml Vial) 4 mg IVPUSH Q8H PRN PRN Reason: Nausea and Vomiting Last Admin: 11/14/24 09:21 Dose: 4 mg Documented By: KATHY Pantoprazole Sodium (Pantoprazole Sodium 40 Mg/10 Ml Vial) 40 mg IVPUSH DAILY@0630 [facility] Last Admin: 11/17/24 05:07 Dose: 40 mg Documented By: YESENIA Quetiapine Fumarate (Quetiapine Fumarate 100 Mg Tablet) 100 mg PO BEDTIME [facility] Last Admin: 11/16/24 21:56 Dose: 100 mg Documented By: YESENIA Sodium Chloride (0.9 % Sodium Chloride Flush 3 Ml Syringe) 3 ml IVFLUSH QSHIFT [facility] Last Admin: 11/17/24 07:40 Dose: Not Given Documented By: MELBA Non-Admin Reason: IV Running Temazepam (Temazepam 15 Mg Capsule) 15 mg PO BEDTIME [facility] Last Admin: 11/16/24 21:56 Dose: 15 mg Documented By: YESENIA Labs 11/17/24 05:13 11/17/24 05:13 Labs: Laboratory Results - last 24 hr 11/17/24 05:13 MCV 87.7 MCH 29.6 MCHC 33.8 RDW 14.3 Plt Count 111 L MPV 10.0 Absolute Nucleated RBC 0.000 Nucleated RBC % (auto) 0.0 Anion Gap 11 L Estim Creat Clear Calc 74.1 Estimated GFR > 60 Random Glucose 92 Calcium 7.8 L Magnesium 1.5 L Procedures Date of Service Date of Service: 11/17/24 Progress Note: A&P Assessment and plan (1) Partial small bowel obstruction: Status: Acute Assessment and Plan: Patient doing quite well this morning tolerating regular diet having bowel movements. Small bowel obstruction now resolved. I will discharge patient to home today. Patient expressed understanding and agrees with the plan. Time Spent With Patient Time: Total time managing care of this patient today ____ minutes. Quality Stroke Does the patient have a stroke diagnosis?: No VTE Prior VTE?: No VTE Risk Level:: Medical - moderate - high VTE Device Contraindication: N/A - Device Ordered VTE Drug Contraindication: N/A - Med Ordered
--- NOTE | 2024-11-17 12:32 | PM.DS ---
DS: Providers Provider Date of Service: 11/17/24 Date of admission: 11/12/24 21:12 Date of discharge: 11/17/24 Primary care physician: Molly Mcgowan MD Attending physician on admission: Ryan Regalado Consults: 11/12/24 21:21 Consult to Hospitalist Routine Comment: Consulting Provider: [facility] Reason For Exam: HTN, CAD on Eliquis Attending physician on discharge: Gunnar Valencia DS: Diagnosis Discharge Diagnosis (1) Partial small bowel obstruction: Status: Resolved DS: Summary Hospital Course Hospital Course: HPI AT ADMISSION: Deidre To is a 68 year old female admitted last night because of the abdominal pain and vomiting. She is actually well known to this service. She has had multiple abdominal surgeries including sigmoid colon resection with ileostomy for colon cancer in 2017, reversal of ileostomy, cholecystectomy and gastric band. These were all done in [place]. She has had multiple episodes of small-bowel obstructions since then. She had moved to the area last year to be with her son. She was actually admitted to the hospital twice this year and the last 1 was in September, for the same reasons. She started to have abdominal pain around lunchtime yesterday along with nausea and vomiting. This persisted throughout the afternoon. She therefore came to the emergency room last night. She says she recalls having flatus all the way until yesterday morning. She does state that she feels better this morning. She says that her abdominal pain is much improved. An NG tube had been inserted last night on admission. She has a history of coronary disease, and with two-vessel CABG, liver cirrhosis, carotid artery disease, hypertension, valvular disease, chronic neck pain and back pain. HOSPITAL COURSE: She was admitted to the surgical service in view of the abdominal pain, nausea and vomiting. CAT scan was suggestive of partial small-bowel obstruction which seems to be secondary to stenosis in her anastomosis in the ileum, good amount of air distally in the colon, fecalization in the small bowel proximal to this anastomosis. There was also note of some thickening of the colon wall and therefore C diff was obtained. Nonoperative measures were continued with NGT for decompression, IVF, serial abd exams. Hospitalist consult was obtained in view of her multiple medical problems. Xarelto was held initially in case she required surgical intervention. She had an uncomplicated hospital course. Her abdominal symptoms improved with conservative measures. Her NGT output decreased, she began passing flatus and her NGT was clamped and then removed on HD#2. Her diet was slowly advanced. Her xarelto was resumed. On the day of discharge, she was tolerating a solid diet without nausea or vomiting. She had multiple bowel movements. Her abdomen was benign and soft, NTND. She was hemodynamically stable. She was discharged to home on 11/17/24 in stable condition. Status at Discharge Functional status at discharge: independent ambulation Overall status at discharge: patient is progressing back to baseline Time Attestation Discharge Coordination Time (in mins): 35 Quality: Safe Use of Opioids Does Pt have an Active Cancer Diagnosis on the Problem List?: No Quality: Stroke Does the patient have a stroke diagnosis?: No Physical Exam Vital Signs: Vital Signs: Last Vital Signs Temp 98.2 F 11/17/24 07:27 Pulse 96 11/17/24 07:27 Resp 17 11/17/24 07:27 BP 161/81 H 11/17/24 07:27 Pulse Ox 96 11/17/24 07:27 O2 Del Method Room Air 11/17/24 07:27 BMI result Body Mass Index 37.3 Const: General: comfortable, no acute distress and alert Orientation/consciousness: patient oriented x3 Resp: Effort & Inspection: normal respiratory effort GI: Inspection: No distended Palpation (GI): Soft to palpation and nontender Skin: General skin exam: no rashes or lesions noted Neuro: General: patient oriented x3 DS: Data Data Completed and Pending Completed studies during hospitalization [Text1]: Procedures Insertion of Infusion Device into Right Basilic Vein, Percutaneous Approach (02/28/24) Discharge Plan Discharge Anticipated Discharge Date/Time: 11/17/24 08:10 Patient Disposition: Home, Self-Care Discharge Diagnosis: partial small bowel obstruction Referrals: Molly Mcgowan MD [Primary Care Provider] - 1 Week Discharge Medications: Continued nystatin 100,000 unit/gram powder 1 appl topical DAILY PRN (Reason: rash) Qty: 30 0RF famotidine 40 mg tablet 40 mg PO DAILY Qty: 90 1RF Xarelto 20 mg tablet 20 mg PO DAILY@1700 Qty: 90 1RF Rx Instructions: must administer with evening meal temazepam 15 mg capsule 15 mg PO BEDTIME midodrine 5 mg tablet 5 mg PO TID PRN (Reason: Low BP) albuterol sulfate 2.5 mg /3 mL (0.083 %) solution for nebulization 2.5 mg inhalation Q6H PRN (Reason: dyspnea) metoprolol tartrate 50 mg Tablet 50 mg PO BID Qty: 180 0RF Protocol: Hold for SBP/HR < HOLD for SBP < : 90 HOLD for HR < : 60 acetaminophen 325 mg Tablet 650 mg PO Q8H PRN (Reason: ARTHRITIS PAIN) aspirin 81 mg Tablet,Delayed Release (Dr/Ec) 81 mg PO DAILY Probiotic 3 billion cell capsule 3,000 mmu cells PO DAILY@0800 Rx Instructions: administer with a meal multivitamin Tablet 1 tab PO DAILY quetiapine 100 mg Tablet 100 mg PO BEDTIME Qty: 90 0RF carbamazepine 200 mg tablet 200 mg PO TID cholecalciferol (vitamin D3) 50 mcg (2,000 unit) capsule 50 mcg PO DAILY Qty: 90 3RF atorvastatin 80 mg tablet 80 mg PO DAILY Qty: 90 3RF ammonium lactate 12 % cream 1 appl topical BID PRN (Reason: Rash) Rx Instructions: APPLIED TO FEET citalopram 40 mg tablet 40 mg PO DAILY ondansetron 8 mg tablet,disintegrating 8 mg translingual Q8H PRN (Reason: Nausea And Vomiting) Qty: 60 6RF No Action magnesium oxide 250 mg magnesium tablet 250 mg PO DAILY Qty: 30 0RF Discharge Orders: Discharge Order (Routine); Ordered 11/17/24 Ordered By: Gunnar Valencia Diet: Advance to usual diet Activity on Discharge: As tolerated Stand Alone Forms: Patient Portal Discharge page Print Language: Turkish Care Plan Goals: rerturn to baseline Health Concerns: recurrent small bowel obstruction Plan of Treatment: resume home meds Assessment: doing well Patient Instructions: Bowel Obstruction (DC) Discharge Date/Time: 11/17/24 09:53
== END 2024-11-17 09:53 | disposition home or self-care (01) | DRG 389 ==
LOC: HO.ED 21:11 → HO.EDOVER 21:26 → HO.S3 11-13 07:24
PROVIDERS: Internal Medicine; Student in an Organized Health Care Education/Training Program; Admitting Provider Surgery; Emergency Provider Student in an Organized Health Care Education/Training Program; PCP Internal Medicine; Visit Provider Surgery
DX: K56.600 Partial intestinal obstruction, unspecified as to cause (principal); I47.20 Ventricular tachycardia, unspecified; I48.19 Other persistent atrial fibrillation; K76.0 Fatty (change of) liver, not elsewhere classified; R94.31 Abnormal electrocardiogram [ECG] [EKG]; I25.10 Atherosclerotic heart disease of native coronary artery without angina pectoris; Z87.891 Personal history of nicotine dependence; Z85.038 Personal history of other malignant neoplasm of large intestine; Z95.1 Presence of aortocoronary bypass graft; E83.42 Hypomagnesemia; Z79.01 Long term (current) use of anticoagulants; Z79.82 Long term (current) use of aspirin; Z79.899 Other long term (current) drug therapy
CPT/HCPCS: 36415; 71045; 74177; 80048; 80076; 81003; 83605; 83690; 83735; 84100; 84484; 85025; 85027; 87493; 93005; 94640; 99285; J1200; J1644; J2270; J2405; J2470; J3475; J7120; Q9967

== ENCOUNTER → 2024-11-12 19:09 | Outpatient (BNV) | payer MEDICARE, SELFPAY | PROVIDERS: Admitting Provider Surgery; Emergency Provider Student in an Organized Health Care Education/Training Program; PCP Internal Medicine; Visit Provider Internal Medicine Cardiovascular Disease | DX: I48.91 Unspecified atrial fibrillation (principal); R94.31 Abnormal electrocardiogram [ECG] [EKG] | CPT/HCPCS: 93010 ==

== ENCOUNTER → 2024-11-12 19:12 | Outpatient (BNV) | payer MEDICARE, SELFPAY | PROVIDERS: Emergency Provider Student in an Organized Health Care Education/Training Program; PCP Internal Medicine; Visit Provider Radiology Diagnostic Radiology | DX: R10.9 Unspecified abdominal pain (principal); R11.10 Vomiting, unspecified | CPT/HCPCS: 74177 ==

== ENCOUNTER 2024-11-12 21:12 | Outpatient (BNV) | payer MEDICARE, SELFPAY | END 2024-11-13 05:40 | PROVIDERS: Admitting Provider Surgery; Emergency Provider Student in an Organized Health Care Education/Training Program; PCP Internal Medicine; Visit Provider Radiology Diagnostic Radiology | DX: Z93.4 Other artificial openings of gastrointestinal tract status (principal) | CPT/HCPCS: 71045 ==

== ENCOUNTER 2024-11-12 21:12 | Outpatient (BNV) | payer MEDICARE, SELFPAY | END 2024-11-14 19:50 | PROVIDERS: Admitting Provider Surgery; Emergency Provider Student in an Organized Health Care Education/Training Program; PCP Internal Medicine; Visit Provider Specialist | DX: Z93.4 Other artificial openings of gastrointestinal tract status (principal) | CPT/HCPCS: 71045 ==

== ENCOUNTER → 2024-11-12 21:12 | Outpatient (BNV) | payer MEDICARE, SELFPAY | PROVIDERS: Admitting Provider Surgery; Emergency Provider Student in an Organized Health Care Education/Training Program; PCP Internal Medicine; Visit Provider Surgery | DX: K56.600 Partial intestinal obstruction, unspecified as to cause (principal) | CPT/HCPCS: 99232; 99499 ==

== ENCOUNTER → 2024-11-12 21:12 | Outpatient (BNV) | payer MEDICARE, SELFPAY | PROVIDERS: Admitting Provider Surgery; Emergency Provider Student in an Organized Health Care Education/Training Program; PCP Internal Medicine; Visit Provider Physician Assistant | DX: I25.10 Atherosclerotic heart disease of native coronary artery without angina pectoris (principal) | CPT/HCPCS: 99223; 99232 ==

== ENCOUNTER 2024-11-27 08:59 | Outpatient (AMB) | payer MEDICARE, SELFPAY ==
--- NOTE | 2024-11-27 09:04 | MHC.PC.OV ---
Vital Signs 11/27/24 09:06 Height 5 ft Weight 182 lb BMI 35.5 BP 100/60 Blood Pressure Location Lt brachial Position Sitting Pulse 72 Pulse Source Pulse Oximeter Pulse Oximetry (%) 98 Oxygen Delivery Method Room Air Intake Visit Reasons: TCM small bowel blockage Intake Note: Pt is here today to f/u TCM for small bowel blockage Allergies No Known Allergies Allergy (Verified 11/27/24 09:48) Medication List - Last Reconciled 11/27/24 by Molly Mcgowan MD acetaminophen 650 mg PO Q8H PRN albuterol sulfate 2.5 mg inhalation Q6H PRN ammonium lactate 12% 1 appl topical BID PRN aspirin 81 mg PO DAILY atorvastatin 80 mg PO DAILY carbamazepine 200 mg PO TID cholecalciferol (vitamin D3) 50 mcg PO DAILY citalopram 40 mg PO DAILY famotidine 40 mg PO DAILY lactobacillus combination no.4 (Probiotic) 3,000 mmu cells PO DAILY@0800 metoprolol tartrate 50 mg See Protocol PO BID midodrine 5 mg PO TID PRN multivitamin 1 tab PO DAILY nystatin 1 appl topical DAILY PRN ondansetron 8 mg translingual Q8H PRN quetiapine 100 mg PO BEDTIME rivaroxaban (Xarelto) 20 mg PO DAILY@1700 temazepam 15 mg PO BEDTIME Tobacco use date assessed: 11/27/24 Fall risk assessment: 1 Fall in past year Last assessed Fall Risk: 11/27/24 Dental Screening Dental Screen Date: 11/27/24 Did you have a dental visit in the last 12 months?: No Did you have a dental problem in the last 6 months where you did not have access to dental care?: No Was dental information given to patient?: Patient declined (patient has dentures) HPI TCM small bowel blockage HPI Details 68 year old lady with PMH significant for chronic AFib, colon CA status post sigmoid resection and chemotherapy, recurrent small-bowel obstructions, mild aortic stenosis, history of gastric band, hypertension, coronary artery disease, GERD presented with abdominal pain and nausea recently [place] [facility] [place] of partial small-bowel obstruction, hre efo TCM ffup. She has been feeling better, still having intermittent episodes of loose stools mixed in with formed stools but able to tolerate regular meals. Noted to have anemia and hypomagnesemia on recent admission, due to persistent diarrhea . Patient questioning diagnosis of short gut syndrome, has been told by surgeon that she does not have it. Has been seen by Dr. Regalado, who as per patient, advised that if she has continues to have repeated bowel obstruction may need surgical resection of intestines in the future. [facility] Medical History (Updated 12/02/24 @ 15:45 by Molly Mcgowan MD) Partial small bowel obstruction C. difficile colitis Tremor Diplopia History of small bowel obstruction Hx of colon cancer, stage III Bipolar 1 disorder CAD (coronary artery disease) Persistent atrial fibrillation Essential hypertension Hyperlipidemia Personal history of nicotine dependence Unsteady gait Thrombocytopenia Anemia Cervical radiculopathy due to degenerative joint disease of spine History of radius fracture Degenerative disc disease, cervical Acquired deafness of left ear Surgical History Status post coronary artery bypass graft History of coronary artery bypass graft x 2 (~2018) History of cardiac catheterization History of partial colectomy (~2015) History of reversal of ileostomy History of resection of small bowel (~2020) History of laparoscopic adjustable gastric banding (~2004) History of laparoscopic cholecystectomy (~2003) History of parotidectomy (~2014) History of cervical discectomy (~2013) History of surgery on right wrist History of colonoscopy History of esophagogastroduodenoscopy (EGD) History of appendectomy (~2003) History of tonsillectomy History of bunionectomy Family History Sister Substance use disorder Insulin dependent type 1 diabetes mellitus Mother Colon cancer Breast cancer Coronary artery disease High cholesterol Essential hypertension Father Heart disease Brother Heart disease Social History Household Members: None Housing: Apartment Do you presently have visiting nurse or other home services: No Unable to assess alcohol history related to: Unable to respond Alcohol intake: never Patient Tobacco Use Status: Former Tobacco user Tobacco use type: Cigarette Years Smoked: (former smoker - onset 30yo, 1ppd x 33yrs, 30pyh, quit 11/2018) e-Cigarette/Vaping Use: Never Used Second Hand Smoke Exposure: No Advance Directives Date on File: 03/02/24 service: No Current occupational status: retired Cognitive needs: No Hearing needs: No Vision needs: Yes Questionnaire PHQ-9 Over the last 2 weeks, how often have you been bothered by any of the following problems? 1. Little interest or pleasure in doing things: not at all 2. Feeling down, depressed, or hopeless: not at all 3. Trouble falling or staying asleep, or sleeping too much: not at all 4. Feeling tired or having little energy: not at all 5. Poor appetite or overeating: not at all 6. Feeling bad about yourself - or that you are a failure or have let yourself or your family down: not at all 7. Trouble concentrating on things, such as reading the newspaper or watching television: not at all 8. Moving or speaking so slowly that other people could have noticed. Or the opposite - being so fidgety or restless that you have been moving around a lot more than usual: not at all 9. Thoughts that you would be better off or of hurting yourself in some way: not at all Total score: 0 Depression Screening Interpretation: Negative Depression Screening Done: Yes 94377 - PHQ-9 Billing: Yes Source: Developed by Drs. Philipp Najera, Nga Sage, Benjamin Berman and colleagues, with an educational ashli from [employer]. Thrive Questionnaire Date Thrive assessed: 11/27/24 I am a: Patient What is your living situation today?: I have a steady place to live Within the past 12 months, did the food you bought not last and you didn't have the money to get more?: Never true Within the past 12 months, did you worry whether your food would run out before you got money to buy more?: Never true Do you have trouble paying for medicines?: Yes Do you have trouble getting transportation to medical appointments?: No Do you have trouble paying your heating and electricity bill?: No Do you have trouble taking care of your child, family member or friend?: No Do you have trouble with day-to-day activities such as bathing, preparing meals, shopping, managing finances, etc.?: No Are you currently unemployed and looking for a job?: No Are you interested in more education?: No Please select the resources that you would like help with: None Currently or been in a relationship where the following occur: No concerns reported THRIVE Score: 0 AUDIT C Alcohol Use Questionnaire (AUDIT-C) 1. How often do you have a drink containing alcohol?: Never Total Score: 0 REY-7 AMB Questionnaire REY-7 Date REY - 7 assessed: 11/27/24 Feeling nervous, anxious, or on edge: 0 = Not at all Not being able to stop or control worryin = Not at all Worrying too much about different things: 0 = Not at all Trouble relaxin = Not at all Being so restless that it is hard to sit still: 0 = Not at all Becoming easily annoyed or irritable: 0 = Not at all Feeling afraid as if something awful might happen: 0 = Not at all Total REY-7 score (0-4 normal; 5-9 mild; 10-14 moderate; 15-21 severe): 0 Source: Developed by Drs. Philipp Najera, Nga Sage, Benjamin Berman and colleagues, with an educational ashli from [employer]. Review of Systems Const Denies fever(s) and Denies poor appetite Eyes Reports requires corrective lenses ENT Denies dysphagia, Denies hearing loss, Denies mouth pain, Denies throat swelling and Denies tongue swelling GI Details: Denies abdominal pain, Denies melena, Denies bloating, Denies hematochezia, Denies constipation, Denies GI cramping, Denies dysphagia, Denies excessive flatus, Denies early satiety, Denies heartburn, Denies nausea, Denies vomiting and Denies hematemesis Reports no additional complaints Musc Reports no additional complaints Skin/Breast Denies lesions and Denies rash Neuro Reports no additional complaints Psych Reports no additional complaints Endo Reports no additional complaints Yonas/Lymph Denies easy bleeding and Denies easy bruising Aller/Immun Denies throat swelling and Denies tongue swelling Physical exam (Primary Care) Vital Signs: Last Vital Signs Pulse 72 11/27/24 09:06 BP 100/60 11/27/24 09:06 Pulse Ox 98 11/27/24 09:06 Oxygen Delivery Method Room Air 11/27/24 09:06 BMI result Body Mass Index 35.5 Tobacco/Smoking Status: Tobacco use Status Tobacco use date assessed 11/27/24 11/27/24 09:13 Patient Tobacco Use Status Former Tobacco user 11/27/24 09:06 Tobacco use type Cigarette 11/27/24 09:06 e-Cigarette/Vaping Use Never Used 11/27/24 09:06 PHQ-9: PHQ-9 Score PHQ-9: Total score 0 12/02/24 15:27 Depression Screening Interpretation: Negative Thrive Assessment: Date of Thrive Assessment Date Thrive assessed 11/27/24 11/27/24 09:13 Currently or been in a relationship where the following occur: No concerns reported Const General: comfortable, no acute distress and alert Orientation/consciousness: patient oriented x3 [facility] General nose exam: Normal external nose present and No nasal discharge present Mouth: Normal oral and palatal mucosa present, oropharynx normal and moist mucous membranes Eyes General: appearance normal, both eyes and all related structures Neck Neck: Yes full ROM, Yes no lymphadenopathy and Yes supple Resp Effort & Inspection: normal respiratory effort and able to speak in complete sentences Auscultation: clear to auscultation bilaterally Cardio Rhythm: abnormal rhythm irregularly irregular GI Palpation (GI): Soft to palpation, nontender and no masses Auscultation: normal bowel sounds Back/Spine/Pelvis Back: No back tenderness Skin General skin exam: no rashes or lesions noted Neuro General: patient oriented x3, moves all extremities, Normal light touch and pain sensation and no focal motor deficits Cranial nerves: Yes CN's II-XII intact bilaterally Cognition (Neuro): normal cognition Extrem General: Yes full ROM, Yes no joint enlargement, Yes no clubbing, cyanosis or edema and Yes no calf tenderness Coding Level of Care Code [facility] MDM <= 14 days Diagnoses History of small bowel obstruction Z87.19 Coronary artery disease involving elim ira heart, unspecified vessel or lesion type, unspecified whether angina present I25.10 Associated angina: unspecified whether angina present Coronary Disease-Associated Artery/Lesion type: unspecified vessel or lesion type [place] vs. transplanted heart: elim ira heart Hyperlipidemia, unspecified hyperlipidemia type E78.5 Hyperlipidemia type: unspecified Essential hypertension I10 Anemia, unspecified type D64.9 Anemia type: unspecified type Gastroesophageal reflux disease, unspecified whether esophagitis present K21.9 Esophagitis presence: esophagitis presence not specified Persistent atrial fibrillation I48.19 Bilateral carotid artery stenosis I65.23 Cirrhosis of liver K74.60 Hypocalcemia E83.51 Hypomagnesemia E83.42 Additional Codes PHQ-9 - 08773 - PHQ-9 Billing: Yes ([id number]) Assessment & Plan Assessment & Plan (1) History of small bowel obstruction: Code(s): Z87.19 - Personal history of other diseases of the digestive system Category: Medical Plan: Currently asymptomatic at present time, do small frequent meals. (2) CAD (coronary artery disease): Code(s): I25.10 - Atherosclerotic heart disease of elim ira coronary artery without angina pectoris Category: Medical Qualifiers: Associated angina: unspecified whether angina present Coronary Disease-Associated Artery/Lesion type: unspecified vessel or lesion type [place] vs. transplanted heart: elim ira heart Qualified Code(s): I25.10 - Atherosclerotic heart disease of elim ira coronary artery without angina pectoris Plan: Currently on aspirin 81 mg daily <del>and</del> <del>metoprolol</del> <del>tartrate</del> <del>50</del> <del>mg</del> <del>1</del> <del>tablet</del> <del>twice</del> <del>a</del> <del>day</del> (3) Hyperlipidemia: Comment: Patient is currently taking 80 mg atorvastatin. Code(s): E78.5 - Hyperlipidemia, unspecified Category: Medical Qualifiers: Hyperlipidemia type: unspecified Qualified Code(s): E78.5 - Hyperlipidemia, unspecified Plan: Currently on atorvastatin 80 mg daily (4) Essential hypertension: Code(s): I10 - Essential (primary) hypertension Category: Medical Plan: Blood pressure at goal of less than 130/80. Continue with current medication. Reinforced importance of following a low sodium diet, getting regular exercise, and lowering stress levels. (5) Anemia: Comment: Most recent hemoglobin 12.3 and HCT is 36.2 Code(s): D64.9 - Anemia, unspecified Category: Medical Qualifiers: Anemia type: unspecified type Qualified Code(s): D64.9 - Anemia, unspecified Plan: Ordered a repeat CBC and iron profile (6) GERD (gastroesophageal reflux disease): Comment: Patient is currently taking famotidine 40 mg p.o. daily. Code(s): K21.9 - Gastro-esophageal reflux disease without esophagitis Category: Medical Qualifiers: Esophagitis presence: esophagitis presence not specified Qualified Code(s): K21.9 - Gastro-esophageal reflux disease without esophagitis Plan: Continue famotidine 40 mg daily (7) Persistent atrial fibrillation: Code(s): I48.19 - Other persistent atrial fibrillation Category: Medical Plan: Repeat EKG still showed presence of atrial fibrillation with incomplete right bundle branch block and left anterior fascicular block. Currently on rivaroxaban 20 mg daily. Has appointment for follow-up with Cardiology in 01/29/2025 (8) Bilateral carotid artery stenosis: Code(s): I65.23 - Occlusion and stenosis of bilateral carotid arteries Category: Medical Plan: Currently on aspirin and rivaroxaban (9) Cirrhosis of liver: Code(s): K74.60 - Unspecified cirrhosis of liver Category: Medical Plan: Has an appointment for follow-up with Dr. Harden on 12/17/2024, patient questioning whether she needs Creon or not (10) Hypocalcemia: Code(s): E83.51 - Hypocalcemia Plan: Ordered comprehensive metabolic (11) Hypomagnesemia: Code(s): E83.42 - Hypomagnesemia Plan: Will check magnesium level Orders: Orders AMB EKG-In Office 11/27/24 I10 - Essential (primary) hypertension, I48.19 - Other persistent atrial fibrillation, Z13.6 - Encounter for screening for cardiovascular disorders, Z86.79 - Personal history of other diseases of the circulatory system Complete Blood Count Auto Diff 11/27/24 D64.9 - Anemia, unspecified, E78.5 - Hyperlipidemia, unspecified, E83.51 - Hypocalcemia, I10 - Essential (primary) hypertension, I25.10 - Atherosclerotic heart disease of elim ira coronary artery without angina pectoris, I48.19 - Other persistent atrial fibrillation, I65.23 - Occlusion and stenosis of bilateral carotid arteries, K21.9 - Gastro-esophageal reflux disease without esophagitis, K74.60 - Unspecified cirrhosis of liver, Z87.19 - Personal history of other diseases of the digestive system IRON PROFILE 11/27/24 D64.9 - Anemia, unspecified, E78.5 - Hyperlipidemia, unspecified, E83.51 - Hypocalcemia, I10 - Essential (primary) hypertension, I25.10 - Atherosclerotic heart disease of elim [place] coronary artery without angina pectoris, I48.19 - Other persistent atrial fibrillation, I65.23 - Occlusion and stenosis of bilateral carotid arteries, K21.9 - Gastro-esophageal reflux disease without esophagitis, K74.60 - Unspecified cirrhosis of liver, Z87.19 - Personal history of other diseases of the digestive system Magnesium 11/27/24 D64.9 - Anemia, unspecified, E78.5 - Hyperlipidemia, unspecified, E83.51 - Hypocalcemia, I10 - Essential (primary) hypertension, I25.10 - Atherosclerotic heart disease of elim ir[place] coronary artery without angina pectoris, I48.19 - Other persistent atrial fibrillation, I65.23 - Occlusion and stenosis of bilateral carotid arteries, K21.9 - Gastro-esophageal reflux disease without esophagitis, K74.60 - Unspecified cirrhosis of liver, Z87.19 - Personal history of other diseases of the digestive system Comprehensive [place]. Panel Fast 11/27/24 D64.9 - Anemia, unspecified, E78.5 - Hyperlipidemia, unspecified, E83.51 - Hypocalcemia, I10 - Essential (primary) hypertension, I25.10 - Atherosclerotic heart disease of elim ir[place] coronary artery without angina pectoris, I48.19 - Other persistent atrial fibrillation, I65.23 - Occlusion and stenosis of bilateral carotid arteries, K21.9 - Gastro-esophageal reflux disease without esophagitis, K74.60 - Unspecified cirrhosis of liver, Z87.19 - Personal history of other diseases of the digestive system Lipid Panel 11/27/24 D64.9 - Anemia, unspecified, E78.5 - Hyperlipidemia, unspecified, E83.51 - Hypocalcemia, I10 - Essential (primary) hypertension, I25.10 - Atherosclerotic heart disease of elim ir[place] coronary artery without angina pectoris, I48.19 - Other persistent atrial fibrillation, I65.23 - Occlusion and stenosis of bilateral carotid arteries, K21.9 - Gastro-esophageal reflux disease without esophagitis, K74.60 - Unspecified cirrhosis of liver, Z87.19 - Personal history of other diseases of the digestive system Vitamin D 25-OH Total 11/27/24 D64.9 - Anemia, unspecified, E78.5 - Hyperlipidemia, unspecified, E83.51 - Hypocalcemia, I10 - Essential (primary) hypertension, I25.10 - Atherosclerotic heart disease of elim ira coronary artery without angina pectoris, I48.19 - Other persistent atrial fibrillation, I65.23 - Occlusion and stenosis of bilateral carotid arteries, K21.9 - Gastro-esophageal reflux disease without esophagitis, K74.60 - Unspecified cirrhosis of liver, Z87.19 - Personal history of other diseases of the digestive system Vitamin B12 and Folate 11/27/24 D64.9 - Anemia, unspecified, E78.5 - Hyperlipidemia, unspecified, E83.51 - Hypocalcemia, I10 - Essential (primary) hypertension, I25.10 - Atherosclerotic heart disease of elim ira coronary artery without angina pectoris, I48.19 - Other persistent atrial fibrillation, I65.23 - Occlusion and stenosis of bilateral carotid arteries, K21.9 - Gastro-esophageal reflux disease without esophagitis, K74.60 - Unspecified cirrhosis of liver, Z87.19 - Personal history of other diseases of the digestive system
[2024-11-27 09:06] VITALS: BP 100/60; PULSE 72; O2SAT 98; BMI 35.5
--- OUTSIDE RECORDS SUMMARY | 2024-11-27 09:31 | XMS_ITS | Patient Health Record ---
Author Organization [facility] [place] Address [address] [place] [address] Care Team Providers Care Games Manager Name Role Phone Juan M WADDELL, Molly Jensen Primary Care Provider Un available Black, Carli Unavailable [phone] Allergies No Known Allergies Reason For Referral No Information Medications Medication SIG (Take, Route, Frequency, Duration) Notes Start Date End Date Status [place] 3 1000 MG 1 capsule Orally Thr [...] Problem Acquired hammer toe of right foot (700855004801 9105) Other hammer toe(s) (acquired), right foot (M20.41) Active confirmed Problem Acquired hammer toe of left foot (062266420244 9103) Other hammer toe(s) (acquired), left foot (M20.42) Active confirmed Problem [id number] 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 confirmed Problem Atherosclerosis of [place] artery of both lower extremities, with unspecified presence of clinical manifestation (I70.203) Active confirmed Vital Signs Height 5 ft 1 in in 01/26/2024 Weight 199 lbs 01/26/2024 BMI 37.6 kg/m2 01/26/2024 Procedures Procedure Date Ordered Date Performed Result Body Sit e 41201-GIVP SKIN LESIONS, 2 TO 4 01/26/2024 N/A [id number] DYSTROPHIC NAILS ANY # 01/26/2024 N/A Encounters Encounter Location Date Provider Diagnosis [facility] [address] 01/26/2024 Carli Black Pain in right toe(s) M79.674 ; Pain in left toe(s) M79.675 ; Xerosis of skin L85.3 ; Drug-induced polyneuropathy G62.0 ; Adverse effect of antineoplastic and immunosuppressive drugs, initial encounter T45.1X5A ; Other hammer toe(s) (acquired), right foot M20.41 and Other hammer toe(s) (acquired), left foot M20.42 [facility] [address] [address] 12/02/2023 [facility] [place] [address] [address] 01/26/2024 [facility] [address] [address] 05/10/2024 Carli Jenkins Assessments Encounter Date Diagnosis [...] Treatment Pending Test Test Name Order Date 24135-TDVE SKIN LESIONS, 2 TO 4 01/26/20 [id number] DYSTROPHIC NAILS ANY # Insurance Providers Payer Name Payer Address Payer Phone Subscriber Number Group Number Insured Name Patient Relationship to Insured Coverage Start Date Coverage End Date Medicare National [employer] [address] [place] [address] [id number] Deidre To Self - patient is the insured [employer] Secondary to Medicare [address] [place] [address] [id number] Deidre To Self - patient is the [...] left foot 1996 [place] Reason [place] [facility] [place]
--- OUTSIDE RECORDS SUMMARY | 2024-11-27 09:31 | XMS_ITS ---
Author Organization [facility] Address [address] [place] [id number] Care Team Providers Care Battery Technician Name Role Phone Juan M WADDELL, Molly Jensen Primary Care Provider Un available Carli Jenkins [phone] Encounters Encounter Location Date Provider Diagnosis [address] [address] 05/10/2024 Carli Jenkins Plan Of Treatment No Information Progress Notes * Deidre TODOB: (68 yo F)Acc No.[id number]:05/10/2024 Progress Note Patient:Deidre SMILEY Provider:?Carli Jenkins DPM :1955???Age:68 Y???Sex:Female D ate:05/10/2024 Address:[address] [place] [id number] Pcp:Sumanth Orozco Subjective: * Chief Complaints: * ??? * Medical History:? Objective: * Vitals:? Assessment: Plan: * Treatment: * Images: * The named appointment provid er may or may not be the originator of this progress note, and it is not deemed complete until electronically signed by the appointment provider. Sign off status: Pending * Provider:?Carli Jenkins DPM Date:?2023 Generated for Steve hernandez/Yasmeen/eTransmitting on:?11/27/2024 09:30 AM EST
--- OUTSIDE RECORDS SUMMARY | 2024-11-27 09:31 | XMS_ITS ---
Author Organization [facility] Address [address] [facility] [place] [address] Care Team Providers Care Beading Installer Name Role Phone Juan M WADDELL, Molly Jensen Primary Care Provider Un available Black, Carli Unavailable [phone] REASON FOR VISIT Secondary Ins Encounters Encounter [facility] Date [facility] [address] [address] 01/26/2024 Carli Black Plan Of Treatment No Information Progress Notes * Deidre TODOB: (68 yo F)Acc No.[id number]:01/26/2024 Patient:?Yousuf Deidre :1955???Age:68 Y???Sex:Female Address:[address] [place] [address], [place] [address] * true * Date:? Generated for Steve hernandez/Yasmeen/eTransmitting on:?11/27/2024 09:30 AM EST
== END 2024-11-27 10:22 | disposition home or self-care (01) ==
PROVIDERS: PCP Internal Medicine; Visit Provider Internal Medicine
DX: I48.19 Other persistent atrial fibrillation (principal); K74.60 Unspecified cirrhosis of liver; Z87.19 Personal history of other diseases of the digestive system; I25.10 Atherosclerotic heart disease of native coronary artery without angina pectoris; E78.5 Hyperlipidemia, unspecified; I10 Essential (primary) hypertension; D64.9 Anemia, unspecified; K21.9 Gastro-esophageal reflux disease without esophagitis; I65.23 Occlusion and stenosis of bilateral carotid arteries; E83.51 Hypocalcemia; E83.42 Hypomagnesemia

== ENCOUNTER 2024-11-27 08:59 | Outpatient (REF) | payer MEDICARE, SELFPAY ==
--- OUTSIDE RECORDS SUMMARY | 2024-11-27 12:02 | XMS_ITS ---
Author Organization [facility] Address [address] [place] [address] Care Team Providers Care Optical Lathe Operator Name Role Phone Juan M WADDELL, Molly Jensen Primary Care Provider Un available Black, Carli Unavailable [phone] REASON FOR VISIT No Show Encounters Encounter Location Date Provider Diagnosis [facility] [address] [place] [address] 05/10/2024 Carli Black Plan Of Treatment No Information Progress Notes * Deidre TODOB: (68 yo F)Acc No.[id number]:05/10/2024 Patient:?YousufErinDeidre :1955???Age:68 Y???Sex:Female Address:[address] [place] [address] [place] [address] * true * Date:? Generated for Radhai david/Yasmeen/eTransmitting on:?11/27/2024 12:01 PM EST
[2024-11-27 13:09] LABS: MANUAL DIFF FLAG NO
[2024-11-27 13:18] LABS: Basophils Percent Auto 0.9 % (0-2); Eosinophils Absolute Auto 0.2 X10*3/uL (0.0-0.4); Eosinophils Percent Auto 4.8 % (0-4); Hematocrit 38.2 % (37.0-47.0); Hemoglobin 12.6 g/dl (12.0-16.0); Imm Gran Abs Auto 0.02 X10*3/uL (0.00-0.03); Imm Gran Pct Auto 0.5 % (0.0-0.4); Lymphocytes Absolute Auto 0.7 X10*3/uL (1.2-4.9); Lymphocytes Percent Auto 14.9 % (20-40); Mean Corpuscular Hemoglobin 28.6 pg (27.0-33.0); Mean Corpuscular Volume 86.6 fL (80.0-98.0); Mean Platelet Volume 11.2 fL (9.4-12.3); Monocytes Absolute Auto 0.7 X10*3/uL (0.1-1.2); Monocytes Percent Auto 15.3 % (2-11); Neutrophils Absolute Auto 2.8 x10*3/uL (2.0-8.3); Neutrophils Percent Auto 63.6 % (45-73); Platelet Count 186 X10*3/uL (160-400); Red Blood Count 4.41 X10*6/uL (4.20-5.50); Red Cell Distribution Width 13.9 % (11.0-16.0); White Blood Count 4.4 X10*3/uL (4.8-10.8)
[2024-11-27 14:07] LABS: Alanine Aminotransferase 29 U/L (0-31); Albumin Level 3.5 g/dL (3.5-5.0); Alkaline Phosphatase 177 U/L (39-117); Anion Gap 9 (12-20); Aspartate Amino Transferase 53 U/L (5-31); Bilirubin Total 0.8 mg/dL (0.0-1.0); Blood Urea Nitrogen 11 mg/dL (9-16); Calcium 8.6 mg/dL (8.4-10.2); Carbon Dioxide 24 mmol/L (22-29); Chloride 103 mmol/L (96-108); Cholesterol 98 mg/dL (<200); Estimated Glomerular Filt Rate > 60; Glucose Fasting 88 mg/dL (60-99); HDL Cholesterol 34 mg/dL (>40); Iron 53 mcg/dL (30-160); LDL Cholesterol Calculated 43 mg/dL (<100); Magnesium 1.4 mg/dL (1.6-2.6); Percent Iron Saturation 16 % (15-50); Potassium 4.4 mmol/L (3.3-5.1); Sodium 132 mmol/L (135-145); Total Iron Binding Capacity 327 mcg/dL (228-428); Total Protein 7.6 g/dL (6.5-8.0); Triglycerides 109 mg/dL (<150); Unsaturated Iron Binding 274 ug/dL; Vitamin D 25-OH Total 42.6 ng/mL (>30)
[2024-11-27 14:08] LABS: Folate 14.7 ng/mL (> or = 4.0); Vitamin B12 482 pg/mL (200-900)
== END 2024-11-27 09:00 | disposition home or self-care (01) ==
LOC: HO.HMGCLDS 08:59
PROVIDERS: PCP Internal Medicine; Visit Provider Internal Medicine
DX: I25.10 Atherosclerotic heart disease of native coronary artery without angina pectoris (principal); E78.5 Hyperlipidemia, unspecified; I10 Essential (primary) hypertension; D64.9 Anemia, unspecified; K21.9 Gastro-esophageal reflux disease without esophagitis; I48.19 Other persistent atrial fibrillation; I65.23 Occlusion and stenosis of bilateral carotid arteries; K74.60 Unspecified cirrhosis of liver; E83.42 Hypomagnesemia; E83.51 Hypocalcemia; Z87.19 Personal history of other diseases of the digestive system; Z79.82 Long term (current) use of aspirin; Z79.899 Other long term (current) drug therapy
CPT/HCPCS: 36415; 80053; 80061; 82306; 82607; 82746; 83540; 83735; 85025; 93005; 96127; 99495

== ENCOUNTER 2024-12-06 10:11 | Outpatient (REF) | payer MEDICARE, SELFPAY ==
[2024-12-06 14:13] LABS: Anion Gap 12 (12-20); Blood Urea Nitrogen 12 mg/dL (9-16); Carbon Dioxide 23 mmol/L (22-29); Chloride 105 mmol/L (96-108); Estimated Glomerular Filt Rate > 60; Glucose Fasting 89 mg/dL (60-99); Magnesium 1.5 mg/dL (1.6-2.6); Potassium 4.6 mmol/L (3.3-5.1); Sodium 135 mmol/L (135-145)
== END 2024-12-06 10:12 | disposition home or self-care (01) ==
LOC: HO.HMGCLDS 10:11
PROVIDERS: PCP Internal Medicine; Visit Provider Internal Medicine
DX: E83.42 Hypomagnesemia (principal); E87.1 Hypo-osmolality and hyponatremia
CPT/HCPCS: 36415; 80048; 83735

== ENCOUNTER → 2024-12-17 11:10 | Outpatient (BNVA) | payer MEDICARE, SELFPAY | PROVIDERS: PCP Internal Medicine; Visit Provider Internal Medicine | DX: K52.9 Noninfective gastroenteritis and colitis, unspecified (principal); K74.60 Unspecified cirrhosis of liver; K21.9 Gastro-esophageal reflux disease without esophagitis; I85.00 Esophageal varices without bleeding; I48.19 Other persistent atrial fibrillation; E66.9 Obesity, unspecified; Z87.19 Personal history of other diseases of the digestive system; Z68.35 Body mass index [BMI] 35.0-35.9, adult | CPT/HCPCS: 99212 ==

== ENCOUNTER 2024-12-24 11:38 | Outpatient (REF) | payer MEDICARE, SELFPAY ==
--- OUTSIDE RECORDS SUMMARY | 2024-12-24 12:59 | XMS_ITS | Patient Health Record ---
Author Organization [facility] Ur[facility] - So [facility] Address [address] [place] [address] Support Name Relationship Address Phone Deidre To Guarantor Unknown [phone] Reason For Referral No Information Plan Of Treatment No Information Insurance Providers Payer Name Payer Address Payer Phone Subscriber Number Group Number Insured Name Patient Relationship to Insured Coverage Start Date Coverage End Date Medicare [address] [address] [place] [address] [id number] Deidre To Self - patient is the insured Pre Op Covid Testing not for submission KHRIS cotto [id number] preop Deidre To Self - patient is the insured
--- OUTSIDE RECORDS SUMMARY | 2024-12-24 12:59 | XMS_ITS ---
Author Organization [facility] Address [address] [place] [address] Care Team Providers Care Respiratory Care Faculty Name Role Phone Juan M WADDELL, Molly Jensen Primary Care Provider Un available Carli Jenkins [phone] Encounters Encounter Location Date Provider Diagnosis [address] [address] 05/10/2024 Carli Jenkins Plan Of Treatment No Information Progress Notes * Deidre TODOB: (69 yo F)Acc No.[id number]:05/10/2024 Progress Note Patient:Deidre SMILEY Provider:?Carli Jenkins DPM :1955???Age:68 Y???Sex:Female D ate:05/10/2024 Address:[address] [place] [address] Pcp:Sumanth Orozco Subjective: * Chief Complaints: * ??? * Medical History:? Objective: * Vitals:? Assessment: Plan: * Treatment: * Images: * The named appointment provid er may or may not be the originator of this progress note, and it is not deemed complete until electronically signed by the appointment provider. Sign off status: Pending * Provider:?Carli Jenkins DPM Date:?2023 Generated for Steve hernandez/Yasmeen/eTransmitting on:?12/24/2024 12:58 PM EST
--- OUTSIDE RECORDS SUMMARY | 2024-12-24 12:59 | XMS_ITS ---
Author Organization [facility] Address [address] [place] [address] Care Team Providers Care Solar Sales Name Role Phone Juan M WADDELL, Molly Jensen Primary Care Provider Un available Black, Carli Unavailable [phone] REASON FOR VISIT No Show Encounters Encounter Location Date Provider Diagnosis [facility] [address] [place] [address] 05/10/2024 Carli Black Plan Of Treatment No Information Progress Notes * Deidre TODOB: (68 yo F)Acc No.[id number]:05/10/2024 Patient:?YousufErinDeidre :1955???Age:68 Y???Sex:Female Address:[address] [place] [address] [place] [address] * true * Date:? Generated for Radhai david/Yasmeen/eTransmitting on:?12/24/2024 12:59 PM EST
--- OUTSIDE RECORDS SUMMARY | 2024-12-24 12:59 | XMS_ITS | Clinical Summary ---
Author Organization [facility] Address [address] [place] [address] Care Team Providers Care Backup Administrative Coordinator Name Role Phone Andrade Robles MD Primary Care Provider [phone] Surgical History Surgery Date Site/Laterality Comments COLECTOMY PROCEDURE:COLECTOMY SALIVARY GLAND SURGERY PROCEDURE:SALIVARY GLAND SURGERY CERVICAL SPINE SURGERY PROCEDURE:CERVICAL SPINE SURGERY ORIF WRIST FRACTURE Left PROCEDURE:ORIF WRIST FRACTURE CORONARY ARTERY BYPASS GRAFT 11/30/2018 N/A PROCEDURE:CORONARY ARTERY BYPASS GRAFT;COMMENT:Procedure: CORONARY ARTERY BYPASS GRAFTING - ON PUMP; Surgeon: Humberto Fontana MD; Location: [facility] CARDIAC OPERATING ROOM; Service: Cardiovascular; Laterality: N/A; OTHER SURGICAL HISTORY 11/30/2018 N/A PROCEDURE:TRANSESOPHAGEAL ECHOCARDIOGRAM (GRETEL) (CONTRAST/3D PRN);COMMENT:Procedure: TRANSESOPHAGEAL ECHOCARDIOGRAPHY; Surgeon: Humberto Fontana MD; Location: [facility] CARDIAC OPERATING ROOM; Service: Cardiovascular; Laterality: N/A; CARDIAC CATHETERIZATION 11/28/2018 Right PROCEDURE:CARDIAC CATHETERIZATION;COMMENT:Proced ure: LEFT HEART CATHETERIZATION; Surgeon: Saman Ibarra MD; Location: [facility] CARDIAC CAMPAIGN MARKETING MANAGER; Service: Cardiology; Laterality: Right; Medical History Medical History Date Comments Colon cancer (CMS/HCC) 2015 DX:Colon cancer (HCC);COMMENT:s/p resection and chemo Neuropathy DX:Neuropathy Bipolar 1 disorder (CMS/HCC) DX: Bipolar 1 disorder (HCC) Anxiety DX:Anxiety GERD (gastroesophageal reflux disease) DX:GERD (gastroesophageal reflux disease) HTN (hypertension) DX:HTN (hyper tension) Hyperlipidemia DX:Hyperlipidemi a Family History Medical History Relation Name Comments Heart attack Brother Heart attack Father Coronary artery disease Sister 1 PCI and stents Coronary artery disease Sister 2 PCI and stents Relation Name Status Comments Brother Father Sister 1 Sister 2 Social History Tobacco Use Types Packs/Day Years Used Date Smoking Tobacco: Former Cigarettes Q uit: 11/30/2018 Smokeless Tobacco: Current Alcohol Use Standard Drinks/Week Comments No 0 (1 standard drink = 0.6 oz pur e alcohol) Comments Unknown Sex and Gender Information Value Date Recorded Sex Assigned at Not on file Legal Sex Female 12:47 PM EST Gender Identity Not on file Sexual Orientation Not on file Obstetrics History Plan of Treatment Health Maintenance Due Date Last Done Comments Breast Cancer Screening 1955 DTaP,Tdap,and Td Vaccines (1 - Tdap) 1962 Pneumococcal Vaccine: 50+ Ye ars (1 of 1 - PCV) 2005 Zoster Vaccines (1 of 2) 2005 COVID-19 Vaccine ( - 2023-2 5 season) 2024 Influenza Vaccine (#1) 2024 RSV Immunization Patients 60 + Years Old (1 - 1-dose 75+ series) 2030 HIB Vaccines Aged Out No longer eligi ble based on patient's age to complete this topic HPV Vaccines Aged Out No longer eligi ble based on patient's age to complete this topic Hepatitis A Vaccines Aged Out No long er eligible based on patient's age to complete this topic Hepatitis B Vaccines Aged Out No long er eligible based on patient's age to complete this topic IPV Vaccines Aged Out No longer eligi ble based on patient's age to complete this topic MMR Vaccines Aged Out No longer eligi ble based on patient's age to complete this topic Meningococcal ACWY Vaccine Aged Out N o longer eligible based on patient's age to complete this topic Meningococcal B Vacine Aged Out No lo nger eligible based on patient's age to complete this topic RSV Immunization Patients Un juliette 20 months Aged Out No longer eligible b ased on patient's age to complete this topic Varicella Vaccines Aged Out No longer eligible based on patient's age to complete this topic Medical Devices Implanted Type Area Dry Charge Process Attendant Device Identifier Shelf Expiration Date Model / Serial / Lot Device Angio-Seal Vip .035in 70cm 6fr [employer] Guide[employer] - [id number] Implanted:11/28 (Quantity not on file) [id number] / / Care Teams Backup Administrative Coordinator Relationship Specialty Start Date End Date Andrade Robles MD [address] [facility] [place] [id number] PCP - General Cardiology 11/27/18
--- OUTSIDE RECORDS SUMMARY | 2024-12-24 12:59 | XMS_ITS | Patient Health Record ---
Author Organization [facility] Address [address] [place] [address] Care Team Providers Care Gi Asst Name Role Phone Juan M WADDELL, Molly Jensen Primary Care Provider Un available Black, Carli Unavailable [phone] Allergies No Known Allergies Reason For Referral No Information Medications Medication SIG (Take, Route, Frequency, Duration) Notes Start Date End Date Status [place] 3 1000 MG 1 capsule Orally Thr [...] Problem Acquired hammer toe of right foot (286062105853 9105) Other hammer toe(s) (acquired), right foot (M20.41) Active confirmed Problem Acquired hammer toe of left foot (183760396142 9103) Other hammer toe(s) (acquired), left foot (M20.42) Active confirmed Problem 918581012 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 confirmed Problem Atherosclerosis of [place] artery of both lower extremities, with unspecified presence of clinical manifestation (I70.203) Active confirmed Vital Signs Height 5 ft 1 in in 01/26/2024 Weight 199 lbs 01/26/2024 BMI 37.6 kg/m2 01/26/2024 Procedures Procedure Date Ordered Date Performed Result Body Sit e 02329-VXRM SKIN LESIONS, 2 TO 4 01/26/2024 N/A O3502-OELZADSB DYSTROPHIC NAILS ANY # 01/26/2024 N/A Encounters Encounter Location Date Provider Diagnosis [facility] [address] [address] 01/26/2024 Carli Jenkins Pain in right toe(s) M79.674 ; Pain in left toe(s) M79.675 ; Xerosis of skin L85.3 ; Drug-induced polyneuropathy G62.0 ; Adverse effect of antineoplastic and immunosuppressive drugs, initial encounter T45.1X5A ; Other hammer toe(s) (acquired), right foot M20.41 and Other hammer toe(s) (acquired), left foot M20.42 [facility] [address] [address] 01/26/2024 [facility] [address] 05/10/2024 Carli Jenkins Assessments Encounter Date Diagnosis [...] Treatment Pending Test Test Name Order Date 18215-OEOA SKIN LESIONS, 2 TO 4 01/26/20 L2208-ZNTINSUB DYSTROPHIC NAILS ANY # Insurance Providers Payer Name Payer Address Payer Phone Subscriber Number Group Number Insured Name Patient Relationship to Insured Coverage Start Date Coverage End Date Medicare National [facility] [address] [place] [address] [id number] Deidre To Self - patient is the insured AARP Secondary to Medicare [address] [place] [id number] Deidre To Self - patient is the [...] left foot 1996 Hospitalization History Reason Date(Month/Year) [facility] -3 day stay -fall 02/04
--- OUTSIDE RECORDS SUMMARY | 2024-12-24 12:59 | XMS_ITS ---
Author Organization [facility] Address [address] [facility] [place] [address] Care Team Providers Care Hand Miter Operator Name Role Phone Juan M WADDELL, Molly Jensen Primary Care Provider Un available Black, Carli Unavailable [phone] REASON FOR VISIT Secondary Ins Encounters Encounter Location Date [facility] [address] [address] 01/26/2024 Carli Black Plan Of Treatment No Information Progress Notes * Deidre TODOB: (68 yo F)Acc No.[id number]:01/26/2024 Patient:?Yousuf Deidre :1955???Age:68 Y???Sex:Female Address:[address] [place] [address], [place] [address] * true * Date:? Generated for Steve hernandez/Yasmeen/eTransmitting on:?12/24/2024 12:58 PM EST
[2024-12-24 13:32] LABS: INTERNATIONAL NORM RATIO 1.6 (0.9-1.1); Prothrombin Time 18.4 SEC (10.9-12.4)
[2024-12-24 13:42] LABS: Iron 46 mcg/dL (30-160); Magnesium 1.3 mg/dL (1.6-2.6); Percent Iron Saturation 15 % (15-50); Total Iron Binding Capacity 316 mcg/dL (228-428); Unsaturated Iron Binding 270 ug/dL
[2024-12-24 13:59] LABS: Ferritin 38 ng/mL (10-250); Hepatitis A Antibody IgG Nonreactive (Nonreactive); TSH reflex Free T4 3.88 uIU/mL (0.32-4.0); ~Hepatitis A Antibody IgG 0.88 S/CO (0.00-0.99)
[2024-12-24 14:23] LABS: HBS Num1 158.68 mIU/mL (0-7.99); HBc Num1 0.69 S/CO (0.00-0.79); HIV AB/AG Nonreactive (Nonreactive); HIV Num 1 0.06 S/CO (0.00-0.99); Hepatitis B Core Antibody Nonreactive (Nonreactive); Hepatitis B Surface Antigen Negative (Negative); ~HepC Num1 0.29 S/CO (0.00-0.79); ~Hepatitis B Surface Antibody REACTIVE (Nonreactive); ~Hepatitis C Antibody Nonreactive (Nonreactive)
[2024-12-25 08:59] LABS: Alpha 1 Anti-trypsin 117 mg/dL (83-199); Ceruloplasmin 28 mg/dL (14-48)
[2024-12-25 12:09] LABS: Alpha Fetoprotein 1.5 ng/mL
[2024-12-25 18:13] LABS: Transglutaminase IgA <1.0 U/mL
[2024-12-26 13:15] LABS: Mitochondrial Antibodies NEGATIVE (NEGATIVE)
[2024-12-28 04:19] LABS: Liver Kidney Microsomal Ab <=20.0 U (<=20.0); Smooth Muscle Antibody <20 U (<20)
[2025-01-01 11:58] LABS: Anti Nuclear Antibody Screen NEGATIVE (NEGATIVE)
== END 2024-12-24 11:39 | disposition home or self-care (01) ==
LOC: HO.HMGCLDS 11:38
PROVIDERS: PCP Internal Medicine; Referring Provider Internal Medicine; Visit Provider Internal Medicine
DX: E83.42 Hypomagnesemia (principal); K74.60 Unspecified cirrhosis of liver; K58.0 Irritable bowel syndrome with diarrhea; Z11.59 Encounter for screening for other viral diseases; Z72.89 Other problems related to lifestyle
CPT/HCPCS: 36415; 82103; 82105; 82390; 82728; 83540; 83735; 84443; 85610; 86015; 86038; 86364; 86376; 86381; 86704; 86706; 86708; 86803; 87340; 87389

== ENCOUNTER 2024-12-31 12:03 | Outpatient (REF) | payer MEDICARE, SELFPAY ==
[2024-12-31 13:50] LABS: Magnesium 1.4 mg/dL (1.6-2.6)
== END 2024-12-31 12:04 | disposition home or self-care (01) ==
LOC: HO.HMGCLDS 12:03
PROVIDERS: PCP Internal Medicine; Visit Provider Internal Medicine
DX: K52.9 Noninfective gastroenteritis and colitis, unspecified (principal); E83.42 Hypomagnesemia
CPT/HCPCS: 36415; 83735

== ENCOUNTER 2025-01-03 11:32 | Outpatient (REF) | payer MEDICARE, SELFPAY ==
--- OUTSIDE RECORDS SUMMARY | 2025-01-03 12:54 | XMS_ITS | Patient Health Record ---
Author Organization [facility] Address [address] [place] [address] Care Team Providers Care [employer] Team Member Name Role Phone Juan M WADDELL, Molly Jensen Primary Care Provider Un available Black, Carli Unavailable [phone] Allergies No Known Allergies Reason For Referral No Information Medications Medication SIG (Take, Route, Frequency, Duration) Notes Start Date End Date Status [place] 3 1000 MG 1 capsule Orally Thr [...] Problem Acquired hammer toe of right foot (614677581576 9105) Other hammer toe(s) (acquired), right foot (M20.41) Active confirmed Problem Acquired hammer toe of left foot (757047386638 9103) Other hammer toe(s) (acquired), left foot (M20.42) Active confirmed Problem 772924622 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 confirmed Problem Atherosclerosis of [place] artery of both lower extremities, with unspecified presence of clinical manifestation (I70.203) Active confirmed Vital Signs Height 5 ft 1 in in 01/26/2024 Weight 199 lbs 01/26/2024 BMI 37.6 kg/m2 01/26/2024 Procedures Procedure Date Ordered Date Performed Result Body Sit e 81199-KISD SKIN LESIONS, 2 TO 4 01/26/2024 N/A J7513-HNDCTZNF DYSTROPHIC NAILS ANY # 01/26/2024 N/A Encounters Encounter Location Date Provider Diagnosis [facility] [address] [address] 01/26/2024 Carli Jenkins Pain in right toe(s) M79.674 ; Pain in left toe(s) M79.675 ; Xerosis of skin L85.3 ; Drug-induced polyneuropathy G62.0 ; Adverse effect of antineoplastic and immunosuppressive drugs, initial encounter T45.1X5A ; Other hammer toe(s) (acquired), right foot M20.41 and Other hammer toe(s) (acquired), left foot M20.42 [facility] [address] [address] 01/26/2024 [facility] [address] 05/10/2024 Carli Jenkins Assessments Encounter Date Diagnosis [...] Treatment Pending Test Test Name Order Date 99261-CYFJ SKIN LESIONS, 2 TO 4 01/26/20 E2290-EUTTZQTB DYSTROPHIC NAILS ANY # Insurance Providers Payer Name Payer Address Payer Phone Subscriber Number Group Number Insured Name Patient Relationship to Insured Coverage Start Date Coverage End Date Medicare National [facility] [address] [place] [address] [id number] Deidre To Self - patient is the insured AARP Secondary to Medicare [address] [place] [id number] Deidre To Self - patient is the [...] left foot 1996 Hospitalization History Reason Date(Month/Year) [facility] -3 day stay -fall 02/04
--- OUTSIDE RECORDS SUMMARY | 2025-01-03 12:54 | XMS_ITS ---
Author Organization [facility] Address [address] [place] [address] Care Team Providers Care Maritime Pilot Name Role Phone Juan M WADDELL, Molly Jensen Primary Care Provider Un available Black, Carli Unavailable [phone] REASON FOR VISIT No Show Encounters Encounter Location Date Provider Diagnosis [facility] [address] [place] [address] 05/10/2024 Carli Black Plan Of Treatment No Information Progress Notes * Deidre TODOB: (68 yo F)Acc No.[id number]:05/10/2024 Patient:?YousufErinDeidre :1955???Age:68 Y???Sex:Female Address:[address] [place] [address] [place] [address] * true * Date:? Generated for Radhai david/Yasmeen/eTransmitting on:?01/03/2025 12:53 PM EST
--- OUTSIDE RECORDS SUMMARY | 2025-01-03 12:54 | XMS_ITS | Clinical Summary ---
Author Organization [facility] Address [address] [place] [address] Care Team Providers Care Grinder Tender Name Role Phone Andrade Robles MD Primary Care Provider [phone] Surgical History Surgery Date Site/Laterality Comments COLECTOMY [...] Ibarra MD; Location: [facility] CARDIAC FIELD APPLICATION ENGINEER; Service: Cardiology; Laterality: Right; Medical History Medical [...] 1955 DTaP,Tdap,and Td Vaccines (1 - Tdap) 1974 Pneumococcal Vaccine: 50+ Ye ars (1 of [...] this topic Medical Devices Implanted Type Area Log Loader Device Identifier Shelf Expiration Date Model / Serial / Lot Device Angio-Seal Vip .035in 70cm 6fr [employer] Guidewire - [id number] Implanted:11/28 (Quantity not on file) [facility] [id number] / / Care Teams Grinder Tender Relationship Specialty Start Date End Date Andrade Robles MD [address] [place] [id number] PCP - General Cardiology 11/27/18
--- OUTSIDE RECORDS SUMMARY | 2025-01-03 12:54 | XMS_ITS ---
Author Organization [facility] Address [address] [place] [address] Care Team Providers Care Big Data Analytics Lead Name Role Phone Juan M WADDELL, Molly Jensen Primary Care Provider Un available Carli Jenkins [phone] Encounters Encounter Location Date Provider Diagnosis [address] [address] 05/10/2024 Carli Jenkins Plan Of Treatment No Information Progress Notes * Deidre TODOB: (69 yo F)Acc No.[id number]:05/10/2024 Progress Note Patient:Deidre SMILEY Provider:?Carli Jenkins DPM :1955???Age:68 Y???Sex:Female D ate:05/10/2024 Address:[address] [place] [address] Pcp:Sumanth Orozco Subjective: * Chief Complaints: * ??? * Medical History:? Objective: * Vitals:? Assessment: Plan: * Treatment: * Images: * The named appointment provid er may or may not be the originator of this progress note, and it is not deemed complete until electronically signed by the appointment provider. Sign off status: Pending * Provider:?Carli Jenkins DPM Date:?2023 Generated for Steve hernandez/Yasmeen/eTransmitting on:?01/03/2025 12:54 PM EST
--- OUTSIDE RECORDS SUMMARY | 2025-01-03 12:54 | XMS_ITS | Clinical Summary ---
Author Organization [facility] Address [address] [place] [address] Care Team Providers Care Dressing Room Attendant Name Role Phone Andrade Robles MD Primary Care Provider [phone] Allergies No known active allergies Medications Medication Sig Dispensed Refills Start Date End Date Status aspirin EC 81 MG tablet Take 81 mg by mouth daily. 0 Active ezetimibe (ZETIA) tablet 10 mg Take 10 mg by mouth daily. 0 Active omeprazole (PriLOSEC) 20 MG capsule Take 20 mg by mouth 2 (two) times a day. 0 Active cholestyramine light 4 g packet Take 4 g by mouth daily as needed. 0 Active citalopram (CELEXA) 40 MG tablet Take 40 mg by mouth daily. 0 Active temazepam (RESTORIL) 15 MG capsule Take 30 mg by mouth every night at bedtime. 0 Active QUEtiapine (SEROquel) 200 MG tablet Take 200 mg by mouth every night at bedtime. 0 Active carBAMazepine (TEGretol) 200 MG tablet Take 200 mg by mouth 3 (three) times a day. 0 Active B Complex Vitamins (VITAMIN-B COMPLEX PO) Take by mouth. 0 Active Multiple Vitamins-Minerals (MULTIVITAMIN ADULT PO) Take by mouth. 0 Active [place] 3 1000 MG CAPS Take by mouth. 0 Active atorvastatin (LIPITOR) tablet 80 mg Take 1 tablet (80 mg total) by mouth every evening. 30 tablet 0 12/10/2018 Active metoprolol tartrate (LOPRESSOR) 25 MG tablet Take 1 tablet (25 mg total) by mouth 2 (two) times a day. 60 tablet 0 12/10/2018 Active Active Problems Problem Noted Date Diagnosed Date Acute respiratory failure with hypoxia 9 Acute diastolic (congestive) heart failure 12/03 NSTEMI (non-ST elevated myocardial infarction) 0 11/28/2018 Bipolar 1 disorder 11/28/2018 HTN (hypertension) 11/28/2018 HLD (hyperlipidemia) 11/28/2018 GERD (gastroesophageal reflux disease) 9 Family History Medical History Relation Name Comments Heart attack Brother Heart attack Father Coronary artery disease Sister 1 PCI and stents Coronary artery disease Sister 2 PCI and stents Relation Name Status Comments Brother Father Sister 1 Sister 2 Social History Tobacco Use Types Packs/Day Years Used Date Smoking Tobacco: Former Cigarettes 1 25 Q uit: 11/30/2018 Smokeless Tobacco: Current Alcohol Use Standard Drinks/Week Comments No 0 (1 standard drink = 0.6 oz pur e alcohol) Sex and Gender Information Value Date Recorded Sex Assigned at Female 11/28/2018 12:36 AM EST Gender Identity Female 11/28/2018 12:36 AM EST Sexual Orientation Not on file Last Filed Vital Signs Vital Sign Reading Time Taken Comments Blood Pressure 163/93 08/27/2019 11:07 AM EDT Pulse 56 08/27/2019 11:07 AM EDT Temperature 36.7 ??C (98.1 ??F) 12/11/2018 1 2:22 PM EST Respiratory Rate 18 12/21/2018 1:40 PM EST Oxygen Saturation 95% 12/21/2018 1:40 PM EST Inhaled Oxygen Concentration - - Weight 105.8 kg (233 lb 3.2 oz) 019 11:07 AM EDT Height 152.4 cm (5') 08/27/2019 11:07 AM EDT Body Mass Index 45.54 08/27/2019 11:07 AM EDT Plan of Treatment Health Maintenance Due Date Last Done Comments Hepatitis C Screening 1955 COVID-19 Vaccine (#1) 06/22/1956 Pneumococcal Vaccine (1 of 2 - PCV) 1961 Depression Screening 1967 BMI Counseling 1973 Preventative Health Evaluation 1973 DTap / Tdap / Td (1 - Tdap) 1974 Colon Cancer Screening (Colonoscopy) 2000 Breast Cancer Screening (Mammogram) 2005 Shingrix-Zoster Vaccine (1 of 2) 2005 Fall Risk Assessment 2020 Osteoporosis Screening (DEXA Scan) 2020 Influenza Vaccine (#1) 2024 RSV Adult > 60+ Yrs or Pregn ant (1 - 1-dose 75+ series) 2030 Hepatitis B Vaccines Aged Out No long er eligible based on patient's age to complete this topic RSV Ped < 20 months Aged Out No longe r eligible based on patient's age to complete this topic Medical Devices Implanted Type Area Quality Lead Device Identifier Shelf Expiration Date Model / Serial / Lot Device Angio-Seal Vip .035in 70cm 6fr [employer] Guidewire - [id number] - [id number] Implanted:11/[address] [facility] and [facility] (Quantity not on file) [employer] [id number] / / Advance Directives For more information, please contact: [phone] Latest Code Status on File Code Status Date Activated Date Inactivated Comments Full Code 11/29/2018 8:33 PM 12/11/2018 9:40 PM This code status was ascertained in the following way: discussion with patient. Code Status History Code Status Date Activated Date Inactivated Comments Full Code 11/28/2018 1:27 PM 11/29/2018 8:33 PM This code status was ascertained in the following way: discussion with patient . Full Code 11/28/2018 12:44 AM 11/28/2018 1:27 PM This code status was ascertained in the following way: discussion with patient . Care Teams Dressing Room Attendant Relationship Specialty Start Date End Date Andrade Robles MD PCP - General Cardiology 11/27/18
--- OUTSIDE RECORDS SUMMARY | 2025-01-03 12:54 | XMS_ITS ---
Author Organization [facility] Address [address] [place] [address] Care Team Providers Care Black Leather Buffer Name Role Phone Juan M WADDELL, Molly Jensen Primary Care Provider Un available Black, Carli Unavailable [phone] REASON FOR VISIT Secondary Ins Encounters Encounter Location Date [facility] [address] [address] 01/26/2024 Carli Black Plan Of Treatment No Information Progress Notes * Deidre TODOB: (68 yo F)Acc No.[id number]:01/26/2024 Patient:?Yousuf Deidre :1955???Age:68 Y???Sex:Female Address:[address] [place] [address], [place] [address] * true * Date:? Generated for Steve hernandez/Yasmeen/eTransmitting on:?01/03/2025 12:54 PM EST
--- OUTSIDE RECORDS SUMMARY | 2025-01-03 12:54 | XMS_ITS | Patient Health Record ---
Author Organization [facility] Urgent Care - So [facility] Address [address] [place] [address] Support Name Relationship Address Phone Deidre To Guarantor Unknown [phone] Reason For Referral No Information Plan Of Treatment No Information Insurance Providers Payer Name Payer Address Payer Phone Subscriber Number Group Number Insured Name Patient Relationship to Insured Coverage Start Date Coverage End Date Medicare [address] [address] [place] [address] [id number] Deidre To Self - patient is the insured Pre Op Covid Testing not for submission KHRIS cotto [id number] preop Deidre oT Self - patient is the insured
[2025-01-03 13:33] LABS: Magnesium 1.5 mg/dL (1.6-2.6)
== END 2025-01-03 11:33 | disposition home or self-care (01) ==
LOC: HO.HMGCLDS 11:32
PROVIDERS: PCP Internal Medicine; Visit Provider Internal Medicine
DX: E83.42 Hypomagnesemia (principal)
CPT/HCPCS: 36415; 83735

== ENCOUNTER 2025-01-08 13:15 | Outpatient (AMB) | payer MEDICARE, SELFPAY ==
--- NOTE | 2025-01-08 13:47 | MHC.OFFVIS ---
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 Required: No Accompanied by: Self / Same As Patient Allergies No Known Allergies Allergy (Verified 12/17/24 11:33) Medication List - Last Reconciled 01/08/25 by Vijay Han MD acetaminophen 650 mg PO Q8H PRN albuterol sulfate 2.5 mg inhalation Q6H PRN ammonium lactate 12% 1 appl topical BID PRN aspirin 81 mg PO DAILY atorvastatin 80 mg PO DAILY carbamazepine 200 mg PO TID cholecalciferol (vitamin D3) 50 mcg PO DAILY citalopram 40 mg PO DAILY famotidine 40 mg PO DAILY lactobacillus combination no.4 (Probiotic) 3,000 mmu cells PO DAILY@0800 magnesium glycinate 300 mg PO DAILY magnesium glycinate 300 mg PO BEDTIME metoprolol tartrate 50 mg See Protocol PO BID midodrine 5 mg PO TID PRN multivitamin 1 tab PO DAILY nystatin 1 appl topical DAILY PRN ondansetron 8 mg translingual Q8H PRN polyethylene glycol 3350 (Miralax) 238 grams PO ONCE quetiapine 100 mg PO BEDTIME rivaroxaban (Xarelto) 20 mg PO DAILY@1700 temazepam 15 mg PO BEDTIME HPI Comments Details: Deidre returns for follow-up. In february 2024, she was admitted for small-bowel obstruction. In that setting, diagnosed atrial fibrillation. Per patient, not previously known. Otherwise, history of coronary artery bypass [place] in [facility] from [place]. Last few years, she has been in [place]. Now moved locally. Overall, she states she is doing okay from cardiac and does not have any symptoms like angina. [facility] Medical History Partial small bowel obstruction C. difficile colitis Tremor Diplopia History of small bowel obstruction Hx of colon cancer, stage III Bipolar 1 disorder CAD (coronary artery disease) Persistent atrial fibrillation Essential hypertension Hyperlipidemia Personal history of nicotine dependence Unsteady gait Thrombocytopenia Anemia Cervical radiculopathy due to degenerative joint disease of spine History of radius fracture Degenerative disc disease, cervical Acquired deafness of left ear Surgical History Status post coronary artery bypass graft History of coronary artery bypass graft x 2 (~2018) History of cardiac catheterization History of partial colectomy (~2015) History of reversal of ileostomy History of resection of small bowel (~2020) History of laparoscopic adjustable gastric banding (~2004) History of laparoscopic cholecystectomy (~2003) History of parotidectomy (~2014) History of cervical discectomy (~2013) History of surgery on right wrist History of colonoscopy History of esophagogastroduodenoscopy (EGD) History of appendectomy (~2003) History of tonsillectomy History of bunionectomy Family History Sister Substance use disorder Insulin dependent type 1 diabetes mellitus Mother Colon cancer Breast cancer Coronary artery disease High cholesterol Essential hypertension Father Heart disease Brother Heart disease Social History Household Members: None Housing: Apartment Do you presently have visiting nurse or other home services: No Unable to assess alcohol history related to: Unable to respond Alcohol intake: never Patient Tobacco Use Status: Former Tobacco user Tobacco use type: Cigarette Years Smoked: (former smoker - onset 30yo, 1ppd x 33yrs, 30pyh, quit 11/2018) e-Cigarette/Vaping Use: Never Used Second Hand Smoke Exposure: No Advance Directives Date on File: 03/02/24 service: No Current occupational status: retired Cognitive needs: No Hearing needs: No Vision needs: Yes Review of Systems Const Denies chills, Denies fatigue, Denies fever(s), Denies frequent falls, Denies weakness, Denies weight gain and Denies weight loss ENT Denies dizziness Card Denies chest pain, Denies leg edema, Denies lightheadedness, Denies palpitations, Denies dyspnea and Denies dyspnea on exertion Resp Denies cough, Denies dyspnea and Denies dyspnea on exertion GI Denies hematochezia Musc Denies abnormal gait, Denies muscle weakness, Denies numbness, Denies radiating pain into limb and Denies tingling Neuro Denies abnormal gait, Denies dizziness, Denies frequent falls, Denies numbness, Denies tingling and Denies weakness Endo Denies fatigue and Denies palpitations Physical Exam Vital Signs: Last Vital Signs Pulse 70 01/08/25 13:50 BP 130/62 01/08/25 13:50 BMI result Body Mass Index 36.0 Const General: comfortable and no acute distress Orientation/consciousness: patient oriented x3 HEENT Other: Unremarkable Head: Yes normal to inspection Neck Neck: Yes normal visual inspection Chest Chest palpation & inspection: normal inspection of the chest Resp Auscultation: clear to auscultation bilaterally Cardio Palpation: normal PMI Heart sounds: S1 normal heart sound present, S2 normal heart sound present, no gallops, Murmur heart sound present systolic II/ and at the right sternal border and no rubs GI Palpation (GI): Soft to palpation Back/Spine/Pelvis Other: unremarkable Skin General skin exam: no rashes or lesions noted Neuro General: patient oriented x3 Extrem General: Yes normal to inspection Psych Mental Status: mental status grossly normal Assessment & Plan Assessment & Plan (1) Persistent atrial fibrillation: Code(s): I48.19 - Other persistent atrial fibrillation Category: Medical Plan: In the Holter, underlying atrial fibrillation with an average rate of 77/Min. On the echocardiogram, left atrium described to be severely dilated. May indicate chronicity. Continue beta-blockers and Xarelto. (2) Status post coronary artery bypass graft: Code(s): Z95.1 - Presence of aortocoronary bypass graft Category: Surgical Plan: History of CABG in 2019. Myocardial perfusion imaging study from 05/2024 shows likely normal perfusion. LDL is well controlled at 43mg/dL. (3) Nonrheumatic aortic (valve) stenosis: Code(s): I35.0 - Nonrheumatic aortic (valve) stenosis Category: Medical Plan: Echocardiogram with moderate aortic valve calcification with mild stenosis/regurgitation. Will continue to monitor. (4) Mitral annular calcification: Code(s): I34.81 - Nonrheumatic mitral (valve) annulus calcification Category: Medical Plan: Severe mitral annular calcification but no significant valvular dysfunction. Increased risk of developing calcific mitral stenosis in the future. (5) Bilateral carotid artery stenosis: Code(s): I65.23 - Occlusion and stenosis of bilateral carotid arteries Category: Medical Plan: Head and neck CTA from 08/2024- 50% stenosis of the right internal carotid artery; < 50% stenosis of the left internal carotid artery. Continue statins. Medications: Changed From magnesium glycinate 200 mg (2 x 100 mg magnesium) PO DAILY 60 caps 0RF E83.42 - Hypomagnesemia, K52.9 - Noninfective gastroenteritis and colitis, unspecified To magnesium glycinate 300 mg PO DAILY E83.42 - Hypomagnesemia, K52.9 - Noninfective gastroenteritis and colitis, unspecified Gaby Harden MD Refilled metoprolol tartrate 50 mg See Protocol PO BID 180 tabs 3RF Vijay Han MD Coding Level of Care Code Est Pt Level 4 (85555) Complex EM visit Add On G2211 Diagnoses Persistent atrial fibrillation I48.19 Status post coronary artery bypass graft Z95.1 Nonrheumatic aortic (valve) stenosis I35.0 Mitral annular calcification I34.81 Bilateral carotid artery stenosis I65.23
[2025-01-08 13:50] VITALS: BP 130/62; PULSE 70; BMI 36.0
--- OUTSIDE RECORDS SUMMARY | 2025-01-08 16:15 | XMS_ITS | Patient Health Record ---
Author Organization [facility] - [facility] Address [address] [place] [address] Support Name Relationship Address Phone Deidre To Guarantor Unknown [phone] Reason For Referral No Information Plan Of Treatment No Information Insurance Providers Payer Name Payer Address Payer Phone Subscriber Number Group Number Insured Name Patient Relationship to Insured Coverage Start Date Coverage End Date Medicare [address] [address] [place] [address] [id number] Deidre To Self - patient is the insured Pre Op Covid Testing not for submission KHRIS cotto [id number] preop Deidre To Self - patient is the insured
--- OUTSIDE RECORDS SUMMARY | 2025-01-08 16:15 | XMS_ITS | Patient Health Record ---
Author Organization [facility] [place] Address [address] [place] [address] Care Team Providers Care Custom Feed Mill Operator Name Role Phone Juan M WADDELL, Molly Jensen Primary Care Provider Un available Black, Carli Unavailable [phone] Allergies No Known Allergies Reason For Referral No Information Medications Medication SIG (Take, Route, Frequency, Duration) Notes Start Date End Date Status [place] 3 1000 MG 1 capsule Orally Thr [...] Problem Acquired hammer toe of right foot (966481595985 9105) Other hammer toe(s) (acquired), right foot (M20.41) Active confirmed Problem Acquired hammer toe of left foot (852753372769 9103) Other hammer toe(s) (acquired), left foot (M20.42) Active confirmed Problem 216304698 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 confirmed Problem Atherosclerosis of [place] artery of both lower extremities, with unspecified presence of clinical manifestation (I70.203) Active confirmed Vital Signs Height 5 ft 1 in in 01/26/2024 Weight 199 lbs 01/26/2024 BMI 37.6 kg/m2 01/26/2024 Procedures Procedure Date Ordered Date Performed Result Body Sit e 35913-UOXZ SKIN LESIONS, 2 TO 4 01/26/2024 N/A [id number]-[id number] DYSTROPHIC NAILS ANY # 01/26/2024 N/A Encounters Encounter Location Date Provider Diagnosis [facility] [address] [address] 01/26/2024 Carli Jenkins Pain in right toe(s) M79.674 ; Pain in left toe(s) M79.675 ; Xerosis of skin L85.3 ; Drug-induced polyneuropathy G62.0 ; Adverse effect of antineoplastic and immunosuppressive drugs, initial encounter T45.1X5A ; Other hammer toe(s) (acquired), right foot M20.41 and Other hammer toe(s) (acquired), left foot M20.42 [facility] [address] [address] 01/26/2024 [facility] [address] 05/10/2024 Carli Jenkins Assessments Encounter Date Diagnosis [...] Treatment Pending Test Test Name Order Date 35688-IIHA SKIN LESIONS, 2 TO 4 01/26/20 [id number]-[id number] DYSTROPHIC NAILS ANY # Insurance Providers Payer Name Payer Address Payer Phone Subscriber Number Group Number Insured Name Patient Relationship to Insured Coverage Start Date Coverage End Date Medicare [facility] [address] [place] [address] [id number] Deidre To Self - patient is the insured A[employer] Secondary to Medicare [address] [place] [address] [id number] Deidre To Self - patient is the [...]
--- OUTSIDE RECORDS SUMMARY | 2025-01-08 16:15 | XMS_ITS | Clinical Summary ---
Author Organization [facility] Address [address] [place] [address] Care Team Providers Care Educational Technology Specialist Name Role Phone Andrade Robles MD Primary Care Provider [phone] Allergies No known active allergies Medications Medication [...] ADULT PO) Take by mouth. 0 Active [place] 3 1000 MG CAPS Take by mouth. [...] this topic Medical Devices Implanted Type Area Project Management It Specialist Device Identifier Shelf Expiration Date Model / Serial / Lot Device Angio-Seal Vip .035in 70cm 6fr [employer] - [id number] - [id number] Implanted:11/28 at [facility] (Quantity not on file) [employer] [id number] / / Advance Directives For more information, please contact: [phone] Latest Code Status on File Code Status [...] way: discussion with patient . Care Teams Educational Technology Specialist Relationship Specialty Start Date End Date Andrade Robles MD PCP - General Cardiology 11/27/18
--- OUTSIDE RECORDS SUMMARY | 2025-01-08 16:15 | XMS_ITS ---
Author Organization [facility] Address [address] [place] [address] Care Team Providers Care Supervisor Accounting Clerks Name Role Phone Juan M WADDELL, Molly Jensen Primary Care Provider Un available Black, Carli Unavailable [phone] REASON FOR VISIT No Show Encounters Encounter Location Date Provider Diagnosis [facility] [address] [place] [address] 05/10/2024 Carli Black Plan Of Treatment No Information Progress Notes * Deidre TODOB: (68 yo F)Acc No.[id number]:05/10/2024 Patient:?YousufErinDeidre :1955???Age:68 Y???Sex:Female Address:[address] [place] [address] [place] [address] * true * Date:? Generated for Radhai david/Yasmeen/eTransmitting on:?01/08/2025 04:14 PM EST
--- OUTSIDE RECORDS SUMMARY | 2025-01-08 16:15 | XMS_ITS ---
Author Organization [facility] Address [address] [facility] [place] [address] Care Team Providers Care Service Station Console Operator Name Role Phone Juan M WADDELL, Molly Jensen Primary Care Provider Un available Black, Carli Unavailable [phone] REASON FOR VISIT Secondary Ins Encounters Encounter Location Date [facility] [address] [address] 01/26/2024 Carli Black Plan Of Treatment No Information Progress Notes * Deidre TODOB: (68 yo F)Acc No.[id number]:01/26/2024 Patient:?Yousuf Deidre :1955???Age:68 Y???Sex:Female Address:[address] [place] [address], [place] [address] * true * Date:? Generated for Steve hernandez/Yasmeen/eTransmitting on:?01/08/2025 04:14 PM EST
--- OUTSIDE RECORDS SUMMARY | 2025-01-08 16:15 | XMS_ITS | Clinical Summary ---
Author Organization [facility] Address [address] [place] [address] Care Team Providers Care Information Systems Security Officer Name Role Phone Andrade Robles MD Primary Care Provider [phone] Surgical History Surgery Date Site/Laterality Comments COLECTOMY PROCEDURE:COLECTOMY SALIVARY GLAND SURGERY PROCEDURE:SALIVARY GLAND SURGERY CERVICAL SPINE SURGERY PROCEDURE:CERVICAL SPINE SURGERY ORIF WRIST FRACTURE Left PROCEDURE:ORIF WRIST FRACTURE CORONARY ARTERY BYPASS GRAFT 11/30/2018 N/A PROCEDURE:CORONARY ARTERY BYPASS GRAFT;COMMENT:Procedure: CORONARY ARTERY BYPASS GRAFTING - ON PUMP; Surgeon: Humberto Fontana MD; Location: [facility] CARDIAC OPERATING ROOM; Service: Cardiovascular; Laterality: N/A; OTHER SURGICAL HISTORY 11/30/2018 N/A PROCEDURE:TRANSESOPHAGEAL ECHOCARDIOGRAM (GRETEL) (CONTRAST/3D PRN);COMMENT:Procedure: TRANSESOPHAGEAL ECHOCARDIOGRAPHY; Surgeon: Humberto Fontana MD; Location: [facility] CARDIAC OPERATING ROOM; Service: Cardiovascular; Laterality: N/A; CARDIAC CATHETERIZATION 11/28/2018 Right PROCEDURE:CARDIAC CATHETERIZATION;COMMENT:Proced ure: LEFT HEART CATHETERIZATION; Surgeon: Saman Ibarra MD; Location: [facility] CARDIAC POLYSTYRENE BEAD MOLDER; Service: Cardiology; Laterality: Right; Medical History Medical [...] this topic Medical Devices Implanted Type Area Lan Support Specialist Device Identifier Shelf Expiration Date Model / Serial / Lot Device Angio-Seal Vip .035in 70cm 6fr [employer] Guide[employer] - [id number] Implanted:11/28 (Quantity not on file) [facility] [id number] / / Care Teams Information Systems Security Officer Relationship Specialty Start Date End Date Andrade Robles MD [address] [place] [phone] PCP - General Cardiology 11/27/18
--- OUTSIDE RECORDS SUMMARY | 2025-01-08 16:15 | XMS_ITS ---
Author Organization [facility] Address [address] [place] [address] Care Team Providers Care Casualty Claims Supervisor Name Role Phone Juan M WADDELL, Molly Jensen Primary Care Provider Un available Calri [facility] [phone] Encounters Encounter Location Date Provider Diagnosis [address] [address] 05/10/2024 Carli Jenkins Plan Of Treatment No Information Progress Notes * Deidre TODOB: (69 yo F)Acc No.[id number]:05/10/2024 Progress Note Patient:Deidre SMILEY Provider:?Carli Jenkins DPM :1955???Age:68 Y???Sex:Female D ate:05/10/2024 Address:[address] [place] [id number] Pcp:Sumanth Orozco Subjective: * Chief Complaints: * ??? * Medical History:? Objective: * Vitals:? Assessment: Plan: * Treatment: * Images: * The named appointment provid er may or may not be the originator of this progress note, and it is not deemed complete until electronically signed by the appointment provider. Sign off status: Pending * Provider:?Carli Jenkins DPM Date:?2023 Generated for Steve hernandez/Yasmeen/eTransmitting on:?01/08/2025 04:14 PM EST
== END 2025-01-08 14:14 | disposition home or self-care (01) ==
PROVIDERS: PCP Internal Medicine; Visit Provider Internal Medicine
DX: I48.19 Other persistent atrial fibrillation (principal); Z95.1 Presence of aortocoronary bypass graft; I35.0 Nonrheumatic aortic (valve) stenosis; I34.81 Nonrheumatic mitral (valve) annulus calcification; I65.23 Occlusion and stenosis of bilateral carotid arteries
CPT/HCPCS: 99214; G2211

== ENCOUNTER → 2025-01-08 13:15 | Outpatient (BNVA) | payer MEDICARE, SELFPAY | PROVIDERS: PCP Internal Medicine; Visit Provider Internal Medicine | DX: I48.19 Other persistent atrial fibrillation (principal); I35.0 Nonrheumatic aortic (valve) stenosis; I34.81 Nonrheumatic mitral (valve) annulus calcification; I65.23 Occlusion and stenosis of bilateral carotid arteries; Z95.1 Presence of aortocoronary bypass graft | CPT/HCPCS: 99212 ==

== ENCOUNTER 2025-01-29 10:29 | Outpatient (REF) | payer MEDICARE, SELFPAY ==
[2025-01-29 13:41] LABS: Magnesium 1.3 mg/dL (1.6-2.6)
== END 2025-01-29 10:30 | disposition home or self-care (01) ==
LOC: HO.HMGCLDS 10:29
PROVIDERS: PCP Internal Medicine; Visit Provider Nurse Practitioner
DX: E83.42 Hypomagnesemia (principal)
CPT/HCPCS: 36415; 83735

== ENCOUNTER 2025-02-04 08:44 | Outpatient (REF) | payer MEDICARE, SELFPAY ==
[2025-02-04 10:58] LABS: Anion Gap 11 (12-20); Blood Urea Nitrogen 11 mg/dL (9-16); Calcium 8.6 mg/dL (8.4-10.2); Carbon Dioxide 22 mmol/L (22-29); Chloride 108 mmol/L (96-108); Estimated Glomerular Filt Rate > 60; Glucose Random 87 mg/dL (60-115); Magnesium 1.3 mg/dL (1.6-2.6); Potassium 3.6 mmol/L (3.3-5.1); Sodium 137 mmol/L (135-145)
== END 2025-02-04 08:45 | disposition home or self-care (01) ==
LOC: HO.LAB 08:44
PROVIDERS: PCP Internal Medicine; Visit Provider Internal Medicine
DX: K52.9 Noninfective gastroenteritis and colitis, unspecified (principal)
CPT/HCPCS: 36415; 80048; 83735

== ENCOUNTER 2025-02-05 08:38 | Day surgery (SDC) | payer MEDICARE, SELFPAY ==
[2025-02-01 13:30] VITALS: BMI 35.9
--- NOTE | 2025-02-01 13:46 | HO.ANESPROP2 ---
Documented by User: Sangeeta Ruiz NP 02/04/25 12:42 HPI - Anesthesia Eval Consult details Narrative: 69yo F for Upper Endoscopy and Colonoscopy Mg low. Pt to receive Mg preop per GI office Cardiac optimized per workload. Last office visit 12/2024 Follows [facility] [place] Cardiology for: Persistent atrial fibrillation (xarelto) Status post coronary artery bypass graft 2019 Nonrheumatic aortic (valve) stenosis (FLETCHER Cont 1.85) Mitral annular calcification Bilateral carotid artery stenosis PMFSH Active Problems Active Problems: All Active Problems Chronic diarrhea (Acute) Varices, esophageal (Acute) Irritable bowel syndrome with diarrhea (Acute) Bipolar 1 disorder (Acute) Hyponatremia (Acute) Cirrhosis of liver (Acute) Obesity (BMI 35.0-39.9 without comorbidity) (Chronic) Traumatic ecchymosis of right hand (Acute) Bilateral carotid artery stenosis (Acute) History of small bowel obstruction (Acute) CAD (coronary artery disease) (Chronic) Persistent atrial fibrillation (Chronic) Nonrheumatic aortic (valve) stenosis (Chronic) Mitral annular calcification (Acute) Essential hypertension (Acute) Hyperlipidemia (Acute) Personal history of nicotine dependence (Acute) GERD (gastroesophageal reflux disease) (Acute) Thrombocytopenia (Acute) Anemia (Acute) Cervical myelopathy (Acute) Cervical radiculopathy due to degenerative joint disease of spine (Acute) Degenerative disc disease, cervical (Acute) Past Medical History Medical History Partial small bowel obstruction C. difficile colitis Tremor Diplopia History of small bowel obstruction Hx of colon cancer, stage III Bipolar 1 disorder CAD (coronary artery disease) Persistent atrial fibrillation Essential hypertension Hyperlipidemia Personal history of nicotine dependence Unsteady gait Thrombocytopenia Anemia Cervical radiculopathy due to degenerative joint disease of spine History of radius fracture Degenerative disc disease, cervical Acquired deafness of left ear Family History Family History Sister Substance use disorder Insulin dependent type 1 diabetes mellitus Mother Colon cancer Breast cancer Coronary artery disease High cholesterol Essential hypertension Father Heart disease Brother Heart disease Surgical History Surgical History Status post coronary artery bypass graft History of coronary artery bypass graft x 2 (~2018) History of cardiac catheterization History of partial colectomy (~2016) History of reversal of ileostomy History of resection of small bowel (~2020) History of laparoscopic adjustable gastric banding (~2004) History of laparoscopic cholecystectomy (~2003) History of parotidectomy (~2014) History of cervical discectomy (~2013) History of surgery on right wrist History of colonoscopy History of esophagogastroduodenoscopy (EGD) History of appendectomy (~2003) History of tonsillectomy History of bunionectomy Social History Social History Household Members: None Housing: Apartment Are you a primary pulmonary care nurse to a significant other at home: No Do you presently have visiting nurse or other home services: No Unable to assess alcohol history related to: Unable to respond Alcohol intake: never Patient Tobacco Use Status: Former Tobacco user Tobacco use type: Cigarette Years Smoked: (former smoker - onset 30yo, 1ppd x 33yrs, 30pyh, quit 11/2018) e-Cigarette/Vaping Use: Never Used Second Hand Smoke Exposure: No Use of substances other than those prescribed or required for medical reasons: No Have you been hit, kicked, punched, or otherwise hurt by someone within the past year? If so, by whom?: No Are you DNR?: Yes Advance Directives: No Advance Directives Information Provided: Yes Advance Directives Date on File: 03/02/24 Recently lost weight without trying: No Nutrition Risks: No Nutritional Risk service: No Current occupational status: retired Cognitive needs: No Hearing needs: No Vision needs: Yes Meds Allergies Allergy/AdvReac Type Severity Reaction Status Date / Time No Known Allergies Allergy Verified 02/05/25 09:52 Home Medications ?Medication ?Instructions ?Recorded ?Confirmed ?Last Taken ?Type acetaminophen 325 mg tablet 650 mg PO Q8H PRN ARTHRITIS PAIN 01/09/24 02/01/25 05/15/24 History citalopram 40 mg tablet 40 mg PO DAILY 01/09/24 02/05/25 02/05/25 History ammonium lactate 12 % topical cream 1 appl topical BID PRN Rash 02/06/24 02/01/25 05/15/24 History multivitamin 1 tab PO DAILY 02/28/24 02/01/25 11/12/24 History lactobacillus combination no.4 3 3,000 mmu cells PO DAILY@0800 04/10/24 02/01/25 11/12/24 History billion cell capsule (Probiotic) temazepam 15 mg capsule 15 mg PO BEDTIME 05/16/24 02/01/25 11/11/24 History albuterol sulfate 2.5 mg/3 mL 2.5 mg inhalation Q6H PRN dyspnea 10/03/24 02/01/25 Unknown History (0.083 %) solution for nebulization midodrine 5 mg tablet 5 mg PO TID PRN Low BP 10/03/24 02/01/25 Unknown History carbamazepine 200 mg tablet 200 mg PO TID 11/12/24 02/05/25 02/05/25 History magnesium glycinate 300 mg PO BEDTIME 01/08/25 02/01/25 Unknown History Exam Height,Weight and Vital Signs: Height 5 ft Weight 83.461 kg Pertinent Lab Results Pertinent Lab Results: Laboratory Tests 11/27/24 12/06/24 10:34 10:15 WBC 4.4 L Hgb 12.6 Hct 38.2 Plt Count 186 D Sodium 135 Potassium 4.6 Chloride 105 Carbon Dioxide 23 BUN 12 Creatinine 0.75 Narrative Narrative: EKG 11/2024 afib @ 79 Inc RBBB LAFB Holter 2023 Total monitoring time 3 days. Underlying rhythm is atrial fibrillation with an average rate of 75/Min. Rare ventricular ectopy. Very brief runs, longest 3 beats. No significant pauses or high-grade AV blocks. No patient markers or diary events ECHO 2023 Conclusions: - The left ventricular systolic function is hyperdynamic. The visually estimated ejection fraction is >70%. - There is moderately increased left ventricular wall thickness. - The left atrium is severely dilated. - There is moderate calcification of the aortic valve. There is mild aortic valve stenosis. There is mild aortic valve regurgitation. - There is severe mitral annular calcification. - Mild pulmonary hypertension is present. NM cardiolite stress test 2023 Impression: 1. Myocardial perfusion imaging study shows likely normal myocardial perfusion 2. Gated LVEF is 54% 3. Transient ischemic dilatation not present EKG is nondiagnostic for ischemia CT angio head neck stroke 2023 IMPRESSION: CTA head demonstrates no large vessel occlusion, saccular aneurysm, or dissection. CTA neck demonstrates 55% focal stenosis of the right cervical ICA and less than 50% focal stenosis of the left cervical ICA. There is also mild short segment stenosis of the distal left common carotid artery. Assessment and Plan Assessment Anesthesia Assessment: Chart Reviewed Documented by User: Shan Bill MD 02/05/25 11:00 [facility] Past Medical History Medical History Partial small bowel obstruction C. difficile colitis Tremor Diplopia History of small bowel obstruction Hx of colon cancer, stage III Bipolar 1 disorder CAD (coronary artery disease) Persistent atrial fibrillation Essential hypertension Hyperlipidemia Personal history of nicotine dependence Unsteady gait Thrombocytopenia Anemia Cervical radiculopathy due to degenerative joint disease of spine History of radius fracture Degenerative disc disease, cervical Acquired deafness of left ear Family History Family History Sister Substance use disorder Insulin dependent type 1 diabetes mellitus Mother Colon cancer Breast cancer Coronary artery disease High cholesterol Essential hypertension Father Heart disease Brother Heart disease Family history of problems with anesthesia: No Surgical History Surgical History Status post coronary artery bypass graft History of coronary artery bypass graft x 2 (~2018) History of cardiac catheterization History of partial colectomy (~2015) History of reversal of ileostomy History of resection of small bowel (~2020) History of laparoscopic adjustable gastric banding (~2004) History of laparoscopic cholecystectomy (~2003) History of parotidectomy (~2014) History of cervical discectomy (~2013) History of surgery on right wrist History of colonoscopy History of esophagogastroduodenoscopy (EGD) History of appendectomy (~2003) History of tonsillectomy History of bunionectomy History of Problems with Anesthesia: No Social History Social History Household Members: None Housing: Apartment Are you a primary pulmonary care nurse to a significant other at home: No Do you presently have visiting nurse or other home services: No Unable to assess alcohol history related to: Unable to respond Alcohol intake: never Patient Tobacco Use Status: Former Tobacco user Tobacco use type: Cigarette Years Smoked: (former smoker - onset 30yo, 1ppd x 33yrs, 30pyh, quit 11/2018) e-Cigarette/Vaping Use: Never Used Second Hand Smoke Exposure: No Use of substances other than those prescribed or required for medical reasons: No Have you been hit, kicked, punched, or otherwise hurt by someone within the past year? If so, by whom?: No Are you DNR?: Yes Advance Directives: No Advance Directives Information Provided: Yes Advance Directives Date on File: 03/02/24 Recently lost weight without trying: No Nutrition Risks: No Nutritional Risk service: No Current occupational status: retired Cognitive needs: No Hearing needs: No Vision needs: Yes Meds Allergies Allergy/AdvReac Type Severity Reaction Status Date / Time No Known Allergies Allergy Verified 02/05/25 09:52 Home Medications ?Medication ?Instructions ?Recorded ?Confirmed ?Last Taken ?Type acetaminophen 325 mg tablet 650 mg PO Q8H PRN ARTHRITIS PAIN 01/09/24 02/01/25 05/15/24 History citalopram 40 mg tablet 40 mg PO DAILY 01/09/24 02/05/25 02/05/25 History ammonium lactate 12 % topical cream 1 appl topical BID PRN Rash 02/06/24 02/01/25 05/15/24 History multivitamin 1 tab PO DAILY 02/28/24 02/01/25 11/12/24 History lactobacillus combination no.4 3 3,000 mmu cells PO DAILY@0800 04/10/24 02/01/25 11/12/24 History billion cell capsule (Probiotic) temazepam 15 mg capsule 15 mg PO BEDTIME 05/16/24 02/01/25 11/11/24 History albuterol sulfate 2.5 mg/3 mL 2.5 mg inhalation Q6H PRN dyspnea 10/03/24 02/01/25 Unknown History (0.083 %) solution for nebulization midodrine 5 mg tablet 5 mg PO TID PRN Low BP 10/03/24 02/01/25 Unknown History carbamazepine 200 mg tablet 200 mg PO TID 12/30/24 03/25/25 03/25/25 History magnesium glycinate 300 mg PO BEDTIME 01/08/25 02/01/25 Unknown History Exam Airway Mallampati Class: II TM Dist: >3cm Neck ROM: Full Denture: Upper and Lower Heart: ok. see above. Lungs: ok. Other: walks w a walker Assessment and Plan Assessment Anesthesia Assessment: Anesthesia Plan Discussed Final Anesthetic Review Family History of Problems with Anesthesia: No History of Problems with Anesthesia: No NPO: Yes ASA Class: IV Final Preanesthetic Review: No Changes in Pt Med Stat, Meds/Allgs Chart Reviewed, Consent Obtained/Reviewed and Anes Risks/Benef Reviewed Patient Risk: High Procedure Risk: Intermediate Anesthetic Plan Anesthetic Plan: Agree w/ Assess. and Plan and TIVA Disposition: Standard PACU
[2025-02-05 09:45] VITALS: BP 118/71; PULSE 99; RESP 14; TEMP 36.6; O2SAT 96; BMI 33.1
[2025-02-05] MEDS: Lactated Ringers 1,000 ML 100 ML IVCONT (09:51)
--- NOTE | 2025-02-05 09:59 | MHC.SHP ---
Pre-Procedural Eval Section A - 24 Hr Update-Section A only Date of Service: 02/05/25 Section B - Complete if H&P > 30 days Chief Complaint: Slipped band, change in bowel habits Details of Present Illness: Partial small bowel obstruction C. difficile colitis Tremor Diplopia History of small bowel obstruction Hx of colon cancer, stage III Bipolar 1 disorder CAD (coronary artery disease) Persistent atrial fibrillation Essential hypertension Hyperlipidemia Personal history of nicotine dependence Unsteady gait Thrombocytopenia Anemia Cervical radiculopathy due to degenerative joint disease of spine History of radius fracture Degenerative disc disease, cervical Acquired deafness of left ear Surgical History Status post coronary artery bypass graft History of coronary artery bypass graft x 2 (~2018) History of cardiac catheterization History of partial colectomy (~2015) History of reversal of ileostomy History of resection of small bowel (~2020) History of laparoscopic adjustable gastric banding (~2004) History of laparoscopic cholecystectomy (~2003) History of parotidectomy (~2014) History of cervical discectomy (~2013) History of surgery on right wrist History of colonoscopy History of esophagogastroduodenoscopy (EGD) History of appendectomy (~2003) History of tonsillectomy History of bunionectomy Present Medications: see Short Stay Collaborative assessment Allergies: Allergies Allergy/AdvReac Type Severity Reaction Status Date / Time No Known Allergies Allergy Verified 02/05/25 09:52 Review of Systems Review of Systems Comment: Ten point ROS negative Exam Exam Comment: Gen appear: No acute distress HEENT: no icterus Chest: No overt resp distress Abd: soft, nontender, nondistended Psych: Stable affect, answering questions appropriately Neuro: A/Ox3 noted to move all extremities spontaneously Ext: no peripheral edema Plan Diagnosis/Plan: Unchanged I have reviewed the history and physical and performed a pertinent physical examination on my patient. No changes have occurred unless specified. Time Spent With Patient Time: Total time managing care of this patient today ____ minutes.
[2025-02-05] MEDS: Magnesium Sulfate/H2O 2 GM/50 ML PIGGYBACK IV (10:13)
--- NOTE | 2025-02-05 12:02 | P.OPN-COLO_ITS ---
Colonoscopy Operative Note Operative Note Date of Service: 02/05/25 Narrative: Procedure: Upper endoscopy and colonoscopy Indication: GERD, slipped band, cirrhosis, change in bowel habits Endoscopist: Gaby Harden MD Anesthesia Provider: Dr Shan Bill Anesthesia type: MAC Instrument: GIF-H190 and PCF-[id number] EGD Procedure:?? The procedure, indications, preparation and potential complications were reviewed with the patient, who indicated understanding and gave written informed consent to proceed. The endoscope was introduced through the mouth, and advanced to the 2nd part of the duodenum. The mucosa was carefully examined on slow withdrawal of the endoscope. The patient tolerated the procedure well. There were no immediate complications.? EGD Findings:? * Esophagus:? Mild cricopharyngeal narrowing noted which was not dilated due to presence of varices. The Z-line was at 40 cm. 2 columns of varices were noted in the lower third of the esophagus occupying < 50% of the lumen. * Stomach:? Erythema and erosions in the whole stomach more prominently in cardia and antrum. Cold forceps biopsies were taken. Retroflexion was performed in the cardia with appearance consistent with slipped lap band. * Duodenum:? Mild erythem and edema in the duodenal bulb. Cold forceps biopsies were taken from the duodenal bulb and 2nd portion of the duodenum to rule out celiac sprue. Additional intervention: The scope was removed and [employer] 7-shooter was affixed to the tip of the scope in usual fashion. The scope was reintroduced and band ligation was performed of the largest varix at 36 cm. This successfully decompressed the varices. The scope was then withdrawn. Colonoscopy Procedure:? The patient was then turned for the colonoscopy. A digital rectal exam was performed which was normal.? A distal attachment cap was affixed to the tip of the scope and the colonoscope was then inserted through the anus and advanced through the colon and advanced to the cecum at 75 cm.? Appendiceal orifice and ileocecal valve were identified. Mucosa was carefully examined under high definition white light as the instrument was slowly withdrawn in a retrograde panoramic fashion. Retroflexion was performed in rectum. The procedure was difficult due to a very fixed and spastic colon and required placement of abdominal binder to completely intubate the cecum. An adult colonoscopy was not available at the time of the procedure. The quality of the prep was BBPS: 2+3+3 = adequate Withdrawal time 12 minutes Limitations: No limitations Findings: Mucosa: Normal colon mucosa. Previous rectosigmoid anastomosis. Protruding lesions: * Small internal hemorrhoids without stigmata of recent bleeding. Impression: 1. Esophageal varices (EVBLx1) 2. Gastritis (biopsy) 3. Duodenitis (biopsy) 4. Normal colon mucosa (biopsy) 5. Internal hemorrhoids Recommendations:?? * Follow-up path results * Will check with library customer service clerk if metoprolol can be switched to carvedilol * HOLD anticoagulation x 48h * Start omeprazole 20 once daily * Start carafate 10 ml QID x 14 days to avoid post banding ulcers * Barium swallow as outpatient * Repeat colonoscopy for CRC surveillance in 5 years. Recommend starting with adult scope.
[2025-02-05 12:07] VITALS: BP 90/63; PULSE 84; RESP 16; TEMP 36.3; O2SAT 94
[2025-02-05 12:21] VITALS: BP 111/65; PULSE 93; RESP 16; TEMP 36.3; O2SAT 96
== END 2025-02-05 13:09 | disposition home or self-care (01) ==
PROVIDERS: PCP Internal Medicine; Visit Provider Internal Medicine
PROC: (CPT 45378; principal; 2025-02-05 11:00)
DX: R19.4 Change in bowel habit (principal); K57.30 Diverticulosis of large intestine without perforation or abscess without bleeding; K64.8 Other hemorrhoids; Z85.038 Personal history of other malignant neoplasm of large intestine; Z98.0 Intestinal bypass and anastomosis status; K74.60 Unspecified cirrhosis of liver; Z90.49 Acquired absence of other specified parts of digestive tract; K58.0 Irritable bowel syndrome with diarrhea; K95.09 Other complications of gastric band procedure; K52.9 Noninfective gastroenteritis and colitis, unspecified; R11.2 Nausea with vomiting, unspecified; K29.70 Gastritis, unspecified, without bleeding; K29.80 Duodenitis without bleeding; I85.00 Esophageal varices without bleeding; Z87.19 Personal history of other diseases of the digestive system; K21.9 Gastro-esophageal reflux disease without esophagitis; D64.9 Anemia, unspecified; D69.6 Thrombocytopenia, unspecified; I10 Essential (primary) hypertension; J39.2 Other diseases of pharynx; E78.5 Hyperlipidemia, unspecified; I25.10 Atherosclerotic heart disease of native coronary artery without angina pectoris; Z95.1 Presence of aortocoronary bypass graft; I48.19 Other persistent atrial fibrillation; E66.9 Obesity, unspecified; Z68.35 Body mass index [BMI] 35.0-35.9, adult; R26.81 Unsteadiness on feet; H91.92 Unspecified hearing loss, left ear; Z79.01 Long term (current) use of anticoagulants; Z79.899 Other long term (current) drug therapy; Z87.891 Personal history of nicotine dependence; Z98.890 Other specified postprocedural states
CPT/HCPCS: 45378; 43239; 43244; 88305; 88313; 88342; J2003; J2371; J2704; J3010; J3475

== ENCOUNTER → 2025-02-05 08:38 | Outpatient (BNV) | payer MEDICARE, SELFPAY | PROVIDERS: PCP Internal Medicine; Visit Provider Internal Medicine | DX: K21.9 Gastro-esophageal reflux disease without esophagitis (principal); K95.09 Other complications of gastric band procedure; K74.60 Unspecified cirrhosis of liver; I85.00 Esophageal varices without bleeding; K29.70 Gastritis, unspecified, without bleeding; R19.4 Change in bowel habit; K64.8 Other hemorrhoids | CPT/HCPCS: 43239; 43244; 45378 ==

== ENCOUNTER 2025-03-28 10:57 | Outpatient (REF) | payer MEDICARE, SELFPAY ==
--- OUTSIDE RECORDS SUMMARY | 2025-03-28 12:10 | XMS_ITS ---
Author Organization [facility] Address [address] [place] [address] [place] [address] Care Team Providers Care Mobile Lounge Driver Name Role Phone Juan M WADDELL, Molly Jensen Primary Care Provider Un available Black, Carli Unavailable [phone] REASON FOR VISIT No Show Encounters Encounter Location Date Provider Diagnosis [facility] [address] [place] [address] 05/10/2024 Carli Black Plan Of Treatment No Information Progress Notes * Deidre TODOB: (68 yo F)Acc No.[id number]:05/10/2024 Patient:?YousufErinDeidre :1955???Age:68 Y???Sex:Female Address:[address] [place] [address] [place] [address] * true * Date:? Generated for Printi david/Yasmeen/eTransmitting on:?03/28/2025 12:09 PM EDT
--- OUTSIDE RECORDS SUMMARY | 2025-03-28 12:10 | XMS_ITS | Clinical Summary ---
[facility] Address [address] [place] [address] Care Team Providers Care Side Panel Hanger Name Role Phone Andrade Robles MD Primary Care Provider [phone] Surgical History Surgery Date Site/Laterality Comments COLECTOMY PROCEDURE:COLECTOMY SALIVARY GLAND SURGERY PROCEDURE:SALIVARY GLAND SURGERY CERVICAL SPINE SURGERY PROCEDURE:CERVICAL SPINE SURGERY ORIF WRIST FRACTURE Left PROCEDURE:ORIF WRIST FRACTURE CORONARY ARTERY BYPASS GRAFT 11/30/2018 N/A PROCEDURE:CORONARY ARTERY BYPASS GRAFT;COMMENT:Procedure: CORONARY ARTERY BYPASS GRAFTING - ON PUMP; Surgeon: Humberto Fontana MD; Location: [facility] CARDIAC OPERATING ROOM; Service: Cardiovascular; Laterality: N/A; OTHER SURGICAL HISTORY 11/30/2018 N/A PROCEDURE:TRANSESOPHAGEAL ECHOCARDIOGRAM (GRETEL) (CONTRAST/3D PRN);COMMENT:Procedure: TRANSESOPHAGEAL ECHOCARDIOGRAPHY; Surgeon: Humberto Fontana MD; Location: [facility] CARDIAC OPERATING ROOM; Service: Cardiovascular; Laterality: N/A; CARDIAC CATHETERIZATION 11/28/2018 Right PROCEDURE:CARDIAC CATHETERIZATION;COMMENT:Proced ure: LEFT HEART CATHETERIZATION; Surgeon: Saman Ibarra MD; Location: [facility] CARDIAC PLATER HELPER; Service: Cardiology; Laterality: Right; Medical History Medical History Date Comments Colon cancer (CMS/HCC V24, CMS/HCC V28) 2016 DX:Colon cancer (HCC);COMMENT:s/p resection and chemo Neuropathy DX:Neuropathy Bipolar 1 disorder (CMS/HCC V24, CMS/HCC V28) DX:Bipolar 1 disorder (HCC) Anxiety DX:Anxiety GERD (gastroesophageal [...] - 2023-2 5 season) 2024 Influenza Vaccine (Season Ended) 2025 RSV Immunization Adult Patie nts (1 - 1-dose 75+ series) 2030 HIB [...] age to complete this topic Meningococcal B Vaccine Aged Out No l onger eligible based on patient's age to complete this topic RSV Immunization Patients Un juliette 20 months Aged Out No longer eligible b ased on patient's age to complete this topic Varicella Vaccines Aged Out No longer eligible based on patient's age to complete this topic Medical Devices Implanted Type Area Store Planner Device Identifier Shelf Expiration Date Model / Serial / Lot Device Angio-Seal Vip .035in 70cm 6fr [employer] - [id number] Implanted:11/28 (Quantity not on file) [facility] [id number] / / Care Teams Side Panel Hanger Relationship Specialty Start Date End Date Andrade Robles MD [address] [place] [address] PCP - General Cardiology 11/27/18
--- OUTSIDE RECORDS SUMMARY | 2025-03-28 12:10 | XMS_ITS | Clinical Summary ---
Author Organization [facility] Address [address] [place] [address] Care Team Providers Care Pyroglazer Name Role Phone Andrade Robles MD Primary Care Provider [phone] Allergies No known active allergies Medications Medication [...] ADULT PO) Take by mouth. 0 Active [place] 3 1000 MG CAPS Take by mouth. [...] this topic Medical Devices Implanted Type Area [place]ac Tanner Device Identifier Shelf Expiration Date Model / Serial / Lot Device Angio-Seal Vip .035in 70cm 6fr [employer] Guidewire - [id number] - [id number] [place] [facility] [place] [facility] (Quantity not on file) [employer] [id number] / / Advance Directives For more information, please contact: [phone] Latest Code Status on File Code Status [...] way: discussion with patient . Care Teams Pyroglazer Relationship Specialty Start Date End Date Andrade Robles MD PCP - General Cardiology 11/27/18
--- OUTSIDE RECORDS SUMMARY | 2025-03-28 12:10 | XMS_ITS | Patient Health Record ---
Author Organization [facility] - [facility] Address [address] [place] [address] Support Name Relationship Address Phone Deidre To Guarantor Unknown [phone] Reason For Referral No Information Plan Of Treatment No Information Insurance Providers Payer Name Payer Address Payer Phone Subscriber Number Group Number Insured Name Patient Relationship to Insured Coverage Start Date Coverage End Date Medicare [address] [address] [place] [address] [id number] Deidre To Self - patient is the insured Pre Op Covid Testing not for submission KHRIS cotto [id number] preop Deidre To Self - patient is the insured
--- OUTSIDE RECORDS SUMMARY | 2025-03-28 12:10 | XMS_ITS ---
Author Organization [facility] Address [address] [place] [address] Care Team Providers Care Learn To Swim Instructor Name Role Phone Juan M WADDELL, Molly Jensen Primary Care Provider Un available Carli Jenkins [phone] Encounters Encounter Location Date Provider Diagnosis [address] [address] 05/10/2024 Carli Jenkins Plan Of Treatment No Information Progress Notes * Deidre TODOB: (69 yo F)Acc No.[id number]:05/10/2024 Progress Note Patient:Deidre SMILEY Provider:?Carli Jenkins DPM :1955???Age:68 Y???Sex:Female D ate:05/10/2024 Address:[address] [place] [id number] Pcp:Sumanth Orozco Subjective: * Chief Complaints: * ??? * Medical History:? Objective: * Vitals:? Assessment: Plan: * Treatment: * Images: * The named appointment provid er may or may not be the originator of this progress note, and it is not deemed complete until electronically signed by the appointment provider. Sign off status: Pending * Provider:?Carli Jenkins DPM Date:?2023 Generated for Steve hernandez/Yasmeen/eTransmitting on:?03/28/2025 12:09 PM EDT
--- OUTSIDE RECORDS SUMMARY | 2025-03-28 12:10 | XMS_ITS | Patient Health Record ---
Author Organization [facility] [place] Address [address] [place] [address] Care Team Providers Care Manager Oracle Database Name Role Phone Juan M WADDELL, Molly Jensen Primary Care Provider Un available Black, Carli Unavailable [phone] Allergies No Known Allergies Reason For Referral No Information Medications Medication SIG (Take, Route, Frequency, Duration) Notes Start Date End Date Status [place] 3 1000 MG 1 capsule Orally Thr [...] Problem Acquired hammer toe of right foot (9516834042911997) Other hammer toe(s) (acquired), right foot (M20.41) Active confirmed Problem Acquired hammer toe of left foot (3336404333220446) Other hammer toe(s) (acquired), left foot (M20.42) Active confirmed Problem 721952013 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 confirmed Problem Bilateral atherosclerosis of arteries of lower limbs (disorder) (71120870595899332 ) Atherosclerosis of [place] artery of both lower extremities, with unspecified presence of clinical manifestation (I70.203) Active confirmed Encounters Encounter Location Date Provider Diagnosis [facility] [address] [address] 05/10/2024 Carli Jenkins Plan Of Treatment Pending Test Test Name Order Date 90474-MIFH SKIN LESIONS, 2 TO 4 01/26/20 24 [id number] DYSTROPHIC NAILS ANY # Insurance Providers Payer Name Payer Address Payer Phone Subscriber Number Group Number Insured Name Patient Relationship to Insured Coverage Start Date Coverage End Date Medicare National Govt Svcs Inc [address] [place] [address] [id number] Deidre To Self - patient is the insured AARP Secondary to Medicare [address] [place] [address] [id number] Deidre To Self - patient is the [...] left foot 1996 Hospitalization History Reason Date(Month/Year) [facility] -3 day stay -fall 02/04
--- OUTSIDE RECORDS SUMMARY | 2025-03-28 12:10 | XMS_ITS ---
Author Organization [facility] Address [address] [facility] [place] [address] Care Team Providers Care Press Tender Smoke Signal Name Role Phone Juan M WADDELL, Molly Jensen Primary Care Provider Un available Black, Carli Unavailable [phone] REASON FOR VISIT Secondary Ins Encounters Encounter Location Date [facility] [address] [address] 01/26/2024 Carli Black Plan Of Treatment No Information Progress Notes * Deidre TODOB: (68 yo F)Acc No.[id number]:01/26/2024 Patient:?Yousuf Deidre :1955???Age:68 Y???Sex:Female Address:[address] [place] [address], [place] [address] * true * Date:? Generated for Radhai david/Yasmeen/eTransmitting on:?03/28/2025 12:09 PM EDT
[2025-03-28 13:56] LABS: Alanine Aminotransferase 17 U/L (0-31); Anion Gap 13 (12-20); Aspartate Amino Transferase 45 U/L (5-31); Blood Urea Nitrogen 10 mg/dL (9-16); Calcium 8.4 mg/dL (8.4-10.2); Carbon Dioxide 21 mmol/L (22-29); Chloride 107 mmol/L (96-108); Cholesterol 106 mg/dL (<200); Estimated Glomerular Filt Rate > 60; Glucose Fasting 98 mg/dL (60-99); HDL Cholesterol 44 mg/dL (>40); LDL Cholesterol Calculated 51 mg/dL (<100); Magnesium 1.4 mg/dL (1.6-2.6); Potassium 3.8 mmol/L (3.3-5.1); Sodium 137 mmol/L (135-145); Triglycerides 58 mg/dL (<150)
== END 2025-03-28 10:58 | disposition home or self-care (01) ==
LOC: HO.HMGCLDS 10:57
PROVIDERS: PCP Internal Medicine; Visit Provider Internal Medicine
DX: I25.10 Atherosclerotic heart disease of native coronary artery without angina pectoris (principal); E87.1 Hypo-osmolality and hyponatremia; E66.9 Obesity, unspecified; I65.23 Occlusion and stenosis of bilateral carotid arteries; I10 Essential (primary) hypertension; E78.5 Hyperlipidemia, unspecified; E83.42 Hypomagnesemia; K52.9 Noninfective gastroenteritis and colitis, unspecified
CPT/HCPCS: 36415; 80048; 80061; 83735; 84450; 84460

== ENCOUNTER 2025-04-01 07:43 | Outpatient (AMB) | payer MEDICARE, SELFPAY ==
--- OUTSIDE RECORDS SUMMARY | 2025-04-01 07:45 | XMS_ITS ---
Author Organization [facility] Address [address] [place] [address] [place] [address] Care Team Providers Care Charger Tester Name Role Phone Juan M WADDELL, Molly Jensen Primary Care Provider Un available Black, Carli Unavailable [phone] REASON FOR VISIT No Show Encounters Encounter Location Date Provider Diagnosis [facility] [address] [place] [address] 05/10/2024 Carli Black Plan Of Treatment No Information Progress Notes * Deidre TODOB: (68 yo F)Acc No.[id number]:05/10/2024 Patient:?YousufErinDeidre :1955???Age:68 Y???Sex:Female Address:[address] [place] [address] [place] [address] * true * Date:? Generated for Radhai david/Yasmeen/eTransmitting on:?04/01/2025 07:45 AM EDT
--- OUTSIDE RECORDS SUMMARY | 2025-04-01 07:45 | XMS_ITS | Patient Health Record ---
Author Organization [facility] Address [address] [place] [address] Care Team Providers Care Environmental Project Manager Name Role Phone Juan M WADDELL, Molly Jensen Primary Care Provider Un available Black, Carli Unavailable [phone] Allergies No Known Allergies Reason For Referral No Information Medications Medication SIG (Take, Route, Frequency, Duration) Notes Start Date End Date Status [place] 3 1000 MG 1 capsule Orally Thr [...] Problem Acquired hammer toe of right foot (847055000154 9105) Other hammer toe(s) (acquired), right foot (M20.41) Active confirmed Problem Acquired hammer toe of left foot (116841870328 9103) Other hammer toe(s) (acquired), left foot (M20.42) Active confirmed Problem 243782703 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 confirmed Problem Atherosclerosis of [place] artery of both lower extremities, with unspecified presence of clinical manifestation (I70.203) Active confirmed Encounters Encounter Location Date Provider Diagnosis [facility] [address] [place] [address] 05/10/2024 Carli Jenkins Plan Of Treatment Pending Test Test Name Order Date 15866-PKVE SKIN LESIONS, 2 TO 4 01/26/20 24 [id number] DYSTROPHIC NAILS ANY # Insurance Providers Payer Name Payer Address Payer Phone Subscriber Number Group Number Insured Name Patient Relationship to Insured Coverage Start Date Coverage End Date Medicare National Govt Svcs Inc [address] [place] [address] [id number] Deidre To Self - patient is the insured AARP Secondary to Medicare [address] [place] [address] [id number] Deidre To Self - patient is the [...] left foot 1996 Hospitalization History Reason Date(Month/Year) [facility] [place] -3 day stay -fall 02/04
--- OUTSIDE RECORDS SUMMARY | 2025-04-01 07:45 | XMS_ITS ---
Author Organization [facility] Address [address] [place] [address] Care Team Providers Care Jet Operator Name Role Phone Juan M WADDELL, Molly Jensne Primary Care Provider Un available Black, Carli Unavailable [phone] REASON FOR VISIT Secondary Ins Encounters Encounter [facility] Date [facility] [address] [address] 01/26/2024 Carli Black Plan Of Treatment No Information Progress Notes * Deidre TODOB: (68 yo F)Acc No.[id number]:01/26/2024 Patient:?Yousuf Deidre :1955???Age:68 Y???Sex:Female Address:[address] [place] [address], [place] [address] * true * Date:? Generated for Radhai david/Yasmeen/eTransmitting on:?04/01/2025 07:45 AM EDT
--- OUTSIDE RECORDS SUMMARY | 2025-04-01 07:46 | XMS_ITS | Clinical Summary ---
Author Organization [facility] Address [address] [place] [address] Care Team Providers Care Patient Support Associate Name Role Phone Andrade Robles MD Primary Care Provider [phone] Allergies No known active allergies Medications Medication [...] ADULT PO) Take by mouth. 0 Active [place] 3 1000 MG CAPS Take by mouth. [...] this topic Medical Devices Implanted Type Area Manager Gyn Device Identifier Shelf Expiration Date Model / Serial / Lot Device Angio-Seal Vip .035in 70cm 6fr [employer] Guidewire - [id number] - [id number] Implanted:11/28 at [facility] (Quantity not on file) [employer] [id number] / / Advance Directives For more information, please contact: [phone] Latest Code Status on File Code Status [...] way: discussion with patient . Care Teams Patient Support Associate Relationship Specialty Start Date End Date Andrade Robles MD PCP - General Cardiology 11/27/18
--- OUTSIDE RECORDS SUMMARY | 2025-04-01 07:46 | XMS_ITS | Clinical Summary ---
Author Organization [facility] Address [address] [place] [address] Care Team Providers Care Farmworker Name Role Phone Andrade Robles MD Primary Care Provider [phone] Surgical History Surgery Date Site/Laterality Comments COLECTOMY PROCEDURE:COLECTOMY SALIVARY GLAND SURGERY PROCEDURE:SALIVARY GLAND SURGERY CERVICAL SPINE SURGERY PROCEDURE:CERVICAL SPINE SURGERY ORIF WRIST FRACTURE Left PROCEDURE:ORIF WRIST FRACTURE CORONARY ARTERY BYPASS GRAFT 11/30/2018 N/A PROCEDURE:CORONARY ARTERY BYPASS GRAFT;COMMENT:Procedure: CORONARY ARTERY BYPASS GRAFTING - ON PUMP; Surgeon: Humberto Fontana MD; Location: [facility]; Service: Cardiovascular; Laterality: N/A; OTHER SURGICAL HISTORY 11/30/2018 N/A PROCEDURE:TRANSESOPHAGEAL ECHOCARDIOGRAM (GRETEL) (CONTRAST/3D PRN);COMMENT:Procedure: TRANSESOPHAGEAL ECHOCARDIOGRAPHY; Surgeon: Humberto Fontana MD; Location: [facility]; Service: Cardiovascular; Laterality: N/A; CARDIAC CATHETERIZATION 11/28/2018 Right PROCEDURE:CARDIAC CATHETERIZATION;COMMENT:Proced ure: LEFT HEART CATHETERIZATION; Surgeon: Saman Ibarra MD; Location: [facility]; Service: Cardiology; Laterality: Right; Medical History Medical [...] this topic Medical Devices Implanted Type Area Furniture Finisher Apprentice Device Identifier Shelf Expiration Date Model / Serial / Lot Device Angio-Seal Vip .035in 70cm 6fr [employer] Guidewire - [id number] Implanted:11/28 (Quantity not on file) [facility] [id number] / / Care Teams Farmworker Relationship Specialty Start Date End Date Andrade Robles MD [address] [place] [address] PCP - General Cardiology 11/27/18
--- OUTSIDE RECORDS SUMMARY | 2025-04-01 07:46 | XMS_ITS ---
Author Organization [facility] Address [address] [place] [address] Care Team Providers Care Wheel Grinder Name Role Phone Juan M WADDELL, Molly Jensen Primary Care Provider Un available Carli Jenkins [phone] Encounters Encounter Location Date Provider Diagnosis [address] [address] 05/10/2024 Carli Jenkins Plan Of Treatment No Information Progress Notes * Deidre TODOB: (69 yo F)Acc No.[id number]:05/10/2024 Progress Note Patient:Deidre SMILEY Provider:?Carli Jenkins DPM :1955???Age:68 Y???Sex:Female D ate:05/10/2024 Address:[address] [place] [address] Pcp:Sumanth Orozco Subjective: * Chief Complaints: * ??? * Medical History:? Objective: * Vitals:? Assessment: Plan: * Treatment: * Images: * The named appointment provid er may or may not be the originator of this progress note, and it is not deemed complete until electronically signed by the appointment provider. Sign off status: Pending * Provider:?Carli Jenkins DPM Date:?2023 Generated for Steve hernandez/Yasmeen/eTransmitting on:?04/01/2025 07:45 AM EDT
--- OUTSIDE RECORDS SUMMARY | 2025-04-01 07:46 | XMS_ITS | Patient Health Record ---
Author Organization [facility] Address [address] [place] [address] Support Name Relationship Address Phone Deidre To Guarantor Unknown [phone] Reason For Referral No Information Plan Of Treatment No Information Insurance Providers Payer Name Payer Address Payer Phone Subscriber Number Group Number Insured Name Patient Relationship to Insured Coverage Start Date Coverage End Date Medicare [address] [address] [place] [address] [id number] Deidre To Self - patient is the insured Pre Op Covid Testing not for submission KHRIS cotto [id number] preop Deidre To Self - patient is the insured
[2025-04-01 07:55] VITALS: BP 118/80; PULSE 82; RESP 16; TEMP 36.6; O2SAT 97; BMI 34.6
--- NOTE | 2025-04-01 07:55 | A.OFFPC_ITS ---
Vital Signs 04/01/25 07:55 Height 5 ft Weight 177 lb BMI 34.6 BP 118/80 Blood Pressure Location Lt brachial Respiration 16 Pulse 82 Pulse Source Pulse Oximeter Temp 97.8 F Temp Source Oral Pulse Oximetry (%) 97 Oxygen Delivery Method Room Air Intake Visit Reasons: 4 months f/up Intake Note: Pt here today for her 4mo. f/u Allergies No Known Allergies Allergy (Verified 04/01/25 08:20) Medication List - Last Reconciled 04/01/25 by Molly Mcgowan MD acetaminophen 650 mg PO Q8H PRN albuterol sulfate 2.5 mg inhalation Q6H PRN ammonium lactate 12% 1 appl topical BID PRN atorvastatin 80 mg PO DAILY carbamazepine 200 mg PO TID carvedilol 3.125 mg PO BID 90 days cholecalciferol (vitamin D3) 50 mcg PO DAILY citalopram 40 mg PO DAILY lactobacillus combination no.4 (Probiotic) 3,000 mmu cells PO DAILY@0800 magnesium glycinate 300 mg PO BEDTIME midodrine 5 mg PO TID PRN multivitamin 1 tab PO DAILY nystatin 1 appl topical DAILY PRN omeprazole 20 mg PO DAILY 90 days ondansetron 8 mg translingual Q8H PRN quetiapine 100 mg PO BEDTIME rivaroxaban (Xarelto) 20 mg PO DAILY@1700 temazepam 15 mg PO BEDTIME Tobacco use date assessed: 04/01/25 Fall risk assessment: 1 Fall in past year Last assessed Fall Risk: 04/01/25 Dental Screening Dental Screen Date: 04/01/25 HPI 4 months f/up HPI Details - The patient is a 69-year-old female pr esenting with with history of chronic diarrhea with subsequent hypomagnasemia - The diarrhea, present since the colon cancer surgery 9 years ago, correlates with magnesium supplementation aimed at addressing deficiencies. - Post-surgical issues include recurrent small bowel obstructions attributed to adhesions, with previous episodes successfully managed conservatively. - Magnesemia is suboptimal though trendi ng slightly upwards; peanut butter consumption has been contributing to magnesium intake. - The patient experienced neuropathy fol lowing chemotherapy and surgery, which has lessened since her recovery from colon cancer. [facility] Medical History (Updated 04/08/25 @ 21:48 by Molly Mcgoawn MD) COPD (chronic obstructive pulmonary disease) C. difficile colitis History of small bowel obstruction Hx of colon cancer, stage III Bipolar 1 disorder CAD (coronary artery disease) Persistent atrial fibrillation Essential hypertension Hyperlipidemia Personal history of nicotine dependence Unsteady gait Thrombocytopenia Anemia Cervical radiculopathy due to degenerative joint disease of spine History of radius fracture Degenerative disc disease, cervical Acquired deafness of left ear Surgical History Status post coronary artery bypass graft History of coronary artery bypass graft x 2 (~2018) History of cardiac catheterization History of partial colectomy (~2015) History of reversal of ileostomy History of resection of small bowel (~2020) History of laparoscopic adjustable gastric banding (~2004) History of laparoscopic cholecystectomy (~2003) History of parotidectomy (~2014) History of cervical discectomy (~2013) History of surgery on right wrist History of colonoscopy History of esophagogastroduodenoscopy (EGD) History of appendectomy (~2003) History of tonsillectomy History of bunionectomy Family History Sister Substance use disorder Insulin dependent type 1 diabetes mellitus Mother Colon cancer Breast cancer Coronary artery disease High cholesterol Essential hypertension Father Heart disease Brother Heart disease Social History Household Members: None Housing: Apartment Are you a primary healthcare specialist to a significant other at home: No Do you presently have visiting nurse or other home services: No Unable to assess alcohol history related to: Unable to respond Alcohol intake: never Patient Tobacco Use Status: Former Tobacco user Tobacco use type: Cigarette Years Smoked: (former smoker - onset 30yo, 1ppd x 33yrs, 30pyh, quit 11/2018) e-Cigarette/Vaping Use: Never Used Second Hand Smoke Exposure: No Advance Directives Date on File: 03/02/24 service: No Current occupational status: retired Cognitive needs: No Hearing needs: No Vision needs: Yes Questionnaire PHQ-9 Over the last 2 weeks, how often have you been bothered by any of the following problems? Depression Screening Interpretation: Negative Depression Screening Done: Yes Source: Developed by Drs. Philipp Najera, Nga Sage, Benjamin Berman and colleagues, with an educational ashli from [employer]. Thrive Questionnaire Date Thrive assessed: 11/27/24 I am a: Patient What is your living situation today?: I have a steady place to live Within the past 12 months, did the food you bought not last and you didn't have the money to get more?: Never true Within the past 12 months, did you worry whether your food would run out before you got money to buy more?: Never true Do you have trouble paying for medicines?: Yes Do you have trouble getting transportation to medical appointments?: No Do you have trouble paying your heating and electricity bill?: No Do you have trouble taking care of your child, family member or friend?: No Do you have trouble with day-to-day activities such as bathing, preparing meals, shopping, managing finances, etc.?: No Are you currently unemployed and looking for a job?: No Are you interested in more education?: No Please select the resources that you would like help with: None Currently or been in a relationship where the following occur: No concerns reported THRIVE Score: 0 AUDIT C Alcohol Use Questionnaire (AUDIT-C) 2. How many drinks containing alcohol do you have on a typical day when you are drinking?: 1 or 2 3. How often do you have six or more drinks on one occasion?: Never Total Score: 0 REY-7 AMB Questionnaire REY-7 Date REY - 7 assessed: 11/27/24 Source: Developed by Drs. Philipp Najera, Nga Sage, Benjamin Berman and colleagues, with an educational ashli from [employer]. Review of Systems Const Denies chills, Denies fatigue, Denies fever(s), Denies frequent falls, Denies weakness, Denies weight gain and Denies weight loss ENT Denies dizziness Card Denies chest pain, Denies leg edema, Denies lightheadedness, Denies palpitations, Denies dyspnea and Denies dyspnea on exertion Resp Denies cough, Denies dyspnea and Denies dyspnea on exertion GI Denies hematochezia Musc Denies abnormal gait, Denies muscle weakness, Denies numbness, Denies radiating pain into limb and Denies tingling Neuro Denies abnormal gait, Denies dizziness, Denies frequent falls, Denies numbness, Denies tingling and Denies weakness Endo Denies fatigue and Denies palpitations Physical exam (Primary Care) Vital Signs: Last Vital Signs Temp 97.8 F 04/01/25 07:55 Pulse 82 04/01/25 07:55 Resp 16 04/01/25 07:55 BP 118/80 04/01/25 07:55 Pulse Ox 97 04/01/25 07:55 Oxygen Delivery Method Room Air 04/01/25 07:55 BMI result Body Mass Index 34.6 Tobacco/Smoking Status: Tobacco use Status Tobacco use date assessed 04/01/25 04/01/25 07:59 Patient Tobacco Use Status Former Tobacco user 04/01/25 07:57 Tobacco use type Cigarette 04/01/25 07:57 e-Cigarette/Vaping Use Never Used 04/01/25 07:57 Depression Screening Interpretation: Negative Thrive Assessment: Date of Thrive Assessment Date Thrive assessed 11/27/24 04/01/25 07:57 Currently or been in a relationship where the following occur: No concerns reported Const General: no acute distress and alert Orientation/consciousness: patient oriented x3 [facility] General nose exam: Normal external nose present and No nasal discharge present Mouth: Normal oral and palatal mucosa present, oropharynx normal and moist mucous membranes Eyes General: appearance normal, both eyes and all related structures Neck Neck: Yes full ROM, Yes no lymphadenopathy and Yes supple Resp Effort & Inspection: normal respiratory effort and able to speak in complete sentences Auscultation: clear to auscultation bilaterally Cardio Rhythm: abnormal rhythm irregularly irregular GI Palpation (GI): Soft to palpation, nontender and no masses Auscultation: normal bowel sounds Back/Spine/Pelvis Back: No back tenderness Skin General skin exam: no rashes or lesions noted Neuro General: patient oriented x3, moves all extremities, Normal light touch and pain sensation and no focal motor deficits Cranial nerves: Yes CN's II-XII intact bilaterally Cognition (Neuro): normal cognition Extrem General: Yes full ROM, Yes no joint enlargement, Yes no clubbing, cyanosis or edema and Yes no calf tenderness Results Reviewed Results Reviewed: Name: Deidre To Age/Sex: 69/F : 1955 Unit#: [id number] Attend Dr: Molly Mcgowan MD Re03/28/25 Status: DEP REF Location: [facility] Disch: SPEC : [id number] PABLITO: 03/28/25-1100 STATUS: COMP REQ : [id number] RECD: 03/28/25-[address]: Molly Mcgowan MD COMP: 03/28/25-1355 ENTERED: 03/28/25-[address]: ORDERED: Met Prof Fast, MG, AST, ALT, Lipid Panel Test Result Flag Reference Sodium 137 135-145 mmol/L Potassium 3.8 3.3-5.1 mmol/L CL 107 96-108 mmol/L CO2 21 L 22-29 mmol/L Gap 13 12-20 BUN 10 9-16 mg/dL Creat 0.69 0.5-1.4 mg/dL eGFR > 60 Chronic Kidney Disease: Estimated GFR < 60 mL/min/1.73m2 Severe Kidney Disease: Estimated GFR < 15 mL/min/1.73m2 FBS 98 60-99 mg/dL CA 8.4 8.4-10.2 mg/dL Magnesium 1.4 *L 1.6-2.6 mg/dL Critical value for MAG: Results called to and read back by: HEVER Person calling: CINDI Date: 03/28/25 Time: 1356 AST (GOT) 45 H 5-31 U/L ALT (GPT) 17 0-31 U/L Triglyceride 58 <150 mg/dL Desirable Triglyceride: less than 150 mg/dL Borderline High Triglyceride 150-199 mg/dL High Triglyceride: 200-499 mg/dL Very High Triglyceride: greater than or equal to 5OO mg/dL Cholesterol 106 <200 mg/dL Desirable Cholesterol: less than 200 mg/dL Borderline High Cholesterol: 200-239 mg/dL High Cholesterol: greater than 239 mg/dL LDL Calculated 51 <100 mg/dL Desirable LDL: less than 100 mg/dL Near Optimal/Above Optimal LDL: 110-129 mg/dL Borderline High LDL: 130-159 mg/dL High LDL: 160-189 mg/dL Very High LDL: greater than or equal to 190 mg/dL HDL 44 >40 mg/dL Desirable HDL: greater than 40 mg/dL Note: This HDL assay may give artificially low results in patients with liver disease. Coding Level of Care Code Est Pt Level 4 (36735) Diagnoses Hypomagnesemia E83.42 Encounter for screening mammogram for malignant neoplasm of breast Z12.31 Breast cancer screening modality: mammogram Osteoporosis screening Z13.820 Assessment & Plan Assessment & Plan (1) Hypomagnesemia: Code(s): E83.42 - Hypomagnesemia Category: Medical (2) Breast cancer screening: Code(s): Z12.39 - Encounter for other screening for malignant neoplasm of breast Qualifiers: Breast cancer screening modality: mammogram Qualified Code(s): Z12.31 - Encounter for screening mammogram for malignant neoplasm of breast Plan: Mammogram screening ordered (3) Osteoporosis screening: Code(s): Z13.820 - Encounter for screening for osteoporosis Plan: Ordered bone density scan Plan Currently on magnesium glycinate 300 mg daily. Will repeat another magnesium level next week. Orders: Orders XR DEXA axial skeleton 04/01/25 Z12. - Encounter for screening mammogram for malignant neoplasm of breast, Z78.0 - Asymptomatic menopausal state MM tomosynthesis screening BI 04/01/25 Z12.31 - Encounter for screening mammogram for malignant neoplasm of breast, Z78.0 - Asymptomatic menopausal state Magnesium 04/11/25 E83.42 - Hypomagnesemia Medications: Changed From albuterol sulfate 2.5 mg inhalation Q6H PRN dyspnea J44.9 - Chronic obstructive pulmonary disease, unspecified To albuterol sulfate 2.5 mg (3 mL) inhalation Q12H PRN 180 mL 0RF dyspnea J44.9 - Chronic obstructive pulmonary disease, unspecified Refilled nystatin 1 appl topical DAILY PRN 60 grams 1RF rash
== END 2025-04-01 10:15 | disposition home or self-care (01) ==
LOC: HO.HMCC 07:44
PROVIDERS: PCP Internal Medicine; Visit Provider Internal Medicine
DX: E83.42 Hypomagnesemia (principal); Z12.31 Encounter for screening mammogram for malignant neoplasm of breast; Z13.820 Encounter for screening for osteoporosis

== ENCOUNTER → 2025-04-01 07:43 | Outpatient (BNVA) | payer MEDICARE, SELFPAY | PROVIDERS: PCP Internal Medicine; Visit Provider Internal Medicine | DX: E83.42 Hypomagnesemia (principal) | CPT/HCPCS: 99212 ==

== ENCOUNTER 2025-04-25 09:12 | Outpatient (REF) | payer MEDICARE, SELFPAY ==
--- NOTE | ~2025-04-25 | FL_ITS ---
EXAMINATION: Barium swallow CLINICAL INDICATION: Bariatric surgery status. Previous history of lap band surgery 10 to15 years ago. COMPARISON: None. TECHNIQUE: Routine barium swallow was performed in upright view with thick barium and barium coated saltine crackers. Patient was subsequently placed prone lying and thin barium was administered. FINDINGS: Following oral administration of barium and effervescent granules is normal propagation of bolus from the oral cavity through the pharynx, esophagus into stomach without obstruction, narrowing or stricture. On oral administration of saltine crackers coated with thick barium there is normal oral mastication and propagation bolus from the oral cavity through the pharynx, esophagus into stomach. There is a lap band just at the GE junction which is widely patent. On placing patient in supine and prone lying there is no gastroesophageal reflux or hiatal hernia. The stomach is fully distended with barium and gas. No intraluminal filling defect or narrowing seen. Incidental finding of ventral plate and screws from C4 through C7 vertebra and intervening prosthesis at the C4-5, C5-6 and C6 testis 7 disc levels. FL/FL barium swallow with air IMPRESSION: There is lap band at the GE junction with a widely patent gastroesophageal lumen. No gastroesophageal reflux or hiatal hernia seen. The esophagus is widely patent. The stomach is unremarkable There is ventral plate and screws for fusion from C4 through C7 vertebrae without obstruction or narrowing. Fluoroscopy time 1 minute 52 seconds. Dose area product: [id number] Electronically signed by: Asim Bergman MD 04/25/2025 10:55 AM EDT
--- OUTSIDE RECORDS SUMMARY | 2025-04-25 09:53 | XMS_ITS | Patient Health Record ---
Author Organization [facility] Address [address] [place] [address] Care Team Providers Care Lead Custodian Name Role Phone Juan M WADDELL, Molly Jensen Primary Care Provider Un available Black, Carli Unavailable [phone] Allergies No Known Allergies Reason For Referral No Information Medications Medication SIG (Take, Route, Frequency, Duration) Notes Start Date End Date Status [place] 3 1000 MG 1 capsule Orally Thr [...] Problem Acquired hammer toe of right foot (9012271317966571) Other hammer toe(s) (acquired), right foot (M20.41) Active confirmed Problem Acquired hammer toe of left foot (9477388470699870) Other hammer toe(s) (acquired), left foot (M20.42) Active confirmed Problem 540215471 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 confirmed Problem Bilateral atherosclerosis of arteries of lower limbs (disorder) (98046656534715663 ) Atherosclerosis of [place] artery of both lower extremities, with unspecified presence of clinical manifestation (I70.203) Active confirmed Encounters Encounter Location Date Provider Diagnosis [facility] [address] [address] 05/10/2024 Carli Jenkins Plan Of Treatment Pending Test Test Name Order Date 84583-BRIE SKIN LESIONS, 2 TO 4 01/26/20 24 [id number] DYSTROPHIC NAILS ANY # Insurance Providers Payer Name Payer Address Payer Phone Subscriber Number Group Number Insured Name Patient Relationship to Insured Coverage Start Date Coverage End Date Medicare National Govt Svcs Inc [address] [facility] [place] [address] [id number] Deidre To Self - patient is the insured AARP Secondary to Medicare [address] [place] [address] [id number] Deidre To Self - patient is the [...] left foot 1996 Hospitalization History Reason Date(Month/Year) [facility] [place] -3 day stay -fall 02/04
== END 2025-04-25 09:13 | disposition home or self-care (01) ==
LOC: HO.XRAY 09:12
PROVIDERS: PCP Internal Medicine; Visit Provider Internal Medicine
DX: K21.9 Gastro-esophageal reflux disease without esophagitis (principal); Z98.84 Bariatric surgery status
CPT/HCPCS: 74221

== ENCOUNTER → 2025-04-25 09:16 | Outpatient (BNV) | payer MEDICARE, SELFPAY | PROVIDERS: PCP Internal Medicine; Visit Provider Radiology Diagnostic Radiology | DX: Z98.84 Bariatric surgery status (principal) | CPT/HCPCS: 74221 ==

== ENCOUNTER 2025-05-02 11:43 | Outpatient (REF) | payer MEDICARE, SELFPAY ==
--- OUTSIDE RECORDS SUMMARY | 2025-05-02 13:15 | XMS_ITS | Patient Health Record ---
Author Organization [facility] Address [address] [place] [address] Care Team Providers Care Formwork Carpenter Name Role Phone Juan M WADDELL, Molly Jensen Primary Care Provider Un available Black, Carli Unavailable [phone] Allergies No Known Allergies Reason For Referral No Information Medications Medication SIG (Take, Route, Frequency, Duration) Notes Start Date End Date Status [place] 3 1000 MG 1 capsule Orally Thr [...] Problem Acquired hammer toe of right foot (0286403008165963) Other hammer toe(s) (acquired), right foot (M20.41) Active confirmed Problem Acquired hammer toe of left foot (3819295053381270) Other hammer toe(s) (acquired), left foot (M20.42) Active confirmed Problem 581929762 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 confirmed Problem Bilateral atherosclerosis of arteries of lower limbs (disorder) (07947138158567650 ) Atherosclerosis of [place] artery of both lower extremities, with unspecified presence of clinical manifestation (I70.203) Active confirmed Encounters Encounter Location Date Provider Diagnosis [facility] [address] [address] 05/10/2024 Carli Jenkins Plan Of Treatment Pending Test Test Name Order Date 75121-NUEG SKIN LESIONS, 2 TO 4 01/26/20 24 [id number] DYSTROPHIC NAILS ANY # Insurance Providers Payer Name Payer Address Payer Phone Subscriber Number Group Number Insured Name Patient Relationship to Insured Coverage Start Date Coverage End Date Medicare National Govt Svcs Inc [address] [facility] [place] [address] [id number] Deidre To Self - patient is the insured AARP Secondary to Medicare [address] [place] [address] [id number] Deidre To Self - patient is the [...]
[2025-05-02 13:54] LABS: Magnesium 1.4 mg/dL (1.6-2.6)
== END 2025-05-02 11:44 | disposition home or self-care (01) ==
LOC: HO.HMGCLDS 11:43
PROVIDERS: PCP Internal Medicine; Visit Provider Internal Medicine
DX: E83.42 Hypomagnesemia (principal)
CPT/HCPCS: 36415; 83735

== ENCOUNTER 2025-05-08 10:03 | Outpatient (AMB) | payer MEDICARE, SELFPAY ==
--- NOTE | 2025-05-08 10:07 | MHC.OFFVIS ---
Vital Signs 05/08/25 10:09 Height 5 ft Weight 174 lb 2.643 oz BMI 34.0 BP 116/61 Blood Pressure Location Lt brachial Position Sitting Pulse 101 H Intake Visit Reasons: f/u Intake Note: Deidre presents in the office as a follow up. CC: states she had a BA swallow and here for results. [facility] Required: No Allergies No Known Allergies Allergy (Verified 05/08/25 10:09) HPI Comments Details: 68 y.o F with PMH of colon ca s/p partial colon resection with ileostomy (reversed), hx of CCY, hx of gastric band, cirrhosis, CAD s/p Pt reports main issue with alternating constipation and diarrhea x 2 years assoc with bloating and borborygmi. Pt also report post prandial urgency to have a BM. No blood in stool. Night time sx +. Last colo 2022 was BEFORE sx onset. Has also lost almost 50 lbs in this duration. Low appetite. Also avoids to eat due to fear of BM. Early satiety. Mother: CRC in [address]s [address] recent CT abd/pel done during 10/2024 [facility] admission also had following pertinent findings: Lap band device is again seen. This is looped along the gastroesophageal junction with port seen within the subcutaneous fat of the left midabdomen. Numerous collateral vessels are seen adjacent to the lap band device as before. Heterogeneous attenuation of the liver with mild periportal edema. Nodularity along the periphery of the liver. No discrete hepatic mass lesions identified. There is narrowing of the extrahepatic portal vein to the level of the portal confluence. There is focal dilation of the level of the portal confluence as seen previously. Splenic vein and superior mesenteric vein are patent. However, numerous collateral vessels are identified including gastric and esophageal varices. Diffuse mesenteric induration with small volume free fluid. Wall thickening of the colon, especially of the distal sigmoid colon and rectum. Suture material is seen at the rectosigmoid junction. Less pronounced colonic wall thickening in the more proximal colon. However, there is no areas of sparing of the colon. Distal small bowel is decompressed to the level of anastomotic sutures in the right hemipelvis with dilation of the small bowel proximal to this. Scattered mesenteric induration small volume free pelvic fluid. 02/05/25: EGD/colo 1. Esophageal varices (EVBLx1) 2. Gastritis (biopsy) 3. Duodenitis (biopsy) 4. Normal colon mucosa (biopsy) 5. Internal hemorrhoids Path: A. Duodenum, biopsy: Duodenal mucosa with preserved villi, hyperplastic Arvin's glands, and focal features of chronic/non-specific duodenitis. B. Gastric antrum, biopsy: Gastric antral mucosa with reactive changes, ectatic mucosal vessels with edema, and minimal chronic inactive inflammation; negative for H. pylori, intestinal metaplasia and dysplasia. C. Gastric cardia, biopsy: Gastric cardia mucosa with focal minimal chronic inactive inflammation; negative for H. pylori, intestinal metaplasia and dysplasia. D. Colon, right, biopsy: Colonic mucosa with lymphoid aggregates and focal ectatic vessels otherwise no specific change; no evidence of microscopic colitis. E. Colon, left, biopsy: Colonic mucosa with no specific change; no evidence of microscopic colitis. Barium swallow 04/2025: There is lap band at the GE junction with a widely patent gastroesophageal lumen. No gastroesophageal reflux or hiatal hernia seen. The esophagus is widely patent. The stomach is unremarkable. There is ventral plate and screws for fusion from C4 through C7 vertebrae without obstruction or narrowing. 05/08/25: Here for follow up after scopes and barium swallow. Main issue is diarrhea that occurs towards the end of the day. Small and large bowel bx normal. Pt doesnt think related to diet - but on questioning is on a lot of magnesium fortified foods to help with chronic hypomag and mag has a laxative effect. Reviewed that 1-2 loose BMs per day should not drop magnesium to this extent where shes not able to recover it to normal levels despite being on extra supplementation. Would recommend renal eval. In terms of cirrhosis, has been on coreg, has room to increase dose. Due for liver imaging which will be ordered today. No ascites or HE. I am also worried about the displaced lap band - sitting at GE junction juxtaposed with varices and at high risk of causing erosion into varices and bleeding. [facility] Medical History COPD (chronic obstructive pulmonary disease) C. difficile colitis History of small bowel obstruction Hx of colon cancer, stage III Bipolar 1 disorder CAD (coronary artery disease) Persistent atrial fibrillation Essential hypertension Hyperlipidemia Personal history of nicotine dependence Unsteady gait Thrombocytopenia Anemia Cervical radiculopathy due to degenerative joint disease of spine History of radius fracture Degenerative disc disease, cervical Acquired deafness of left ear Surgical History Status post coronary artery bypass graft History of coronary artery bypass graft x 2 (~2018) History of cardiac catheterization History of partial colectomy (~2015) History of reversal of ileostomy History of resection of small bowel (~2020) History of laparoscopic adjustable gastric banding (~2004) History of laparoscopic cholecystectomy (~2003) History of parotidectomy (~2014) History of cervical discectomy (~2013) History of surgery on right wrist History of colonoscopy History of esophagogastroduodenoscopy (EGD) History of appendectomy (~2003) History of tonsillectomy History of bunionectomy Family History Sister Substance use disorder Insulin dependent type 1 diabetes mellitus Mother Colon cancer Breast cancer Coronary artery disease High cholesterol Essential hypertension Father Heart disease Brother Heart disease Social History Household Members: None Housing: Apartment Are you a primary rn coronary care unit to a significant other at home: No Do you presently have visiting nurse or other home services: No Unable to assess alcohol history related to: Unable to respond Alcohol intake: never Patient Tobacco Use Status: Former Tobacco user Tobacco use type: Cigarette Years Smoked: (former smoker - onset 30yo, 1ppd x 33yrs, 30pyh, quit 11/2018) e-Cigarette/Vaping Use: Never Used Second Hand Smoke Exposure: No Advance Directives Date on File: 03/02/24 service: No Current occupational status: retired Cognitive needs: No Hearing needs: No Vision needs: Yes Review of Systems Const All systems reviewed & are unremarkable except as noted in HPI and below Physical Exam Vital Signs: Last Vital Signs Pulse 101 H 05/08/25 10:09 BP 116/61 05/08/25 10:09 BMI result Body Mass Index 34.0 No apparent distress Nonicteric Abdomen soft, nondistended, palpable lap band port Alert and oriented x3, normal gait Assessment & Plan Assessment & Plan (1) Chronic diarrhea: Code(s): K52.9 - Noninfective gastroenteritis and colitis, unspecified Category: Medical (2) Cirrhosis of liver: Code(s): K74.60 - Unspecified cirrhosis of liver Category: Medical (3) Varices, esophageal: Code(s): I85.00 - Esophageal varices without bleeding Category: Medical (4) GERD (gastroesophageal reflux disease): Comment: Patient is currently taking famotidine 40 mg p.o. daily. Code(s): K21.9 - Gastro-esophageal reflux disease without esophagitis Category: Medical Qualifiers: Esophagitis presence: esophagitis presence not specified Qualified Code(s): K21.9 - Gastro-esophageal reflux disease without esophagitis (5) Obesity (BMI 35.0-39.9 without comorbidity): Code(s): E66.9 - Obesity, unspecified Category: Medical (6) History of small bowel obstruction: Code(s): Z87.19 - Personal history of other diseases of the digestive system Category: Medical (7) Persistent atrial fibrillation: Code(s): I48.19 - Other persistent atrial fibrillation Category: Medical (8) History of laparoscopic adjustable gastric banding: Onset Date: ~2004 Code(s): Z98.84 - Bariatric surgery status Category: Surgical (9) Hypomagnesemia: Code(s): E83.42 - Hypomagnesemia Category: Medical Plan 1. Diarrhea Likely due to dietary triggers and excessive Mag in diet and meds. Doubt that the diarrhea is causing hypomag, as 1-2 loose BMs per day should not lead to mag of < 1.5 despite heavy supplementation. Also has borderline low K. Would recommend nephrology evaluation. Plan: - Minimize foods triggering diarrhea - Imodium 1-2 tabs in afternoon - Referral requested for nephrology 2. MAFLD cirrhosis MELD-Na 14 This was incidentally noted on imaging 10/2024. 2 MAFLD. Remaining w/up for chronic liver disease negative. EGD with [facility]. On coreg. Also due for HCC screening. Plan: - No HE or ascites on exam - Increase coreg to 6.25 mg BID. Pt to call with BP log in 3-4 days. - US Abd ordered - Low MELD - no indication for liver transplantation referral at this time - Avoid NSAIDs. Tylenol 2g/day is ok if needed for pain control 3. Gastric band appears to have slipped off based on imaging. This was placed originally in [place] > 10 years ago. Given the close proximity to varices, will refer to bariatrics for evaluation for removal as can risk eroding into and bleeding from varices. Plan: - Bariatrics surg referral placed. Follow up 3 months Orders: Orders US abdomen complete Today K74.60 - Unspecified cirrhosis of liver Ferritin Today K74.60 - Unspecified cirrhosis of liver Complete Blood Count Auto Diff Today K74.60 - Unspecified cirrhosis of liver Comprehensive Met. Panel Today K74.60 - Unspecified cirrhosis of liver Prothrombin Time INR Today K74.60 - Unspecified cirrhosis of liver Referrals Bariatric Surgery Referral Z98.84 - Bariatric surgery status Nephrology Referral E83.42 - Hypomagnesemia Medications: Changed From carvedilol must administer with a meal/food. HOLD for HR < 70 or systolic BP < 100. 3.125 mg PO BID 90 days 180 tabs 0RF To carvedilol must administer with a meal/food. HOLD for HR < 70 or systolic BP < 100. 6.25 mg PO BID 180 tabs 1RF 90 days Coding Level of Care Code Est Pt Level 5 (40146) Diagnoses Chronic diarrhea K52.9 Cirrhosis of liver K74.60 Varices, esophageal I85.00 Gastroesophageal reflux disease, unspecified whether esophagitis present K21.9 Esophagitis presence: esophagitis presence not specified Obesity (BMI 35.0-39.9 without comorbidity) E66.9 History of small bowel obstruction Z87.19 Persistent atrial fibrillation I48.19 History of laparoscopic adjustable gastric banding Z98.84 Hypomagnesemia E83.42
[2025-05-08 10:09] VITALS: BP 116/61; PULSE 101; BMI 34.0
--- OUTSIDE RECORDS SUMMARY | 2025-05-08 11:33 | XMS_ITS | Patient Health Record ---
Author Organization [facility] Address [address] [place] [address] Care Team Providers Care Customer Service Advocate Name Role Phone Juan M WADDELL, Molly Jensen Primary Care Provider Un available Black, Carli Unavailable [phone] Allergies No Known Allergies Reason For Referral No Information Medications Medication SIG (Take, Route, Frequency, Duration) Notes Start Date End Date Status [place] 3 1000 MG 1 capsule Orally Thr [...] Problem Acquired hammer toe of right foot (8300509450092863) Other hammer toe(s) (acquired), right foot (M20.41) Active confirmed Problem Acquired hammer toe of left foot (5149835888598045) Other hammer toe(s) (acquired), left foot (M20.42) Active confirmed Problem 774375364 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 confirmed Problem Bilateral atherosclerosis of arteries of lower limbs (disorder) (28788245305118123 ) Atherosclerosis of [place] artery of both lower extremities, with unspecified presence of clinical manifestation (I70.203) Active confirmed Encounters Encounter Location Date Provider Diagnosis [facility] [address] [address] 05/10/2024 Carli Jenkins Plan Of Treatment Pending Test Test Name Order Date 21928-WXYS SKIN LESIONS, 2 TO 4 01/26/20 24 [id number] DYSTROPHIC NAILS ANY # Insurance Providers Payer Name Payer Address Payer Phone Subscriber Number Group Number Insured Name Patient Relationship to Insured Coverage Start Date Coverage End Date Medicare National Govt Svcs Inc [address] [place] [address] [id number] Deidre To Self - patient is the insured AARP Secondary to Medicare [address] [place] [address] [id number] Deidre To Self - patient is the [...] left foot 1996 Hospitalization History Reason Date(Month/Year) [facility] [place] -3 day stay -fall 02/04
== END 2025-05-08 11:07 | disposition home or self-care (01) ==
LOC: HO.HGI 10:04
PROVIDERS: PCP Internal Medicine; Visit Provider Internal Medicine
DX: K74.60 Unspecified cirrhosis of liver (principal); I85.00 Esophageal varices without bleeding; K52.9 Noninfective gastroenteritis and colitis, unspecified; K21.9 Gastro-esophageal reflux disease without esophagitis; E66.9 Obesity, unspecified; Z87.19 Personal history of other diseases of the digestive system; I48.19 Other persistent atrial fibrillation; Z98.84 Bariatric surgery status; E83.42 Hypomagnesemia
CPT/HCPCS: 99214

== ENCOUNTER 2025-05-08 10:03 | Outpatient (REF) | payer MEDICARE, SELFPAY ==
[2025-05-08 13:32] LABS: MANUAL DIFF FLAG NO
[2025-05-08 13:35] LABS: Basophils Percent Auto 0.7 % (0-2); Eosinophils Absolute Auto 0.2 X10*3/uL (0.0-0.4); Eosinophils Percent Auto 5.4 % (0-4); Hematocrit 33.8 % (37.0-47.0); Hemoglobin 10.9 g/dl (12.0-16.0); Imm Gran Abs Auto 0.01 X10*3/uL (0.00-0.03); Imm Gran Pct Auto 0.2 % (0.0-0.4); Lymphocytes Absolute Auto 0.6 X10*3/uL (1.2-4.9); Lymphocytes Percent Auto 13.8 % (20-40); Mean Corpuscular HGB Conc 32.2 g/dl (31.0-35.0); Mean Corpuscular Hemoglobin 27.3 pg (27.0-33.0); Mean Corpuscular Volume 84.5 fL (80.0-98.0); Monocytes Absolute Auto 0.6 X10*3/uL (0.1-1.2); Monocytes Percent Auto 14.7 % (2-11); Neutrophils Absolute Auto 2.8 x10*3/uL (2.0-8.3); Neutrophils Percent Auto 65.2 % (45-73); Platelet Count 127 X10*3/uL (160-400); Red Cell Distribution Width 14.5 % (11.0-16.0); White Blood Count 4.3 X10*3/uL (4.8-10.8)
[2025-05-08 13:42] LABS: INTERNATIONAL NORM RATIO 1.7 (0.9-1.1); Prothrombin Time 19.2 SEC (10.9-12.4)
[2025-05-08 14:20] LABS: Ferritin 31 ng/mL (10-250)
[2025-05-08 14:25] LABS: Alanine Aminotransferase 18 U/L (0-31); Albumin Level 3.4 g/dL (3.5-5.0); Alkaline Phosphatase 211 U/L (39-117); Anion Gap 12 (12-20); Aspartate Amino Transferase 50 U/L (5-31); Blood Urea Nitrogen 6 mg/dL (9-16); Calcium 8.6 mg/dL (8.4-10.2); Carbon Dioxide 24 mmol/L (22-29); Chloride 104 mmol/L (96-108); Estimated Glomerular Filt Rate > 60; Glucose Random 101 mg/dL (60-115); Magnesium 1.4 mg/dL (1.6-2.6); Sodium 136 mmol/L (135-145)
== END 2025-05-08 10:04 | disposition home or self-care (01) ==
LOC: HO.HMGCLDS 10:03
PROVIDERS: PCP Internal Medicine; Referring Provider Internal Medicine; Visit Provider Internal Medicine
DX: E83.42 Hypomagnesemia (principal); K74.60 Unspecified cirrhosis of liver; K52.9 Noninfective gastroenteritis and colitis, unspecified; I85.00 Esophageal varices without bleeding; E66.9 Obesity, unspecified; Z87.19 Personal history of other diseases of the digestive system; I48.91 Unspecified atrial fibrillation; Z98.84 Bariatric surgery status
CPT/HCPCS: 36415; 80053; 82728; 83735; 85025; 85610; 99212

== ENCOUNTER 2025-05-23 11:09 | Outpatient (RCR) | payer MEDICARE, SELFPAY ==
[2025-05-23 11:16] VITALS: BP 147/67; PULSE 84; RESP 16; TEMP 37.3; O2SAT 97
[2025-05-23] MEDS: Magnesium Sulfate/H2O 2 GM/50 ML PIGGYBACK IV (11:31)
[2025-05-23 12:37] VITALS: BP 140/77; PULSE 91
[2025-05-23 13:11] VITALS: BP 146/94; PULSE 83
== END 2025-05-23 14:20 | disposition home or self-care (01) ==
LOC: HO.INF 11:09
PROVIDERS: Visit Provider Internal Medicine
DX: E83.42 Hypomagnesemia (principal)
CPT/HCPCS: 96365; 96366; J3475

== ENCOUNTER 2025-06-04 10:42 | Outpatient (REF) | payer MEDICARE, SELFPAY ==
--- OUTSIDE RECORDS SUMMARY | 2025-06-04 11:57 | XMS_ITS | Clinical Summary ---
Author Organization [facility] Address [address] [place] [address] Care Team Providers Care Medical Delivery Driver Name Role Phone Andrade Robles MD Primary Care Provider [phone] Allergies No known active allergies Medications Medication [...] ADULT PO) Take by mouth. 0 Active [place] 3 1000 MG CAPS Take by mouth. [...] 56 08/27/2019 11:07 AM EDT Temperature 36.7 C (98.1 F) 12/11/2018 12:22 PM EST Respiratory Rate 18 12/21/2018 1:40 [...] Screening (DEXA Scan) 2020 Influenza Vaccine (#1) 2025 RSV Adult > 60+ Yrs or Pregn ant (1 - 1-dose 75+ series) 2030 Hepatitis B Vaccines Aged Out No long er eligible based on patient's age to complete this topic RSV Ped < 20 months Aged Out No longe r eligible based on patient's age to complete this topic Medical Devices Implanted Type Area Deliverer Merchandise Device Identifier Shelf Expiration Date Model / Serial / Lot Device Angio-Seal Vip .035in 70cm 6fr [employer] - [id number] - [id number] Implanted:11/28 at [facility] and [facility] (Quantity not on file) [employer] [id number] / / Advance Directives For more information, please contact: [phone] Latest Code Status on File Code Status [...] way: discussion with patient . Care Teams Medical Delivery Driver Relationship Specialty Start Date End Date Andrade Robles MD PCP - General Cardiology 11/27/18
--- OUTSIDE RECORDS SUMMARY | 2025-06-04 11:57 | XMS_ITS | Patient Health Record ---
Author Organization [facility] Address [address] [place] [address] Care Team Providers Care Home Health Rn Name Role Phone Juan M WADDELL, Molly Jensen Primary Care Provider Un available Black, Carli Unavailable [phone] Allergies No Known Allergies Reason For Referral No Information Medications Medication SIG (Take, Route, Frequency, Duration) Notes Start Date End Date Status [place] 3 1000 MG 1 capsule Orally Thr [...] % 1 application Exte rnally Twice a day; Duration: 30 days Active Social History Tobacco Use: [...] Problem Acquired hammer toe of right foot (4189163284328680) Other hammer toe(s) (acquired), right foot (M20.41) Active confirmed Problem Acquired hammer toe of left foot (8312199443008413) Other hammer toe(s) (acquired), left foot (M20.42) Active confirmed Problem 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 (8479074) 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 confirmed Problem Bilateral atherosclerosis of arteries of lower limbs (disorder) (53399767871590542 ) Atherosclerosis of [place] artery of both lower extremities, with unspecified presence of clinical manifestation (I70.203) Active confirmed Plan Of Treatment Pending Test Test Name Order Date 96941-TGQP SKIN LESIONS, 2 TO 4 01/26/20 [id number] DYSTROPHIC NAILS ANY # Insurance Providers Payer Name Payer Address Payer Phone Subscriber Number Group Number Insured Name Patient Relationship to Insured Coverage Start Date Coverage End Date Medicare National Govt Svcs Inc [address] [place] [address] [id number] Deidre To Self - patient is the insured AARP Secondary to Medicare [address] [place] [address] [id number] Deidre To Self - patient is the [...] left foot 1996 Hospitalization History Reason Date(Month/Year) [facility] [place] 02/04
--- OUTSIDE RECORDS SUMMARY | 2025-06-04 11:57 | XMS_ITS | Clinical Summary ---
Author Organization [facility] Address [address] [place] [address] Care Team Providers Care Counter Professional Name Role Phone Andrade Robles MD Primary Care Provider [phone] Surgical History Surgery Date Site/Laterality Comments COLECTOMY PROCEDURE:COLECTOMY SALIVARY GLAND SURGERY PROCEDURE:SALIVARY GLAND SURGERY CERVICAL SPINE SURGERY PROCEDURE:CERVICAL SPINE SURGERY ORIF WRIST FRACTURE Left PROCEDURE:ORIF WRIST FRACTURE CORONARY ARTERY BYPASS GRAFT 11/30/2018 N/A PROCEDURE:CORONARY ARTERY BYPASS GRAFT;COMMENT:Procedure: CORONARY ARTERY BYPASS GRAFTING - ON PUMP; Surgeon: Humberto Fontana MD; Location: [facility]; Service: Cardiovascular; Laterality: N/A; OTHER SURGICAL HISTORY 11/30/2018 N/A PROCEDURE:TRANSESOPHAGEAL ECHOCARDIOGRAM (GRETEL) (CONTRAST/3D PRN);COMMENT:Procedure: TRANSESOPHAGEAL ECHOCARDIOGRAPHY; Surgeon: Humberto Fontana MD; Location: [facility]; Service: Cardiovascular; Laterality: N/A; CARDIAC CATHETERIZATION 11/28/2018 Right PROCEDURE:CARDIAC CATHETERIZATION;COMMENT:Proced ure: LEFT HEART CATHETERIZATION; Surgeon: Saman Ibarra MD; Location: [facility]; Service: Cardiology; Laterality: Right; Medical History [...] Vaccines (1 of 2) 2005 COVID-19 Vaccine (1 - 2023-2 5 season) 2024 Depression Screening 11/14/2024 Influenza Vaccine (#1) 2025 RSV Immunization Adult Patie nts (1 [...] this topic Medical Devices Implanted Type Area Director Of Quality Improvement Device Identifier Shelf Expiration Date Model / Serial / Lot Device Angio-Seal Vip .035in 70cm 6fr [employer] Guidewire - [id number] Implanted:11/28 (Quantity not on file) [facility] [id number] / / Care Teams Counter Professional Relationship Specialty Start Date End Date Andrade Robles MD [address] [place] [address] [id number] PCP - General Cardiology 11/27/18
--- OUTSIDE RECORDS SUMMARY | 2025-06-04 11:57 | XMS_ITS | Patient Health Record ---
Author Organization [facility] Address [address] [place] [address] Support Name Relationship Address Phone Deidre To Guarantor Unknown [phone] Reason For Referral No Information Plan Of Treatment No Information Insurance Providers Payer Name Payer Address Payer Phone Subscriber Number Group Number Insured Name Patient Relationship to Insured Coverage Start Date Coverage End Date Medicare [address] [address] [place] [address] [id number] Deidre To Self - patient is the insured Pre Op Covid Testing not for submission KHRIS cotto [id number] preop Deidre To Self - patient is the insured
[2025-06-04 14:30] LABS: Magnesium 1.4 mg/dL (1.6-2.6)
== END 2025-06-04 10:43 | disposition home or self-care (01) ==
LOC: HO.HMGCLDS 10:42
PROVIDERS: PCP Internal Medicine; Visit Provider Internal Medicine Gastroenterology
DX: I85.00 Esophageal varices without bleeding (principal)
CPT/HCPCS: 36415; 83735

== ENCOUNTER 2025-06-11 09:56 | Outpatient (REF) | payer MEDICARE, SELFPAY ==
--- NOTE | ~2025-06-11 | US_ITS ---
EXAMINATION: US ABDOMEN COMPLETE CLINICAL INFORMATION: Cirrhosis.. COMPARISON: Correlated to CT dated November 12, 2024. TECHNIQUE: Real-time ultrasound of the abdomen using grayscale and color Doppler technique. FINDINGS: PANCREAS: No peripancreatic fluid collections. Limited evaluation. ABDOMINAL AORTA: The proximal, mid, and distal segments are normal in caliber. INFERIOR VENA CAVA: Visualized portions are normal. LIVER: Liver measures 14 cm. Coarse echotexture. No gross solid or cystic lesion detected by the technologist. Main portal vein is patent with hepatopedal flow direction. No intrahepatic biliary ductal dilatation. GALLBLADDER: Absent/cholecystectomy. COMMON BILE DUCT: 11 mm. RIGHT KIDNEY: 12 cm. Normal echotexture. Normal renal cortical thickness. No hydronephrosis. No gross solid or cystic lesion.. LEFT KIDNEY: 11 cm. Normal renal cortical thickness. Echotexture. No hydronephrosis. No gross solid or cystic lesion detected. . SPLEEN: 14 cm. No gross lesion.. FREE FLUID: Small volume. US/US abdomen complete IMPRESSION: Splenomegaly. Small amount of ascites. Status post cholecystectomy. No focal hepatic mass. Inadequate evaluation of the liver. Electronically signed by: Filipe Berumen MD 06/11/2025 11:34 AM EDT
--- OUTSIDE RECORDS SUMMARY | 2025-06-11 10:36 | XMS_ITS | Clinical Summary ---
[facility] Address [address] [place] [address] Care Team Providers Care Market Consultant Name Role Phone Andrade Robles MD Primary Care Provider Surgical History Surgery Date Site/Laterality Comments COLECTOMY PROCEDURE:COLECTOMY SALIVARY GLAND SURGERY PROCEDURE:SALIVARY GLAND SURGERY CERVICAL SPINE SURGERY PROCEDURE:CERVICAL SPINE SURGERY ORIF WRIST FRACTURE Left PROCEDURE:ORIF WRIST FRACTURE CORONARY ARTERY BYPASS GRAFT 11/30/2018 N/A PROCEDURE:CORONARY ARTERY BYPASS GRAFT;COMMENT:Procedure: CORONARY ARTERY BYPASS GRAFTING - ON PUMP; Surgeon: Humberto Fontana MD; Location: [facility] CARDIAC OPERATING ROOM; Service: Cardiovascular; Laterality: N/A; OTHER SURGICAL HISTORY 11/30/2018 N/A PROCEDURE:TRANSESOPHAGEAL ECHOCARDIOGRAM (GRETEL) (CONTRAST/3D PRN);COMMENT:Procedure: TRANSESOPHAGEAL ECHOCARDIOGRAPHY; Surgeon: Humberto Fontana MD; Location: [facility] CARDIAC OPERATING ROOM; Service: Cardiovascular; Laterality: N/A; CARDIAC CATHETERIZATION 11/28/2018 Right PROCEDURE:CARDIAC CATHETERIZATION;COMMENT:Proced ure: LEFT HEART CATHETERIZATION; Surgeon: Saman Ibarra MD; Location: [facility] CARDIAC HOT WALKER; Service: Cardiology; Laterality: Right; Medical History Medical [...] this topic Medical Devices Implanted Type Area Golf Ball Cover Treater Device Identifier Shelf Expiration Date Model / Serial / Lot Device Angio-Seal Vip .035in 70cm 6fr Valuelink Guidewire - [id number] Implanted:11/28 (Quantity not on file) [facility] [id number] / / Care Teams Market Consultant Relationship Specialty Start Date End Date Andrade Robles MD [address] [place], [place] [address] [phone] PCP - General Cardiology 11/27/18
--- OUTSIDE RECORDS SUMMARY | 2025-06-11 10:36 | XMS_ITS | Patient Health Record ---
Author Organization [facility] Address [address] [place] [address] Care Team Providers Care Tariff Compiler Name Role Phone Juan M WADDELL, Molly Jensen Primary Care Provider Un available Black, Carli Unavailable [phone] Allergies No Known Allergies Reason For Referral No Information Medications Medication SIG (Take, Route, Frequency, Duration) Notes Start Date End Date Status [place] 3 1000 MG 1 capsule Orally Thr [...] Problem Acquired hammer toe of right foot (2142308508617980) Other hammer toe(s) (acquired), right foot (M20.41) Active confirmed Problem Acquired hammer toe of left foot (2942054722265196) Other hammer toe(s) (acquired), left foot (M20.42) Active confirmed Problem 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 (0560236) 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 confirmed Problem Bilateral atherosclerosis of arteries of lower limbs (disorder) (07295704037010187 ) Atherosclerosis of [place] artery of both lower extremities, with unspecified presence of clinical manifestation (I70.203) Active confirmed Plan Of Treatment Pending Test Test Name Order Date 18748-FMYF SKIN LESIONS, 2 TO 4 01/26/20 P5257-[id number] DYSTROPHIC NAILS ANY # Insurance Providers Payer Name Payer Address Payer Phone Subscriber Number Group Number Insured Name Patient Relationship to Insured Coverage Start Date Coverage End Date Medicare National Govt Svcs Inc [address] [place] [address] [id number] Deidre To Self - patient is the insured AARP Secondary to Medicare [address] [place] [address] [id number] Deidre To Self - patient is the [...] left foot 1996 Hospitalization History Reason Date(Month/Year) [facility] [place] -3 [place] stay -fall 02/04
--- OUTSIDE RECORDS SUMMARY | 2025-06-11 10:36 | XMS_ITS | Patient Health Record ---
Author Organization [facility] - So [facility] Address [address] [place] [address] Support Name Relationship Address Phone Deidre To Guarantor Unknown [phone] Reason For Referral No Information Plan Of Treatment No Information Insurance Providers Payer Name Payer Address Payer Phone Subscriber Number Group Number Insured Name Patient Relationship to Insured Coverage Start Date Coverage End Date Medicare [address] [address] [place] [address] [id number] Deidre To Self - patient is the insured Pre Op Covid Testing not for submission KHRIS cotto [id number] preop Deidre To Self - patient is the insured
--- OUTSIDE RECORDS SUMMARY | 2025-06-11 10:36 | XMS_ITS | Clinical Summary ---
Author Organization [facility] Address [address] [place] [address] Care Team Providers Care Community Development Coordinator Name Role Phone Andrade Robles MD Primary Care Provider [phone] Allergies No known active allergies Medications Medication [...] ADULT PO) Take by mouth. 0 Active [place] 3 1000 MG CAPS Take by mouth. [...] this topic Medical Devices Implanted Type Area Teletypesetter Monitor Device Identifier Shelf Expiration Date Model / Serial / Lot Device Angio-Seal Vip .035in 70cm 6fr Valuelink Guidewire - [id number] - [id number] Implanted:11/28 at [facility] [place] and [facility] (Quantity not on file) [facility] [id number] / / Advance Directives For more information, please contact: [phone] Latest Code Status on File Code Status [...] way: discussion with patient . Care Teams Community Development Coordinator Relationship Specialty Start Date End Date Andrade Robles MD PCP - General Cardiology 11/27/18
== END 2025-06-11 09:57 | disposition home or self-care (01) ==
LOC: HO.HMGCX 09:56
PROVIDERS: PCP Internal Medicine; Visit Provider Internal Medicine
DX: K74.60 Unspecified cirrhosis of liver (principal)
CPT/HCPCS: 76700

== ENCOUNTER → 2025-06-11 09:58 | Outpatient (BNV) | payer MEDICARE, SELFPAY | PROVIDERS: PCP Internal Medicine; Visit Provider Radiology Diagnostic Radiology | DX: R18.8 Other ascites (principal) | CPT/HCPCS: 76700 ==

== ENCOUNTER → 2025-06-17 10:15 | Outpatient (BNV) | payer MEDICARE, SELFPAY | PROVIDERS: PCP Internal Medicine; Visit Provider Internal Medicine | DX: Z12.31 Encounter for screening mammogram for malignant neoplasm of breast (principal) | CPT/HCPCS: 77063; 77067 ==

== ENCOUNTER 2025-06-17 10:32 | Outpatient (REF) | payer MEDICARE, SELFPAY ==
--- OUTSIDE RECORDS SUMMARY | 2025-06-17 11:17 | XMS_ITS | Patient Health Record ---
Author Organization [facility] Address [address] [place] [address] Support Name Relationship Address Phone Deidre To Guarantor Unknown [phone] Reason For Referral No Information Plan Of Treatment No Information Insurance Providers Payer Name Payer Address Payer Phone Subscriber Number Group Number Insured Name Patient Relationship to Insured Coverage Start Date Coverage End Date Medicare [address] [address] [place] [address] [id number] Deidre To Self - patient is the insured Pre Op Covid Testing not for submission KHRIS cotto [id number] preop Deidre To Self - patient is the insured
--- OUTSIDE RECORDS SUMMARY | 2025-06-17 11:17 | XMS_ITS | Patient Health Record ---
Author Organization [facility] Address [address] [place] [address] Care Team Providers Care Student Accounts Coordinator Name Role Phone Juan M WADDELL, Molly Jensen Primary Care Provider Un available Black, Carli Unavailable [phone] Allergies No Known Allergies Reason For Referral No Information Medications Medication SIG (Take, Route, Frequency, Duration) Notes Start Date End Date Status [place] 3 1000 MG 1 capsule Orally Thr [...] Problem Acquired hammer toe of right foot (2583058743273904) Other hammer toe(s) (acquired), right foot (M20.41) Active confirmed Problem Acquired hammer toe of left foot (5318516621304897) Other hammer toe(s) (acquired), left foot (M20.42) Active confirmed Problem 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 (8191196) 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 confirmed Problem Bilateral atherosclerosis of arteries of lower limbs (disorder) (61125907228876448 ) Atherosclerosis of [place] artery of both lower extremities, with unspecified presence of clinical manifestation (I70.203) Active confirmed Plan Of Treatment Pending Test Test Name Order Date 62088-FJER SKIN LESIONS, 2 TO 4 01/26/20 E0814-KERSFFZC DYSTROPHIC NAILS ANY # Insurance Providers Payer Name Payer Address Payer Phone Subscriber Number Group Number Insured Name Patient Relationship to Insured Coverage Start Date Coverage End Date Medicare National Govt Svcs Inc [address] [place] [address] [id number] Deidre To Self - patient is the insured AARP Secondary to Medicare [address] [place] [id number] Deidre To Self - patient is the [...] left foot 1996 Hospitalization History Reason Date(Month/Year) [facility] [place] [place]
--- OUTSIDE RECORDS SUMMARY | 2025-06-17 11:17 | XMS_ITS | Clinical Summary ---
Author Organization [facility] Address [address] [place] [address] Care Team Providers Care Jewel Hole Rough Opener Name Role Phone Andrade Robles MD Primary Care Provider [phone] Allergies No known active allergies Medications Medication [...] ADULT PO) Take by mouth. 0 Active [place] 3 1000 MG CAPS Take by mouth. [...] this topic Medical Devices Implanted Type Area Strip Feeder Device Identifier Shelf Expiration Date Model / Serial / Lot Device Angio-Seal Vip .035in 70cm 6fr Valuelink Guidewire - [id number] - [id number] Implanted:11/28 at [facility] [place] and [facility] (Quantity not on file) [facility] [id number] / / Advance Directives For more information, please contact: [phone] Latest Code Status on File Code Status [...] way: discussion with patient . Care Teams Jewel Hole Rough Opener Relationship Specialty Start Date End Date Andrade Robles MD PCP - General Cardiology 11/27/18
--- OUTSIDE RECORDS SUMMARY | 2025-06-17 11:17 | XMS_ITS | Clinical Summary ---
[facility] Address [address] [place] [address] Care Team Providers Care Diagnostic Assistant Name Role Phone Andrade Robles MD Primary Care Provider [phone] Surgical History Surgery Date Site/Laterality Comments COLECTOMY PROCEDURE:COLECTOMY SALIVARY GLAND SURGERY PROCEDURE:SALIVARY GLAND SURGERY CERVICAL SPINE SURGERY PROCEDURE:CERVICAL SPINE SURGERY ORIF WRIST FRACTURE Left PROCEDURE:ORIF WRIST FRACTURE CORONARY ARTERY BYPASS GRAFT 11/30/2018 N/A PROCEDURE:CORONARY ARTERY BYPASS GRAFT;COMMENT:Procedure: CORONARY ARTERY BYPASS GRAFTING - ON PUMP; Surgeon: Humberto Fontana MD; Location: [facility] CARDIAC OPERATING ROOM; Service: Cardiovascular; Laterality: N/A; OTHER SURGICAL HISTORY 11/30/2018 N/A PROCEDURE:TRANSESOPHAGEAL ECHOCARDIOGRAM (GRETEL) (CONTRAST/3D PRN);COMMENT:Procedure: TRANSESOPHAGEAL ECHOCARDIOGRAPHY; Surgeon: Humberto Fontana MD; Location: [facility] CARDI[facility]PERATING RO[facility]; Service: Cardiovascular; Laterality: N/A; CARDIAC CATHETERIZATION 11/28/2018 Right PROCEDURE:CARDIAC CATHETERIZATION;COMMENT:Proced ure: LEFT HEART CATHETERIZATION; Surgeon: Saman Ibarra MD; Location: [facility] CARDI[facility] LIME VAT TENDER; Service: Cardiology; Laterality: Right; Medical History Medical [...] this topic Medical Devices Implanted Type Area An Employee Sponsor Or Advocate And Device Identifier Shelf Expiration Date Model / Serial / Lot Device Angio-Seal Vip .035in 70cm 6fr Valuelink Guidewire - [id number] Implanted:11/28 (Quantity not on file) [facility] [id number] / / Care Teams Diagnostic Assistant Relationship Specialty Start Date End Date Andrade Robles MD [address] [place], [place] [address] [id number] PCP - General Cardiology 11/27/18
== END 2025-06-17 10:33 | disposition home or self-care (01) ==
LOC: HO.MAMMO 10:32
PROVIDERS: PCP Internal Medicine; Visit Provider Internal Medicine
DX: Z12.31 Encounter for screening mammogram for malignant neoplasm of breast (principal)
CPT/HCPCS: 77063; 77067

== ENCOUNTER 2025-06-19 10:48 | Outpatient (AMB) | payer MEDICARE, SELFPAY ==
--- NOTE | 2025-06-19 11:10 | MHC.OFFVISWM ---
VS Expanded 06/19/25 11:17 BP 141/73 H Blood Pressure Location Rt brachial Blood Pressure Position Sitting Pulse 93 Pulse Source Pulse Oximeter Temp 97.6 F Temperature Source Temporal Artery Scan Pulse Oximetry 95 Oxygen Delivery Method Room Air Height 5 ft Weight 171 lb 3.2 oz BMI 33.4 Body Fat % 27.4 Body Fat Mass 7.0 Fat Free Mass 124.2 Visceral Fat Rating 9.0 Body Water % 51.2 Body Water Mass 87.6 Muscle Mass/Score 118.0 Basal Metabolic Rate/Score 1,632 Intake Visit Reasons: (OV) SERVICE INSPECTOR Lapband Removal Allergies No Known Allergies Allergy (Verified 06/19/25 22:57) Medication List - Last Reconciled 06/19/25 by Dion Borrero MD acetaminophen 650 mg PO Q8H PRN albuterol sulfate 2.5 mg (3 mL) inhalation Q12H PRN ammonium lactate 12% 1 appl topical BID PRN atorvastatin 80 mg PO DAILY carbamazepine 200 mg PO TID carvedilol 6.25 mg PO BID 90 days cholecalciferol (vitamin D3) 50 mcg PO DAILY citalopram 40 mg PO DAILY lactobacillus combination no.4 (Probiotic) 3,000 mmu cells PO DAILY@0800 magnesium glycinate 200 mg (2 x 100 mg magnesium) PO DAILY midodrine 5 mg PO TID PRN multivitamin 1 tab PO DAILY nystatin 1 appl topical DAILY PRN omeprazole 20 mg PO DAILY 90 days ondansetron 8 mg translingual Q8H PRN potassium chloride ER (Klor-Con) 10 mEq PO DAILY quetiapine 100 mg PO BEDTIME rivaroxaban (Xarelto) 20 mg PO DAILY temazepam 15 mg PO BEDTIME HPI Comments Details: Patient was referred by Dr. Harden for prophylactic band removal as she has portal hypertension with esophageal and gastric varices and concern for bleeding due to erosion of the band into these vessels Tests reviewed: 06/07: abdominal US: coarse liver, small amount of ascites 05/08: UGI: patent GE junction, no esophageal dilation, no GERD/HH 11/06: CT abdomen/pelvis: band in good positions, enlarged vessels near the band 02/05: EGD, esophageal varices that were ligated and gastritis PFSH Medical History COPD (chronic obstructive pulmonary disease) C. difficile colitis History of small bowel obstruction Hx of colon cancer, stage III Bipolar 1 disorder CAD (coronary artery disease) Persistent atrial fibrillation Essential hypertension Hyperlipidemia Personal history of nicotine dependence Unsteady gait Thrombocytopenia Anemia Cervical radiculopathy due to degenerative joint disease of spine History of radius fracture Degenerative disc disease, cervical Acquired deafness of left ear Surgical History Status post coronary artery bypass graft History of coronary artery bypass graft x 2 (~2018) History of cardiac catheterization History of partial colectomy (~2015) History of reversal of ileostomy History of resection of small bowel (~2020) History of laparoscopic adjustable gastric banding (~2004) History of laparoscopic cholecystectomy (~2003) History of parotidectomy (~2014) History of cervical discectomy (~2013) History of surgery on right wrist History of colonoscopy History of esophagogastroduodenoscopy (EGD) History of appendectomy (~2003) History of tonsillectomy History of bunionectomy Family History Sister Substance use disorder Insulin dependent type 1 diabetes mellitus Mother Colon cancer Breast cancer Coronary artery disease High cholesterol Essential hypertension Father Heart disease Brother Heart disease Social History Household Members: None Housing: Apartment Are you a primary administrator health care facility to a significant other at home: No Do you presently have visiting nurse or other home services: No Unable to assess alcohol history related to: Unable to respond Alcohol intake: never Patient Tobacco Use Status: Former Tobacco user Tobacco use type: Cigarette Years Smoked: (former smoker - onset 30yo, 1ppd x 33yrs, 30pyh, quit 11/2018) e-Cigarette/Vaping Use: Never Used Second Hand Smoke Exposure: No Advance Directives Date on File: 03/02/24 service: No Current occupational status: retired Cognitive needs: No Hearing needs: No Vision needs: Yes Physical Exam Vital Signs: Last Vital Signs Temp 97.6 F 06/19/25 11:17 Pulse 93 06/19/25 11:17 BP 141/73 H 06/19/25 11:17 Pulse Ox 95 06/19/25 11:17 Oxygen Delivery Method Room Air 06/19/25 11:17 BMI result Body Mass Index 33.4 GI Inspection: Yes normal to inspection, Yes incision (well healed) and Yes obesity Palpation (GI): Soft to palpation Extrem Right lower extremity: edema Left lower extremity: edema Assessment & Plan Assessment & Plan (1) History of laparoscopic adjustable gastric banding: Onset Date: ~2004 Code(s): Z98.84 - Bariatric surgery status Category: Surgical Plan: 1. Extensive discussion with patient and son. My advice is not to remove the band or the port as the band seems to be in good position at recent UGI and CT. In addition, there is no stenosis at the GEJ suggestive of either no or little fluid in the band. Recent EGD did not reveal band erosion. Given her history of portal hypertension and varices, ascites cirrhotic liver and on chronic anticoagulation, the risks of the procedure outweigh the benefits at this time. Also I would not recommend removing the port only, as it bothers her, because it could introduce bacteria into the tube that could travel to the band and cause major infection. 2. Also recommended to check the band for any remaining fluid and remove it completely, so the band does not put any pressure to the stomach 3. Also recommended that she stays in the program so we can help her lose weight with lifestyle intervention and monitor more closely her diet habits and the band's status They will consider these suggestions and get back to me
[2025-06-19 11:17] VITALS: BP 141/73; PULSE 93; TEMP 36.4; O2SAT 95; BMI 33.4
--- OUTSIDE RECORDS SUMMARY | 2025-06-19 11:30 | XMS_ITS | Clinical Summary ---
Author Organization [facility] Address [address] [place] [address] Care Team Providers Care Thermal Technician Name Role Phone Andrade Robles MD Primary Care Provider [phone] Surgical History Surgery Date Site/Laterality Comments COLECTOMY PROCEDURE:COLECTOMY SALIVARY GLAND SURGERY PROCEDURE:SALIVARY GLAND SURGERY CERVICAL SPINE SURGERY PROCEDURE:CERVICAL SPINE SURGERY ORIF WRIST FRACTURE Left PROCEDURE:ORIF WRIST FRACTURE CORONARY ARTERY BYPASS GRAFT 11/30/2018 N/A PROCEDURE:CORONARY ARTERY BYPASS GRAFT;COMMENT:Procedure: CORONARY ARTERY BYPASS GRAFTING - ON PUMP; Surgeon: Humberto Fontana MD; Location: [facility] CARDIAC OPERATING ROOM; Service: Cardiovascular; Laterality: N/A; OTHER SURGICAL HISTORY 11/30/2018 N/A PROCEDURE:TRANSESOPHAGEAL ECHOCARDIOGRAM (GRETEL) (CONTRAST/3D PRN);COMMENT:Procedure: TRANSESOPHAGEAL ECHOCARDIOGRAPHY; Surgeon: Humberto Fontana MD; Location: [facility] CARDIAC OPERATING ROOM; Service: Cardiovascular; Laterality: N/A; CARDIAC CATHETERIZATION 11/28/2018 Right PROCEDURE:CARDIAC CATHETERIZATION;COMMENT:Proced ure: LEFT HEART CATHETERIZATION; Surgeon: Saman Ibarra MD; Location: [facility] CARDIAC NUCLEAR PHARMACIST; Service: Cardiology; Laterality: Right; Medical History Medical [...] this topic Medical Devices Implanted Type Area Remediation Technician Device Identifier Shelf Expiration Date Model / Serial / Lot Device Angio-Seal Vip .035in 70cm 6fr [employer] Guidewire - [id number] Implanted:11/28 (Quantity not on file) [facility] [id number] / / Care Teams Thermal Technician Relationship Specialty Start Date End Date Andrade Robles MD [address] [place], [place] [address] [phone] PCP - General Cardiology 11/27/18
--- OUTSIDE RECORDS SUMMARY | 2025-06-19 11:30 | XMS_ITS | Patient Health Record ---
Author Organization [facility] Address [address] [place] [address] Care Team Providers Care Tick Eradicator Name Role Phone Juan M WADDELL, Molly Jensen Primary Care Provider Un available Black, Carli Unavailable [phone] Allergies No Known Allergies Reason For Referral No Information Medications Medication SIG (Take, Route, Frequency, Duration) Notes Start Date End Date Status [place] 3 1000 MG 1 capsule Orally Thr [...] Problem Acquired hammer toe of right foot (7100841721971265) Other hammer toe(s) (acquired), right foot (M20.41) Active confirmed Problem Acquired hammer toe of left foot (2647784316090700) Other hammer toe(s) (acquired), left foot (M20.42) Active confirmed Problem 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 (6337615) 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 confirmed Problem Bilateral atherosclerosis of arteries of lower limbs (disorder) (45408395385863364 ) Atherosclerosis of [place] artery of both lower extremities, with unspecified presence of clinical manifestation (I70.203) Active confirmed Plan Of Treatment Pending Test Test Name Order Date 02106-AZPT SKIN LESIONS, 2 TO 4 01/26/20 L0421-[id number] DYSTROPHIC NAILS ANY # Insurance Providers Payer Name Payer Address Payer Phone Subscriber Number Group Number Insured Name Patient Relationship to Insured Coverage Start Date Coverage End Date Medicare National Govt Svcs Inc [address] [place] [address] [id number] Deidre To Self - patient is the insured AARP Secondary to Medicare [address] [place] [id number] Deidre To Self - patient is the [...] left foot 1996 Hospitalization History Reason Date(Month/Year) [facility] [place] -3 [place] stay -fall 02/04
--- OUTSIDE RECORDS SUMMARY | 2025-06-19 11:30 | XMS_ITS | Clinical Summary ---
Author Organization [facility] Address [address] [place] [address] Care Team Providers Care Registered Nurse Surgical Services Name Role Phone Andrade Robles MD Primary Care Provider [phone] Allergies No known active allergies Medications Medication [...] ADULT PO) Take by mouth. 0 Active [place] 3 1000 MG CAPS Take by mouth. [...] this topic Medical Devices Implanted Type Area Physical Testing Supervisor Device Identifier Shelf Expiration Date Model / Serial / Lot Device Angio-Seal Vip .035in 70cm 6fr [employer] Guidewire - [id number] - [id number] Implanted:11/28 at [facility] (Quantity not on file) [facility] [id number] / / Advance Directives For more information, please contact: [phone] Latest Code Status on File Code Status [...] way: discussion with patient . Care Teams Registered Nurse Surgical Services Relationship Specialty Start Date End Date Andrade Robles MD PCP - General Cardiology 11/27/18
--- OUTSIDE RECORDS SUMMARY | 2025-06-19 11:30 | XMS_ITS | Patient Health Record ---
Author Organization [facility] - [facility] Address [address] [place] [address] Support Name Relationship Address Phone Deidre To Guarantor Unknown [phone] Reason For Referral No Information Plan Of Treatment No Information Insurance Providers Payer Name Payer Address Payer Phone Subscriber Number Group Number Insured Name Patient Relationship to Insured Coverage Start Date Coverage End Date Medicare [address] [address] [place] [address] [id number] Deidre To Self - patient is the insured Pre Op Covid Testing not for submission KHRIS cotto [id number] preop Deidre To Self - patient is the insured
== END 2025-06-19 23:23 | disposition home or self-care (01) ==
LOC: HO.HBS 10:49
PROVIDERS: Visit Provider Surgery
DX: E66.9 Obesity, unspecified (principal); Z68.33 Body mass index [BMI] 33.0-33.9, adult; K95.09 Other complications of gastric band procedure; Z98.84 Bariatric surgery status
CPT/HCPCS: 99204

== ENCOUNTER → 2025-06-19 10:48 | Outpatient (BNVA) | payer MEDICARE, SELFPAY | PROVIDERS: Visit Provider Surgery | DX: Z98.84 Bariatric surgery status (principal) | CPT/HCPCS: 99202 ==

== ENCOUNTER 2025-06-25 10:33 | Outpatient (AMB) | payer MEDICARE, SELFPAY ==
--- NOTE | 2025-06-25 10:41 | HO.NEPHOV_ITS ---
Vital Signs 06/25/25 10:42 Height 5 ft Weight 171 lb BMI 33.4 BP 128/80 Blood Pressure Location Lt brachial Position Sitting Pulse 104 H Pulse Source Pulse Oximeter Pulse Oximetry (%) 96 Oxygen Delivery Method Room Air Intake Visit Reasons: INP: Hypomagnesemia/ Conf Database Administration Project Manager Required: No Accompanied by: Self / Same As Patient Allergies No Known Allergies Allergy (Verified 06/25/25 10:44) Medication List - Last Reconciled 06/25/25 by Harsh Valencia MD acetaminophen 650 mg PO Q8H PRN albuterol sulfate 2.5 mg (3 mL) inhalation Q12H PRN atorvastatin 80 mg PO DAILY carbamazepine 200 mg PO TID carvedilol 6.25 mg PO BID 90 days cholecalciferol (vitamin D3) 50 mcg PO DAILY citalopram 40 mg PO DAILY cyclobenzaprine 10 mg PO BEDTIME PRN lactobacillus combination no.4 (Probiotic) 3,000 mmu cells PO DAILY@0800 magnesium glycinate 200 mg (2 x 100 mg magnesium) PO DAILY multivitamin 1 tab PO DAILY nystatin 1 appl topical DAILY PRN omeprazole 20 mg PO DAILY 90 days ondansetron 8 mg translingual Q8H PRN quetiapine 100 mg PO BEDTIME rivaroxaban (Xarelto) 20 mg PO DAILY temazepam 15 mg PO BEDTIME HPI Comments Details: The patient is a 69-year-old female presenting with hypomagnesemia. Her magnesium levels have been persistently low for over a year, despite supplementation with magnesium glucinate and dietary intake of magnesium-rich foods. She has been on omeprazole for two months following an endoscopy The patient has a history of colon cancer, which led to bowel obstructions and required surgical intervention, including an ileostomy that was reversed six months later. She experiences diarrhea, which is managed with antidiarrheal medication, as diarrhea contributes to magnesium loss. The patient has a long-standing history of gastroesophageal reflux disease (GERD), managed with omeprazole. She also has portal hypertension, with enlarged portal veins noted during previous evaluations. The patient has experienced episodes of hypotension, for which she takes midodrine as needed. She denies any history of alcohol use or taking lithium or diuretics. [facility] Medical History COPD (chronic obstructive pulmonary disease) C. difficile colitis History of small bowel obstruction Hx of colon cancer, stage III Bipolar 1 disorder CAD (coronary artery disease) Persistent atrial fibrillation Essential hypertension Hyperlipidemia Personal history of nicotine dependence Unsteady gait Thrombocytopenia Anemia Cervical radiculopathy due to degenerative joint disease of spine History of radius fracture Degenerative disc disease, cervical Acquired deafness of left ear Surgical History Status post coronary artery bypass graft History of coronary artery bypass graft x 2 (~2018) History of cardiac catheterization History of partial colectomy (~2015) History of reversal of ileostomy History of resection of small bowel (~2020) History of laparoscopic adjustable gastric banding (~2004) History of laparoscopic cholecystectomy (~2003) History of parotidectomy (~2014) History of cervical discectomy (~2013) History of surgery on right wrist History of colonoscopy History of esophagogastroduodenoscopy (EGD) History of appendectomy (~2003) History of tonsillectomy History of bunionectomy Family History Sister Substance use disorder Insulin dependent type 1 diabetes mellitus Mother Colon cancer Breast cancer Coronary artery disease High cholesterol Essential hypertension Father Heart disease Brother Heart disease Social History Household Members: None Housing: Apartment Are you a primary home health care respiratory therapist to a significant other at home: No Do you presently have visiting nurse or other home services: No Unable to assess alcohol history related to: Unable to respond Alcohol intake: never Patient Tobacco Use Status: Former Tobacco user Tobacco use type: Cigarette Years Smoked: (former smoker - onset 30yo, 1ppd x 33yrs, 30pyh, quit 11/2018) e-Cigarette/Vaping Use: Never Used Second Hand Smoke Exposure: No Advance Directives Date on File: 03/02/24 service: No Current occupational status: retired Cognitive needs: No Hearing needs: No Vision needs: Yes Review of Systems Const Denies anorexia, Denies fever(s) and Denies weakness Eyes Denies blurry vision Card Denies no additional complaints and Denies dyspnea Resp Reports no additional complaints, Reports cough and Denies dyspnea GI Denies melena and Denies diarrhea Denies hematuria Musc Denies tingling Skin/Breast Denies rash Neuro Denies focal weakness, Denies tingling, Denies tremor(s) and Denies weakness Physical Exam Vital Signs: Last Vital Signs Pulse 104 H 06/25/25 10:42 BP 128/80 06/25/25 10:42 Pulse Ox 96 06/25/25 10:42 Oxygen Delivery Method Room Air 06/25/25 10:42 BMI result Body Mass Index 33.4 Results Reviewed Nephrology Results: Hgb, (12.0-16.0) 10.9 g/dl L 05/08/25 WBC, (4.8-10.8) 4.3 X10*3/uL L 05/08/25 Plt Count, (160-400) 127 X10*3/uL L Δ 05/08/25 Sodium, (135-145) 136 mmol/L 05/08/25 Potassium, (3.3-5.1) 4.0 mmol/L 05/08/25 Chloride, (96-108) 104 mmol/L 05/08/25 Carbon Dioxide, (22-29) 24 mmol/L 05/08/25 BUN, (9-16) 6 mg/dL L 05/08/25 Creatinine, (0.5-1.4) 0.67 mg/dL 05/08/25 Calcium, (8.4-10.2) 8.6 mg/dL 05/08/25 Assessment & Plan Assessment & Plan (1) Hypomagnesemia: Code(s): E83.42 - Hypomagnesemia Category: Medical (2) Essential hypertension: Code(s): I10 - Essential (primary) hypertension Category: Medical Plan 69-year-old woman with chronic mild hyponatremia. Deidre most likely has magnesium losses from GI tract from chronic diarrhea. The addition of omeprazole could also be another contributing factor. Recommendations Check 24 hour urine for or creatinine calcium and magnesium. Check intact PTH. Agree with magnesium glycinate. Can increase dose if needed to maintain magnesium level more than 1.5 mg. Continue with antidiarrheals and minimize diarrhea or we should in turn decrease magnesium losses. Further workup will be based on the outcome of the above baseline investigatio ns. Orders: Orders Creatinine, 24 Hr Group 1 Week E83.42 - Hypomagnesemia, I10 - Essential (primary) hypertension Sodium, 24Hr Urine Group 1 Week E83.42 - Hypomagnesemia, I10 - Essential (primary) hypertension Calcium, 24 Hr Ur 1 Week E83.42 - Hypomagnesemia, I10 - Essential (primary) hypertension Magnesium, 24Hr Urine 1 Week E83.42 - Hypomagnesemia, I10 - Essential (primary) hypertension Magnesium 1 Week E83.42 - Hypomagnesemia, I10 - Essential (primary) hypertension Parathyroid Hormone Intact 1 Week E83.42 - Hypomagnesemia, I10 - Essential (primary) hypertension Phosphorus 1 Week E83.42 - Hypomagnesemia, I10 - Essential (primary) hypertension UA and rflx microscopic 1 Week E83.42 - Hypomagnesemia, I10 - Essential (primary) hypertension Coding Level of Care Code New Pt Level 4 (29766) Diagnoses Hypomagnesemia E83.42 Essential hypertension I10
[2025-06-25 10:42] VITALS: BP 128/80; PULSE 104; O2SAT 96; BMI 33.4
--- OUTSIDE RECORDS SUMMARY | 2025-06-25 11:37 | XMS_ITS | Clinical Summary ---
[facility] Organization [facility] it Address [address] [place] [address] Care Team Providers Care Flight Control Manager Name Role Phone Andrade Robles MD Primary Care Provider [phone] Surgical History Surgery Date Site/Laterality Comments COLECTOMY PROCEDURE:COLECTOMY SALIVARY GLAND SURGERY PROCEDURE:SALIVARY GLAND SURGERY CERVICAL SPINE SURGERY PROCEDURE:CERVICAL SPINE SURGERY ORIF WRIST FRACTURE Left PROCEDURE:ORIF WRIST FRACTURE CORONARY ARTERY BYPASS GRAFT 11/30/2018 N/A PROCEDURE:CORONARY ARTERY BYPASS GRAFT;COMMENT:Procedure: CORONARY ARTERY BYPASS GRAFTING - ON PUMP; Surgeon: Humberto Fontana MD; Location: [facility]ARDI[facility] OPERATING RO[facility]; Service: Cardiovascular; Laterality: N/A; OTHER SURGICAL HISTORY 11/30/2018 N/A PROCEDURE:TRANSESOPHAGEAL ECHOCARDIOGRAM (GRETEL) (CONTRAST/3D PRN);COMMENT:Procedure: TRANSESOPHAGEAL ECHOCARDIOGRAPHY; Surgeon: Humberto Fontana MD; Location: [facility]PER[facility]; Service: Cardiovascular; Laterality: N/A; CARDIAC CATHETERIZATION 11/28/2018 Right PROCEDURE:CARDIAC CATHETERIZATION;COMMENT:Proced ure: LEFT HEART CATHETERIZATION; Surgeon: Saman Ibarra MD; Location: [facility]RICAL REPAIR[facility]; Service: Cardiology; Laterality: Right; Medical History Medical [...] this topic Medical Devices Implanted Type Area Dashboard Developer Device Identifier Shelf Expiration Date Model / Serial / Lot Device Angio-Seal Vip .035in 70cm 6fr [employer]uelink Guidewire - [id number] Implanted:11/28 (Quantity not on file) [facility] [id number] / / Care Teams Flight Control Manager Relationship Specialty Start Date End Date Andrade Robles MD [address] [place], [place] [address] [id number] PCP - General Cardiology 11/27/18
--- OUTSIDE RECORDS SUMMARY | 2025-06-25 11:37 | XMS_ITS | Clinical Summary ---
Author Organization [facility] Address [address] [place] [address] Care Team Providers Care Independent Trader Name Role Phone Andrade Robles MD Primary Care Provider [phone] Allergies No known active allergies Medications Medication [...] ADULT PO) Take by mouth. 0 Active [place] 3 1000 MG CAPS Take by mouth. [...] this topic Medical Devices Implanted Type Area Welding Machine Operator/Tender Device Identifier Shelf Expiration Date Model / Serial / Lot Device Angio-Seal Vip .035in 70cm 6fr [employer]uelink Guidewire - [id number] - [id number] Implanted:11/[address] [facility] and [facility] (Quantity not on file) [employer] [id number] / / Advance Directives For more information, please contact: [phone] Latest Code Status on File Code Status [...] way: discussion with patient . Care Teams Independent Trader Relationship Specialty Start Date End Date Andrade Robles MD PCP - General Cardiology 11/27/18
--- OUTSIDE RECORDS SUMMARY | 2025-06-25 11:37 | XMS_ITS | Patient Health Record ---
Author Organization [facility] Address [address] [place] [address] Care Team Providers Care Manager Camp Name Role Phone Juan M WADDELL, Molly Jensen Primary Care Provider Un available Black, Carli Unavailable [phone] Allergies No Known Allergies Reason For Referral No Information Medications Medication SIG (Take, Route, Frequency, Duration) Notes Start Date End Date Status Esopus 3 1000 MG 1 capsule Orally Thr [...] Problem Acquired hammer toe of right foot (6106544708687244) Other hammer toe(s) (acquired), right foot (M20.41) Active confirmed Problem Acquired hammer toe of left foot (6738943872883031) Other hammer toe(s) (acquired), left foot (M20.42) Active confirmed Problem 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 (0375168) 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 confirmed Problem Bilateral atherosclerosis of arteries of lower limbs (disorder) (15252412783631529 ) Atherosclerosis of [place] artery of both lower extremities, with unspecified presence of clinical manifestation (I70.203) Active confirmed Plan Of Treatment Pending Test Test Name Order Date [id number] SKIN LESIONS, 2 TO 4 01/26/20 [id number] DYSTROPHIC NAILS ANY # Insurance Providers Payer Name Payer Address Payer Phone Subscriber Number Group Number Insured Name Patient Relationship to Insured Coverage Start Date Coverage End Date Medicare National Govt Svcs Inc [address] [place] [address] [id number] Deidre To Self - patient is the insured AARP Secondary to Medicare [address] [place] [address] [id number] Deidre To Self - patient is the [...] left foot 1996 [place] History Reason Date(Month/Year[place] [facility] [place]
--- OUTSIDE RECORDS SUMMARY | 2025-06-25 11:37 | XMS_ITS | Patient Health Record ---
Author Organization [facility] Urgent Care - So [facility] Address [address] [place] [address] Support Name Relationship Address Phone Deidre To Guarantor Unknown [phone] Reason For Referral No Information Plan Of Treatment No Information Insurance Providers Payer Name Payer Address Payer Phone Subscriber Number Group Number Insured Name Patient Relationship to Insured Coverage Start Date Coverage End Date Medicare [address] [address] [place] [address] [id number] Deidre To Self - patient is the insured Pre Op Covid Testing not for submission KHRIS cotto [id number] preop Deidre To Self - patient is the insured
== END 2025-06-25 11:08 | disposition home or self-care (01) ==
LOC: HO.HKA 10:34
PROVIDERS: PCP Internal Medicine; Referring Provider Internal Medicine; Visit Provider Internal Medicine Hypertension Specialist
DX: E83.42 Hypomagnesemia (principal); I10 Essential (primary) hypertension
CPT/HCPCS: 99204

== ENCOUNTER → 2025-06-25 10:33 | Outpatient (BNVA) | payer MEDICARE, SELFPAY | PROVIDERS: PCP Internal Medicine; Referring Provider Internal Medicine; Visit Provider Internal Medicine Hypertension Specialist | DX: E83.42 Hypomagnesemia (principal); I10 Essential (primary) hypertension; K52.9 Noninfective gastroenteritis and colitis, unspecified; Z85.038 Personal history of other malignant neoplasm of large intestine; Z90.49 Acquired absence of other specified parts of digestive tract; K21.9 Gastro-esophageal reflux disease without esophagitis; Z79.899 Other long term (current) drug therapy; Z87.891 Personal history of nicotine dependence | CPT/HCPCS: 99202 ==

== ENCOUNTER 2025-06-27 10:18 | Outpatient (REF) | payer MEDICARE, SELFPAY ==
--- OUTSIDE RECORDS SUMMARY | 2025-06-27 11:05 | XMS_ITS | Clinical Summary ---
Author Organization [facility] Address [address] [place] [address] Care Team Providers Care Sugar Grinder Name Role Phone Andrade Robles MD Primary Care Provider [phone] Allergies No known active allergies Medications Medication [...] ADULT PO) Take by mouth. 0 Active [place] 3 1000 MG CAPS Take by mouth. [...] this topic Medical Devices Implanted Type Area Data Base Administrator Device Identifier Shelf Expiration Date Model / Serial / Lot Device Angio-Seal Vip .035in 70cm 6fr [employer]uelink Guidewire - [id number] - [id number] [place] [facility] [place] [facility] (Quantity not on file) [employer] [id number] / / Advance Directives For more information, please contact: [phone] Latest Code Status on File Code Status [...] way: discussion with patient . Care Teams Sugar Grinder Relationship Specialty Start Date End Date Andrade Robles MD PCP - General Cardiology 11/27/18
--- OUTSIDE RECORDS SUMMARY | 2025-06-27 11:05 | XMS_ITS | Clinical Summary ---
[facility] Organization [facility] Address [address] [place] [address] Care Team Providers Care Commodity Merchant Name Role Phone Andrade Robles MD Primary Care Provider [phone] Surgical History Surgery Date Site/Laterality Comments COLECTOMY PROCEDURE:COLECTOMY SALIVARY GLAND SURGERY PROCEDURE:SALIVARY GLAND SURGERY CERVICAL SPINE SURGERY PROCEDURE:CERVICAL SPINE SURGERY ORIF WRIST FRACTURE Left PROCEDURE:ORIF WRIST FRACTURE CORONARY ARTERY BYPASS GRAFT 11/30/2018 N/A PROCEDURE:CORONARY ARTERY BYPASS GRAFT;COMMENT:Procedure: CORONARY ARTERY BYPASS GRAFTING - ON PUMP; Surgeon: Humberto Fontana MD; Location: [facility]ARDIAC OPERATING ROOM; Service: Cardiovascular; Laterality: N/A; OTHER SURGICAL HISTORY 11/30/2018 N/A PROCEDURE:TRANSESOPHAGEAL ECHOCARDIOGRAM (GRETEL) (CONTRAST/3D PRN);COMMENT:Procedure: TRANSESOPHAGEAL ECHOCARDIOGRAPHY; Surgeon: Humberto Fontana MD; Location: [facility] OPER[facility] RO[facility]; Service: Cardiovascular; Laterality: N/A; CARDIAC CATHETERIZATION 11/28/2018 Right PROCEDURE:CARDIAC CATHETERIZATION;COMMENT:Proced ure: LEFT HEART CATHETERIZATION; Surgeon: Saman Ibarra MD; Location: [facility]ARD[facility]; Service: Cardiology; Laterality: Right; Medical History Medical [...] this topic Medical Devices Implanted Type Area Education Program Manager Device Identifier Shelf Expiration Date Model / Serial / Lot Device Angio-Seal Vip .035in 70cm 6fr [employer]uelink Guidewire - [id number] Implanted:11/28 (Quantity not on file) [facility] [id number] / / Care Teams Commodity Merchant Relationship Specialty Start Date End Date Andrade Robles MD [address] [place], [place] [address] [phone] PCP - General Cardiology 11/27/18
[2025-06-27 13:37] LABS: Magnesium 1.5 mg/dL (1.6-2.6)
[2025-06-27 14:02] LABS: Parathyroid Hormone Intact 76.7 pg/mL (8.7-77.1)
[2025-06-27 14:11] LABS: Creatinine, mg/dL 78.33
[2025-06-27 14:15] LABS: Creatinine, mg/dL 77.74; Sodium, 24 Hr Urine 101.0 mmol/L
[2025-06-27 14:25] LABS: Total Volume 24 Hour Urine 800 mL
[2025-06-27 14:26] LABS: Total Volume 24 Hour Urine 800 mL
[2025-06-29 18:53] LABS: Calcium/Creatinine Ratio 9 mg/g creat (30-275); Creatinine 24Hr Urine 0.66 g/24 h (0.50-2.15)
[2025-07-03 05:28] LABS: Creatinine, 24H Ur 0.65 g/24 h (0.50-2.15); Magnesium, 24H Urine 35 mg/24 h (18-130); Magnesium, Urine 24H/g Creat 54 mg/g creat (30-135); Total Volume 800 mL
== END 2025-06-27 10:19 | disposition home or self-care (01) ==
LOC: HO.HMGCLDS 10:18
PROVIDERS: PCP Internal Medicine; Visit Provider Internal Medicine Hypertension Specialist
DX: I10 Essential (primary) hypertension (principal); E83.42 Hypomagnesemia
CPT/HCPCS: 36415; 82340; 82570; 83735; 83970; 84100; 84300

== ENCOUNTER 2025-07-01 09:54 | Outpatient (REF) | payer MEDICARE, SELFPAY ==
--- OUTSIDE RECORDS SUMMARY | 2025-07-01 10:47 | XMS_ITS | Clinical Summary ---
Author Organization [facility] it Address [address] [place] [address] Care Team Providers Care Secretarial Teacher Name Role Phone Andrade Robles MD Primary Care Provider [phone] Surgical History Surgery Date Site/Laterality Comments COLECTOMY PROCEDURE:COLECTOMY SALIVARY GLAND SURGERY PROCEDURE:SALIVARY GLAND SURGERY CERVICAL SPINE SURGERY PROCEDURE:CERVICAL SPINE SURGERY ORIF WRIST FRACTURE Left PROCEDURE:ORIF WRIST FRACTURE CORONARY ARTERY BYPASS GRAFT 11/30/2018 N/A PROCEDURE:CORONARY ARTERY BYPASS GRAFT;COMMENT:Procedure: CORONARY ARTERY BYPASS GRAFTING - ON PUMP; Surgeon: Humberto Fontana MD; Location: [facility]ARDI[facility] OPERATING RO[facility]; Service: Cardiovascular; Laterality: N/A; OTHER SURGICAL HISTORY 11/30/2018 N/A PROCEDURE:TRANSESOPHAGEAL ECHOCARDIOGRAM (GRETEL) (CONTRAST/3D PRN);COMMENT:Procedure: TRANSESOPHAGEAL ECHOCARDIOGRAPHY; Surgeon: Humberto Fontana MD; Location: [facility]PERATING [facility]; Service: Cardiovascular; Laterality: N/A; CARDIAC CATHETERIZATION 11/28/2018 Right PROCEDURE:CARDIAC CATHETERIZATION;COMMENT:Proced ure: LEFT HEART CATHETERIZATION; Surgeon: Saman Ibarra MD; Location: [facility]ARDI[facility]; Service: Cardiology; Laterality: Right; Medical History Medical [...] this topic Medical Devices Implanted Type Area Monitor Technician Device Identifier Shelf Expiration Date Model / Serial / Lot Device Angio-Seal Vip .035in 70cm 6fr Valuelink Guidewire - [id number] Implanted:11/28 (Quantity not on file) [facility] [id number] / / Care Teams Secretarial Teacher Relationship Specialty Start Date End Date Andrade Robles MD [address] [place], [place] [address] [phone] PCP - General Cardiology 11/27/18
--- OUTSIDE RECORDS SUMMARY | 2025-07-01 10:47 | XMS_ITS | Patient Health Record ---
Author Organization [facility] Address [address] [place] [address] Care Team Providers Care Lumber Tying Machine Operator Name Role Phone Juan M WADDELL, Molly Jensen Primary Care Provider Un available Black, Carli Unavailable [phone] Allergies No Known Allergies Reason For Referral No Information Medications Medication SIG (Take, Route, Frequency, Duration) Notes Start Date End Date Status [place] 3 1000 MG 1 capsule Orally Thr [...] Problem Acquired hammer toe of right foot (5940609149704158) Other hammer toe(s) (acquired), right foot (M20.41) Active confirmed Problem Acquired hammer toe of left foot (1854571329609533) Other hammer toe(s) (acquired), left foot (M20.42) Active confirmed Problem 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 (2341885) 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 confirmed Problem Bilateral atherosclerosis of arteries of lower limbs (disorder) (00096073889238892 ) Atherosclerosis of [place] artery of both lower extremities, with unspecified presence of clinical manifestation (I70.203) Active confirmed Plan Of Treatment Pending Test Test Name Order Date [id number] SKIN LESIONS, 2 TO 4 01/26/20 [id number] DYSTROPHIC NAILS ANY # Insurance Providers Payer Name Payer Address Payer Phone Subscriber Number Group Number Insured Name Patient Relationship to Insured Coverage Start Date Coverage End Date Medicare National Govt Svcs Inc [address] [place] [address] [id number] Deidre To Self - patient is the insured AARP Secondary to Medicare [address] [place] [id number] Deidre To Self - patient is the [...] left foot 1996 Hospitalization History Reason Date(Month/Year) [facility] [place]
--- OUTSIDE RECORDS SUMMARY | 2025-07-01 10:47 | XMS_ITS | Patient Health Record ---
Author Organization [facility] Urgent Care - So [facility] Address [address] [place] [address] Support Name Relationship Address Phone Deidre To Guarantor Unknown [phone] Reason For Referral No Information Plan Of Treatment No Information Insurance Providers Payer Name Payer Address Payer Phone Subscriber Number Group Number Insured Name Patient Relationship to Insured Coverage Start Date Coverage End Date Medicare [address] [address] [place] [address] [id number] Deidre To Self - patient is the insured Pre Op Covid Testing not for submission KHRIS cotto [id number] preop Deidre To Self - patient is the insured
--- OUTSIDE RECORDS SUMMARY | 2025-07-01 10:47 | XMS_ITS | Clinical Summary ---
Author Organization [facility] Address [address] [place] [address] Care Team Providers Care Stereo Map Plotter Operator Name Role Phone Andrade Robles MD Primary Care Provider [phone] Allergies No known active allergies Medications Medication [...] ADULT PO) Take by mouth. 0 Active [place] 3 1000 MG CAPS Take by mouth. [...] this topic Medical Devices Implanted Type Area Ramp Service Employee Device Identifier Shelf Expiration Date Model / Serial / Lot Device Angio-Seal Vip .035in 70cm 6fr [employer] Guidewire - [id number] - [id number] [place] [facility] [place] [facility] [place]Quantity not on file[place] [employer] [id number] / / Advance Directives For more information, please contact: [phone] Latest Code Status on File Code Status [...] way: discussion with patient . Care Teams Stereo Map Plotter Operator Relationship Specialty Start Date End Date Andrade Robles MD PCP - General Cardiology 11/27/18
[2025-07-01 12:58] LABS: Appearance Urine Clear; Glucose Urine UA Negative (Negative); PH 5.5 (5.0-9.0); Specific Gravity - Urine 1.015 (1.005-1.025)
== END 2025-07-01 09:55 | disposition home or self-care (01) ==
LOC: HO.HMGCLDS 09:54
PROVIDERS: PCP Internal Medicine; Visit Provider Internal Medicine Hypertension Specialist
DX: E83.42 Hypomagnesemia (principal); I10 Essential (primary) hypertension
CPT/HCPCS: 81003

== ENCOUNTER 2025-07-02 11:11 | Outpatient (AMB) | payer MEDICARE, SELFPAY ==
[2025-07-02 11:16] VITALS: BP 142/80; PULSE 99; O2SAT 98; BMI 32.8
--- NOTE | 2025-07-02 11:16 | HO.NEPHOV_ITS ---
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 Required: No Accompanied by: Self / Same As Patient Allergies No Known Allergies Allergy (Verified 07/02/25 11:18) Medication List - Last Reconciled 07/02/25 by Harsh Valencia MD acetaminophen 650 mg PO Q8H PRN albuterol sulfate 2.5 mg (3 mL) inhalation Q12H PRN atorvastatin 80 mg PO DAILY calcium carbonate 500 mg PO DAILY carbamazepine 200 mg PO TID carvedilol 6.25 mg PO BID 90 days cholecalciferol (vitamin D3) 50 mcg PO DAILY citalopram 40 mg PO DAILY cyclobenzaprine 10 mg PO BEDTIME PRN lactobacillus combination no.4 (Probiotic) 3,000 mmu cells PO DAILY@0800 magnesium glycinate 200 mg (2 x 100 mg magnesium) PO DAILY multivitamin 1 tab PO DAILY nystatin 1 appl topical DAILY PRN omeprazole 20 mg PO DAILY 90 days ondansetron 8 mg translingual Q8H PRN quetiapine 100 mg PO BEDTIME rivaroxaban (Xarelto) 20 mg PO DAILY temazepam 15 mg PO BEDTIME HPI Comments Details: The patient is a 69-year-old female presenting with hypomagnesemia. Her magnesium levels have been persistently low for over a year, despite supplementation with magnesium glucinate and dietary intake of magnesium-rich f oods. She has been on omeprazole for two months following an endoscopy The patient has a history of colon cancer, which led to bowel obstructions and required surgical intervention, including an ileostomy that was reversed six months later. She experiences diarrhea, which is managed with antidiarrheal medication, as diarrhea contributes to magnesium loss. The patient has a long-standing history of gastroesophageal reflux disease (GERD), managed with omeprazole. She also has portal hypertension, with enlarged portal veins noted during previous evaluations. The patient has experienced episodes of hypotension, for which she takes midodrine as needed. She denies any history of alcohol use or taking lithium or diuretics. 07/02/2025. Overall she is doing well. No specific complaints today. Workup underway [facility] Medical History COPD (chronic obstructive pulmonary disease) C. difficile colitis History of small bowel obstruction Hx of colon cancer, stage III Bipolar 1 disorder CAD (coronary artery disease) Persistent atrial fibrillation Essential hypertension Hyperlipidemia Personal history of nicotine dependence Unsteady gait Thrombocytopenia Anemia Cervical radiculopathy due to degenerative joint disease of spine History of radius fracture Degenerative disc disease, cervical Acquired deafness of left ear Surgical History Status post coronary artery bypass graft History of coronary artery bypass graft x 2 (~2018) History of cardiac catheterization History of partial colectomy (~2015) History of reversal of ileostomy History of resection of small bowel (~2020) History of laparoscopic adjustable gastric banding (~2004) History of laparoscopic cholecystectomy (~2003) History of parotidectomy (~2014) History of cervical discectomy (~2013) History of surgery on right wrist History of colonoscopy History of esophagogastroduodenoscopy (EGD) History of appendectomy (~2003) History of tonsillectomy History of bunionectomy Family History Sister Substance use disorder Insulin dependent type 1 diabetes mellitus Mother Colon cancer Breast cancer Coronary artery disease High cholesterol Essential hypertension Father Heart disease Brother Heart disease Social History Household Members: None Housing: Apartment Are you a primary emergency care attendant to a significant other at home: No Do you presently have visiting nurse or other home services: No Unable to assess alcohol history related to: Unable to respond Alcohol intake: never Patient Tobacco Use Status: Former Tobacco user Tobacco use type: Cigarette Years Smoked: (former smoker - onset 30yo, 1ppd x 33yrs, 30pyh, quit 11/2018) e-Cigarette/Vaping Use: Never Used Second Hand Smoke Exposure: No Advance Directives Date on File: 03/02/24 service: No Current occupational status: retired Cognitive needs: No Hearing needs: No Vision needs: Yes Physical Exam Vital Signs: Last Vital Signs Pulse 99 07/02/25 11:16 BP 142/80 H 07/02/25 11:16 Pulse Ox 98 07/02/25 11:16 Oxygen Delivery Method Room Air 07/02/25 11:16 BMI result Body Mass Index 32.8 Comfortable Neck supple no JVD. Lungs entry equal no rales. Heart S1-S2 heard no gallop or rub. Abdomen soft nontender. Neuro alert awake oriented. No asterixis. Extremities no edema. Results Reviewed Nephrology Results: Phosphorus, (2.7-4.5) 3.3 mg/dL 06/27/25 PTH Intact, (8.7-77.1) 76.7 pg/mL 06/27/25 Urine Protein, (Neg-Trace) Negative mg/dL 07/01/25 Assessment & Plan Assessment & Plan (1) Hypomagnesemia: Code(s): E83.42 - Hypomagnesemia Category: Medical (2) Essential hypertension: Code(s): I10 - Essential (primary) hypertension Category: Medical Plan 69-year-old woman with chronic mild hyponatremia. Deidre most likely has magnesium losses from GI tract from chronic diarrhea. The addition of omeprazole could also be another contributing factor. Recommendations Check 24 hour urine for or creatinine calcium and magnesium. Check intact PTH. Agree with magnesium glycinate. Can increase dose if needed to maintain magnesium level more than 1.5 mg. Continue with antidiarrheals and minimize diarrhea or we should in turn decrease magnesium losses. Further workup will be based on the outcome of the above baseline investigations. 07/02/2025. She has significant hypocalciuria. Serum calcium is normal. Intact PTH was in the upper normal range. Recent serum magnesium is in the normal range of 1.5 with supplementation. 24 hour urine magnesium excretion still pending. Continue magnesium supplementation pending completion of workup. Orders: Orders Basic Metabolic Panel 2 Months E83.42 - Hypomagnesemia Magnesium 2 Months E83.42 - Hypomagnesemia Parathyroid Hormone Intact 2 Months E83.42 - Hypomagnesemia Phosphorus 2 Months E83.42 - Hypomagnesemia Medications: New calcium carbonate 500 mg PO DAILY 90 tabs 1RF Coding Level of Care Code Est Pt Level 4 (40155) Diagnoses Hypomagnesemia E83.42 Essential hypertension I10
--- OUTSIDE RECORDS SUMMARY | 2025-07-02 12:44 | XMS_ITS | Patient Health Record ---
Author Organization [facility] Address [address] [place] [address] Care Team Providers Care Band Master Name Role Phone Juan M WADDELL, Molly Jensen Primary Care Provider Un available Black, Carli Unavailable [phone] Allergies No Known Allergies Reason For Referral No Information Medications Medication SIG (Take, Route, Frequency, Duration) Notes Start Date End Date Status [place] 3 1000 MG 1 capsule Orally Thr [...] Problem Acquired hammer toe of right foot (2585308049810937) Other hammer toe(s) (acquired), right foot (M20.41) Active confirmed Problem Acquired hammer toe of left foot (0703251479723944) Other hammer toe(s) (acquired), left foot (M20.42) Active confirmed Problem 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 (0764735) 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 confirmed Problem Bilateral atherosclerosis of arteries of lower limbs (disorder) (42604649998725889 ) Atherosclerosis of [place] artery of both lower extremities, with unspecified presence of clinical manifestation (I70.203) Active confirmed Plan Of Treatment Pending Test Test Name Order Date 54572-HUAL SKIN LESIONS, 2 TO 4 01/26/20 [id number] DYSTROPHIC NAILS ANY # Insurance Providers Payer Name Payer Address Payer Phone Subscriber Number Group Number Insured Name Patient Relationship to Insured Coverage Start Date Coverage End Date Medicare National Govt Svcs Inc [address] [place] [address] [id number] Deidre To Self - patient is the insured AARP Secondary to Medicare [address] [place] [address] [id number] Deidre To Self - patient is the [...] left foot 1996 Hospitalization History Reason Date(Month/Year) [facility] [place] -fall 02/04
--- OUTSIDE RECORDS SUMMARY | 2025-07-02 12:44 | XMS_ITS | Clinical Summary ---
Author Organization [facility] Address [address] [place] [address] Care Team Providers Care Senior Partner Name Role Phone Andrade Robles MD Primary Care Provider [phone] Allergies No known active allergies Medications Medication [...] ADULT PO) Take by mouth. 0 Active [place] 3 1000 MG CAPS Take by mouth. [...] this topic Medical Devices Implanted Type Area Medical Insurance Claims Specialist Device Identifier Shelf Expiration Date Model / Serial / Lot Device Angio-Seal Vip .035in 70cm 6fr [employer] - [id number] - [id number] Implanted:11/28 at [facility] [place] [facility] (Quantity not on file) [employer] [id number] / / Advance Directives For more information, please contact: [phone] Latest Code Status on File Code Status [...] way: discussion with patient . Care Teams Senior Partner Relationship Specialty Start Date End Date Andrade Robles MD PCP - General Cardiology 11/27/18
--- OUTSIDE RECORDS SUMMARY | 2025-07-02 12:44 | XMS_ITS | Patient Health Record ---
Author Organization [facility] Urgent Care - So [facility] Address [address] [place] [address] Support Name Relationship Address Phone Deidre To Guarantor Unknown [phone] Reason For Referral No Information Plan Of Treatment No Information Insurance Providers Payer Name Payer Address Payer Phone Subscriber Number Group Number Insured Name Patient Relationship to Insured Coverage Start Date Coverage End Date Medicare [address] [address] [place] [address] [id number] Deidre To Self - patient is the insured Pre Op Covid Testing not for submission KHRIS cotto [id number] preop Deidre To Self - patient is the insured
--- OUTSIDE RECORDS SUMMARY | 2025-07-02 12:44 | XMS_ITS | Clinical Summary ---
Author Organization [facility] Address [address] [place] [address] Care Team Providers Care Washtub Worker Name Role Phone Andrade Robles MD Primary Care Provider [phone] Surgical History Surgery Date Site/Laterality Comments COLECTOMY [...] Location: [facility]; Service: Cardiology; Laterality: Right; Medical History Medical [...] this topic Medical Devices Implanted Type Area Air Conditioning Unit Tester Device Identifier Shelf Expiration Date Model / Serial / Lot Device Angio-Seal Vip .035in 70cm 6fr [employer] Guidewire - [id number] Implanted:11/28 (Quantity not on file) [facility] [id number] / / Care Teams Washtub Worker Relationship Specialty Start Date End Date Andrade Robles MD [address] [place], [place] [address] [id number] PCP - General Cardiology 11/27/18
== END 2025-07-02 11:32 | disposition home or self-care (01) ==
LOC: HO.HKA 11:12
PROVIDERS: PCP Internal Medicine; Visit Provider Internal Medicine Hypertension Specialist
DX: E83.42 Hypomagnesemia (principal); I10 Essential (primary) hypertension
CPT/HCPCS: 99214

== ENCOUNTER → 2025-07-02 11:11 | Outpatient (BNVA) | payer MEDICARE, SELFPAY | PROVIDERS: PCP Internal Medicine; Visit Provider Internal Medicine Hypertension Specialist | DX: E83.42 Hypomagnesemia (principal); I10 Essential (primary) hypertension; Z85.038 Personal history of other malignant neoplasm of large intestine; Z90.49 Acquired absence of other specified parts of digestive tract; Z87.891 Personal history of nicotine dependence | CPT/HCPCS: 99212 ==

== ENCOUNTER 2025-08-12 10:16 | Outpatient (AMB) | payer MEDICARE, SELFPAY ==
--- OUTSIDE RECORDS SUMMARY | 2024-05-10 04:15 | XMS_ITS ---
Author Organization [facility] Address [address] [place] [address] Care Team Providers Care Support Services Tech Name Role Phone Juan M WADDELL, Molly Jensen Primary Care Provider Un available Black, Carli Unavailable [phone] Encounters Encounter Location Date Provider Diagnosis [address] [address] 05/10/2024 Carli Black Plan Of Treatment No Information Progress Notes * Deidre LUNADOB: (69 yo F)Acc No.[id number]:05/10/2024 Progress Note Patient: Deidre CUELLAR Provider: Reza Jenkins DPM :1955 A ge:68 Y S ex:Female Date:05/10/2024 Address:[address] [place] [phone] Pcp:Sumanth Orozco Subjective: * Chief Complaints: * * Medical History: Objective: * Vitals: Assessment: Plan: * Treatment: * Images: * The named appointment provid er may or may not be the originator of this progress note, and it is not deemed complete until electronically signed by the appointment provider. Sign off status: Pending * Provider: Reza Jenkins DPM Date: 05/10/2024 Generated for Radhai david/Yasmeen/eTransmitting on: 0 08/12/2025 11:25 AM EDT
--- NOTE | 2025-08-12 10:19 | MHC.OFFVIS ---
Vital Signs 08/12/25 10:21 Height 5 ft Weight 165 lb 5.547 oz BMI 32.3 BP 129/79 Blood Pressure Location Lt brachial Position Sitting Pulse 107 H Intake Visit Reasons: 3m cirrhosis Intake Note: Deidre presents in the office as a 3 month for cirrhosis CC: states that when she had her EGD she had some vein banding and now she has a dry cough. Allergies No Known Allergies Allergy (Verified 07/02/25 11:18) HPI Comments Details: 68 y.o F with PMH of colon ca s/p partial colon resection with ileostomy (reversed), hx of CCY, hx of gastric band, cirrhosis, CAD s/p Pt reports main issue with alternating constipation and diarrhea x 2 years assoc with bloating and borborygmi. Pt also report post prandial urgency to have a BM. No blood in stool. Night time sx +. Last colo 2022 was BEFORE sx onset. Has also lost almost 50 lbs in this duration. Low appetite. Also avoids to eat due to fear of BM. Early satiety. Mother: CRC in 60s Most recent CT abd/pel done during 10/2024 [facility] admission also had following pertinent findings: Lap band device is again seen. This is looped along the gastroesophageal junction with port seen within the subcutaneous fat of the left midabdomen. Numerous collateral vessels are seen adjacent to the lap band device as before. Heterogeneous attenuation of the liver with mild periportal edema. Nodularity along the periphery of the liver. No discrete hepatic mass lesions identified. There is narrowing of the extrahepatic portal vein to the level of the portal confluence. There is focal dilation of the level of the portal confluence as seen previously. Splenic vein and superior mesenteric vein are patent. However, numerous collateral vessels are identified including gastric and esophageal varices. Diffuse mesenteric induration with small volume free fluid. Wall thickening of the colon, especially of the distal sigmoid colon and rectum. Suture material is seen at the rectosigmoid junction. Less pronounced colonic wall thickening in the more proximal colon. However, there is no areas of sparing of the colon. Distal small bowel is decompressed to the level of anastomotic sutures in the right hemipelvis with dilation of the small bowel proximal to this. Scattered mesenteric induration small volume free pelvic fluid. 02/05/25: EGD/colo 1. Esophageal varices (EVBLx1) 2. Gastritis (biopsy) 3. Duodenitis (biopsy) 4. Normal colon mucosa (biopsy) 5. Internal hemorrhoids Path: A. Duodenum, biopsy: Duodenal mucosa with preserved villi, hyperplastic Arvin's glands, and focal features of chronic/non-specific duodenitis. B. Gastric antrum, biopsy: Gastric antral mucosa with reactive changes, ectatic mucosal vessels with edema, and minimal chronic inactive inflammation; negative for H. pylori, intestinal metaplasia and dysplasia. C. Gastric cardia, biopsy: Gastric cardia mucosa with focal minimal chronic inactive inflammation; negative for H. pylori, intestinal metaplasia and dysplasia. D. Colon, right, biopsy: Colonic mucosa with lymphoid aggregates and focal ectatic vessels otherwise no specific change; no evidence of microscopic colitis. E. Colon, left, biopsy: Colonic mucosa with no specific change; no evidence of microscopic colitis. Barium swallow 04/2025: There is lap band at the GE junction with a widely patent gastroesophageal lumen. No gastroesophageal reflux or hiatal hernia seen. The esophagus is widely patent. The stomach is unremarkable. There is ventral plate and screws for fusion from C4 through C7 vertebrae without obstruction or narrowing. 05/08/25: Here for follow up after scopes and barium swallow. Main issue is diarrhea that occurs towards the end of the day. Small and large bowel bx normal. Pt doesnt think related to diet - but on questioning is on a lot of magnesium fortified foods to help with chronic hypomag and mag has a laxative effect. Reviewed that 1-2 loose BMs per day should not drop magnesium to this extent where shes not able to recover it to normal levels despite being on extra supplementation. Would recommend renal eval. In terms of cirrhosis, has been on coreg, has room to increase dose. Due for liver imaging which will be ordered today. No ascites or HE. I am also worried about the displaced lap band - sitting at GE junction juxtaposed with varices and at high risk of causing erosion into varices and bleeding. 08/12/25: Here for follow up. Has been seen by bariatric surgery- advised to not remove the lap band due to surgical risks assoc with the actual procedure itself in the context of cirrhosis. US reviewed - small amount of ascites. No clminically sig abd distention or weight gain. Will hold off diuretic theapy for now but pt advised to call us for any changes. Otherwise from GI standpoint doing well. Diarrhea is manageable with imodium. Has 1-2 formed BMs per day. Had ques about omeprazole and magnesium. Reviewed that omeprazole was added AFTER she already started having issues with hypomag so doubt thats the main etiology. [facility] Medical History COPD (chronic obstructive pulmonary disease) C. difficile colitis History of small bowel obstruction Hx of colon cancer, stage III Bipolar 1 disorder CAD (coronary artery disease) Persistent atrial fibrillation Essential hypertension Hyperlipidemia Personal history of nicotine dependence Unsteady gait Thrombocytopenia Anemia Cervical radiculopathy due to degenerative joint disease of spine History of radius fracture Degenerative disc disease, cervical Acquired deafness of left ear Surgical History Status post coronary artery bypass graft History of coronary artery bypass graft x 2 (~2018) History of cardiac catheterization History of partial colectomy (~2015) History of reversal of ileostomy History of resection of small bowel (~2020) History of laparoscopic adjustable gastric banding (~2004) History of laparoscopic cholecystectomy (~2003) History of parotidectomy (~2014) History of cervical discectomy (~2013) History of surgery on right wrist History of colonoscopy History of esophagogastroduodenoscopy (EGD) History of appendectomy (~2003) History of tonsillectomy History of bunionectomy Family History Sister Substance use disorder Insulin dependent type 1 diabetes mellitus Mother Colon cancer Breast cancer Coronary artery disease High cholesterol Essential hypertension Father Heart disease Brother Heart disease Social History Household Members: None Housing: Apartment Are you a primary care management coordinator to a significant other at home: No Do you presently have visiting nurse or other home services: No Alcohol intake: never Patient Tobacco Use Status: Former Tobacco user Tobacco use type: Cigarette Years Smoked: (former smoker - onset 30yo, 1ppd x 33yrs, 30pyh, quit 11/2018) e-Cigarette/Vaping Use: Never Used Second Hand Smoke Exposure: No Advance Directives Date on File: 03/02/24 service: No Current occupational status: retired Cognitive needs: No Hearing needs: No Vision needs: Yes Review of Systems Const All systems reviewed & are unremarkable except as noted in HPI and below Physical Exam Vital Signs: Last Vital Signs Pulse 107 H 08/12/25 10:21 BP 129/79 08/12/25 10:21 BMI result Body Mass Index 32.3 Assessment & Plan Assessment & Plan (1) Cirrhosis of liver: Code(s): K74.60 - Unspecified cirrhosis of liver Category: Medical (2) Chronic diarrhea: Code(s): K52.9 - Noninfective gastroenteritis and colitis, unspecified Category: Medical (3) Varices, esophageal: Code(s): I85.00 - Esophageal varices without bleeding Category: Medical (4) GERD (gastroesophageal reflux disease): Code(s): K21.9 - Gastro-esophageal reflux disease without esophagitis Category: Medical Qualifiers: Esophagitis presence: esophagitis presence not specified Qualified Code(s): K21.9 - Gastro-esophageal reflux disease without esophagitis (5) Obesity (BMI 35.0-39.9 without comorbidity): Code(s): E66.9 - Obesity, unspecified Category: Medical (6) History of small bowel obstruction: Code(s): Z87.19 - Personal history of other diseases of the digestive system Category: Medical (7) Persistent atrial fibrillation: Code(s): I48.19 - Other persistent atrial fibrillation Category: Medical (8) History of laparoscopic adjustable gastric banding: Onset Date: ~2004 Code(s): Z98.84 - Bariatric surgery status Category: Surgical (9) Hypomagnesemia: Code(s): E83.42 - Hypomagnesemia Category: Medical Plan 1. MAFLD cirrhosis MELD-Na 14 This was incidentally noted on imaging 10/2024. 2/2 MAFLD. Remaining w/up for chronic liver disease negative. EGD with [facility]. On coreg. Plan: - No HE or ascites on exam - Cont coreg to 6.25 mg BID. - US Abd due Nov 2025 - Daily or q2d weights at home. Pt to call office for weight gain of 5 lbs in 7 days to initiate diuretic therapy - Repeat MELD labs before next office visit - Avoid NSAIDs. Tylenol 2g/day is ok if needed for pain control 2. Diarrhea Likely due to dietary triggers and excessive Mag in diet and meds. Manageable with imodium for now. Pt again reminded to take additional imodium for >3 BMs oer day. 3. Gastric band evaluated by bariatric surgery. Considered high risk for removal. Pt also not interested in getting fluid removed from the band at this time. Follow up 4 months Orders: Orders US abdomen complete 4 Months K74.60 - Unspecified cirrhosis of liver Complete Blood Count Auto Diff 4 Months K74.60 - Unspecified cirrhosis of liver Comprehensive Met. Panel 4 Months K74.60 - Unspecified cirrhosis of liver Prothrombin Time INR 4 Months K74.60 - Unspecified cirrhosis of liver Patient Instructions: - Repeat ultrasound due in Nov 2025 - Cont carvedilol 6.25 mg twice a day - Weigh yourself at least 3-4 times a week. If you notice a weight gain for 5lbs in a week pls call our office. - Follow up in 4 months Coding Level of Care Code Est Pt Level 5 (67396) Complex EM visit Add On G2211 Diagnoses Cirrhosis of liver K74.60 Chronic diarrhea K52.9 Varices, esophageal I85.00 Gastroesophageal reflux disease, unspecified whether esophagitis present K21.9 Esophagitis presence: esophagitis presence not specified Obesity (BMI 35.0-39.9 without comorbidity) E66.9 History of small bowel obstruction Z87.19 Persistent atrial fibrillation I48.19 History of laparoscopic adjustable gastric banding Z98.84 Hypomagnesemia E83.42
[2025-08-12 10:21] VITALS: BP 129/79; PULSE 107; BMI 32.3
--- OUTSIDE RECORDS SUMMARY | 2025-08-12 11:26 | XMS_ITS | Clinical Summary ---
Author Organization [facility] Address [address] [place] [address] Care Team Providers Care Neurology Hospitalist Name Role Phone Andrade Robles MD Primary Care Provider [phone] Allergies No known active allergies Medications Medication [...] ADULT PO) Take by mouth. 0 Active [place] 3 1000 MG CAPS Take by mouth. [...] this topic Medical Devices Implanted Type Area Compounding Pharmacy Technician Device Identifier Shelf Expiration Date Model / Serial / Lot Device Angio-Seal Vip .035in 70cm 6fr [employer] - [id number] - [id number] [place] [facility] [place] [facility] (Quantity not on file) [employer] [id number] / / Advance Directives For more information, please contact: [phone] Latest Code Status on File Code Status [...] way: discussion with patient . Care Teams Neurology Hospitalist Relationship Specialty Start Date End Date Andrade Robles MD PCP - General Cardiology 11/27/18
--- OUTSIDE RECORDS SUMMARY | 2025-08-12 11:26 | XMS_ITS | Clinical Summary ---
Author Organization [facility] it Address [address] [place] [address] Care Team Providers Care News Videographer Name Role Phone Andrade Robles MD Primary Care Provider [phone] Surgical History Surgery Date Site/Laterality Comments COLECTOMY PROCEDURE:COLECTOMY SALIVARY GLAND SURGERY PROCEDURE:SALIVARY GLAND SURGERY CERVICAL SPINE SURGERY PROCEDURE:CERVICAL SPINE SURGERY ORIF WRIST FRACTURE Left PROCEDURE:ORIF WRIST FRACTURE CORONARY ARTERY BYPASS GRAFT 11/30/2018 N/A PROCEDURE:CORONARY ARTERY BYPASS GRAFT;COMMENT:Procedure: CORONARY ARTERY BYPASS GRAFTING - ON PUMP; Surgeon: Humberto Fontana MD; Location: [facility] CARDIAC OPERATING ROOM; Service: Cardiovascular; Laterality: N/A; OTHER SURGICAL HISTORY 11/30/2018 N/A PROCEDURE:TRANSESOPHAGEAL ECHOCARDIOGRAM (GRETEL) (CONTRAST/3D PRN);COMMENT:Procedure: TRANSESOPHAGEAL ECHOCARDIOGRAPHY; Surgeon: Humberto Fontana MD; Location: [facility] CARDIAC OPERATING ROOM; Service: Cardiovascular; Laterality: N/A; CARDIAC CATHETERIZATION 11/28/2018 Right PROCEDURE:CARDIAC CATHETERIZATION;COMMENT:Proced ure: LEFT HEART CATHETERIZATION; Surgeon: Saman Ibarra MD; Location: [facility]; Service: Cardiology; Laterality: Right; Medical History Medical [...] 2005 Zoster Vaccines (1 of 2) 2005 Depression Screening 11/14/2024 COVID-19 Vaccine (1 - 2023-2 5 season) 2025 Influenza Vaccine (#1) 2025 RSV Immunization Adult [...] this topic Medical Devices Implanted Type Area Scientific Specialist Device Identifier Shelf Expiration Date Model / Serial / Lot Device Angio-Seal Vip .035in 70cm 6fr [employer] Guidewire - [id number] Implanted:11/28 (Quantity not on file) [facility] [id number] / / Care Teams News Videographer Relationship Specialty Start Date End Date Andrade Robles MD [address] [place], [place] [address] [id number] PCP - General Cardiology 11/27/18
--- OUTSIDE RECORDS SUMMARY | 2025-08-12 11:26 | XMS_ITS | Patient Health Record ---
Author Organization [facility] Ur[facility] Care - So [facility] Address [address] [place] [address] Support Name Relationship Address Phone Deidre To Guarantor Unknown [phone] Reason For Referral No Information Plan Of Treatment No Information Insurance Providers Payer Name Payer Address Payer Phone Subscriber Number Group Number Insured Name Patient Relationship to Insured Coverage Start Date Coverage End Date Medicare [address] [address] [place] [address] [id number] Deidre To Self - patient is the insured Pre Op Covid Testing not for submission KHRIS cotto [id number] preop Deidre To Self - patient is the insured
--- OUTSIDE RECORDS SUMMARY | 2025-08-12 11:26 | XMS_ITS | Patient Health Record ---
Author Organization [facility] Address [address] [place] [address] Care Team Providers Care Fryer Operator Name Role Phone Juan M WADDELL, Molly Jensen Primary Care Provider Un available Black, Carli Unavailable [phone] Allergies No Known Allergies Reason For Referral No Information Medications Medication SIG (Take, Route, Frequency, Duration) Notes Start Date End Date Status [place] 3 1000 MG 1 capsule Orally Thr [...] Problem Acquired hammer toe of right foot (5705300744901306) Other hammer toe(s) (acquired), right foot (M20.41) Active confirmed Problem Acquired hammer toe of left foot (1918179618406209) Other hammer toe(s) (acquired), left foot (M20.42) Active confirmed Problem 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 (7548401) 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 confirmed Problem Bilateral atherosclerosis of arteries of lower limbs (disorder) (44714611296345204 ) Atherosclerosis of [place] artery of both lower extremities, with unspecified presence of clinical manifestation (I70.203) Active confirmed Plan Of Treatment Pending Test Test Name Order Date 54090-WSUG SKIN LESIONS, 2 TO 4 01/26/20 [id number] DYSTROPHIC NAILS ANY # Insurance Providers Payer Name Payer Address Payer Phone Subscriber Number Group Number Insured Name Patient Relationship to Insured Coverage Start Date Coverage End Date Medicare National Govt Svcs Inc [address] [place] [address] [id number] Deidre To Self - patient is the insured AARP Secondary to Medicare [address] [place] [address] [id number] Deidre To Self - patient is the [...] left foot 1996 Hospitalization History Reason Date(Month/Year) [facility] [place] -3 day stay -fall 02/04
== END 2025-08-12 11:09 | disposition home or self-care (01) ==
LOC: HO.HGI 10:17
PROVIDERS: PCP Internal Medicine; Visit Provider Internal Medicine
DX: K74.60 Unspecified cirrhosis of liver (principal); K52.9 Noninfective gastroenteritis and colitis, unspecified; I85.00 Esophageal varices without bleeding; K21.9 Gastro-esophageal reflux disease without esophagitis; E66.9 Obesity, unspecified; Z87.19 Personal history of other diseases of the digestive system; I48.19 Other persistent atrial fibrillation; Z98.84 Bariatric surgery status; E83.42 Hypomagnesemia
CPT/HCPCS: 99214; G2211

== ENCOUNTER → 2025-08-12 10:16 | Outpatient (BNVA) | payer MEDICARE, SELFPAY | PROVIDERS: PCP Internal Medicine; Visit Provider Internal Medicine | DX: K21.9 Gastro-esophageal reflux disease without esophagitis (principal); E66.9 Obesity, unspecified; Z87.19 Personal history of other diseases of the digestive system; I48.19 Other persistent atrial fibrillation; Z98.84 Bariatric surgery status; E83.42 Hypomagnesemia; K74.60 Unspecified cirrhosis of liver; K52.9 Noninfective gastroenteritis and colitis, unspecified; I85.00 Esophageal varices without bleeding | CPT/HCPCS: 99212 ==

== ENCOUNTER 2025-08-28 09:47 | Outpatient (REF) | payer MEDICARE, SELFPAY ==
--- OUTSIDE RECORDS SUMMARY | 2024-05-10 04:15 | XMS_ITS ---
Author Organization [facility] Address [address] [place] [address] Care Team Providers Care Graphic Specialist Name Role Phone Juan M WADDELL, Molly Jensen Primary Care Provider Un available Black, Carli Unavailable [phone] Encounters Encounter Location Date Provider Diagnosis [address] [address] 05/10/2024 Carli Black Plan Of Treatment No Information Progress Notes * Deidre LUNADOB: (69 yo F)Acc No.[id number]:05/10/2024 Progress Note Patient: Deidre CUELLAR Provider: Reza Jenkins DPM :1955 A ge:68 Y S ex:Female Date:05/10/2024 Address:[address] [place] [phone] Pcp:Sumanth Orozco Subjective: * Chief Complaints: * * Medical History: Objective: * Vitals: Assessment: Plan: * Treatment: * Images: * The named appointment provid er may or may not be the originator of this progress note, and it is not deemed complete until electronically signed by the appointment provider. Sign off status: Pending * Provider: Reza Jenkins DPM Date: 0 05/10/2024 Generated for Radhai david/Yasmeen/eTransmitting on: 1 11:16 AM EDT
--- OUTSIDE RECORDS SUMMARY | 2025-08-28 11:17 | XMS_ITS | Clinical Summary ---
Author Organization [facility] Address [address] [place] [address] Care Team Providers Care Event Marketing Representative Name Role Phone Andrade Robles MD Primary Care Provider [phone] Allergies No known active allergies Medications Medication [...] ADULT PO) Take by mouth. 0 Active [place] 3 1000 MG CAPS Take by mouth. [...] this topic Medical Devices Implanted Type Area Broomcorn Sorter Device Identifier Shelf Expiration Date Model / Serial / Lot Device Angio-Seal Vip .035in 70cm 6fr [employer] Guidewire - [id number] - [id number] Implanted:11/28 at [facility] and [facility] (Quantity not on file) [facility] [id number] / / Advance Directives For more information, please contact: [phone] Latest Code Status on File Code Status [...] way: discussion with patient . Care Teams Event Marketing Representative Relationship Specialty Start Date End Date Andrade Robles MD PCP - General Cardiology 11/27/18
--- OUTSIDE RECORDS SUMMARY | 2025-08-28 11:17 | XMS_ITS | Patient Health Record ---
Author Organization [facility] Address [address] [place] [address] Care Team Providers Care Nitroglycerin Supervisor Name Role Phone Juan M WADDELL, Molly Jensen Primary Care Provider Un available Black, Carli Unavailable [phone] Allergies No Known Allergies Reason For Referral No Information Medications Medication SIG (Take, Route, Frequency, Duration) Notes Start Date End Date Status [place] 3 1000 MG 1 capsule Orally Thr [...] Problem Acquired hammer toe of right foot (6299237640271284) Other hammer toe(s) (acquired), right foot (M20.41) Active confirmed Problem Acquired hammer toe of left foot (5772218593021191) Other hammer toe(s) (acquired), left foot (M20.42) Active confirmed Problem 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 (9233860) 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 confirmed Problem Bilateral atherosclerosis of arteries of lower limbs (disorder) (59310873067205166 ) Atherosclerosis of [place] artery of both lower extremities, with unspecified presence of clinical manifestation (I70.203) Active confirmed Plan Of Treatment Pending Test Test Name Order Date 30787-LPWD SKIN LESIONS, 2 TO 4 01/26/20 [id number] DYSTROPHIC NAILS ANY # Insurance Providers Payer Name Payer Address Payer Phone Subscriber Number Group Number Insured Name Patient Relationship to Insured Coverage Start Date Coverage End Date Medicare National Govt Svcs Inc [address] [place] [address] [id number] Deidre To Self - patient is the insured AARP Secondary to Medicare [address] [place] [id number] Deidre To Self - patient is the [...] Hospitalization History Reason Date(Month/Year) [facility] [place]
--- OUTSIDE RECORDS SUMMARY | 2025-08-28 11:17 | XMS_ITS | Clinical Summary ---
Author Organization [facility] Address [address] [place] [address] Care Team Providers Care Medical Art Therapist Name Role Phone Andrade Robles MD Primary Care Provider [phone] Surgical History Surgery Date Site/Laterality Comments COLECTOMY PROCEDURE:COLECTOMY SALIVARY GLAND SURGERY PROCEDURE:SALIVARY GLAND SURGERY CERVICAL SPINE SURGERY PROCEDURE:CERVICAL SPINE SURGERY ORIF WRIST FRACTURE Left PROCEDURE:ORIF WRIST FRACTURE CORONARY ARTERY BYPASS GRAFT 11/30/2018 N/A PROCEDURE:CORONARY ARTERY BYPASS GRAFT;COMMENT:Procedure: CORONARY ARTERY BYPASS GRAFTING - ON PUMP; Surgeon: Humberto Fontana MD; Location: [facility] CARDI[facility] OPERATING ROOM; Service: Cardiovascular; Laterality: N/A; OTHER SURGICAL HISTORY 11/30/2018 N/A PROCEDURE:TRANSESOPHAGEAL ECHOCARDIOGRAM (GRETEL) (CONTRAST/3D PRN);COMMENT:Procedure: TRANSESOPHAGEAL ECHOCARDIOGRAPHY; Surgeon: Humberto Fontana MD; Location: [facility] CARDIAC OPERATING ROOM; Service: Cardiovascular; Laterality: N/A; CARDIAC CATHETERIZATION 11/28/2018 Right PROCEDURE:CARDIAC CATHETERIZATION;COMMENT:Proced ure: LEFT HEART CATHETERIZATION; Surgeon: Saman Ibarra MD; Location: [facility] CARD[facility]; Service: Cardiology; Laterality: Right; Medical History Medical [...] this topic Medical Devices Implanted Type Area Real Estate Site Analyst Device Identifier Shelf Expiration Date Model / Serial / Lot Device Angio-Seal Vip .035in 70cm 6fr [employer] Guidewire - [id number] Implanted:11/28 (Quantity not on file) [facility] [id number] / / Care Teams Medical Art Therapist Relationship Specialty Start Date End Date Andrade Robles MD [address] [place], [place] [address] [phone] PCP - General Cardiology 11/27/18
--- OUTSIDE RECORDS SUMMARY | 2025-08-28 11:17 | XMS_ITS | Patient Health Record ---
Author Organization [facility] Urgent Care - So [facility] Address [address] [place] [address] Support Name Relationship Address Phone Deidre To Guarantor Unknown [phone] Reason For Referral No Information Plan Of Treatment No Information Insurance Providers Payer Name Payer Address Payer Phone Subscriber Number Group Number Insured Name Patient Relationship to Insured Coverage Start Date Coverage End Date Medicare [address] [address] [place] [address] [id number] Deidre To Self - patient is the insured Pre Op Covid Testing not for submission KHRIS cotto [id number] preop Deidre To Self - patient is the insured
[2025-08-28 13:59] LABS: Anion Gap 13 (12-20); Blood Urea Nitrogen 6 mg/dL (9-16); Calcium 8.4 mg/dL (8.4-10.2); Carbon Dioxide 25 mmol/L (22-29); Chloride 107 mmol/L (96-108); Estimated Glomerular Filt Rate > 60; Potassium 4.0 mmol/L (3.3-5.1); Sodium 141 mmol/L (135-145)
[2025-08-28 14:02] LABS: Parathyroid Hormone Intact 73.6 pg/mL (8.7-77.1)
[2025-08-28 14:06] LABS: Magnesium 1.3 mg/dL (1.6-2.6)
== END 2025-08-28 09:48 | disposition home or self-care (01) ==
LOC: HO.HMGCLDS 09:47
PROVIDERS: PCP Internal Medicine; Visit Provider Internal Medicine Hypertension Specialist
DX: E83.42 Hypomagnesemia (principal)
CPT/HCPCS: 36415; 80048; 83735; 83970; 84100

== ENCOUNTER 2025-09-04 11:05 | Outpatient (AMB) | payer MEDICARE, SELFPAY ==
--- OUTSIDE RECORDS SUMMARY | 2024-05-10 04:15 | XMS_ITS ---
Author Organization [facility] Address [address] [place] [phone] Care Team Providers Care Self Propelled Dredge Operator Name Role Phone Juan M WADDELL, Molly Jensen Primary Care Provider Un available Black, Carli Unavailable [phone] Encounters Encounter Location Date Provider Diagnosis [address] [address] 05/10/2024 Carli Black Plan Of Treatment No Information Progress Notes * Deidre LUNADOB: (69 yo F)Acc No.[id number]:05/10/2024 Progress Note Patient: Deidre CUELLAR Provider: Reza Jenkins DPM :1955 A ge:68 Y S ex:Female Date:05/10/2024 Address:[address] [place] [phone] Pcp:Sumanth Orozco Subjective: * Chief Complaints: * [...] 0 05/10/2024 Generated for Steve hernandez/Yasmeen/eTransmitting on: 5 02:58 PM EDT
--- NOTE | 2025-09-04 11:08 | AM.OFFVISMDC ---
Intake Vital Signs 09/04/25 11:13 Height 5 ft Weight 171 lb BMI 33.4 BP 120/72 Blood Pressure Location Lt brachial Position Sitting Respiration 16 Pulse 97 Pulse Source Pulse Oximeter Temp 97.8 F Temp Source Oral Pulse Oximetry (%) 98 Oxygen Delivery Method Room Air Intake Visit Reasons: SWV G0439 Intake Note: Pt is here today for her SWV [place] Erector Required: No Allergies No Known Allergies Allergy (Verified 09/04/25 11:14) Medication List - Last Reconciled 09/04/25 by Molly Mcgowan MD acetaminophen 650 mg PO Q8H PRN albuterol sulfate 2.5 mg (3 mL) inhalation Q12H PRN atorvastatin 80 mg PO DAILY calcium carbonate 500 mg PO DAILY carbamazepine 200 mg PO TID carvedilol 6.25 mg PO BID 90 days cholecalciferol (vitamin D3) 50 mcg PO DAILY citalopram 40 mg PO DAILY cyclobenzaprine 10 mg PO BEDTIME PRN lactobacillus combination no.4 (Probiotic) 3,000 mmu cells PO DAILY@0800 magnesium glycinate 200 mg (2 x 100 mg magnesium) PO DAILY multivitamin 1 tab PO DAILY nystatin 1 appl topical DAILY PRN omeprazole 20 mg PO DAILY 90 days ondansetron 8 mg translingual Q8H PRN quetiapine 100 mg PO BEDTIME rivaroxaban (Xarelto) 20 mg PO DAILY temazepam 15 mg PO BEDTIME HPI SWV G0439 HPI Details AWV ? 69 year old lady with past medical history significant for hyperlipidemia hypertension, coronary artery disease s/p CABG, persistent atrial fibrillation on anticoagulation with Xarelto, essential hypertension, chronic GERD, cervical degenerative disc disease, bilateral carotid artery stenosis and short bowel syndrome, presents for her ? Annual Wellness Visit, initial visit.? She is up-to-date with her screening mammogram and bone density scan done earlier this year showing normal results. She is up-to-date with her screening colonoscopy done 08/30/2020. Her fasting lipid panel and fasting blood sugar was checked earlier this year which came back with normal results. She is up-to-date with her flu vaccine, Tdap, pneumococcal vaccine Shingrix vaccine and COVID booster ? Medical / Social History Reviewed? Past Medical History ?Yes . ? [place] of Care / Care Team list updated ?Yes . ? Surgical/Hospitalization History ?Yes . ? Current Medications (including OTC and supplements) ?Yes . ? Family History ?Yes . ? Tobacco Control form ?Yes . ? AUDIT-C (Alcohol use) form ?Yes . ? Illicit drug use in Social History ?Yes . ? Current diagnosis of depression? ?No ? Appropriate PHQ2/PHQ9 completed ?Yes . ? Data entered by ?Php Lamp Developer and reviewed by provider ? Fall Risk ? Fall History? Have you had any falls with injury in the past year? ?No . ? Have you had two or more falls in the past year? ?No . ? Fall Risk Assessment: ?No falls in the past year . ? HRA filled out by the patient, reviewed by Provider and scanned. ?AWV ? Balance? Romberg ?positive ? Tandem walk ?unable. ? Walk and Turn ? with difficulty , uses a walker. ? Rise from sit to stand ?Yes . ?Vision? Corrective lens none ? Vision screen ? Up-to-date, has an appointment [employer] product design specialist ?Hearing? Whisper test ?fail, decreased hearing in left ear due to ruptured tympanic membrane ?Written Plan?Completed. See Patient Documents.? [facility] Medical History COPD (chronic obstructive pulmonary disease) C. difficile colitis History of small bowel obstruction Hx of colon cancer, stage III Bipolar 1 disorder CAD (coronary artery disease) Persistent atrial fibrillation Essential hypertension Hyperlipidemia Personal history of nicotine dependence Unsteady gait Thrombocytopenia Anemia Cervical radiculopathy due to degenerative joint disease of spine History of radius fracture Degenerative disc disease, cervical Acquired deafness of left ear Surgical History Status post coronary artery bypass graft History of coronary artery bypass graft x 2 (~2018) History of cardiac catheterization History of partial colectomy (~2015) History of reversal of ileostomy History of resection of small bowel (~2020) History of laparoscopic adjustable gastric banding (~2004) History of laparoscopic cholecystectomy (~2003) History of parotidectomy (~2014) History of cervical discectomy (~2013) History of surgery on right wrist History of colonoscopy History of esophagogastroduodenoscopy (EGD) History of appendectomy (~2003) History of tonsillectomy History of bunionectomy Family History Sister Substance use disorder Insulin dependent type 1 diabetes mellitus Mother Colon cancer Breast cancer Coronary artery disease High cholesterol Essential hypertension Father Heart disease Brother Heart disease Social History Household Members: None Housing: Apartment Are you a primary career coordinator to a significant other at home: No Do you presently have visiting nurse or other home services: No Alcohol intake: never Patient Tobacco Use Status: Former Tobacco user Tobacco use type: Cigarette Years Smoked: (former smoker - onset 30yo, 1ppd x 33yrs, 30pyh, quit 11/2018) e-Cigarette/Vaping Use: Never Used Second Hand Smoke Exposure: No Advance Directives Date on File: 03/02/24 service: No Current occupational status: retired Cognitive needs: No Hearing needs: No Vision needs: Yes Questionnaire Medicare Wellness Checkup What [age] What gender do you identify with?: female During the past 4 weeks, how much have you been bothered by emotional problems such as feeling anxious, depressed, irritable, sad or downhearted, and blue?: slightly During the past 4 weeks, has your physical & emotional health limited your social activities with family, friends, neighbors, or groups?: moderately During the past 4 weeks, how much bodily pain have you generally had?: very mild pain During the past 4 weeks, was someone available to help you if you needed & wanted help?: yes, as much as I wanted During the past 4 weeks, what was the hardest physical activity you could do for at least 2 minutes?: light Can you get to places out of walking distance without help? (For eg., can you travel alone on buses, taxis or drive your car?): Yes Can you go shopping for groceries or clothes without someone's help?: No Can you prepare your own meals?: Yes Can you do your housework without help?: Yes Because of any health problems, do you need the help of another person with your personal care needs such as eating, bathing, dressing or getting around the house?: No Can you handle your own money without help?: Yes During the past 4 weeks, how would you rate your health in general?: good During the past 4 weeks how have things been going for you?: good & bad parts about equal Are you having difficulties driving your car?: no Do you always fasten your seat belt when you are in a car?: yes, usually During past 4 weeks, have you been bothered by the following: never: Falling or dizzy when standing up, Sexual problems?, Trouble eating well? and Problems using the telephone?, seldom: Tiredness or fatigue? and sometimes: Teeth or denture problems? Have you fallen 2 or more times in the past year?: No Are you afraid of falling?: Yes Are you a smoker?: no During the past 4 weeks, how many drinks of wine, beer, or other alcoholic beverages did you have?: no alcohol at all Do you exercise for about 20 minutes 3 or more times a week?: no, I usually do not exercise this much Have you been given information to help with the following?: no: Hazards in your house that might hurt you? and no: Keeping track of your medications? How often do you have trouble taking medicines the way you have been told to take them?: I always take medicine as prescribed How confident are you that you can control & manage most of your health problems?: somewhat confident What is your race?: White Mini Mental State Exam (MMSE) Orientation What is the (year) (season) (date) (day) (month)?: year (2024), season (Fall), date (09/04/2025), day (Tuesday) and month (August) Where are we (state) (county) (town or city) (hospital) (floor)?: state ([place]), [facility] ([place]), town or city ([place]) and hospital/clinic ([facility]) Score Score: 9 Activity of Daily Living Bathing - sponge bath, tub bath or shower: receives no assistance (gets in/out by self, if usual bathing means Dressing - getting clothes from closets & drawers, including inner/outer garments & fasteners.: gets clothes & gets completely dressed without help Toileting - going to the 'toilet room' for urine/bowel elimination & cleaning self/arranging clothes: goes to toilet room, cleans self, arranges clothes without help Transfer: moves in & out of bed and chair without help (may use support object) Continence: has occasional 'accidents' Feeding: feeds self without help Total Score: 0 Using telephone: independent Traveling: independent Shopping: independent Preparing meals: independent Housework: needs assistance Taking medicine: independent Managing money: independent PHQ-9 Over the last 2 weeks, how often have you been bothered by any of the following problems? 1. Little interest or pleasure in doing things: several days 2. Feeling down, depressed, or hopeless: not at all 3. Trouble falling or staying asleep, or sleeping too much: not at all 4. Feeling tired or having little energy: not at all 5. Poor appetite or overeating: not at all 6. Feeling bad about yourself - or that you are a failure or have let yourself or your family down: not at all 7. Trouble concentrating on things, such as reading the newspaper or watching television: not at all 8. Moving or speaking so slowly that other people could have noticed. Or the opposite - being so fidgety or restless that you have been moving around a lot more than usual: not at all 9. Thoughts that you would be better off or of hurting yourself in some way: not at all Total score: 1 Depression Screening Interpretation: Negative Depression Screening Done: Yes 96792 - PHQ-9 Billing: Yes Source: Developed by Drs. Philipp Najera, Nga Sage, Benjamin Berman and colleagues, with an educational ashli from [employer]. Physical Exam Vital Signs: Last Vital Signs Temp 97.8 F 09/04/25 11:13 Pulse 97 09/04/25 11:13 Resp 16 09/04/25 11:13 BP 120/72 09/04/25 11:13 Pulse Ox 98 09/04/25 11:13 Oxygen Delivery Method Room Air 09/04/25 11:13 BMI result Body Mass Index 33.4 Results Reviewed Results Reviewed: Name: Deidre To Age/Sex: 69/F : 1955 Unit#: [id number] Attend Dr: Molly Mcgowan MD Re03/28/25 Status: DEP REF [facility] Disch: SPEC : [id number] PABLITO: 03/28/25 STATUS: COMP REQ : [id number] RECD: 03/28/[address]: Molly Mcgowan MD COMP: 03/28/25 ENTERED: 03/28/25-[address]: ORDERED: Met Prof Fast, MG, AST, ALT, Lipid Panel Test Result Flag Reference Sodium 137 135-145 mmol/L Potassium 3.8 3.3-5.1 mmol/L CL 107 96-108 mmol/L CO2 21 L 22-29 mmol/L Gap 13 12-20 BUN 10 9-16 mg/dL Creat 0.69 0.5-1.4 mg/dL eGFR > 60 Chronic Kidney Disease: Estimated GFR < 60 mL/min/1.73m2 Severe Kidney Disease: Estimated GFR < 15 mL/min/1.73m2 FBS 98 60-99 mg/dL CA 8.4 8.4-10.2 mg/dL Magnesium 1.4 *L 1.6-2.6 mg/dL Critical value for MAG: Results called to and read back by: HEVER Person calling: CINDI Date: 03/28/25 Time: 1356 AST (GOT) 45 H 5-31 U/L ALT (GPT) 17 0-31 U/L Triglyceride 58 <150 mg/dL Desirable Triglyceride: less than 150 mg/dL Borderline High Triglyceride 150-199 mg/dL High Triglyceride: 200-499 mg/dL Very High Triglyceride: greater than or equal to 5OO mg/dL Cholesterol 106 <200 mg/dL Desirable Cholesterol: less than 200 mg/dL Borderline High Cholesterol: 200-239 mg/dL High Cholesterol: greater than 239 mg/dL LDL Calculated 51 <100 mg/dL Desirable LDL: less than 100 mg/dL Near Optimal/Above Optimal LDL: 110-129 mg/dL Borderline High LDL: 130-159 mg/dL High LDL: 160-189 mg/dL Very High LDL: greater than or equal to 190 mg/dL HDL 44 >40 mg/dL Desirable HDL: greater than 40 mg/dL Note: This HDL assay may give artificially low results in patients with liver disease. Assessment & Plan Assessment & Plan (1) Encounter for initial annual wellness visit (AWV) in Medicare patient: Code(s): Z00.00 - Encounter for general adult medical examination without abnormal findings Plan: Medical wellness checklist reviewed, discussed with patient and updated. Advanced directives are already in place. Reviewed latest lab results with patient.. Up-to-date with all her vaccines and breast cancer screening, colon cancer screening and osteoporosis screening (2) COPD (chronic obstructive pulmonary disease): Code(s): J44.9 - Chronic obstructive pulmonary disease, unspecified Qualifiers: COPD type: unspecified COPD Qualified Code(s): J44.9 - Chronic obstructive pulmonary disease, unspecified Plan: Currently on albuterol inhaler used as needed and given prescription for ipratropium-albuterol 0.5 mg-3 mg per 3 mL, to use by nebulizer to help with loosening phlegm in airway, to use twice a day as needed (3) Degenerative disc disease, cervical: Code(s): M50.30 - Other cervical disc degeneration, unspecified cervical region Plan: Taking acetaminophen 650 mg every 8 hours as needed for pain control, and takes cyclobenzaprine 10 mg at bedtime as needed for painful muscle spasms (4) Anemia: Comment: Most recent hemoglobin 12.3 and HCT is 36.2 Code(s): D64.9 - Anemia, unspecified Qualifiers: Anemia type: unspecified type Qualified Code(s): D64.9 - Anemia, unspecified Plan: Currently followed by GI clinic (5) Hypomagnesemia: Code(s): E83.42 - Hypomagnesemia Plan: Currently on magnesium glycinate, advised to cut back on taking this and instead increase dietary magnesium, as tablets is making her diarrhea worse. (6) Chronic diarrhea: Code(s): K52.9 - Noninfective gastroenteritis and colitis, unspecified Plan: Take Imodium as needed for episodes of loose bowel movements (7) GERD (gastroesophageal reflux disease): Code(s): K21.9 - Gastro-esophageal reflux disease without esophagitis Qualifiers: Esophagitis presence: esophagitis presence not specified Qualified Code(s): K21.9 - Gastro-esophageal reflux disease without esophagitis Plan: Currently on omeprazole 20 mg daily (8) Hyperlipidemia: Comment: Patient is currently taking 80 mg atorvastatin. Code(s): E78.5 - Hyperlipidemia, unspecified Qualifiers: Hyperlipidemia type: unspecified Qualified Code(s): E78.5 - Hyperlipidemia, unspecified Plan: Lipids are within normal limits, continue with atorvastatin 80 mg daily (9) Persistent atrial fibrillation: Code(s): I48.19 - Other persistent atrial fibrillation Plan: Currently on Xarelto 20 mg daily (10) Bilateral carotid artery stenosis: Code(s): I65.23 - Occlusion and stenosis of bilateral carotid arteries Plan: On Xarelto followed by cardiology (11) Essential hypertension: Code(s): I10 - Essential (primary) hypertension Plan: Currently taking carvedilol 6.25 mg 1 tablet twice a day (12) Bipolar 1 disorder: Code(s): F31.9 - Bipolar disorder, unspecified Plan: Currently taking citalopram 40 mg daily and quetiapine 100 mg at bedtime as well as temazepam 15 mg at bedtime, followed by psychiatry Medications: New ipratropium-albuterol 0.5 mg-3 mg(2.5 mg base)/3 mL 3 mL inhalation BID PRN 90 mL 0RF wheezing J44.9 - Chronic obstructive pulmonary disease, unspecified albuterol sulfate 90 mcg/actuation (Ventolin HFA) 2 puffs inhalation Q6H PRN 8.5 grams 1RF shortness of breath or wheezing Quality Reporting (2019) Depression/Bipolar (159/160/161/177) PHQ-9: Total score: 1 Coding Level of Care Code Medicare First (G0438) Diagnoses Encounter for initial annual wellness visit (AWV) in Medicare patient Z00.00 Chronic obstructive pulmonary disease, unspecified COPD type J44.9 COPD type: unspecified COPD Degenerative disc disease, cervical M50.30 Anemia, unspecified type D64.9 Anemia type: unspecified type Hypomagnesemia E83.42 Chronic diarrhea K52.9 Gastroesophageal reflux disease, unspecified whether esophagitis present K21.9 Esophagitis presence: esophagitis presence not specified Hyperlipidemia, unspecified hyperlipidemia type E78.5 Hyperlipidemia type: unspecified Persistent atrial fibrillation I48.19 Bilateral carotid artery stenosis I65.23 Essential hypertension I10 Bipolar 1 disorder F31.9 CPT Codes Advance Care Planning - Advance Care Planning discussion: On file, no changes ([id number]) Advance Care Planning - Time spent: 1-15 minutes, on File ([id number]) Additional Codes PHQ-9 - 61937 - PHQ-9 Billing: Yes ([id number]) Advance Care Planning Advance Care Planning discussion: On file, no changes Date of discussion: 09/09/25 Who was present: Patient Forms completed: Health Care Proxy and MOLST Time spent: 1-15 minutes, on File Actual minutes spent: 1
[2025-09-04 11:13] VITALS: BP 120/72; PULSE 97; RESP 16; TEMP 36.6; O2SAT 98; BMI 33.4
--- OUTSIDE RECORDS SUMMARY | 2025-09-04 14:59 | XMS_ITS | Patient Health Record ---
Author Organization [facility] Urgent Care - So [facility] Address [address] [place] [address] Support Name Relationship Address Phone Deidre To Guarantor Unknown [phone] Reason For Referral No Information Plan Of Treatment No Information Insurance Providers Payer Name Payer Address Payer Phone Subscriber Number Group Number Insured Name Patient Relationship to Insured Coverage Start Date Coverage End Date Medicare [address] [address] [place] [address] [id number] Deidre To Self - patient is the insured Pre Op Covid Testing not for submission KHRIS cotto [id number] preop Deidre To Self - patient is the insured
--- OUTSIDE RECORDS SUMMARY | 2025-09-04 14:59 | XMS_ITS | Clinical Summary ---
Author Organization [facility] Address [address] [place] [address] Care Team Providers Care Green Building Energy Engineer Name Role Phone Andrade Robles MD Primary Care Provider [phone] Surgical History Surgery Date Site/Laterality Comments COLECTOMY PROCEDURE:COLECTOMY SALIVARY GLAND SURGERY PROCEDURE:SALIVARY GLAND SURGERY CERVICAL SPINE SURGERY PROCEDURE:CERVICAL SPINE SURGERY ORIF WRIST FRACTURE Left PROCEDURE:ORIF WRIST FRACTURE CORONARY ARTERY BYPASS GRAFT 11/30/2018 N/A PROCEDURE:CORONARY ARTERY BYPASS GRAFT;COMMENT:Procedure: CORONARY ARTERY BYPASS GRAFTING - ON PUMP; Surgeon: Humberto Fontana MD; Location: [facility]ARD[facility] OPERATING RO[facility]; Service: Cardiovascular; Laterality: N/A; OTHER SURGICAL HISTORY 11/30/2018 N/A PROCEDURE:TRANSESOPHAGEAL ECHOCARDIOGRAM (GRETEL) (CONTRAST/3D PRN);COMMENT:Procedure: TRANSESOPHAGEAL ECHOCARDIOGRAPHY; Surgeon: Humberto Fontana MD; Location: [facility]PERATING [facility]; Service: Cardiovascular; Laterality: N/A; CARDIAC CATHETERIZATION 11/28/2018 Right PROCEDURE:CARDIAC CATHETERIZATION;COMMENT:Proced ure: LEFT HEART CATHETERIZATION; Surgeon: Saman Ibarra MD; Location: [facility] CARDI[facility] DRILL OPERATOR AUTOMATIC; Service: Cardiology; Laterality: Right; Medical History Medical [...] this topic Medical Devices Implanted Type Area Skid Man Device Identifier Shelf Expiration Date Model / Serial / Lot Device Angio-Seal Vip .035in 70cm 6fr [employer] Guidewire - [id number] Implanted:11/28 (Quantity not on file) [facility] [id number] / / Care Teams Green Building Energy Engineer Relationship Specialty Start Date End Date Andrade Robles MD [address] [place], [place] [address] [phone] PCP - General Cardiology 11/27/18
--- OUTSIDE RECORDS SUMMARY | 2025-09-04 14:59 | XMS_ITS | Clinical Summary ---
Author Organization [facility] Address [address] [place] [address] Care Team Providers Care Physician/Allergy/Immunology Name Role Phone Andrade Robles MD Primary Care Provider [phone] Allergies No known active allergies Medications Medication [...] ADULT PO) Take by mouth. 0 Active [facility] 3 1000 MG CAPS Take by mouth. [...] this topic Medical Devices Implanted Type Area Meat Blender Device Identifier Shelf Expiration Date Model / Serial / Lot Device Angio-Seal Vip .035in 70cm 6fr [employer] Guidewire - [id number] - [id number] Implanted:11/28 [facility] (Quantity not on file) [facility] [id number] / / Advance Directives For more information, please contact: [phone] Latest Code Status on File Code Status [...] way: discussion with patient . Care Teams Physician/Allergy/Immunology Relationship Specialty Start Date End Date Andrade Rboles MD PCP - General Cardiology 11/27/18
== END 2025-09-04 12:18 | disposition home or self-care (01) ==
LOC: HO.HMCC 11:06
PROVIDERS: PCP Internal Medicine; Visit Provider Internal Medicine
DX: Z00.00 Encounter for general adult medical examination without abnormal findings (principal); J44.9 Chronic obstructive pulmonary disease, unspecified; I48.19 Other persistent atrial fibrillation; F31.9 Bipolar disorder, unspecified; M50.30 Other cervical disc degeneration, unspecified cervical region; D64.9 Anemia, unspecified; E83.42 Hypomagnesemia; K52.9 Noninfective gastroenteritis and colitis, unspecified; K21.9 Gastro-esophageal reflux disease without esophagitis; E78.5 Hyperlipidemia, unspecified; I65.23 Occlusion and stenosis of bilateral carotid arteries; I10 Essential (primary) hypertension

== ENCOUNTER → 2025-09-04 11:05 | Outpatient (BNVA) | payer MEDICARE, SELFPAY | PROVIDERS: PCP Internal Medicine; Visit Provider Internal Medicine | DX: I10 Essential (primary) hypertension (principal); E78.5 Hyperlipidemia, unspecified; I48.19 Other persistent atrial fibrillation; K21.9 Gastro-esophageal reflux disease without esophagitis; M50.30 Other cervical disc degeneration, unspecified cervical region; K90.829 Short bowel syndrome, unspecified; J44.9 Chronic obstructive pulmonary disease, unspecified; D64.9 Anemia, unspecified; E83.42 Hypomagnesemia; K52.9 Noninfective gastroenteritis and colitis, unspecified; I65.23 Occlusion and stenosis of bilateral carotid arteries; F31.9 Bipolar disorder, unspecified; Z95.1 Presence of aortocoronary bypass graft; Z79.01 Long term (current) use of anticoagulants | CPT/HCPCS: 96127 ==

== ENCOUNTER 2025-09-17 02:56 | Inpatient (IN) | payer MEDICARE, SELFPAY ==
--- OUTSIDE RECORDS SUMMARY | 2024-05-10 03:15 | XMS_ITS ---
Author Organization [facility] Address [address] [place] [phone] Care Team Providers Care Virtualization Engineer Name Role Phone Juan M WADDELL, Molly Jensen Primary Care Provider Un available Black, Carli Unavailable [phone] Encounters Encounter Location Date Provider Diagnosis [address] [address] 05/10/2024 Carli Black Plan Of Treatment No Information Progress Notes * Deidre LUNADOB: (69 yo F)Acc No.[id number]:05/10/2024 Progress Note Patient: Deidre CUELLAR Provider: Reza Jenkins DPM :1955 A ge:68 Y S ex:Female Date:05/10/2024 Address:[address] [place] [phone] Pcp:Sumanth Orozco Subjective: * Chief Complaints: * [...] 0 05/10/2024 Generated for Steve hernandez/Yasmeen/eTransmitting on: 11/17/2024 04:05 AM EST
[2025-09-17] VITALS (7 sets, daily range): BP systolic 118–168; BP diastolic 67–117; PULSE 78–106; RESP 12–21; TEMP 36.3–36.8; O2SAT 93–98; BMI 34.1; BMI 32.8
--- NOTE | 2025-09-17 | ECG_ITS ---
Test Reason : NAUSEA Blood Pressure : */* mmHG Vent. Rate : 92 BPM Atrial Rate : * BPM P-R Int : * ms QRS Dur : 118 ms QT Int : 408 ms P-R-T Axes : * -66 17 degrees QTcB Int : 504 ms Atrial fibrillation Left anterior fascicular block Possible Lateral infarct , age undetermined Abnormal ECG When compared with ECG of 12-Nov-2024 19:49, Atrial fibrillation has replaced Atrial flutter Referred By: Generic ED Physician Electronically Signed By: Warren Sun
--- NOTE | ~2025-09-17 | CT_ITS ---
CLINICAL HISTORY: SBO hx, vomiting CT abdomen and pelvis with contrast Comparison: CT - CT ABDOMEN PELVIS W IV CON - 09/17/25 04:[address]/SR - CT ABDOMEN PELVIS W IV CON - 11/12/24 20:08 EST Findings: There is airway thickening and interlobular septal thickening of the lung bases. Severe calcification of the mitral annulus. The lap band is in stable positioned. The stomach is significantly distended and there is mild distention of the proximal duodenum. Relative transition within the proximal jejunum in the region of thickening, coronal 42. Similar-appearing fecalized small bowel within the midabdomen, to the level of small-bowel anastomoses within the lower central abdomen. There is diffuse colonic wall thickening. No pneumatosis or free air. Trace free fluid. Diffuse stranding throughout the mesentery. The gallbladder is absent. The liver is again nodular in contour. The spleen is enlarged. Several small collateral veins are again noted. No discrete hepatic lesion. Kidneys, ureters and bladder are normal. Uterus and adnexa are unremarkable. Diffuse atherosclerotic disease. No destructive bone lesion. Impression: Diffuse colonic wall thickening consistent with colitis without evidence of pneumatosis or free air. Significantly distended stomach and mildly distended proximal duodenum. Correlation for gastroparesis. There is the suggestion of abnormal thickening involving the proximal jejunum as detailed above. Fecalized small bowel to the level of anastomoses, similar to prior. Suspect slow transit related to partial stricturing. Small volume ascites. Additional incidental findings. This document has been electronically signed by: Manuel Ramos MD on 09/17/2025 06:56:54
--- NOTE | ~2025-09-17 | XR_ITS ---
EXAMINATION: XR CHEST 1 VIEW HISTORY: NGT placement COMPARISON: Comparison is made with the prior examination dated 11/14/2024. FINDINGS: A single AP portable view of the chest performed at 7:20 AM is submitted. A nasogastric tube has been placed with its tip below the diaphragm. The sidehole is at the GE junction. There are increased interstitial markings throughout the lungs. No focal airspace opacity is identified. There is no pleural effusion, pneumothorax, or pulmonary vascular congestion. The heart is normal in size. The patient is status post median sternotomy. There is mitral annular calcification.. There is degenerative disc disease of the spine. A portion of the fusion plate is noted in the lower cervical spine. XR/XR chest 1V IMPRESSION: The tip of the nasogastric tube is below the diaphragm with the side hole at the GE junction. Advancement of the tube is suggested. Electronically signed by: Philipp Petersen MD 09/17/2025 07:44 AM [facility]
[2025-09-17 03:50] LABS: MANUAL DIFF FLAG NO
[2025-09-17] MEDS: Lactated Ringers 1,000 ML 999 ML IV (03:50)
[2025-09-17 03:54] LABS: Hematocrit 37.7 % (37.0-47.0); Hemoglobin 12.5 g/dl (12.0-16.0); Imm Gran Abs Auto 0.02 X10*3/uL (0.00-0.03); Imm Gran Pct Auto 0.3 % (0.0-0.4); Lymphocytes Absolute Auto 0.5 X10*3/uL (1.2-4.9); Mean Corpuscular HGB Conc 33.2 g/dl (31.0-35.0); Mean Corpuscular Hemoglobin 28.4 pg (27.0-33.0); Mean Corpuscular Volume 85.7 fL (80.0-98.0); NRBC Abs Auto 0.000 X10*3/uL (0.0-0.012); NRBC Pct Auto 0.0 /100WBC (0.0-0.2); Platelet Count 144 X10*3/uL (160-400); Red Blood Count 4.40 X10*6/uL (4.20-5.50); White Blood Count 6.5 X10*3/uL (4.8-10.8)
[2025-09-17 04:05] LABS: Alanine Aminotransferase 27 U/L (0-31); Albumin Level 3.9 g/dL (3.5-5.0); Alkaline Phosphatase 241 U/L (39-117); Anion Gap 13 (12-20); Aspartate Amino Transferase 63 U/L (5-31); Blood Urea Nitrogen 11 mg/dL (9-16); Calcium 8.9 mg/dL (8.4-10.2); Carbon Dioxide 23 mmol/L (22-29); Chloride 107 mmol/L (96-108); Creatinine Clr Calc Pharmacy 65.0; Estimated Glomerular Filt Rate > 60; Lipase 26 U/L (8-78); Magnesium 1.5 mg/dL (1.6-2.6); Potassium 3.8 mmol/L (3.3-5.1); Sodium 139 mmol/L (135-145); Total Protein 8.2 g/dL (6.5-8.0)
--- OUTSIDE RECORDS SUMMARY | 2025-09-17 04:05 | XMS_ITS | Patient Health Record ---
Author Organization [facility] Urgent Care - So [facility] Address [address] [place] [address] Support Name Relationship Address Phone Deidre To Guarantor Unknown [phone] Reason For Referral No Information Plan Of Treatment No Information Insurance Providers Payer Name Payer Address Payer Phone Subscriber Number Group Number Insured Name Patient Relationship to Insured Coverage Start Date Coverage End Date Medicare [address] [address] [place] [address] [id number] Deidre To Self - patient is the insured Pre Op Covid Testing not for submission KHRIS cotto [id number] preop Deidre To Self - patient is the insured
--- OUTSIDE RECORDS SUMMARY | 2025-09-17 04:05 | XMS_ITS | Clinical Summary ---
Author Organization [facility] it Address [address] [place] [address] Care Team Providers Care Physical Therapy Instructor Name Role Phone Andrade Robles MD Primary Care Provider [phone] Surgical History Surgery Date Site/Laterality Comments COLECTOMY [...] PROCEDURE:CARDIAC CATHETERIZATION;COMMENT:Proced ure: LEFT HEART CATHETERIZATION; Surgeon: Samna Ibarra MD; Location: [facility] DES[facility]; Service: Cardiology; Laterality: Right; Medical History Medical [...] this topic Medical Devices Implanted Type Area Lever Operator Device Identifier Shelf Expiration Date Model / Serial / Lot Device Angio-Seal Vip .035in 70cm 6fr [employer] Guidewire - [id number] Implanted:11/28 (Quantity not on file) [facility] [id number] / / Care Teams Physical Therapy Instructor Relationship Specialty Start Date End Date Andrade Robles MD [address] [place], [place] [address] [phone] PCP - General Cardiology 11/27/18
--- OUTSIDE RECORDS SUMMARY | 2025-09-17 04:05 | XMS_ITS | Patient Health Record ---
Author Organization [facility] [place] [place] Address [address] [place] [address] Care Team Providers Care Community Health Advisor Name Role Phone Juan M WADDELL, Molly Jensen Primary Care Provider Un available Black, Carli Unavailable [phone] Allergies No Known Allergies Reason For Referral No Information Medications Medication SIG (Take, Route, Frequency, Duration) Notes Start Date End Date Status Munger 3 1000 MG 1 capsule Orally Thr [...] Problem Acquired hammer toe of right foot (4840536302703977) Other hammer toe(s) (acquired), right foot (M20.41) Active confirmed Problem Acquired hammer toe of left foot (4884472892210416) Other hammer toe(s) (acquired), left foot (M20.42) Active confirmed Problem 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 (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) 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 confirmed Problem Bilateral atherosclerosis of arteries of lower limbs (disorder) (51266318332457158 ) Atherosclerosis of [place] artery of both lower extremities, with unspecified presence of clinical manifestation (I70.203) Active confirmed Plan Of Treatment Pending Test Test Name Order Date [id number] SKIN LESIONS, 2 TO 4 01/26/20 [id number] DYSTROPHIC NAILS ANY # Insurance Providers Payer Name Payer Address Payer Phone Subscriber Number Group Number Insured Name Patient Relationship to Insured Coverage Start Date Coverage End Date Medicare National Govt Svcs Inc [address] [place] [address] [id number] Deidre To Self - patient is the insured AARP Secondary to Medicare [address] [place] [address] [id number] Deidre To Self - patient is the [...] left foot 1996 Hospitalization History Reason Date(Month/Year) [facility] [place] -3 day stay -fall 02/04
--- OUTSIDE RECORDS SUMMARY | 2025-09-17 04:05 | XMS_ITS | Clinical Summary ---
Author Organization [facility] Address [address] [place] [address] Care Team Providers Care Charge Accounts Audit Clerk Name Role Phone Andrade Robles MD Primary Care Provider [phone] Allergies No known active allergies Medications Medication [...] ADULT PO) Take by mouth. 0 Active Selma 3 1000 MG CAPS Take by mouth. [...] this topic Medical Devices Implanted Type Area Regional Climate Change Analyst Device Identifier Shelf Expiration Date Model / Serial / Lot Device Angio-Seal Vip .035in 70cm 6fr [employer] - [id number] - [id number] Implanted:11/[address] [facility] and [facility] (Quantity not on file) [facility] [employer] [id number] / / Advance Directives For more information, please contact: [phone] Latest Code Status on File Code Status [...] way: discussion with patient . Care Teams Charge Accounts Audit Clerk Relationship Specialty Start Date End Date Andrade Robles MD PCP - General Cardiology 11/27/18
[2025-09-17] MEDS: Magnesium Sulfate/H2O 2 GM/50 ML PIGGYBACK IV (04:40)
[2025-09-17] MEDS: diazePAM 10 MG/2 ML CARTRIDGE 5 MG IVPUSH (04:40)
--- NOTE | 2025-09-17 04:50 | ED_ITS ---
HPI - Nausea/Vomiting/Diarrhea General Chief complaint: Nausea/Vomiting/Diarrhea Stated complaint: n/v Time Seen by Provider: 09/17/25 03:19 History of Present Illness HPI Narrative: 69-year-old female with extensive past medical history including CAD status post CABG, COPD, liver cirrhosis, atrial fibrillation on Xarelto, GERD, anemia, hypertension, aortic stenosis, bipolar disorder, status post gastric banding, sigmoid colon resection due to colon cancer, ileostomy reversal, cholecystectomy and multiple bowel obstructions presenting with lower abdominal pain radiating into her upper abdomen ongoing since about 5:00 p.m. last night. Patient states she was able to take her afternoon medications and then sometime in the afternoon developed worsening abdominal pain, nausea and vomiting. Last bowel movement was yesterday morning around 1:00 a.m.. No reported hematochezia or melena. States she feels like she has another bowel obstruction. No reported fever. Denies chest pain or difficulty breathing. Chronic cough associated with her COPD. No change in sputum production. Patient received IM Zofran by EMS without relief. She also took Zofran at home orally which did not seem to help. Related Data Home Medications ?Medication ?Instructions ?Recorded ?Confirmed acetaminophen 325 mg tablet 650 mg PO Q8H PRN ARTHRITI S PAIN 01/09/24 07/02/25 citalopram 40 mg tablet 40 mg PO DAILY 01/09/2406/14 multivitamin 1 tab PO DAILY 02/28/2406/14 lactobacillus combination no.4 3 3,000 mmu cells PO DA TRACEY@0800 04/10/24 07/02/25 billion cell capsule (Probiotic) temazepam 15 mg capsule 15 mg PO BEDTIME 05/16/24 carbamazepine 200 mg tablet 200 mg PO TID 11/12/24 cyclobenzaprine 10 mg tablet 10 mg PO BEDTIME PRN 06/1407/02/25 Previous Rx's ?Medication ?Instructions ?Recorded quetiapine 100 mg tablet 100 mg PO BEDTIME #90 tabs 1 11/16/23 ondansetron 8 mg disintegrating 8 mg translingual Q8H PRN Nausea 09/26/24 tablet And Vomiting #60 tabs nystatin 100,000 unit/gram topical 1 appl topical KRISTAN Y PRN rash #60 04/01/25 powder grams rivaroxaban 20 mg tablet (Xarelto) 20 mg PO DAILY #90 tabs 04/01/25 albuterol sulfate 2.5 mg/3 mL 2.5 mg (3 mL) inhalation Q12H PRN 04/02/25 (0.083 %) solution for nebulization dyspnea #180 mL carvedilol 6.25 mg tablet 6.25 mg PO BID 90 days #180 tabs 05/08/25 atorvastatin 80 mg tablet 80 mg PO DAILY #90 tabs 05/15 06/07 calcium carbonate 500 mg PO DAILY #90 tabs omeprazole 20 mg capsule,delayed 20 mg PO DAILY 90 day s #90 caps 08/06/25 release cholecalciferol (vitamin D3) 50 50 mcg PO DAILY #90 ca ps 08/14/25 mcg (2,000 unit) capsule albuterol sulfate 90 mcg/actuation 2 puff inhalation Q 6H PRN 09/04/25 aerosol inhaler (Ventolin HFA) shortness of breath or wheezing #8.5 grams ipratropium 0.5 mg-albuterol 3 mg 3 ml inhalation BID PRN wheezing 09/04/25 (2.5 mg base)/3 mL nebulization #90 mL soln magnesium glycinate 200 mg (2 x 100 mg magnesium ) PO 09/04/25 DAILY #60 caps Allergies Allergy/AdvReac Type Severity Reaction Status Date / Time No Known Allergies Allergy Verified 09/17/25 03:09 Review of Systems 2 Review of Systems: as per HPI, full review of systems performed and negative but for the above mentioned pertinent positives and negatives. [facility] Past Medical History Medical History COPD (chronic obstructive pulmonary disease) C. difficile colitis History of small bowel obstruction Hx of colon cancer, stage III Bipolar 1 disorder CAD (coronary artery disease) Persistent atrial fibrillation Essential hypertension Hyperlipidemia Personal history of nicotine dependence Unsteady gait Thrombocytopenia Anemia Cervical radiculopathy due to degenerative joint disease of spine History of radius fracture Degenerative disc disease, cervical Acquired deafness of left ear Surgical History Status post coronary artery bypass graft History of coronary artery bypass graft x 2 (~2018) History of cardiac catheterization History of partial colectomy (~2016) History of reversal of ileostomy History of resection of small bowel (~2020) History of laparoscopic adjustable gastric banding (~2004) History of laparoscopic cholecystectomy (~2003) History of parotidectomy (~2014) History of cervical discectomy (~2013) History of surgery on right wrist History of colonoscopy History of esophagogastroduodenoscopy (EGD) History of appendectomy (~2003) History of tonsillectomy History of bunionectomy Family History Family History Sister Substance use disorder Insulin dependent type 1 diabetes mellitus Mother Colon cancer Breast cancer Coronary artery disease High cholesterol Essential hypertension Father Heart disease Brother Heart disease Social History Social History Household Members: None Housing: Apartment Are you a primary assistant child care teacher to a significant other at home: No Do you presently have visiting nurse or other home services: No Alcohol intake: never Patient Tobacco Use Status: Former Tobacco user Tobacco use type: Cigarette Years Smoked: (former smoker - onset 30yo, 1ppd x 33yrs, 30pyh, quit 11/2018) e-Cigarette/Vaping Use: Never Used Second Hand Smoke Exposure: No Advance Directives: Yes Advance Directives on File: Yes Advance Directives Date on File: 05/09/24 Do you have a plan to hurt others: No Plan service: No Current occupational status: retired Cognitive needs: No Hearing needs: No Vision needs: Yes Physical Exam 2 Exam: Exam: GENERAL: Ill-Appearing, appears uncomfortable. SKIN: Normal skin color for ethnicity, warm, dry, no rashes noted. HEENT:? Normocephalic, atraumatic, no stridor, dry mucous membranes, dentition intact, EOMI. NECK: Soft, supple, full ROM, midline structures nontender, no step-offs, no deformities, no lymphadenopathy. CHEST: Heart regular tachycardia, no murmurs, symmetric chest rise and fall. PULMONARY: Clear to auscultation bilaterally, diminished at the bases, no labored breathing, no wheezes/rhales/rhonchi. ABDOMINAL: Softly distended, diffusely tender to palpation with guarding, hyperactive bowel sounds in all quadrants. : Deferred. MUSCULOSKELETAL: Normal tone, full range of motion, no deformities, no peripheral edema. NEURO: Alert and oriented x3, CN II through XII intact, equal strength and sensation bilateral upper and lower extremities, no focal neurologic deficits.? PSYCHIATRIC: Flat affect, fluid speech, good eye contact and appropriate demeanor. Vital Signs: Vital Signs: Last Vital Signs Temp 98.1 F 09/17/25 07:08 Pulse 98 09/17/25 07:08 Resp 21 H 09/17/25 07:08 BP 147/88 H 09/17/25 07:08 Pulse Ox 93 09/17/25 07:08 O2 Del Method Room Air 09/17/25 07:08 BMI result Body Mass Index 34.1 Medications Administered Discontinued Medications Generic Name Dose Route Start Last Admin Trade Name Yousifq PRN Reason Stop Dose Admin Diazepam 5 mg 09/17/25 04:15 09/17/25 04:40 Diazepam 10 Mg/2 Ml Cartridge IVPUSH 09/17/25 04:16 5 mg STAT STA Administration Lactated Ringer's 1,000 mls @ 999 mls/hr 09/17/25 03:42 09/17/25 04:51 Lr IV 09/17/25 04:42 Infused .Q1H1M ONE Infusion Magnesium Sulfate 2 gm in 50 mls @ 25 mls/hr 09/17/25 04:15 09/17/25 06:40 Magnesium Sulfate/H2o IV 09/17/25 06:14 Infused ONCE ONE Infusion Iohexol 85 ml 09/17/25 05:06 09/17/25 05:24 Iohexol 350 Mg/Ml 100 Ml Infus..Btl IV 09/17/25 05:07 85 ml ONCE ONE Administration Prochlorperazine Edisylate 10 mg 09/17/25 03:42 09/17/25 03:50 Prochlorperazine Edisylate 10 Mg/2 Ml Vial IVPUSH 09/17/25 03:43 10 mg ONCE ONE Administration Medical Decision Making Medical Decision Making MDM Narrative: Patient presents today with a chief complaint of vomiting. Differential diagnosis includes surgical emergency such as obstruction, enteritis, hyperglycemia, acidosis, food or drug ingestion, pancreatitis, CVA, allergic reaction such as anaphylaxis, cannabis hyperemesis syndrome or cyclic vomiting syndrome, among many others.? Patient is not showing signs of acute dehydration or hemodynamic instability.? They are having associated abdominal pain and the patient actively vomits when I push on her abdomen. ? Broad-based work-up was initiated based on above history and physical exam. Medicated with Compazine for nausea and vomiting. 4:01 AM 09/17/2025 (Dr. Gaby Shankar, [place].) patient with continued vomiting despite Compazine. Her QTC is 504. We will medicate with magnesium and benzodiazepines for nausea. Awaiting CT study to evaluate for obstruction. 6:21 AM 09/17/2025 (Dr. Gaby Shankar, [place].) CT showing extremely distended abdomen. There is an issue with the computers and we are having downtime so I do not have a final read however, I will reach out to general surgery to be sure that she is admitted for partial bowel obstruction. Patient has an NG tube placed. She is feeling significant relief with emptying of the stomach. Admitted to general surgery in guarded condition. Differential Diagnosis Differential Diagnoses: The differential diagnosis associated with the presentation includes Admission/Observation Consideration of admission/observation: Escalation of care including admission/observation considered Lab Data MDM Lab Attestation statement: I reviewed the patient's lab results. 09/17/25 03:37 09/17/25 03:37 Labs: Lab Results 09/17/25 Range/Units 03:37 WBC 6.5 (4.8-10.8) X10*3/uL RBC 4.40 (4.20-5.50) X10*6/uL Hgb 12.5 (12.0-16.0) g/dl Hct 37.7 (37.0-47.0) % MCV 85.7 (80.0-98.0) fL MCH 28.4 (27.0-33.0) pg MCHC 33.2 (31.0-35.0) g/dl RDW 14.6 (11.0-16.0) % Plt Count 144 L (160-400) X10*3/uL MPV 10.2 (9.4-12.3) fL Immature Gran % (Auto) 0.3 (0.0-0.4) % Neut % (Auto) 82.3 H (45-73) % Lymph % (Auto) 7.1 L (20-40) % [place] % (Auto) 7.2 (2-11) % Eos % (Auto) 2.6 (0-4) % Baso % (Auto) 0.5 (0-2) % Lymph # (Auto) 0.5 L (1.2-4.9) X10*3/uL [place] # (Auto) 0.5 (0.1-1.2) X10*3/uL Eos # (Auto) 0.2 (0.0-0.4) X10*3/uL Baso # (Auto) 0.0 (0.0-0.2) X10*3/uL Abs Immat Gran (auto) 0.02 (0.00-0.03) X10*3/uL Absolute Neuts (auto) 5.4 (2.0-8.3) x10*3/uL Absolute Nucleated RBC 0.000 (0.0-0.012) X10*3/uL Nucleated RBC % (auto) 0.0 (0.0-0.2) /100WBC Sodium 139 (135-145) mmol/L Potassium 3.8 (3.3-5.1) mmol/L Chloride 107 (96-108) mmol/L Carbon Dioxide 23 (22-29) mmol/L Anion Gap 13 (12-20) BUN 11 (9-16) mg/dL Creatinine 0.76 (0.5-1.4) mg/dL Estim Creat Clear Calc 65.0 Estimated GFR > 60 Random Glucose 150 H (60-115) mg/dL Calcium 8.9 (8.4-10.2) mg/dL Magnesium 1.5 L (1.6-2.6) mg/dL Total Bilirubin 1.0 (0.0-1.0) mg/dL AST 63 H (5-31) U/L ALT 27 (0-31) U/L Alkaline Phosphatase 241 H (39-117) U/L Total Protein 8.2 H (6.5-8.0) g/dL Albumin 3.9 (3.5-5.0) g/dL Lipase 26 (8-78) U/L Independent Interpretation I performed an independent interpretation of an: EKG Interpretation: My independent interpretation of the ECG reveals atrial fibrillation with a rate of 92, left axis deviation, left anterior fascicular block, QTC prolonged, no ST elevations or depressions to suggest ischemic changes, relatively unchanged from previous on 11/12/2024. Radiology Impression Discussion of test interpretation with radiology: I have reviewed the radiologist's reading. Radiologist Impression: CT abdomen and pelvis with contrast Findings: There is airway thickening and interlobular septal thickening of the lung bases. Severe calcification of the mitral annulus. The lap band is in stable positioned. The stomach is significantly distended and there is mild distention of the proximal duodenum. Relative transition within the proximal jejunum in the region of thickening, coronal 42. Similar-appearing fecalized small bowel within the midabdomen, to the level of small-bowel anastomoses within the lower central abdomen. There is diffuse colonic wall thickening. No pneumatosis or free air. Trace free fluid. Diffuse stranding throughout the mesentery. The gallbladder is absent. The liver is again nodular in contour. The spleen is enlarged. Several small collateral veins are again noted. No discrete hepatic lesion. Kidneys, ureters and bladder are normal. Uterus and adnexa are unremarkable. Diffuse atherosclerotic disease. No destructive bone lesion. Impression: Diffuse colonic wall thickening consistent with colitis without evidence of pneumatosis or free air. Significantly distended stomach and mildly distended proximal duodenum. Correlation for gastroparesis. There is the suggestion of abnormal thickening involving the proximal jejunum as detailed above. Fecalized small bowel to the level of anastomoses, similar to prior. Suspect slow transit related to partial stricturing. Small volume ascites. Additional incidental findings. Independent Historian Clinical information obtained from an independent historian. History obtained from or confirmed by: EMS External Record Review External record reviewed: Inpatient record Chronic Conditions Patient?s care impacted by: Hypertension and Other (Multiple bowel obstructions, colon cancer status post resection and ileostomy reversal, CAD status post CABG) Critical Care Time Critical Care Time Critical Care Time: Yes Total Critical Care Time: 35 Attestation: CRITICAL CARE TIME: 35 minutes of critical care time was spent in direct patient care at the bedside or in the immediate area with this patient. Critical care was necessary to treat or prevent imminent or life-threatening deterioration of the following conditions hypomagnesemia, intractable vomiting due to bowel obstruction. This patient is high risk for decompensation and/or . This time was spent assessing and managing the patient, interpreting labs and imaging, coordinating care with other medical providers, gathering history from either the patient, their representatives, EMS or chart review, and discussing management with General surgery, admitting team. Discharge Plan Discharge Clinical Impression: Partial bowel obstruction, Acute vomiting, Hypomagnesemia Patient Disposition: Admitted As Inpatient Print Language: Monegasque
[2025-09-17] MEDS: iohexoL 350 MG/ML 100 ML INFUS..BTL 85 ML IV (05:24)
--- NOTE | 2025-09-17 06:06 | PC.NURSE ---
Pt ambulated to bathroom, one assist
--- NOTE | 2025-09-17 07:18 | PC.NURSE ---
patient a&ox3, vss, rr equal/non labored, ng tube to lt nare- presently connected to continuous low wall suction as patients stomach contents was leaking- provider is aware-awaiting xray. healthcare specialist intact- afib on monitor, call harmon sia marina, plan of care ongoing
--- NOTE | 2025-09-17 08:00 | P.CONHOSP_ITS ---
History of Present Illness Data of Consult Service Date: 09/17/25 Primary Care Provider: Molly Mcgowan MD HPI 69 year old women with hx of SBO presenting with abdominal pain to her upper and lower abdomen that started last evening. She also reported nausea and vomiting without bleeding. She did say she had a bowel movement yesterday morning. She denied fever or chills. Abdominal and pelvic CT shows evidence of bowel obstruction. She was admitted by general surgery an NG-tube placed. Review of Systems 2 Review of Systems: Denies any recent fever chills or decrease in appetite respiratory denies any shortness of breath or cough cardiovascular denies chest pain gastrointestinal see HPI genitourinary denies any dysuria frequency or hematuria musculoskeletal denies any joint pain or swelling neuropsych denies any weakness or seizures all other systems reviewed are negative [facility] Medical History COPD (chronic obstructive pulmonary disease) C. difficile colitis History of small bowel obstruction Hx of colon cancer, stage III Bipolar 1 disorder CAD (coronary artery disease) Persistent atrial fibrillation Essential hypertension Hyperlipidemia Personal history of nicotine dependence Unsteady gait Thrombocytopenia Anemia Cervical radiculopathy due to degenerative joint disease of spine History of radius fracture Degenerative disc disease, cervical Acquired deafness of left ear Family History Sister Substance use disorder Insulin dependent type 1 diabetes mellitus Mother Colon cancer Breast cancer Coronary artery disease High cholesterol Essential hypertension Father Heart disease Brother Heart disease Surgical History Status post coronary artery bypass graft History of coronary artery bypass graft x 2 (~2018) History of cardiac catheterization History of partial colectomy (~2015) History of reversal of ileostomy History of resection of small bowel (~2020) History of laparoscopic adjustable gastric banding (~2004) History of laparoscopic cholecystectomy (~2003) History of parotidectomy (~2014) History of cervical discectomy (~2013) History of surgery on right wrist History of colonoscopy History of esophagogastroduodenoscopy (EGD) History of appendectomy (~2003) History of tonsillectomy History of bunionectomy Social History Household Members: None Housing: Apartment Are you a primary college and career counselor to a significant other at home: No Do you presently have visiting nurse or other home services: No Alcohol intake: never Patient Tobacco Use Status: Former Tobacco user Tobacco use type: Cigarette Years Smoked: (former smoker - onset 30yo, 1ppd x 33yrs, 30pyh, quit 11/2018) e-Cigarette/Vaping Use: Never Used Second Hand Smoke Exposure: No Advance Directives: Yes Advance Directives on File: Yes Advance Directives Date on File: 05/09/24 Do you have a plan to hurt others: No Plan service: No Current occupational status: retired Cognitive needs: No Hearing needs: No Vision needs: Yes Meds Allergies Allergy/AdvReac Type Severity Reaction Status Date / Time No Known Allergies Allergy Verified 09/17/25 03:09 Active Medications: Current Medications Lactated Ringer's (Lr) 1,000 mls @ 100 mls/hr IVCONT .Q10H LAURA Acetaminophen (Ofirmev) 1,000 mg in 100 mls @ 400 mls/hr IV Q6H LAURA Morphine Sulfate (Morphine Sulfate 4 Mg/Ml Cartridge) 3 mg IVPUSH Q3H PRN; Protocol PRN Reason: Pain, Severe (Pain Scale 7-10) Ondansetron HCl (Ondansetron Hcl 4 Mg/2 Ml Vial) 4 mg IVPUSH Q8H PRN PRN Reason: Nausea and Vomiting Sodium Chloride (0.9 % Sodium Chloride Flush 3 Ml Syringe) 3 ml IVFLUSH QSHIFT LAURA Home Medications ?Medication ?Instructions ?Recorded ?Confirmed ?Last Taken ?Type acetaminophen 325 mg tablet 650 mg PO Q8H PRN ARTHRITI S PAIN 01/09/24 09/17/25 05/15/24 History citalopram 40 mg tablet 40 mg PO DAILY 01/09/2403/0809/16/25 History multivitamin 1 tab PO DAILY 02/28/2403/0809/16/25 History temazepam 15 mg capsule 15 mg PO BEDTIME 05/16/2409/15/25 History carbamazepine 200 mg tablet 200 mg PO TID 11/12/2403/0809/16/25 History biotin 1 mg tablet 1 mg PO DAILY 09/17/2509/1709/16/25 History carvedilol 6.25 mg tablet 6.25 mg PO BID@0800,1200 03/0809/17/25 09/16/25 History omeprazole 20 mg capsule,delayed 20 mg PO DAILY@0630 1 11/17/24 09/17/25 09/16/25 History release Physical Exam 2 Vital Signs and Narrative: Vital Signs: Last Vital Signs Temp 98.1 F 09/17/25 07:08 Pulse 98 09/17/25 07:08 Resp 21 H 09/17/25 07:08 BP 147/88 H 09/17/25 07:08 Pulse Ox 93 09/17/25 07:08 O2 Del Method Room Air 09/17/25 07:08 BMI result Body Mass Index 34.1 Appearing in no acute distress head is normocephalic atraumatic eyes pupils are PERRLA sclera is anicteric mouth throat mucous membranes are intact and moist neck is supple no lymphadenopathy, no JVD noted lung sounds are clear to auscultation heart regular rate rhythm, clear S1, S2 positive bowel sounds, NG-tube in place neuro patient is alert x3, no focal deficits Results Labs 09/17/25 03:37 09/17/25 03:37 Labs: Laboratory Results - last 24 hr 09/17/25 03:37 MCV 85.7 MCH 28.4 MCHC 33.2 RDW 14.6 Plt Count 144 L MPV 10.2 Immature Gran % (Auto) 0.3 Neut % (Auto) 82.3 H Lymph % (Auto) 7.1 L [place] % (Auto) 7.2 Eos % (Auto) 2.6 Baso % (Auto) 0.5 Lymph # (Auto) 0.5 L [place] # (Auto) 0.5 Eos # (Auto) 0.2 Baso # (Auto) 0.0 Abs Immat Gran (auto) 0.02 Absolute Neuts (auto) 5.4 Absolute Nucleated RBC 0.000 Nucleated RBC % (auto) 0.0 Anion Gap 13 Estim Creat Clear Calc 65.0 Estimated GFR > 60 Random Glucose 150 H Calcium 8.9 Magnesium 1.5 L Total Bilirubin 1.0 AST 63 H ALT 27 Alkaline Phosphatase 241 H Total Protein 8.2 H Albumin 3.9 Lipase 26 Imaging Radiologist's Impressions: Impressions Chest X-Ray 09/17/25 07:28 IMPRESSION: The tip of the nasogastric tube is below the diaphragm with the side hole at the GE junction. Advancement of the tube is suggested. Electronically signed by: Philipp Petersen MD 09/17/2025 07:44 AM EST Assessment and Plan (1) Bipolar 1 disorder: Status: Acute Plan 69 year old women admitted by general surgery for Small bowel obstruction Small bowel obstruction management as per surgical team Pain management Atrial fibrillation Hold anticoagulation for now If patient goes more than 24 hours consider IV heparin drip HLD hold statin Mental health Hold medications for now Obesity class 1. BMI 34.1 Discussed importance of weight management as this may be contributing to worsening of other comorbidities DVT prophylaxis as per surgical team Full code Medical consultation complete. Will sign off. Contact hospitalist team for questions.
[2025-09-17] MEDS: 0.9 % Sodium Chloride Flush 3 ML SYRINGE IVFLUSH (08:18)
[2025-09-17] MEDS: Lactated Ringers 1,000 ML 100 ML IVCONT ×2 (08:18→17:28)
--- NOTE | 2025-09-17 08:23 | PC.NURSE ---
IVF started per order, iv acetaminophen hung per order- pt reporting 2/10 pain to her lt nare at this time, pt denying abd pain.
--- NOTE | 2025-09-17 08:24 | PC.NURSE ---
NG tube advanced per request of ED provider, repeat cxr has been ordered
--- NOTE | 2025-09-17 08:29 | P.HPGS_ITS ---
History of Present Illness History of Present Illness Date of Service: 09/17/25 <So Mullins PA-C - Last Filed: 09/17/25 08:42> 09/17/25 <Ryan Regalado MD - Last Filed: 09/17/25 12:15> Chief complaint: SBO <So Mullins PA-C - Last Filed: 09/17/25 08:42> Narrative: Deidre To is a 69 year old female with PMH significant for A fib on xarelto, COPD, HTN, CAD two-vessel CABG, cirrhosis who presented to the ED with complaints of abdominal pain and vomiting that began on Tuesday. She is well kn own to the surgical service. She has had multiple abdominal surgeries including sigmoid colon resection with ileostomy for colon cancer in 2017, reversal of ileostomy, cholecystectomy and gastric band, all performed in [place]. She has had multiple episodes of small-bowel obstructions since then. She reports she developed pain Tuesday and felt horrible then developed nausea with multiple episodes of vomiting. She had not passed any flatus or BM. This felt similar to her previous obstructions and she therefore presented to the ED for evaluation. Work up included CBC, BMP, LFTs. She had mild AST and alk phos elevation, near her baseline, and hypomagnesemia. CT scan abd pelvis was obtained which showed a very distended stomach and dilated small bowel loops concerning for SBO. She had air distally in her rectum on my review. NGT was therefore inserted for close to 1L subsequently drained and admission requested. This morning, she feels improved since the NGT was inserted. She denies any abd pain or further nausea. She continues to deny any flatus or BM. <So Mullins PA-C - Last Filed: 09/17/25 08:42> Review of Systems Constitutional: Constitutional: Denies chills and Denies fever(s) <BIANCA Weinstein Last Filed: 09/17/25 08:42> Cardiovascular: Cardiovascular: Denies chest pain and Denies dyspnea <So Mullins PA-C - Last Filed: 09/17/25 08:42> Respiratory: Respiratory: Denies dyspnea <So Mullins PA-C - Last Filed: 09/17/25 08:42> Gastrointestinal: Gastrointestinal: Reports as per HPI <BIANCA Weinstein Last Filed: 09/17/25 08:42> Integumentary/Breasts: Skin/Breast: Denies rash and Denies jaundice <BIANCA Weinstein Last Filed: 09/17/25 08:42> [facility] Past Medical History Medical History: Medical History COPD (chronic obstructive pulmonary disease) C. difficile colitis History of small bowel obstruction Hx of colon cancer, stage III Bipolar 1 disorder CAD (coronary artery disease) Persistent atrial fibrillation Essential hypertension Hyperlipidemia Personal history of nicotine dependence Unsteady gait Thrombocytopenia Anemia Cervical radiculopathy due to degenerative joint disease of spine History of radius fracture Degenerative disc disease, cervical Acquired deafness of left ear <BIANCA Weinstein Last Filed: 09/17/25 08:42> Family History Family History: Family History Sister Substance use disorder Insulin dependent type 1 diabetes mellitus Mother Colon cancer Breast cancer Coronary artery disease High cholesterol Essential hypertension Father Heart disease Brother Heart disease <BIANCA Weinstein Last Filed: 09/17/25 08:42> Surgical History Surgical History: Surgical History Status post coronary artery bypass graft History of coronary artery bypass graft x 2 (~2018) History of cardiac catheterization History of partial colectomy (~2015) History of reversal of ileostomy History of resection of small bowel (~2020) History of laparoscopic adjustable gastric banding (~2004) History of laparoscopic cholecystectomy (~2003) History of parotidectomy (~2014) History of cervical discectomy (~2013) History of surgery on right wrist History of colonoscopy History of esophagogastroduodenoscopy (EGD) History of appendectomy (~2003) History of tonsillectomy History of bunionectomy <BIANCA Weinstein Last Filed: 09/17/25 08:42> Social History Social History: Social History Household Members: None Housing: Apartment Are you a primary point of care specialist to a significant other at home: No Do you presently have visiting nurse or other home services: No Alcohol intake: never Patient Tobacco Use Status: Former Tobacco user Tobacco use type: Cigarette Years Smoked: (former smoker - onset 30yo, 1ppd x 33yrs, 30pyh, quit 11/2018) e-Cigarette/Vaping Use: Never Used Second Hand Smoke Exposure: No Advance Directives: Yes Advance Directives on File: Yes Advance Directives Date on File: 05/09/24 Do you have a plan to hurt others: No Plan service: No Current occupational status: retired Cognitive needs: No Hearing needs: No Vision needs: Yes <So Mullins PA-C - Last Filed: 09/17/25 08:42> Meds Allergies/Adverse reactions: Allergies Allergy/AdvReac Type Severity Reaction Status Date / Time No Known Allergies Allergy Verified 09/17/25 03:09 <So Mullins PA-C - Last Filed: 09/17/25 08:42> Active Medications: Current Medications Lactated Ringer's (Lr) 1,000 mls @ 100 mls/hr IVCONT .Q10H [facility] Last Admin: 09/17/25 08:18 Dose: 100 mls/hr Acetaminophen (Ofirmev) 1,000 mg in 100 mls @ 400 mls/hr IV Q6H [facility] Last Admin: 09/17/25 08:18 Dose: 400 mls/hr Morphine Sulfate (Morphine Sulfate 4 Mg/Ml Cartridge) 3 mg IVPUSH Q3H PRN; Protocol PRN Reason: Pain, Severe (Pain Scale 7-10) Ondansetron HCl (Ondansetron Hcl 4 Mg/2 Ml Vial) 4 mg IVPUSH Q8H PRN PRN Reason: Nausea and Vomiting Sodium Chloride (0.9 % Sodium Chloride Flush 3 Ml Syringe) 3 ml IVFLUSH QSHIFT [facility] Last Admin: 09/17/25 08:18 Dose: 3 ml <So Mullins PA-C - Last Filed: 09/17/25 08:42> Home medications: Home Medications ?Medication ?Instructions ?Recorded ?Confirmed ?Last Taken ?Type acetaminophen 325 mg tablet 650 mg PO Q8H PRN ARTHRITI S PAIN 01/09/24 09/17/25 05/15/24 History citalopram 40 mg tablet 40 mg PO DAILY 01/09/2403/0809/16/25 History multivitamin 1 tab PO DAILY 02/28/2403/0809/16/25 History temazepam 15 mg capsule 15 mg PO BEDTIME 05/16/2409/15/25 History carbamazepine 200 mg tablet 200 mg PO TID 11/12/2403/0809/16/25 History biotin 1 mg tablet 1 mg PO DAILY 09/17/2509/1709/16/25 History carvedilol 6.25 mg tablet 6.25 mg PO BID@0800,1200 03/0809/17/25 09/16/25 History omeprazole 20 mg capsule,delayed 20 mg PO DAILY@0630 1 11/17/24 09/17/25 09/16/25 History release <BIANCA Weinstein Last Filed: 09/17/25 08:42> Physical Exam Vital Signs: Vital Signs: Last Vital Signs Temp 98.1 F 09/17/25 07:08 Pulse 98 09/17/25 07:08 Resp 21 H 09/17/25 07:08 BP 147/88 H 09/17/25 07:08 Pulse Ox 93 09/17/25 07:08 O2 Del Method Room Air 09/17/25 07:08 BMI result Body Mass Index 34.1 <BIANCA Weinstein Last Filed: 09/17/25 08:42> Const: General: comfortable, no acute distress and alert <BIANCA Weinstein Last Filed: 09/17/25 08:42> Orientation/consciousness: patient oriented x3 <BIANCA Weinstein Last Filed: 09/17/25 08:42> HEENT: Other: NGT in place, bilious output <BIANCA Weinstein Last Filed: 09/17/25 08:42> Resp: Effort & Inspection: normal respiratory effort and able to speak in complete sentences <BIANCA Weinstein Last Filed: 09/17/25 08:42> GI: Inspection: Yes distended (mild) and Yes scar (well healed midline infraumbilical scar, right mid abd transverse scar) <KRISTAN Weinstein Last Filed: 09/17/25 08:42> Palpation (GI): Soft to palpation, Tenderness to palpation present (GI) (moderate LLQ tenderness) with no rebound tenderness, no guarding and not rigid <BIANCA Weinstein Last Filed: 09/17/25 08:42> Percussion: Yes normal to percussion <BIANCA Weinstein Last Filed: 09/17/25 08:42> Skin: General skin exam: no rashes or lesions noted <BIANCA Weinstein Filed: 09/17/25 08:42> Neuro: General: patient oriented x3 and moves all extremities <BIANCA Weinstein Last Filed: 09/17/25 08:42> Results Results Labs: Short CBC 09/17/25 Range/Units 03:37 WBC 6.5 (4.8-10.8) X10*3/uL Hgb 12.5 (12.0-16.0) g/dl Hct 37.7 (37.0-47.0) % Plt Count 144 L (160-400) X10*3/uL BMP 09/17/25 03:37 Sodium 139 Potassium 3.8 Chloride 107 Carbon Dioxide 23 BUN 11 Creatinine 0.76 Calcium 8.9 Liver Function 09/17/25 Range/Units 03:37 Total Bilirubin 1.0 (0.0-1.0) mg/dL AST 63 H (5-31) U/L ALT 27 (0-31) U/L Alkaline Phosphatase 241 H (39-117) U/L Albumin 3.9 (3.5-5.0) g/dL <BIANCA Weinstein Last Filed: 09/17/25 08:42> Abdomen CT scan report/results: report reviewed and image reviewed <BIANCA Weinstein Filed: 09/17/25 08:42> Additional studies: labs reviewed <BIANCA Weinstein Filed: 09/17/25 08:42> Assessment and Plan (1) Small bowel obstruction: Status: Resolved <So Mullins PA-C - Last Filed: 09/17/25 08:42> [age] year old female known to the service, here because of abdominal pain and vomiting She has had multiple abdominal surgeries in the past including sigmoid resection, ileostomy, reversal of the ileostomy, gastric band She also has multiple medical problems I have reviewed her CAT scan and again this show dilated small bowel loops consistent with partial small-bowel obstruction Her abdomen is soft and benign currently She actually feels much better NG tube is in place and there was a lot of output on insertion IV fluids She is hemodynamically stable Hold anticoagulation for now Possible small-bowel follow-through depending on clinical Seen and examined independently <Ryan Regalado MD - Last Filed: 09/17/25 12:15> 69 year old female with PMH significant for A fib on xarelto, COPD, HTN, CAD two-vessel CABG, cirrhosis with hx of multiple abdominal surgeries and subsequent SBOs presenting with abd pain, nausea and obstipation with CT scan demonstrating distended stomach and dilated small bowel loops consistent with SBO. She does have air distally. NGT was inserted in the ED and she feels improved. Will therefore continue nonoperative measures for now and continue NGT for decompression, IVF hydration, PRN analgesics. Encouraged OOB/ambulation to promote GI function. May proceed with SBFT if no significant improvement in the next day or so and discussed possible need for surgical intervention as well if this does not resolve in a reasonable amount of time. She understands and agrees with plan. Hospitalist consult has been placed for management of her medical comorbidities, discussed holding OAC for now and hopefully can resume in the next day or so if she has improvement. <So Mullins PA-C - Last Filed: 09/17/25 08:42> Quality Stroke Does the patient have a stroke diagnosis?: No <So Mullins PA-C - Last Filed: 09/17/25 08:42> VTE Prior VTE?: No <So Mullins PA-C - Last Filed: 09/17/25 08:42> VTE Risk Level:: Surgical - moderate <So Mullins PA-C - Last Filed: 09/17/25 08:42> VTE Device Contraindication: N/A - Device Ordered <So Mullins PA-C - Last Filed: 09/17/25 08:42> VTE Drug Contraindication: Treatment Not Indicated <So Mullins PA-C - Last Filed: 09/17/25 08:42> Procedures Date of Service Date of Service: 09/17/25 <So Mullins PA-C - Last Filed: 09/17/25 08:42> 09/17/25 <Ryan Regalado MD - Last Filed: 09/17/25 12:15>
[2025-09-17 09:10] LABS: Appearance Urine Clear; Glucose Urine UA Negative (Negative); PH 5.5 (5.0-9.0); Specific Gravity - Urine >= 1.030 (1.005-1.025)
--- NOTE | 2025-09-17 09:15 | PHA.MEDREC ---
Addendum entered by Henrietta Olson courtney 09/17/25 09:29: reviewed Original Note: Pharmacy Consult ? Medication Reconciliation Pharmacy has completed the medication reconciliation. Spoke with pt and she confirmed her medications. Pt Carvedilol 6.25mg tabs BID @ breakfast and lunch and she confirmed she takes Tempazepam 15mg once at bedtime and confirmed she has some at home and gets them filled at [facility] in [place]; spoke with [facility] and they confirmed the pt last picked up Temazepam, 07/09 for 90 days.
--- NOTE | 2025-09-17 13:13 | HO.NURTONUR ---
patient a&ox3, ambulatory with stby assist due to NG tube. pt comes from home with vomiting since 5pm yesterday/abdomen was firm and distended. Pt has history of SBO last one was this past November. NG tube placed to lt nare total output so far is approx 2100. Mag was 1.5 and repleated, psychological stress evaluator afib-chronic on xarelto. She is NPO. 20G RT Wrist LR@100. Pt only complaint of pain currently was 2/10 lt nare pain from the NG tube.
--- NOTE | 2025-09-17 16:06 | PM.EVENT ---
Event Note Date of Service: 09/17/25 Event Note: Seen on afternoon rounds Says she is ?uncomfortable? Abdomen is soft and benign No significant tenderness or pain currently on the abdomen Complains of sore throat Okay to have Cepacol NG-tube in place Hemodynamically stable Time Spent With Patient Time: Total time managing care of this patient today ____ minutes.
[2025-09-17] MEDS: Throat Lozenge, Medicated LOZENGE 1 LOZENGE MUCOUS MEM ×2 (16:32→18:24)
[2025-09-18] MEDS: Lactated Ringers 1,000 ML 100 ML IVCONT ×3 (03:17→23:09)
[2025-09-18 06:25] LABS: MANUAL DIFF FLAG NO
[2025-09-18 06:47] VITALS: BP 152/80; PULSE 105; RESP 17; TEMP 36.6; O2SAT 93
[2025-09-18 06:58] LABS: Hematocrit 36.0 % (37.0-47.0); Hemoglobin 11.5 g/dl (12.0-16.0); Imm Gran Abs Auto 0.03 X10*3/uL (0.00-0.03); Imm Gran Pct Auto 0.3 % (0.0-0.4); Lymphocytes Absolute Auto 0.8 X10*3/uL (1.2-4.9); Mean Corpuscular HGB Conc 31.9 g/dl (31.0-35.0); Mean Corpuscular Hemoglobin 27.8 pg (27.0-33.0); Mean Corpuscular Volume 87.2 fL (80.0-98.0); NRBC Abs Auto 0.000 X10*3/uL (0.0-0.012); NRBC Pct Auto 0.0 /100WBC (0.0-0.2); Platelet Count 158 X10*3/uL (160-400); Red Blood Count 4.13 X10*6/uL (4.20-5.50); White Blood Count 9.5 X10*3/uL (4.8-10.8)
[2025-09-18 06:59] LABS: Anion Gap 14 (12-20); Blood Urea Nitrogen 14 mg/dL (9-16); Calcium 8.5 mg/dL (8.4-10.2); Carbon Dioxide 25 mmol/L (22-29); Chloride 107 mmol/L (96-108); Creatinine Clr Calc Pharmacy 65.4; Estimated Glomerular Filt Rate > 60; Magnesium 1.6 mg/dL (1.6-2.6); Potassium 3.9 mmol/L (3.3-5.1); Sodium 142 mmol/L (135-145)
--- NOTE | 2025-09-18 07:37 | P.PNGS_ITS ---
Subjective Subjective Date of Service: 09/18/25 <So Mullins PA-C - Last Filed: 09/18/25 07:39> 09/18/25 <Ryan Regalado MD - Last Filed: 09/18/25 08:24> Interval history: Continues to feel improved. Denies any abdominal pain. Denies flatus but reports she feels rumblings . <So Mullins PA-C - Last Filed: 09/18/25 07:39> Physical Exam 2 Vital Signs: Vital Signs: Last Vital Signs Temp 98 F 09/18/25 06:47 Pulse 105 H 09/18/25 06:47 Resp 17 09/18/25 06:47 BP 152/80 H 09/18/25 06:47 Pulse Ox 93 09/18/25 06:47 O2 Del Method Room Air 09/18/25 06:47 BMI result Body Mass Index 32.8 <So Mullins PA-C - Last Filed: 09/18/25 07:39> Const: General: comfortable, no acute distress and alert <So Mullins PA-C - Last Filed: 09/18/25 07:39> Orientation/consciousness: patient oriented x3 <BIANCA Weinstein Last Filed: 09/18/25 07:39> HEENT: Other: NGT in place with bilious output <So Mullins PA-C - Last Filed: 09/18/25 07:39> Resp: Effort & Inspection: normal respiratory effort and able to speak in complete sentences <So Mullins PA-C - Last Filed: 09/18/25 07:39> GI: Inspection: Yes distended (mild, improved ) <So Mullins PA-C - Last Filed: 09/18/25 07:39> Palpation (GI): Soft to palpation, nontender and no guarding <BIANCA Weinstein Last Filed: 09/18/25 07:39> Skin: General skin exam: no rashes or lesions noted <BIANCA Weinstein Last Filed: 09/18/25 07:39> Neuro: General: patient oriented x3 <BIANCA Weinstein Filed: 09/18/25 07:39> Objective Data Active Medications Benzocaine (Throat Lozenge, Medicated Lozenge) 1 lozenge MUCOUS MEM Q2H PRN PRN Reason: Sore Throat Last Admin: 09/17/25 18:24 Dose: 1 lozenge Documented By: PASQUALE Lactated Ringer's (Lr) 1,000 mls @ 100 mls/hr IVCONT .Q10H [facility] Last Admin: 09/18/25 03:17 Dose: 100 mls/hr Documented By: EYAL Acetaminophen (Ofirmev) 1,000 mg in 100 mls @ 400 mls/hr IV Q6H [facility] Last Admin: 09/18/25 02:12 Dose: Not Given Documented By: EYAL Non-Admin Reason: Patient Refused Morphine Sulfate (Morphine Sulfate 4 Mg/Ml Cartridge) 3 mg IVPUSH Q3H PRN; Protocol PRN Reason: Pain, Severe (Pain Scale 7-10) Last Admin: 09/18/25 00:03 Dose: 3 mg Documented By: EYAL Ondansetron HCl (Ondansetron Hcl 4 Mg/2 Ml Vial) 4 mg IVPUSH Q8H PRN PRN Reason: Nausea and Vomiting Sodium Chloride (0.9 % Sodium Chloride Flush 3 Ml Syringe) 3 ml IVFLUSH QSHIFT [facility] Last Admin: 09/18/25 00:13 Dose: Not Given Documented By: EYAL Non-Admin Reason: IV Running <So Mullins PA-C - Last Filed: 09/18/25 07:39> Labs CBC & Chem 7: 09/18/25 05:56 09/18/25 05:56 <So Mullins PA-C - Last Filed: 09/18/25 07:39> Labs: Laboratory Results - last 24 hr 09/17/25 09/18/25 08:55 05:56 MCV 87.2 MCH 27.8 MCHC 31.9 RDW 15.1 Plt Count 158 L MPV 10.1 Immature Gran % (Auto) 0.3 Neut % (Auto) 73.3 H Lymph % (Auto) 8.3 L Andrew % (Auto) 14.9 H Eos % (Auto) 2.7 Baso % (Auto) 0.5 Lymph # (Auto) 0.8 L Andrew # (Auto) 1.4 H Eos # (Auto) 0.3 Baso # (Auto) 0.1 Abs Immat Gran (auto) 0.03 Absolute Neuts (auto) 7.0 Absolute Nucleated RBC 0.000 Nucleated RBC % (auto) 0.0 Anion Gap 14 Estim Creat Clear Calc 65.4 Estimated GFR > 60 Random Glucose 100 Calcium 8.5 Magnesium 1.6 Urine Color Yellow Urine Appearance Clear Urine pH 5.5 Ur Specific [place] >= 1.030 H Urine Protein Trace Urine Glucose (UA) Negative Urine Ketones Negative Urine Blood Negative Urine Nitrite Negative Ur Leukocyte Esterase Negative Urine RBC 0-2 Urine WBC 0-5 Ur Squamous Epith Cells 0-2 Urine Bacteria None Seen Hyaline Casts 0-2 <So Mullins PA-C - Last Filed: 09/18/25 07:39> Procedures Date of Service Date of Service: 09/18/25 <So Mullins PA-C - Last Filed: 09/18/25 07:39> 09/18/25 <Ryan Regalado MD - Last Filed: 09/18/25 08:24> Progress Note: A&P Assessment and plan (1) Partial bowel obstruction: Status: Acute <So Mullins PA-C - Last Filed: 09/18/25 07:39> Assessment and Plan: No events overnight She says she feels well overall Denies abdominal pain Denies flatus Abdomen is soft and benign, nontender Keep NG tube in place Clinically looks well IV fluids Would hold off on long acting anticoagulation for now As per hospitalist, may need bridging with heparin drip because of atrial fibrillation Seen and examined independently <Ryan Regalado MD - Last Filed: 09/18/25 08:24> Assessment and Plan: Admitted for SBO, NGT output ~2000cc yesterday, no evidence of GI function. Abd soft, no significant distention, nontender. Cont supportive measures with NGT decompression until evidence of GI function and NGT output trends down. Encouraged OOB/ambulation and increasing activity to promote GI function. patient comfortable with plan. May need heparin bridging if no significant improvement in the next day. <So Mullins PA-C - Last Filed: 09/18/25 07:39> Time Spent With Patient Time: Total time managing care of this patient today ____ minutes. <So Mullins PA-C - Last Filed: 09/18/25 07:39> Quality Stroke Does the patient have a stroke diagnosis?: No <So Mullins PA-C - Last Filed: 09/18/25 07:39> VTE Prior VTE?: No <So Mullins PA-C - Last Filed: 09/18/25 07:39> VTE Risk Level:: Surgical - moderate <So Mullins PA-C - Last Filed: 09/18/25 07:39> VTE Device Contraindication: N/A - Device Ordered <So Mullins PA-C - Last Filed: 09/18/25 07:39> VTE Drug Contraindication: Treatment Not Indicated <So Mullins PA-C - Last Filed: 09/18/25 07:39>
[2025-09-18] MEDS: Throat Lozenge, Medicated LOZENGE 1 LOZENGE MUCOUS MEM ×4 (07:47→21:08)
[2025-09-18] MEDS: 0.9 % Sodium Chloride Flush 3 ML SYRINGE IVFLUSH ×3 (07:48→21:13)
--- NOTE | 2025-09-18 14:47 | PM.EVENT ---
Event Note Date of Service: 09/18/25 Event Note: Seen on afternoon rounds She says she has no pain NG tube output still significant Abdomen is soft, benign, nontender We will keep NG tube in sign she denies flatus Continue to follow closely IV fluids Follow electrolytes Time Spent With Patient Time: Total time managing care of this patient today ____ minutes.
[2025-09-18 14:54] VITALS: BP 136/83; PULSE 106; RESP 18; TEMP 36.6; O2SAT 93
--- NOTE | 2025-09-18 15:22 | MHC.CM.PN ---
IMM delivered. Patient lives at home alone. Ambulates w/ walker. Independent w/ care. No services. PCP Molly Mcgowan MD HCP on file and verified. DP: Home, patient agreeable to home services if recommended, [facility] preferred. Son to transport. CM will continue to follow.
[2025-09-18] MEDS: Albuterol Sulfate (0.083%) 2.5 MG/3 ML VIAL.NEB INHALE (15:59)
[2025-09-18 19:11] VITALS: BP 124/72; PULSE 100; RESP 18; TEMP 36.3; O2SAT 93
[2025-09-18 23:29] VITALS: BP 133/80; PULSE 99; RESP 14; TEMP 36.6; O2SAT 93
[2025-09-19 07:44] VITALS: BP 136/81; PULSE 92; RESP 16; TEMP 36.1; O2SAT 94
--- NOTE | 2025-09-19 07:54 | PM.PNGS ---
Subjective Subjective Date of Service: 09/19/25 <So Mullins PA-C - Last Filed: 09/19/25 07:57> 09/19/25 <Ryan Regalado MD - Last Filed: 09/19/25 09:41> Interval history: Now passing flatus. Denies abdominal pain, nausea/vomiting. NGT output significantly decreased. <So Mullins PA-C - Last Filed: 09/19/25 07:57> Physical Exam Vital Signs: Vital Signs: Last Vital Signs Temp 97.0 F 09/19/25 07:44 Pulse 92 09/19/25 07:44 Resp 16 09/19/25 07:44 BP 136/81 09/19/25 07:44 Pulse Ox 94 09/19/25 07:44 O2 Del Method Room Air 09/19/25 07:44 BMI result Body Mass Index 32.8 <BIANCA Weinstein Last Filed: 09/19/25 07:57> Const: General: comfortable, no acute distress and alert <So Mullins PA-C - Last Filed: 09/19/25 07:57> Orientation/consciousness: patient oriented x3 <So Mullins PA-C - Last Filed: 09/19/25 07:57> Resp: Effort & Inspection: normal respiratory effort <BIANCA Weinstein Last Filed: 09/19/25 07:57> GI: Other: abdomen remains distended but soft nontender <So Mullins PA-C - Last Filed: 09/19/25 07:57> Palpation (GI): no guarding and not rigid <So Mullins PA-C - Last Filed: 09/19/25 07:57> Percussion: Yes tympanic to percussion <BIANCA Weinstein Last Filed: 09/19/25 07:57> Skin: General skin exam: no rashes or lesions noted <BIANCA Weinstein Last Filed: 09/19/25 07:57> Neuro: General: patient oriented x3 and moves all extremities <BIANCA Weinstein Last Filed: 09/19/25 07:57> Objective Data Active Medications Albuterol Sulfate (Albuterol Sulfate 90 Mcg 8 Gm Inhaler) 2 puff INHALE Q6H PRN PRN Reason: shortness of breath or wheezing Albuterol Sulfate (Albuterol Sulfate (0.083%) 2.5 Mg/3 Ml Vial.Neb) 2.5 mg INHALE Q12H PRN PRN Reason: Dyspnea Last Admin: 09/18/25 15:59 Dose: 2.5 mg Documented By: KEATON Benzocaine (Throat Lozenge, Medicated Lozenge) 1 lozenge MUCOUS MEM Q2H PRN PRN Reason: Sore Throat Last Admin: 09/18/25 21:08 Dose: 1 lozenge Documented By: ALEXIA Comments: pharmacy notified Lactated Ringer's (Lr) 1,000 mls @ 100 mls/hr IVCONT .Q10H [facility] Last Admin: 09/18/25 23:09 Dose: 100 mls/hr Documented By: ALEXIA Acetaminophen (Ofirmev) 1,000 mg in 100 mls @ 400 mls/hr IV Q6H [facility] Last Infusion: 09/19/25 03:48 Dose: Infused Documented By: ALEXIA Morphine Sulfate (Morphine Sulfate 4 Mg/Ml Cartridge) 3 mg IVPUSH Q3H PRN; Protocol PRN Reason: Pain, Severe (Pain Scale 7-10) Last Admin: 09/19/25 03:29 Dose: 3 mg Documented By: ALEXIA Ondansetron HCl (Ondansetron Hcl 4 Mg/2 Ml Vial) 4 mg IVPUSH Q8H PRN PRN Reason: Nausea and Vomiting Sodium Chloride (0.9 % Sodium Chloride Flush 3 Ml Syringe) 3 ml IVFLUSH QSHIFT [facility] Last Admin: 09/18/25 21:13 Dose: 3 ml Documented By: ALEXIA <So Mullins PA-C - Last Filed: 09/19/25 07:57> Labs CBC & Chem 7: 09/18/25 05:56 09/19/25 08:35 <So Mullins PA-C - Last Filed: 09/19/25 07:57> Procedures Date of Service Date of Service: 09/19/25 <So Mullins PA-C - Last Filed: 09/19/25 07:57> 09/19/25 <Ryan Regalado MD - Last Filed: 09/19/25 09:41> Progress Note: A&P Assessment and plan (1) Partial bowel obstruction: Status: Acute <So Mullins PA-C - Last Filed: 09/19/25 07:57> Assessment and Plan: Denies abdominal pain She feels well She says she has been passing good amounts of flatus Abdomen remained soft and benign Clinically looks well Plan to clamp NG tube and hopefully remove this later on today Looks stable overall Seen and examined independently <Ryan Regalado MD - Last Filed: 09/19/25 09:41> Assessment and Plan: Now with some evidence of GI function, passing flatus. NGT output has significantly decreased. Abd remains soft, less distended, nontender. Clamp NGT for 4 hrs, check residual. Unclamp sooner if develops nausea/vomiting/abd pain. Will remove later today if residual remains low. Will resume xarelto if able to remove. Patient comfortable with plan. <So Mullins PA-C - Last Filed: 09/19/25 07:57> Time Spent With Patient Time: Total time managing care of this patient today ____ minutes. <So Mullins PA-C - Last Filed: 09/19/25 07:57> Quality Stroke Does the patient have a stroke diagnosis?: No <So Mullins PA-C - Last Filed: 09/19/25 07:57> VTE Prior VTE?: No <So Mullins PA-C - Last Filed: 09/19/25 07:57> VTE Risk Level:: Surgical - moderate <So Mullins PA-C - Last Filed: 09/19/25 07:57> VTE Device Contraindication: N/A - Device Ordered <So Mullins PA-C - Last Filed: 09/19/25 07:57> VTE Drug Contraindication: Treatment Not Indicated <So Mullins PA-C - Last Filed: 09/19/25 07:57>
[2025-09-19 09:17] LABS: Anion Gap 15 (12-20); Blood Urea Nitrogen 18 mg/dL (9-16); Calcium 8.4 mg/dL (8.4-10.2); Carbon Dioxide 24 mmol/L (22-29); Chloride 107 mmol/L (96-108); Creatinine Clr Calc Pharmacy 72.3; Estimated Glomerular Filt Rate > 60; Potassium 4.0 mmol/L (3.3-5.1); Sodium 142 mmol/L (135-145)
[2025-09-19] MEDS: Lactated Ringers 1,000 ML 100 ML IVCONT (09:42)
[2025-09-19] MEDS: Albuterol Sulfate (0.083%) 2.5 MG/3 ML VIAL.NEB INHALE (11:17)
--- NOTE | 2025-09-19 11:44 | PC.NURSE ---
Pt assessed at 11:10, no complaints of abdominal pain or discomfort and no nausea. 0ml of residual stomach volume. Surgical PA notified and advised RN to remove NGT. NGT removed at 11:40. Clear liquid diet initiated
[2025-09-19 12:40] VITALS: BP 146/87; PULSE 101
[2025-09-19] MEDS: 0.9 % Sodium Chloride Flush 3 ML SYRINGE IVFLUSH (14:15)
[2025-09-19 15:34] VITALS: BP 107/56; PULSE 103; RESP 18; TEMP 37.1; O2SAT 95
--- NOTE | 2025-09-19 16:49 | PM.EVENT ---
Event Note Date of Service: 09/19/25 Event Note: On afternoon rounds Passing flatus Had a BM Feels well neck NG tube has been removed therefore Abdomen remains soft and benign On clear liquids Okay to advance diet tomorrow Time Spent With Patient Time: Total time managing care of this patient today ____ minutes.
[2025-09-19] MEDS: Lactated Ringers 1,000 ML 80 ML IVCONT (20:00)
[2025-09-19] MEDS: Throat Lozenge, Medicated LOZENGE 1 LOZENGE MUCOUS MEM (20:02)
[2025-09-19 23:24] VITALS: BP 117/80; PULSE 89; RESP 18; TEMP 36.9; O2SAT 98
[2025-09-20 07:33] VITALS: BP 140/90; PULSE 97; RESP 16; TEMP 36.7; O2SAT 96
[2025-09-20] MEDS: 0.9 % Sodium Chloride Flush 3 ML SYRINGE IVFLUSH (08:27)
--- NOTE | 2025-09-20 08:38 | P.PNGS_ITS ---
Subjective Subjective Date of Service: 09/20/25 <So Mullins PA-C - Last Filed: 09/20/25 08:42> 09/20/25 <Ryan Regalado MD - Last Filed: 09/20/25 09:50> Interval history: She began to have bowel movements yesterday NGT had low residual and removed yesterday, started on clear liquids which she is tolerating without any reported nausea/vomiting or abdominal pain. She does not endorse a significant appetite this morning. She states she is tired. She was OOB and ambulated the halls multiple times yesterday. Continues to pass flatus as well. <So Mullins PA-C - Last Filed: 09/20/25 08:42> Physical Exam 2 Vital Signs: Vital Signs: Last Vital Signs Temp 98.1 F 09/20/25 07:33 Pulse 97 09/20/25 07:33 Resp 16 09/20/25 07:33 BP 140/90 H 09/20/25 07:33 Pulse Ox 96 09/20/25 07:33 O2 Del Method Room Air 09/20/25 07:33 BMI result Body Mass Index 32.8 <So Mullins PA-C - Last Filed: 09/20/25 08:42> Const: General: comfortable, no acute distress, alert and tired appearing <So Mullins PA-C - Last Filed: 09/20/25 08:42> Orientation/consciousness: patient oriented x3 <So Mullins PA-C - Last Filed: 09/20/25 08:42> Resp: Effort & Inspection: normal respiratory effort <BIANCA Weinstein Last Filed: 09/20/25 08:42> GI: Other: distended but improved, soft nontender <BIANCA Weinstein Last Filed: 09/20/25 08:42> Palpation (GI): no guarding and not rigid <BIANCA Weinstein Last Filed: 09/20/25 08:42> Skin: Other: warm and dry <BIANCA Weinstein Last Filed: 09/20/25 08:42> Neuro: General: patient oriented x3 and moves all extremities <So Mullins PA-C - Last Filed: 09/20/25 08:42> Objective Data Active Medications Albuterol Sulfate (Albuterol Sulfate 90 Mcg 8 Gm Inhaler) 2 puff INHALE Q6H PRN PRN Reason: shortness of breath or wheezing Albuterol Sulfate (Albuterol Sulfate (0.083%) 2.5 Mg/3 Ml Vial.Neb) 2.5 mg INHALE Q12H PRN PRN Reason: Dyspnea Last Admin: 09/19/25 11:17 Dose: 2.5 mg Documented By: KEATON Benzocaine (Throat Lozenge, Medicated Lozenge) 1 lozenge MUCOUS MEM Q2H PRN PRN Reason: Sore Throat Last Admin: 09/19/25 20:02 Dose: 1 lozenge Documented By: ALEXIA Comments: med not scanning - pharm aware Carbamazepine (Carbamazepine 200 Mg Tablet) 200 mg PO TID [facility] Last Admin: 09/20/25 08:27 Dose: 200 mg Documented By: ABEL Carvedilol (Carvedilol 6.25 Mg Tablet) 6.25 mg PO BID@0800,1200 [facility]; Protocol Last Admin: 09/20/25 08:27 Dose: 6.25 mg Documented By: ABEL Escitalopram Oxalate (Escitalopram Oxalate 20 Mg Tablet) 20 mg PO DAILY [facility] Last Admin: 09/20/25 08:27 Dose: 20 mg Documented By: ABEL Acetaminophen (Ofirmev) 1,000 mg in 100 mls @ 400 mls/hr IV Q6H [facility] Last Admin: 09/20/25 08:28 Dose: 400 mls/hr Documented By: ABEL Morphine Sulfate (Morphine Sulfate 4 Mg/Ml Cartridge) 3 mg IVPUSH Q3H PRN; Protocol PRN Reason: Pain, Severe (Pain Scale 7-10) Last Admin: 09/19/25 14:15 Dose: 3 mg Documented By: KEATON Omeprazole (Omeprazole 20 Mg Capsule.Dr) 20 mg PO DAILY@0630 [facility] Last Admin: 09/20/25 06:00 Dose: 20 mg Documented By: ALEXIA Ondansetron HCl (Ondansetron Hcl 4 Mg/2 Ml Vial) 4 mg IVPUSH Q8H PRN PRN Reason: Nausea and Vomiting Quetiapine Fumarate (Quetiapine Fumarate 100 Mg Tablet) 100 mg PO BEDTIME [facility] Last Admin: 09/19/25 20:01 Dose: 100 mg Documented By: ALEXIA Rivaroxaban (Rivaroxaban 20 Mg Tablet) 20 mg PO DAILY@1700 [facility] Last Admin: 09/19/25 16:56 Dose: 20 mg Documented By: KEATON Sodium Chloride (0.9 % Sodium Chloride Flush 3 Ml Syringe) 3 ml IVFLUSH QSHIFT [facility] Last Admin: 09/20/25 08:27 Dose: 3 ml Documented By: COLMICHAELK <So Mullins PA-C - Last Filed: 09/20/25 08:42> Labs CBC & Chem 7: 09/18/25 05:56 09/19/25 08:35 <So Mullins PA-C - Last Filed: 09/20/25 08:42> Labs: Laboratory Results - last 24 hr 09/19/25 08:35 Anion Gap 15 Estim Creat Clear Calc 72.3 Estimated GFR > 60 Random Glucose 96 Calcium 8.4 <So Mullins PA-C - Last Filed: 09/20/25 08:42> Procedures Date of Service Date of Service: 09/20/25 <So Mullins PA-C - Last Filed: 09/20/25 08:42> 09/20/25 <Ryan Regalado MD - Last Filed: 09/20/25 09:50> Progress Note: A&P Assessment and plan (1) Partial bowel obstruction: Status: Acute <So Mullins PA-C - Last Filed: 09/20/25 08:42> Assessment and Plan: She says she feels well this morning Passing flatus Abdomen is soft and nontender Advance diet as tolerated Looks well overall Seen and examined independently <Ryan Regalado MD - Last Filed: 09/20/25 09:50> Assessment and Plan: Now with good GI function, tolerating clear liquids. Abd exam overall benign, less distended nontender. Will advance to full liquids and hopefully further as tolerated later today. Encouraged OOB and increasing activity. Home when tolerating solid diet. Patient comfortable with plan. Dc IVF, encouraged oral intake. <So Mullins PA-C - Last Filed: 09/20/25 08:42> Time Spent With Patient Time: Total time managing care of this patient today ____ minutes. <So Mullins PA-C - Last Filed: 09/20/25 08:42> Quality Stroke Does the patient have a stroke diagnosis?: No <So Mullins PA-C - Last Filed: 09/20/25 08:42> VTE Prior VTE?: No <So Mullins PA-C - Last Filed: 09/20/25 08:42> VTE Risk Level:: Surgical - moderate <BIANCA Weinstein Last Filed: 09/20/25 08:42> VTE Device Contraindication: N/A - Device Ordered <So Mullins PA-C - Last Filed: 09/20/25 08:42> VTE Drug Contraindication: Treatment Not Indicated <So Mullins PA-C - Last Filed: 09/20/25 08:42>
[2025-09-20] MEDS: Throat Lozenge, Medicated LOZENGE 1 LOZENGE MUCOUS MEM (09:02)
[2025-09-20 12:28] VITALS: BP 119/65; PULSE 104
[2025-09-20 15:37] VITALS: BP 112/69; PULSE 86; RESP 16; TEMP 36.7; O2SAT 95
--- NOTE | 2025-09-20 15:38 | P.DS_ITS ---
DS: Providers Provider Date of Service: 09/20/25 Date of admission: 09/17/25 07:48 Date of discharge: 09/20/25 Primary care physician: Molly Mcgowan MD Attending physician on admission: Ryan Regalado Consults: 09/17/25 07:48 Consult to Hospitalist Routine Comment: Consulting Provider: [facility] Reason For Exam: a fib on xarelto, HTN, CAD, COPD Attending physician on discharge: Ryan Regalado DS: Diagnosis Discharge Diagnosis (1) Partial bowel obstruction: Status: Acute DS: Summary Hospital Course Hospital Course: HPI AT ADMISSION: Deidre To is a 69 year old female with PMH significant for A fib on xarelto, COPD, HTN, CAD two-vessel CABG, cirrhosis who presented to the ED with complaints of abdominal pain and vomiting that began on Tuesday. She is well known to the surgical service. She has had multiple abdominal surgeries including sigmoid colon resection with ileostomy for colon cancer in 2017, reversal of ileostomy, cholecystectomy and gastric band, all performed in [place]. She has had multiple episodes of small-bowel obstructions since then. She reports she developed pain Tuesday and felt horrible then developed nausea with multiple episodes of vomiting. She had not passed any flatus or BM. This felt similar to her previous obstructions and she therefore presented to the ED for evaluation. Work up included CBC, BMP, LFTs. She had mild AST and alk phos elevation, near her baseline, and hypomagnesemia. CT scan abd pelvis was obtained which showed a very distended stomach and dilated small bowel loops concerning for SBO. She had air distally in her rectum on my review. NGT was therefore inserted for close to 1L subsequently drained and admission requested. This morning, she feels improved since the NGT was inserted. She denies any abd pain or further nausea. She continues to deny any flatus or BM. HOSPITAL COURSE: She was admitted to the surgical service for further treatment of the SBO. NGT was inserted in the ED and she feels improved. Her abdomen was overall benign. Nonoperative measures were therefore continued and continue NGT for decompression, IVF hydration, PRN analgesics. Encouraged OOB/ambulation to promote GI function. May proceed with SBFT if no significant improvement in the next day or so and discussed possible need for surgical intervention as well if this does not resolve in a reasonable amount of time. She understands and agrees with plan. Hospitalist consult has been placed for management of her medical comorbidities. OAC held. She had an uncomplicated hospital stay. Her NGT output gradually decreased and she began to pass more flatus and then move her bowels. Her NGT was removed and her diet was advanced as tolerated from clear liquids to solid diet. Her home meds and OAC was resumed. On the day of discharge, she was tolerating a solid diet without nausea or vomiting, had no abdominal pain, had good GI function. her abdomen was benign and soft, nontender, significantly less distended. She felt ready for discharge. She was discharged to home on 09/20/25 in stable condition. She is to follow up with her PCP upon discharge. Status at Discharge Functional status at discharge: independent ambulation Overall status at discharge: patient is progressing back to baseline Time Attestation Discharge Coordination Time (in mins): 30 Quality: Safe Use of Opioids Does Pt have an Active Cancer Diagnosis on the Problem List?: No Quality: Stroke Does the patient have a stroke diagnosis?: No Physical Exam Vital Signs: Vital Signs: Last Vital Signs Temp 98.3 F 09/20/25 16:54 Pulse 100 09/20/25 16:54 Resp 18 09/20/25 16:54 BP 143/78 H 09/20/25 16:54 Pulse Ox 96 09/20/25 16:54 O2 Del Method Room Air 09/20/25 16:54 BMI result Body Mass Index 32.8 Const: General: comfortable, no acute distress and alert Orientation/consciousness: patient oriented x3 GI: Other: soft, nontender mild distention Palpation (GI): no guarding Skin: General skin exam: no rashes or lesions noted Neuro: General: patient oriented x3 and moves all extremities DS: Data Data Completed and Pending Completed studies during hospitalization [Text1]: Procedures Insertion of Infusion Device into Right Basilic Vein, Percutaneous Approach (02/28/24) Discharge Plan Discharge Anticipated Discharge Date/Time: 09/20/25 16:13 Patient Disposition: Home, Self-Care Discharge Diagnosis: SBO Referrals: Molly Mcgowan MD [Primary Care Provider, Internal Medicine] - 1 Week Discharge Medications: Continued albuterol sulfate 2.5 mg /3 mL (0.083 %) solution for nebulization 2.5 mg inhalation Q12H PRN (Reason: dyspnea) Qty: 180 0RF atorvastatin 80 mg tablet 80 mg PO DAILY Qty: 90 1RF cholecalciferol (vitamin D3) 50 mcg (2,000 unit) capsule 50 mcg PO DAILY Qty: 90 1RF magnesium glycinate 100 mg magnesium capsule 200 mg PO DAILY Qty: 60 0RF temazepam 15 mg capsule 15 mg PO BEDTIME acetaminophen 325 mg Tablet 650 mg PO Q8H PRN (Reason: ARTHRITIS PAIN) multivitamin Tablet 1 tab PO DAILY quetiapine 100 mg Tablet 100 mg PO BEDTIME Qty: 90 0RF carbamazepine 200 mg tablet 200 mg PO TID omeprazole 20 mg capsule,delayed release(DR/EC) 20 mg PO DAILY@0630 Rx Instructions: Space out from citalopram by at least 6-8 hours carvedilol 6.25 mg tablet 6.25 mg PO BID@0800,1200 Rx Instructions: must administer with a meal/food. HOLD for HR < 70 or systolic BP < 100. Pt takes with breakfast and lunch. biotin 1 mg Tablet 1 mg PO DAILY citalopram 40 mg tablet 40 mg PO DAILY calcium carbonate 500 mg calcium (1,250 mg) tablet 500 mg PO DAILY Qty: 90 1RF albuterol sulfate [Ventolin HFA] 90 mcg/actuation HFA aerosol inhaler 2 puff inhalation Q6H PRN (Reason: shortness of breath or wheezing) Qty: 8.5 1RF nystatin 100,000 unit/gram powder 1 appl topical DAILY PRN (Reason: rash) Qty: 60 1RF No Action Xarelto 20 mg tablet 20 mg PO DAILY Qty: 90 1RF Rx Instructions: must administer with evening meal Discharge Orders: Discharge Order (Routine); Ordered 09/20/25 Ordered By: Ryan Regalado Diet: Advance to usual diet Activity on Discharge: As tolerated Stand Alone Forms: Patient Portal Discharge page Print Language: Japanese Activity Restrictions/Additional Instructions: Follow up with your PCP upon discharge. Call Your Doctor If: ? ? -Your temperature exceeds 101.5? F? ? ? -You experience excessive pain or swelling ? ? -You have an unexpected reaction to medication ? ? -You experience continued vomiting/nausea Care Plan Goals: Return to baseline health and resume normal activities as tolerated. Health Concerns: SBO A fib on xarelto COPD CAD Plan of Treatment: Conservative with NGT decompression, bowel rest Small meals for the next few days then diet as tolerated Follow up with PCP. Assessment: Improved, SBo resolved Patient Instructions: Bowel Obstruction (DC) Discharge Date/Time: 09/20/25 17:25
--- NOTE | 2025-09-20 16:05 | MHC.CM.PN ---
PT NOT YET MEDICALLY CLEARED, DCP HOME ? [facility]
--- NOTE | 2025-09-20 16:14 | PM.EVENT ---
Event Note Date of Service: 09/20/25 Event Note: Seen on afternoon rounds Tolerating diet Passing flatus and has BMs Abdomen is soft and benign Denies abdominal pain She says she is ready to be discharged Okay to DC home Okay to restart rivaroxaban Time Spent With Patient Time: Total time managing care of this patient today ____ minutes.
[2025-09-20 16:54] VITALS: BP 143/78; PULSE 100; RESP 18; TEMP 36.8; O2SAT 96
== END 2025-09-20 17:25 | disposition home or self-care (01) | DRG 390 ==
LOC: HO.ED 07:24 → HO.EDOVER 07:57 → HO.S3 12:53
PROVIDERS: Surgery; Admitting Provider Physician Assistant Surgical; Emergency Provider Emergency Medicine; PCP Internal Medicine; Visit Provider Physician Assistant Surgical
DX: K56.600 Partial intestinal obstruction, unspecified as to cause (principal); I25.10 Atherosclerotic heart disease of native coronary artery without angina pectoris; J44.9 Chronic obstructive pulmonary disease, unspecified; K74.60 Unspecified cirrhosis of liver; E78.5 Hyperlipidemia, unspecified; E66.811 Obesity, class 1; Z71.3 Dietary counseling and surveillance; Z68.34 Body mass index [BMI] 34.0-34.9, adult; E83.42 Hypomagnesemia; Z85.038 Personal history of other malignant neoplasm of large intestine; I48.91 Unspecified atrial fibrillation; Z98.84 Bariatric surgery status; Z95.1 Presence of aortocoronary bypass graft; Z87.891 Personal history of nicotine dependence; Z79.01 Long term (current) use of anticoagulants; Z79.899 Other long term (current) drug therapy
CPT/HCPCS: 36415; 71045; 74177; 80048; 80053; 81001; 83690; 83735; 85025; 93005; 99285; J0131; J0737; J2270; J3360; J3475; J7120; Q9967

== ENCOUNTER → 2025-09-17 03:43 | Outpatient (BNV) | payer MEDICARE, SELFPAY | PROVIDERS: Admitting Provider Physician Assistant Surgical; Emergency Provider Emergency Medicine; PCP Internal Medicine; Visit Provider Internal Medicine Cardiovascular Disease | DX: I48.91 Unspecified atrial fibrillation (principal); I44.4 Left anterior fascicular block | CPT/HCPCS: 93010 ==

== ENCOUNTER → 2025-09-17 04:49 | Outpatient (BNV) | payer MEDICARE, SELFPAY | PROVIDERS: Admitting Provider Physician Assistant Surgical; Emergency Provider Emergency Medicine; PCP Internal Medicine; Visit Provider Radiology Vascular & Interventional Radiology | DX: R11.10 Vomiting, unspecified (principal); Z46.59 Encounter for fitting and adjustment of other gastrointestinal appliance and device; Z87.19 Personal history of other diseases of the digestive system | CPT/HCPCS: 71045; 74177 ==

== ENCOUNTER → 2025-09-17 07:48 | Outpatient (BNV) | payer MEDICARE, SELFPAY | PROVIDERS: Admitting Provider Physician Assistant Surgical; Emergency Provider Emergency Medicine; PCP Internal Medicine; Visit Provider Surgery | DX: K56.600 Partial intestinal obstruction, unspecified as to cause (principal) | CPT/HCPCS: 99222; 99232; 99238; 99499 ==

== ENCOUNTER → 2025-09-17 07:48 | Outpatient (BNV) | payer MEDICARE, SELFPAY | PROVIDERS: Admitting Provider Physician Assistant Surgical; Emergency Provider Emergency Medicine; PCP Internal Medicine; Visit Provider Nurse Practitioner Acute Care | DX: F31.9 Bipolar disorder, unspecified (principal) | CPT/HCPCS: 99223 ==

== ENCOUNTER 2025-09-26 12:57 | Outpatient (REF) | payer MEDICARE, SELFPAY ==
--- OUTSIDE RECORDS SUMMARY | 2024-05-10 03:15 | XMS_ITS ---
Author Organization [facility] Address [address] [place] [id number] Care Team Providers Care Model Maker Fiberglass Name Role Phone Juan M WADDELL, Molly Jensen Primary Care Provider Un available Black, Carli Unavailable [phone] Encounters Encounter Location Date Provider Diagnosis [address] [address] 05/10/2024 Carli Black Plan Of Treatment No Information Progress Notes * Deidre LUNADOB: (69 yo F)Acc No.[id number]:05/10/2024 Progress Note Patient: Deidre CUELLAR Provider: Reza Jenkins DPM :1955 A ge:68 Y S ex:Female Date:05/10/2024 Address:[address] [place] [phone] Pcp:Sumanth Orozco Subjective: * Chief Complaints: * * Medical History: Objective: * Vitals: Assessment: Plan: * Treatment: * Images: * The named appointment provid er may or may not be the originator of this progress note, and it is not deemed complete until electronically signed by the appointment provider. Sign off status: Pending * Provider: Reza Jenkins DPM Date: 0 05/10/2024 Generated for Steve hernandez/Yasmeen/eTransmitting on: 11/26/2024 04:08 PM EST
--- NOTE | ~2025-09-26 | CT_ITS ---
EXAMINATION: CT LUNG SCREENING HISTORY: Z87.891 - Personal history of nicotine dependence TECHNIQUE: Low dose axial images were obtained from the sternal notch to upper abdomen without IV contrast per standard departmental protocol. Sagittal and coronal reformatted images were also obtained and reviewed. One or more of the following techniques was used for dose reduction: Automated exposure control, adjustment of the mA and/or kV according to patient size, use of iterative reconstruction technique. DLP: 53 mGy-cm COMPARISON: Previous chest CT June 2024 and abdominal and pelvic CT scans most recent September 2025 FINDINGS: Lungs: No pulmonary nodule. Emphysema. Diffuse ground increased groundglass attenuation and interlobular septal thickening. Question nonspecific interstitial pneumonitis versus a combined emphysema and interstitial disease related to smoking. Central airways are clear. Coronary Calcification: severe Aortic Arch Calcification: mild Potentially Significant Incidentals : none Additional Chest Findings: There are post-CABG changes. The heart is slightly enlarged. There is severe mitral annular calcification. There is mild aortic valve calcification. Normal caliber thoracic aorta with the isles calcification. There is no pleural or pericardial effusion. No mediastinal or axillary lymphadenopathy is identified. Visualized upper abdomen: Cirrhotic appearing liver and small amount of ascites. Calcified upper abdominal aorta. There is also peripheral calcification of the surya splenic venous confluence. Postoperative changes from gastric lap band. Stomach appears less distended than seen on CT of the abdomen and pelvis from earlier this month. Degenerative changes of the spine. Postsurgical changes of the lower cervical spine. Median sternotomy wires. CT/CT lung screening IMPRESSION: Emphysema and interstitial lung disease similar to prior exam. No pulmonary nodules. Post CABG changes. Enlarged heart. Gastric lap band. Stomach appears less distended than seen on recent abdominal and pelvic CT. LUNG-RADS ASSESSMENT: Lung-RADS 2: Benign MANAGEMENT: Continue annual screening with LDCT in 12 months Category S: N/A Electronically signed by: Nasreen Dawson MD 09/26/2025 02:01 PM HODA
--- OUTSIDE RECORDS SUMMARY | 2025-09-26 16:09 | XMS_ITS | Clinical Summary ---
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; Service: Cardiology; Laterality: Right; Medical History Medical [...] Used Date Smoking Tobacco: Former Cigarettes 1 Q uit: 11/30/2018 Smokeless Tobacco: Current Alcohol [...] Depression Screening 11/14/2024 COVID-19 Vaccine (1 - 2024-2 6 season) 2025 Influenza Vaccine (#1) 2025 RSV [...] this topic Medical Devices Implanted Type Area Negative Developer Device Identifier Shelf Expiration Date Model / Serial / Lot Device Angio-Seal Vip .035in 70cm 6fr [employer] - [id number] Implanted:11/28 (Quantity not on file) [facility] [id number] / / Care Teams Library Attendant Relationship Specialty Start Date End Date Andrade Robles MD [address] [place] [address] [place] [id number] PCP - General Cardiology 11/27/18
--- OUTSIDE RECORDS SUMMARY | 2025-09-26 16:09 | XMS_ITS | Patient Health Record ---
Author Organization [facility] Address [address] [place] [address] Support Name Relationship Address Phone Deidre To Guarantor Unknown [phone] Reason For Referral No Information Plan Of Treatment No Information Insurance Providers Payer Name Payer Address Payer Phone Subscriber Number Group Number Insured Name Patient Relationship to Insured Coverage Start Date Coverage End Date Medicare [address] [address] [place] [address] [id number] Deidre To Self - patient is the insured Pre Op Covid Testing not for submission KHRIS [id number] [id number] preop Deidre To Self - patient is the insured
--- OUTSIDE RECORDS SUMMARY | 2025-09-26 16:09 | XMS_ITS ---
Author Organization [facility] Care Team Providers Care Plant Protection Supervisor Name Role Phone Migue Martin Unavailable Unavailable Yecenia Valladares Unavailable Unavailable Lakisha Alegria Unavailable Allergies and adverse reactions No Known Allergies Care Team Name Role Address Phone Organization Dates Migue Martin PCP [address] [address], [facility] (Office): : [facility] 09/16/2024 - 09/19/2024 Yecenia Valladares [address] [place], [address], [facility] (Office): : [facility] 09/16/2024 - 09/19/2024 Lakisha Alegria [address] [facility] [address], [place], [address], [facility] (Office): : [facility] 09/16/2024 - 09/19/2024 Immunizations Immunization Status Vaccine Details Vaccine Code CodeSystem Jose e Notes (Influenza) FLUAD - Adjuvanted - High Dose - 65+ completed Influenza, adjuvanted, inactivated, trivalent, injectable, preservative free 168 CVX created date: 09/18/2024 administered date: 08/14/2024 Mental Status Section Date Assessment Total Score Description 09/19/2024 BIMS 15 cognitively int act CAM 0 No delirium ind icated PHQ-9 01 minimal depress ion 09/18/2024 BIMS 15 cognitively int act CAM 0 No delirium ind icated PHQ-9 01 minimal depress ion Insurance Providers Problems Problem # Description Date of onset Resolved Date Code CodeSystem Concern Status 1 ESSENTIAL (PRIMARY) HYPERTENSION 09/17/[address] active 2 INTERSTITIAL PULMONARY DISEASE, UNSPECIFIED 09/17/[address] active 3 ATHEROSCLEROTIC HEART DISEASE OF [place] CORONARY ARTERY WITHOUT ANGINA PECTORIS 09/16/[address] active 4 BODY MASS INDEX [BMI] 35.0-35.9, ADULT 09/16/[address] active 5 DIPLOPIA 09/16/[address] active 6 GASTRO-ESOPHAGEAL REFLUX DISEASE WITHOUT ESOPHAGITIS 09/16/[address] active 7 INSOMNIA, UNSPECIFIED 09/16/[address] active 8 ORTHOSTATIC HYPOTENSION 09/16/[address] active 9 OTHER LACK OF COORDINATION 09/16/[address] active 10 PERSONAL HISTORY OF OTHER VENOUS THROMBOSIS AND EMBOLISM 09/16/[address] active 11 SHORT BOWEL SYNDROME, UNSPECIFIED 09/16/[address] active 12 SYNCOPE AND COLLAPSE 09/16/[address] active 13 TREMOR, UNSPECIFIED 09/16/[address] active 14 UNSPECIFIED ATRIAL FIBRILLATION 09/16/[address] active 15 UNSPECIFIED MOOD [AFFECTIVE] DISORDER 09/16/[address] active 16 UNSPECIFIED PROTEIN-CALORIE MALNUTRITION 09/16/[address] active Reason for Referral No Reasons for Referral Entered Social History Social History Observation Description Start Date End Date Code Code System Current Smoking Status Tobacco smoking consumption unknown 344654556 SNOMED CT Sex Assigned At Female 1955 21191-9 [facility] Gender Identity Sexual Orientation Vital Signs Code Code System Vitals Name Values and Units Timing Information 8462-4 [facility] Blood Pressure-Diastolic Value=65 Un its=mmHg 09/19/2024 8480-6 [facility] Blood Pressure-Systolic Kdybd=430 Un its=mmHg 09/19/2024 10602-2 [facility] Pain Level Value=0.0 09/19/2024 9279-1 [facility] Respiratory Rate Value=18.0 Units=/m in 09/18/2024 8310-5 [facility] Body Temperature Value=97.9 Units= F 09/18/2024 8867-4 [facility] Heart rate Value=72.0 Units=/min 03/2024 09678-2 [facility] O2 % BldC Oximetry Value=95.0 Units= % 09/18/2024 24784-0 [facility] Weight Pvhns=468.0 Units=Lbs 03/2024 8302-2 [facility] Height Value=60.0 Units=Inches 09/17/2024
--- OUTSIDE RECORDS SUMMARY | 2025-09-26 16:09 | XMS_ITS | Patient Health Record ---
Author Organization [facility] [place]ca [place] Address [address] [place] [address] Care Team Providers Care Foreign Car Mechanic Name Role Phone Juan M WADDELL, Molly Jensen Primary Care Provider Un available Black, Carli Unavailable [phone] Allergies No Known Allergies Reason For Referral No Information Medications Medication SIG (Take, Route, Frequency, Duration) Notes Start Date End Date Status [place] 3 1000 MG 1 capsule Orally Thr [...] Problem Acquired hammer toe of right foot (0288195747784790) Other hammer toe(s) (acquired), right foot (M20.41) Active confirmed Problem Acquired hammer toe of left foot (2618098857293739) Other hammer toe(s) (acquired), left foot (M20.42) Active confirmed Problem 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 (6805372) 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 confirmed Problem Bilateral atherosclerosis of arteries of lower limbs (disorder) (26150403100737791 ) Atherosclerosis of duckwater artery of both lower extremities, with unspecified presence of clinical manifestation (I70.203) Active confirmed Plan Of Treatment Pending Test Test Name Order Date [id number] SKIN LESIONS, 2 TO 4 01/26/20 [id number] DYSTROPHIC NAILS ANY # Insurance Providers Payer Name Payer Address Payer Phone Subscriber Number Group Number Insured Name Patient Relationship to Insured Coverage Start Date Coverage End Date Medicare National [employer]t Sv[employer] [address] [place] [address] [id number] Deidre To Self - patient is the insured A[employer] Secondary to Medicare [address] [place] [address] [id number] Deidre To Self - patient is the [...] left foot 1996 Hospitalization History Reason Date(Month/Year) [facility] [place] -3 day stay -fall 02/04
--- OUTSIDE RECORDS SUMMARY | 2025-09-26 16:09 | XMS_ITS | Clinical Summary ---
Author Organization [facility] Address [address] [place] [address] Care Team Providers Care Transit Coach Operator Name Role Phone Andrade Robles MD Primary Care Provider [phone] Allergies No known active allergies Medications Medication [...] ADULT PO) Take by mouth. 0 Active [place] 3 1000 MG CAPS Take by mouth. [...] this topic Medical Devices Implanted Type Area Chute Builder Device Identifier Shelf Expiration Date Model / Serial / Lot Device Angio-Seal Vip .035in 70cm 6fr [employer] - [id number] - [id number] Implanted:11/28 at [facility] and [facility] (Quantity not on file) [facility] [place] [id number] / / Advance Directives For more information, please contact: [phone] Latest Code Status on File Code Status [...] way: discussion with patient . Care Teams Transit Coach Operator Relationship Specialty Start Date End Date Andrade Robles MD PCP - General Cardiology 11/27/18
== END 2025-09-26 12:58 | disposition home or self-care (01) ==
LOC: HO.CT 12:57
PROVIDERS: PCP Internal Medicine; Visit Provider Physician Assistant Medical
DX: Z12.2 Encounter for screening for malignant neoplasm of respiratory organs (principal); Z87.891 Personal history of nicotine dependence
CPT/HCPCS: 71271

== ENCOUNTER → 2025-09-26 12:59 | Outpatient (BNV) | payer MEDICARE, SELFPAY | PROVIDERS: PCP Internal Medicine; Visit Provider Radiology Diagnostic Radiology | DX: Z12.2 Encounter for screening for malignant neoplasm of respiratory organs (principal); Z87.891 Personal history of nicotine dependence; J43.9 Emphysema, unspecified | CPT/HCPCS: 71271 ==

== ENCOUNTER 2025-10-22 12:06 | Outpatient (AMB) | payer MEDICARE, SELFPAY ==
[2025-10-22 12:06] VITALS: BP 118/62; PULSE 81; O2SAT 97; BMI 32.8
--- NOTE | 2025-10-22 12:06 | HO.NEPHOV_ITS ---
Vital Signs 10/22/25 12:06 Height 5 ft Weight 168 lb BMI 32.8 BP 118/62 Blood Pressure Location Rt brachial Position Sitting Pulse 81 Pulse Source Pulse Oximeter Pulse Oximetry (%) 97 Oxygen Delivery Method Room Air Intake Visit Reasons: FU- Hypomagnesemia/HTN-Conf Dental Technician Required: No Accompanied by: Self / Same As Patient Allergies No Known Allergies Allergy (Verified 10/22/25 12:09) Medication List - Last Reconciled 10/22/25 by Harsh Valencia MD acetaminophen 650 mg PO Q8H PRN albuterol sulfate 2.5 mg (3 mL) inhalation Q12H PRN albuterol sulfate 90 mcg/actuation (Ventolin HFA) 2 puffs inhalation Q6H PRN atorvastatin 80 mg PO DAILY biotin 1 mg PO DAILY calcium carbonate 500 mg PO DAILY carbamazepine 200 mg PO TID carvedilol 6.25 mg PO BID@0800,1200 cholecalciferol (vitamin D3) 50 mcg PO DAILY citalopram 40 mg PO DAILY magnesium glycinate 200 mg (2 x 100 mg magnesium) PO DAILY multivitamin 1 tab PO DAILY nystatin 1 appl topical DAILY PRN omeprazole 20 mg PO DAILY@0630 quetiapine 100 mg PO BEDTIME rivaroxaban (Xarelto) 20 mg PO DAILY temazepam 15 mg PO BEDTIME HPI Comments Details: History of Present Illness The patient is a 69 year old female presenting for a nephrology follow-up for chronic hypomagnesemia. She has a history of colon cancer. In early September, the patient presented to the emergency room and was hospitalized for a large bowel obstruction. She was treated with a nasogastric tube for five days and did not require any surgical intervention. She denies any current related symptoms of nausea, vomiting, pain, or diarrhea. She is scheduled to see her automobile body customizer, Dr. Griffin, in November. Regarding her chronic hypomagnesemia, her magnesium level was 1.5 during her recent hospitalization and normalized after she received magnesium. Previous workup revealed hypocalciuria with normal renal magnesium excretion. Her kidney function, serum calcium, and phosphorus are normal. Her home medications include daily vitamin D, magnesium, and omeprazole. [facility] Medical History COPD (chronic obstructive pulmonary disease) C. difficile colitis History of small bowel obstruction Hx of colon cancer, stage III Bipolar 1 disorder CAD (coronary artery disease) Persistent atrial fibrillation Essential hypertension Hyperlipidemia Personal history of nicotine dependence Unsteady gait Thrombocytopenia Anemia Cervical radiculopathy due to degenerative joint disease of spine History of radius fracture Degenerative disc disease, cervical Acquired deafness of left ear Surgical History Status post coronary artery bypass graft History of coronary artery bypass graft x 2 (~2018) History of cardiac catheterization History of partial colectomy (~2015) History of reversal of ileostomy History of resection of small bowel (~2020) History of laparoscopic adjustable gastric banding (~2004) History of laparoscopic cholecystectomy (~2003) History of parotidectomy (~2014) History of cervical discectomy (~2013) History of surgery on right wrist History of colonoscopy History of esophagogastroduodenoscopy (EGD) History of appendectomy (~2003) History of tonsillectomy History of bunionectomy Family History Sister Substance use disorder Insulin dependent type 1 diabetes mellitus Mother Colon cancer Breast cancer Coronary artery disease High cholesterol Essential hypertension Father Heart disease Brother Heart disease Social History Household Members: None Housing: Apartment Are you a primary pet caretaker to a significant other at home: No Do you presently have visiting nurse or other home services: No Alcohol intake: never Patient Tobacco Use Status: Former Tobacco user Tobacco use type: Cigarette Years Smoked: (former smoker - onset 30yo, 1ppd x 33yrs, 30pyh, quit 11/2018) e-Cigarette/Vaping Use: Never Used Second Hand Smoke Exposure: No Advance Directives Date on File: 05/09/24 service: No Current occupational status: retired Cognitive needs: No Hearing needs: No Vision needs: Yes Physical Exam Exam Exam: Physical Exam General: Awake. Comfortable. HENT: Neck supple. Mucosa moist. Pulmonary: Lungs aeration equal. No rales. Cardiology: Heart S1-S2 heard. No gallop. Abdomen: Soft. Non tender. Bowel sounds normal. Neurologic: No involuntary movements. No myoclonus. Extremities: No edema. No rash. Vital Signs: Last Vital Signs Pulse 81 10/22/25 12:06 BP 118/62 10/22/25 12:06 Pulse Ox 97 10/22/25 12:06 Oxygen Delivery Method Room Air 10/22/25 12:06 BMI result Body Mass Index 32.8 Results Reviewed Nephrology Results: Hgb, (12.0-16.0) 11.5 g/dl L 09/18/25 WBC, (4.8-10.8) 9.5 X10*3/uL 09/18/25 Plt Count, (160-400) 158 X10*3/uL L 09/18/25 Sodium, (135-145) 139 mmol/L Today Potassium, (3.3-5.1) 4.2 mmol/L Today Chloride, (96-108) 109 mmol/L H Today Carbon Dioxide, (22-29) 27 mmol/L Today BUN, (9-16) 6 mg/dL L Today Creatinine, (0.5-1.4) 0.82 mg/dL Today Calcium, (8.4-10.2) 8.5 mg/dL Today Urine Protein, (Neg-Trace) Trace mg/dL 09/17/25 Assessment & Plan Assessment & Plan (1) Hypomagnesemia: Code(s): E83.42 - Hypomagnesemia Category: Medical (2) Essential hypertension: Code(s): I10 - Essential (primary) hypertension Category: Medical Plan Plan 1. Hypomagnesemia - The patient has chronic hypomagnesemia, with a recent level of 1.5 during hospitalization which has since normalized. - Her kidney function is normal. Possibility of Gitelman syndrome based on hypomagnesemia and hypocalcemia urea. However there is no alkalosis and serum potassium has been normal. - A serum magnesium level will be checked today. - Will contact the patient if the result is low. - Recommended to continue daily vitamin D and magnesium supplements. - Follow-up is scheduled in a couple of months. 2. Bowel Obstruction - The patient had a recent bowel obstruction in September that resolved with conservative management via NG tube and did not require surgery. - She currently denies any nausea, vomiting, or abdominal pain. - She will follow up with her automobile body customizer, Dr. Griffin, in November for further management. Orders: Orders Comprehensive Met. Panel Today E83.42 - Hypomagnesemia, I10 - Essential (primary) hypertension Magnesium Today E83.42 - Hypomagnesemia, I10 - Essential (primary) hypertension Coding Level of Care Code Est Pt Level 4 (43320) Diagnoses Hypomagnesemia E83.42 Essential hypertension I10
== END 2025-10-22 12:22 | disposition home or self-care (01) ==
LOC: HO.HKA 12:07
PROVIDERS: PCP Internal Medicine; Visit Provider Internal Medicine Hypertension Specialist
DX: E83.42 Hypomagnesemia (principal); I10 Essential (primary) hypertension
CPT/HCPCS: 99214

== ENCOUNTER → 2025-10-22 12:06 | Outpatient (BNVA) | payer MEDICARE, SELFPAY | PROVIDERS: PCP Internal Medicine; Visit Provider Internal Medicine Hypertension Specialist | DX: E83.42 Hypomagnesemia (principal); I10 Essential (primary) hypertension; Z85.038 Personal history of other malignant neoplasm of large intestine | CPT/HCPCS: 36415; 80053; 83735; 99212 ==

== ENCOUNTER 2025-10-22 12:26 | Outpatient (REF) | payer MEDICARE, SELFPAY ==
[2025-10-22 13:47] LABS: Alanine Aminotransferase 20 U/L (0-31); Albumin Level 3.4 g/dL (3.5-5.0); Alkaline Phosphatase 172 U/L (39-117); Anion Gap 7 (12-20); Aspartate Amino Transferase 42 U/L (5-31); Blood Urea Nitrogen 6 mg/dL (9-16); Calcium 8.5 mg/dL (8.4-10.2); Carbon Dioxide 27 mmol/L (22-29); Chloride 109 mmol/L (96-108); Estimated Glomerular Filt Rate > 60; Magnesium 1.3 mg/dL (1.6-2.6); Potassium 4.2 mmol/L (3.3-5.1); Sodium 139 mmol/L (135-145); Total Protein 7.4 g/dL (6.5-8.0)
== END 2025-10-22 12:27 | disposition home or self-care (01) ==
LOC: HO.10HDL 12:26
PROVIDERS: Visit Provider Internal Medicine Hypertension Specialist
DX: I10 Essential (primary) hypertension (principal); E83.42 Hypomagnesemia
CPT/HCPCS: 36415; 80053; 83735